=== PATIENT | male | born 1955 | race Caucasian/White ===

== ENCOUNTER 2020-05-15 10:33 | Outpatient (REF) | payer MEDICARE, SELFPAY ==
[2020-05-15 11:44] LABS: MANUAL DIFF FLAG NO
[2020-05-15 11:57] LABS: Basophils Absolute Auto 0.1 X10*3/uL (0.0-0.2); Eosinophils Absolute Auto 0.1 X10*3/uL (0.0-0.4); Hematocrit 35.2 % (42-52); Hemoglobin 11.7 g/dl (14.0-18.0); Imm Gran Abs Auto 0.04 X10*3/uL (0.00-0.03); Imm Gran Pct Auto 0.7 % (0.0-0.4); Lymphocytes Absolute Auto 1.7 X10*3/uL (1.2-4.9); Lymphocytes Percent Auto 26.9 % (20-40); Mean Corpuscular HGB Conc 33.2 g/dl (31.0-36.0); Mean Corpuscular Hemoglobin 32.1 pg (27.0-33.0); Mean Corpuscular Volume 96.4 fL (80-98); Mean Platelet Volume 11.2 fL (9.4-12.4); Monocytes Absolute Auto 0.6 X10*3/uL (0.1-1.2); Monocytes Percent Auto 10.3 % (2-11); Neutrophils Absolute Auto 3.6 X10*3/uL (2.0-8.3); Neutrophils Percent Auto 59.1 % (45-73); Platelet Count 264 X10*3/uL (160-400); Red Blood Count 3.65 X10*6/uL (4.60-5.80); Red Cell Distribution Width 11.9 % (11.0-16.0); White Blood Count 6.1 X10*3/uL (4.8-10.8)
[2020-05-15 12:06] LABS: Glucose Urine UA NEG (NEG); Leukocyte Esterase Urine NEG (NEG); Nitrite Urine NEG (NEG); PH 6.5 (5.0-8.0); Urine Blood TRACE (NEG); Urine Ketones NEG (NEG); Urine Protein 1+ MG/DL (NEG-TRACE)
[2020-05-15 12:09] LABS: Appearance Urine CLEAR; Color Urine YELLOW
[2020-05-15 12:16] LABS: Alanine Aminotransferase 24 U/L (0-40); Albumin Level 4.1 g/dL (3.5-5.0); Alkaline Phosphatase 57 U/L (39-117); Aspartate Amino Transferase 21 U/L (5-37); Bilirubin Total 0.5 mg/dL (0.0-1.0); Blood Urea Nitrogen 12 mg/dL (9-16); Calcium 8.7 mg/dL (8.4-10.2); Cholesterol 126 mg/dL; Estimated Glomerular Filt Rate > 60; Glucose Fasting 141 mg/dL (60-99); HDL Cholesterol 47 mg/dL; LDL Cholesterol Calculated 63 mg/dl; Total Protein 6.3 g/dL (6.5-8.0); Triglycerides 81 mg/dL
[2020-05-15 12:18] LABS: WBC Urine 0 /HPF (0-4)
[2020-05-15 12:19] LABS: RBC Urine 0-2 /HPF (0)
[2020-05-15 12:25] LABS: Anion Gap 12 (12-20); Carbon Dioxide 25 mmol/L (22-29); Chloride 100 mmol/L (96-108); Potassium 5.4 mmol/l (3.3-5.1); Sodium 132 mmol/L (135-145)
[2020-05-15 12:37] LABS: TSH reflex Free T4 1.19 mIU/mL (0.32-4.0)
[2020-05-15 12:45] LABS: Creatinine Urine 51.78 mg/dL; Microalbum/Creatinine Ratio Ur 843.9 ug/mg cr
[2020-05-15 12:54] LABS: Vitamin B12 281 pg/mL (200-900)
== END 2020-05-15 10:34 | disposition home or self-care (01) ==
LOC: HO.LAB 10:33
PROVIDERS: PCP Internal Medicine; Visit Provider Internal Medicine
DX: E11.42 Type 2 diabetes mellitus with diabetic polyneuropathy (principal); Z79.4 Long term (current) use of insulin; I10 Essential (primary) hypertension; R80.9 Proteinuria, unspecified; K21.9 Gastro-esophageal reflux disease without esophagitis; K50.919 Crohn's disease, unspecified, with unspecified complications; E78.00 Pure hypercholesterolemia, unspecified
CPT/HCPCS: 36415; 80053; 80061; 81001; 81003; 82043; 82607; 82746; 84443; 85025

== ENCOUNTER → 2020-05-31 13:26 | Outpatient (BNVA) | payer MEDICARE, SELFPAY | PROVIDERS: Visit Provider Internal Medicine Gastroenterology | DX: Z13.89 Encounter for screening for other disorder (principal) | CPT/HCPCS: Q3014 ==

== ENCOUNTER 2020-06-12 14:12 | Outpatient (REF) | payer MEDICARE, SELFPAY ==
--- NOTE | 2020-06-12 14:16 | XR_ITS ---
EXAMINATION: XR CHEST CLINICAL INFORMATION: Cough COMPARISON: Chest radiographs 01/21/2019, 03/30/2012 TECHNIQUE: 2 views of the chest were obtained. FINDINGS: Lungs are clear. There is no airspace consolidation or groundglass opacity. The costophrenic sulci are well-defined. There is no effusion. Heart is borderline enlarged similar to prior study. The hilar and mediastinal contours and bony structures are stable. XR/XR chest 2V IMPRESSION: Unremarkable examination.
== END 2020-06-12 14:13 | disposition home or self-care (01) ==
LOC: HO.XRAY 14:12
PROVIDERS: PCP Internal Medicine; Visit Provider Internal Medicine
DX: R05 Cough (principal)
CPT/HCPCS: 71046

== ENCOUNTER 2021-02-14 13:29 | Outpatient (REF) | payer MEDICARE, SELFPAY ==
[2021-02-14 15:45] LABS: MANUAL DIFF FLAG NO
[2021-02-14 15:50] LABS: Basophils Absolute Auto 0.1 X10*3/uL (0.0-0.2); Basophils Percent Auto 0.7 % (0-2); Eosinophils Absolute Auto 0.1 X10*3/uL (0.0-0.4); Eosinophils Percent Auto 1.4 % (0-4); Hematocrit 33.4 % (42-52); Hemoglobin 11.8 g/dl (14.0-18.0); Imm Gran Abs Auto 0.04 X10*3/uL (0.00-0.03); Imm Gran Pct Auto 0.6 % (0.0-0.4); Lymphocytes Absolute Auto 1.5 X10*3/uL (1.2-4.9); Lymphocytes Percent Auto 20.3 % (20-40); Mean Corpuscular HGB Conc 35.3 g/dl (31.0-36.0); Mean Corpuscular Hemoglobin 32.9 pg (27.0-33.0); Mean Platelet Volume 10.7 fL (9.4-12.4); Monocytes Absolute Auto 0.8 X10*3/uL (0.1-1.2); Monocytes Percent Auto 11.1 % (2-11); Neutrophils Absolute Auto 4.7 X10*3/uL (2.0-8.3); Neutrophils Percent Auto 65.9 % (45-73); Platelet Count 280 X10*3/uL (160-400); Red Blood Count 3.59 X10*6/uL (4.60-5.80); White Blood Count 7.2 X10*3/uL (4.8-10.8)
[2021-02-14 16:07] LABS: Alanine Aminotransferase 32 U/L (0-40); Albumin Level 4.3 g/dL (3.5-5.0); Alkaline Phosphatase 71 U/L (39-117); Anion Gap 13 (12-20); Aspartate Amino Transferase 23 U/L (5-37); Blood Urea Nitrogen 11 mg/dL (9-16); C Reactive Protein 0.07 mg/dL (< or = 0.50); Calcium 9.3 mg/dL (8.4-10.2); Carbon Dioxide 22 mmol/L (22-29); Chloride 97 mmol/L (96-108); Estimated Glomerular Filt Rate > 60; Glucose Random 124 mg/dL (60-115); Lipase 43 U/L (8-78); Potassium 5.5 mmol/L (3.3-5.1); Sodium 126 mmol/L (135-145); Total Protein 6.8 g/dL (6.5-8.0)
[2021-02-15 08:59] LABS: CDiff Gene PCR NEGATIVE (Negative)
[2021-02-20 22:41] LABS: Calprotectin, Fecal 19 mcg/g
== END 2021-02-14 13:30 | disposition home or self-care (01) ==
LOC: HO.LAB 13:29
PROVIDERS: PCP Physician Assistant; Referring Provider Physician Assistant; Visit Provider Internal Medicine Gastroenterology
DX: R11.2 Nausea with vomiting, unspecified (principal); K50.919 Crohn's disease, unspecified, with unspecified complications; K21.9 Gastro-esophageal reflux disease without esophagitis; E11.42 Type 2 diabetes mellitus with diabetic polyneuropathy; Z79.4 Long term (current) use of insulin; Z86.010 Personal history of colon polyps
CPT/HCPCS: 36415; 80053; 81335; 83690; 83993; 85025; 86140; 87493; 99212

== ENCOUNTER 2021-02-14 17:42 | Emergency (ER) | payer MEDICARE, SELFPAY ==
--- NOTE | 2021-02-14 | ECG_ITS ---
Test Reason : ABNORMAL LABS Blood Pressure : / mmHG Vent. Rate : 056 BPM Atrial Rate : 056 BPM P-R Int : 180 ms QRS Dur : 086 ms QT Int : 430 ms P-R-T Axes : -02 026 047 degrees QTc Int : 414 ms Sinus bradycardia Otherwise normal ECG When compared with ECG of 15-JUL-2019 10:10, No significant change was found Referred By: Generic ED Physician Electronically Signed By:UMANG THORNTON
[2021-02-14 17:58] VITALS: BP 176/74; PULSE 60; RESP 18; TEMP 36.7; O2SAT 97; BMI 31.6
--- NOTE | 2021-02-14 19:04 | PC.NURSE ---
IV established, labs obtained. Awaiting primary MD parra.
[2021-02-14 19:05] VITALS: BP 184/90; PULSE 56; RESP 20; TEMP 37.1; O2SAT 99
[2021-02-14 19:09] LABS: MANUAL DIFF FLAG NO
[2021-02-14 19:10] LABS: Basophils Absolute Auto 0.1 X10*3/uL (0.0-0.2); Basophils Percent Auto 0.7 % (0-2); Eosinophils Absolute Auto 0.1 X10*3/uL (0.0-0.4); Eosinophils Percent Auto 1.4 % (0-4); Hemoglobin 11.4 g/dl (14.0-18.0); Imm Gran Abs Auto 0.04 X10*3/uL (0.00-0.03); Imm Gran Pct Auto 0.6 % (0.0-0.4); Lymphocytes Absolute Auto 1.6 X10*3/uL (1.2-4.9); Lymphocytes Percent Auto 21.7 % (20-40); Mean Corpuscular HGB Conc 35.6 g/dl (31.0-36.0); Mean Corpuscular Volume 92.8 fL (80-98); Mean Platelet Volume 10.7 fL (9.4-12.4); Monocytes Absolute Auto 0.9 X10*3/uL (0.1-1.2); Monocytes Percent Auto 11.7 % (2-11); Neutrophils Absolute Auto 4.6 X10*3/uL (2.0-8.3); Neutrophils Percent Auto 63.9 % (45-73); Platelet Count 247 X10*3/uL (160-400); Red Blood Count 3.45 X10*6/uL (4.60-5.80); White Blood Count 7.2 X10*3/uL (4.8-10.8)
[2021-02-14 19:25] LABS: Blood Urea Nitrogen 11 mg/dL (9-16); Calcium 9.1 mg/dL (8.4-10.2); Creatinine Clr Calc Pharmacy 96.9; Estimated Glomerular Filt Rate > 60; Glucose Random 120 mg/dL (60-115)
[2021-02-14 19:30] LABS: Troponin-I High Sensitivity 9.9 ng/L (<3.5-35.0)
[2021-02-14 19:35] LABS: Anion Gap 13 (12-20); Carbon Dioxide 22 mmol/L (22-29); Chloride 96 mmol/L (96-108); Sodium 126 mmol/L (135-145)
[2021-02-14 19:51] LABS: Osmolality, Serum 273 mosm/kg (281-305)
[2021-02-14 20:00] VITALS: BP 197/80; PULSE 56; RESP 16; TEMP 37.1; O2SAT 99
[2021-02-14 20:19] LABS: Glucose Urine UA NEG (NEG); Leukocyte Esterase Urine NEG (NEG); Nitrite Urine NEG (NEG); UACC Culture Trigger NO; Urine Blood NEG (NEG); Urine Ketones NEG (NEG); Urine Protein 2+ MG/DL (NEG-TRACE)
[2021-02-14 20:20] LABS: Appearance Urine CLEAR; Color Urine YELLOW
[2021-02-14 20:26] LABS: RBC Urine 0 /HPF (0); Squamous Epithelial Cell Urine TRACE /LPF; WBC Urine 0 /HPF (0-4)
[2021-02-14 20:28] LABS: Osmolality Urine 271 mosm/kg (373-1093)
[2021-02-14] MEDS: 0.9 % Sodium Chloride 1,000 ML 999 ML IV (21:19)
--- NOTE | 2021-02-14 21:25 | ED_ITS ---
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 The patient states that he has been having diarrhea for 3-4 hours multiple times a day for the last month. He states that he had a scheduled appointment to see his auto seat cover installer today. The patient does have essential hypertension. The auto seat cover installer found that patient was hypertensive with a blood pressure of 184/84. A gastrologist also checked blood work on the patient and the patient was hyponatremic with a sodium of 126 and hyperkalemic with a potassium of 5.5. The patient was advised to go to the emergency department for evaluation. The patient states that he has been feeli ng extremely fatigued and tired for approximately 1 month. He states these had severe lethargy as well. The patient states that he has been drinking a large amount of fluid than usual. He states that he drinks anywhere from 2-312 oz bottles of water per day. He denied fever, chills, chest pain, shortness of breath, dyspnea on exertion, frequency, urgency or dysuria. The patient is a diabetic but he states that he has not been checking his glucose for the last 2- 3 months and is uncertain what his glucose levels have been. Related Data Home Medications Medication Instructions Recorded Confirmed aspirin 81 mg tablet,delayed 81 mg PO DAILY 04/10/20 02/14/21 release (Adult Low Dose Aspirin) dulaglutide 0.75 mg/0.5 mL 0.75 mg SUBCUT QWEEK 06/12/20 02/14/21 subcutaneous pen injector (Trulicity) Previous Rx's Medication Instructions Recorded pen needle, diabetic 31 gauge x See Rx Instructions .ROUTE 03/18/2010/28 (Easy Touch) .COMPLEX 30 Days #60 ea fluticasone propionate 50 1 spray INTRANASAL DAILY #16 cap 06/12/20 mcg/actuation nasal spray,suspension insulin glargine 100 unit/mL (3 60 unit SUBCUT DAILY 30 Days #15 ml 09/26/20 mL) subcutaneous pen (Lantus Solostar U-100 Insulin) cetirizine 10 mg capsule (Zyrtec) 10 mg PO DAILY PRN 90 Days #90 cap 11/27/20 atenolol 50 mg tablet 50 mg PO DAILY #30 tab 11/28/20 atorvastatin 40 mg tablet 40 mg PO DAILY #90 tab 11/28/20 metformin 1,000 mg tablet 1,000 mg PO BID #60 tab 11/28/20 nystatin 100,000 unit/gram topical 1 appl TOPICAL DAILY 15 Days #30 g 11/28/20 cream omeprazole 40 mg capsule,delayed 40 mg PO DAILY #30 cap 12/14/20 release trazodone 50 mg tablet 50 mg PO BEDTIME #30 tab 12/14/20 fluoxetine 10 mg capsule 10 mg PO QAM #30 cap 12/25/20 irbesartan 300 mg tablet 300 mg PO DAILY #90 cap 01/21/21 omeprazole 40 mg capsule,delayed 40 mg PO BID 90 Days #180 cap 02/14/21 release Allergies Allergy/AdvReac Type Severity Reaction Status Date / Time sertraline [SERTRALINE] Allergy Severe RASH, ABD Verified 02/14/21 17:58 PAIN DEHYDRATION Penicillins [PENICILLINS] Allergy Intermediate RASH Verified 02/14/21 17:58 Review of Systems Review of Systems: Yes all other systems are reviewed and are negative [facility] Past Medical History [facility] Narrative: Past surgical history: None. Social history: The patient denies tobacco use. He states that he drinks 212 packs of beer per week. He denies drug use. 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 Microalbuminuria Obesity (BMI 30-39.9) Primary osteoarthritis, left shoulder Pure hypercholesterolemia Recurrent cough Type 2 diabetes mellitus with diabetic polyneuropathy Surgical History History of esophagogastroduodenoscopy (EGD) History of umbilical hernia repair Hx of colonoscopy Family History Family History Father Diabetes Melanoma Mother Diabetes Hypertension Cancer Sister Diabetes Social History Social History Housing: Apartment Alcohol intake: current Alcohol intake frequency: a few times a week Second Hand Smoke Exposure: No Advance Directives: No Advance Directives Information Provided: No service: No Current occupational status: employed Physical Exam Vital Signs: Vital Signs: Last Vital Signs Temp 98.8 F 02/14/21 20:00 Pulse 56 02/14/21 20:00 Resp 16 02/14/21 20:00 BP 197/80 H 02/14/21 20:00 Pulse Ox 99 02/14/21 20:00 Body Mass Index 31.6 Const: General: cooperative and no acute distress Orientation/consciousness: oriented to person and oriented to place Limitations: no limitations HENMT: Head: Yes normal to inspection, Yes normocephalic and Yes atraumatic Ears: external ears normal General nose exam: Normal external nose present Face and sinus: Yes normal facial exam Mouth: Normal oral and palatal mucosa present Throat: Yes posterior oropharynx normal Eyes: General: appearance normal, both eyes and all related structures Pupils: Equal, round and reactive pupils present Neck: Neck: Yes normal visual inspection, Yes no lymphadenopathy, Yes trachea midline and Yes supple Chest: Chest palpation & inspection: normal inspection of the chest and normal palpation of entire chest wall Resp: Effort & Inspection: normal respiratory effort and able to speak in complete sentences Auscultation: clear to auscultation bilaterally Cardio: Rate: regular rate Rhythm: regular rhythm Heart sounds: S1 normal heart sound present, S2 normal heart sound present and no murmurs GI: Inspection: Yes normal to inspection Palpation (GI): Soft to palpation, nontender and no guarding Auscultation: normal bowel sounds : General: Yes no CVA tenderness Back/Spine/Pelvis: Back: no CVA tenderness Skin: General skin exam: no rashes or lesions noted Neuro: General: oriented to person and oriented to place Cranial nerves: Yes CN's II-XII intact bilaterally and Yes Equal, round and reactive pupils present Cognition (Neuro): normal cognition Motor exam (neuro): 5/5 motor strength present throughout Extrem: General: Yes normal to inspection Psych: Appearance: grossly normal Speech and movement: Normal speech and movement present Affect: normal affect Attitude: cooperative Thought process: Normal thought process present Thought content: Normal thought content present Course Course Course Narrative: 65-year-old male who was sent to the emergency department for evaluation of hypertension, hyponatremia and hyperkalemia. Patient does have a history of Crohn's disease and has had multiple episodes of loose stool per day for several months. He has also been drinking increased amounts of water over the past several months. Patient did complain of fatigue and lethargy otherwise had no other complaints. Vital signs did reveal elevated blood pressures ranging from 176/174 to 197/80 however the patient was relatively asymptomatic. His 12 EKG revealed a sinus bradycardia, but the patient is taking atenolol for his blood pressure. Repeat laboratory evaluation revealed mild anemia with an H&H of 11.4 and 32. Patient's sodium was 126 which was low but his potassium was normal at 5.0. The patient had a low serum osmolality and a low urine osmolality suggesting that is low-sodium was secondary to drinking too much water. Patient's glucose was only slightly elevated at 120. The patient was given sodium chloride 1 L IV. Patient was discharged home. He was advised to l imited his water intake to at small amounts only when he is thirsty. The patient was advised to check his blood pressure on Thursday, Thursday and Thursday in the morning for 2 weeks and discuss these blood pressure medications with his primary care provider. Patient was discharged home The patient was given verbal and printed instructions prior to discharge. The patient was advised to follow-up with his PCP in 2 days and to return to the emergency department if his symptoms get worse or if he develops any new symptoms that are concerning to him. Medical Decision Making Lab Data Result diagrams: 02/14/21 19:02/14/21 19:03 Labs: Lab Results 02/14/21 02/14/21 02/14/21 Range/Units 19:03 19:03 19:03 WBC 7.2 (4.8-10.8) X10*3/uL RBC 3.45 L (4.60-5.80) X10*6/uL Hgb 11.4 L (14.0-18.0) g/dl Hct 32.0 L (42-52) % MCV 92.8 (80-98) fL MCH 33.0 (27.0-33.0) pg MCHC 35.6 (31.0-36.0) g/dl RDW 12.0 (11.0-16.0) % Plt Count 247 (160-400) X10*3/uL MPV 10.7 (9.4-12.4) fL Immature Gran % (Auto) 0.6 H (0.0-0.4) % Neut % (Auto) 63.9 (45-73) % Lymph % (Auto) 21.7 (20-40) % [place] % (Auto) 11.7 H (2-11) % Eos % (Auto) 1.4 (0-4) % Baso % (Auto) 0.7 (0-2) % Lymph # (Auto) 1.6 (1.2-4.9) X10*3/uL [place] # (Auto) 0.9 (0.1-1.2) X10*3/uL Eos # (Auto) 0.1 (0.0-0.4) X10*3/uL Baso # (Auto) 0.1 (0.0-0.2) X10*3/uL Abs Immat Gran (auto) 0.04 H (0.00-0.03) X10*3/uL Absolute Neuts (auto) 4.6 (2.0-8.3) X10*3/uL Absolute Nucleated RBC 0.000 (0.0-0.012) X10*3/uL Nucleated RBC % (auto) 0.0 (0.0-0.2) /100WBC Sodium 126 L (135-145) mmol/L Potassium 5.0 (3.3-5.1) mmol/L Chloride 96 (96-108) mmol/L Carbon Dioxide 22 (22-29) mmol/L Anion Gap 13 (12-20) BUN 11 (9-16) mg/dL Creatinine 0.97 (0.5-1.4) mg/dL Estim Creat Clear Calc 96.9 Estimated GFR > 60 Random Glucose 120 H (60-115) mg/dL Osmolality (281-305) mosm/kg Calcium 9.1 (8.4-10.2) mg/dL Troponin I High Sens 9.9 (<3.5-35.0) ng/L Urine Color Urine Appearance Urine pH (5.0-8.0) Ur Specific [place] (1.005-1.025) Urine Protein (NEG-TRACE) MG/DL Urine Glucose (UA) (NEG) MG/DL Urine Ketones (NEG) MG/DL Urine Blood (NEG) Urine Nitrite (NEG) Ur Leukocyte Esterase (NEG) Urine RBC (0) /HPF Urine WBC (0-4) /HPF Ur Squamous Epith Cells /LPF Urine Bacteria /LPF Urine Osmolality (373-1093) mosm/kg Ur Random Sodium mmol/L 02/14/21 02/14/21 02/14/21 Range/Units 19:03 20:11 20:11 WBC (4.8-10.8) X10*3/uL RBC (4.60-5.80) X10*6/uL Hgb (14.0-18.0) g/dl Hct (42-52) % MCV (80-98) fL MCH (27.0-33.0) pg MCHC (31.0-36.0) g/dl RDW (11.0-16.0) % Plt Count (160-400) X10*3/uL MPV (9.4-12.4) fL Immature Gran % (Auto) (0.0-0.4) % Neut % (Auto) (45-73) % Lymph % (Auto) (20-40) % [place] % (Auto) (2-11) % Eos % (Auto) (0-4) % Baso % (Auto) (0-2) % Lymph # (Auto) (1.2-4.9) X10*3/uL [place] # (Auto) (0.1-1.2) X10*3/uL Eos # (Auto) (0.0-0.4) X10*3/uL Baso # (Auto) (0.0-0.2) X10*3/uL Abs Immat Gran (auto) (0.00-0.03) X10*3/uL Absolute Neuts (auto) (2.0-8.3) X10*3/uL Absolute Nucleated RBC (0.0-0.012) X10*3/uL Nucleated RBC % (auto) (0.0-0.2) /100WBC Sodium (135-145) mmol/L Potassium (3.3-5.1) mmol/L Chloride (96-108) mmol/L Carbon Dioxide (22-29) mmol/L Anion Gap (12-20) BUN (9-16) mg/dL Creatinine (0.5-1.4) mg/dL Estim Creat Clear Calc Estimated GFR Random Glucose (60-115) mg/dL Osmolality 273 L (281-305) mosm/kg Calcium (8.4-10.2) mg/dL Troponin I High Sens (<3.5-35.0) ng/L Urine Color YELLOW Urine Appearance CLEAR Urine pH 6.0 (5.0-8.0) Ur Specific [place] 1.010 (1.005-1.025) Urine Protein 2+ H (NEG-TRACE) MG/DL Urine Glucose (UA) NEG (NEG) MG/DL Urine Ketones NEG (NEG) MG/DL Urine Blood NEG (NEG) Urine Nitrite NEG (NEG) Ur Leukocyte Esterase NEG (NEG) Urine RBC 0 (0) /HPF Urine WBC 0 (0-4) /HPF Ur Squamous Epith Cells TRACE /LPF Urine Bacteria NONE /LPF Urine Osmolality 271 L (373-1093) mosm/kg Ur Random Sodium mmol/L 02/14/21 Range/Units 20:11 WBC (4.8-10.8) X10*3/uL RBC (4.60-5.80) X10*6/uL Hgb (14.0-18.0) g/dl Hct (42-52) % MCV (80-98) fL MCH (27.0-33.0) pg MCHC (31.0-36.0) g/dl RDW (11.0-16.0) % Plt Count (160-400) X10*3/uL MPV (9.4-12.4) fL Immature Gran % (Auto) (0.0-0.4) % Neut % (Auto) (45-73) % Lymph % (Auto) (20-40) % [place] % (Auto) (2-11) % Eos % (Auto) (0-4) % Baso % (Auto) (0-2) % Lymph # (Auto) (1.2-4.9) X10*3/uL [place] # (Auto) (0.1-1.2) X10*3/uL Eos # (Auto) (0.0-0.4) X10*3/uL Baso # (Auto) (0.0-0.2) X10*3/uL Abs Immat Gran (auto) (0.00-0.03) X10*3/uL Absolute Neuts (auto) (2.0-8.3) X10*3/uL Absolute Nucleated RBC (0.0-0.012) X10*3/uL Nucleated RBC % (auto) (0.0-0.2) /100WBC Sodium (135-145) mmol/L Potassium (3.3-5.1) mmol/L Chloride (96-108) mmol/L Carbon Dioxide (22-29) mmol/L Anion Gap (12-20) BUN (9-16) mg/dL Creatinine (0.5-1.4) mg/dL Estim Creat Clear Calc Estimated GFR Random Glucose (60-115) mg/dL Osmolality (281-305) mosm/kg Calcium (8.4-10.2) mg/dL Troponin I High Sens (<3.5-35.0) ng/L Urine Color Urine Appearance Urine pH (5.0-8.0) Ur Specific [place] (1.005-1.025) Urine Protein (NEG-TRACE) MG/DL Urine Glucose (UA) (NEG) MG/DL Urine Ketones (NEG) MG/DL Urine Blood (NEG) Urine Nitrite (NEG) Ur Leukocyte Esterase (NEG) Urine RBC (0) /HPF Urine WBC (0-4) /HPF Ur Squamous Epith Cells /LPF Urine Bacteria /LPF Urine Osmolality (373-1093) mosm/kg Ur Random Sodium 32.0 mmol/L ECG Data Attestation: I personally reviewed and interpreted this ECG as follows: Interpretation: 1905: Sinus bradycardia with a rate of 56, normal [place] interval, QRS duration and QTC interval, inverted T-wave in lead V1, no ST segment elevation, no ST segment depression, no PACs, no PVCs, except for the sinus bradycardia, this is a normal EKG. Discharge Plan Discharge Clinical Impression: Acute hyponatremia, Essential hypertension Patient Disposition: Home, Self-Care Instructions: Hyponatremia (ED) Additional Instructions: Your serum sodium was low but your serum was dilute and your urine was dilute as well suggesting that your drinking too much water as the cause of your low sodium. You should only drink small amounts of water when your thirsty and drink other fluids that have salt and electrolytes in it. The reason to check your blood pressure at home is to give your doctor an idea of what your blood pressure does when you are not in the doctor's office. Take your blood pressure in the morning, on Mondays, Wednesdays and Fridays and then write down these readings to discuss them with your doctor at your next visit. If you doctor decides that your blood pressure readings are high than your doctor will start you on medications. If you get started on medications, it often takes 1-2 months or longer to get your blood pressure under control. Lowering your blood pressure to rapidly or getting your blood pressure too low quickly can make you feel bad. Please return to the emergency department if you develops concerning symptoms such as severe headache, chest pain, shortness of breath, difficulty walking secondary to shortness of breath, numbness, weakness, difficulty talking. Take Tylenol (acetaminophen) 500 mg pills, 2 pills every 4 to 6 hours as needed for pain. Follow-up with your doctor to discuss your blood pressure readings. Please return to the emergency department if your symptoms get worse or if you develop any new symptoms that are concerning to you. Prescriptions: No Action pen needle, diabetic [Easy Touch] 31 gauge x 5/16 needle See Rx Instructions .ROUTE .COMPLEX 30 Days Qty: 60 RF: 3 Lantus Solostar U-100 Insulin 100 unit/mL (3 mL) insulin pen 60 unit subcut DAILY 30 Days Qty: 15 RF: 12 nystatin 100,000 unit/gram cream 1 appl topical DAILY 15 Days Qty: 30 RF: 0 atenolol 50 mg tablet 50 mg PO DAILY Qty: 30 RF: 3 metformin 1,000 mg tablet 1,000 mg PO BID Qty: 60 RF: 3 atorvastatin 40 mg tablet 40 mg PO DAILY Qty: 90 RF: 0 omeprazole 40 mg capsule,delayed release(DR/EC) 40 mg PO DAILY Qty: 30 RF: 5 trazodone 50 mg tablet 50 mg PO BEDTIME Qty: 30 RF: 5 fluoxetine 10 mg capsule 10 mg PO QAM Qty: 30 RF: 3 irbesartan 300 mg tablet 300 mg PO DAILY Qty: 90 RF: 1 omeprazole 40 mg capsule,delayed release(DR/EC) 40 mg PO BID 90 Days Qty: 180 RF: 0 aspirin [Adult Low Dose Aspirin] 81 mg tablet,delayed release (DR/EC) 81 mg PO DAILY RF: 0 Zyrtec 10 mg capsule 10 mg PO DAILY PRN (Reason: allergy symptoms) 90 Days Qty: 90 RF: 1 Trulicity 0.75 mg/0.5 mL pen injector 0.75 mg subcut QWEEK RF: 0 fluticasone propionate 50 mcg/actuation spray,suspension 1 spray intranasal DAILY Qty: 16 RF: 5
[2021-02-14 22:00] VITALS: BP 210/95; PULSE 58; RESP 16; TEMP 36.9; O2SAT 99
--- NOTE | 2021-02-14 22:00 | PC.NURSE ---
Pt ambulating to the bathroom with a steady gait. Aware of plan to finish IVF and discharge home.
--- NOTE | 2021-02-14 22:11 | PC.NURSE ---
Pt noted to be hypertensive. Pt self reports missing doses of antihypertensives, states he has not taken his PM dose as of yet.
--- NOTE | 2021-02-14 22:14 | PC.NURSE ---
MD aware of BP, per MD continue to discharge home as pt plans to take his antihypertensive once home.
== END 2021-02-14 22:24 | disposition home or self-care (01) ==
PROVIDERS: Emergency Provider Emergency Medicine Emergency Medical Services; PCP Internal Medicine
DX: E23.2 Diabetes insipidus (principal); R79.89 Other specified abnormal findings of blood chemistry; Z79.899 Other long term (current) drug therapy
CPT/HCPCS: 36415; 80048; 81001; 83930; 83935; 84300; 84484; 85025; 93005; 96360; 99284

== ENCOUNTER 2021-03-15 10:12 | Outpatient (REF) | payer MEDICARE, SELFPAY ==
[2021-03-15 10:27] LABS: MANUAL DIFF FLAG NO
[2021-03-15 10:58] LABS: Basophils Absolute Auto 0.1 X10*3/uL (0.0-0.2); Basophils Percent Auto 1.2 % (0-2); Eosinophils Absolute Auto 0.1 X10*3/uL (0.0-0.4); Eosinophils Percent Auto 1.3 % (0-4); Hematocrit 32.1 % (42-52); Hemoglobin 10.6 g/dl (14.0-18.0); Imm Gran Abs Auto 0.02 X10*3/uL (0.00-0.03); Imm Gran Pct Auto 0.3 % (0.0-0.4); Lymphocytes Absolute Auto 1.4 X10*3/uL (1.2-4.9); Lymphocytes Percent Auto 22.5 % (20-40); Mean Corpuscular Hemoglobin 31.6 pg (27.0-33.0); Mean Corpuscular Volume 95.8 fL (80-98); Mean Platelet Volume 10.9 fL (9.4-12.4); Monocytes Absolute Auto 0.6 X10*3/uL (0.1-1.2); Monocytes Percent Auto 9.2 % (2-11); Neutrophils Absolute Auto 3.9 X10*3/uL (2.0-8.3); Neutrophils Percent Auto 65.5 % (45-73); Platelet Count 337 X10*3/uL (160-400); Red Blood Count 3.35 X10*6/uL (4.60-5.80); Red Cell Distribution Width 11.8 % (11.0-16.0)
[2021-03-15 11:05] LABS: Estimated Average Glucose 126 mg/dL
[2021-03-15 11:28] LABS: Alanine Aminotransferase 33 U/L (0-40); Albumin Level 4.3 g/dL (3.5-5.0); Alkaline Phosphatase 58 U/L (39-117); Anion Gap 12 (12-20); Aspartate Amino Transferase 23 U/L (5-37); Bilirubin Total 0.6 mg/dL (0.0-1.0); Blood Urea Nitrogen 23 mg/dL (9-16); Calcium 9.7 mg/dL (8.4-10.2); Carbon Dioxide 26 mmol/L (22-29); Chloride 104 mmol/L (96-108); Cholesterol 217 mg/dL; Estimated Glomerular Filt Rate 53; Glucose Fasting 131 mg/dL (60-99); HDL Cholesterol 37 mg/dL; LDL Cholesterol Calculated 144 mg/dl; Potassium 5.5 mmol/L (3.3-5.1); Sodium 136 mmol/L (135-145); Total Protein 6.5 g/dL (6.5-8.0); Triglycerides 183 mg/dL
[2021-03-15 11:50] LABS: TSH reflex Free T4 2.27 uIU/mL (0.32-4.0); Vitamin D 25-OH Total 31.1 ng/mL (>30)
[2021-03-15 11:52] LABS: Prostate Specific Antigen Scr 0.79 ng/mL (<0.05-4.0)
[2021-03-15 12:06] LABS: Creatinine Urine 165.42 mg/dL; Microalbum/Creatinine Ratio Ur 1031.3 ug/mg cr
[2021-03-15 12:56] LABS: Appearance Urine CLEAR; Color Urine YELLOW; Glucose Urine UA NEG (NEG); Leukocyte Esterase Urine NEG (NEG); Nitrite Urine NEG (NEG); UACC Culture Trigger NO; Urine Blood NEG (NEG); Urine Ketones NEG (NEG); Urine Protein 2+ MG/DL (NEG-TRACE)
[2021-03-15 13:02] LABS: RBC Urine 0 /HPF (0); Squamous Epithelial Cell Urine TRACE /LPF; WBC Urine 0 /HPF (0-4)
[2021-03-16 15:15] LABS: Potassium 5.5 mmol/L (3.3-5.1); Sodium 135 mmol/L (135-145)
[2021-03-16 15:16] LABS: Anion Gap 11 (12-20); Carbon Dioxide 26 mmol/L (22-29); Chloride 104 mmol/L (96-108)
[2021-03-16 15:17] LABS: Blood Urea Nitrogen 23 mg/dL (9-16); Estimated Glomerular Filt Rate 52; Glucose Fasting 129 mg/dL (60-99)
[2021-03-16 15:18] LABS: Calcium 9.7 mg/dL (8.4-10.2); Cholesterol 215 mg/dL; LDL Cholesterol Calculated 142 mg/dl; Triglycerides 182 mg/dL
[2021-03-16 15:19] LABS: HDL Cholesterol 37 mg/dL
== END 2021-03-15 10:13 | disposition home or self-care (01) ==
LOC: HO.LAB 10:12
PROVIDERS: Nurse Practitioner Family; PCP Internal Medicine; Visit Provider Internal Medicine Gastroenterology
DX: Z00.00 Encounter for general adult medical examination without abnormal findings (principal); Z12.5 Encounter for screening for malignant neoplasm of prostate; K50.919 Crohn's disease, unspecified, with unspecified complications; I10 Essential (primary) hypertension; K21.9 Gastro-esophageal reflux disease without esophagitis; E78.00 Pure hypercholesterolemia, unspecified; E11.42 Type 2 diabetes mellitus with diabetic polyneuropathy; Z79.4 Long term (current) use of insulin; R80.9 Proteinuria, unspecified; E66.9 Obesity, unspecified; M19.012 Primary osteoarthritis, left shoulder
CPT/HCPCS: 36415; 80048; 80053; 80061; 81001; 81003; 82043; 82306; 82947; 83036; 84153; 84443; 85025

== ENCOUNTER 2021-04-03 10:00 | Outpatient (RCR) | payer MEDICARE, SELFPAY ==
--- NOTE | 2021-03-15 09:55 | MHC.PT.EP ---
[facility] [employer] [facility] [place] [facility] [place] Office [address] [phone] F: [phone] F: [phone] F: [phone] F: [phone] Physical Therapy Plan of Care Date of Evaluation: Date of Surgery: N/A Diagnosis: LBP pain in L leg pain in L shoulder Assessment: pt overall is vague in his responses and has difficulty describing pain and activities that reproduce it. pt presents w/ adequate strength but significantly reduced flexibility and AROM. pt presents to physical therapy with pain, decreased range of motion, decreased strength, impaired functional mobility, impaired postural awareness, and gait deviations. pt is a good candidate for skilled PT due to age, potential remediation of impairments, typical disease/condition progression and prognosis, comorbidities, and motivation. pt would benefit from tailored strengthening and stretching exercise program, functional training, gait training, postural re-training, neuromuscular re-education, modalities as needed for pain, equipment safety demonstration. Frequency and Duration: The patient will be seen 2x/wk for 6 wks Short Term Goals: pt will be I w/ HEP to promote self-management of condition. pt will demo proper sitting posture w/ lumbar roll to promote neutral spine w/ self-care activities and eating. pt will improve hamstring length by 15* to remediate gait impairments on even ground. Zinc Skimmer Goals: pt will report <1/10 L shoulder pain w/ reaching overhead to objects in cabinets. pt will lift 30# object from ground to waist height x5 reps w/ proper lifting mechanics to promote return to functional lifting. pt will report <1/10 B knee pain w/ ambulation of >2500' on even ground w/ LRAD to promote pain-free return to community ambulation. Treatment Plan: Modalities to reduce pain, spasms and effusion. Manual therapy to restore motion and function. Therapeutic exercise to improve strength and flexibility. Neuromuscular re-education for posture and balance. Therapeutic activities to return to functional activities of daily living. Electronically signed by: Sandi Meyers PT, DPT Please sign and return to therapist. Thank you for your referral.
--- NOTE | 2021-05-03 10:13 | MHC.PT.DC ---
[facility] [place] Office [place] Office [place] Office [address] 140 [facility] [phone] F: [phone] F: [phone] F: [phone] F: [phone] Physical Therapy Discharge Report Diagnosis: LBP pain in L leg pain in L shoulder Date of Surgery: N/A Date of Evaluation: 03/15/21 Date of Discharge: 05/03/21 Treatments to Date: 5 Cancellations to Date: 6 No Shows to Date: 1 Discharge Status: Visit Non-compliance Discharge Summary: The patient has not been seen in this office for approximately one month. Since it has been over 30 days since the patient was last seen he will need a new script if he wishes to return to physical therapy. He is discharged from this physical therapy plan of care in accordance with [facility] attendance policy. Electronically signed by: Sandi Meyers PT, DPT Please sign and return to therapist. Thank you for your referral.
== END 2021-05-03 10:14 | disposition home or self-care (01) ==
LOC: HO.PT 10:00
PROVIDERS: PCP Internal Medicine; Visit Provider Internal Medicine
DX: M54.50 Low back pain, unspecified (principal); M79.605 Pain in left leg; M25.512 Pain in left shoulder
CPT/HCPCS: 97110; 97162; 97530

== ENCOUNTER 2021-04-19 07:52 | Day surgery (SDC) | payer MEDICARE, SELFPAY ==
--- NOTE | 2021-04-18 10:20 | P.CONAN_ITS ---
Documented by User: Aminta Tsang NP 04/18/21 10:21 HPI - Anesthesia Eval Consult details Narrative: 65yo M for Upper Endoscopy and Colonoscopy 02/2021 - Sent to ED by GI provider for low Na (126). Found to have low serum and urine osmo. Given IV NS. Instructed to decrease water intake. Will recheck labs DOS. PMFSH Active Problems Active Problems: All Active Problems (Updated 04/09/21 @ 16:04 by Ollie Ferrari MD) Epididymitis (Acute) Diabetic retinopathy (Acute) Alcohol use disorder (Acute) Hypoglycemia (Acute) Lower back pain (Acute) Left leg pain (Acute) Left shoulder pain (Acute) Prostate cancer screening (Acute) Annual physical exam (Acute) Throat congestion (Acute) Chewing tobacco nicotine dependence (Acute) Tinea unguium (Acute) History of colon polyps (Acute) Nausea and vomiting (Acute) Recurrent cough (Acute) Obesity (BMI 30-39.9) (Acute) Depression (Acute) Anxiety (Acute) Insomnia (Acute) Primary osteoarthritis, left shoulder (Acute) Crohn's disease (Acute) GERD (gastroesophageal reflux disease) (Acute) Pure hypercholesterolemia (Acute) Benign essential hypertension (Acute) Microalbuminuria (Acute) MCFP (current) use of insulin (Acute) Type 2 diabetes mellitus with diabetic polyneuropathy (Acute) Allergic rhinitis (Acute) Past Medical History Medical History Allergic rhinitis Anxiety Benign essential hypertension Crohn's disease Depression GERD (gastroesophageal reflux disease) H/O hyperkalemia 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 Microalbuminuria Obesity (BMI 30-39.9) Primary osteoarthritis, left shoulder Prostate cancer screening Pure hypercholesterolemia Recurrent cough Type 2 diabetes mellitus with diabetic polyneuropathy Family History Family History Father Diabetes Melanoma Mother Diabetes Hypertension Cancer Sister Diabetes Surgical History Surgical History History of esophagogastroduodenoscopy (EGD) History of umbilical hernia repair Hx of colonoscopy Social History Social History Housing: Apartment Alcohol intake: current Alcohol intake frequency: former alcohol drinker Patient Tobacco Use Status: Former Tobacco user Quit Date: 3 months ago Second Hand Smoke Exposure: No Use of substances other than those prescribed or required for medical reasons: No Are you DNR?: No Advance Directives: No Advance Directives Information Provided: Yes service: No Current occupational status: employed Meds Allergies Allergy/AdvReac Type Severity Reaction Status Date / Time sertraline [SERTRALINE] Allergy Severe RASH, ABD Verified 04/19/21 08:18 PAIN DEHYDRATION Penicillins [PENICILLINS] Allergy Intermediate RASH Verified 04/19/21 08:18 Home Medications Medication Instructions Recorded Confirmed Last Taken Type aspirin 81 mg tablet,delayed 81 mg PO DAILY 04/10/20 02/21/21 04/18/21 10:00 History release (Adult Low Dose Aspirin) blood pressure test kit-wrist 02/15/21 Unknown History insulin glargine 100 unit/mL (3 60 unit SUBCUT BEDTIME 02/21/21 02/21/21 Unknown History mL) subcutaneous pen (Lantus Solostar U-100 Insulin) Exam Exam Date and Time: April 18, 2021 1020 Pertinent Lab Results Pertinent Lab Results: Laboratory Tests 03/15/21 10:25 WBC 6.0 Hgb 10.6 L Hct 32.1 L Plt Count 337 D Laboratory Tests 03/15/21 10:35 BUN 23 H Creatinine 1.38 Narrative Narrative: EKG 02/2021 Vent. Rate : 056 BPM ? ? Atrial Rate : 056 BPM ?? P-R Int : 180 ms? QRS Dur : 086 ms ? ? QT Int : 430 ms ? ? ? P-R-T Axes : -02 026 047 degrees ?? QTc Int : 414 ms ? 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 Microalbuminuria Obesity (BMI 30-39.9) Primary osteoarthritis, left shoulder Prostate cancer screening Pure hypercholesterolemia Recurrent cough Type 2 diabetes mellitus with diabetic polyneuropathy Family History Family History Father Diabetes Melanoma Mother Diabetes Hypertension Cancer Sister Diabetes Surgical History Surgical History History of esophagogastroduodenoscopy (EGD) History of umbilical hernia repair Hx of colonoscopy History of Problems with Anesthesia: No Social History Social History Housing: Apartment Alcohol intake: current Alcohol intake frequency: former alcohol drinker Patient Tobacco Use Status: Former Tobacco user Quit Date: 3 months ago Second Hand Smoke Exposure: No Use of substances other than those prescribed or required for medical reasons: No Are you DNR?: No Advance Directives: No Advance Directives Information Provided: Yes service: No Current occupational status: employed Meds Allergies Allergy/AdvReac Type Severity Reaction Status Date / Time sertraline [SERTRALINE] Allergy Severe RASH, ABD Verified 04/19/21 08:18 PAIN DEHYDRATION Penicillins [PENICILLINS] Allergy Intermediate RASH Verified 04/19/21 08:18 Home Medications Medication Instructions Recorded Confirmed Last Taken Type aspirin 81 mg tablet,delayed 81 mg PO DAILY 04/10/20 02/21/21 04/18/21 10:00 History release (Adult Low Dose Aspirin) blood pressure test kit-wrist 02/15/21 Unknown History insulin glargine 100 unit/mL (3 60 unit SUBCUT BEDTIME 02/21/21 02/21/21 Unknown History mL) subcutaneous pen (Lantus Solostar U-100 Insulin) Exam Airway Mallampati Class: III TM Dist: >3cm Neck ROM: Full Partial: Upper Loose/Missing/Broken Teeth: Yes, Upper and Lower Heart: RRR Lungs: CTA Assessment and Plan Assessment Anesthesia Assessment: Anesthesia Plan Discussed Final Anesthetic Review History of Problems with Anesthesia: No NPO: Yes ASA Class: II and III Final Preanesthetic Review: Meds/Allgs Chart Reviewed, Consent Obtained/Reviewed and Anes Risks/Benef Reviewed Patient Risk: Intermediate Procedure Risk: Intermediate Anesthetic Plan Anesthetic Plan: MAC: Disposition: Standard PACU
[2021-04-19 08:33] VITALS: BP 165/69; PULSE 48; RESP 20; TEMP 36.3; O2SAT 97; BMI 31.6
[2021-04-19 08:44] LABS: Glucose, Whole Blood 154 mg/dL (60-115)
[2021-04-19 08:46] LABS: Anion Gap 11 (12-20); Carbon Dioxide 26 mmol/L (22-29); Chloride 104 mmol/L (96-108); Potassium 4.4 mmol/L (3.3-5.1); Sodium 137 mmol/L (135-145)
[2021-04-19] MEDS: Lactated Ringers 1,000 ML 50 ML IVCONT (08:50)
--- NOTE | 2021-04-19 09:26 | MHC.SHP ---
Pre-Procedural Eval Section A Date of Service: 04/19/21 The patient is an INPATIENT: No The History & Physical has been completed within 30 days and I have reviewed it.: No Section B Chief Complaint: screening,reflux disease Details of Present Illness: GERD, decreased appetite, nausea, Crohn's disease Relevant Family History (Specify if Yes): No Relevant Social History: None Present Medications: see Short Stay Collaborative assessment Medical History: Significant History (Allergic rhinitis Anxiety Benign essential hypertension Crohn's disease Depression GERD (gastroesophageal reflux disease) Insomnia [facility] (current) use of insulin Microalbuminuria Obesity (BMI 30-39.9) Primary osteoarthritis, left shoulder Pure hypercholesterolemia Recurrent cough Type 2 diabetes) History of Previous Operations: Relevant previous surgery/procedure and date(s) (History of esophagogastroduodenoscopy (EGD) History of umbilical hernia repair Hx of colonoscopy) Allergies: Allergies Allergy/AdvReac Type Severity Reaction Status Date / Time sertraline [SERTRALINE] Allergy Severe RASH, ABD Verified 04/19/21 08:18 PAIN DEHYDRATION Penicillins [PENICILLINS] Allergy Intermediate RASH Verified 04/19/21 08:18 Review of Systems Sugical H&P ROS: Negative: Constitution, Cardiovascular and Respiratory and Yes, Specify: Gastrointestinal (diarrhea) Exam Surgical H&P Exam: Normal: Heart, Normal: Lungs, Normal: Extremities and Normal: Abdomen Plan Diagnosis/Plan: Unchanged I have reviewed the history and physical and performed a pertinent physical examination on my patient. No changes have occurred unless specified.
--- NOTE | 2021-04-19 09:36 | W.PM.OPN ---
Operative Note Operative Note Date of Service: 04/19/21 Narrative: Pre-op diagnosis:?Crohn's disease, nausea, decreased appetite, abdominal bloating Post-op diagnosis:?other (Gastritis, diverticulosis, hemorrhoids) Procedure:? FLEXIBLE TRANSORAL UPPER GASTROINTESTINAL ENDOSCOPY WITH BIOPSIES AND COLONOSCOPY TILL CECUM WITH BIOPSIES UPPER ENDOSCOPY Consent:?Indications for the procedure and potential complications of bleeding, perforation, reaction to medications and missed diagnosis were discussed with the patient and informed consent was obtained. Instrument:?Olympus GIF H 190 mid size upper endoscope Monitoring: Vital signs and clinical assessment, continuous EKG monitoring, Pulse oximetry, Carbon Dioxide monitoring and blood pressure monitoring were done throughout the procedure. Procedure:?The patient was placed in the left lateral decubitis position and pre-procedure medications were administered and a bite block was placed. The endoscope was inserted into the mouth and advanced under direct vision to the third part of duodenum. A careful inspection was made as the upper endoscope was withdrawn including a retroflexed examination of the proximal stomach; Findings and interventions are described below. Findings: Larynx:? Normal Esophagus: GE junction at 44 cms.? No esophagitis or Infante's. Stomach: Mild gastric erythema. Biopsies were obtained. Grade 2 flap valve on retroflexed examination of the cardia. Duodenum: Normal bulb and descending duodenum.? Biopsies obtained from 3rd part of duodenum to check for UGI Crohn's disease. Intervention:?Biopsies as noted above COLONOSCOPY PROCEDURE NOTE Consent:?Indications for the procedure and potential complications of bleeding, perforation, reaction to medications and missed diagnosis were discussed with the patient and informed consent was obtained. Instrument:?Olympus PCF H 190 L variable stiffness pediatric colonoscope Monitoring:?Vital signs and clinical assessment, intermittent blood pressure monitoring, continuous EKG monitoring, Pulse oximetry and Carbon Dioxide monitoring were done throughout the procedure. Colon withdrawl time was 23 minutes. Procedure:?The patient was placed in the left lateral decubitis position and pre-procedure medications were administered. After a digital rectal examination of the ano-rectum, the video colonoscope was inserted into the rectum and advanced through the colon to the cecum. The colonoscope was slowly withdrawn in a retrograde panoramic fashion and the colon mucosa was carefully examined including a retroflexed view of the rectum. Findings and interventions are described below. Procedure Difficulty:?: Without difficulty Findings: Terminal Ileum: Distal 15 to 20 cms was examined and showed normal mucosa - biopsies were obtained. Cecum:? Inactive colitis - no ulcers or erythema noted Ascending Colon:? Inactive colitis - no ulcers or erythema noted Transverse Colon:? Inactive colitis - no ulcers or erythema noted Descending Colon:? Moderate diverticulosis Sigmoid Colon:? Moderate diverticulosis Rectum:? Normal Ano-rectum:? Moderate internal hemorrhoids Colon preparation:? Good after some irrigation Impression and Post Procedure Diagnosis: Endoscopy Findings: STOMACH: Mild antral gastritis DUODENUM: Biopsies obtained from 3rd part of duodenum to check for UGI Crohn's disease. Colonoscopy Findings: No polyps were detected. Normal TI. Inactive colitis throughout the colon - no ulcers or erythema noted Random biopsies obtained from the TI, right colon, left colon and rectum. Moderate diverticulosis seen in the left colon Moderate hemorrhoids on retroflexed exam. No source found for nausea and decreased appetite. No evidence of active Crohn's disease on colonoscopy today. Of note CRP and fecal calprotectin was normal and MRE did not show evidence of small bowel disease Plan: Await pathology results Patient has an appointment on 05/13/21 in the GI Clinic with Miller Rush M.D.. Repeat Colonoscopy interval based on path results - in 5 years due to hx of Crohn's disease. Above findings were reviewed with the patient and Gastritis and diverticulosis handouts were given in the discharge area. Pt was advised to monitor his symptoms for now (since he has been off medications for Crohn's disease x past 3 months. Surgeon:?Miller Rush MD Anesthesia:?MAC (Slime Ramirez CRNA) Was an Game Breeding [employer] Manager used for this Procedure?:?No Game Breeding Farm Manager:?Sarahi Garcia Estimated blood loss (mL):?0 Pathology:?other (A. small bowel (duodenum) biopsies, R/O upper GI Crohn's? B. gastric antrum, R/O H. pylori? C. T-I biopsies, F/U of Crohn's disease? D. right colon biopsies, F/U of Crohn's disease? E. left colon biopsies) Condition:?stable Disposition:?PACU
[2021-04-19 10:30] VITALS: BP 106/55; PULSE 59; RESP 16; TEMP 36.2; O2SAT 98
[2021-04-19 10:45] VITALS: BP 146/73; PULSE 57; RESP 16; TEMP 36.2; O2SAT 97
== END 2021-04-19 11:30 ==
LOC: HO.SSS 07:52
PROVIDERS: Nurse Practitioner; PCP Internal Medicine; Visit Provider Internal Medicine Gastroenterology
PROC: (CPT 45380; principal; 2021-04-19 09:30)
DX: Z12.11 Encounter for screening for malignant neoplasm of colon (principal); Z86.010 Personal history of colon polyps; K57.30 Diverticulosis of large intestine without perforation or abscess without bleeding; K64.8 Other hemorrhoids; K50.10 Crohn's disease of large intestine without complications; K21.9 Gastro-esophageal reflux disease without esophagitis; K76.0 Fatty (change of) liver, not elsewhere classified; K29.50 Unspecified chronic gastritis without bleeding; I10 Essential (primary) hypertension; J30.9 Allergic rhinitis, unspecified; E66.9 Obesity, unspecified; Z68.33 Body mass index [BMI] 33.0-33.9, adult; E11.42 Type 2 diabetes mellitus with diabetic polyneuropathy; Z79.4 Long term (current) use of insulin; Z79.51 Long term (current) use of inhaled steroids; Z79.82 Long term (current) use of aspirin; Z79.899 Other long term (current) drug therapy; Z88.0 Allergy status to penicillin; Z88.8 Allergy status to other drugs, medicaments and biological substances; Z87.891 Personal history of nicotine dependence
CPT/HCPCS: 45380; 43239; 36415; 80051; 82947; 88305; 88342; J0330; J2405

== ENCOUNTER 2021-05-21 13:10 | Outpatient (REF) | payer MEDICARE, SELFPAY ==
--- NOTE | ~2021-05-21 | US_ITS ---
EXAMINATION: US SCROTUM CLINICAL INFORMATION: Epididymitis. COMPARISON: None TECHNIQUE: A sonogram of the scrotum was performed assessing huffman-scale appearance and color Doppler flow. Spectral Doppler analysis of the arterial and venous flow were performed in the testes bilaterally. FINDINGS: RIGHT: Right testicle measures 4.1 x 2.0 x 3.0 cm, volume 13.1 mL. No focal testicular parenchymal lesions are visualized. Spectral Doppler analysis of the arterial and venous flow is normal in the right testis. Right epididymal head is normal in size. No right hydrocele or varicocele is seen. Right epididymal Doppler flow is normal. LEFT: Left testicle measures 3.4 x 2.1 x 2.9 cm, volume 10.6 mL. No focal testicular parenchymal lesions are visualized. Spectral Doppler analysis of the arterial and venous flow is normal in the left testis. Left epididymal head is normal in size. No left hydrocele or varicocele is seen. Left epididymal Doppler flow is normal. US/US scrotum IMPRESSION: Normal scrotal ultrasound.
== END 2021-05-21 13:11 | disposition home or self-care (01) ==
LOC: HO.US 13:10
PROVIDERS: PCP Internal Medicine; Visit Provider Internal Medicine
DX: N45.1 Epididymitis (principal)
CPT/HCPCS: 76870

== ENCOUNTER 2021-10-14 15:26 | Outpatient (REF) | payer MEDICARE, SELFPAY ==
[2021-10-14 15:44] LABS: MANUAL DIFF FLAG NO
[2021-10-14 16:05] LABS: Basophils Absolute Auto 0.1 X10*3/uL (0.0-0.2); Eosinophils Absolute Auto 0.1 X10*3/uL (0.0-0.4); Eosinophils Percent Auto 1.1 % (0-4); Hematocrit 35.6 % (42.0-52.0); Hemoglobin 12.2 g/dl (14.0-18.0); Imm Gran Abs Auto 0.02 X10*3/uL (0.00-0.03); Imm Gran Pct Auto 0.3 % (0.0-0.4); Lymphocytes Absolute Auto 1.8 X10*3/uL (1.2-4.9); Mean Corpuscular HGB Conc 34.3 g/dl (31.0-36.0); Mean Corpuscular Volume 93.4 fL (80.0-98.0); Mean Platelet Volume 11.5 fL (9.4-12.4); Monocytes Absolute Auto 0.5 X10*3/uL (0.1-1.2); Monocytes Percent Auto 7.4 % (2-11); Neutrophils Absolute Auto 3.9 x10*3/uL (2.0-8.3); Neutrophils Percent Auto 62.2 % (45-73); Platelet Count 328 X10*3/uL (160-400); Red Blood Count 3.81 X10*6/uL (4.60-5.80); Red Cell Distribution Width 12.5 % (11.0-16.0); White Blood Count 6.3 X10*3/uL (4.8-10.8)
[2021-10-14 16:14] LABS: Estimated Average Glucose 131 mg/dL; Hemoglobin A1c % 6.2 %
[2021-10-14 16:25] LABS: Alanine Aminotransferase 20 U/L (0-40); Albumin Level 4.6 g/dL (3.5-5.0); Alkaline Phosphatase 77 U/L (39-117); Anion Gap 14 (12-20); Aspartate Amino Transferase 18 U/L (5-37); Bilirubin Total 1.4 mg/dL (0.0-1.0); Blood Urea Nitrogen 23 mg/dL (9-16); Carbon Dioxide 22 mmol/L (22-29); Chloride 102 mmol/L (96-108); Cholesterol 230 mg/dL; Estimated Glomerular Filt Rate 45; Glucose Fasting 154 mg/dL (60-99); HDL Cholesterol 33 mg/dL; LDL Cholesterol Calculated 139 mg/dl; Potassium 5.3 mmol/L (3.3-5.1); Sodium 133 mmol/L (135-145); Total Protein 7.3 g/dL (6.5-8.0); Triglycerides 293 mg/dL
[2021-10-14 16:34] LABS: Appearance Urine CLEAR; Color Urine YELLOW; Glucose Urine UA NEG (NEG); Leukocyte Esterase Urine NEG (NEG); Nitrite Urine NEG (NEG); PH 5.5 (5.0-8.0); Specific Gravity - Urine >= 1.030 (1.005-1.025); UACC Culture Trigger NO; Urine Blood NEG (NEG); Urine Ketones NEG (NEG); Urine Protein 2+ MG/DL (NEG-TRACE)
[2021-10-14 16:48] LABS: TSH reflex Free T4 0.81 uIU/mL (0.32-4.0); Vitamin D 25-OH Total 19.1 ng/mL (>30)
[2021-10-14 16:54] LABS: Mucus Urine 2+ /LPF; Renal Epithelial Cells Urine TRACE /LPF; Squamous Epithelial Cell Urine TRACE /LPF; WBC Urine 0-2 /HPF (0-4)
[2021-10-14 16:58] LABS: Creatinine Urine 184.26 mg/dL
[2021-10-14 17:19] LABS: Microalbum/Creatinine Ratio Ur 330.5 ug/mg cr
== END 2021-10-14 15:27 | disposition home or self-care (01) ==
LOC: HO.LAB 15:26
PROVIDERS: PCP Internal Medicine; Visit Provider Internal Medicine
DX: E11.9 Type 2 diabetes mellitus without complications (principal); E55.9 Vitamin D deficiency, unspecified; I10 Essential (primary) hypertension; E78.00 Pure hypercholesterolemia, unspecified
CPT/HCPCS: 36415; 80053; 80061; 81001; 82043; 82306; 83036; 84443; 85025

== ENCOUNTER 2021-11-04 08:18 | Outpatient (REF) | payer MEDICARE, SELFPAY ==
--- NOTE | ~2021-11-04 | CT_ITS ---
EXAMINATION: CT HEAD WITHOUT CONTRAST CLINICAL INFORMATION: Indication COMPARISON: None TECHNIQUE: Contiguous axial imaging was performed from the skull base to vertex without intravenous administration of contrast. This CT examination was performed using dose optimization techniques as appropriate, variously including the following: *Automated exposure control *Adjustment of mA and/or kV according to patient size (this includes techniques or standardized protocols for targeted exams where dose is matched to indication/reason for exam; i.e. extremities or head) *Use of iterative reconstruction technique DLP: 850 mGy-cm FINDINGS: There is no evidence of acute intracranial hemorrhage or territorial infarction. No abnormal mass effect or midline shift is seen. There is mild nonspecific periventricular white matter disease. No extra-axial fluid collections are identified. The ventricles are normal in size. There is no abnormal attenuation within the brain parenchyma. The osseous structures and soft tissues are normal. The mastoid air cells and visualized portions of the paranasal sinuses are well aerated. CT/CT head/brain wo con IMPRESSION: Unremarkable exam.
== END 2021-11-04 08:19 | disposition home or self-care (01) ==
LOC: HO.CT 08:18
PROVIDERS: Visit Provider Internal Medicine
DX: R41.3 Other amnesia (principal)
CPT/HCPCS: 70450

== ENCOUNTER → 2022-03-03 13:47 | Outpatient (REF) | payer MEDICARE, SELFPAY | LOC: HO.SL 13:47 | PROVIDERS: Visit Provider Psychiatry & Neurology Neurology | DX: G47.33 Obstructive sleep apnea (adult) (pediatric) (principal) | CPT/HCPCS: 95806 ==

== ENCOUNTER 2022-03-25 11:21 | Outpatient (REF) | payer MEDICARE, SELFPAY ==
[2022-03-25 13:50] LABS: Appearance Urine Clear; Color Urine Yellow; Glucose Urine UA 250 mg/dL (Negative); Leukocyte Esterase Urine Negative (Negative); Nitrite Urine Negative (Negative); PH 5.5 (5.0-9.0); Specific Gravity - Urine 1.015 (1.005-1.025); UMIC TRIGGER UA YES; Urine Blood Negative (Negative); Urine Ketones Negative (Negative); Urine Protein 100 (2+) mg/dL (Neg-Trace)
[2022-03-25 13:54] LABS: Hematocrit 33.1 % (42.0-52.0); Hemoglobin 11.3 g/dl (14.0-18.0); Mean Corpuscular HGB Conc 34.1 g/dl (31.0-36.0); Mean Corpuscular Hemoglobin 30.9 pg (27.0-33.0); Mean Corpuscular Volume 90.4 fL (80.0-98.0); Mean Platelet Volume 11.4 fL (9.4-12.4); Platelet Count 287 X10*3/uL (160-400); Red Blood Count 3.66 X10*6/uL (4.60-5.80); Red Cell Distribution Width 12.6 % (11.0-16.0); White Blood Count 6.2 X10*3/uL (4.8-10.8)
[2022-03-25 13:55] LABS: Bacteria Urine None Seen (None Seen); Hyaline Casts Urine 0-2 /LPF (0-2); RBC Urine 0-2 /HPF (0-2); Squamous Epithelial Cell Urine 0-2 /HPF (0-2); WBC Urine 0-5 /HPF (0-5)
[2022-03-25 14:27] LABS: Creatinine Urine 134.17 mg/dL; Microalbum/Creatinine Ratio Ur 359.9 ug/mg cr; Protein/Creatinine Ratio, Ur 0.48 (<0.2); Total Protein Urine Random 64 mg/dL (<12)
[2022-03-25 14:28] LABS: Albumin Level 4.2 g/dL (3.5-5.0); Anion Gap 16 (12-20); Blood Urea Nitrogen 22 mg/dL (9-16); Calcium 8.9 mg/dL (8.4-10.2); Carbon Dioxide 21 mmol/L (22-29); Chloride 99 mmol/L (96-108); Estimated Glomerular Filt Rate 40; Magnesium 1.8 mg/dL (1.6-2.6); Phosphorus 3.5 mg/dL (2.7-4.5); Potassium 4.8 mmol/L (3.3-5.1); Sodium 131 mmol/L (135-145)
[2022-03-26 04:48] LABS: HBS Num1 11.79 mIU/mL (0-7.99); HBc Num1 0.08 S/CO (0.00-0.79); HBsAGNum1 0.16 S/CO (0.00-0.99); Hepatitis B Core Antibody Nonreactive (Nonreactive); Hepatitis B Surface Antigen Negative (Negative); ~HepC Num1 0.05 S/CO (0.00-0.79); ~Hepatitis C Antibody Nonreactive (Nonreactive)
[2022-03-26 10:57] LABS: Complement C3 127 mg/dL (82-185)
[2022-03-26 11:32] LABS: Calcium (PTHI) 9.1 mg/dL (8.6-10.3); PTHI 91 pg/mL (16-77)
[2022-03-27 10:51] LABS: HBS Num3 12.05 mIU/mL (0-7.99); ~Hepatitis B Surface Antibody GRAYZONE (Nonreactive)
[2022-03-27 12:37] LABS: Anti Nuclear Antibody Screen NEGATIVE (NEGATIVE)
[2022-03-27 22:32] LABS: Prot Elec - Albumin 4.1 g/dL (3.8-4.8); Prot Elec - Alpha1 0.3 g/dL (0.2-0.3); Prot Elec - Alpha2 0.8 g/dL (0.5-0.9); Prot Elec - Beta 1 0.4 g/dL (0.4-0.6); Prot Elec - Beta 2 0.3 g/dL (0.2-0.5); Prot Elec - Gamma 0.7 g/dL (0.8-1.7); Prot Elec - Total Protein 6.5 g/dL (6.1-8.1)
[2022-04-02 15:07] LABS: Kappa, Serum 176 mg/dL (176-443); Kappa/Lambda Ratio, Serum 1.83 (1.29-2.55); Lambda, Serum 96 mg/dL (91-240)
== END 2022-03-25 11:22 | disposition home or self-care (01) ==
LOC: HO.10HDL 11:21
PROVIDERS: Visit Provider Internal Medicine Nephrology
DX: R80.1 Persistent proteinuria, unspecified (principal); E11.22 Type 2 diabetes mellitus with diabetic chronic kidney disease; N18.31 Chronic kidney disease, stage 3a
CPT/HCPCS: 36415; 80051; 81001; 82040; 82043; 82310; 82565; 83735; 83883; 83970; 84100; 84156; 84165; 84520; 85027; 86038; 86039; 86160; 86704; 86706; 86803; 87086; 87340

== ENCOUNTER 2022-05-02 01:38 | Emergency (ER) | payer MEDICARE, SELFPAY ==
--- NOTE | ~2022-05-02 | CT_ITS ---
EXAMINATION: CT ABDOMEN AND PELVIS WITHOUT CONTRAST CLINICAL INFORMATION: diffuse abd pain with hx of Crohn's disease COMPARISON: MRI dated 02/14/[address] dated 10/05/2009 TECHNIQUE: Multidetector volumetric imaging was performed from the superior aspect of the liver through the pubic symphysis. Sagittal and coronal reformatted images were obtained on the technologist's workstation. This CT examination was performed using dose optimization techniques as appropriate, variously including the following: *Automated exposure control *Adjustment of mA and/or kV according to patient size (this includes techniques or standardized protocols for targeted exams where dose is matched to indication/reason for exam; i.e. extremities or head) *Use of iterative reconstruction technique DLP: 835 mGy-cm FINDINGS: LUNG BASES: Small foci of calcific atherosclerosis in the coronary arteries. Lung bases are clear. LIVER, GALLBLADDER, AND BILIARY TREE: The liver is normal in size, shape, and attenuation. No focal hepatic lesion or biliary ductal dilatation is present. The gallbladder is unremarkable with no evidence of radiopaque gallstones, gallbladder wall thickening, or obvious pericholecystic inflammatory changes. PANCREAS: Unremarkable. SPLEEN: Unremarkable. ADRENAL GLANDS: Unremarkable. KIDNEYS AND URETERS: The kidneys are normal in size, shape, and attenuation. No hydronephrosis, hydroureter, or calculi seen. Bilateral perinephric stranding. BLADDER: No wall thickening or surrounding fat stranding. No calculi. GASTROINTESTINAL TRACT: Stomach, small bowel, and colon are normal in caliber. No bowel wall thickening or surrounding inflammatory changes. Appendix is normal. No intraperitoneal free fluid or free air. Moderate volume of stool throughout the colon. Mild diverticulosis. ABDOMINAL WALL: No significant hernia is appreciated. LYMPH NODES: Normal. VASCULAR: Atherosclerotic calcifications are present in the abdominal aorta and iliac arteries. No aneurysmal dilatation. PELVIC VISCERA: Prostate gland is mildly enlarged, measuring 5.2 cm transverse. OSSEOUS STRUCTURES: Diffuse idiopathic skeletal hyperostosis is evident in the thoracic spine with large bridging osteophytes. Lumbar spine appears relatively well-preserved by comparison. Mild osteoarthritis in the hips. There is ankylosis of the right SI joint. CT/CT abdomen pelvis wo IV con IMPRESSION: 1. No acute intra-abdominal or intrapelvic abnormalities. No evidence of active Crohn's disease. 2. Moderate volume of stool throughout the colon. 3. Mild colonic diverticulosis without evidence of acute diverticulitis. 4. Mild prostatomegaly. Fleischner guidelines were followed.
--- NOTE | ~2022-05-02 | XR_ITS ---
EXAMINATION: XR CHEST CLINICAL INFORMATION: Chest pain. COMPARISON: 06/12/[address] dated 10/02/2009 TECHNIQUE: Frontal view of the chest was obtained. FINDINGS: Lungs are clear. No consolidation, pneumothorax, or pleural effusion. Cardiac silhouette is borderline enlarged, unchanged. Mediastinal contour is normal. Pulmonary vasculature is unremarkable. No acute osseous findings. Osteoarthritis in the acromioclavicular and glenohumeral joints is mild. Mild degenerative spondylosis in the thoracic spine. XR/XR chest 1V IMPRESSION: No acute pulmonary findings.
[2022-05-02 01:48] VITALS: BP 192/97; BP 222/109; PULSE 74; RESP 20; O2SAT 95; BMI 31.6
--- NOTE | 2022-05-02 01:52 | ECG_ITS ---
Test Reason : HTN Blood Pressure : / mmHG Vent. Rate : 073 BPM Atrial Rate : 073 BPM P-R Int : 180 ms QRS Dur : 090 ms QT Int : 404 ms P-R-T Axes : 023 026 058 degrees QTc Int : 445 ms Normal sinus rhythm Normal ECG When compared with ECG of 14-FEB-2021 19:05, No significant change was found Referred By: Generic ED Physician Electronically Signed By:VALDEMAR LANDRY MD
[2022-05-02 02:03] LABS: MANUAL DIFF FLAG NO
[2022-05-02 02:04] LABS: Basophils Absolute Auto 0.1 X10*3/uL (0.0-0.2); Basophils Percent Auto 0.7 % (0-2); Eosinophils Absolute Auto 0.2 X10*3/uL (0.0-0.4); Eosinophils Percent Auto 2.8 % (0-4); Hematocrit 30.7 % (42.0-52.0); Hemoglobin 10.5 g/dl (14.0-18.0); Imm Gran Abs Auto 0.03 X10*3/uL (0.00-0.03); Imm Gran Pct Auto 0.4 % (0.0-0.4); Lymphocytes Absolute Auto 2.5 X10*3/uL (1.2-4.9); Lymphocytes Percent Auto 35.7 % (20-40); Mean Corpuscular HGB Conc 34.2 g/dl (31.0-36.0); Mean Corpuscular Hemoglobin 30.9 pg (27.0-33.0); Mean Corpuscular Volume 90.3 fL (80.0-98.0); Mean Platelet Volume 10.5 fL (9.4-12.4); Monocytes Absolute Auto 0.5 X10*3/uL (0.1-1.2); Monocytes Percent Auto 7.8 % (2-11); Neutrophils Absolute Auto 3.6 x10*3/uL (2.0-8.3); Neutrophils Percent Auto 52.6 % (45-73); Platelet Count 320 X10*3/uL (160-400); Red Cell Distribution Width 12.3 % (11.0-16.0); White Blood Count 6.9 X10*3/uL (4.8-10.8)
[2022-05-02 02:22] LABS: Troponin-I High Sensitivity 6.2 ng/L (<3.5-35.0)
[2022-05-02 02:26] LABS: Anion Gap 11 (12-20); Blood Urea Nitrogen 20 mg/dL (9-16); Calcium 8.9 mg/dL (8.4-10.2); Carbon Dioxide 23 mmol/L (22-29); Chloride 101 mmol/L (96-108); Creatinine Clr Calc Pharmacy 61.8; Estimated Glomerular Filt Rate 47; Glucose Random 298 mg/dL (60-115); Potassium 4.4 mmol/L (3.3-5.1); Sodium 131 mmol/L (135-145)
--- NOTE | 2022-05-02 02:37 | ED.CHESTPAIN ---
HPI - Chest Pain General Chief Complaint: Chest Pain Stated Complaint: CP/SOB/Detoxing from alcohol for 3 weeks Time Seen by Provider: 05/02/22 02:21 Source: patient Mode of arrival: EMS Limitations: no limitations History of Present Illness HPI narrative: Patient history of of obstructive sleep apnea , alcoholism detoxing for last 3 weeks, hypertension obese, Crohn's disease in remission, constipation comes here for lower mid chest pain since 01:00. Patient was trying to sleep noticed sharp pain and mid lower chest radiating to the back associated with slight shortness of breath no nausea no vomiting no diarrhea patient been constipated for some time feel abdominal bloated and diffuse discomfort no blood in the stool patient missed his atenolol for last 3 days blood pressure on arrival was 222/109. Patient feels anxious but everything started after patient had pain never had any coronary artery disease had a stress test few years ago was negative Related Data Home Medications Medication Instructions Recorded Confirmed aspirin 81 mg tablet,delayed 81 mg PO DAILY 04/10/20 03/16/22 release (Adult Low Dose Aspirin) blood pressure test kit-wrist 02/15/21 03/16/22 Previous Rx's Medication Instructions Recorded nystatin 100,000 unit/gram topical 1 appl topical DAILY 15 days #30 03/07/21 cream grams blood sugar diagnostic (OneTouch #100 ea 03/29/21 Verio test strips) atenolol 50 mg tablet 50 mg PO DAILY #30 tabs 05/19/21 omeprazole 40 mg capsule,delayed 40 mg PO BID #180 caps 02/03/22 release insulin glargine 100 unit/mL (3 60 unit (0.6 mL) subcut DAILY #15 02/10/22 mL) subcutaneous pen (Lantus mL Solostar U-100 Insulin) irbesartan 300 mg tablet 300 mg PO DAILY #90 caps 02/10/22 metformin 1,000 mg tablet 1,000 mg PO BID #60 tabs 02/10/22 pen needle, diabetic 31 gauge x 1 ea miscellaneous BID 60 30 days 02/27/22 5/16 (Easy Touch) #60 ea ciprofloxacin 0.3 %-dexamethasone 4 drp otic (ears) BID 7 days #7.5 03/04/22 0.1 % ear drops,suspension mL (Ciprodex) fluoxetine 20 mg capsule 60 mg PO DAILY 30 days #90 caps 03/14/22 levofloxacin 500 mg tablet 500 mg PO DAILY 7 days #7 tabs 03/14/22 fluoxetine 40 mg capsule 40 mg PO QAM 90 days #90 caps 04/02/22 sennosides 8.6 mg capsule (senna) 8.6 mg PO DAILY PRN constipation 04/10/22 30 days #30 caps fluticasone propionate 50 1 spray intranasal DAILY #48 grams 04/12/22 mcg/actuation nasal spray,suspension mirtazapine 15 mg tablet 15 mg PO BEDTIME 90 days #90 tabs 04/14/22 cyanocobalamin (vitamin B-12) 1,000 mcg PO DAILY 30 days #30 tabs 04/21/22 1,000 mcg tablet magnesium oxide 420 mg tablet 420 mg PO DAILY 30 days #30 tabs 04/21/22 pyridoxine (vitamin B6) 50 mg 50 mg PO DAILY 30 days #30 tabs 04/21/22 tablet thiamine HCl (vitamin B1) 100 mg 100 mg PO DAILY 30 days #30 tabs 04/21/22 tablet cetirizine 10 mg capsule (Zyrtec) 10 mg PO DAILY PRN allergy 04/23/22 symptoms 90 days #90 caps atenolol 50 mg tablet 50 mg PO DAILY #30 tabs 05/02/22 insulin lispro 100 unit/mL 1 sliding scale dose subcut 05/02/22 subcutaneous pen (Humalog KwikPen USEASDIRECTD #15 mL (U-100) Insulin) polyethylene glycol 3350 17 17 g PO DAILY #510 grams 05/02/22 gram/dose oral powder (Miralax) Allergies Allergy/AdvReac Type Severity Reaction Status Date / Time sertraline [SERTRALINE] Allergy Severe RASH, ABD Verified 03/16/22 13:52 PAIN DEHYDRATION Penicillins [PENICILLINS] Allergy Intermediate RASH Verified 03/16/22 13:52 Review of Systems Review of Systems: Yes all other systems are reviewed and are negative PMFSH Past Medical History Medical History Allergic rhinitis Anxiety Benign essential hypertension Chronic kidney disease (CKD), stage III (moderate) Crohn's disease Depression Environmental allergies GERD (gastroesophageal reflux disease) H/O hyperkalemia Insomnia [facility] (current) use of insulin Memory impairment Microalbuminuria Obesity (BMI 30-39.9) Obstructive sleep apnea Primary osteoarthritis, left shoulder Prostate cancer screening Pure hypercholesterolemia Recurrent cough Type 2 diabetes mellitus with diabetic polyneuropathy Surgical History History of esophagogastroduodenoscopy (EGD) History of umbilical hernia repair Hx of colonoscopy Family History Family History Father Diabetes Melanoma Mother Diabetes Hypertension Cancer Sister Diabetes Social History Social History Housing: Apartment Alcohol intake: former Patient Tobacco Use Status: Former Tobacco user Quit Date: 3 months ago Smoked in Last 30 Days: No Second Hand Smoke Exposure: No Use of substances other than those prescribed or required for medical reasons: No Advance Directives: No Advance Directives Information Provided: Yes service: No Current occupational status: employed Cognitive needs: No Hearing needs: No Vision needs: No Physical Exam Vital Signs: Vital Signs: Last Vital Signs Temp 97.6 F 05/02/22 06:29 Pulse 63 05/02/22 06:40 Resp 16 05/02/22 06:29 BP 171/92 H 05/02/22 06:29 Pulse Ox 96 05/02/22 06:29 O2 Del Method 05/02/22 06:29 BMI result Body Mass Index 31.6 Appearance: Alert. Oriented X3. No acute distress. Eyes: PERRLA, No Nystagmus ENT: Pharynx normal. Oral Mucosa moist Neck: Normal inspection. Neck supple. CVS: Normal heart rate and rhythm. Pulses normal. Respiratory: No respiratory distress. Equal air entry bilateral, no wheezing/rales/rhonchi Abdomen: Soft , diffuse abdominal tenderness, tenderness and epigastric area no rebound tenderness or guarding Bowel sounds are present, no mass palpable, no CVA tenderness Skin: Skin warm and dry. Normal skin color. Normal skin turgor. Extremities: No lower extremity edema. No calf tenderness Neuro: Oriented X 3. No motor deficit. No sensory deficit.No cerebellar signs , cranial nerves II-XII intact Medications Administered Discontinued Medications Generic Name Dose Route Start Last Admin Trade Name Freq PRN Reason Stop Dose Admin Famotidine 20 mg 05/02/22 02:54 05/02/22 03:15 Famotidine/Pf 20 Mg/2 Ml Vial IVPUSH 05/02/22 02:55 20 mg ONCE ONE Administration Sodium Chloride 1,000 mls @ 999 mls/hr 05/02/22 02:55 05/02/22 04:27 Ns IV 05/02/22 03:55 Infused .Q1H1M ONE Infusion Labetalol HCl 20 mg 05/02/22 03:09 05/02/22 03:15 Labetalol Hcl 100 Mg/20 Ml Vial IVPUSH 05/02/22 03:10 20 mg ONCE ONE Administration Magnesium Hydroxide 30 ml 05/02/22 06:25 05/02/22 06:40 Milk Of Magnesia 30 Ml Oral.Susp PO 05/02/22 06:26 30 ml ONCE ONE Administration Morphine Sulfate 2 mg 05/02/22 05:09 05/02/22 05:14 Morphine Sulfate 2 Mg/Ml Cartridge IVPUSH 05/02/22 05:10 2 mg ONCE ONE Administration Protocol MDM - Chest Pain MDM Narrative Medical decision making narrative: Bill atypical chest pain initial EKG negative troponin negative noticed to have slightly elevated blood pressure patient been constipated CT scan showed moderate amount of stool no acute pathology will repeat troponin plan to discharge home if 2nd troponin does not show any delta elevation for uncontrolled diabetes will start patient Humalog before meals advised to follow-up with mud worker will stop metformin 645 am delta troponin negative will discharge patient home patient is chest pain-free Differential Diagnosis Differential diagnosis: Likely atypical chest pain, chest pain and biliary colic Lab Data Attestation: I reviewed the patient's lab results. Result diagrams: 05/02/22 01:59 05/02/22 01:59 Labs: Lab Results 05/02/22 05/02/22 05/02/22 Range/Units 01:59 01:59 01:59 WBC 6.9 (4.8-10.8) X10*3/uL RBC 3.40 L (4.60-5.80) X10*6/uL Hgb 10.5 L (14.0-18.0) g/dl Hct 30.7 L (42.0-52.0) % MCV 90.3 (80.0-98.0) fL MCH 30.9 (27.0-33.0) pg MCHC 34.2 (31.0-36.0) g/dl RDW 12.3 (11.0-16.0) % Plt Count 320 (160-400) X10*3/uL MPV 10.5 (9.4-12.4) fL Immature Gran % (Auto) 0.4 (0.0-0.4) % Neut % (Auto) 52.6 (45-73) % Lymph % (Auto) 35.7 (20-40) % [place] % (Auto) 7.8 (2-11) % Eos % (Auto) 2.8 (0-4) % Baso % (Auto) 0.7 (0-2) % Lymph # (Auto) 2.5 (1.2-4.9) X10*3/uL [place] # (Auto) 0.5 (0.1-1.2) X10*3/uL Eos # (Auto) 0.2 (0.0-0.4) X10*3/uL Baso # (Auto) 0.1 (0.0-0.2) X10*3/uL Abs Immat Gran (auto) 0.03 (0.00-0.03) X10*3/uL Absolute Neuts (auto) 3.6 (2.0-8.3) x10*3/uL Absolute Nucleated RBC 0.000 (0.0-0.012) X10*3/uL Nucleated RBC % (auto) 0.0 (0.0-0.2) /100WBC Sodium 131 L (135-145) mmol/L Potassium 4.4 (3.3-5.1) mmol/L Chloride 101 (96-108) mmol/L Carbon Dioxide 23 (22-29) mmol/L Anion Gap 11 L (12-20) BUN 20 H (9-16) mg/dL Creatinine 1.50 H (0.5-1.4) mg/dL Estim Creat Clear Calc 61.8 Estimated GFR 47 POC Glucose (60-115) mg/dL Random Glucose 298 H (60-115) mg/dL Calcium 8.9 (8.4-10.2) mg/dL Total Bilirubin 0.3 (0.0-1.0) mg/dL Direct Bilirubin < 0.2 (0.0-0.5) mg/dL AST 16 (5-37) U/L ALT 19 (0-40) U/L Alkaline Phosphatase 64 (39-117) U/L Troponin I High Sens 6.2 (<3.5-35.0) ng/L Total Protein 6.2 L (6.5-8.0) g/dL Albumin 3.9 (3.5-5.0) g/dL Lipase 57 (8-78) U/L 05/02/22 05/02/22 Range/Units 06:12 06:20 WBC (4.8-10.8) X10*3/uL RBC (4.60-5.80) X10*6/uL Hgb (14.0-18.0) g/dl Hct (42.0-52.0) % MCV (80.0-98.0) fL MCH (27.0-33.0) pg MCHC (31.0-36.0) g/dl RDW (11.0-16.0) % Plt Count (160-400) X10*3/uL MPV (9.4-12.4) fL Immature Gran % (Auto) (0.0-0.4) % Neut % (Auto) (45-73) % Lymph % (Auto) (20-40) % [place] % (Auto) (2-11) % Eos % (Auto) (0-4) % Baso % (Auto) (0-2) % Lymph # (Auto) (1.2-4.9) X10*3/uL [place] # (Auto) (0.1-1.2) X10*3/uL Eos # (Auto) (0.0-0.4) X10*3/uL Baso # (Auto) (0.0-0.2) X10*3/uL Abs Immat Gran (auto) (0.00-0.03) X10*3/uL Absolute Neuts (auto) (2.0-8.3) x10*3/uL Absolute Nucleated RBC (0.0-0.012) X10*3/uL Nucleated RBC % (auto) (0.0-0.2) /100WBC Sodium (135-145) mmol/L Potassium (3.3-5.1) mmol/L Chloride (96-108) mmol/L Carbon Dioxide (22-29) mmol/L Anion Gap (12-20) BUN (9-16) mg/dL Creatinine (0.5-1.4) mg/dL Estim Creat Clear Calc Estimated GFR POC Glucose 175 H (60-115) mg/dL Random Glucose (60-115) mg/dL Calcium (8.4-10.2) mg/dL Total Bilirubin (0.0-1.0) mg/dL Direct Bilirubin (0.0-0.5) mg/dL AST (5-37) U/L ALT (0-40) U/L Alkaline Phosphatase (39-117) U/L Troponin I High Sens 6.1 (<3.5-35.0) ng/L Total Protein (6.5-8.0) g/dL Albumin (3.5-5.0) g/dL Lipase (8-78) U/L ECG Data ECG #1: Attestation: I personally reviewed and interpreted this ECG as follows: Interpretation: Normal sinus rhythm heart rate 73 beats per minute normal intervals normal axis no acute ST-T changes impression normal EKG Discharge Plan Discharge Clinical Impression: Chest pain, Constipation, Hyperglycemia due to diabetes mellitus, Hypertelorism Patient Disposition: Home, Self-Care Instructions: Chest Pain (ED), Constipation (ED), Type 2 Diabetes in the Older Adult (ED) Additional Instructions: Stop taking metformin Continue your Lantus insulin and start on Humalog insulin 3 times a day before meals according to sliding scale Blood glucose: less than 150 : 0 unit 151-200: 2 units 201-250 : 4 units 251-300; 6 units 301-351 :: 8 units above 351 : call MD or come to ED Take your blood pressure medicine daily Follow-up with mud worker Prescriptions: New polyethylene glycol 3350 [Miralax] 17 gram/dose powder 17 g PO DAILY Qty: 510 0RF insulin lispro [Humalog KwikPen Insulin] 100 unit/mL insulin pen 1 sliding scale dose subcut USEASDIRECTD Qty: 15 3RF Rx Instructions: Insulin as advised before meals 0-150: 0 unit 151-200: 2 units 201-250: 4 units 251-300: 6 units 301-350: 8 units >351 nasra atenolol 50 mg tablet 50 mg PO DAILY Qty: 30 2RF No Action (DME) blood pressure test kit-wrist Kit See Rx Instructions .Route Rx Instructions: As directed nystatin 100,000 unit/gram cream 1 appl topical DAILY 15 Days Qty: 30 0RF (DME) OneTouch Verio test strips Strip See Rx Instructions .Route Qty: 100 12RF Rx Instructions: As directed- in vitro 3 times a day atenolol 50 mg tablet 50 mg PO DAILY Qty: 30 3RF omeprazole 40 mg capsule,delayed release(DR/EC) 40 mg PO BID Qty: 180 0RF irbesartan 300 mg tablet 300 mg PO DAILY Qty: 90 1RF metformin 1,000 mg tablet 1,000 mg PO BID Qty: 60 3RF insulin glargine [Lantus Solostar U-100 Insulin] 100 unit/mL (3 mL) insulin pen 60 unit subcut DAILY Qty: 15 1RF pen needle, diabetic [Easy Touch] 31 gauge x 5/16 needle 1 ea miscellaneous BID 30 Days Qty: 60 3RF fluoxetine 40 mg capsule 40 mg PO QAM 90 Days Qty: 90 1RF senna 8.6 mg capsule 8.6 mg PO DAILY PRN (Reason: constipation) 30 Days Qty: 30 1RF fluticasone propionate 50 mcg/actuation spray,suspension 1 spray intranasal DAILY Qty: 48 0RF mirtazapine 15 mg tablet 15 mg PO BEDTIME 90 Days Qty: 90 1RF thiamine HCl (vitamin B1) 100 mg tablet 100 mg PO DAILY 30 Days Qty: 30 5RF pyridoxine (vitamin B6) 50 mg tablet 50 mg PO DAILY 30 Days Qty: 30 5RF cyanocobalamin (vitamin B-12) 1,000 mcg tablet 1,000 mcg PO DAILY 30 Days Qty: 30 5RF magnesium oxide 420 mg tablet 420 mg PO DAILY 30 Days Qty: 30 5RF Zyrtec 10 mg capsule 10 mg PO DAILY PRN (Reason: allergy symptoms) 90 Days Qty: 90 3RF aspirin [Adult Low Dose Aspirin] 81 mg tablet,delayed release (DR/EC) 81 mg PO DAILY ciprofloxacin-dexamethasone [Ciprodex] 0.3-0.1 % drops,suspension 4 drp otic (ears) BID 7 Days Qty: 7.5 0RF levofloxacin 500 mg tablet 500 mg PO DAILY 7 Days Qty: 7 0RF fluoxetine 20 mg capsule 60 mg PO DAILY 30 Days Qty: 90 3RF Referrals: Lionel Cisse MD [Physician] - 1 week
[2022-05-02 03:15] LABS: Alanine Aminotransferase 19 U/L (0-40); Albumin Level 3.9 g/dL (3.5-5.0); Alkaline Phosphatase 64 U/L (39-117); Aspartate Amino Transferase 16 U/L (5-37); Bilirubin Direct < 0.2 mg/dL (0.0-0.5); Bilirubin Total 0.3 mg/dL (0.0-1.0); Total Protein 6.2 g/dL (6.5-8.0)
[2022-05-02] MEDS: Famotidine/PF 20 MG/2 ML VIAL IVPUSH (03:15)
[2022-05-02] MEDS: Labetalol HCL 100 MG/20 ML VIAL 20 MG IVPUSH (03:15)
[2022-05-02] MEDS: 0.9 % Sodium Chloride 1,000 ML 999 ML IV (03:15)
[2022-05-02 03:17] LABS: Lipase 57 U/L (8-78)
[2022-05-02 03:19] VITALS: BP 156/76; PULSE 61; RESP 16; TEMP 36.6; O2SAT 96
--- NOTE | 2022-05-02 04:14 | PC.NURSE ---
Patient states that chest and back pain is intermittent. Back pain worsens with movement. Patient denies n/v. Pt states he has a headache.
[2022-05-02 05:05] VITALS: BP 154/89; PULSE 69; RESP 20; TEMP 36.1; O2SAT 96
[2022-05-02] MEDS: Morphine Sulfate 2 MG/ML CARTRIDGE IVPUSH (05:14)
[2022-05-02 05:17] VITALS: BP 139/85; PULSE 65; RESP 19
[2022-05-02 06:26] LABS: Glucose, Whole Blood 175 mg/dL (60-115)
[2022-05-02 06:29] VITALS: BP 171/92; PULSE 66; RESP 16; TEMP 36.4; O2SAT 96
[2022-05-02 06:36] LABS: Troponin-I High Sensitivity 6.1 ng/L (<3.5-35.0)
[2022-05-02 06:40] VITALS: PULSE 63
[2022-05-02] MEDS: Milk of Magnesia 30 ML ORAL.SUSP PO (06:40)
== END 2022-05-02 07:00 | disposition home or self-care (01) ==
PROVIDERS: Emergency Provider Internal Medicine; PCP Internal Medicine
DX: R07.89 Other chest pain (principal); R05.9 Cough, unspecified; E11.65 Type 2 diabetes mellitus with hyperglycemia; R06.02 Shortness of breath; Z79.899 Other long term (current) drug therapy; Z87.891 Personal history of nicotine dependence
CPT/HCPCS: 36415; 71045; 74176; 80048; 80076; 82947; 83690; 84484; 85025; 93005; 96361; 96374; 96375; 99285; J2270

== ENCOUNTER 2022-06-19 07:17 | Outpatient (REF) | payer MEDICARE, SELFPAY ==
--- NOTE | 2022-06-19 08:21 | ECG_ITS ---
Test Reason : bradycardia Blood Pressure : / mmHG Vent. Rate : 046 BPM Atrial Rate : 046 BPM P-R Int : 190 ms QRS Dur : 094 ms QT Int : 500 ms P-R-T Axes : 022 041 054 degrees QTc Int : 437 ms Sinus bradycardia Minimal voltage criteria for LVH, may be normal variant ( Sokolow-Dhillon ) Borderline ECG When compared with ECG of 02-MAY-2022 02:04, Vent. rate has decreased BY 27 BPM Referred By: Miller Rush Electronically Signed By:YUNIER WILLETT
[2022-06-19 08:26] LABS: MANUAL DIFF FLAG NO
[2022-06-19 09:06] LABS: Appearance Urine Clear; Color Urine Yellow; Glucose Urine UA 250 mg/dL (Negative); Leukocyte Esterase Urine Negative (Negative); Nitrite Urine Negative (Negative); PH 5.5 (5.0-9.0); Specific Gravity - Urine 1.025 (1.005-1.025); UMIC TRIGGER UACC YES; Urine Blood Negative (Negative); Urine Ketones Negative (Negative); Urine Protein 100 (2+) mg/dL (Neg-Trace)
[2022-06-19 09:06] LABS: Basophils Absolute Auto 0.1 X10*3/uL (0.0-0.2); Basophils Percent Auto 0.9 % (0-2); Eosinophils Absolute Auto 0.2 X10*3/uL (0.0-0.4); Eosinophils Percent Auto 2.6 % (0-4); Hematocrit 36.3 % (42.0-52.0); Imm Gran Abs Auto 0.04 X10*3/uL (0.00-0.03); Imm Gran Pct Auto 0.5 % (0.0-0.4); Lymphocytes Percent Auto 34.5 % (20-40); Mean Corpuscular HGB Conc 33.1 g/dl (31.0-36.0); Mean Corpuscular Hemoglobin 30.2 pg (27.0-33.0); Mean Corpuscular Volume 91.4 fL (80.0-98.0); Mean Platelet Volume 11.9 fL (9.4-12.4); Monocytes Absolute Auto 0.7 X10*3/uL (0.1-1.2); Monocytes Percent Auto 8.4 % (2-11); Neutrophils Absolute Auto 4.6 x10*3/uL (2.0-8.3); Neutrophils Percent Auto 53.1 % (45-73); Platelet Count 317 X10*3/uL (160-400); Red Blood Count 3.97 X10*6/uL (4.60-5.80); Red Cell Distribution Width 12.4 % (11.0-16.0); White Blood Count 8.6 X10*3/uL (4.8-10.8)
[2022-06-19 09:12] LABS: Bacteria Urine None Seen (None Seen); Hyaline Casts Urine 0-2 /LPF (0-2); RBC Urine 0-2 /HPF (0-2); Squamous Epithelial Cell Urine 0-2 /HPF (0-2); WBC Urine 0-5 /HPF (0-5)
[2022-06-19 09:36] LABS: Creatinine Urine 158.85 mg/dL
[2022-06-19 09:37] LABS: Estimated Glomerular Filt Rate 40
[2022-06-19 09:43] LABS: Anion Gap 13 (12-20); Blood Urea Nitrogen 31 mg/dL (9-16); Calcium 9.8 mg/dL (8.4-10.2); Carbon Dioxide 24 mmol/L (22-29); Chloride 105 mmol/L (96-108); Cholesterol 266 mg/dL; Estimated Glomerular Filt Rate 41; Glucose Random 143 mg/dL (60-115); HDL Cholesterol 29 mg/dL; Iron 62 mcg/dL (45-160); Percent Iron Saturation 21 % (15-50); Sodium 137 mmol/L (135-145); Total Iron Binding Capacity 299 mcg/dL (228-428); Triglycerides 510 mg/dL; Unsaturated Iron Binding 237 ug/dL
[2022-06-19 09:53] LABS: TSH reflex Free T4 2.89 uIU/mL (0.32-4.0)
[2022-06-19 09:58] LABS: Ferritin 75 ng/mL (20-250); Vitamin D 25-OH Total 20.5 ng/mL (>30)
[2022-06-19 10:10] LABS: Folate 6.7 ng/mL (> or = 4.0); Vitamin B12 471 pg/mL (200-900)
[2022-06-19 10:27] LABS: Estimated Average Glucose 180 mg/dL; Hemoglobin A1c % 7.9 %
[2022-06-24 12:28] LABS: Zinc 54 mcg/dL (60-130)
== END 2022-06-19 07:18 | disposition home or self-care (01) ==
LOC: HO.LAB 07:17
PROVIDERS: PCP Internal Medicine; Referring Provider Internal Medicine; Visit Provider Internal Medicine Gastroenterology
DX: K50.919 Crohn's disease, unspecified, with unspecified complications (principal); K21.9 Gastro-esophageal reflux disease without esophagitis; K59.00 Constipation, unspecified; E11.9 Type 2 diabetes mellitus without complications; E78.00 Pure hypercholesterolemia, unspecified; D64.9 Anemia, unspecified; R00.1 Bradycardia, unspecified; R11.2 Nausea with vomiting, unspecified; Z86.010 Personal history of colon polyps
CPT/HCPCS: 36415; 80048; 80061; 81001; 82043; 82306; 82565; 82607; 82728; 82746; 83036; 83540; 84443; 84630; 85025; 93005; 99212

== ENCOUNTER 2022-09-26 14:15 | Outpatient (REF) | payer MEDICARE, SELFPAY ==
--- NOTE | ~2022-09-26 | US_ITS ---
EXAMINATION: US RETROPERITONEAL LIMITED (RENAL ONLY) CLINICAL INFORMATION: Persistent proteinuria, CKD stage 3a. COMPARISON: CT abdomen and pelvis 05/02/2022. TECHNIQUE: Real-time imaging of the kidneys. FINDINGS: RIGHT KIDNEY: 11.7 x 6.1 x 4.8 cm (SAG x AP x TRV). The kidney is normal in size and echogenicity. Small nonspecific perinephric free fluid. Renal cortical thickness is normal. No calculi or focal parenchymal lesions. No hydronephrosis. LEFT KIDNEY: 11.5 x 5.5 x 4.8 cm (SAG x AP x TRV). The kidney is normal in size and echogenicity. Small nonspecific perinephric free fluid. Renal cortical thickness is normal. No calculi or focal parenchymal lesions. No hydronephrosis. US/US renal BI IMPRESSION: Small nonspecific perinephric free fluid bilaterally although similar to prior CT
== END 2022-09-26 14:16 | disposition home or self-care (01) ==
LOC: HO.US 14:15
PROVIDERS: PCP Internal Medicine; Visit Provider Internal Medicine Nephrology
DX: R80.1 Persistent proteinuria, unspecified (principal); E11.22 Type 2 diabetes mellitus with diabetic chronic kidney disease; N18.31 Chronic kidney disease, stage 3a
CPT/HCPCS: 76775

== ENCOUNTER 2022-10-01 13:18 | Outpatient (REF) | payer MEDICARE, SELFPAY ==
[2022-10-01 13:37] LABS: MANUAL DIFF FLAG NO
[2022-10-01 14:03] LABS: Basophils Absolute Auto 0.1 X10*3/uL (0.0-0.2); Basophils Percent Auto 1.2 % (0-2); Eosinophils Absolute Auto 0.1 X10*3/uL (0.0-0.4); Eosinophils Percent Auto 1.9 % (0-4); Hematocrit 34.6 % (42.0-52.0); Hemoglobin 11.6 g/dl (14.0-18.0); Imm Gran Abs Auto 0.05 X10*3/uL (0.00-0.03); Imm Gran Pct Auto 0.8 % (0.0-0.4); Lymphocytes Absolute Auto 2.1 X10*3/uL (1.2-4.9); Lymphocytes Percent Auto 32.6 % (20-40); Mean Corpuscular HGB Conc 33.5 g/dl (31.0-36.0); Mean Corpuscular Hemoglobin 30.1 pg (27.0-33.0); Mean Corpuscular Volume 89.9 fL (80.0-98.0); Mean Platelet Volume 11.9 fL (9.4-12.4); Monocytes Absolute Auto 0.5 X10*3/uL (0.1-1.2); Monocytes Percent Auto 8.3 % (2-11); Neutrophils Absolute Auto 3.6 x10*3/uL (2.0-8.3); Neutrophils Percent Auto 55.2 % (45-73); Platelet Count 295 X10*3/uL (160-400); Red Blood Count 3.85 X10*6/uL (4.60-5.80); Red Cell Distribution Width 12.8 % (11.0-16.0); White Blood Count 6.5 X10*3/uL (4.8-10.8)
[2022-10-01 14:07] LABS: Appearance Urine Clear; Color Urine Yellow; Glucose Urine UA 500 mg/dL (Negative); Leukocyte Esterase Urine Negative (Negative); Nitrite Urine Negative (Negative); Specific Gravity - Urine 1.015 (1.005-1.025); UMIC TRIGGER UACC YES; Urine Blood Negative (Negative); Urine Ketones Negative (Negative); Urine Protein 30 (1+) mg/dL (Neg-Trace)
[2022-10-01 14:10] LABS: Bacteria Urine None Seen (None Seen); Hyaline Casts Urine 0-2 /LPF (0-2); RBC Urine 0-2 /HPF (0-2); Squamous Epithelial Cell Urine 0-2 /HPF (0-2); WBC Urine 0-5 /HPF (0-5)
[2022-10-01 15:04] LABS: Creatinine Urine 114.25 mg/dL; Microalbum/Creatinine Ratio Ur 174.1 ug/mg cr
[2022-10-01 15:19] LABS: Alanine Aminotransferase 17 U/L (0-40); Albumin Level 4.1 g/dL (3.5-5.0); Alkaline Phosphatase 85 U/L (39-117); Anion Gap 13 (12-20); Aspartate Amino Transferase 17 U/L (5-37); Bilirubin Total 0.9 mg/dL (0.0-1.0); Blood Urea Nitrogen 34 mg/dL (9-16); Calcium 9.3 mg/dL (8.4-10.2); Carbon Dioxide 24 mmol/L (22-29); Chloride 103 mmol/L (96-108); Cholesterol 181 mg/dL; Estimated Glomerular Filt Rate 32; Glucose Fasting 250 mg/dL (60-99); HDL Cholesterol 25 mg/dL; LDL Cholesterol Calculated 87 mg/dl; Potassium 5.2 mmol/L (3.3-5.1); Sodium 135 mmol/L (135-145); Total Protein 6.3 g/dL (6.5-8.0); Triglycerides 346 mg/dL
[2022-10-01 15:37] LABS: Prostate Specific Antigen 0.81 ng/mL (<0.05-4.0); TSH reflex Free T4 1.95 uIU/mL (0.32-4.0); Vitamin D 25-OH Total 53.2 ng/mL (>30)
== END 2022-10-01 13:19 | disposition home or self-care (01) ==
LOC: HO.LAB 13:18
PROVIDERS: PCP Internal Medicine; Visit Provider Internal Medicine
DX: Z00.00 Encounter for general adult medical examination without abnormal findings (principal); E55.9 Vitamin D deficiency, unspecified; I10 Essential (primary) hypertension; E78.00 Pure hypercholesterolemia, unspecified; N40.0 Benign prostatic hyperplasia without lower urinary tract symptoms; E11.9 Type 2 diabetes mellitus without complications; R30.0 Dysuria; Z12.5 Encounter for screening for malignant neoplasm of prostate
CPT/HCPCS: 36415; 80053; 80061; 81001; 82043; 82306; 84153; 84443; 85025

== ENCOUNTER 2022-12-05 12:53 | Outpatient (REF) | payer MEDICARE, SELFPAY ==
--- NOTE | ~2022-12-05 | XR_ITS ---
EXAMINATION: XR CHEST CLINICAL INFORMATION: Respiratory disorder COMPARISON: Previous chest x-ray most recent April 2022 TECHNIQUE: 2 views of the chest were obtained. FINDINGS: The cardiac silhouette is upper normal in size but stable. The lungs are clear. No pleural effusion or pneumothorax. Degenerative changes of the spine. Curvature of the midthoracic spine to the right. XR/XR chest 2V IMPRESSION: No evidence for acute disease in the chest.
[2022-12-05 13:04] LABS: MANUAL DIFF FLAG NO
[2022-12-05 13:11] LABS: Basophils Absolute Auto 0.1 X10*3/uL (0.0-0.2); Basophils Percent Auto 0.9 % (0-2); Eosinophils Absolute Auto 0.6 X10*3/uL (0.0-0.4); Hematocrit 32.7 % (42.0-52.0); Imm Gran Abs Auto 0.05 X10*3/uL (0.00-0.03); Imm Gran Pct Auto 0.6 % (0.0-0.4); Lymphocytes Absolute Auto 1.9 X10*3/uL (1.2-4.9); Lymphocytes Percent Auto 21.8 % (20-40); Mean Corpuscular HGB Conc 33.6 g/dl (31.0-36.0); Mean Corpuscular Hemoglobin 29.9 pg (27.0-33.0); Mean Corpuscular Volume 88.9 fL (80.0-98.0); Monocytes Absolute Auto 0.7 X10*3/uL (0.1-1.2); Monocytes Percent Auto 7.5 % (2-11); Neutrophils Absolute Auto 5.5 x10*3/uL (2.0-8.3); Neutrophils Percent Auto 62.2 % (45-73); Platelet Count 331 X10*3/uL (160-400); Red Blood Count 3.68 X10*6/uL (4.60-5.80); Red Cell Distribution Width 12.6 % (11.0-16.0); White Blood Count 8.9 X10*3/uL (4.8-10.8)
[2022-12-05 13:32] LABS: Estimated Average Glucose 206 mg/dL; Hemoglobin A1c % 8.8 %
[2022-12-05 14:00] LABS: Appearance Urine Clear; Color Urine Yellow; Glucose Urine UA 250 mg/dL (Negative); Leukocyte Esterase Urine Negative (Negative); Nitrite Urine Negative (Negative); UMIC TRIGGER UACC YES; Urine Blood Negative (Negative); Urine Ketones Negative (Negative); Urine Protein 30 (1+) mg/dL (Neg-Trace)
[2022-12-05 14:03] LABS: Bacteria Urine None Seen (None Seen); Hyaline Casts Urine 0-2 /LPF (0-2); RBC Urine 0-2 /HPF (0-2); Squamous Epithelial Cell Urine 0-2 /HPF (0-2); WBC Urine 0-5 /HPF (0-5)
[2022-12-05 14:03] LABS: Alanine Aminotransferase 13 U/L (0-40); Albumin Level 3.9 g/dL (3.5-5.0); Alkaline Phosphatase 92 U/L (39-117); Anion Gap 13 (12-20); Aspartate Amino Transferase 13 U/L (5-37); Bilirubin Total 0.6 mg/dL (0.0-1.0); Blood Urea Nitrogen 20 mg/dL (9-16); Calcium 9.4 mg/dL (8.4-10.2); Carbon Dioxide 22 mmol/L (22-29); Chloride 103 mmol/L (96-108); Cholesterol 137 mg/dL; Estimated Glomerular Filt Rate 51; Glucose Fasting 197 mg/dL (60-99); HDL Cholesterol 26 mg/dL; LDL Cholesterol Calculated 55 mg/dl; Potassium 5.1 mmol/L (3.3-5.1); Sodium 133 mmol/L (135-145); Total Protein 6.9 g/dL (6.5-8.0); Triglycerides 282 mg/dL
[2022-12-05 14:27] LABS: Creatinine Urine 52.56 mg/dL; Microalbum/Creatinine Ratio Ur 325.3 ug/mg cr
== END 2022-12-05 12:54 | disposition home or self-care (01) ==
LOC: HO.LAB 12:53
PROVIDERS: PCP Internal Medicine; Visit Provider Internal Medicine
DX: J98.8 Other specified respiratory disorders (principal); E11.9 Type 2 diabetes mellitus without complications; I10 Essential (primary) hypertension; E78.00 Pure hypercholesterolemia, unspecified; R30.0 Dysuria
CPT/HCPCS: 36415; 71046; 80053; 80061; 81001; 82043; 83036; 85025

== ENCOUNTER 2023-01-20 14:52 | Outpatient (REF) | payer MEDICARE, SELFPAY ==
[2023-01-20 15:03] LABS: MANUAL DIFF FLAG NO
[2023-01-20 15:43] LABS: Basophils Absolute Auto 0.1 X10*3/uL (0.0-0.2); Basophils Percent Auto 1.2 % (0-2); Eosinophils Absolute Auto 0.3 X10*3/uL (0.0-0.4); Eosinophils Percent Auto 4.6 % (0-4); Hematocrit 32.7 % (42.0-52.0); Hemoglobin 10.7 g/dl (14.0-18.0); Imm Gran Abs Auto 0.04 X10*3/uL (0.00-0.03); Imm Gran Pct Auto 0.6 % (0.0-0.4); Lymphocytes Absolute Auto 2.2 X10*3/uL (1.2-4.9); Lymphocytes Percent Auto 29.7 % (20-40); Mean Corpuscular HGB Conc 32.7 g/dl (31.0-36.0); Mean Corpuscular Hemoglobin 29.3 pg (27.0-33.0); Mean Corpuscular Volume 89.6 fL (80.0-98.0); Mean Platelet Volume 11.8 fL (9.4-12.4); Monocytes Absolute Auto 0.6 X10*3/uL (0.1-1.2); Monocytes Percent Auto 7.9 % (2-11); Neutrophils Absolute Auto 4.1 x10*3/uL (2.0-8.3); Platelet Count 289 X10*3/uL (160-400); Red Blood Count 3.65 X10*6/uL (4.60-5.80); Red Cell Distribution Width 13.1 % (11.0-16.0); White Blood Count 7.2 X10*3/uL (4.8-10.8)
[2023-01-20 16:06] LABS: Appearance Urine Clear; Color Urine Yellow; Glucose Urine UA 250 mg/dL (Negative); Leukocyte Esterase Urine Negative (Negative); Nitrite Urine Negative (Negative); PH 6.5 (5.0-9.0); Specific Gravity - Urine 1.015 (1.005-1.025); UMIC TRIGGER UACC YES; Urine Blood Negative (Negative); Urine Ketones Negative (Negative); Urine Protein 30 (1+) mg/dL (Neg-Trace)
[2023-01-20 16:13] LABS: Bacteria Urine None Seen (None Seen); Hyaline Casts Urine 0-2 /LPF (0-2); RBC Urine 0-2 /HPF (0-2); Squamous Epithelial Cell Urine 0-2 /HPF (0-2); WBC Urine 0-5 /HPF (0-5)
[2023-01-20 16:25] LABS: TSH reflex Free T4 1.76 uIU/mL (0.32-4.0); Vitamin D 25-OH Total 45.7 ng/mL (>30)
[2023-01-20 17:51] LABS: Alanine Aminotransferase 15 U/L (0-40); Albumin Level 4.1 g/dL (3.5-5.0); Alkaline Phosphatase 82 U/L (39-117); Anion Gap 13 (12-20); Aspartate Amino Transferase 16 U/L (5-37); Bilirubin Total 0.6 mg/dL (0.0-1.0); Blood Urea Nitrogen 24 mg/dL (9-16); Calcium 9.5 mg/dL (8.4-10.2); Carbon Dioxide 24 mmol/L (22-29); Chloride 105 mmol/L (96-108); Cholesterol 136 mg/dL; Estimated Glomerular Filt Rate 44; Glucose Fasting 155 mg/dL (60-99); HDL Cholesterol 27 mg/dL; LDL Cholesterol Calculated 79 mg/dl; Sodium 136 mmol/L (135-145); Total Protein 6.9 g/dL (6.5-8.0); Triglycerides 150 mg/dL
[2023-01-20 22:09] LABS: Creatinine Urine 108.01 mg/dL; Microalbum/Creatinine Ratio Ur 196.2 ug/mg cr
== END 2023-01-20 14:53 | disposition home or self-care (01) ==
LOC: HO.LAB 14:52
PROVIDERS: PCP Internal Medicine; Visit Provider Internal Medicine
DX: Z00.00 Encounter for general adult medical examination without abnormal findings (principal); I10 Essential (primary) hypertension; E78.00 Pure hypercholesterolemia, unspecified; E11.9 Type 2 diabetes mellitus without complications; E55.9 Vitamin D deficiency, unspecified; R30.0 Dysuria
CPT/HCPCS: 36415; 80053; 80061; 81001; 81003; 82043; 82306; 84443; 85025

== ENCOUNTER 2023-01-21 15:18 | Outpatient (REF) | payer MEDICARE, SELFPAY ==
[2023-01-21 17:10] LABS: Potassium 5.8 mmol/L (3.3-5.1)
== END 2023-01-21 15:19 | disposition home or self-care (01) ==
LOC: HO.LAB 15:18
PROVIDERS: PCP Internal Medicine; Visit Provider Nurse Practitioner Family
DX: E87.5 Hyperkalemia (principal)
CPT/HCPCS: 36415; 84132

== ENCOUNTER 2023-01-22 11:55 | Outpatient (AMB) | payer MEDICARE, SELFPAY ==
--- NOTE | 2023-01-22 11:58 | MHC.OFFVIS ---
Intake Vital Signs 01/22/23 12:07 Height 6 ft 1 in Weight 239 lb BMI 31.5 BP 143/64 H Blood Pressure Location Lt brachial Position Sitting Pulse 54 Intake Visit Reasons: 4 month follow up Intake Note: Patient follow up for Anemia and lab results. Patient denies any GI issues. 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 Required: No Accompanied by: Self / Same As Patient Allergies sertraline [SERTRALINE] Allergy (Severe, Verified 01/22/23 12:01) RASH, ABD PAIN DEHYDRATION Penicillins [PENICILLINS] Allergy (Intermediate, Verified 01/22/23 12:01) RASH Medication List - Last Reconciled 01/22/23 by Miller Rush MD albuterol sulfate 90 mcg/actuation (Ventolin HFA) 2 puffs inhalation Q6H PRN 30 days amlodipine 5 mg PO DAILY 90 days aspirin (Adult Low Dose Aspirin) 81 mg PO DAILY atenolol 50 mg PO DAILY benzonatate 100 mg PO BID-TID PRN 30 days blood pressure test kit-wrist As directed blood sugar diagnostic (Bioscan Verio test strips) As directed- in vitro 3 times a day cholecalciferol (vitamin D3) 250 mcg PO 2XW 90 days cyanocobalamin (vitamin B-12) 1,000 mcg PO DAILY 30 days doxycycline monohydrate 100 mg PO BID 5 days fluoxetine 60 mg (3 x 20 mg) PO DAILY 30 days fluticasone propionate 50 mcg/actuation 1 spray intranasal DAILY insulin lispro (Humalog KwikPen (U-100) Insulin) Take 2 to 8 units SQ 4 times a day - with meals and at bedtime - PER SLIDING SCALE (see below for sliding scale details) Insulin as advised before meals 0-150: 0 unit 151-200: 2 units 201-250: 4 units 251-300: 6 units 301-350: 8 units >351 call irbesartan 300 mg PO DAILY lancets (Bioscan Delica Lancets) As directed Lantus Solostar U-100 Insulin (insulin glargine) 70 units (0.7 mL) subcut DAILY NS metformin 1,000 mg PO BID mirtazapine 15 mg PO BEDTIME 90 days nystatin 1 appl topical DAILY 15 days omeprazole 40 mg PO BID pen needle, diabetic (Easy Touch) 1 ea miscellaneous BID 30 days pyridoxine (vitamin B6) 50 mg PO DAILY 30 days rosuvastatin 10 mg PO DAILY 90 days sennosides (senna) 8.6 mg PO DAILY PRN 90 days sodium zirconium cyclosilicate (Lokelma) 10 grams PO ONCE thiamine HCl (vitamin B1) 100 mg PO DAILY 30 days HPI 4 month follow up HPI Details GI clinic visit for this 67-year-old male for FU of IBD (started on Lialda since Jun 2018), diverticulosis, history of colon polyps and fatty liver. ?CHRONIC ILLNESSES:?GERD, Type II diabetes-uncontrolled, Hypertension, Insomnia, Fatty liver, normal gallbladder (US 01/25), Diarrhea x 1 yr (noted 02/25), ? ? ? TUBULAR ADENOMAS 2009, ED, Epigastric abdominal pain ? Anemia, FHx: IBD, Stress at work, Hyperlipidemia LDL goal < 100 ? LABS IN [facility]: 01/04/20 H & H of 12.2 and 36.2, Plt 287, ? Na 131, K 5.1, BUN 15, Cr 1.26, normal LFTs, CRP 0.08 ? 05/2018 Vitamin B 12 279 ? November,: Negative serologies for celiac sprue. IMAGING STUDIES:? 04/[address] SCAN SHOWED: 1.? No acute intra-abdominal or intrapelvic abnormalities. No evidence of active Crohn's disease. 2.? Moderate volume of stool throughout the colon. 3.? Mild colonic diverticulosis without evidence of acute diverticulitis. 4.? Mild prostatomegaly. ENDOSCOPIC STUDIES: 04/2021 EGD AND COLON SHOWED: Endoscopy Findings: STOMACH: Mild antral gastritis DUODENUM: Biopsies obtained from 3rd part of duodenum to check for UGI Crohn's disease. Colonoscopy Findings: No polyps were detected. Normal TI. Inactive colitis throughout the colon - no ulcers or erythema noted Random biopsies obtained from the TI, right colon, left colon and rectum. Moderate diverticulosis seen in the left colon Moderate hemorrhoids on retroflexed exam. No source found for nausea and decreased appetite. No evidence of active Crohn's disease on colonoscopy today. Of note CRP and fecal calprotectin was normal and MRE did not show evidence of small bowel disease Plan:? Repeat Colonoscopy interval based on path results - in 5 years due to hx of Crohn's disease. Above findings were reviewed with the patient and Gastritis and diverticulosis handouts were given in the discharge area. Pt was advised to monitor his symptoms for now (since he has been off medications for Crohn's disease x past 3 mon Jun, 2018: Repeat colon showed: Colonoscopy Findings: ? No polyps were seen. Colitis noted on past colonoscopy has resolved. Patient had inactive colitis ? throughout the colon - random biopsies obtained from the right and left colon ? Moderate diverticulosis seen in the sigmoid colon ? Small hemorrhoids on retroflexed exam. ? Plan: Await pathology results Continue present medications (Lialda PO once daily) - patient notes resolution of diarrhea Patient has an appointment on 07/26/18 in the GI Clinic with GENNA Loera. Repeat Colonoscopy interval based on path results in 5 years due to diagnosis of IBD. ? Biopsies showed: ? A. Colon, right, biopsy: Colonic mucosa within normal limits. ? B. Colon, left, biopsy: Chronic inactive colitis. ? COMMENT: No dysplasia or granulomata are seen. IBD SUMMARY YEAR OF DIAGNOSIS: 2018 DISEASE EXTENT:? Pancolitis LAST COLONOSCOPY FINDINGS:Jun, 2018 No polyps were seen. Colitis noted on past colonoscopy has resolved. Patient had inactive colitis ?throughout the colon - random biopsies obtained from the right and left colon ?Moderate diverticulosis seen in the sigmoid colon NEXT COLON DUE: Jun, 2023 EXTRAINTESTINAL MANIFESTATIONS:? None GI SURGERY:? umbilical hernia repair 1994 PAST TREATMENTS:? Lialda CURRENT THERAPY:?Lialda Tablet Delayed Release, 1.2 GM, 2 tablets, Orally, Once a day ?TODAY'S VISIT No ETOH over the past 10 months. Denies diarrhea or constipation Has a BM 2-3 times a day with passage of soft stools without blood or mucous. Unable to recall when he stopped taking the Lialda (unable to take since not covered by his insurance). Denies recurrent symptoms of diarrhea, heartburn or dysphagia. PAST VISIT: Denies constipation and has been going regularly without a problem. Takes Senna once a day. Pt denies feeling lightheaded or dizzy. Stopped drinking 10 weeks ago and is feeling much better. Ran out of Lialda a month ago and unable to refill due to high copay. Notes bloating and increased burping. Notes cough in the am and if he coughs too much, he will throw up. Takes Omeprazole once a day for GERD. No appetite. No BM in 3 days and had a BM today - regular He had to take some immodium a few days ago He was having watery stools (5-6 in 2 hrs) a few days ago. Denies blood or mucous in the stool. Doing good. ? Crohn's acts up once in a while related to diet. ? Can have 2-3 non-bloody BM's a day. ? Once in a while he can get diarrhea - usually food related - fast food or hamburgers, ? Has not been taking spicy foods. ? Denies abdominal pain. ? Has two formed BMs a day ? Appetite is fine and weighs 233 lbs. ? Has a normal BM once a day or every other ? Denies problems with diarrhea or rectal bleeding. ? Gas has improved. ? Nausea has resolved. ? No diarrhea since he started taking the Lialda. ? Taking Lialda 2 tablets daily - co-pay is $ 50 per month [facility] Medical History Allergic rhinitis Anxiety Benign essential hypertension Chronic kidney disease (CKD), stage III (moderate) Crohn's disease Depression Environmental allergies GERD (gastroesophageal reflux disease) H/O hyperkalemia Insomnia group home (current) use of insulin Memory impairment Microalbuminuria Mixed hyperlipidemia Obesity (BMI 30-39.9) Obstructive sleep apnea Primary osteoarthritis, left shoulder Prostate cancer screening Pure hypercholesterolemia Recurrent cough Type 2 diabetes mellitus with diabetic polyneuropathy Surgical History History of esophagogastroduodenoscopy (EGD) History of umbilical hernia repair Hx of colonoscopy Family History Father Diabetes Melanoma Mother Diabetes Hypertension Cancer Sister Diabetes Social History Housing: Apartment Alcohol intake: former Patient Tobacco Use Status: Former Tobacco user Quit Date: 3 months ago e-Cigarette/Vaping Use: Never Used Second Hand Smoke Exposure: No service: No Current occupational status: employed Cognitive needs: No Hearing needs: No Vision needs: No Review of Systems Const All systems reviewed & are unremarkable except as noted in HPI and below Physical Exam Vital Signs: Last Vital Signs Pulse 54 01/22/23 12:07 BP 143/64 H 01/22/23 12:07 BMI result Body Mass Index 31.5 Const General: healthy appearing and no acute distress Nutritional Appearance: obese Orientation/consciousness: patient oriented x3 Limitations: no limitations HEENT Head: Yes normal to inspection Ears: hearing grossly normal bilaterally Eyes Sclerae: sclerae normal Pupils: Equal, round and reactive pupils present Neck Neck: Yes normal visual inspection Chest Chest palpation & inspection: normal inspection of the chest Resp Effort & Inspection: normal respiratory effort Auscultation: clear to auscultation bilaterally Cardio Palpation: normal PMI Rate: regular rate Rhythm: regular rhythm Heart sounds: S1 normal heart sound present, S2 normal heart sound present and no murmurs GI Palpation (GI): Soft to palpation, nontender and No hepatosplenomegaly present Auscultation: normal bowel sounds Rectal Exam - Male: Yes deferred Skin General skin exam: no rashes or lesions noted Neuro General: patient oriented x3, gait normal and moves all extremities Cranial nerves: Yes Equal, round and reactive pupils present Psych Appearance: grossly normal Mental Status: mental status grossly normal Assessment & Plan Assessment & Plan (1) Constipation: Code(s): K59.00 - Constipation, unspecified (2) History of colon polyps: Code(s): Z86.010 - Personal history of colonic polyps (3) Nausea and vomiting: Code(s): R11.2 - Nausea with vomiting, unspecified (4) GERD (gastroesophageal reflux disease): Code(s): K21.9 - Gastro-esophageal reflux disease without esophagitis Qualifiers: Esophagitis presence: without esophagitis Qualified Code(s): K21.9 - Gastro-esophageal reflux disease without esophagitis (5) Crohn's disease: Code(s): K50.90 - Crohn's disease, unspecified, without complications Qualifiers: Digestive disease complication type: unspecified complication Gastrointestinal tract location: unspecified location Qualified Code(s): K50.919 - Crohn's disease, unspecified, with unspecified complications (6) Crohn's disease of colon: Code(s): K50.10 - Crohn's disease of large intestine without complications Plan 67 YM with GERD, Type II diabetes-uncontrolled, Hypertension, Insomnia, Fatty liver, normal gallbladder (US 01/25), Diarrhea x 1 yr (noted 02/25), TUBULAR ADENOMAS 2008, ED, Epigastric abdominal pain Anemia, FHx: Crohn's disease, Hyperlipidemia LDL goal < 100 Pt was diagnosed with IBD in 12/2017 (likely Crohn's colitis) seen for right sided abdominal pain. 12/30 Colonoscopy showed Diffuse edema, erythema and ulcerations throughout the colon - right colon appeared more inflamed than the left - Inflammation resolved with Lialda. Repeat colonoscopy in June 2018 confirmed resolution of inflammation. Patient was advised to continue Lialda 2 tablets daily. Lab evaluation revealed persistent anemia raising concern for possible small bowel Crohn's disease. An MR enterography was normal. Pt discontinued Lialda a month ago since he ran out.? he is unable to refill it since it costs him $250 due to a high deductable 02/2021 EGD and colonoscopy was performed and results as noted above. Patient was advised to have labs and an EKG (bradycardia) checked today and schedule a FU appt with his PCP - FU with PCP scheduled on 07/01/22 Pt called with lab results (showed improvement in anemia and increase in Cr) and EKG (sinus bradycardia) results were reviewed with him Sees Dr Smith in Nephrology and advised to FU with Dr Smith and PCP Advised to go to [facility] walkin clinic if he notes any dizziness. 01/22/23 Pt has not been taking Lialda since it is not covered by his insurance. Pt denies diarrhea or bloody stools. He was advised to have his stool checked for fecal calprotectin - if normal will hold off treatment for Crohn's disease Pt advised to discuss decreasing dose of atenolol with his PCP at his FU appt on 02/02/23 (noted to have bradycardia and hyperkalemia) Message sent to PCP. FU in 4 months Orders: Orders Calprotectin, Fecal Today K50.10 - Crohn's disease of large intestine without complications C Reactive Protein Today K50.10 - Crohn's disease of large intestine without complications Medications: Discontinued sodium zirconium cyclosilicate (Lokelma) Discontinued Reason: Doctor's Order 5 grams PO ONCE 1 ea 0RF E87.5 - Hyperkalemia Coding Level of Care Code Est Pt Level 4 (38496) Diagnoses Constipation K59.00 History of colon polyps Z86.010 Nausea and vomiting R11.2 GERD (gastroesophageal reflux disease) K21.9 Esophagitis presence: without esophagitis Crohn's disease K50.919 Digestive disease complication type: unspecified complication Gastrointestinal tract location: unspecified location Crohn's disease of colon K50.10 Time Spent (min) 24
[2023-01-22 12:07] VITALS: BP 143/64; PULSE 54; BMI 31.5
== END 2023-01-22 12:39 | disposition home or self-care (01) ==
PROVIDERS: PCP Internal Medicine; Visit Provider Internal Medicine Gastroenterology
DX: K59.00 Constipation, unspecified (principal); Z86.010 Personal history of colon polyps; R11.2 Nausea with vomiting, unspecified; K21.9 Gastro-esophageal reflux disease without esophagitis; K50.919 Crohn's disease, unspecified, with unspecified complications; K50.10 Crohn's disease of large intestine without complications
CPT/HCPCS: 99214

== ENCOUNTER → 2023-01-22 11:55 | Outpatient (BNVA) | payer MEDICARE, SELFPAY | PROVIDERS: PCP Internal Medicine; Visit Provider Internal Medicine Gastroenterology | DX: K59.00 Constipation, unspecified (principal); R11.2 Nausea with vomiting, unspecified; K21.9 Gastro-esophageal reflux disease without esophagitis; K50.119 Crohn's disease of large intestine with unspecified complications; Z86.010 Personal history of colon polyps | CPT/HCPCS: 99212 ==

== ENCOUNTER 2023-02-02 13:30 | Outpatient (AMB) | payer MEDICARE, SELFPAY ==
[2023-02-02 14:01] VITALS: BP 122/80; PULSE 51; O2SAT 96; BMI 32.1
--- NOTE | 2023-02-02 14:01 | MHC.PC.OV ---
Vital Signs 02/02/23 14:01 Height 6 ft 1 in Weight 243 lb BMI 32.1 BP 122/80 Blood Pressure Location Lt brachial Position Sitting Pulse 51 Pulse Source Pulse Oximeter Pulse Oximetry (%) 96 Oxygen Delivery Method Room Air Intake Visit Reasons: 4mth f/u Shingler Required: No Accompanied by: Self / Same As Patient Allergies sertraline [SERTRALINE] Allergy (Severe, Verified 02/02/23 14:40) RASH, ABD PAIN DEHYDRATION Penicillins [PENICILLINS] Allergy (Intermediate, Verified 02/02/23 14:40) RASH Medication List - Last Reconciled 02/02/23 by Marcelo Lopez MD albuterol sulfate 90 mcg/actuation (Ventolin HFA) 2 puffs inhalation Q6H PRN 30 days amlodipine 5 mg PO DAILY 90 days aspirin (Adult Low Dose Aspirin) 81 mg PO DAILY atenolol 50 mg PO DAILY benzonatate 100 mg PO BID-TID PRN 30 days blood pressure test kit-wrist As directed blood sugar diagnostic ([employer] Verio test strips) As directed- in vitro 3 times a day cholecalciferol (vitamin D3) 250 mcg PO 2XW 90 days cyanocobalamin (vitamin B-12) 1,000 mcg PO DAILY 30 days doxycycline monohydrate 100 mg PO BID 5 days fluoxetine 60 mg (3 x 20 mg) PO DAILY 30 days fluticasone propionate 50 mcg/actuation 1 spray intranasal DAILY insulin lispro (Humalog KwikPen (U-100) Insulin) Take 2 to 8 units SQ 4 times a day - with meals and at bedtime - PER SLIDING SCALE (see below for sliding scale details) Insulin as advised before meals 0-150: 0 unit 151-200: 2 units 201-250: 4 units 251-300: 6 units 301-350: 8 units >351 call irbesartan 300 mg PO DAILY lancets ([employer] Delica Lancets) As directed Lantus Solostar U-100 Insulin (insulin glargine) 70 units (0.7 mL) subcut DAILY NS metformin 1,000 mg PO BID mirtazapine 15 mg PO BEDTIME 90 days nystatin 1 appl topical DAILY 15 days omeprazole 40 mg PO BID pen needle, diabetic (Easy Touch) 1 ea miscellaneous BID 30 days pyridoxine (vitamin B6) 50 mg PO DAILY 30 days rosuvastatin 10 mg PO DAILY 90 days sennosides (senna) 8.6 mg PO DAILY PRN 90 days sodium zirconium cyclosilicate (Lokelma) 10 grams PO ONCE thiamine HCl (vitamin B1) 100 mg PO DAILY 30 days Tobacco use date assessed: 02/02/23 Fall risk assessment: No Falls in past year Last assessed Fall Risk: 02/02/23 Dental Screening Dental Screen Date: 02/02/23 Did you have a dental visit in the last 12 months?: No Did you have a dental problem in the last 6 months where you did not have access to dental care?: No Was dental information given to patient?: Patient has dentist HPI 4mth f/u HPI Details Patient comes in today for his follow up visit States that he feels okay Has had some cough and congestion for a few days; states that his cough is non-productive and seem to occur more often at night Relates (+) mild sore throat but he denies any trouble swallowing; denies any fever He denies any headaches or dizziness Denies any chest pains, no SOB No nausea/vomiting, no abdominal pain No change in bowel habits noted Had his follow up labs done a couple of weeks ago - to discuss his results [facility] Medical History Mixed hyperlipidemia Obstructive sleep apnea Memory impairment Environmental allergies Chronic kidney disease (CKD), stage III (moderate) Prostate cancer screening H/O hyperkalemia Recurrent cough Obesity (BMI 30-39.9) Depression Anxiety Insomnia Primary osteoarthritis, left shoulder Crohn's disease GERD (gastroesophageal reflux disease) Pure hypercholesterolemia Benign essential hypertension 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 Type 2 diabetes mellitus with diabetic polyneuropathy Allergic rhinitis Surgical History History of esophagogastroduodenoscopy (EGD) Hx of colonoscopy History of umbilical hernia repair Family History Father Diabetes Melanoma Mother Diabetes Hypertension Cancer Sister Diabetes Social History Housing: Apartment Alcohol intake: former Patient Tobacco Use Status: Former Tobacco user Quit Date: 3 months ago e-Cigarette/Vaping Use: Never Used Second Hand Smoke Exposure: No service: No Current occupational status: employed Cognitive needs: No Hearing needs: No Vision needs: No Questionnaire PHQ-9 Over the last 2 weeks, how often have you been bothered by any of the following problems? 1. Little interest or pleasure in doing things: not at all 2. Feeling down, depressed, or hopeless: several days 3. Trouble falling or staying asleep, or sleeping too much: several days 4. Feeling tired or having little energy: not at all 5. Poor appetite or overeating: not at all 6. Feeling bad about yourself - or that you are a failure or have let yourself or your family down: not at all 7. Trouble concentrating on things, such as reading the newspaper or watching television: not at all 8. Moving or speaking so slowly that other people could have noticed. Or the opposite - being so fidgety or restless that you have been moving around a lot more than usual: not at all 9. Thoughts that you would be better off or of hurting yourself in some way: not at all Total score: 2 Depression Screening Interpretation: Positive Depression Screening Follow-up: Existing condition and In treatment 10241 - PHQ-9 Billing: Yes Source: Developed by Drs. Kirill Hanna, Jeimy Garcia, Bijan Milian and colleagues, with an educational rolanda from [employer]. Thrive Questionnaire Date Thrive assessed: 02/02/23 I am a: Patient What is your living situation today?: I have a steady place to live Within the past 12 months, did the food you bought not last and you didn't have the money to get more?: Never true Within the past 12 months, did you worry whether your food would run out before you got money to buy more?: Never true Do you have trouble paying for medicines?: No Do you have trouble getting transportation to medical appointments?: No Do you have trouble paying your heating and electricity bill?: No Do you have trouble taking care of your child, family member or friend?: No Do you have trouble with day-to-day activities such as bathing, preparing meals, shopping, managing finances, etc.?: No Are you currently unemployed and looking for a job?: No Are you interested in more education?: No Please select the resources that you would like help with: None Currently or been in a relationship where the following occur: no concerns reported AUDIT C Alcohol Use Questionnaire (AUDIT-C) 1. How often do you have a drink containing alcohol?: Monthly or less 2. How many drinks containing alcohol do you have on a typical day when you are drinking?: 1 or 2 3. How often do you have six or more drinks on one occasion?: Never Total Score: 1 Score Reviewed/Action Taken: Yes NOHEMY-7 AMB Questionnaire NOHEMY-7 Date NOHEMY - 7 assessed: 02/02/23 Feeling nervous, anxious, or on edge: 1 = Several days Not being able to stop or control worryin = Not at all Worrying too much about different things: 0 = Not at all Trouble relaxin = Not at all Being so restless that it is hard to sit still: 0 = Not at all Becoming easily annoyed or irritable: 0 = Not at all Feeling afraid as if something awful might happen: 0 = Not at all Total NOHEMY-7 score (0-4 normal; 5-9 mild; 10-14 moderate; 15-21 severe): 1 Source: Developed by Drs. Kirill Hanna, Jeimy Garcia, Bijan Milian and colleagues, with an educational rolanda from [employer]. NOHEMY-7 Assessment Billing NOHEMY-7 Assessment Tool: NOHEMY-7 Assessment 41776 Review of Systems Const Reports difficulty sleeping, Denies fatigue, Denies fever(s) and Denies headache(s) ENT Denies dysphagia, Denies dizziness, Denies otalgia, Denies headache(s), Reports nasal congestion, Denies neck pain, Denies odynophagia and Reports sore throat (mild) Card Denies chest pain, Denies rapid heart rate, Denies irregular heart rhythm, Denies palpitations and Denies dyspnea Resp Reports chest congestion (mild), Reports cough (on and off, non-productive), Denies dyspnea and Denies wheezing GI Denies abdominal pain, Denies constipation, Denies dysphagia, Denies heartburn, Denies diarrhea, Denies nausea, Denies odynophagia and Denies vomiting Denies difficulty urinating, Denies dysuria, Denies urinary frequency and Denies urinary urgency Musc Denies back pain, Denies arthralgias and Denies neck pain Skin/Breast Denies rash Neuro Denies dizziness, Denies headache(s) and Denies paresthesias Endo Denies fatigue and Denies palpitations Aller/Immun Denies wheezing Physical exam (Primary Care) Vital Signs: Last Vital Signs Pulse 51 02/02/23 14:01 BP 122/80 02/02/23 14:01 Pulse Ox 96 02/02/23 14:01 Oxygen Delivery Method Room Air 02/02/23 14:01 BMI result Body Mass Index 32.1 Tobacco/Smoking Status: Tobacco use Status Tobacco use date assessed 02/02/23 02/02/23 14:08 Patient Tobacco Use Status Former Tobacco user 02/02/23 14:08 e-Cigarette/Vaping Use Never Used 02/02/23 14:08 PHQ-9: PHQ-9 Score PHQ-9: Total score 2 02/02/23 14:42 Depression Screening Interpretation: Positive Depression Screening Follow-up: Existing condition and In treatment Thrive Assessment: Date of Thrive Assessment Date Thrive assessed 02/02/23 02/02/23 14:08 Currently or been in a relationship where the following occur: no concerns reported Const General: no acute distress and alert HENMT Ears: TM's normal bilaterally and EAC's normal Throat: Yes tonsils normal (no TP congestion) and Yes posterior oropharynx abnormal ((+) erythema of the posterior pharynx) Neck Neck: Yes no lymphadenopathy and Yes supple Thyroid: Thyroid normal Resp Auscultation: no crackles, no rales, rhonchi (scattered) throughout and no wheezes Cardio Rate: regular rate Rhythm: regular rhythm Heart sounds: no murmurs GI Palpation (GI): Soft to palpation and nontender Auscultation: normal bowel sounds General: Yes no CVA tenderness Back/Spine/Pelvis Back: no CVA tenderness Thoracic/Lumbar Spine: thoracic and lumbar spine normal to inspection Skin Rashes: no rashes Extrem General: Yes no clubbing, cyanosis or edema Results AMB Hemoglobin A1c AMB Hemoglobin A1c 9.7 % Last Edit by Beverly Mccarthy on 02/02/23 14:41 Results Reviewed Results Reviewed: Laboratory Last Values Hgb A1c (Clinic) 9.7 % (4.0-6.0) H 02/02/23 14:38 Laboratory Tests 12/05/22 01/20/23 01/20/23 13:03 15:02 15:02 WBC 7.2 Hgb 10.7 L Hct 32.7 L Plt Count 289 Sodium 136 Potassium Creatinine 1.56 H Estimated GFR 44 Fasting Glucose 155 H Hemoglobin A1c % 8.8 Calcium 9.5 AST 16 ALT 15 Triglycerides 150 Cholesterol 136 LDL Cholesterol, Calc 79 HDL Cholesterol 27 25-OH Vitamin D Total 45.7 TSH 1.76 Urine pH Ur Specific [place] Urine Protein Urine Glucose (UA) Urine Blood Microalb/Creat Ratio 01/20/23 01/20/23 01/21/23 15:15 15:15 15:26 WBC Hgb Hct Plt Count Sodium Potassium 5.8 H Creatinine Estimated GFR Fasting Glucose Hemoglobin A1c % Calcium AST ALT Triglycerides Cholesterol LDL Cholesterol, Calc HDL Cholesterol 25-OH Vitamin D Total TSH Urine pH 6.5 Ur Specific [place] 1.015 Urine Protein 30 (1+) H Urine Glucose (UA) 250 H Urine Blood Negative Microalb/Creat Ratio 196.2 Assessment and Plan Assessment & Plan (1) Type 2 diabetes mellitus with diabetic polyneuropathy: Code(s): E11.42 - Type 2 diabetes mellitus with diabetic polyneuropathy Qualifiers: Diabetes mellitus 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: with 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 use Qualified Code(s): E11.42 - Type 2 diabetes mellitus with diabetic polyneuropathy; 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 Plan: In-office HgbA1c done today is at 9.7% (HgbA1c was at 8.8% a few months ago in November 2022) - goal is <7.0% Reinforced diabetic diet Continue Lantus Solostar 70 units QD, Humalog 2 to 8 units 4 times a day (before meals and at bedtime) per sliding scale and Metformin 1000 mg BID Was also on Trulicity in the past but he could not afford the co-pay for the Rx Patient is cautioned that we may need to take him OFF Metformin soon as his renal function appears to have declined again over the past few months and this is most likely related to his poor diabetes control Will have him recheck his metabolic profile ISACC and we will determine our course of action depending on how his repeat GFR and serum creatinine come out Will also refer him urgently to endocrinology (patient prefers [facility]) for further evaluation and management to help us get his diabetes under control as quickly as possible (2) Chronic kidney disease (CKD), stage III (moderate): Code(s): N18.30 - Chronic kidney disease, stage 3 unspecified Qualifiers: Chronic kidney disease stage 3 subtype: stage 3b (GFR 30-44) Qualified Code(s): N18.32 - Chronic kidney disease, stage 3b Plan: Patient is cautioned that his renal function is declining and that we may need to take him OFF his Metformin soon Will have him recheck his metabolic profile today and will see if his serum creatinine has increased further - if it has, we will have to discontinue Metformin Reminded again that the best way to slow down the decline in his renal function is to get his diabetes under control and to keep his BP controlled as well as best as he can Follow up with nephrology as scheduled (3) Mixed hyperlipidemia: Code(s): E78.2 - Mixed hyperlipidemia Plan: Results of his labs done a couple of weeks ago reviewed and discussed with patient Reinforced low cholesterol diet Continue Rosuvastatin 10 mg QD; had some unrecalled problems with Atorvastatin in the past but is tolerating Rosuvastatin with no issues Will recheck his labs and fasting lipids in 3 months for follow up (4) Benign essential hypertension: Code(s): I10 - Essential (primary) hypertension Plan: Reinforced low sodium diet - goal is systolic BP of at least 120 to 130 mm or less Continue Irbesartan 300 mg QD, Amlodipine 5 mg QD and Atenolol 50 mg QD Used to also take HCTZ 12.5 mg QD in the past but this was discontinued at some point for unclear reasons; it is possible patient self-discontinued Rx inadvertently but as his BP now is reasonably controlled, will hold off on starting him back on this at present (5) Obstructive sleep apnea: Code(s): G47.33 - Obstructive sleep apnea (adult) (pediatric) Plan: Recently diagnosed and is now on CPAP therapy when he sleeps at night Follow up with Sleep Medicine as scheduled (6) Crohn's disease: Code(s): K50.90 - Crohn's disease, unspecified, without complications Qualifiers: Gastrointestinal tract location: unspecified location Digestive disease complication type: unspecified complication Qualified Code(s): K50.919 - Crohn's disease, unspecified, with unspecified complications Plan: Currently stable with no recent flare ups Was on Lialda 1.2 mg 2 tablets daily in the past but he stopped taking it a while back as he could not afford the cost of the Rx Follow up with GI (Dr. Rush) as scheduled (7) Upper respiratory tract infection: Code(s): J06.9 - Acute upper respiratory infection, unspecified Qualifiers: URI type: unspecified URI Qualified Code(s): J06.9 - Acute upper respiratory infection, unspecified Plan: Will start him again on empiric Abx Tx with Azithromycin QD x 5 days Can continue on Benzonatate PRN for his cough - states that he still has plenty of these at home Instructed to call if his symptoms do not respond to empiric Tx and they persist through the next week or so (8) Insomnia: Code(s): G47.00 - Insomnia, unspecified Qualifiers: Insomnia type: primary Qualified Code(s): F51.01 - Primary insomnia Plan: Sleep hygiene reinforced Is on Mirtazapine, which helps with his sleep at night somewhat Could not tolerate Trazodone in the past - states that he felt like a zombie the next day Has also tried 1/2 tablet of OTC Melatonin 10 mg - states that it also knocks him out but not as much as Trazodone did Advised that he can continue Melatonin if it helps and there should be no concerning long-term side effects from it, including habit-forming potential (9) Anxiety: Code(s): F41.9 - Anxiety disorder, unspecified Plan: Continue Lorazepam 0.5 mg QD PRN (10) Depression: Code(s): F32.9 - Major depressive disorder, single episode, unspecified Qualifiers: Depression Type: major depressive disorder Major depression recurrence: recurrent Active/Remission status: currently active Major depression episode severity: unspecified Qualified Code(s): F33.9 - Major depressive disorder, recurrent, unspecified Plan: Continue Fluoxetine 60 mg QD and Mirtazapine 15 mg Q HS (11) Obesity (BMI 30-39.9): Code(s): E66.9 - Obesity, unspecified Plan: Reinforced diet/exercise as tolerated/lose weight Plan Follow up in 3 months Orders: Orders Comprehensive Met. Panel 02/02/23 E87.5 - Hyperkalemia, N18.30 - Chronic kidney disease, stage 3 unspecified Comprehensive [place]. Panel Fast 3 Months E78.00 - Pure hypercholesterolemia, unspecified Lipid Panel 3 Months E78.00 - Pure hypercholesterolemia, unspecified TSH reflex Free T4 3 Months E78.00 - Pure hypercholesterolemia, unspecified UA CC w/rflx Micro + Cult 3 Months R30.0 - Dysuria Hemoglobin A1c 3 Months E11.9 - Type 2 diabetes mellitus without complications AMB Hemoglobin A1c 02/02/23 E11.42 - Type 2 diabetes mellitus with diabetic polyneuropathy Complete Blood Count Auto Diff 3 Months I10 - Essential (primary) hypertension Microalbumin, Random (w Creat) 3 Months E11.9 - Type 2 diabetes mellitus without complications Vitamin B12 and Folate 3 Months E53.8 - Deficiency of other specified B group vitamins Vitamin D 25-OH Total 3 Months E55.9 - Vitamin D deficiency, unspecified Referrals Endocrinology Referral E11.42 - Type 2 diabetes mellitus with diabetic polyneuropathy Medications: New azithromycin take 500 mg today (day 1), then 250 mg for 4 days (days 2-5) PO 6 tabs 0RF Coding Level of Care Code Est Pt Level 4 (79874) Diagnoses Type 2 diabetes mellitus with diabetic polyneuropathy, with long-term current use of insulin E11.42; Z79.4 Diabetes mellitus 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: with [facility] use Stage 3b chronic kidney disease N18.32 Chronic kidney disease stage 3 subtype: stage 3b (GFR 30-44) Mixed hyperlipidemia E78.2 Benign essential hypertension I10 Obstructive sleep apnea G47.33 Crohn's disease with complication, unspecified gastrointestinal tract location K50.919 Gastrointestinal tract location: unspecified location Digestive disease complication type: unspecified complication Upper respiratory tract infection, unspecified type J06.9 URI type: unspecified URI Primary insomnia F51.01 Insomnia type: primary Anxiety F41.9 Episode of recurrent major depressive disorder, unspecified depression episode severity F33.9 Depression Type: major depressive disorder Major depression recurrence: recurrent Active/Remission status: currently active Major depression episode severity: unspecified Obesity (BMI 30-39.9) E66.9 Additional Codes NOHEMY-7 Assessment Billing - NOHEMY-7 Assessment Tool: NOHEMY-7 Assessment [id number] ([id number])
== END 2023-02-02 15:04 | disposition home or self-care (01) ==
PROVIDERS: Visit Provider Internal Medicine
DX: E11.42 Type 2 diabetes mellitus with diabetic polyneuropathy (principal); Z79.4 Long term (current) use of insulin; I12.9 Hypertensive chronic kidney disease with stage 1 through stage 4 chronic kidney disease, or unspecified chronic kidney disease; N18.32 Chronic kidney disease, stage 3b; E78.2 Mixed hyperlipidemia; G47.33 Obstructive sleep apnea (adult) (pediatric); K50.919 Crohn's disease, unspecified, with unspecified complications; J06.9 Acute upper respiratory infection, unspecified; F51.01 Primary insomnia; F41.9 Anxiety disorder, unspecified; F33.9 Major depressive disorder, recurrent, unspecified; E66.9 Obesity, unspecified
CPT/HCPCS: 83036; 99214

== ENCOUNTER 2023-02-02 15:06 | Outpatient (REF) | payer MEDICARE, SELFPAY ==
[2023-02-02 17:45] LABS: Alanine Aminotransferase 15 U/L (0-40); Albumin Level 4.2 g/dL (3.5-5.0); Alkaline Phosphatase 89 U/L (39-117); Anion Gap 13 (12-20); Aspartate Amino Transferase 14 U/L (5-37); Bilirubin Total 0.4 mg/dL (0.0-1.0); Blood Urea Nitrogen 27 mg/dL (9-16); Calcium 9.6 mg/dL (8.4-10.2); Carbon Dioxide 23 mmol/L (22-29); Chloride 106 mmol/L (96-108); Estimated Glomerular Filt Rate 44; Glucose Random 225 mg/dL (60-115); Potassium 5.5 mmol/L (3.3-5.1); Sodium 136 mmol/L (135-145)
== END 2023-02-02 15:07 | disposition home or self-care (01) ==
LOC: HO.LAB 15:06
PROVIDERS: PCP Internal Medicine; Visit Provider Internal Medicine
DX: N18.30 Chronic kidney disease, stage 3 unspecified (principal); E87.5 Hyperkalemia
CPT/HCPCS: 36415; 80053

== ENCOUNTER 2023-04-27 15:06 | Outpatient (AMB) | payer MEDICARE, SELFPAY ==
[2023-04-27 15:08] VITALS: BP 140/82; PULSE 56; O2SAT 93; BMI 32.5
--- NOTE | 2023-04-27 15:08 | A.OFFPC_ITS ---
Vital Signs 04/27/23 15:08 Height 6 ft 1 in Weight 246 lb 6 oz BMI 32.5 BP 140/82 H Blood Pressure Location Lt brachial Position Sitting Pulse 56 Pulse Source Pulse Oximeter Pulse Oximetry (%) 93 Oxygen Delivery Method Room Air Intake Visit Reasons: PRE OP L Cataract 05/14/23 Parachute Panel Joiner Required: No Accompanied by: Self / Same As Patient Allergies sertraline [SERTRALINE] Allergy (Severe, Verified 02/17/24 14:01) RASH, ABD PAIN DEHYDRATION Penicillins [PENICILLINS] Allergy (Intermediate, Verified 02/17/24 14:01) RASH Medication List - Last Reconciled 04/27/23 by Marcelo Lopez MD albuterol sulfate 90 mcg/actuation (Ventolin HFA) 2 puffs inhalation Q6H PRN 30 days amlodipine 5 mg PO DAILY 90 days aspirin (Adult Low Dose Aspirin) 81 mg PO DAILY atenolol 50 mg PO DAILY blood pressure test kit-wrist As directed blood sugar diagnostic (Atbroxuch Verio test strips) As directed- in vitro 3 times a day cholecalciferol (vitamin D3) 250 mcg PO 2XW 90 days cyanocobalamin (vitamin B-12) 1,000 mcg PO DAILY 30 days fluoxetine 60 mg (3 x 20 mg) PO DAILY 30 days fluticasone propionate 50 mcg/actuation 1 spray intranasal DAILY insulin lispro (Humalog KwikPen (U-100) Insulin) Take 2 to 8 units SQ 4 times a day - with meals and at bedtime - PER SLIDING SCALE (see below for sliding scale details) Insulin as advised before meals 0-150: 0 unit 151-200: 2 units 201- 250: 4 units 251-300: 6 units 301-350: 8 units >351 call irbesartan 300 mg PO DAILY lancets (Atbroxuch Delica Lancets) As directed Lantus Solostar U-100 Insulin (insulin glargine) 70 units (0.7 mL) subcut DAILY NS metformin 1,000 mg PO BID mirtazapine 15 mg PO BEDTIME 90 days omeprazole 40 mg PO BID pen needle, diabetic (Easy Touch) 1 ea miscellaneous BID 30 days pyridoxine (vitamin B6) 50 mg PO DAILY 30 days rosuvastatin 10 mg PO DAILY 90 days sennosides (senna) 8.6 mg PO DAILY PRN 90 days sodium zirconium cyclosilicate (Lokelma) 10 grams PO ONCE thiamine HCl (vitamin B1) 100 mg PO DAILY 30 days Tobacco use date assessed: 04/27/23 Fall risk assessment: No Falls in past year Last assessed Fall Risk: 04/27/23 Dental Screening Dental Screen Date: 04/27/23 Did you have a dental visit in the last 12 months?: No Did you have a dental problem in the last 6 months where you did not have access to dental care?: No Was dental information given to patient?: No HPI PRE OP L Cataract 05/14/23 HPI Details Patient comes in today at the request of Dr. Mirtha Byrnes for a preoperative medical examination for clearance for surgery He is scheduled for cataract extraction/phacoemulsification with IOL of the left eye under MAC on 05/14/2023 Patient states that he feels okay although he feels slightly fatigued more than usual lately He denies any headaches or dizziness Denies any chest pains, no SOB No nausea/vomiting, no abdominal pain No change in bowel habits noted PFSH Medical History (Updated 02/22/24 @ 04:28 by Marcelo Lopez MD) Overweight (BMI 25.0-29.9) Type 2 diabetes mellitus with stage 3b chronic kidney disease, with long-term current use of insulin Mixed hyperlipidemia Obstructive sleep apnea Memory impairment Environmental allergies Chronic kidney disease (CKD), stage III (moderate) Prostate cancer screening H/O hyperkalemia Recurrent cough Obesity (BMI 30-39.9) Depression Anxiety Insomnia Primary osteoarthritis, left shoulder Crohn's disease GERD (gastroesophageal reflux disease) Pure hypercholesterolemia Benign essential hypertension Microalbuminuria group home (current) use of insulin Type 2 diabetes mellitus with diabetic polyneuropathy Allergic rhinitis Surgical History Hx of foot surgery (11/05/23) History of esophagogastroduodenoscopy (EGD) Hx of colonoscopy History of umbilical hernia repair Family History Father Diabetes Melanoma Mother Diabetes Hypertension Cancer Sister Diabetes Social History Household Members: None Housing: Apartment Do you presently have visiting nurse or other home services: No Alcohol intake: former Patient Tobacco Use Status: Former Tobacco user Tobacco use type: Cigarette e-Cigarette/Vaping Use: Never Used Second Hand Smoke Exposure: No service: No Current occupational status: employed Cognitive needs: No Hearing needs: No Vision needs: No Questionnaire PHQ-9 Over the last 2 weeks, how often have you been bothered by any of the following problems? 1. Little interest or pleasure in doing things: not at all 2. Feeling down, depressed, or hopeless: several days 3. Trouble falling or staying asleep, or sleeping too much: several days 4. Feeling tired or having little energy: not at all 5. Poor appetite or overeating: not at all 6. Feeling bad about yourself - or that you are a failure or have let yourself or your family down: not at all 7. Trouble concentrating on things, such as reading the newspaper or watching television: not at all 8. Moving or speaking so slowly that other people could have noticed. Or the opposite - being so fidgety or restless that you have been moving around a lot more than usual: not at all 9. Thoughts that you would be better off or of hurting yourself in some way: not at all Total score: 2 Depression Screening Interpretation: Positive Depression Screening Follow-up: Existing condition and In treatment Depression Screening Done: Yes 45298 - PHQ-9 Billing: Yes Source: Developed by Drs. Kirill Hanan, Jeimy Garcia, Bijan Milian and colleagues, with an educational rolanda from [employer]. Thrive Questionnaire Date Thrive assessed: 04/27/23 I am a: Patient What is your living situation today?: I have a steady place to live Within the past 12 months, did the food you bought not last and you didn't have the money to get more?: Never true Within the past 12 months, did you worry whether your food would run out before you got money to buy more?: Never true Do you have trouble paying for medicines?: No Do you have trouble getting transportation to medical appointments?: No Do you have trouble paying your heating and electricity bill?: No Do you have trouble taking care of your child, family member or friend?: No Do you have trouble with day-to-day activities such as bathing, preparing meals, shopping, managing finances, etc.?: No Are you currently unemployed and looking for a job?: No Are you interested in more education?: No Please select the resources that you would like help with: None Currently or been in a relationship where the following occur: no concerns reported AUDIT C Alcohol Use Questionnaire (AUDIT-C) 1. How often do you have a drink containing alcohol?: Monthly or less 2. How many drinks containing alcohol do you have on a typical day when you are drinking?: 1 or 2 3. How often do you have six or more drinks on one occasion?: Never Total Score: 1 Score Reviewed/Action Taken: Yes NOHEMY-7 AMB Questionnaire NOHEMY-7 Date NOHEMY - 7 assessed: 04/27/23 Feeling nervous, anxious, or on edge: 1 = Several days Not being able to stop or control worryin = Not at all Worrying too much about different things: 0 = Not at all Trouble relaxin = Not at all Being so restless that it is hard to sit still: 0 = Not at all Becoming easily annoyed or irritable: 0 = Not at all Feeling afraid as if something awful might happen: 0 = Not at all Total NOHEMY-7 score (0-4 normal; 5-9 mild; 10-14 moderate; 15-21 severe): 1 Source: Developed by Drs. Kirill Hanna, Jeimy Garcia, Bijan Milian and colleagues, with an educational rolanda from [employer]. NOHEMY-7 Assessment Billing NOHEMY-7 Assessment Tool: NOHEMY-7 Assessment 71620 Review of Systems Const Denies chills, Reports fatigue, Denies fever(s) and Denies headache(s) Eyes Reports blurry vision (especially in the left eye) ENT Denies dysphagia, Denies dizziness, Denies otalgia, Denies headache(s), Denies neck pain, Denies odynophagia and Denies sore throat Card Denies chest pain, Denies irregular heart rhythm, Denies palpitations and Denies dyspnea Resp Denies chest congestion, Denies cough and Denies dyspnea GI Denies abdominal pain, Denies constipation, Denies dysphagia, Denies heartburn, Denies diarrhea, Denies nausea, Denies odynophagia and Denies vomiting Denies difficulty urinating, Denies dysuria, Reports nocturia and Reports urinary frequency Musc Reports back pain (mild), Denies arthralgias and Denies neck pain Skin/Breast Denies rash Neuro Denies dizziness, Denies headache(s) and Denies paresthesias Endo Reports fatigue and Denies palpitations Physical exam (Primary Care) Vital Signs: Last Vital Signs Pulse 56 04/27/23 15:08 BP 140/82 H 04/27/23 15:08 Pulse Ox 93 04/27/23 15:08 Oxygen Delivery Method Room Air 04/27/23 15:08 BMI result Body Mass Index 32.5 Tobacco/Smoking Status: Tobacco use Status Tobacco use date assessed 04/27/23 04/27/23 15:11 Patient Tobacco Use Status Former Tobacco user 04/27/23 15:10 e-Cigarette/Vaping Use Never Used 04/27/23 15:10 PHQ-9: PHQ-9 Score PHQ-9: Total score 2 04/27/23 15:58 Depression Screening Interpretation: Positive Depression Screening Follow-up: Existing condition and In treatment Thrive Assessment: Date of Thrive Assessment Date Thrive assessed 04/27/23 04/27/23 15:11 Currently or been in a relationship where the following occur: no concerns reported Const General: no acute distress and alert HENMT Ears: TM's normal bilaterally and EAC's normal Throat: Yes posterior oropharynx normal and Yes tonsils normal (no TP congestion) Neck Neck: Yes no lymphadenopathy and Yes supple Thyroid: Thyroid normal Resp Auscultation: clear to auscultation bilaterally, no rales and no wheezes Cardio Rate: regular rate Rhythm: regular rhythm Heart sounds: no murmurs GI Palpation (GI): Soft to palpation and nontender Auscultation: normal bowel sounds General: Yes no CVA tenderness Back/Spine/Pelvis Back: no CVA tenderness Thoracic/Lumbar Spine: lumbar spinal tenderness (mild) Skin Rashes: no rashes Extrem General: Yes no clubbing, cyanosis or edema Results AMB Hemoglobin A1c AMB Hemoglobin A1c 11.6 % Last Edit by JASE Rojsa on 04/27/23 15:59 Results Reviewed Results Reviewed: Laboratory Last Values Hgb A1c (Clinic) 11.6 % (4.0-6.0) H 04/27/23 15:57 Assessment and Plan Assessment & Plan (1) Preoperative examination: Code(s): Z01.818 - Encounter for other preprocedural examination Plan: Patient is currently not medically optimized for cataract surgery due to his poorly-controlled diabetes Have discussed with him that going for surgery when his diabetes is poorly- controlled increases his risks for perioperative and post-op complications, including infections and poor surgical outcome I therefore cannot clear him for cataract surgery at this time and advised him that we will inform his procurement representative right away so they can go ahead and cancel his upcoming surgery for now (2) Cataract, left eye: Code(s): H26.9 - Unspecified cataract Qualifiers: Age-related cataract type: unspecified Cataract type: age-related Qualified Code(s): H25.9 - Unspecified age-related cataract Plan: He is scheduled for cataract extraction/phacoemulsification with IOL of the left eye under MAC on 05/14/[address] Mirtha Byrnes (3) Type 2 diabetes mellitus with stage 3b chronic kidney disease, with long- term current use of insulin: Code(s): E11.22 - Type 2 diabetes mellitus with diabetic chronic kidney disease; N18.32 - Chronic kidney disease, stage 3b; Z79.4 - group home (current) use of insulin Plan: His in-office HgbA1c today is at 11.6% - goal is at least <7.0% Reinforced diabetic diet Continue Lantus Solostar 70 units Q HS and Humalog Kwikpen 2 to 8 units SQ 4 times a day (with meals and at bedtime) per sliding scale and Metformin 1000 mg BID We have also started him on Trulicity in the past but he could not afford the co-pay for his Rx Have advised patient that he cannot be cleared for cataract surgery at this time due to poorly-controlled DM - have advised him that his HgbA1c has to be at least 8.2% or lower for him to be able to be cleared for surgery We have referred him to [facility] Endocr[facility]ology months ago but patient states that he was never contacted for an appointment after all this time (4) Mixed hyperlipidemia: Code(s): E78.2 - Mixed hyperlipidemia Plan: Reinforced low cholesterol diet Continue Rosuvastatin 10 mg QD; had some unrecalled problems with Atorvastatin in the past but is tolerating Rosuvastatin with no issues (5) Benign essential hypertension: Code(s): I10 - Essential (primary) hypertension Plan: Reinforced low sodium diet - goal is systolic BP of at least 120 to 130 mm or less Continue Irbesartan 300 mg QD, Amlodipine 5 mg QD and Atenolol 50 mg QD He also used to also take HCTZ 12.5 mg QD in the past but this was discontinued at some point for unclear reasons; it is possible patient self-discontinued Rx inadvertently but as his BP is reasonably controlled at present, will hold off on starting him back on this Rx Patient is reminded to monitor his blood pressure regularly (6) Obstructive sleep apnea: Code(s): G47.33 - Obstructive sleep apnea (adult) (pediatric) Plan: He was diagnosed with HERSON last year and is now on CPAP therapy when he sleeps at night Follow up with Sleep Medicine as scheduled (7) Crohn's disease: Code(s): K50.90 - Crohn's disease, unspecified, without complications Qualifiers: Gastrointestinal tract location: unspecified location Digestive disease complication type: unspecified complication Qualified Code(s): K50.919 - Crohn's disease, unspecified, with unspecified complications Plan: Currently stable with no recent flare ups He was on Lialda 1.2 mg 2 tablets daily in the past but he stopped taking it a while back as he could not afford the cost of the Rx Follow up with GI (Dr. Rush) as scheduled (8) Constipation: Code(s): K59.00 - Constipation, unspecified Qualifiers: Constipation type: unspecified constipation type Qualified Code(s): K59.00 - Constipation, unspecified Plan: Reinforced increased oral fluids and dietary fiber Continue Senna 8.6 mg 1 tablet Q HS PRN (9) Insomnia: Code(s): G47.00 - Insomnia, unspecified Qualifiers: Insomnia type: primary Qualified Code(s): F51.01 - Primary insomnia Plan: Sleep hygiene reinforced Is on Mirtazapine, which helps with his sleep at night He could not tolerate Trazodone in the past - states that he felt like a zombie the next day Has also tried 1/2 tablet of OTC Melatonin 10 mg - states that it also knocks him out but not as much as Trazodone did Advised that he can continue Melatonin if it helps and there should be no co ncerning long-term side effects from it, including habit-forming potential (10) Anxiety: Code(s): F41.9 - Anxiety disorder, unspecified Plan: Continue Lorazepam 0.5 mg QD PRN (11) Depression: Code(s): F32.9 - Major depressive disorder, single episode, unspecified Qualifiers: Depression Type: major depressive disorder Major depression recurrence: recurrent Active/Remission status: currently active Major depression episode severity: unspecified Qualified Code(s): F33.9 - Major depressive disorder, recurrent, unspecified Plan: Continue Fluoxetine 60 mg QD and Mirtazapine 15 mg Q HS Follow up with psychiatry as scheduled (12) Obesity (BMI 30-39.9): Code(s): E66.9 - Obesity, unspecified Plan: Reinforced diet/exercise as tolerated/lose weight Plan Patient is currently NOT optimized for surgery primarily due to his poorly- controlled DM and we cannot clear him for cataract surgery at this time Follow up in 2 months Orders: Orders AMB Hemoglobin A1c 04/27/23 Z13.9 - Encounter for screening, unspecified Coding Level of Care Code Est Pt Level 4 (80131) Diagnoses Preoperative examination Z01.818 Senile cataract of left eye, unspecified age-related cataract type H25.9 Age-related cataract type: unspecified Cataract type: age-related Type 2 diabetes mellitus with stage 3b chronic kidney disease, with long-term current use of insulin E11.22; N18.32; Z79.4 Mixed hyperlipidemia E78.2 Benign essential hypertension I10 Obstructive sleep apnea G47.33 Crohn's disease with complication, unspecified gastrointestinal tract location K50.919 Gastrointestinal tract location: unspecified location Digestive disease complication type: unspecified complication Constipation, unspecified constipation type K59.00 Constipation type: unspecified constipation type Primary insomnia F51.01 Insomnia type: primary Anxiety F41.9 Episode of recurrent major depressive disorder, unspecified depression episode severity F33.9 Depression Type: major depressive disorder Major depression recurrence: recurrent Active/Remission status: currently active Major depression episode severity: unspecified Obesity (BMI 30-39.9) E66.9 Additional Codes NOHEMY-7 Assessment Billing - NOHEMY-7 Assessment Tool: NOHEMY-7 Assessment [id number] ([id number])
== END 2023-04-27 16:32 | disposition home or self-care (01) ==
PROVIDERS: PCP Internal Medicine; Visit Provider Internal Medicine
DX: I12.9 Hypertensive chronic kidney disease with stage 1 through stage 4 chronic kidney disease, or unspecified chronic kidney disease (principal); E11.22 Type 2 diabetes mellitus with diabetic chronic kidney disease; N18.32 Chronic kidney disease, stage 3b; K50.919 Crohn's disease, unspecified, with unspecified complications; Z79.4 Long term (current) use of insulin; F33.9 Major depressive disorder, recurrent, unspecified; Z01.818 Encounter for other preprocedural examination; H25.9 Unspecified age-related cataract; E78.2 Mixed hyperlipidemia; G47.33 Obstructive sleep apnea (adult) (pediatric); K59.00 Constipation, unspecified; F51.01 Primary insomnia
CPT/HCPCS: 83036; 99214

== ENCOUNTER 2023-06-22 15:26 | Outpatient (AMB) | payer MEDICARE, SELFPAY ==
[2023-06-22 15:31] VITALS: BP 112/78; PULSE 49; O2SAT 95; BMI 32.1
--- NOTE | 2023-06-22 15:31 | MHC.PC.OV ---
Vital Signs 06/22/23 15:31 Height 6 ft 1 in Weight 243 lb 2 oz BMI 32.1 BP 112/78 Blood Pressure Location Lt brachial Position Sitting Pulse 49 L Pulse Source Pulse Oximeter Pulse Oximetry (%) 95 Oxygen Delivery Method Room Air Intake Visit Reasons: 2 month f/u Associate Curator Required: No Accompanied by: Self / Same As Patient Allergies sertraline [SERTRALINE] Allergy (Severe, Verified 02/17/24 14:01) RASH, ABD PAIN DEHYDRATION Penicillins [PENICILLINS] Allergy (Intermediate, Verified 02/17/24 14:01) RASH Medication List - Last Reconciled 06/23/23 by Marcelo Lopez MD albuterol sulfate 90 mcg/actuation (Ventolin HFA) 2 puffs inhalation Q6H PRN 30 days amlodipine 5 mg PO DAILY 90 days aspirin (Adult Low Dose Aspirin) 81 mg PO DAILY atenolol 50 mg PO DAILY blood pressure test kit-wrist As directed blood sugar diagnostic (VipVenta Verio test strips) As directed- in vitro 3 times a day cholecalciferol (vitamin D3) 250 mcg PO 2XW 90 days cyanocobalamin (vitamin B-12) 1,000 mcg PO DAILY 30 days fluoxetine 60 mg (3 x 20 mg) PO DAILY 30 days fluticasone propionate 50 mcg/actuation 1 spray intranasal DAILY insulin lispro (Humalog KwikPen (U-100) Insulin) Take 2 to 8 units SQ 4 times a day - with meals and at bedtime - PER SLIDING SCALE (see below for sliding scale details) Insulin as advised before meals 0-150: 0 unit 151-200: 2 units 201-250: 4 units 251-300: 6 units 301-350: 8 units >351 call irbesartan 300 mg PO DAILY lancets ([employer] Delica Lancets) As directed Lantus Solostar U-100 Insulin (insulin glargine) 70 units (0.7 mL) subcut DAILY NS metformin 1,000 mg PO BID mirtazapine 15 mg PO BEDTIME 90 days omeprazole 40 mg PO BID pen needle, diabetic (Easy Touch) 1 ea miscellaneous BID 30 days pyridoxine (vitamin B6) 50 mg PO DAILY 30 days rosuvastatin 10 mg PO DAILY 90 days sennosides (senna) 8.6 mg PO DAILY PRN 90 days sodium zirconium cyclosilicate (Lokelma) 10 grams PO ONCE thiamine HCl (vitamin B1) 100 mg PO DAILY 30 days Tobacco use date assessed: 06/22/23 Fall risk assessment: No Falls in past year Last assessed Fall Risk: 06/22/23 Dental Screening Dental Screen Date: 06/22/23 Did you have a dental visit in the last 12 months?: No Did you have a dental problem in the last 6 months where you did not have access to dental care?: No Was dental information given to patient?: No HPI 2 month f/u HPI Details Patient comes in today for his follow up visit Was last seen a couple of months ago for preop exam but he was not cleared for cataract surgery then due to his uncontrolled diabetes States that he currently feels okay and thinks that his diabetes has been under better control lately He denies any headaches or dizziness Denies any chest pains, no increased SOB No nausea/vomiting, no abdominal pain No change in bowel habits noted [facility] Medical History (Updated 02/22/24 @ 04:06 by Marcelo Lopez MD) Overweight (BMI 25.0-29.9) Type 2 diabetes mellitus with stage 3b chronic kidney disease, with long-term current use of insulin Mixed hyperlipidemia Obstructive sleep apnea Memory impairment Environmental allergies Chronic kidney disease (CKD), stage III (moderate) Prostate cancer screening H/O hyperkalemia Recurrent cough Obesity (BMI 30-39.9) Depression Anxiety Insomnia Primary osteoarthritis, left shoulder Crohn's disease GERD (gastroesophageal reflux disease) Pure hypercholesterolemia Benign essential hypertension Microalbuminuria skilled nursing (current) use of insulin Type 2 diabetes mellitus with diabetic polyneuropathy Allergic rhinitis Surgical History Hx of foot surgery (11/05/23) History of esophagogastroduodenoscopy (EGD) Hx of colonoscopy History of umbilical hernia repair Family History Father Diabetes Melanoma Mother Diabetes Hypertension Cancer Sister Diabetes Social History Household Members: None Housing: Apartment Do you presently have visiting nurse or other home services: No Alcohol intake: former Patient Tobacco Use Status: Former Tobacco user Tobacco use type: Cigarette e-Cigarette/Vaping Use: Never Used Second Hand Smoke Exposure: No service: No Current occupational status: employed Cognitive needs: No Hearing needs: No Vision needs: No Questionnaire PHQ-9 Over the last 2 weeks, how often have you been bothered by any of the following problems? 1. Little interest or pleasure in doing things: not at all 2. Feeling down, depressed, or hopeless: several days 3. Trouble falling or staying asleep, or sleeping too much: several days 4. Feeling tired or having little energy: not at all 5. Poor appetite or overeating: not at all 6. Feeling bad about yourself - or that you are a failure or have let yourself or your family down: not at all 7. Trouble concentrating on things, such as reading the newspaper or watching television: not at all 8. Moving or speaking so slowly that other people could have noticed. Or the opposite - being so fidgety or restless that you have been moving around a lot more than usual: not at all 9. Thoughts that you would be better off or of hurting yourself in some way: not at all Total score: 2 Depression Screening Interpretation: Positive Depression Screening Follow-up: Existing condition and In treatment Depression Screening Done: Yes 79024 - PHQ-9 Billing: Yes Source: Developed by Drs. Kirill Hanna, Jeimy Garcia, Bijan Milian and colleagues, with an educational rolanda from [employer]. Thrive Questionnaire Date Thrive assessed: 06/22/23 I am a: Patient What is your living situation today?: I have a steady place to live Within the past 12 months, did the food you bought not last and you didn't have the money to get more?: Never true Within the past 12 months, did you worry whether your food would run out before you got money to buy more?: Never true Do you have trouble paying for medicines?: No Do you have trouble getting transportation to medical appointments?: No Do you have trouble paying your heating and electricity bill?: No Do you have trouble taking care of your child, family member or friend?: No Do you have trouble with day-to-day activities such as bathing, preparing meals, shopping, managing finances, etc.?: No Are you currently unemployed and looking for a job?: No Are you interested in more education?: No Please select the resources that you would like help with: None Currently or been in a relationship where the following occur: no concerns reported AUDIT C Alcohol Use Questionnaire (AUDIT-C) 1. How often do you have a drink containing alcohol?: Monthly or less 2. How many drinks containing alcohol do you have on a typical day when you are drinking?: 1 or 2 3. How often do you have six or more drinks on one occasion?: Never Total Score: 1 Score Reviewed/Action Taken: Yes NOHEMY-7 AMB Questionnaire NOHEMY-7 Date NOHEMY - 7 assessed: 06/22/23 Feeling nervous, anxious, or on edge: 1 = Several days Not being able to stop or control worryin = Not at all Worrying too much about different things: 0 = Not at all Trouble relaxin = Not at all Being so restless that it is hard to sit still: 0 = Not at all Becoming easily annoyed or irritable: 0 = Not at all Feeling afraid as if something awful might happen: 0 = Not at all Total NOHEMY-7 score (0-4 normal; 5-9 mild; 10-14 moderate; 15-21 severe): 1 Source: Developed by Drs. Kirill Hanna, Jeimy Garcia, Bijan Milian and colleagues, with an educational rolanda from [employer]. NOHEMY-7 Assessment Billing NOHEMY-7 Assessment Tool: NOHEMY-7 Assessment 23040 Review of Systems Const Denies chills, Denies fatigue, Denies fever(s) and Denies headache(s) ENT Denies dysphagia, Denies dizziness, Denies otalgia, Denies headache(s), Denies neck pain, Denies odynophagia and Denies sore throat Card Denies chest pain, Denies irregular heart rhythm, Denies palpitations and Denies dyspnea Resp Denies chest congestion, Denies cough and Denies dyspnea GI Denies abdominal pain, Denies constipation, Denies dysphagia, Denies heartburn, Denies diarrhea, Denies nausea, Denies odynophagia and Denies vomiting Denies difficulty urinating, Denies dysuria, Reports nocturia and Reports urinary frequency Musc Denies back pain, Denies arthralgias and Denies neck pain Skin/Breast Denies rash Neuro Denies dizziness, Denies headache(s) and Denies paresthesias Endo Denies fatigue and Denies palpitations Physical exam (Primary Care) Vital Signs: Last Vital Signs Pulse 49 L 06/22/23 15:31 BP 112/78 06/22/23 15:31 Pulse Ox 95 06/22/23 15:31 Oxygen Delivery Method Room Air 06/22/23 15:31 BMI result Body Mass Index 32.1 Tobacco/Smoking Status: Tobacco use Status Tobacco use date assessed 06/22/23 06/22/23 15:33 Patient Tobacco Use Status Former Tobacco user 06/22/23 15:33 e-Cigarette/Vaping Use Never Used 06/22/23 15:33 PHQ-9: PHQ-9 Score PHQ-9: Total score 2 06/23/23 05:51 Depression Screening Interpretation: Positive Depression Screening Follow-up: Existing condition and In treatment Thrive Assessment: Date of Thrive Assessment Date Thrive assessed 06/22/23 06/22/23 15:33 Currently or been in a relationship where the following occur: no concerns reported Const General: no acute distress and alert HENMT Ears: TM's normal bilaterally and EAC's normal Throat: Yes posterior oropharynx normal and Yes tonsils normal (no TP congestion) Neck Neck: Yes no lymphadenopathy and Yes supple Thyroid: Thyroid normal Resp Auscultation: clear to auscultation bilaterally, no rales and no wheezes Cardio Rate: regular rate Rhythm: regular rhythm Heart sounds: no murmurs GI Palpation (GI): Soft to palpation and nontender Auscultation: normal bowel sounds General: Yes no CVA tenderness Back/Spine/Pelvis Back: no CVA tenderness Thoracic/Lumbar Spine: lumbar spinal tenderness (mild) Skin Rashes: no rashes Extrem General: Yes no clubbing, cyanosis or edema Results AMB Hemoglobin A1c AMB Hemoglobin A1c 10.9 % Last Edit by JASE Rojas on 06/22/23 16:18 Results Reviewed Results Reviewed: Laboratory Last Values Hgb A1c (Clinic) 10.9 % (4.0-6.0) H 06/22/23 16:17 Assessment and Plan Assessment & Plan (1) Type 2 diabetes mellitus with stage 3b chronic kidney disease, with long-term current use of insulin: Code(s): E11.22 - Type 2 diabetes mellitus with diabetic chronic kidney disease; N18.32 - Chronic kidney disease, stage 3b; 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 Plan: His in-office HgbA1c today is at 10.9% (was at 11.6% a couple of months ago) - goal is at least <7.0% Reinforced diabetic diet Continue Lantus Solostar 70 units Q HS and Humalog Kwikpen 2 to 8 units SQ 4 times a day (with meals and at bedtime) per sliding scale and Metformin 1000 mg BID We have also started him on Trulicity in the past but he could not afford the co-pay for his Rx He was not cleared for cataract surgery a couple of months ago due to poorly-controlled DM - have advised him that his HgbA1c has to be at least 8.2% or lower for him to be able to be cleared for surgery We have referred him to [facility] months ago but patient states that he was never contacted for an appointment after all this time (2) Mixed hyperlipidemia: Code(s): E78.2 - Mixed hyperlipidemia Plan: He was not able to get his follow up labs done recently Reinforced low cholesterol diet Continue Rosuvastatin 10 mg QD; had some unrecalled problems with Atorvastatin in the past but is tolerating Rosuvastatin with no issues Will recheck his labs and fasting lipids again in 3 months for follow up (3) Benign essential hypertension: Code(s): I10 - Essential (primary) hypertension Plan: Reinforced low sodium diet - goal is systolic BP of at least 120 to 130 mm or less Continue Irbesartan 300 mg QD, Amlodipine 5 mg QD and Atenolol 50 mg QD He also used to also take HCTZ 12.5 mg QD in the past but this was discontinued at some point for unclear reasons; it is possible patient self-discontinued Rx inadvertently but as his BP is reasonably controlled at present, will hold off on starting him back on this Rx Patient is reminded to monitor his blood pressure regularly (4) Obstructive sleep apnea: Code(s): G47.33 - Obstructive sleep apnea (adult) (pediatric) Plan: He was diagnosed with HERSON last year and is now on CPAP therapy when he sleeps at night Follow up with Sleep Medicine as scheduled (5) Crohn's disease: Code(s): K50.90 - Crohn's disease, unspecified, without complications Qualifiers: Gastrointestinal tract location: unspecified location Digestive disease complication type: unspecified complication Qualified Code(s): K50.919 - Crohn's disease, unspecified, with unspecified complications Plan: Currently stable with no recent flare ups He was on Lialda 1.2 mg 2 tablets daily in the past but he stopped taking it a while back as he could not afford the cost of the Rx Follow up with GI (Dr. Rush) as scheduled (6) Constipation: Code(s): K59.00 - Constipation, unspecified Qualifiers: Constipation type: unspecified constipation type Qualified Code(s): K59.00 - Constipation, unspecified Plan: Reinforced increased oral fluids and dietary fiber Continue Senna 8.6 mg 1 tablet Q HS PRN (7) Insomnia: Code(s): G47.00 - Insomnia, unspecified Qualifiers: Insomnia type: primary Qualified Code(s): F51.01 - Primary insomnia Plan: Sleep hygiene reinforced Is on Mirtazapine, which helps with his sleep at night He could not tolerate Trazodone in the past - states that he felt like a zombie the next day Has also tried 1/2 tablet of OTC Melatonin 10 mg - states that it also knocks him out but not as much as Trazodone did Advised that he can continue Melatonin if it helps and there should be no concerning long-term side effects from it, including habit-forming potential (8) Anxiety: Code(s): F41.9 - Anxiety disorder, unspecified Plan: Continue Lorazepam 0.5 mg QD PRN (9) Depression: Code(s): F32.9 - Major depressive disorder, single episode, unspecified Qualifiers: Depression Type: major depressive disorder Major depression recurrence: recurrent Active/Remission status: currently active Major depression episode severity: unspecified Qualified Code(s): F33.9 - Major depressive disorder, recurrent, unspecified Plan: Continue Fluoxetine 60 mg QD and Mirtazapine 15 mg Q HS Follow up with psychiatry as scheduled (10) Obesity (BMI 30-39.9): Code(s): E66.9 - Obesity, unspecified Plan: Reinforced diet/exercise as tolerated/lose weight Plan To return as scheduled in September 2023 for his annual physical examination Orders: Orders Hemoglobin A1c 3 Months E11.9 - Type 2 diabetes mellitus without complications Complete Blood Count Auto Diff 3 Months I10 - Essential (primary) hypertension Comprehensive [place]. Panel Fast 3 Months E78.00 - Pure hypercholesterolemia, unspecified UA CC w/rflx Micro + Cult 3 Months R30.0 - Dysuria Microalbumin, Random (w Creat) 3 Months E11.9 - Type 2 diabetes mellitus without complications Lipid Panel 3 Months E78.00 - Pure hypercholesterolemia, unspecified Vitamin D 25-OH Total 3 Months E55.9 - Vitamin D deficiency, unspecified AMB Hemoglobin A1c 06/22/23 Z13.9 - Encounter for screening, unspecified TSH reflex Free T4 3 Months E78.00 - Pure hypercholesterolemia, unspecified Coding Level of Care Code Est Pt Level 4 (70580) Diagnoses Type 2 diabetes mellitus with stage 3b chronic kidney disease, with long-term current use of insulin E11.22; N18.32; Z79.4 Mixed hyperlipidemia E78.2 Benign essential hypertension I10 Obstructive sleep apnea G47.33 Crohn's disease with complication, unspecified gastrointestinal tract location K50.919 Gastrointestinal tract location: unspecified location Digestive disease complication type: unspecified complication Constipation, unspecified constipation type K59.00 Constipation type: unspecified constipation type Primary insomnia F51.01 Insomnia type: primary Anxiety F41.9 Episode of recurrent major depressive disorder, unspecified depression episode severity F33.9 Depression Type: major depressive disorder Major depression recurrence: recurrent Active/Remission status: currently active Major depression episode severity: unspecified Obesity (BMI 30-39.9) E66.9 Additional Codes NOHEMY-7 Assessment Billing - ONHEMY-7 Assessment Tool: NOHEMY-7 Assessment 04544 ([id number])
== END 2023-06-22 16:39 | disposition home or self-care (01) ==
PROVIDERS: PCP Internal Medicine; Visit Provider Internal Medicine
DX: E11.22 Type 2 diabetes mellitus with diabetic chronic kidney disease (principal); N18.32 Chronic kidney disease, stage 3b; Z79.4 Long term (current) use of insulin; K50.919 Crohn's disease, unspecified, with unspecified complications; F33.9 Major depressive disorder, recurrent, unspecified; E78.2 Mixed hyperlipidemia; I10 Essential (primary) hypertension; G47.33 Obstructive sleep apnea (adult) (pediatric); K59.00 Constipation, unspecified; F51.01 Primary insomnia; F41.9 Anxiety disorder, unspecified; E66.9 Obesity, unspecified
CPT/HCPCS: 83036; 99214

== ENCOUNTER 2023-09-07 09:56 | Outpatient (REF) | payer MEDICARE, SELFPAY ==
--- NOTE | ~2023-09-07 | XR_ITS ---
EXAMINATION: XR SHOULDER, LEFT CLINICAL INFORMATION: Pain. COMPARISON: Radiograph left shoulder 06/07/2018. TECHNIQUE: Three views of the left shoulder. FINDINGS: No fracture or subluxation. Mild to moderate degenerative osteoarthritis of the acromioclavicular and glenohumeral joints. No osseous erosions. No unusual soft tissue calcifications. Visualized left-sided ribs and left lung are within normal limits. XR/XR shoulder LT min 2V IMPRESSION: 1. No acute fracture or subluxation. 2. Mild to moderate degenerative osteoarthritis of the left shoulder.
== END 2023-09-07 09:57 | disposition home or self-care (01) ==
LOC: HO.HOSX 09:56
PROVIDERS: Visit Provider Orthopaedic Surgery
DX: M75.42 Impingement syndrome of left shoulder (principal); E11.65 Type 2 diabetes mellitus with hyperglycemia; Z79.4 Long term (current) use of insulin
CPT/HCPCS: 20610; 73030; 99202; J0665; J1100

== ENCOUNTER 2023-09-07 10:32 | Outpatient (AMB) | payer MEDICARE, SELFPAY ==
--- NOTE | 2023-09-07 10:44 | A.OFFVIS_ITS ---
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 Pateint reports that he has had ongoing shoulder pain for about 4-5 months. His pain is increased with behind the back and above shoulder georges and reaching. Denies numbness and tingling. Hx of cortisone injections which has been helpful. 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 This has been ongoing shoulder pain for about 4-5 months. His pain is increased with behind the back and reaching. Denies numbness and tingling. Hx of cortisone injections which has been helpful.Denies injury. 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 Type 2 diabetes mellitus with diabetic polyneuropathy Allergic rhinitis Surgical History History of esophagogastroduodenoscopy (EGD) Hx of colonoscopy History of umbilical hernia repair Family History Father Diabetes Melanoma Mother Diabetes Hypertension Cancer Sister Diabetes Social History Housing: Apartment Alcohol intake: former Patient Tobacco Use Status: Former Tobacco user Quit Date: 3 months ago e-Cigarette/Vaping Use: Never Used Second Hand Smoke Exposure: No service: No Current occupational status: employed Cognitive needs: No Hearing needs: No Vision needs: No Physical Exam Vital Signs: BMI result Body Mass Index 32.1 Extrem Other: Left shoulder with + Hawkin's/Neer Pain in mid arc of abduction Negative emtpy can Negative lift off 45/90/130/s1 Office Procedures Joint Injection/Drain Joint Injection/Drain Details: Injected 1 mL of Decadron and 3 mL 1% lidocaine and 3 mL of 0.25% Marcaine. Site was prepped using aseptic technique. Patient tolerated the procedure well. Primary Site: left shoulder Approach Used: posterolateral Coding - Large joint Procedure code (CPT) selection complete Results Reviewed Results Reviewed: I personally reviewed relevant radiographs. 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 Injected shoulder. PT if pain persists. Orders: Orders XR shoulder LT min 2V 09/07/23 M25.519 - Pain in unspecified shoulder Coding Level of Care Code New Pt Level 4 (24286) Diagnoses Diabetes mellitus with hyperglycemia, with long-term current use of insulin E11.65; Z79.4 Impingement syndrome, shoulder, left M75.42 CPT Codes Coding - Large joint: - Large joint ([id number])
[2023-09-07 11:01] VITALS: BMI 32.1
== END 2023-09-07 11:32 | disposition home or self-care (01) ==
PROVIDERS: PCP Internal Medicine; Visit Provider Orthopaedic Surgery
DX: M75.42 Impingement syndrome of left shoulder (principal); E11.65 Type 2 diabetes mellitus with hyperglycemia; Z79.4 Long term (current) use of insulin
CPT/HCPCS: 20610; 99203

== ENCOUNTER 2023-10-06 12:49 | Outpatient (AMB) | payer MEDICARE, SELFPAY ==
[2023-10-06 13:12] VITALS: BP 126/78; PULSE 47; O2SAT 97; BMI 32.7
--- NOTE | 2023-10-06 13:12 | MHC.PC.OV ---
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 Flexible Leads Required: No Car Shunter: Not Required per policy Accompanied by: Self / Same As Patient Allergies sertraline [SERTRALINE] Allergy (Severe, Verified 10/06/23 13:56) RASH, ABD PAIN DEHYDRATION Penicillins [PENICILLINS] Allergy (Intermediate, Verified 10/06/23 13:56) RASH Medication List - Last Reconciled 10/06/23 by Marcelo Lopez MD albuterol sulfate 90 mcg/actuation (Ventolin HFA) 2 puffs inhalation Q6H PRN 30 days amlodipine 5 mg PO DAILY 90 days aspirin (Adult Low Dose Aspirin) 81 mg PO DAILY atenolol 50 mg PO DAILY blood pressure test kit-wrist As directed blood sugar diagnostic ([employer] Verio test strips) As directed- in vitro 3 times a day blood-glucose meter,continuous ([employer] G6 Advertising Production Manager) As directed blood-glucose sensor ([employer] G6 Sensor device) As directed blood-glucose transmitter ([employer] G6 Transmitter device) test blood sugars three times daily cholecalciferol (vitamin D3) 250 mcg PO 2XW 90 days colchicine 0.6 mg PO BID 3 days cyanocobalamin (vitamin B-12) 1,000 mcg PO DAILY 30 days fluoxetine 60 mg (3 x 20 mg) PO DAILY 30 days fluticasone propionate 50 mcg/actuation 1 spray intranasal DAILY insulin lispro (Humalog KwikPen (U-100) Insulin) Take 2 to 8 units SQ 4 times a day - with meals and at bedtime - PER SLIDING SCALE (see below for sliding scale details) Insulin as advised before meals 0-150: 0 unit 151-200: 2 units 201-250: 4 units 251-300: 6 units 301-350: 8 units >351 call irbesartan 300 mg PO DAILY lancets ([employer] Delica Lancets) As directed Lantus Solostar U-100 Insulin (insulin glargine) 70 units (0.7 mL) subcut DAILY NS metformin 1,000 mg PO BID mirtazapine 15 mg PO BEDTIME 90 days omeprazole 40 mg PO BID pen needle, diabetic (Easy Touch) 1 ea miscellaneous BID 30 days pyridoxine (vitamin B6) 50 mg PO DAILY 30 days rosuvastatin 10 mg PO DAILY 90 days sennosides (senna) 8.6 mg PO DAILY PRN 90 days sodium zirconium cyclosilicate (Lokelma) 10 grams PO ONCE thiamine HCl (vitamin B1) 100 mg PO DAILY 30 days Tobacco use date assessed: 06/22/23 Fall risk assessment: No Falls in past year Last assessed Fall Risk: 10/06/23 Dental Screening Dental Screen Date: 06/22/23 HPI Annual Exam HPI Details Patient comes in today for his annual physical examination States that he feels okay He denies any headaches or dizziness Denies any chest pains, no SOB No nausea/vomiting, no abdominal pain States that he has been feeling more constipated than usual lately despite his Senna Rx He denies any acute urinary symptoms He was not able to get his follow up labs done prior to coming in today - states that he has not eaten yet today and can go and get them done as soon as he leaves the office Had his screening colonoscopy last done in 04/2021 - was recommended by Dr. Rush to get a repeat colonoscopy in 5 years due to his Crohn's disease [facility] Medical History (Updated 10/06/23 @ 16:18 by Marcelo Lopez MD) Type 2 diabetes mellitus with stage 3b chronic kidney disease, with long-term current use of insulin Mixed hyperlipidemia Obstructive sleep apnea Memory impairment Environmental allergies Chronic kidney disease (CKD), stage III (moderate) Prostate cancer screening H/O hyperkalemia Recurrent cough Obesity (BMI 30-39.9) Depression Anxiety Insomnia Primary osteoarthritis, left shoulder Crohn's disease GERD (gastroesophageal reflux disease) Pure hypercholesterolemia Benign essential hypertension 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 Type 2 diabetes mellitus with diabetic polyneuropathy Allergic rhinitis Surgical History History of esophagogastroduodenoscopy (EGD) Hx of colonoscopy History of umbilical hernia repair Family History Father Diabetes Melanoma Mother Diabetes Hypertension Cancer Sister Diabetes Social History Housing: Apartment Alcohol intake: former Patient Tobacco Use Status: Former Tobacco user Quit Date: 3 months ago e-Cigarette/Vaping Use: Never Used Second Hand Smoke Exposure: No service: No Current occupational status: employed Cognitive needs: No Hearing needs: No Vision needs: No Questionnaire PHQ-9 Over the last 2 weeks, how often have you been bothered by any of the following problems? 1. Little interest or pleasure in doing things: not at all 2. Feeling down, depressed, or hopeless: several days 3. Trouble falling or staying asleep, or sleeping too much: several days 4. Feeling tired or having little energy: not at all 5. Poor appetite or overeating: not at all 6. Feeling bad about yourself - or that you are a failure or have let yourself or your family down: not at all 7. Trouble concentrating on things, such as reading the newspaper or watching television: not at all 8. Moving or speaking so slowly that other people could have noticed. Or the opposite - being so fidgety or restless that you have been moving around a lot more than usual: not at all 9. Thoughts that you would be better off or of hurting yourself in some way: not at all Total score: 2 Depression Screening Interpretation: Positive Depression Screening Follow-up: Existing condition and In treatment Depression Screening Done: Yes 87543 - PHQ-9 Billing: Yes Source: Developed by Drs. Kirill Hanna, Jeimy Garcia, Bijan Milian and colleagues, with an educational rolanda from [employer]. Thrive Questionnaire Date Thrive assessed: 10/06/23 I am a: Patient What is your living situation today?: I have a steady place to live Within the past 12 months, did the food you bought not last and you didn't have the money to get more?: Never true Within the past 12 months, did you worry whether your food would run out before you got money to buy more?: Never true Do you have trouble paying for medicines?: No Do you have trouble getting transportation to medical appointments?: No Do you have trouble paying your heating and electricity bill?: No Do you have trouble taking care of your child, family member or friend?: No Do you have trouble with day-to-day activities such as bathing, preparing meals, shopping, managing finances, etc.?: No Are you currently unemployed and looking for a job?: No Are you interested in more education?: No Please select the resources that you would like help with: None Currently or been in a relationship where the following occur: no concerns reported THRIVE Score: 0 AUDIT C Alcohol Use Questionnaire (AUDIT-C) 1. How often do you have a drink containing alcohol?: Monthly or less 2. How many drinks containing alcohol do you have on a typical day when you are drinking?: 1 or 2 3. How often do you have six or more drinks on one occasion?: Never Total Score: 1 Score Reviewed/Action Taken: Yes NOHEMY-7 AMB Questionnaire NOHEMY-7 Date NOHEMY - 7 assessed: 06/22/23 Source: Developed by Drs. Kirill Hanna, Jeimy Garcia, Bijan Milian and colleagues, with an educational rolanda from [employer]. Review of Systems Const Denies chills, Denies fatigue, Denies fever(s), Denies headache(s), Denies malaise and Denies weakness Eyes Denies blurry vision, Denies change in vision, Denies irritation and Denies itchy eyes ENT Denies dysphagia, Denies dizziness, Denies otalgia, Denies headache(s), Denies nasal congestion, Denies neck pain, Denies odynophagia and Denies sore throat Card Denies chest pain, Denies rapid heart rate, Denies irregular heart rhythm, Denies palpitations and Denies dyspnea Resp Denies chest congestion, Denies cough, Denies dyspnea and Denies wheezing GI Denies abdominal pain, Denies bloating, Denies constipation, Denies dysphagia, Denies heartburn, Denies diarrhea, Denies nausea, Denies odynophagia and Denies vomiting Denies hematuria, Denies difficulty urinating, Denies dysuria, Denies urinary frequency and Denies urinary urgency Musc Denies back pain, Denies arthralgias, Denies joint swelling, Denies muscle weakness and Denies neck pain Skin/Breast Denies change in pigmentation, Denies lesions, Denies rash and Denies unusual bruising Neuro Denies dizziness, Denies headache(s), Denies paresthesias and Denies weakness Endo Denies fatigue and Denies palpitations Aller/Immun Denies itchy eyes and Denies wheezing Physical exam (Primary Care) Vital Signs: Last Vital Signs Pulse 47 L 10/06/23 13:12 BP 126/78 10/06/23 13:12 Pulse Ox 97 10/06/23 13:12 Oxygen Delivery Method Room Air 10/06/23 13:12 BMI result Body Mass Index 32.7 Tobacco/Smoking Status: Tobacco use Status Tobacco use date assessed 06/22/23 10/06/23 13:13 Patient Tobacco Use Status Former Tobacco user 10/06/23 13:13 e-Cigarette/Vaping Use Never Used 10/06/23 13:13 Depression Screening Interpretation: Positive Depression Screening Follow-up: Existing condition and In treatment Thrive Assessment: Date of Thrive Assessment Date Thrive assessed 06/22/23 10/06/23 13:13 Currently or been in a relationship where the following occur: no concerns reported Const General: no acute distress, alert and awake Orientation/consciousness: patient oriented x3 HENMT Head: Yes normocephalic and Yes atraumatic Ears: external ears normal, TM's normal bilaterally and EAC's normal General nose exam: No nasal discharge present Face and sinus: Yes normal facial exam and Yes sinuses nontender Teeth and gingiva: dentition normal Throat: Yes posterior oropharynx normal and Yes tonsils normal (no TP congestion) Eyes Eyelids: Yes eyelids normal Conjunctivae: conjunctivae normal Pupils: Equal, round and reactive pupils present EOM: EOMs intact bilaterally Neck Neck: Yes no lymphadenopathy and Yes supple Thyroid: Thyroid normal Resp Auscultation: clear to auscultation bilaterally, no rales and no wheezes Cardio Rate: regular rate Rhythm: regular rhythm Heart sounds: no murmurs GI Palpation (GI): Soft to palpation, nontender and No hepatosplenomegaly present Auscultation: normal bowel sounds General: Yes no CVA tenderness Back/Spine/Pelvis Back: no CVA tenderness Thoracic/Lumbar Spine: thoracic and lumbar spine normal to inspection Skin Lesions: no lesions Rashes: no rashes Neuro General: patient oriented x3, moves all extremities, no focal motor deficits and CN's II-XI intact bilaterally Cranial nerves: Yes Equal, round and reactive pupils present Cognition (Neuro): normal cognition Gait exam (Neuro): Normal gait present Extrem General: Yes no clubbing, cyanosis or edema Results AMB Hemoglobin A1c AMB Hemoglobin A1c 9.6 % Last Edit by JASE Fay on 10/06/23 13:24 Results Reviewed Results Reviewed: Laboratory Last Values Hgb A1c (Clinic) 9.6 % (4.0-6.0) H 10/06/23 13:13 Assessment and Plan Assessment & Plan (1) Annual physical exam: Code(s): Z00.00 - Encounter for general adult medical examination without abnormal findings Plan: Patient is instructed to get his previously ordered labs done ISACC Will also check his serum PSA level He is currently up-to-date with his colon cancer screening - had colonoscopy last done in 2020 and will be due for repeat colonoscopy in 5 years (2025) (2) Type 2 diabetes mellitus with stage 3b chronic kidney disease, with long-term current use of insulin: Code(s): E11.22 - Type 2 diabetes mellitus with diabetic chronic kidney disease; N18.32 - Chronic kidney disease, stage 3b; Z79.4 - [facility] (current) use of insulin Plan: In-office HgbA1c done today is at 9.6% (was at 10.9% a few months ago) - goal is at least <7.0% Reinforced diabetic diet Continue Lantus Solostar 70 units Q HS and Humalog Kwikpen 2 to 8 units SQ 4 times a day (with meals and at bedtime) per sliding scale and Metformin 1000 mg BID Patient admits that he has not been quite compliant with his Humalog dosing as he is now retired and really does not follow any strict schedule daily so he often goes to bed late and wakes up late (sometimes past noon) and so he is not dosing his Humalog 4 times a day regularly as prescribed We have also started him on Trulicity in the past but he could not afford the co-pay for his Rx He was hoping for his HgbA1c to be lower to allow him to be able to proceed with his cataract surgery but have again reminded him that in order to clear him for cataract surgery, his HgbA1c has to be at least 8.2% or lower Advised that if his HgbA1c is not <8.2%, even if we were to clear him for surgery, ophthalmology will NOT agree to proceed as the risks for complications go up if his blood sugar is not properly controlled Have advised patient that depending on how his renal function and other labs come out on his lab, we may decide to start him additionally on some other medicine to help control his blood sugar better We have referred him to [facility] months ago but patient states that he was never contacted for an appointment after all this time (3) Mixed hyperlipidemia: Code(s): E78.2 - Mixed hyperlipidemia Plan: Will have him recheck his fasting lipids ISACC Reinforced low cholesterol diet Continue Rosuvastatin 10 mg QD; had some unrecalled problems with Atorvastatin in the past but is tolerating Rosuvastatin with no issues Will recheck his labs and fasting lipids again in 4 months for follow up (4) Benign essential hypertension: Code(s): I10 - Essential (primary) hypertension Plan: Reinforced low sodium diet - goal is systolic BP of at least 120 to 130 mm or less Continue Irbesartan 300 mg QD, Amlodipine 5 mg QD and Atenolol 50 mg QD Used to also take HCTZ 12.5 mg QD in the past but this was discontinued at some point for unclear reasons; it is possible patient self-discontinued Rx inadvertently but as his BP is reasonably controlled at present, will hold off on starting him back on this Rx (5) Obstructive sleep apnea: Code(s): G47.33 - Obstructive sleep apnea (adult) (pediatric) Plan: He was diagnosed with HERSON last year and is now on CPAP therapy when he sleeps at night Follow up with Sleep Medicine as scheduled (6) Crohn's disease: Code(s): K50.90 - Crohn's disease, unspecified, without complications Qualifiers: Gastrointestinal tract location: unspecified location Digestive disease complication type: unspecified complication Qualified Code(s): K50.919 - Crohn's disease, unspecified, with unspecified complications Plan: Currently stable with no recent flare ups Was on Lialda 1.2 mg 2 tablets daily in the past but he stopped taking it a while back as he could not afford the cost of the Rx Follow up with GI (Dr. Rush) as scheduled (7) Constipation: Code(s): K59.00 - Constipation, unspecified Qualifiers: Constipation type: unspecified constipation type Qualified Code(s): K59.00 - Constipation, unspecified Plan: Reinforced increased oral fluids and dietary fiber Will have him increase his Senna 8.6 mg from 1 tablet to 2 tablets Q HS PRN (8) Insomnia: Code(s): G47.00 - Insomnia, unspecified Qualifiers: Insomnia type: primary Qualified Code(s): F51.01 - Primary insomnia Plan: Sleep hygiene reinforced Is on Mirtazapine, which helps with his sleep at night somewhat Could not tolerate Trazodone in the past - states that he felt like a zombie the next day Has also tried 1/2 tablet of OTC Melatonin 10 mg - states that it also knocks him out but not as much as Trazodone did Advised that he can continue Melatonin if it helps and there should be no concerning long-term side effects from it, including habit-forming potential (9) Anxiety: Code(s): F41.9 - Anxiety disorder, unspecified Plan: Continue Lorazepam 0.5 mg QD PRN (10) Depression: Code(s): F32.9 - Major depressive disorder, single episode, unspecified Qualifiers: Depression Type: major depressive disorder Major depression recurrence: recurrent Active/Remission status: currently active Major depression episode severity: unspecified Qualified Code(s): F33.9 - Major depressive disorder, recurrent, unspecified Plan: Continue Fluoxetine 60 mg QD and Mirtazapine 15 mg Q HS Follow up with psychiatry as scheduled (11) Obesity (BMI 30-39.9): Code(s): E66.9 - Obesity, unspecified Plan: Reinforced diet/exercise as tolerated/lose weight Plan Follow up in 4 months Orders: Orders C Peptide Today E11.9 - Type 2 diabetes mellitus without complications Glutamic acid decarboxylase Ab Today E11.9 - Type 2 diabetes mellitus without complications Lipid Panel 4 Months E78.00 - Pure hypercholesterolemia, unspecified Comprehensive [place]. Panel Fast 4 Months E78.00 - Pure hypercholesterolemia, unspecified Hemoglobin A1c 4 Months E11.9 - Type 2 diabetes mellitus without complications AMB Hemoglobin A1c Today E11.65 - Type 2 diabetes mellitus with hyperglycemia, Z79.4 - [facility] (current) use of insulin Prostate Specific Antigen Today N40.0 - Benign prostatic hyperplasia without lower urinary tract symptoms, Z00.00 - Encounter for general adult medical examination without abnormal findings Complete Blood Count Auto Diff 4 Months D64.9 - Anemia, unspecified Microalbumin, Random (w Creat) 4 Months E11.9 - Type 2 diabetes mellitus without complications UA CC w/rflx Micro + Cult 4 Months R30.0 - Dysuria Medications: Changed From sennosides (senna) 8.6 mg PO DAILY 90 days PRN 90 tabs 1RF for constipation K59.00 - Constipation, unspecified To sennosides (senna) 17.2 mg (2 x 8.6 mg) PO DAILY 90 days PRN 180 tabs 1RF for constipation K59.00 - Constipation, unspecified Coding Level of Care Code Est Pt Level 4 (70363) Diagnoses Annual physical exam Z00.00 Type 2 diabetes mellitus with stage 3b chronic kidney disease, with long-term current use of insulin E11.22; N18.32; Z79.4 Mixed hyperlipidemia E78.2 Benign essential hypertension I10 Obstructive sleep apnea G47.33 Crohn's disease with complication, unspecified gastrointestinal tract location K50.919 Gastrointestinal tract location: unspecified location Digestive disease complication type: unspecified complication Constipation, unspecified constipation type K59.00 Constipation type: unspecified constipation type Primary insomnia F51.01 Insomnia type: primary Anxiety F41.9 Episode of recurrent major depressive disorder, unspecified depression episode severity F33.9 Depression Type: major depressive disorder Major depression recurrence: recurrent Active/Remission status: currently active Major depression episode severity: unspecified Obesity (BMI 30-39.9) E66.9
== END 2023-10-06 14:17 | disposition home or self-care (01) ==
PROVIDERS: PCP Internal Medicine; Visit Provider Internal Medicine
DX: E11.65 Type 2 diabetes mellitus with hyperglycemia (principal); Z79.4 Long term (current) use of insulin
CPT/HCPCS: 83036; 99397

== ENCOUNTER 2023-10-06 14:24 | Outpatient (REF) | payer MEDICARE, SELFPAY ==
[2023-10-06 14:39] LABS: MANUAL DIFF FLAG NO
[2023-10-06 15:23] LABS: Appearance Urine Clear; Color Urine Yellow; Glucose Urine UA >=1000 mg/dL (Negative); Leukocyte Esterase Urine Negative (Negative); Nitrite Urine Negative (Negative); PH 5.5 (5.0-9.0); Specific Gravity - Urine 1.025 (1.005-1.025); UMIC TRIGGER UACC YES; Urine Blood Negative (Negative); Urine Ketones Negative (Negative); Urine Protein 100 (2+) mg/dL (Neg-Trace)
[2023-10-06 15:28] LABS: Basophils Absolute Auto 0.1 X10*3/uL (0.0-0.2); Basophils Percent Auto 1.3 % (0-2); Eosinophils Absolute Auto 0.2 X10*3/uL (0.0-0.4); Eosinophils Percent Auto 2.2 % (0-4); Hematocrit 36.9 % (42.0-52.0); Hemoglobin 12.3 g/dl (14.0-18.0); Imm Gran Abs Auto 0.05 X10*3/uL (0.00-0.03); Imm Gran Pct Auto 0.7 % (0.0-0.4); Lymphocytes Absolute Auto 2.4 X10*3/uL (1.2-4.9); Lymphocytes Percent Auto 35.8 % (20-40); Mean Corpuscular HGB Conc 33.3 g/dl (31.0-36.0); Mean Corpuscular Hemoglobin 29.4 pg (27.0-33.0); Mean Corpuscular Volume 88.3 fL (80.0-98.0); Mean Platelet Volume 11.6 fL (9.4-12.4); Monocytes Absolute Auto 0.5 X10*3/uL (0.1-1.2); Monocytes Percent Auto 7.8 % (2-11); Neutrophils Absolute Auto 3.5 x10*3/uL (2.0-8.3); Neutrophils Percent Auto 52.2 % (45-73); Platelet Count 293 X10*3/uL (160-400); Red Blood Count 4.18 X10*6/uL (4.60-5.80); Red Cell Distribution Width 13.1 % (11.0-16.0); White Blood Count 6.7 X10*3/uL (4.8-10.8)
[2023-10-06 15:28] LABS: Bacteria Urine None Seen (None Seen); Hyaline Casts Urine 0-2 /LPF (0-2); RBC Urine 0-2 /HPF (0-2); Squamous Epithelial Cell Urine 0-2 /HPF (0-2); WBC Urine 0-5 /HPF (0-5)
[2023-10-06 16:12] LABS: Alanine Aminotransferase 19 U/L (0-40); Albumin Level 4.2 g/dL (3.5-5.0); Alkaline Phosphatase 90 U/L (39-117); Anion Gap 13 (12-20); Aspartate Amino Transferase 15 U/L (5-37); Bilirubin Total 0.4 mg/dL (0.0-1.0); Blood Urea Nitrogen 23 mg/dL (9-16); Calcium 9.2 mg/dL (8.4-10.2); Carbon Dioxide 24 mmol/L (22-29); Chloride 103 mmol/L (96-108); Cholesterol 175 mg/dL (<200); Estimated Glomerular Filt Rate 45; Glucose Fasting 218 mg/dL (60-99); HDL Cholesterol 31 mg/dL (>40); LDL Cholesterol Calculated 90 mg/dL (<100); Potassium 5.1 mmol/L (3.3-5.1); Sodium 135 mmol/L (135-145); Total Protein 7.1 g/dL (6.5-8.0); Triglycerides 273 mg/dL (<150)
[2023-10-06 16:20] LABS: Creatinine Urine 113.71 mg/dL; Microalbum/Creatinine Ratio Ur 526.7 ug/mg cr (<30)
[2023-10-06 16:28] LABS: TSH reflex Free T4 1.84 uIU/mL (0.32-4.0); Vitamin D 25-OH Total 30.5 ng/mL (>30)
[2023-10-06 16:39] LABS: Folate 5.9 ng/mL (> or = 4.0); Prostate Specific Antigen 0.84 ng/mL (<0.05-4.0); Vitamin B12 535 pg/mL (200-900)
[2023-10-10 22:04] LABS: Glutamic acid decarboxylase Ab <5 IU/mL (<5)
== END 2023-10-06 14:25 | disposition home or self-care (01) ==
LOC: HO.LAB 14:24
PROVIDERS: PCP Internal Medicine; Visit Provider Internal Medicine
DX: Z00.00 Encounter for general adult medical examination without abnormal findings (principal); I10 Essential (primary) hypertension; R30.0 Dysuria; N40.0 Benign prostatic hyperplasia without lower urinary tract symptoms; E11.65 Type 2 diabetes mellitus with hyperglycemia; E55.9 Vitamin D deficiency, unspecified; E78.00 Pure hypercholesterolemia, unspecified; E53.8 Deficiency of other specified B group vitamins; Z79.4 Long term (current) use of insulin; Z12.5 Encounter for screening for malignant neoplasm of prostate
CPT/HCPCS: 36415; 80053; 80061; 81001; 82043; 82306; 82570; 82607; 82746; 84153; 84443; 84681; 85025; 86341

== ENCOUNTER 2023-11-02 18:47 | Inpatient (IN) | payer MEDICARE, SELFPAY ==
--- NOTE | ~2023-11-02 | MR_ITS ---
EXAMINATION: MR FOOT WITHOUT AND WITH CONTRAST, RIGHT CLINICAL INFORMATION: Swelling/redness at the base of the right foot. COMPARISON: Radiograph dated 11/02/2023. TECHNIQUE: MRI of the right foot was performed before and after the intravenous administration of 10 mL Gadavist on a high-field scanner. FINDINGS: The skin wound at the plantar/medial aspect of the first MTP joint measures 0.8 x 1.4 cm. The underlying complex collection measures 4.3 x 1.8 x 3 cm (transverse x AP x longitudinal) and contains a mix of fluid signal intensity and foci of gas, consistent with abscess. Peripheral enhancement is noted in this region. Additional skin wounds may be present in the medial and dorsal soft tissues in this region. No additional abscess identified. There is generalized soft tissue swelling and subcutaneous edema in the forefoot and midfoot, more pronounced dorsally. Fatty atrophy is present at the intrinsic foot musculature. There is severe degenerative arthritis at the first MTP joint with marked foreshortening and fragmentation of the first metatarsal head, potentially due in part to prior surgery. No MR findings of osteomyelitis. Sesamoid bones are normal in signal intensity. No appreciable septic arthritis. [id number] multifocal osteoarthritis is present in the midfoot at the TMT joints. Lisfranc ligament is intact. MR/MR foot RT wo/w con IMPRESSION: 1. A 4.3 cm abscess at the plantar/medial aspect of the first MTP joint. No osteomyelitis. 2. 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
--- NOTE | ~2023-11-02 | XR_ITS ---
EXAMINATION: XR FOOT, RIGHT CLINICAL INFORMATION: Right great toe with cellulitis COMPARISON: 05/16/2013 TECHNIQUE: AP, lateral, and oblique views of the right foot. FINDINGS: There is marked soft tissue swelling centered at the first metatarsal phalangeal joint. There is significant heterotopic bone formation seen possibly secondary to old trauma. There is an unusual linear piece of bone seen inferolateral to the metatarsal. All of these findings are new when compared with 05/16/2013. No definite bony destructive changes are seen. MRI would be the best modality to exclude osteomyelitis. XR/XR foot RT min 3V IMPRESSION: Marked soft tissue swelling centered at the first metatarsophalangeal joint with heterotopic bone formation. No definite bony destructive changes are seen. MRI would be the best modality to exclude osteomyelitis.
[2023-11-02 19:36] VITALS: BP 178/72; PULSE 92; RESP 18; TEMP 37.6; O2SAT 96; BMI 32.5
--- NOTE | 2023-11-02 19:37 | ED.GENADULT ---
HPI - General Adult General Stated complaint: right big toe red + swollen diabetic Related Data Home Medications ?Medication ?Instructions ?Recorded ?Confirmed aspirin 81 mg tablet,delayed 81 mg PO DAILY 04/10/20 10/06/23 release (Adult Low Dose Aspirin) blood pressure test kit-wrist 02/15/21 10/06/23 Previous Rx's ?Medication ?Instructions ?Recorded cyanocobalamin (vitamin B-12) 1,000 mcg PO DAILY 30 days #30 tabs 04/21/22 1,000 mcg tablet pyridoxine (vitamin B6) 50 mg 50 mg PO DAILY 30 days #30 tabs 04/21/22 tablet thiamine HCl (vitamin B1) 100 mg 100 mg PO DAILY 30 days #30 tabs 04/21/22 tablet blood sugar [facility] Verio test strips) cholecalciferol (vitamin D3) 250 250 mcg PO 2XW 90 days #26 caps 06/19/22 mcg (10,000 unit) capsule lancets 33 gauge ([facility] 11/20/22 Lancets) amlodipine 5 mg tablet 5 mg PO DAILY 90 days #90 tabs 01/03/23 sodium zirconium cyclosilicate 10 10 g PO ONCE #1 ea 01/22/23 gram oral powder packet (Lokelma) fluticasone propionate 50 1 spray intranasal DAILY #48 grams 06/24/23 mcg/actuation nasal spray,suspension irbesartan 300 mg tablet 300 mg PO DAILY #90 caps 06/24/23 pen needle, diabetic 31 gauge x 1 ea miscellaneous BID 60 30 days 06/24/23 5/16 (Easy Touch) #60 ea colchicine 0.6 mg tablet 0.6 mg PO BID 3 days #6 tabs 08/07/23 mirtazapine 15 mg tablet 15 mg PO BEDTIME 90 days #90 tabs 08/11/23 omeprazole 40 mg capsule,delayed 40 mg PO BID #180 caps 08/14/23 release rosuvastatin 10 mg tablet 10 mg PO DAILY 90 days #90 tabs 08/14/23 albuterol sulfate 90 mcg/actuation 2 puff inhalation Q6H PRN 08/23/23 aerosol inhaler (Ventolin HFA) shortness of breath or wheezing 30 days #8.5 grams metformin 1,000 mg tablet 1,000 mg PO BID #60 tabs 09/03/23 blood-glucose meter,continuous #1 ea 09/10/23 (Dexcom G6 Reversing Mill Roller) blood-glucose sensor (Dexcom G6 #3 ea 09/10/23 Sensor device) blood-glucose transmitter (Dexcom #1 ea 09/10/23 G6 Transmitter device) fluoxetine 20 mg capsule 60 mg (3 x 20 mg) PO DAILY 30 days 09/14/23 #90 caps sennosides 8.6 mg tablet (senna) 17.2 mg (2 x 8.6 mg) PO DAILY PRN 10/06/23 for constipation 90 days #180 tabs Lantus Solostar U-100 Insulin 100 70 unit (0.7 mL) subcut DAILY #15 10/10/23 unit/mL (3 mL) subcutaneous pen mL (insulin glargine) insulin lispro 100 unit/mL See Rx Instructions .Route 10/10/23 subcutaneous pen (Humalog KwikPen .COMPLEX #15 mL (U-100) Insulin) atenolol 50 mg tablet 50 mg PO DAILY #90 tabs 10/12/23 Allergies Allergy/AdvReac Type Severity Reaction Status Date / Time sertraline [SERTRALINE] Allergy Severe RASH, ABD Verified 11/02/23 19:39 PAIN DEHYDRATION Penicillins [PENICILLINS] Allergy Intermediate RASH Verified 11/02/23 19:39 PMFSH Past Medical History Medical History (Updated 10/06/23 @ 16:18 by Marcelo Lopez MD) Type 2 diabetes mellitus with stage 3b chronic kidney disease, with long-term current use of insulin Mixed hyperlipidemia Obstructive sleep apnea Memory impairment Environmental allergies Chronic kidney disease (CKD), stage III (moderate) Prostate cancer screening H/O hyperkalemia Recurrent cough Obesity (BMI 30-39.9) Depression Anxiety Insomnia Primary osteoarthritis, left shoulder Crohn's disease GERD (gastroesophageal reflux disease) Pure hypercholesterolemia Benign essential hypertension 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 Type 2 diabetes mellitus with diabetic polyneuropathy Allergic rhinitis Surgical History History of esophagogastroduodenoscopy (EGD) Hx of colonoscopy History of umbilical hernia repair Family History Family History Father Diabetes Melanoma Mother Diabetes Hypertension Cancer Sister Diabetes Social History Social History Housing: Apartment Alcohol intake: former Patient Tobacco Use Status: Former Tobacco user Quit Date: 3 months ago e-Cigarette/Vaping Use: Never Used Second Hand Smoke Exposure: No service: No Current occupational status: employed Cognitive needs: No Hearing needs: No Vision needs: No Course Course Course Narrative: This is an RME: Additional HPI, ROS, PE not included below will be deferred to primary provider. RME assessment and note performed by: Peg Caban PA-C This is a [id number], with a hx of diabetes, HTN, crohn's disease CKD, GERD, who presents to the ER with complaints of right foot redness and pain x 2 days. R foot is erythematous and equisitely TTP, concerning for cellulitis. Has not been monitoring his blood glucose level Plan: Labs, xr, further ER evaluation needed. Discharge Plan Discharge Prescriptions: No Action (DME) blood pressure test kit-wrist Kit See Rx Instructions .Route Rx Instructions: As directed thiamine HCl (vitamin B1) 100 mg tablet 100 mg PO DAILY 30 Days Qty: 30 5RF pyridoxine (vitamin B6) 50 mg tablet 50 mg PO DAILY 30 Days Qty: 30 5RF cyanocobalamin (vitamin B-12) 1,000 mcg tablet 1,000 mcg PO DAILY 30 Days Qty: 30 5RF (DME) OneTouch Verio test strips Strip See Rx Instructions .Route Qty: 100 12RF Rx Instructions: As directed- in vitro 3 times a day cholecalciferol (vitamin D3) 250 mcg (10,000 unit) capsule 250 mcg PO 2XW 90 Days Qty: 26 1RF (DME) lancets [OneTouch Delica Lancets] 33 gauge misc See Rx Instructions .Route Qty: 100 12RF Rx Instructions: As directed amlodipine 5 mg tablet 5 mg PO DAILY 90 Days Qty: 90 1RF Lokelma 10 gram powder in packet 10 g PO ONCE Qty: 1 0RF irbesartan 300 mg tablet 300 mg PO DAILY Qty: 90 1RF pen needle, diabetic [Easy Touch] 31 gauge x 5/16 needle 1 ea miscellaneous BID 30 Days Qty: 60 3RF fluticasone propionate 50 mcg/actuation spray,suspension 1 spray intranasal DAILY Qty: 48 5RF colchicine 0.6 mg tablet 0.6 mg PO BID 3 Days Qty: 6 0RF mirtazapine 15 mg tablet 15 mg PO BEDTIME 90 Days Qty: 90 1RF rosuvastatin 10 mg tablet 10 mg PO DAILY 90 Days Qty: 90 1RF omeprazole 40 mg capsule,delayed release(DR/EC) 40 mg PO BID Qty: 180 2RF albuterol sulfate [Ventolin HFA] 90 mcg/actuation HFA aerosol inhaler 2 puff inhalation Q6H PRN (Reason: shortness of breath or wheezing) 30 Days Qty: 8.5 0RF metformin 1,000 mg tablet 1,000 mg PO BID Qty: 60 3RF (DME) Dexcom G6 Sensor Device See Rx Instructions .Route Qty: 3 5RF Rx Instructions: As directed (DME) Dexcom G6 Reversing [place] Roller Misc See Rx Instructions .ROUTE .MEDSUPPLY Qty: 1 5RF Rx Instructions: As directed (DME) Dexcom G6 Transmitter Device See Rx Instructions .Route Qty: 1 0RF Rx Instructions: test blood sugars three times daily fluoxetine 20 mg capsule 60 mg PO DAILY 30 Days Qty: 90 3RF insulin lispro [Humalog KwikPen Insulin] 100 unit/mL insulin pen See Rx Instructions .ROUTE .COMPLEX Qty: 15 3RF Rx Instructions: Take 2 to 8 units SQ 4 times a day - with meals and at bedtime - PER SLIDING SCALE (see below for sliding scale details) Insulin as advised before meals 0-150: 0 unit 151-200: 2 units 201-250: 4 units 251-300: 6 units 301-350: 8 units >351 call insulin glargine [Lantus Solostar U-100 Insulin] 100 unit/mL (3 mL) insulin pen 70 unit subcut DAILY Qty: 15 3RF atenolol 50 mg tablet 50 mg PO DAILY Qty: 90 2RF aspirin [Adult Low Dose Aspirin] 81 mg tablet,delayed release (DR/EC) 81 mg PO DAILY sennosides [senna] 8.6 mg tablet 17.2 mg PO DAILY PRN (Reason: for constipation) 90 Days Qty: 180 1RF Print Language: Slovak
[2023-11-02 20:08] LABS: MANUAL DIFF FLAG NO
[2023-11-02 20:12] LABS: Basophils Percent Auto 0.3 % (0-2); Eosinophils Percent Auto 0.1 % (0-4); Hemoglobin 11.5 g/dl (14.0-18.0); Imm Gran Abs Auto 0.09 X10*3/uL (0.00-0.03); Imm Gran Pct Auto 0.6 % (0.0-0.4); Lymphocytes Absolute Auto 0.6 X10*3/uL (1.2-4.9); Lymphocytes Percent Auto 4.2 % (20-40); Mean Corpuscular HGB Conc 33.8 g/dl (31.0-36.0); Mean Corpuscular Hemoglobin 30.3 pg (27.0-33.0); Mean Corpuscular Volume 89.7 fL (80.0-98.0); Monocytes Absolute Auto 0.8 X10*3/uL (0.1-1.2); Monocytes Percent Auto 5.2 % (2-11); Neutrophils Absolute Auto 13.6 x10*3/uL (2.0-8.3); Neutrophils Percent Auto 89.6 % (45-73); Platelet Count 287 X10*3/uL (160-400); Red Blood Count 3.79 X10*6/uL (4.60-5.80); Red Cell Distribution Width 13.1 % (11.0-16.0); White Blood Count 15.2 X10*3/uL (4.8-10.8)
[2023-11-02 20:40] LABS: Alanine Aminotransferase 15 U/L (0-40); Alkaline Phosphatase 103 U/L (39-117); Anion Gap 18 (12-20); Aspartate Amino Transferase 17 U/L (5-37); Bilirubin Direct 0.7 mg/dL (0.0-0.5); Bilirubin Total 1.8 mg/dL (0.0-1.0); Blood Urea Nitrogen 22 mg/dL (9-16); C Reactive Protein 31.38 mg/dL (< or = 0.50); Calcium 9.7 mg/dL (8.4-10.2); Carbon Dioxide 20 mmol/L (22-29); Chloride 99 mmol/L (96-108); Estimated Glomerular Filt Rate 42; Glucose Random 235 mg/dL (60-115); Potassium 4.6 mmol/L (3.3-5.1); Sodium 132 mmol/L (135-145); Total Protein 7.5 g/dL (6.5-8.0)
[2023-11-02 20:53] LABS: Erythrocyte Sedimentation Rate 96 MM/HR (0-15)
[2023-11-02 22:38] VITALS: BP 124/70; PULSE 93; RESP 18; TEMP 38.4; O2SAT 96
[2023-11-02 22:45] LABS: Glucose, Whole Blood 264 mg/dL (60-115)
[2023-11-03] VITALS (8 sets, daily range): BP systolic 109–186; BP diastolic 56–78; PULSE 62–82; RESP 16–18; TEMP 36.2–38.3; O2SAT 95–100
--- NOTE | 2023-11-03 01:33 | ED.EXTPRO ---
HPI - Extremity Problem General Chief complaint: General Medical Stated complaint: right big toe red + swollen diabetic Time Seen by Provider: 11/03/23 00:43 Source: patient Mode of arrival: ambulatory Limitations: no limitations History of Present Illness ED Provider: Dr billings HPI Narrative: Patient diabetic with peripheral neuropathy with callus at the base of right foot greater toe for last 4 days noticed little discomfort today noticed swollen increased redness patient does not feel much sensation in the feet no fever no chills blood sugar slightly on the higher side on arrival it was 264 patient otherwise feels no discomfort Related Data Home Medications ?Medication ?Instructions ?Recorded ?Confirmed aspirin 81 mg tablet,delayed 81 mg PO DAILY 04/10/20 10/06/23 release (Adult Low Dose Aspirin) blood pressure test kit-wrist 02/15/21 10/06/23 Previous Rx's ?Medication ?Instructions ?Recorded cyanocobalamin (vitamin B-12) 1,000 mcg PO DAILY 30 days #30 tabs 04/21/22 1,000 mcg tablet pyridoxine (vitamin B6) 50 mg 50 mg PO DAILY 30 days #30 tabs 04/21/22 tablet thiamine HCl (vitamin B1) 100 mg 100 mg PO DAILY 30 days #30 tabs 04/21/22 tablet blood sugar diagnostic ([facility] #100 ea 06/02/22 Verio test strips) cholecalciferol (vitamin D3) 250 250 mcg PO 2XW 90 days #26 caps 06/19/22 mcg (10,000 unit) capsule lancets 33 gauge (OneTouch Delica #100 ea 11/20/22 Lancets) amlodipine 5 mg tablet 5 mg PO DAILY 90 days #90 tabs 01/03/23 sodium zirconium cyclosilicate 10 10 g PO ONCE #1 ea 01/22/23 gram oral powder packet (kelhi) fluticasone propionate 50 1 spray intranasal DAILY #48 grams 06/24/23 mcg/actuation nasal spray,suspension irbesartan 300 mg tablet 300 mg PO DAILY #90 caps 06/24/23 pen needle, diabetic 31 gauge x 1 ea miscellaneous BID 60 30 days 06/24/23 5/16 (Easy Touch) #60 ea colchicine 0.6 mg tablet 0.6 mg PO BID 3 days #6 tabs 08/07/23 mirtazapine 15 mg tablet 15 mg PO BEDTIME 90 days #90 tabs 08/11/23 omeprazole 40 mg capsule,delayed 40 mg PO BID #180 caps 08/14/23 release rosuvastatin 10 mg tablet 10 mg PO DAILY 90 days #90 tabs 08/14/23 albuterol sulfate 90 mcg/actuation 2 puff inhalation Q6H PRN 08/23/23 aerosol inhaler (Ventolin HFA) shortness of breath or wheezing 30 days #8.5 grams metformin 1,000 mg tablet 1,000 mg PO BID #60 tabs 09/03/23 blood-glucose meter,continuous #1 ea 09/10/23 (Dexcom G6 Low Heel Builder) blood-glucose sensor (Dexcom G6 #3 ea 09/10/23 Sensor device) blood-glucose transmitter (Dexcom #1 ea 09/10/23 G6 Transmitter device) fluoxetine 20 mg capsule 60 mg (3 x 20 mg) PO DAILY 30 days 09/14/23 #90 caps sennosides 8.6 mg tablet (senna) 17.2 mg (2 x 8.6 mg) PO DAILY PRN 10/06/23 for constipation 90 days #180 tabs Lantus Solostar U-100 Insulin 100 70 unit (0.7 mL) subcut DAILY #15 10/10/23 unit/mL (3 mL) subcutaneous pen mL (insulin glargine) insulin lispro 100 unit/mL See Rx Instructions .Route 10/10/23 subcutaneous pen (Humalog KwikPen .COMPLEX #15 mL (U-100) Insulin) atenolol 50 mg tablet 50 mg PO DAILY #90 tabs 10/12/23 Allergies Allergy/AdvReac Type Severity Reaction Status Date / Time sertraline [SERTRALINE] Allergy Severe RASH, ABD Verified 11/02/23 19:39 PAIN DEHYDRATION Penicillins [PENICILLINS] Allergy Intermediate RASH Verified 11/02/23 19:39 Review of Systems Review of Systems: Yes all other systems are reviewed and are negative PMFSH Past Medical History Medical History Type 2 diabetes mellitus with stage 3b chronic kidney disease, with long-term current use of insulin Mixed hyperlipidemia Obstructive sleep apnea Memory impairment Environmental allergies Chronic kidney disease (CKD), stage III (moderate) Prostate cancer screening H/O hyperkalemia Recurrent cough Obesity (BMI 30-39.9) Depression Anxiety Insomnia Primary osteoarthritis, left shoulder Crohn's disease GERD (gastroesophageal reflux disease) Pure hypercholesterolemia 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 essential hypertension 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 Type 2 diabetes mellitus with diabetic polyneuropathy Allergic rhinitis Surgical History History of esophagogastroduodenoscopy (EGD) Hx of colonoscopy History of umbilical hernia repair Family History Family History Father Diabetes Melanoma Mother Diabetes Hypertension Cancer Sister Diabetes Social History Social History Housing: Apartment Alcohol intake: former Patient Tobacco Use Status: Former Tobacco user Quit Date: 3 months ago e-Cigarette/Vaping Use: Never Used Second Hand Smoke Exposure: No Advance Directives: No Advance Directives Information Provided: No service: No Current occupational status: employed Cognitive needs: No Hearing needs: No Vision needs: No Physical Exam Vital Signs: Vital Signs: Last Vital Signs Temp 100.7 F H 11/03/23 00:31 Pulse 82 11/03/23 00:31 Resp 16 11/03/23 00:31 BP 148/69 H 11/03/23 00:31 Pulse Ox 97 11/03/23 00:31 O2 Del Method Room Air 11/03/23 00:31 BMI result Body Mass Index 32.5 Const: Other: Appearance: Alert. Oriented X3. No acute distress. Eyes: No pallor or icterus ENT: Pharynx normal. Oral Mucosa moist Neck: Normal inspection. Neck supple. CVS: Normal heart rate and rhythm. Pulses normal. Respiratory: No respiratory distress. Equal air entry bilateral, no wheezing/rales/rhonchi Abdomen: Soft and nontender. Bowel sounds are present, no mass palpable, no CVA tenderness Skin: Skin warm and dry. Swelling of the left right base of greater toe with surrounding erythema Extremities: No lower extremity edema. No calf tenderness Neuro: Oriented X 3. No motor deficit. Decreased sensation to touch and pain in the feet.No cerebellar signs , cranial nerves II-XII intact Medical Decision Making Medical Decision Making MDM Narrative: Patient with deep wound right base of great toe with worsening of the wound and swelling clinically patient has osteomyelitis with elevated WBC count and sed rate and deep wound incision was made and wound was irrigated with saline and iodine pus sent for culture will admit patient for osteomyelitis right great toe Differential Diagnosis Differential Diagnoses: The differential diagnosis associated with the presentation includes Cellulitis/abscess/osteomyelitis Admission/Observation Consideration of admission/observation: Escalation of care including admission/observation considered Consult Healthcare Provider Management of the patient was discussed with: Hospitalist Lab Data [facility] Lab Attestation statement: I reviewed the patient's lab results. 11/02/23 19:56 11/02/23 19:56 Labs: Lab Results 11/02/23 11/02/23 Range/Units 19:56 22:41 WBC 15.2 H (4.8-10.8) X10*3/uL RBC 3.79 L (4.60-5.80) X10*6/uL Hgb 11.5 L (14.0-18.0) g/dl Hct 34.0 L (42.0-52.0) % MCV 89.7 (80.0-98.0) fL MCH 30.3 (27.0-33.0) pg MCHC 33.8 (31.0-36.0) g/dl RDW 13.1 (11.0-16.0) % Plt Count 287 (160-400) X10*3/uL MPV 11.0 (9.4-12.4) fL Immature Gran % (Auto) 0.6 H (0.0-0.4) % Neut % (Auto) 89.6 H (45-73) % Lymph % (Auto) 4.2 L (20-40) % [place] % (Auto) 5.2 (2-11) % Eos % (Auto) 0.1 (0-4) % Baso % (Auto) 0.3 (0-2) % Lymph # (Auto) 0.6 L (1.2-4.9) X10*3/uL [place] # (Auto) 0.8 (0.1-1.2) X10*3/uL Eos # (Auto) 0.0 (0.0-0.4) X10*3/uL Baso # (Auto) 0.0 (0.0-0.2) X10*3/uL Abs Immat Gran (auto) 0.09 H (0.00-0.03) X10*3/uL Absolute Neuts (auto) 13.6 H (2.0-8.3) x10*3/uL Absolute Nucleated RBC 0.000 (0.0-0.012) X10*3/uL Nucleated RBC % (auto) 0.0 (0.0-0.2) /100WBC ESR 96 H (0-15) MM/HR Sodium 132 L (135-145) mmol/L Potassium 4.6 (3.3-5.1) mmol/L Chloride 99 (96-108) mmol/L Carbon Dioxide 20 L (22-29) mmol/L Anion Gap 18 (12-20) BUN 22 H (9-16) mg/dL Creatinine 1.63 H (0.5-1.4) mg/dL Estim Creat Clear Calc 56.0 Estimated GFR 42 POC Glucose 264 H (60-115) mg/dL Random Glucose 235 H (60-115) mg/dL Lactic Acid 2.0 (0.5-2.0) mmol/L Calcium 9.7 (8.4-10.2) mg/dL Total Bilirubin 1.8 H (0.0-1.0) mg/dL Direct Bilirubin 0.7 H (0.0-0.5) mg/dL AST 17 (5-37) U/L ALT 15 (0-40) U/L Alkaline Phosphatase 103 (39-117) U/L C-Reactive Protein 31.38 H (< or = 0.50) mg/dL Total Protein 7.5 (6.5-8.0) g/dL Albumin 4.0 (3.5-5.0) g/dL Independent Interpretation I performed an independent interpretation of an: Plain X-Ray Radiology Impression Discussion of test interpretation with radiology: I have reviewed the radiologist's reading. Procedures Abscess I/D Site: foot Side (if applicable): right Local Anesthetic: lidocaine 1% Amount of anesthesia used (mL): 5 Technique: incised with blade Amount of fluid expressed (mL): 2 Sent for culture/gram staining?: Yes Irrigation: Yes Packing used?: none Discharge Plan Discharge Clinical Impression: Acute osteomyelitis of phalanx of right foot, Diabetic acidosis, type II, Peripheral neuropathy Patient Disposition: Admitted As Inpatient Print Language: [place] Island[place]
--- NOTE | 2023-11-03 01:42 | PM.IMHP ---
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 Patient states he does not have much sensation in his feet due to peripheral neuropathy. He noticed that the base of his right foot was getting bigger. Also noticed redness which was progressively worsening at the base of right foot. Does not remember trauma to the foot. Endorses chills. No chest discomfort, palpitations, shortness of breath, abdominal pain, changes in urinary or bowel habits. The emergency department, patient was found to be septic and initiated on empiric IV antibiotics Review of Systems Constitutional: Constitutional: Reports chills, Reports lethargy, Reports poor appetite and Reports weakness Cardiovascular: Cardiovascular: Reports no additional cardiovascular complaints Respiratory: Respiratory: Reports no additional respiratory complaints Gastrointestinal: Gastrointestinal: Reports no additional gastrointestinal complaints Genitourinary: Genitourinary: Reports no additional male genitourinary complaints Neurologic: Reports weakness [facility] Medical History Type 2 diabetes mellitus with stage 3b chronic kidney disease, with long-term current use of insulin Mixed hyperlipidemia Obstructive sleep apnea Memory impairment Environmental allergies Chronic kidney disease (CKD), stage III (moderate) Prostate cancer screening H/O hyperkalemia Recurrent cough Obesity (BMI 30-39.9) Depression Anxiety Insomnia Primary osteoarthritis, left shoulder Crohn's disease GERD (gastroesophageal reflux disease) Pure hypercholesterolemia Benign essential hypertension 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 Type 2 diabetes mellitus with diabetic polyneuropathy Allergic rhinitis Family History Father Diabetes Melanoma Mother Diabetes Hypertension Cancer Sister Diabetes Surgical History History of esophagogastroduodenoscopy (EGD) Hx of colonoscopy History of umbilical hernia repair Social History Housing: Apartment Alcohol intake: former Patient Tobacco Use Status: Former Tobacco user Quit Date: 3 months ago e-Cigarette/Vaping Use: Never Used Second Hand Smoke Exposure: No Advance Directives: No Advance Directives Information Provided: No service: No Current occupational status: employed Cognitive needs: No Hearing needs: No Vision needs: No Meds Allergies Allergy/AdvReac Type Severity Reaction Status Date / Time sertraline [SERTRALINE] Allergy Severe RASH, ABD Verified 11/02/23 19:39 PAIN DEHYDRATION Penicillins [PENICILLINS] Allergy Intermediate RASH Verified 11/02/23 19:39 Active Medications: Current Medications Vancomycin HCl (Vancomycin/Ns) 2,000 mg in 500 mls @ 250 mls/hr IV ONCE ONE Stop: 11/03/23 03:29 Piperacillin Sod/Tazobactam (Sod 4.5 gm/ Sodium Chloride) 100 mls @ 200 mls/hr IV ONCE ONE Stop: 11/03/23 01:59 Sodium Chloride (Ns) 1,000 mls @ 999 mls/hr IV .Q1H1M ONE Stop: 11/03/23 02:32 Home Medications ?Medication ?Instructions ?Recorded ?Confirmed ?Last Taken ?Type aspirin 81 mg tablet,delayed 81 mg PO DAILY 04/10/20 10/06/23 04/18/21 10:00 History release (Adult Low Dose Aspirin) blood pressure test kit-wrist 02/15/21 10/06/23 Unknown History Physical Exam Vital Signs and Narrative: Vital Signs: Last Vital Signs Temp 100.7 F H 11/03/23 00:31 Pulse 82 11/03/23 00:31 Resp 16 11/03/23 00:31 BP 148/69 H 11/03/23 00:31 Pulse Ox 97 11/03/23 00:31 O2 Del Method Room Air 11/03/23 00:31 BMI result Body Mass Index 32.5 Middle-aged male lying in bed in no distress Neck supple, no JVD Regular rate and rhythm, S1-S2 heard Regular breath sounds bilaterally, no wheezing or crackles appreciated Abdomen soft nontender, no guarding, no rigidity Patient is awake, alert and oriented to self, place, time and person ; no focal motor deficit Psych: Normal mood Right foot: As pictured below Extrem: Other: Results Labs 11/03/23 04:54 11/03/23 04:54 Labs: Laboratory Results - last 24 hr 11/02/23 11/02/23 19:56 22:41 MCV 89.7 MCH 30.3 MCHC 33.8 RDW 13.1 Plt Count 287 MPV 11.0 Immature Gran % (Auto) 0.6 H Neut % (Auto) 89.6 H Lymph % (Auto) 4.2 L [place] % (Auto) 5.2 Eos % (Auto) 0.1 Baso % (Auto) 0.3 Lymph # (Auto) 0.6 L [place] # (Auto) 0.8 Eos # (Auto) 0.0 Baso # (Auto) 0.0 Abs Immat Gran (auto) 0.09 H Absolute Neuts (auto) 13.6 H Absolute Nucleated RBC 0.000 Nucleated RBC % (auto) 0.0 ESR 96 H Anion Gap 18 Estim Creat Clear Calc 56.0 Estimated GFR 42 POC Glucose 264 H Random Glucose 235 H Lactic Acid 2.0 Calcium 9.7 Total Bilirubin 1.8 H Direct Bilirubin 0.7 H AST 17 ALT 15 Alkaline Phosphatase 103 C-Reactive Protein 31.38 H Total Protein 7.5 Albumin 4.0 Imaging Radiologist's Impressions: Impressions Foot X-Ray 11/02/23 19:58 IMPRESSION: Marked soft tissue swelling centered at the first metatarsophalangeal joint with heterotopic bone formation. No definite bony destructive changes are seen. MRI would be the best modality to exclude osteomyelitis. 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 #. Sepsis due to right foot diabetic foot infection with cellulitis: Resuscitated with IV crystalloids. Lactic acid and blood culture obtained. Initiating empiric IV antibiotics. Obtaining MRI for concerns of osteomyelitis #. Insulin-dependent diabetes mellitus with hyperglycemia: Initiating basal plus insulin regimen #. Mixed hyperlipidemia: On statin #. Hypertension: Continue home antihypertensives #. Mood disorder: Continue home mood stabilizers #. Chronic kidney disease stage 3: Creatinine at baseline. Continue to monitor and avoid nephrotoxins #. Gastroesophageal reflux disease: On PPI Med rec pending DVT prophylaxis: Lovenox Full Code Admit as inpatient and will require two night minimum hospital stay for IV antibiotics (as above), which is not possible in a lesser acute setting. Quality Stroke Does the patient have a stroke diagnosis?: No VTE Prior VTE?: No VTE Risk Level:: Medical - moderate - high VTE Device Contraindication: Treatment Not Indicated VTE Drug Contraindication: N/A - Med Ordered
[2023-11-03] MEDS: Piperacillin Sodium/Tazobactam 4.5 GM in 0.9 % Sodium Chloride 100 ML IV ×4 (01:45→17:53)
[2023-11-03] MEDS: 0.9 % Sodium Chloride 1,000 ML 999 ML IV (01:50)
[2023-11-03] MEDS: vancomycin/NS 2,000 MG/500 ML PLAST..BAG 250 MG IV (02:22)
[2023-11-03] MEDS: Acetaminophen 325 MG TABLET 650 MG PO (02:26)
--- NOTE | 2023-11-03 02:30 | PC.NURSE ---
Pt reports allergies to penicillins, states he got a rash as a child, provider Dr. Billings made aware and okayed to give. No reactions reported.
--- NOTE | 2023-11-03 02:30 | PC.NURSE ---
Pt resting in bed, medicated with ABX and Tylenol for pain. Hospitalist notified of elevated temp. Continue to monitor.
--- NOTE | 2023-11-03 02:40 | MHC.EDTECH ---
Patient had a tuna fish sandwich and a kd sharon for snack .
[2023-11-03 05:16] LABS: MANUAL DIFF FLAG NO
[2023-11-03 05:17] LABS: Basophils Percent Auto 0.2 % (0-2); Eosinophils Percent Auto 0.3 % (0-4); Hematocrit 28.2 % (42.0-52.0); Hemoglobin 9.3 g/dl (14.0-18.0); Imm Gran Abs Auto 0.13 X10*3/uL (0.00-0.03); Imm Gran Pct Auto 0.9 % (0.0-0.4); Lymphocytes Absolute Auto 1.2 X10*3/uL (1.2-4.9); Mean Corpuscular Hemoglobin 29.8 pg (27.0-33.0); Mean Corpuscular Volume 90.4 fL (80.0-98.0); Mean Platelet Volume 11.2 fL (9.4-12.4); Monocytes Absolute Auto 1.1 X10*3/uL (0.1-1.2); Monocytes Percent Auto 8.3 % (2-11); Neutrophils Absolute Auto 11.2 x10*3/uL (2.0-8.3); Neutrophils Percent Auto 81.3 % (45-73); Platelet Count 245 X10*3/uL (160-400); Red Blood Count 3.12 X10*6/uL (4.60-5.80); Red Cell Distribution Width 13.1 % (11.0-16.0); White Blood Count 13.8 X10*3/uL (4.8-10.8)
[2023-11-03 05:42] LABS: Anion Gap 16 (12-20); Blood Urea Nitrogen 27 mg/dL (9-16); Calcium 8.5 mg/dL (8.4-10.2); Carbon Dioxide 16 mmol/L (22-29); Chloride 103 mmol/L (96-108); Creatinine Clr Calc Pharmacy 48.5; Estimated Glomerular Filt Rate 36; Glucose Random 306 mg/dL (60-115); Potassium 4.5 mmol/L (3.3-5.1); Sodium 130 mmol/L (135-145)
--- NOTE | 2023-11-03 06:42 | PHA.PROG ---
Admission Date/Time: November 03, 2023 01:41 Indication: Sepsis Weight in k.7 kg Adjusted body weight in Kg: Henning body weight in Kg: Obesity Dosing Indication % IBW: BMI 32.5 Serum Creatinine - Last 168 Hours 11/02/23 11/03/23 19:56 04:54 Creatinine 1.63 H 1.88 H Estimated CrCl and GFR - Last 168 Hours 11/02/23 11/03/23 19:56 04:54 Estim Creat Clear Calc 56.0 48.5 Estimated GFR 42 36 Vancomycin Loading Dose: 2000 x1 Current Vancomycin Dosing Regimen: 1250 mg Q24H Vancomycin Monitoring using AUC goal of 400 - 600 range with trough as surrogate marker: 486 Date and Time for next Vancomycin Level to be drawn: 11/04 @0600 Pharmacist Comments on Vancomycin Plan: Scr elevated, dosed at 0800 for trough to be drawn @0600 on 11/04. Vancomycin dosing will take advantage of [employer] as a clinical decision support tool that uses Bayesian modeling to calculate individual patient's pharmacokinetic parameters and forecast the patient's drug concentration time course with the target goal AUC 24 range of 400 - 600 mg/L/hr.
[2023-11-03 06:43] LABS: Glucose, Whole Blood 325 mg/dL (60-115)
[2023-11-03] MEDS: Insulin Glargine,Hum.rec.anlog 100 UNIT/ML 10 ML VIAL 55 UNIT SUBCUT (07:01)
[2023-11-03] MEDS: Insulin Regular, Human 100 UNIT/ML 3 ML VIAL IVPUSH (07:02)
[2023-11-03 07:59] LABS: Glucose, Whole Blood 233 mg/dL (60-115)
[2023-11-03 08:19] LABS: Estimated Average Glucose 194 mg/dL; Hemoglobin A1c % 8.4 % (<6.0)
[2023-11-03] MEDS: Enoxaparin Sodium 40 MG/0.4 ML SYRINGE SUBCUT (08:24)
[2023-11-03] MEDS: Insulin Lispro 100 UNIT/ML 3 ML VIAL SUBCUT ×4 (08:25→21:29)
[2023-11-03] MEDS: 0.9 % Sodium Chloride Flush 3 ML SYRINGE IVFLUSH ×2 (08:25→13:27)
--- NOTE | 2023-11-03 08:49 | PHA.MEDREC ---
Addendum entered by Jorden Boston 11/03/23 09:00: Patient reports to still be taking amlodipine 5mg daily, last date filled per claim history was 01/19/2023. However, Dr. Lopez's plan in the patient's primary care visit on 10/06/2023 stated that the patient should continue amlodipine 5 mg daily along with irbesartan 300 mg daily and Atenolol 50 mg daily. Leaving Amlodipine on med rec as patient attests to still taking it. Original Note: Pharmacy Consult ? Medication Reconciliation Pharmacy has completed the medication reconciliation.
--- NOTE | 2023-11-03 10:29 | MHC.CM.PN ---
IMM DELIVERED PT LIVES ALONE. 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 PT INDEPENDENT AT BASELINE. PT USES C-PAP AT NIGHT BUT FREQUENTLY FORGETS TO USE. VENDOR IS [facility]. +HCP PCP DR. CARRANZA DP: HOME, ? [facility] [place]. PT WILL FIND OWN RIDE HOME. CM WILL CONTINUE TO FOLLOW FOR ANY CHANGE TO DC PLAN/NEEDS.
[2023-11-03 11:02] LABS: Glucose, Whole Blood 270 mg/dL (60-115)
[2023-11-03] MEDS: Morphine Sulfate 2 MG/ML CARTRIDGE IVPUSH ×3 (11:51→20:22)
[2023-11-03] MEDS: gadobutroL 10 ML VIAL IVPUSH (13:00)
--- NOTE | 2023-11-03 14:59 | PM.EVENT ---
Event Note Date of Service: 11/03/23 Event Note: Seen and evaluated this morning reporting pain in RLE Continue broad spectrum antibiotics pending blood culture MRI showing large abscess with no definite osteomyelitis. first MTP arthritis and marked fragmentation of first metatarsal head. ID and surgery consults Time Spent With Patient Time: Total time managing care of this patient today ____ minutes.
[2023-11-03 16:08] LABS: Glucose, Whole Blood 239 mg/dL (60-115)
[2023-11-03] MEDS: amLODIPine Besylate 5 MG TABLET PO (16:38)
[2023-11-03] MEDS: Mirtazapine 15 MG TABLET PO (20:22)
[2023-11-03] MEDS: Omeprazole 40 MG CAPSULE.DR PO (20:22)
[2023-11-03 20:49] LABS: Glucose, Whole Blood 236 mg/dL (60-115)
[2023-11-04] MEDS: Piperacillin Sodium/Tazobactam 4.5 GM in 0.9 % Sodium Chloride 100 ML IV ×4 (00:07→17:08)
[2023-11-04] MEDS: 0.9 % Sodium Chloride Flush 3 ML SYRINGE IVFLUSH ×3 (00:07→17:08)
[2023-11-04 03:19] VITALS: BP 147/69; PULSE 58; RESP 16; TEMP 36; O2SAT 96
[2023-11-04 06:20] LABS: Hematocrit 27.8 % (42.0-52.0); Hemoglobin 9.4 g/dl (14.0-18.0); Mean Corpuscular HGB Conc 33.8 g/dl (31.0-36.0); Mean Corpuscular Volume 88.8 fL (80.0-98.0); Mean Platelet Volume 10.9 fL (9.4-12.4); Platelet Count 264 X10*3/uL (160-400); Red Blood Count 3.13 X10*6/uL (4.60-5.80); Red Cell Distribution Width 13.1 % (11.0-16.0); White Blood Count 8.9 X10*3/uL (4.8-10.8)
[2023-11-04 06:48] LABS: Anion Gap 15 (12-20); Blood Urea Nitrogen 23 mg/dL (9-16); Calcium 8.7 mg/dL (8.4-10.2); Carbon Dioxide 18 mmol/L (22-29); Chloride 104 mmol/L (96-108); Creatinine Clr Calc Pharmacy 60.8; Estimated Glomerular Filt Rate 46; Glucose Random 188 mg/dL (60-115); Potassium 4.3 mmol/L (3.3-5.1); Sodium 133 mmol/L (135-145)
[2023-11-04 06:57] VITALS: BP 160/70; PULSE 64; RESP 17; TEMP 36.1; O2SAT 96
[2023-11-04 07:22] LABS: Glucose, Whole Blood 167 mg/dL (60-115)
[2023-11-04] MEDS: Enoxaparin Sodium 40 MG/0.4 ML SYRINGE SUBCUT (08:06)
[2023-11-04] MEDS: Insulin Lispro 100 UNIT/ML 3 ML VIAL SUBCUT ×4 (08:06→22:01)
[2023-11-04] MEDS: Atorvastatin Calcium 40 MG TABLET PO (08:06)
[2023-11-04 08:07] VITALS: BP 160/70; PULSE 76
[2023-11-04] MEDS: atenoloL 50 MG TABLET PO (08:07)
[2023-11-04] MEDS: FLUoxetine HCl 20 MG CAPSULE 60 MG PO (08:07)
[2023-11-04 08:08] VITALS: BP 160/70
[2023-11-04] MEDS: Omeprazole 40 MG CAPSULE.DR PO ×2 (08:08→22:02)
[2023-11-04] MEDS: Pyridoxine HCl (Vitamin B6) 50 MG TABLET PO (08:08)
[2023-11-04] MEDS: amLODIPine Besylate 5 MG TABLET PO (08:08)
[2023-11-04] MEDS: vancomycin HCL 1,250 MG in 0.9 % Sodium Chloride 250 ML 166.67 MG IV (08:09)
[2023-11-04] MEDS: Sennosides 8.6 MG TABLET 17.2 MG PO (08:10)
[2023-11-04] MEDS: Aspirin Enteric Coated 81 MG TABLET.DR PO (08:18)
[2023-11-04] MEDS: Insulin Glargine,Hum.rec.anlog 100 UNIT/ML 10 ML VIAL 70 UNIT SUBCUT (08:19)
[2023-11-04] MEDS: Morphine Sulfate 2 MG/ML CARTRIDGE IVPUSH ×3 (08:50→22:01)
--- NOTE | 2023-11-04 09:59 | HE.PHANOTE ---
Re: Aimeo Continue current dose of 1250mg q24h, predicted trough 12.7, AUC 411. Next trough 11/04 at 0600.
--- NOTE | 2023-11-04 10:27 | MHC.CM.PN ---
EMR reviewed. Per MD rounds patient not medically cleared for dc, awaiting ID and surg consults. CM will continue to follow along.
--- NOTE | 2023-11-04 10:44 | HO.PM.IMPN ---
Subjective Subjective Date of Service: 11/04/23 Interval History: Seen and evaluated this morning complaining of pain in his foot MRI showing abscess but no OM pending cultures Review of Systems Review of Systems: Yes all other systems are reviewed and are negative Physical Exam Vital Signs: Vital Signs: Last Vital Signs Temp 97 F 11/04/23 06:57 Pulse 76 11/04/23 08:07 Resp 17 11/04/23 06:57 BP 160/70 H 11/04/23 08:08 Pulse Ox 96 11/04/23 06:57 O2 Del Method Room Air 11/04/23 06:57 BMI result Body Mass Index 32.5 Const: Other: Constitutional : Awake, interactive, not in distress Neck : Normal inspection, Supple Cardiovascular : RRR, no JVP, no lower extremity edema Respiratory : good bilateral air entry, no crackles, wheezes or rhonchi Gastrointestinal: soft, lax, Normal bowel sounds, Non tender Skin : Warm, Dry, Swelling of the left right base of greater toe with surrounding erythema Neurological : Alert & oriented x3, No focal deficit Objective Data Active Medications Acetaminophen (Acetaminophen 325 Mg Tablet) 650 mg PO Q6H PRN PRN Reason: Pain, Mild (Pain Scale 1-3) Last Admin: 11/03/23 02:26 Dose: 650 mg Documented By: RICCARDO Albuterol Sulfate (Albuterol Sulfate 90 Mcg 8 Gm Inhaler) 2 puff INHALE RQ6H PRN PRN Reason: shortness of breath or wheezing Amlodipine Besylate (Amlodipine Besylate 5 Mg Tablet) 5 mg PO DAILY [facility]; Protocol Last Admin: 11/04/23 08:08 Dose: 5 mg Documented By: LINDA Aspirin (Aspirin Enteric Coated 81 Mg Tablet.) 81 mg PO DAILY [facility] Last Admin: 11/04/23 08:18 Dose: 81 mg Documented By: LINDA Atenolol (Atenolol 50 Mg Tablet) 50 mg PO DAILY [facility]; Protocol Last Admin: 11/04/23 08:07 Dose: 50 mg Documented By: LINDA Atorvastatin Calcium (Atorvastatin Calcium 40 Mg Tablet) 40 mg PO DAILY [facility] Last Admin: 11/04/23 08:06 Dose: 40 mg Documented By: LINDA Enoxaparin Sodium (Enoxaparin Sodium 40 Mg/0.4 Ml Syringe) 40 mg SUBCUT Q24H [facility] Last Admin: 11/04/23 08:06 Dose: 40 mg Documented By: LINDA Fluoxetine HCl (Fluoxetine Hcl 20 Mg Capsule) 60 mg PO DAILY [facility] Last Admin: 11/04/23 08:07 Dose: 60 mg Documented By: LINDA Fluticasone Propionate (Fluticasone Propionate Nasal 16 Gm [place]) 1 spray NOSTRIL-B DAILY [facility] Glucose (Glucose Gel 15 Gm Gel..Gram.) 15 gm PO Q15M PRN; Protocol PRN Reason: per Hypoglycemia Standing Ord. Dextrose (D10) 250 mls @ 750 mls/hr IV Q15M PRN; Protocol PRN Reason: per Hypoglycemia Standing Ord. Piperacillin Sod/Tazobactam (Sod 4.5 gm/ Sodium Chloride) 100 mls @ 200 mls/hr IV Q6H [facility] Last Infusion: 11/04/23 06:12 Dose: Infused Documented By: CHANTELLE Vancomycin HCl 1,250 mg/ (Sodium Chloride) 250 mls @ 166.667 mls/hr IV Q24H [facility] Last Infusion: 11/04/23 09:53 Dose: Infused Documented By: LINDA Insulin Glargine (Insulin Glargine,Hum.Rec.Anlog 100 Unit/Ml 10 Ml Vial) 55 unit SUBCUT DAILY [facility] Last Admin: 11/04/23 08:19 Dose: Not Given Documented By: LINDA Non-Admin Reason: Duplicate Order Insulin Glargine (Insulin Glargine,Hum.Rec.Anlog 100 Unit/Ml 10 Ml Vial) 70 unit SUBCUT DAILY [facility] Last Admin: 11/04/23 08:19 Dose: 70 unit Documented By: LINDA Insulin Human Lispro (Insulin Lispro 100 Unit/Ml 3 Ml Vial) 0 unit SUBCUT QIDACHS [facility]; Protocol Last Admin: 11/04/23 08:06 Dose: 2 unit Documented By: LINDA Melatonin (Melatonin 3 Mg Tablet) 6 mg PO BEDTIME PRN PRN Reason: Insomnia Mirtazapine (Mirtazapine 15 Mg Tablet) 15 mg PO BEDTIME [facility] Last Admin: 11/03/23 20:22 Dose: 15 mg Documented By: CHANTELLE Morphine Sulfate (Morphine Sulfate 2 Mg/Ml Cartridge) 2 mg IVPUSH Q4H PRN; Protocol PRN Reason: Pain, Severe (Pain Scale 7-10) Last Admin: 11/04/23 08:50 Dose: 2 mg Documented By: LINDA Omeprazole (Omeprazole 40 Mg Capsule.Dr) 40 mg PO BID [facility] Last Admin: 11/04/23 08:08 Dose: 40 mg Documented By: LINDA Ondansetron HCl (Ondansetron Hcl 4 Mg/2 Ml Vial) 4 mg IVPUSH Q8H PRN PRN Reason: Nausea and Vomiting Pharmacy Consult (Consult Rx Vancomycin Dosing) 1 each MISCELLANE DAILY PRN PRN Reason: Consult order Pyridoxine HCl (Pyridoxine Hcl (Vitamin B6) 50 Mg Tablet) 50 mg PO DAILY [facility] Last Admin: 11/04/23 08:08 Dose: 50 mg Documented By: LINDA Senna (Sennosides 8.6 Mg Tablet) 17.2 mg PO DAILY [facility] Last Admin: 11/04/23 08:10 Dose: 17.2 mg Documented By: LINDA Sodium Chloride (0.9 % Sodium Chloride Flush 3 Ml Syringe) 3 [facility] Last Admin: 11/04/23 08:08 Dose: 3 ml Documented By: LINDA Labs 11/04/23 05:52 11/04/23 05:52 Labs: Laboratory Results - last 24 hr 11/03/23 11/03/23 11/03/23 10:58 16:04 20:04 MCV MCH MCHC RDW Plt Count MPV Absolute Nucleated RBC Nucleated RBC % (auto) Anion Gap Estim Creat Clear Calc Estimated GFR POC Glucose 270 H 239 H 236 H Random Glucose Calcium 11/04/23 11/04/23 11/04/23 05:52 05:52 05:52 MCV 88.8 MCH 30.0 MCHC 33.8 RDW 13.1 Plt Count 264 MPV 10.9 Absolute Nucleated RBC 0.000 Nucleated RBC % (auto) 0.0 Anion Gap 15 Estim Creat Clear Calc 60.8 60.0 Estimated GFR 46 46 POC Glucose Random Glucose 188 H Calcium 8.7 11/04/23 07:18 MCV MCH MCHC RDW Plt Count MPV Absolute Nucleated RBC Nucleated RBC % (auto) Anion Gap Estim Creat Clear Calc Estimated GFR POC Glucose 167 H Random Glucose Calcium Microbiology Microbiology Results: Microbiology 11/03/23 02:03 Gram Stain - Final Foot Right Routine Culture - Preliminary Culture in progress. 11/03/23 00:07 Blood Culture - Preliminary Blood - Venous No growth after 24 hours. 11/02/23 19:56 Blood Culture - Preliminary Blood - Venous No growth after 24 hours. 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 # Sepsis due to right foot diabetic foot infection with abscess and cellulitis Sepsis resolved MRI showing abscess but no clear OM DC IV crystalloids pending blood culture IV Vancomycin and Zosyn Surgery for abscess tx ID consult follow Vanco trough # Insulin-dependent diabetes mellitus with hyperglycemia basal plus insulin regimen # Mixed hyperlipidemia: On statin # Hypertension: Continue home antihypertensives # Mood disorder: Continue home mood stabilizers # Chronic kidney disease stage 3: Creatinine at baseline. Continue to monitor and avoid nephrotoxins # Gastroesophageal reflux disease: On PPI DVT prophylaxis: Lovenox Full Code Needs inpatient stay overnight in hospital for IV antibiotics pending final cultures 0, which is not possible in a lesser acute setting. Quality Stroke Does the patient have a stroke diagnosis?: No VTE Prior VTE?: No VTE Risk Level:: Medical - moderate - high VTE Device Contraindication: Treatment Not Indicated VTE Drug Contraindication: N/A - Med Ordered
--- NOTE | 2023-11-04 11:12 | P.CONGS_ITS ---
History of Present Illness Consult details Consult date: 11/04/23 Requesting physician: Salvador Johnson Narrative: 68-year-old male patient presenting with pain in the right foot. Patient was found to have an area of redness and discharge which is been ongoing but increasing in severity. He previously underwent debridement of the right 1st metatarsal phalangeal joint due to previous infection. He now presents with an area of necrotic changes overlying the 1st MP joint with a surrounding area of erythema. He has been admitted to the hospitalist service for IV antibiotics. MRI reveals an abscess at the 1st MP joint. While in the emergency department this was incised and drained. Surgical consultation was requested for further management of this wound. Review of Systems 2 Review of Systems: Yes all other systems are reviewed and are negative Constitutional: Constitutional: Denies chills, Denies fever(s), Denies headache(s), Denies poor appetite and Denies weakness ENT: Denies headache(s) Cardiovascular: Cardiovascular: Denies chest pain, Denies irregular heart rhythm, Denies palpitations and Denies dyspnea Respiratory: Respiratory: Denies cough, Denies excessive phlegm production and Denies dyspnea Gastrointestinal: Gastrointestinal: Denies abdominal pain, Denies bloating, Denies change in bowel habits, Denies constipation, Denies heartburn, Denies diarrhea, Denies nausea and Denies vomiting Genitourinary: Genitourinary: Denies difficulty urinating and Denies urinary frequency Musculoskeletal: Musculoskeletal: Reports as per HPI, Denies back pain, Denies muscle weakness and Denies numbness Integumentary/Breasts: Skin/Breast: Denies changing lesions and Denies unusual bruising Neurologic: Denies headache(s), Denies numbness, Denies paresthesias and Denies weakness Psychiatric: Psychiatric: Denies anxiety and Denies depression Endocrine: Endocrine: Denies palpitations Hematologic/Lymphatic: Hematologic/Lymphatic: Denies lymphadenopathy PMFSH Past Medical History Medical History Type 2 diabetes mellitus with stage 3b chronic kidney disease, with long-term current use of insulin Mixed hyperlipidemia Obstructive sleep apnea Memory impairment Environmental allergies Chronic kidney disease (CKD), stage III (moderate) Prostate cancer screening H/O hyperkalemia Recurrent cough Obesity (BMI 30-39.9) Depression Anxiety Insomnia Primary osteoarthritis, left shoulder Crohn's disease GERD (gastroesophageal reflux disease) Pure hypercholesterolemia Benign essential hypertension Microalbuminuria USP (current) use of insulin Type 2 diabetes mellitus with diabetic polyneuropathy Allergic rhinitis Family History Family History Father Diabetes Melanoma Mother Diabetes Hypertension Cancer Sister Diabetes Surgical History Surgical History History of esophagogastroduodenoscopy (EGD) Hx of colonoscopy History of umbilical hernia repair Social History Social History Household Members: None Housing: Apartment Do you presently have visiting nurse or other home services: No Alcohol intake: former Patient Tobacco Use Status: Former Tobacco user Quit Date: 3 months ago e-Cigarette/Vaping Use: Never Used Second Hand Smoke Exposure: No service: No Current occupational status: employed Cognitive needs: No Hearing needs: No Vision needs: No Meds Allergies Allergy/AdvReac Type Severity Reaction Status Date / Time sertraline [SERTRALINE] Allergy Severe RASH, ABD Verified 11/02/23 19:39 PAIN DEHYDRATION Penicillins [PENICILLINS] Allergy Intermediate RASH Verified 11/02/23 19:39 Active Medications: Current Medications Acetaminophen (Acetaminophen 325 Mg Tablet) 650 mg PO Q6H PRN PRN Reason: Pain, Mild (Pain Scale 1-3) Last Admin: 11/03/23 02:26 Dose: 650 mg Albuterol Sulfate (Albuterol Sulfate 90 Mcg 8 Gm Inhaler) 2 puff INHALE RQ6H PRN PRN Reason: shortness of breath or wheezing Amlodipine Besylate (Amlodipine Besylate 5 Mg Tablet) 5 mg PO DAILY [facility]; Protocol Last Admin: 11/04/23 08:08 Dose: 5 mg Aspirin (Aspirin Enteric Coated 81 Mg Tablet.Dr) 81 mg PO DAILY [facility] Last Admin: 11/04/23 08:18 Dose: 81 mg Atenolol (Atenolol 50 Mg Tablet) 50 mg PO DAILY [facility]; Protocol Last Admin: 11/04/23 08:07 Dose: 50 mg Atorvastatin Calcium (Atorvastatin Calcium 40 Mg Tablet) 40 mg PO DAILY [facility] Last Admin: 11/04/23 08:06 Dose: 40 mg Enoxaparin Sodium (Enoxaparin Sodium 40 Mg/0.4 Ml Syringe) 40 mg SUBCUT Q24H [facility] Last Admin: 11/04/23 08:06 Dose: 40 mg Fluoxetine HCl (Fluoxetine Hcl 20 Mg Capsule) 60 mg PO DAILY [facility] Last Admin: 11/04/23 08:07 Dose: 60 mg Fluticasone Propionate (Fluticasone Propionate Nasal 16 Gm [employer]) 1 spray NOSTRIL-B DAILY [facility] Glucose (Glucose Gel 15 Gm Gel..Gram.) 15 gm PO Q15M PRN; Protocol PRN Reason: per Hypoglycemia Standing Ord. Dextrose (D10) 250 mls @ 750 mls/hr IV Q15M PRN; Protocol PRN Reason: per Hypoglycemia Standing Ord. Piperacillin Sod/Tazobactam (Sod 4.5 gm/ Sodium Chloride) 100 mls @ 200 mls/hr IV Q6H [facility] Last Infusion: 11/04/23 06:12 Dose: Infused Vancomycin HCl 1,250 mg/ (Sodium Chloride) 250 mls @ 166.667 mls/hr IV Q24H [facility] Last Infusion: 11/04/23 09:53 Dose: Infused Insulin Glargine (Insulin Glargine,Hum.Rec.Anlog 100 Unit/Ml 10 Ml Vial) 55 unit SUBCUT DAILY [facility] Last Admin: 11/04/23 08:19 Dose: Not Given Insulin Glargine (Insulin Glargine,Hum.Rec.Anlog 100 Unit/Ml 10 Ml Vial) 70 unit SUBCUT DAILY [facility] Last Admin: 11/04/23 08:19 Dose: 70 unit Insulin Human Lispro (Insulin Lispro 100 Unit/Ml 3 Ml Vial) 0 unit SUBCUT QIDACHS [facility]; Protocol Last Admin: 11/04/23 08:06 Dose: 2 unit Melatonin (Melatonin 3 Mg Tablet) 6 mg PO BEDTIME PRN PRN Reason: Insomnia Mirtazapine (Mirtazapine 15 Mg Tablet) 15 mg PO BEDTIME [facility] Last Admin: 11/03/23 20:22 Dose: 15 mg Morphine Sulfate (Morphine Sulfate 2 Mg/Ml Cartridge) 2 mg IVPUSH Q4H PRN; Protocol PRN Reason: Pain, Severe (Pain Scale 7-10) Last Admin: 11/04/23 08:50 Dose: 2 mg Omeprazole (Omeprazole 40 Mg Capsule.Dr) 40 mg PO BID [facility] Last Admin: 11/04/23 08:08 Dose: 40 mg Ondansetron HCl (Ondansetron Hcl 4 Mg/2 Ml Vial) 4 mg IVPUSH Q8H PRN PRN Reason: Nausea and Vomiting Pharmacy Consult (Consult Rx Vancomycin Dosing) 1 each MISCELLANE DAILY PRN PRN Reason: Consult order Pyridoxine HCl (Pyridoxine Hcl (Vitamin B6) 50 Mg Tablet) 50 mg PO DAILY [facility] Last Admin: 11/04/23 08:08 Dose: 50 mg Senna (Sennosides 8.6 Mg Tablet) 17.2 mg PO DAILY [facility] Last Admin: 11/04/23 08:10 Dose: 17.2 mg Sodium Chloride (0.9 % Sodium Chloride Flush 3 Ml Syringe) 3 ml IVFLUSH QSHIFT [facility] Last Admin: 11/04/23 08:08 Dose: 3 ml Home Medications ?Medication ?Instructions ?Recorded ?Confirmed ?Last Taken ?Type aspirin 81 mg tablet,delayed 81 mg PO DAILY 04/10/20 11/03/23 04/18/21 10:00 History release (Adult Low Dose Aspirin) blood pressure test kit-wrist 02/15/21 10/06/23 Unknown History cyanocobalamin (vitamin B-12) 1,000 mcg PO DAILY 11/03/23 11/03/23 Unknown History 1,000 mcg tablet sennosides 8.6 mg tablet (senna) 17.2 mg PO DAILY 11/03/23 11/03/23 Unknown History Physical Exam 2 Vital Signs: Vital Signs: Last Vital Signs Temp 97 F 11/04/23 06:57 Pulse 76 11/04/23 08:07 Resp 17 11/04/23 06:57 BP 160/70 H 11/04/23 08:08 Pulse Ox 96 11/04/23 06:57 O2 Del Method Room Air 11/04/23 06:57 BMI result Body Mass Index 32.5 Extrem: Other: Right foot great toe at the medial 1st MP is an area of skin necrosis with an open wound following a previous incision and drainage. A surrounding area of erythema is noted on the forefoot. Results Labs 11/04/23 05:52 11/04/23 05:52 Labs: Abnormal lab results 11/03/23 11/03/23 11/04/23 Range/Units 16:04 20:04 05:52 RBC 3.13 L (4.60-5.80) X10*6/uL Hgb 9.4 L (14.0-18.0) g/dl Hct 27.8 L (42.0-52.0) % Sodium 133 L (135-145) mmol/L Carbon Dioxide 18 L (22-29) mmol/L BUN 23 H (9-16) mg/dL Creatinine 1.50 H (0.5-1.4) mg/dL POC Glucose 239 H 236 H (60-115) mg/dL Random Glucose (60-115) mg/dL 11/04/23 11/04/23 Range/Units 05:52 07:18 RBC (4.60-5.80) X10*6/uL Hgb (14.0-18.0) g/dl Hct (42.0-52.0) % Sodium (135-145) mmol/L Carbon Dioxide (22-29) mmol/L BUN (9-16) mg/dL Creatinine 1.52 H (0.5-1.4) mg/dL POC Glucose 167 H (60-115) mg/dL Random Glucose 188 H (60-115) mg/dL Short CBC 11/04/23 Range/Units 05:52 WBC 8.9 (4.8-10.8) X10*3/uL Hgb 9.4 L (14.0-18.0) g/dl Hct 27.8 L (42.0-52.0) % Plt Count 264 (160-400) X10*3/uL BMP 11/04/23 11/04/23 05:52 05:52 Sodium 133 L Potassium 4.3 Chloride 104 Carbon Dioxide 18 L BUN 23 H Creatinine 1.50 H 1.52 H Calcium 8.7 All other labs normal. Assessment and Plan (1) Cellulitis: Qualifiers: Laterality: right Site of cellulitis: extremity Site of cellulitis of extremity: toe Qualified Code(s): L03.031 - Cellulitis of right toe Status: Acute (2) Acute osteomyelitis of phalanx of right foot: Status: Acute Plan 68-year-old male patient presenting with an abscess and necrotic changes of the right foot located at the base of the great toe as noted above. Abscess is identified on MRI which appears to be drained. Of more concern is the area of necrotic skin overlying this abscess. I recommended debridement of this infected skin, subcutaneous tissue and possible bone. He has been added onto the operative schedule for tomorrow. After discussion of the procedure, risks, and alternatives, he consents to the debridement of the right foot ulcer. Procedures Date of Service Date of Service: 11/04/23
[2023-11-04 11:15] LABS: Glucose, Whole Blood 269 mg/dL (60-115)
[2023-11-04 15:24] VITALS: BP 177/72; PULSE 54; RESP 18; TEMP 36.2; O2SAT 96
--- NOTE | 2023-11-04 15:58 | P.CNID_ITS ---
History of Present Illness Data of Consult Service Date: 11/03/23 Requesting physician: Salvador Johnson Primary Care Provider: Marcelo Lopez MD HPI Reason for consult: diabetic foot wound He presents with four days right foot discomfort. He has wound MRI show 4.3 cm abscess and no OM. No cultures available. Review of Systems 2 Review of Systems: Yes all other systems are reviewed and are negative [facility] Past Medical History Medical History Type 2 diabetes mellitus with stage 3b chronic kidney disease, with long-term current use of insulin Mixed hyperlipidemia Obstructive sleep apnea Memory impairment Environmental allergies Chronic kidney disease (CKD), stage III (moderate) Prostate cancer screening H/O hyperkalemia Recurrent cough Obesity (BMI 30-39.9) Depression Anxiety Insomnia Primary osteoarthritis, left shoulder Crohn's disease GERD (gastroesophageal reflux disease) Pure hypercholesterolemia Benign essential hypertension Microalbuminuria advice line rn (current) use of insulin Type 2 diabetes mellitus with diabetic polyneuropathy Allergic rhinitis Family History Family History Father Diabetes Melanoma Mother Diabetes Hypertension Cancer Sister Diabetes Surgical History Surgical History History of esophagogastroduodenoscopy (EGD) Hx of colonoscopy History of umbilical hernia repair Social History Social History Household Members: None Housing: Apartment Do you presently have visiting nurse or other home services: No Alcohol intake: former Patient Tobacco Use Status: Former Tobacco user Quit Date: 3 months ago e-Cigarette/Vaping Use: Never Used Second Hand Smoke Exposure: No service: No Current occupational status: employed Cognitive needs: No Hearing needs: No Vision needs: No Meds Allergies Allergy/AdvReac Type Severity Reaction Status Date / Time sertraline [SERTRALINE] Allergy Severe RASH, ABD Verified 11/02/23 19:39 PAIN DEHYDRATION Penicillins [PENICILLINS] Allergy Intermediate RASH Verified 11/02/23 19:39 Active Medications: Current Medications Acetaminophen (Acetaminophen 325 Mg Tablet) 650 mg PO Q6H PRN PRN Reason: Pain, Mild (Pain Scale 1-3) Last Admin: 11/03/23 02:26 Dose: 650 mg Albuterol Sulfate (Albuterol Sulfate 90 Mcg 8 Gm Inhaler) 2 puff INHALE RQ6H PRN PRN Reason: shortness of breath or wheezing Amlodipine Besylate (Amlodipine Besylate 5 Mg Tablet) 5 mg PO DAILY [facility]; Protocol Last Admin: 11/04/23 08:08 Dose: 5 mg Aspirin (Aspirin Enteric Coated 81 Mg Tablet.Dr) 81 mg PO DAILY [facility] Last Admin: 11/04/23 08:18 Dose: 81 mg Atenolol (Atenolol 50 Mg Tablet) 50 mg PO DAILY [facility]; Protocol Last Admin: 11/04/23 08:07 Dose: 50 mg Atorvastatin Calcium (Atorvastatin Calcium 40 Mg Tablet) 40 mg PO DAILY [facility] Last Admin: 11/04/23 08:06 Dose: 40 mg Enoxaparin Sodium (Enoxaparin Sodium 40 Mg/0.4 Ml Syringe) 40 mg SUBCUT Q24H [facility] Last Admin: 11/04/23 08:06 Dose: 40 mg Fluoxetine HCl (Fluoxetine Hcl 20 Mg Capsule) 60 mg PO DAILY [facility] Last Admin: 11/04/23 08:07 Dose: 60 mg Fluticasone Propionate (Fluticasone Propionate Nasal 16 Gm [place]) 1 spray NOSTRIL-B DAILY [facility] Last Admin: 11/04/23 11:25 Dose: Not Given Glucose (Glucose Gel 15 Gm Gel..Gram.) 15 gm PO Q15M PRN; Protocol PRN Reason: per Hypoglycemia Standing Ord. Dextrose (D10) 250 mls @ 750 mls/hr IV Q15M PRN; Protocol PRN Reason: per Hypoglycemia Standing Ord. Piperacillin Sod/Tazobactam (Sod 4.5 gm/ Sodium Chloride) 100 mls @ 200 mls/hr IV Q6H [facility] Last Infusion: 11/04/23 12:29 Dose: Infused Vancomycin HCl 1,250 mg/ (Sodium Chloride) 250 mls @ 166.667 mls/hr IV Q24H [facility] Last Infusion: 11/04/23 09:53 Dose: Infused Insulin Glargine (Insulin Glargine,Hum.Rec.Anlog 100 Unit/Ml 10 Ml Vial) 55 unit SUBCUT DAILY [facility] Last Admin: 11/04/23 08:19 Dose: Not Given Insulin Glargine (Insulin Glargine,Hum.Rec.Anlog 100 Unit/Ml 10 Ml Vial) 70 unit SUBCUT DAILY [facility] Last Admin: 11/04/23 08:19 Dose: 70 unit Insulin Human Lispro (Insulin Lispro 100 Unit/Ml 3 Ml Vial) 0 unit SUBCUT QIDACHS [facility]; Protocol Last Admin: 11/04/23 11:45 Dose: 6 unit Melatonin (Melatonin 3 Mg Tablet) 6 mg PO BEDTIME PRN PRN Reason: Insomnia Mirtazapine (Mirtazapine 15 Mg Tablet) 15 mg PO BEDTIME [facility] Last Admin: 11/03/23 20:22 Dose: 15 mg Morphine Sulfate (Morphine Sulfate 2 Mg/Ml Cartridge) 2 mg IVPUSH Q4H PRN; Protocol PRN Reason: Pain, Severe (Pain Scale 7-10) Last Admin: 11/04/23 15:49 Dose: 2 mg Omeprazole (Omeprazole 40 Mg Capsule.Dr) 40 mg PO BID [facility] Last Admin: 11/04/23 08:08 Dose: 40 mg Ondansetron HCl (Ondansetron Hcl 4 Mg/2 Ml Vial) 4 mg IVPUSH Q8H PRN PRN Reason: Nausea and Vomiting Pharmacy Consult (Consult Rx Vancomycin Dosing) 1 each MISCELLANE DAILY PRN PRN Reason: Consult order Pyridoxine HCl (Pyridoxine Hcl (Vitamin B6) 50 Mg Tablet) 50 mg PO DAILY [facility] Last Admin: 11/04/23 08:08 Dose: 50 mg Senna (Sennosides 8.6 Mg Tablet) 17.2 mg PO DAILY [facility] Last Admin: 11/04/23 08:10 Dose: 17.2 mg Sodium Chloride (0.9 % Sodium Chloride Flush 3 Ml Syringe) [address] [facility] Last Admin: 11/04/23 08:08 Dose: 3 ml Home Medications ?Medication ?Instructions ?Recorded ?Confirmed ?Last Taken ?Type aspirin 81 mg tablet,delayed 81 mg PO DAILY 04/10/20 11/03/23 04/18/21 10:00 History release (Adult Low Dose Aspirin) blood pressure test kit-wrist 02/15/21 10/06/23 Unknown History cyanocobalamin (vitamin B-12) 1,000 mcg PO DAILY 11/03/23 11/03/23 Unknown History 1,000 mcg tablet sennosides 8.6 mg tablet (senna) 17.2 mg PO DAILY 11/03/23 11/03/23 Unknown History Physical Exam 2 Vital Signs: Vital Signs: Last Vital Signs Temp 97.2 F 11/04/23 15:24 Pulse 54 11/04/23 15:24 Resp 18 11/04/23 15:24 BP 177/72 H 11/04/23 15:24 Pulse Ox 96 11/04/23 15:24 O2 Del Method Room Air 11/04/23 15:24 BMI result Body Mass Index 32.5 Const: General: cooperative HEENT: Head: Yes normal to inspection Face and sinus: Yes normal facial exam Mouth: Normal oral and palatal mucosa present Teeth and gingiva: d entition normal Eyes: General: appearance normal, both eyes and all related structures P upils: Equal, round and reactive pupils present Resp: Effort & Inspection: normal respiratory effort Cardio: Rate: regular rate Rhythm: regular rhythm GI: Palpation (GI): Soft to palpation and nontender : General: Yes no CVA tenderness Back/Spine/Pelvis: Back: no CVA tenderness Skin: General skin exam: no rashes or lesions noted Neuro: General: moves all extremities Cranial nerves: Yes Equal, round and reactive pupils present Extrem: Other: neuropathy first toe necrotic area Psych: Appearance: grossly normal Results Labs 11/04/23 05:52 11/04/23 05:52 Labs: Short CBC 11/04/23 Range/Units 05:52 WBC 8.9 (4.8-10.8) X10*3/uL Hgb 9.4 L (14.0-18.0) g/dl Hct 27.8 L (42.0-52.0) % Plt Count 264 (160-400) X10*3/uL BMP 11/04/23 11/04/23 05:52 05:52 Sodium 133 L Potassium 4.3 Chloride 104 Carbon Dioxide 18 L BUN 23 H Creatinine 1.50 H 1.52 H Calcium 8.7 Microbiology Microbiology Results: Microbiology 11/03/23 02:03 Foot Right Gram Stain - Final 11/03/23 02:03 Foot Right Routine Culture - Preliminary Culture in progress. 11/03/23 00:07 Blood - Venous Blood Culture - Preliminary No growth after 24 hours. 11/02/23 19:56 Blood - Venous Blood Culture - Preliminary No growth after 24 hours. Assessment and Plan (1) Sepsis: Status: Acute He has possible gram positive,gram negative,anerobes Would continue Vancomycin and zosyn, If no cultures revealing six weeks iv Vancomycin with weekly troughs and creatinine.
[2023-11-04 18:13] LABS: Glucose, Whole Blood 219 mg/dL (60-115)
[2023-11-04 19:06] VITALS: BP 157/69; PULSE 52; RESP 18; TEMP 36.2; O2SAT 98
[2023-11-04 20:00] LABS: Glucose, Whole Blood 224 mg/dL (60-115)
[2023-11-04] MEDS: Mirtazapine 15 MG TABLET PO (22:02)
[2023-11-04] MEDS: LORazepam 1 MG TABLET PO (22:13)
[2023-11-05] VITALS (9 sets, daily range): BP systolic 117–184; BP diastolic 56–84; PULSE 50–54; RESP 16–18; TEMP 36–36.7; O2SAT 93–99
[2023-11-05] MEDS: Piperacillin Sodium/Tazobactam 4.5 GM in 0.9 % Sodium Chloride 100 ML IV ×5 (00:42→23:55)
[2023-11-05] MEDS: 0.9 % Sodium Chloride Flush 3 ML SYRINGE IVFLUSH ×4 (00:43→21:33)
[2023-11-05 06:51] LABS: Anion Gap 14 (12-20); Blood Urea Nitrogen 24 mg/dL (9-16); Calcium 8.8 mg/dL (8.4-10.2); Carbon Dioxide 21 mmol/L (22-29); Chloride 105 mmol/L (96-108); Creatinine Clr Calc Pharmacy 57.8; Estimated Glomerular Filt Rate 44; Glucose Random 209 mg/dL (60-115); Hematocrit 28.8 % (42.0-52.0); Hemoglobin 9.3 g/dl (14.0-18.0); Mean Corpuscular HGB Conc 32.3 g/dl (31.0-36.0); Mean Corpuscular Hemoglobin 29.5 pg (27.0-33.0); Mean Corpuscular Volume 91.4 fL (80.0-98.0); Platelet Count 302 X10*3/uL (160-400); Potassium 4.7 mmol/L (3.3-5.1); Red Blood Count 3.15 X10*6/uL (4.60-5.80); Red Cell Distribution Width 13.2 % (11.0-16.0); Sodium 135 mmol/L (135-145); White Blood Count 7.4 X10*3/uL (4.8-10.8)
[2023-11-05 06:52] LABS: Creatinine Clr Calc Pharmacy 55.6; Estimated Glomerular Filt Rate 42
--- NOTE | 2023-11-05 06:56 | HE.PHANOTE ---
YAMINI Increasing dose to 1500 Q24H per random trending low. Predicted AUC 493, predicted trough 15.3. Next trough to be drawn 11/05 @0600.
[2023-11-05 07:43] LABS: Glucose, Whole Blood 185 mg/dL (60-115)
[2023-11-05] MEDS: vancomycin HCL 1,500 MG in 0.9 % Sodium Chloride 500 ML 333.33 MG IV (08:02)
[2023-11-05] MEDS: Insulin Glargine,Hum.rec.anlog 100 UNIT/ML 10 ML VIAL 35 UNIT SUBCUT (08:17)
[2023-11-05 08:49] LABS: Glucose, Whole Blood 183 mg/dL (60-115)
--- NOTE | 2023-11-05 09:17 | MHC.SHP ---
Pre-Procedural Eval Section A - 24 Hr Update-Section A only Date of Service: 11/05/23 The patient is an INPATIENT: Yes Section B - Complete if H&P > 30 days Chief Complaint: Foot Swelling Allergies: Allergies Allergy/AdvReac Type Severity Reaction Status Date / Time sertraline [SERTRALINE] Allergy Severe RASH, ABD Verified 11/02/23 19:39 PAIN DEHYDRATION Penicillins [PENICILLINS] Allergy Intermediate RASH Verified 11/02/23 19:39 Plan Diagnosis/Plan: Unchanged I have reviewed the history and physical and performed a pertinent physical examination on my patient. No changes have occurred unless specified. Time Spent With Patient Time: Total time managing care of this patient today ____ minutes.
--- NOTE | 2023-11-05 09:40 | P.CONAN_ITS ---
[facility] Active Problems Active Problems: All Active Problems Sepsis (Acute) Cellulitis (Acute) Peripheral neuropathy (Acute) Diabetic acidosis, type II (Acute) Acute osteomyelitis of phalanx of right foot (Acute) Type 2 diabetes mellitus with stage 3b chronic kidney disease, with long-term current use of insulin (Acute) Impingement syndrome, shoulder, left (Acute) Diabetes mellitus with hyperglycemia, with long-term current use of insulin (Acute) Cataract, left eye (Acute) Preoperative examination (Acute) Upper respiratory tract infection (Acute) Crohn's disease of colon (Acute) Hyperkalemia (Acute) Skin exam for malignant neoplasm (Acute) Pigmented skin lesions (Acute) Mixed hyperlipidemia (Acute) Anemia (Acute) Bradycardia (Acute) Constipation (Acute) Obstructive sleep apnea (Acute) Otitis media of both ears (Acute) Hearing loss (Acute) Memory impairment (Acute) Environmental allergies (Acute) Chronic kidney disease (CKD), stage III (moderate) (Acute) Epididymitis (Acute) Diabetic retinopathy (Acute) Alcohol use disorder (Acute) Hypoglycemia (Acute) Lower back pain (Acute) Left leg pain (Acute) Left shoulder pain (Acute) Prostate cancer screening (Acute) Annual physical exam (Acute) Throat congestion (Acute) Chewing tobacco nicotine dependence (Acute) Tinea unguium (Acute) History of colon polyps (Acute) Nausea and vomiting (Acute) Recurrent cough (Acute) Obesity (BMI 30-39.9) (Acute) Depression (Acute) Anxiety (Acute) Insomnia (Acute) Primary osteoarthritis, left shoulder (Acute) Crohn's disease (Acute) GERD (gastroesophageal reflux disease) (Acute) Pure hypercholesterolemia (Acute) Benign essential hypertension (Acute) Microalbuminuria (Acute) group home (current) use of insulin (Acute) Type 2 diabetes mellitus with diabetic polyneuropathy (Acute) Allergic rhinitis (Acute) Past Medical History Medical History Type 2 diabetes mellitus with stage 3b chronic kidney disease, with long-term current use of insulin Mixed hyperlipidemia Obstructive sleep apnea Memory impairment Environmental allergies Chronic kidney disease (CKD), stage III (moderate) Prostate cancer screening H/O hyperkalemia Recurrent cough Obesity (BMI 30-39.9) Depression Anxiety Insomnia Primary osteoarthritis, left shoulder Crohn's disease GERD (gastroesophageal reflux disease) Pure hypercholesterolemia Benign essential hypertension Microalbuminuria group home (current) use of insulin Type 2 diabetes mellitus with diabetic polyneuropathy Allergic rhinitis Family History Family History Father Diabetes Melanoma Mother Diabetes Hypertension Cancer Sister Diabetes Family history of problems with anesthesia: No Surgical History Surgical History History of esophagogastroduodenoscopy (EGD) Hx of colonoscopy History of umbilical hernia repair History of Problems with Anesthesia: No Social History Social History Household Members: None Housing: Apartment Do you presently have visiting nurse or other home services: No Alcohol intake: former Patient Tobacco Use Status: Former Tobacco user Quit Date: 3 months ago e-Cigarette/Vaping Use: Never Used Second Hand Smoke Exposure: No service: No Current occupational status: employed Cognitive needs: No Hearing needs: No Vision needs: No Meds Allergies Allergy/AdvReac Type Severity Reaction Status Date / Time sertraline [SERTRALINE] Allergy Severe RASH, ABD Verified 11/02/23 19:39 PAIN DEHYDRATION Penicillins [PENICILLINS] Allergy Intermediate RASH Verified 11/02/23 19:39 Active Medications: Current Medications Acetaminophen (Acetaminophen 325 Mg Tablet) 650 mg PO Q6H PRN PRN Reason: Pain, Mild (Pain Scale 1-3) Last Admin: 11/03/23 02:26 Dose: 650 mg Albuterol Sulfate (Albuterol Sulfate 90 Mcg 8 Gm Inhaler) 2 puff INHALE RQ6H PRN PRN Reason: shortness of breath or wheezing Amlodipine Besylate (Amlodipine Besylate 5 Mg Tablet) 5 mg PO DAILY [facility]; Protocol Last Admin: 11/04/23 08:08 Dose: 5 mg Aspirin (Aspirin Enteric Coated 81 Mg Tablet.Dr) 81 mg PO DAILY [facility] Last Admin: 11/04/23 08:18 Dose: 81 mg Atenolol (Atenolol 50 Mg Tablet) 50 mg PO DAILY [facility]; Protocol Last Admin: 11/04/23 08:07 Dose: 50 mg Atorvastatin Calcium (Atorvastatin Calcium 40 Mg Tablet) 40 mg PO DAILY [facility] Last Admin: 11/04/23 08:06 Dose: 40 mg Enoxaparin Sodium (Enoxaparin Sodium 40 Mg/0.4 Ml Syringe) 40 mg SUBCUT Q24H [facility] Last Admin: 11/04/23 08:06 Dose: 40 mg Fluoxetine HCl (Fluoxetine Hcl 20 Mg Capsule) 60 mg PO DAILY [facility] Last Admin: 11/04/23 08:07 Dose: 60 mg Fluticasone Propionate (Fluticasone Propionate Nasal 16 Gm [place]) 1 spray NOSTRIL-B DAILY [facility] Last Admin: 11/04/23 11:25 Dose: Not Given Glucose (Glucose Gel 15 Gm Gel..Gram.) 15 gm PO Q15M PRN; Protocol PRN Reason: per Hypoglycemia Standing Ord. Dextrose (D10) 250 mls @ 750 mls/hr IV Q15M PRN; Protocol PRN Reason: per Hypoglycemia Standing Ord. Piperacillin Sod/Tazobactam (Sod 4.5 gm/ Sodium Chloride) 100 mls @ 200 mls/hr IV Q6H [facility] Last Infusion: 11/05/23 06:43 Dose: Infused Vancomycin HCl 1,500 mg/ (Sodium Chloride) 500 mls @ 333.333 mls/hr IV Q24H [facility] Last Admin: 11/05/23 08:02 Dose: 333.33 mls/hr Insulin Glargine (Insulin Glargine,Hum.Rec.Anlog 100 Unit/Ml 10 Ml Vial) 35 unit SUBCUT DAILY [facility] Last Admin: 11/05/23 08:17 Dose: 35 unit Insulin Human Lispro (Insulin Lispro 100 Unit/Ml 3 Ml Vial) 0 unit SUBCUT QIDACHS [facility]; Protocol Last Admin: 11/05/23 08:11 Dose: Not Given Melatonin (Melatonin 3 Mg Tablet) 6 mg PO BEDTIME PRN PRN Reason: Insomnia Mirtazapine (Mirtazapine 15 Mg Tablet) 15 mg PO BEDTIME [facility] Last Admin: 11/04/23 22:02 Dose: 15 mg Morphine Sulfate (Morphine Sulfate 2 Mg/Ml Cartridge) 2 mg IVPUSH Q4H PRN; Protocol PRN Reason: Pain, Severe (Pain Scale 7-10) Last Admin: 11/04/23 22:01 Dose: 2 mg Omeprazole (Omeprazole 40 Mg Capsule.Dr) 40 mg PO BID [facility] Last Admin: 11/04/23 22:02 Dose: 40 mg Ondansetron HCl (Ondansetron Hcl 4 Mg/2 Ml Vial) 4 mg IVPUSH Q8H PRN PRN Reason: Nausea and Vomiting Pharmacy Consult (Consult Rx Vancomycin Dosing) 1 each MISCELLANE DAILY PRN PRN Reason: Consult order Pyridoxine HCl (Pyridoxine Hcl (Vitamin B6) 50 Mg Tablet) 50 mg PO DAILY [facility] Last Admin: 11/04/23 08:08 Dose: 50 mg Senna (Sennosides 8.6 Mg Tablet) 17.2 mg PO DAILY [facility] Last Admin: 11/04/23 08:10 Dose: 17.2 mg Sodium Chloride (0.9 % Sodium Chloride Flush 3 Ml Syringe) 3 ml IVFLUSH QSHIFT [facility] Last Admin: 11/05/23 08:06 Dose: 3 ml Home Medications ?Medication ?Instructions ?Recorded ?Confirmed ?Last Taken ?Type aspirin 81 mg tablet,delayed 81 mg PO DAILY 04/10/20 11/03/23 04/18/21 10:00 History release (Adult Low Dose Aspirin) blood pressure test kit-wrist 02/15/21 10/06/23 Unknown History cyanocobalamin (vitamin B-12) 1,000 mcg PO DAILY 11/03/23 11/03/23 Unknown History 1,000 mcg tablet sennosides 8.6 mg tablet (senna) 17.2 mg PO DAILY 11/03/23 11/03/23 Unknown History Exam Height,Weight and Vital Signs: Height 6 ft 1 in Weight 111.7 kg Last Vital Signs Temp 97.6 F 11/05/23 08:52 Pulse 53 11/05/23 08:52 Resp 18 11/05/23 08:52 BP 184/84 H 11/05/23 08:52 Pulse Ox 96 11/05/23 08:52 O2 Del Method Room Air 11/05/23 08:52 Pertinent Lab Results Pertinent Lab Results: Laboratory Tests 11/02/23 11/02/23 11/03/23 19:56 22:41 04:54 WBC 15.2 H 13.8 H RBC 3.79 L 3.12 L Hgb 11.5 L 9.3 L Hct 34.0 L 28.2 L MCV 89.7 90.4 MCH 30.3 29.8 MCHC 33.8 33.0 RDW 13.1 13.1 Plt Count 287 245 MPV 11.0 11.2 Immature Gran % (Auto) 0.6 H 0.9 H Neut % (Auto) 89.6 H 81.3 H Lymph % (Auto) 4.2 L 9.0 L Gove % (Auto) 5.2 8.3 Eos % (Auto) 0.1 0.3 Baso % (Auto) 0.3 0.2 Lymph # (Auto) 0.6 L 1.2 Gove # (Auto) 0.8 1.1 Eos # (Auto) 0.0 0.0 Baso # (Auto) 0.0 0.0 Abs Immat Gran (auto) 0.09 H 0.13 H Absolute Neuts (auto) 13.6 H 11.2 H Absolute Nucleated RBC 0.000 0.000 Nucleated RBC % (auto) 0.0 0.0 ESR 96 H Sodium 132 L 130 L Potassium 4.6 4.5 Chloride 99 103 Carbon Dioxide 20 L 16 L Anion Gap 18 16 BUN 22 H 27 H Creatinine 1.63 H 1.88 H Estim Creat Clear Calc 56.0 48.5 Estimated GFR 42 36 POC Glucose 264 H Random Glucose 235 H 306 H Estimat Average Glucose 194 Hemoglobin A1c % 8.4 H Lactic Acid 2.0 Calcium 9.7 8.5 D Total Bilirubin 1.8 H Direct Bilirubin 0.7 H AST 17 ALT 15 Alkaline Phosphatase 103 C-Reactive Protein 31.38 H Total Protein 7.5 Albumin 4.0 Random Vancomycin 11/03/23 11/03/23 11/03/23 06:38 07:56 10:58 WBC RBC Hgb Hct MCV MCH MCHC RDW Plt Count MPV Immature Gran % (Auto) Neut % (Auto) Lymph % (Auto) Gove % (Auto) Eos % (Auto) Baso % (Auto) Lymph # (Auto) Gove # (Auto) Eos # (Auto) Baso # (Auto) Abs Immat Gran (auto) Absolute Neuts (auto) Absolute Nucleated RBC Nucleated RBC % (auto) ESR Sodium Potassium Chloride Carbon Dioxide Anion Gap BUN Creatinine Estim Creat Clear Calc Estimated GFR POC Glucose 325 H 233 H 270 H Random Glucose Estimat Average Glucose Hemoglobin A1c % Lactic Acid Calcium Total Bilirubin Direct Bilirubin AST ALT Alkaline Phosphatase C-Reactive Protein Total Protein Albumin Random Vancomycin 11/03/23 11/03/23 11/04/23 16:04 20:04 05:52 WBC 8.9 RBC 3.13 L Hgb 9.4 L Hct 27.8 L MCV 88.8 MCH 30.0 MCHC 33.8 RDW 13.1 Plt Count 264 MPV 10.9 Immature Gran % (Auto) Neut % (Auto) Lymph % (Auto) Gove % (Auto) Eos % (Auto) Baso % (Auto) Lymph # (Auto) Gove # (Auto) Eos # (Auto) Baso # (Auto) Abs Immat Gran (auto) Absolute Neuts (auto) Absolute Nucleated RBC 0.000 Nucleated RBC % (auto) 0.0 ESR Sodium 133 L Potassium 4.3 Chloride 104 Carbon Dioxide 18 L Anion Gap 15 BUN 23 H Creatinine 1.50 H Estim Creat Clear Calc Estimated GFR POC Glucose 239 H 236 H Random Glucose Estimat Average Glucose Hemoglobin A1c % Lactic Acid Calcium Total Bilirubin Direct Bilirubin AST ALT Alkaline Phosphatase C-Reactive Protein Total Protein Albumin Random Vancomycin 11/04/23 11/04/23 11/04/23 05:52 05:52 05:52 WBC RBC Hgb Hct MCV MCH MCHC RDW Plt Count MPV Immature Gran % (Auto) Neut % (Auto) Lymph % (Auto) Gove % (Auto) Eos % (Auto) Baso % (Auto) Lymph # (Auto) Gove # (Auto) Eos # (Auto) Baso # (Auto) Abs Immat Gran (auto) Absolute Neuts (auto) Absolute Nucleated RBC Nucleated RBC % (auto) ESR Sodium Potassium Chloride Carbon Dioxide Anion Gap BUN Creatinine 1.52 H Estim Creat Clear Calc 60.8 60.0 Estimated GFR 46 46 POC Glucose Random Glucose 188 H Estimat Average Glucose Hemoglobin A1c % Lactic Acid Calcium 8.7 Total Bilirubin Direct Bilirubin AST ALT Alkaline Phosphatase C-Reactive Protein Total Protein Albumin Random Vancomycin 11/04/23 11/04/23 11/04/23 07:18 11:04 16:16 WBC RBC Hgb Hct MCV MCH MCHC RDW Plt Count MPV Immature Gran % (Auto) Neut % (Auto) Lymph % (Auto) Gove % (Auto) Eos % (Auto) Baso % (Auto) Lymph # (Auto) Gove # (Auto) Eos # (Auto) Baso # (Auto) Abs Immat Gran (auto) Absolute Neuts (auto) Absolute Nucleated RBC Nucleated RBC % (auto) ESR Sodium Potassium Chloride Carbon Dioxide Anion Gap BUN Creatinine Estim Creat Clear Calc Estimated GFR POC Glucose 167 H 269 H 219 H Random Glucose Estimat Average Glucose Hemoglobin A1c % Lactic Acid Calcium Total Bilirubin Direct Bilirubin AST ALT Alkaline Phosphatase C-Reactive Protein Total Protein Albumin Random Vancomycin 11/04/23 11/05/23 11/05/23 19:53 06:03 06:03 WBC 7.4 RBC 3.15 L Hgb 9.3 L Hct 28.8 L MCV 91.4 MCH 29.5 MCHC 32.3 RDW 13.2 Plt Count 302 MPV 11.0 Immature Gran % (Auto) Neut % (Auto) Lymph % (Auto) Gove % (Auto) Eos % (Auto) Baso % (Auto) Lymph # (Auto) Gove # (Auto) Eos # (Auto) Baso # (Auto) Abs Immat Gran (auto) Absolute Neuts (auto) Absolute Nucleated RBC 0.000 Nucleated RBC % (auto) 0.0 ESR Sodium 135 Potassium 4.7 Chloride 105 Carbon Dioxide 21 L Anion Gap 14 BUN 24 H Creatinine 1.64 H 1.58 H Estim Creat Clear Calc 55.6 Estimated GFR POC Glucose 224 H Random Glucose Estimat Average Glucose Hemoglobin A1c % Lactic Acid Calcium Total Bilirubin Direct Bilirubin AST ALT Alkaline Phosphatase C-Reactive Protein Total Protein Albumin Random Vancomycin 11/05/23 11/05/23 11/05/23 06:03 06:03 07:29 WBC RBC Hgb Hct MCV MCH MCHC RDW Plt Count MPV Immature Gran % (Auto) Neut % (Auto) Lymph % (Auto) Gove % (Auto) Eos % (Auto) Baso % (Auto) Lymph # (Auto) Gove # (Auto) Eos # (Auto) Baso # (Auto) Abs Immat Gran (auto) Absolute Neuts (auto) Absolute Nucleated RBC Nucleated RBC % (auto) ESR Sodium Potassium Chloride Carbon Dioxide Anion Gap BUN Creatinine Estim Creat Clear Calc 57.8 Estimated GFR 42 44 POC Glucose 185 H Random Glucose 209 H Estimat Average Glucose Hemoglobin A1c % Lactic Acid Calcium 8.8 Total Bilirubin Direct Bilirubin AST ALT Alkaline Phosphatase C-Reactive Protein Total Protein Albumin Random Vancomycin 10.0 L 11/05/23 08:46 WBC RBC Hgb Hct MCV MCH MCHC RDW Plt Count MPV Immature Gran % (Auto) Neut % (Auto) Lymph % (Auto) Gove % (Auto) Eos % (Auto) Baso % (Auto) Lymph # (Auto) Gove # (Auto) Eos # (Auto) Baso # (Auto) Abs Immat Gran (auto) Absolute Neuts (auto) Absolute Nucleated RBC Nucleated RBC % (auto) ESR Sodium Potassium Chloride Carbon Dioxide Anion Gap BUN Creatinine Estim Creat Clear Calc Estimated GFR POC Glucose 183 H Random Glucose Estimat Average Glucose Hemoglobin A1c % Lactic Acid Calcium Total Bilirubin Direct Bilirubin AST ALT Alkaline Phosphatase C-Reactive Protein Total Protein Albumin Random Vancomycin Airway Mallampati Class: III TM Dist: >3cm Neck ROM: Full Heart: RRR Lungs: CTA Assessment and Plan Assessment Anesthesia Assessment: Anesthesia Plan Discussed Final Anesthetic Review Family History of Problems with Anesthesia: No History of Problems with Anesthesia: No NPO: Yes ASA Class: III and Emergency Final Preanesthetic Review: Meds/Allgs Chart Reviewed, Consent Obtained/Reviewed and Anes Risks/Benef Reviewed Patient Risk: Intermediate Procedure Risk: Low Anesthetic Plan Anesthetic Plan: MAC: Disposition: Standard PACU
--- NOTE | 2023-11-05 10:20 | P.OP_ITS ---
Operative Note Operative Note Date of Service: 11/05/23 Narrative: Preoperative diagnosis: Right foot diabetic foot ulcer, great toe Postoperative diagnosis:same Procedure: Debridement of right foot diabetic foot ulcer great toe. Surgeon: Aravind Adame MD Teacher Assistant: Caterina Camp PA-C Anesthesia: MAC plus local block Indications for procedure:68-year-old male patient with history of diabetes mellitus in a long history of diabetic ulcer involving the right great toe now presenting with a large ulcer involving the medial surface and ventral surface of the right great toe at the MP joint. Ulcer measures 4.5 cm by 3 cm and extends into the subcutaneous tissue down to the outer surface of bone. Operative findings: 4.5 x 3 cm ulcer which was debrided of skin and subcutaneous tissue. Specimen: Right foot great toe ulcer Estimated blood loss: less than 5 mL Complications: none Procedure details: patient was brought to the OR placed in a supine position. After administering light sedation the patient's right foot was prepped with Betadine and draped in a sterile fashion. A digital block was then applied using combination of 0.5% Sensorcaine plain as well as lidocaine 1% plain. A scalpel was then used to debride the ulcer down to help the, viable tissue. This was approximately 4.5 x 3 cm. Curette was then used to debride necrotic tissue at the base of the wound. Bleeding tissue was noted at the base of the wound. An ulcer located at the dorsum of the foot was opened further with a scalpel and a communication between the 2 ulcers unroofed. This was an area of proximally 2 cm in diameter. Wounds were then irrigated with saline solution a nd suctioned dry. iodoform packing was then placed between the 2 ulcers. The large ulcer was then packed with Betadine soaked gauze followed by fluff gauze and Kerlix. The patient tolerated the procedure well. Sponge, instrument, and needle counts reported as correct. The patient was transferred to PACU in stable condition.
[2023-11-05] MEDS: atenoloL 50 MG TABLET PO (11:25)
[2023-11-05] MEDS: Atorvastatin Calcium 40 MG TABLET PO (11:26)
[2023-11-05] MEDS: amLODIPine Besylate 5 MG TABLET PO (11:26)
[2023-11-05] MEDS: Omeprazole 40 MG CAPSULE.DR PO ×2 (11:26→21:32)
[2023-11-05] MEDS: Sennosides 8.6 MG TABLET 17.2 MG PO (11:26)
[2023-11-05] MEDS: Aspirin Enteric Coated 81 MG TABLET.DR PO (11:26)
[2023-11-05] MEDS: Pyridoxine HCl (Vitamin B6) 50 MG TABLET PO (11:27)
[2023-11-05] MEDS: Enoxaparin Sodium 40 MG/0.4 ML SYRINGE SUBCUT (11:27)
[2023-11-05] MEDS: FLUoxetine HCl 20 MG CAPSULE 60 MG PO (11:27)
[2023-11-05 11:28] LABS: Glucose, Whole Blood 207 mg/dL (60-115)
[2023-11-05] MEDS: Morphine Sulfate 4 MG/ML CARTRIDGE IVPUSH ×3 (11:54→23:08)
[2023-11-05] MEDS: Insulin Lispro 100 UNIT/ML 3 ML VIAL SUBCUT ×2 (11:54→21:32)
[2023-11-05] MEDS: polyethylene glycoL 3350 17 GM POWD.PACK PO (12:16)
--- NOTE | 2023-11-05 14:01 | MHC.CM.PN ---
PER ID NOTE PATIENT MAY REQUIRE 6 WKS IV ABX ON DC. CM MET WITH PATIENT TO DISCUSS. PT FEELS HE WOULD BE ABLE TO INDEPENDENTLY MANAGE IV ABX, BUT DOES HAVE A SISTER NEARBY THAT CAN ASSIST PRN. PREFERS [facility] AND [facility]. REFERRALS IN PLACE. CM WILL CONTINUE TO FOLLOW.
--- NOTE | 2023-11-05 14:24 | P.PNIM_ITS ---
Subjective Subjective Date of Service: 11/05/23 Interval History: Drill went debridement of right foot diabetic wound/abscess, postprocedure denies pain, no nausea, no vomiting, no fever, no chills noted to have stable blood sugars, no other acute events overnight. Review of Systems All other system reviewed and negative Physical Exam 2 Vital Signs: Vital Signs: Last Vital Signs Temp 97.2 F 11/05/23 10:45 Pulse 50 11/05/23 11:25 Resp 16 11/05/23 10:45 BP 141/69 H 11/05/23 11:26 Pulse Ox 97 11/05/23 10:45 O2 Del Method Room Air 11/05/23 10:45 O2 Flow Rate 6 11/05/23 10:20 BMI result Body Mass Index 32.5 Const: Other: Constitutional : Awake, interactive, not in distress Neck : No JVD, Supple Cardiovascular : RRR, Respiratory : Clear to auscultation, no crackles, wheezes or rhonchi Gastrointestinal: soft, Normal bowel sounds, Non tender Skin : Warm, Dry, Right foot dressing in place no drainage noted /positive swelling right lower leg Neurological : Alert & oriented x3, No focal deficit Psych appropriate affect Objective Data Active Medications Acetaminophen (Acetaminophen 325 Mg Tablet) 650 mg PO Q6H PRN PRN Reason: Pain, Mild (Pain Scale 1-3) Last Admin: 11/03/23 02:26 Dose: 650 mg Documented By: RICCARDO Albuterol Sulfate (Albuterol Sulfate 90 Mcg 8 Gm Inhaler) 2 puff INHALE RQ6H PRN PRN Reason: shortness of breath or wheezing Amlodipine Besylate (Amlodipine Besylate 5 Mg Tablet) 5 mg PO DAILY [facility]; Protocol Last Admin: 11/05/23 11:26 Dose: 5 mg Documented By: LINDA Aspirin (Aspirin Enteric Coated 81 Mg Tablet.) 81 mg PO DAILY [facility] Last Admin: 11/05/23 11:26 Dose: 81 mg Documented By: LINDA Atenolol (Atenolol 50 Mg Tablet) 50 mg PO DAILY [facility]; Protocol Last Admin: 11/05/23 11:25 Dose: 50 mg Documented By: LINDA Atorvastatin Calcium (Atorvastatin Calcium 40 Mg Tablet) 40 mg PO DAILY [facility] Last Admin: 11/05/23 11:26 Dose: 40 mg Documented By: LINDA Enoxaparin Sodium (Enoxaparin Sodium 40 Mg/0.4 Ml Syringe) 40 mg SUBCUT Q24H [facility] Last Admin: 11/05/23 11:27 Dose: 40 mg Documented By: LINDA Fluoxetine HCl (Fluoxetine Hcl 20 Mg Capsule) 60 mg PO DAILY [facility] Last Admin: 11/05/23 11:27 Dose: 60 mg Documented By: LINDA Fluticasone Propionate (Fluticasone Propionate Nasal 16 Gm [place]) 1 spray NOSTRIL-B DAILY [facility] Last Admin: 11/05/23 11:28 Dose: Not Given Documented By: LINDA Non-Admin Reason: Off Unit: Surgery Glucose (Glucose Gel 15 Gm Gel..Gram.) 15 gm PO Q15M PRN; Protocol PRN Reason: per Hypoglycemia Standing Ord. Dextrose (D10) 250 mls @ 750 mls/hr IV Q15M PRN; Protocol PRN Reason: per Hypoglycemia Standing Ord. Piperacillin Sod/Tazobactam (Sod 4.5 gm/ Sodium Chloride) 100 mls @ 200 mls/hr IV Q6H [facility] Last Infusion: 11/05/23 12:02 Dose: Infused Documented By: LINDA Vancomycin HCl 1,500 mg/ (Sodium Chloride) 500 mls @ 333.333 mls/hr IV Q24H [facility] Last Infusion: 11/05/23 11:33 Dose: Infused Documented By: LINDA Insulin Glargine (Insulin Glargine,Hum.Rec.Anlog 100 Unit/Ml 10 Ml Vial) 35 unit SUBCUT DAILY [facility] Last Admin: 11/05/23 08:17 Dose: 35 unit Documented By: LINDA Insulin Human Lispro (Insulin Lispro 100 Unit/Ml 3 Ml Vial) 0 unit SUBCUT QIDACHS [facility], [facility]; Protocol Last Admin: 11/05/23 11:54 Dose: 4 unit Documented By: LINDA Melatonin (Melatonin 3 Mg Tablet) 6 mg PO BEDTIME PRN PRN Reason: Insomnia Mirtazapine (Mirtazapine 15 Mg Tablet) 15 mg PO BEDTIME [facility] Last Admin: 11/04/23 22:02 Dose: 15 mg Documented By: CHANTELLE Morphine Sulfate (Morphine Sulfate 4 Mg/Ml Cartridge) 4 mg IVPUSH Q4H PRN; Protocol PRN Reason: Pain, Severe (Pain Scale 7-10) Last Admin: 11/05/23 11:54 Dose: 4 mg Documented By: LINDA Omeprazole (Omeprazole 40 Mg Capsule.Dr) 40 mg PO BID [facility] Last Admin: 11/05/23 11:26 Dose: 40 mg Documented By: LINDA Ondansetron HCl (Ondansetron Hcl 4 Mg/2 Ml Vial) 4 mg IVPUSH Q8H PRN PRN Reason: Nausea and Vomiting Oxycodone HCl (Oxycodone Hcl Immed Release 5 Mg Tablet) 5 mg PO Q4H PRN PRN Reason: Pain, Moderate(Pain Scale 4-6) Pharmacy Consult (Consult Rx Vancomycin Dosing) 1 each MISCELLANE DAILY PRN PRN Reason: Consult order Polyethylene Glycol (Polyethylene Glycol 3350 17 Gm Powd.Pack) 17 gm PO DAILY [facility] Last Admin: 11/05/23 12:16 Dose: 17 gm Documented By: LINDA Pyridoxine HCl (Pyridoxine Hcl (Vitamin B6) 50 Mg Tablet) 50 mg PO DAILY [facility] Last Admin: 11/05/23 11:27 Dose: 50 mg Documented By: LINDA Senna (Sennosides 8.6 Mg Tablet) 17.2 mg PO DAILY [facility] Last Admin: 11/05/23 11:26 Dose: 17.2 mg Documented By: LINDA Sodium Chloride (0.9 % Sodium Chloride Flush 3 Ml Syringe) [facility] Last Admin: 11/05/23 08:06 Dose: 3 ml Documented By: LINDA Labs 11/05/23 06:03 11/05/23 06:03 Labs: Laboratory Results - last 24 hr 11/04/23 11/04/23 11/05/23 16:16 19:53 06:03 MCV 91.4 MCH 29.5 MCHC 32.3 RDW 13.2 Plt Count 302 MPV 11.0 Absolute Nucleated RBC 0.000 Nucleated RBC % (auto) 0.0 Anion Gap 14 Estim Creat Clear Calc 55.6 Estimated GFR POC Glucose 219 H 224 H Random Glucose Calcium Random Vancomycin 11/05/23 11/05/23 11/05/23 06:03 06:03 07:29 MCV MCH MCHC RDW Plt Count MPV Absolute Nucleated RBC Nucleated RBC % (auto) Anion Gap Estim Creat Clear Calc 57.8 Estimated GFR 42 44 POC Glucose 185 H Random Glucose 209 H Calcium 8.8 Random Vancomycin 10.0 L 11/05/23 11/05/23 08:46 11:18 MCV MCH MCHC RDW Plt Count MPV Absolute Nucleated RBC Nucleated RBC % (auto) Anion Gap Estim Creat Clear Calc Estimated GFR POC Glucose 183 H 207 H Random Glucose Calcium Random Vancomycin Microbiology Microbiology Results: Microbiology 11/03/23 02:03 Gram Stain - Final Foot Right Routine Culture - Final 11/03/23 00:07 Blood Culture - Preliminary Blood - Venous No growth after 48 hours. 11/02/23 19:56 Blood Culture - Preliminary Blood - Venous No growth after 48 hours. 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 # Sepsis due to right foot diabetic infection with abscess and cellulitis Sepsis resolved, WBC normalized, no fevers MRI showing abscess but no clear OM blood culture preliminary report negative times 48 hours On IV Vancomycin and Zosyn started on 11/02 Status post debridement of right foot ulcer by Dr. Adame this a.m. Seen by ID she recommend 6 weeks of IV vancomycin if blood cultures negative with weekly trough send creatinine /will order PICC line if blood cultures remain negative tomorrow. follow Vanco trough and creatinine daily # Insulin-dependent diabetes mellitus with hyperglycemia , was NPO dose of Lantus reduced to 35 units from baseline dose of 70 units, continue insulin sliding scale Will place on Lantus 60 units at a.m. # Mixed hyperlipidemia: Continue Lipitor # Hypertension: Stable blood pressure on atenolol 50 mg, nor rest 5 mg, follow BP # Mood disorder: Continue home mood stabilizers # Chronic kidney disease stage 3: Creatinine at baseline. Continue to monitor and avoid nephrotoxins # Gastroesophageal reflux disease: On PPI DVT prophylaxis: Lovenox Full Code Needs inpatient stay overnight in hospital for IV antibiotics pending final cultures , which is not possible in a lesser acute setting. Quality Stroke Does the patient have a stroke diagnosis?: No VTE Prior VTE?: No VTE Risk Level:: Medical - moderate - high VTE Device Contraindication: Treatment Not Indicated VTE Drug Contraindication: N/A - Med Ordered
[2023-11-05 16:31] LABS: Glucose, Whole Blood 147 mg/dL (60-115)
[2023-11-05 20:17] LABS: Glucose, Whole Blood 165 mg/dL (60-115)
[2023-11-05] MEDS: Mirtazapine 15 MG TABLET PO (21:32)
[2023-11-06] VITALS (7 sets, daily range): BP systolic 120–162; BP diastolic 58–80; PULSE 50–54; RESP 16–18; TEMP 36.1–36.7; O2SAT 94–100
[2023-11-06] MEDS: LORazepam 1 MG TABLET PO (00:45)
[2023-11-06] MEDS: Piperacillin Sodium/Tazobactam 4.5 GM in 0.9 % Sodium Chloride 100 ML IV (05:59)
[2023-11-06] MEDS: oxyCODONE HCl Immed Release 5 MG TABLET PO ×2 (06:48→11:38)
[2023-11-06 06:58] LABS: Vancomycin Random 12.5 mcg/mL (15-20)
[2023-11-06 07:00] LABS: Creatinine Clr Calc Pharmacy 58.9; Estimated Glomerular Filt Rate 45
[2023-11-06 07:22] LABS: Glucose, Whole Blood 239 mg/dL (60-115)
[2023-11-06] MEDS: Insulin Lispro 100 UNIT/ML 3 ML VIAL SUBCUT ×3 (08:10→21:48)
[2023-11-06] MEDS: Enoxaparin Sodium 40 MG/0.4 ML SYRINGE SUBCUT (08:10)
[2023-11-06] MEDS: Insulin Glargine,Hum.rec.anlog 100 UNIT/ML 10 ML VIAL 50 UNIT SUBCUT (08:10)
[2023-11-06] MEDS: Aspirin Enteric Coated 81 MG TABLET.DR PO (08:11)
[2023-11-06] MEDS: 0.9 % Sodium Chloride Flush 3 ML SYRINGE IVFLUSH ×3 (08:11→21:49)
[2023-11-06] MEDS: atenoloL 50 MG TABLET PO (08:11)
[2023-11-06] MEDS: FLUoxetine HCl 20 MG CAPSULE 60 MG PO (08:11)
[2023-11-06] MEDS: Sennosides 8.6 MG TABLET 17.2 MG PO (08:12)
[2023-11-06] MEDS: Omeprazole 40 MG CAPSULE.DR PO ×2 (08:12→21:48)
[2023-11-06] MEDS: amLODIPine Besylate 5 MG TABLET PO (08:12)
[2023-11-06] MEDS: polyethylene glycoL 3350 17 GM POWD.PACK PO (08:12)
[2023-11-06] MEDS: Pyridoxine HCl (Vitamin B6) 50 MG TABLET PO (08:12)
[2023-11-06] MEDS: Atorvastatin Calcium 40 MG TABLET PO (08:12)
[2023-11-06] MEDS: vancomycin HCL 750 MG in 0.9 % Sodium Chloride 250 ML 265 MG IV ×2 (08:13→19:38)
--- NOTE | 2023-11-06 08:16 | P.PNGS_ITS ---
Subjective Subjective Date of Service: 11/06/23 Interval history: POD #1 s/p debridement of right foot ulcer. He reports some pain in the right foot. Denies any new symptoms. Physical Exam 2 Vital Signs: Vital Signs: Last Vital Signs Temp 96.9 F 11/06/23 07:51 Pulse 52 11/06/23 07:51 Resp 18 11/06/23 07:51 BP 145/61 H 11/06/23 07:51 Pulse Ox 94 11/06/23 07:51 O2 Del Method Nasal Cannula 11/06/23 07:51 O2 Flow Rate 6 11/05/23 10:20 BMI result Body Mass Index 32.5 Const: General: no acute distress Nutritional Appearance: well nourished Orientation/consciousness: patient oriented x3 Resp: Effort & Inspection: normal respiratory effort Neuro: General: patient oriented x3 Extrem: Other: Dressings changed to right foot. Open wound is clean with no new necrosis or erythema. The erythema located on the anterior surface of the right foot is much improved. Clean dressings applied. Objective Data Active Medications Acetaminophen (Acetaminophen 325 Mg Tablet) 650 mg PO Q6H PRN PRN Reason: Pain, Mild (Pain Scale 1-3) Last Admin: 11/03/23 02:26 Dose: 650 mg Documented By: RICCARDO Albuterol Sulfate (Albuterol Sulfate 90 Mcg 8 Gm Inhaler) 2 puff INHALE RQ6H PRN PRN Reason: shortness of breath or wheezing Amlodipine Besylate (Amlodipine Besylate 5 Mg Tablet) 5 mg PO DAILY [facility]; Protocol Last Admin: 11/06/23 08:12 Dose: 5 mg Documented By: CHANDU Aspirin (Aspirin Enteric Coated 81 Mg Tablet.) 81 mg PO DAILY [facility] Last Admin: 11/06/23 08:11 Dose: 81 mg Documented By: CHANDU Atenolol (Atenolol 50 Mg Tablet) 50 mg PO DAILY [facility]; Protocol Last Admin: 11/06/23 08:11 Dose: 50 mg Documented By: CHANDU Atorvastatin Calcium (Atorvastatin Calcium 40 Mg Tablet) 40 mg PO DAILY [facility] Last Admin: 11/06/23 08:12 Dose: 40 mg Documented By: CHANDU Enoxaparin Sodium (Enoxaparin Sodium 40 Mg/0.4 Ml Syringe) 40 mg SUBCUT Q24H [facility] Last Admin: 11/06/23 08:10 Dose: 40 mg Documented By: CHANDU Fluoxetine HCl (Fluoxetine Hcl 20 Mg Capsule) 60 mg PO DAILY [facility] Last Admin: 11/06/23 08:11 Dose: 60 mg Documented By: CHANDU Fluticasone Propionate (Fluticasone Propionate Nasal 16 Gm [place]) 1 spray NOSTRIL-B DAILY [facility] Last Admin: 11/05/23 11:28 Dose: Not Given Documented By: LINDA Non-Admin Reason: Off Unit: Surgery Glucose (Glucose Gel 15 Gm Gel..Gram.) 15 gm PO Q15M PRN; Protocol PRN Reason: per Hypoglycemia Standing Ord. Dextrose (D10) 250 mls @ 750 mls/hr IV Q15M PRN; Protocol PRN Reason: per Hypoglycemia Standing Ord. Piperacillin Sod/Tazobactam (Sod 4.5 gm/ Sodium Chloride) 100 mls @ 200 mls/hr IV Q6H [facility] Last Infusion: 11/06/23 06:37 Dose: Infused Documented By: CHANTELLE Vancomycin HCl 750 mg/ Sodium (Chloride) 265 mls @ 265 mls/hr IV Q12H [facility] Last Admin: 11/06/23 08:13 Dose: 265 mls/hr Documented By: CHANDU Insulin Glargine (Insulin Glargine,Hum.Rec.Anlog 100 Unit/Ml 10 Ml Vial) 50 unit SUBCUT DAILY [facility] Last Admin: 11/06/23 08:10 Dose: 50 unit Documented By: CHANDU Insulin Human Lispro (Insulin Lispro 100 Unit/Ml 3 Ml Vial) 0 unit SUBCUT QIDACHS [facility]; Protocol Last Admin: 11/06/23 08:10 Dose: 4 unit Documented By: CHANDU Melatonin (Melatonin 3 Mg Tablet) 6 mg PO BEDTIME PRN PRN Reason: Insomnia Mirtazapine (Mirtazapine 15 Mg Tablet) 15 mg PO BEDTIME [facility] Last Admin: 11/05/23 21:32 Dose: 15 mg Documented By: CHANTELLE Morphine Sulfate (Morphine Sulfate 4 Mg/Ml Cartridge) 4 mg IVPUSH Q4H PRN; Protocol PRN Reason: Pain, Severe (Pain Scale 7-10) Last Admin: 11/05/23 23:08 Dose: 4 mg Documented By: HO.LYSZ Omeprazole (Omeprazole 40 Mg Capsule.) 40 mg PO BID [facility] Last Admin: 11/06/23 08:12 Dose: 40 mg Documented By: CHANDU Ondansetron HCl (Ondansetron Hcl 4 Mg/2 Ml Vial) 4 mg IVPUSH Q8H PRN PRN Reason: Nausea and Vomiting Oxycodone HCl (Oxycodone Hcl Immed Release 5 Mg Tablet) 5 mg PO Q4H PRN PRN Reason: Pain, Moderate(Pain Scale 4-6) Last Admin: 11/06/23 06:48 Dose: 5 mg Documented By: CHANDU Pharmacy Consult (Consult Rx Vancomycin Dosing) 1 each MISCELLANE DAILY PRN PRN Reason: Consult order Polyethylene Glycol (Polyethylene Glycol 3350 17 Gm Powd.Pack) 17 gm PO DAILY [facility] Last Admin: 11/06/23 08:12 Dose: 17 gm Documented By: CHANDU Pyridoxine HCl (Pyridoxine Hcl (Vitamin B6) 50 Mg Tablet) 50 mg PO DAILY [facility] Last Admin: 11/06/23 08:12 Dose: 50 mg Documented By: CHANDU Senna (Sennosides 8.6 Mg Tablet) 17.2 mg PO DAILY [facility] Last Admin: 11/06/23 08:12 Dose: 17.2 mg Documented By: CHANDU Sodium Chloride (0.9 % Sodium Chloride Flush 3 Ml Syringe) 3 ml IVFLUSH QSHIFT [facility] Last Admin: 11/06/23 08:11 Dose: 3 ml Documented By: CHANDU Labs 11/05/23 06:03 11/06/23 06:22 Labs: Laboratory Results - last 24 hr 11/05/23 11/05/23 11/05/23 08:46 11:18 16:19 Estim Creat Clear Calc Estimated GFR POC Glucose 183 H 207 H 147 H Random Vancomycin 11/05/23 11/06/23 11/06/23 20:11 06:22 07:12 Estim Creat Clear Calc 58.9 Estimated GFR 45 POC Glucose 165 H 239 H Random Vancomycin 12.5 L Microbiology Microbiology Results: Microbiology 11/03/23 02:03 Gram Stain - Final Foot Right Routine Culture - Final Procedures Date of Service Date of Service: 11/06/23 Progress Note: A&P Assessment and plan (1) Abscess of right foot: Status: Acute Plan Pod 1 following debridement of right foot ulcer with necrotic skin and abscess. Exam today reveals improvement in the cellulitis in the right foot. Continue local wound care with wet-to-dry dressings to the right foot twice daily. Will eventually switch to dura fiber Ag once increase granulation noted. Further management per hospitalist team. Time Spent With Patient Time: Total time managing care of this patient today ____ minutes. Quality Stroke Does the patient have a stroke diagnosis?: No VTE Prior VTE?: No VTE Risk Level:: Medical - moderate - high VTE Device Contraindication: Treatment Not Indicated VTE Drug Contraindication: N/A - Med Ordered
[2023-11-06] MEDS: Fluticasone Propionate Nasal 16 GM SPRAY 1 SPRAY NOSTRIL-B (08:18)
--- NOTE | 2023-11-06 10:34 | HO.POSTANES ---
Post Anesthesia Evaluation Post Anesthesia Evaluation Date of Service: 11/05/23 Vital Signs: Vital Signs Temp Pulse Resp BP Pulse Ox O2 Del Method 11/06/23 07:51 96.9 F 52 18 145/61 H 94 Nasal Cannula 11/06/23 06:36 120/58 L 11/06/23 04:03 97.5 F 54 18 160/67 H 100 Room Air Anesthesia: Monitored Mental Status: Awake Pain Control: Satisfactory Nausea/Vomiting: None Hydration: Adequate Anesthesia-Related Issues: No Anes. Related Issues
[2023-11-06 11:22] LABS: Glucose, Whole Blood 240 mg/dL (60-115)
--- NOTE | 2023-11-06 13:01 | MHC.CM.PN ---
CM MET WITH PT TO DISCUSS DC PLANS PT MADE AWARE HIS INSURANCE HAS A COPAY OF $100/WEEK FOR IV MEDS/SUPPLIES AT HOME PER DISCUSSION, PT WOULD LIKE REFERRALS MADE TO STR BETWEEN HERE AND HIS DAUGHTERS HOME IN [facility] PT WILL ALSO SPEAK WITH [facility] RN ABOUT POTENTIAL PAYMENT PLANS IF HE DOES DC HOME PT ALSO REPORTS IF HE DOES NOT GO TO A STR, HE MAY WANT TO GO STAY AT HIS DAUGHTERS HOME IN [place] UPON DC HE IS AWARE CM WOULD ATTEMPT TO ARRANGE [facility] FOR THAT AREA FOR NURSING AND PT
--- NOTE | 2023-11-06 14:22 | P.PNIM_ITS ---
Subjective Subjective Date of Service: 11/06/23 Interval History: Being followed for sepsis due to right foot diabetic infection with abscess and cellulitis, no osteomyelitis. Offers no acute complaints, good pain control at site of right foot I and D, denies fever, no chills, tolerating diet ,no nausea no vomiting, no abdominal pain. Review of Systems All other system reviewed and negative. Physical Exam 2 Vital Signs: Vital Signs: Last Vital Signs Temp 97.4 F 11/06/23 11:48 Pulse 53 11/06/23 13:05 Resp 16 11/06/23 11:48 BP 159/73 H 11/06/23 13:05 Pulse Ox 98 11/06/23 13:05 O2 Del Method Room Air 11/06/23 11:48 O2 Flow Rate 6 11/05/23 10:20 BMI result Body Mass Index 32.5 Const: Other: Constitutional : Awake, interactive, not in distress Neck : No JVD, Supple Cardiovascular : RRR, Respiratory : Clear to auscultation, no crackles, wheezes or rhonchi Gastrointestinal: soft, Normal bowel sounds, Non tender Skin : Warm, Dry, Right foot dressing in place no drainage noted /positive swelling right lower leg (as per general surgery open wound clean with no necrosis or erythema, clean dressing applied by General surgery) Neurological : Alert & oriented x3, No focal deficit Psych appropriate affect Objective Data Active Medications Acetaminophen (Acetaminophen 325 Mg Tablet) 650 mg PO Q6H PRN PRN Reason: Pain, Mild (Pain Scale 1-3) Last Admin: 11/03/23 02:26 Dose: 650 mg Documented By: RICCARDO Albuterol Sulfate (Albuterol Sulfate 90 Mcg 8 Gm Inhaler) 2 puff INHALE RQ6H PRN PRN Reason: shortness of breath or wheezing Amlodipine Besylate (Amlodipine Besylate 5 Mg Tablet) 5 mg PO DAILY [facility]; Protocol Last Admin: 11/06/23 08:12 Dose: 5 mg Documented By: CHANDU Aspirin (Aspirin Enteric Coated 81 Mg Tablet.) 81 mg PO DAILY [facility] Last Admin: 11/06/23 08:11 Dose: 81 mg Documented By: CHANDU Atenolol (Atenolol 50 Mg Tablet) 50 mg PO DAILY [facility]; Protocol Last Admin: 11/06/23 08:11 Dose: 50 mg Documented By: CHANDU Atorvastatin Calcium (Atorvastatin Calcium 40 Mg Tablet) 40 mg PO DAILY [facility] Last Admin: 11/06/23 08:12 Dose: 40 mg Documented By: CHANDU Enoxaparin Sodium (Enoxaparin Sodium 40 Mg/0.4 Ml Syringe) 40 mg SUBCUT Q24H [facility] Last Admin: 11/06/23 08:10 Dose: 40 mg Documented By: CHANDU Fluoxetine HCl (Fluoxetine Hcl 20 Mg Capsule) 60 mg PO DAILY [facility] Last Admin: 11/06/23 08:11 Dose: 60 mg Documented By: CHANDU Fluticasone Propionate (Fluticasone Propionate Nasal 16 Gm [place]) 1 spray NOSTRIL-B DAILY [facility] Last Admin: 11/06/23 08:18 Dose: 1 spray Documented By: CHANDU Glucose (Glucose Gel 15 Gm Gel..Gram.) 15 gm PO Q15M PRN; Protocol PRN Reason: per Hypoglycemia Standing Ord. Dextrose (D10) 250 mls @ 750 mls/hr IV Q15M PRN; Protocol PRN Reason: per Hypoglycemia Standing Ord. Vancomycin HCl 750 mg/ Sodium (Chloride) 265 mls @ 265 mls/hr IV Q12H [facility] Last Infusion: 11/06/23 09:43 Dose: Infused Documented By: CHANDU Insulin Glargine (Insulin Glargine,Hum.Rec.Anlog 100 Unit/Ml 10 Ml Vial) 50 unit SUBCUT DAILY [facility] Last Admin: 11/06/23 08:10 Dose: 50 unit Documented By: CHANDU Insulin Human Lispro (Insulin Lispro 100 Unit/Ml 3 Ml Vial) 0 unit SUBCUT QIDACHS [facility]; Protocol Last Admin: 11/06/23 11:25 Dose: 4 unit Documented By: RADHA-EDGAR Melatonin (Melatonin 3 Mg Tablet) 6 mg PO BEDTIME PRN PRN Reason: Insomnia Mirtazapine (Mirtazapine 15 Mg Tablet) 15 mg PO BEDTIME [facility] Last Admin: 11/05/23 21:32 Dose: 15 mg Documented By: CHANTELLE Morphine Sulfate (Morphine Sulfate 4 Mg/Ml Cartridge) 4 mg IVPUSH Q4H PRN; Protocol PRN Reason: Pain, Severe (Pain Scale 7-10) Last Admin: 11/05/23 23:08 Dose: 4 mg Documented By: CHANTELLE Omeprazole (Omeprazole 40 Mg Capsule.) 40 mg PO BID [facility] Last Admin: 11/06/23 08:12 Dose: 40 mg Documented By: CHANDU Ondansetron HCl (Ondansetron Hcl 4 Mg/2 Ml Vial) 4 mg IVPUSH Q8H PRN PRN Reason: Nausea and Vomiting Oxycodone HCl (Oxycodone Hcl Immed Release 5 Mg Tablet) 5 mg PO Q4H PRN PRN Reason: Pain, Moderate(Pain Scale 4-6) Last Admin: 11/06/23 11:38 Dose: 5 mg Documented By: TOYA Pharmacy Consult (Consult Rx Vancomycin Dosing) 1 each MISCELLANE DAILY PRN PRN Reason: Consult order Polyethylene Glycol (Polyethylene Glycol 3350 17 Gm Powd.Pack) 17 gm PO DAILY [facility] Last Admin: 11/06/23 08:12 Dose: 17 gm Documented By: CHANDU Pyridoxine HCl (Pyridoxine Hcl (Vitamin B6) 50 Mg Tablet) 50 mg PO DAILY [facility] Last Admin: 11/06/23 08:12 Dose: 50 mg Documented By: CHANDU Senna (Sennosides 8.6 Mg Tablet) 17.2 mg PO DAILY [facility] Last Admin: 11/06/23 08:12 Dose: 17.2 mg Documented By: CHANDU Sodium Chloride (0.9 % Sodium Chloride Flush 3 Ml Syringe) 3 ml IVFLUSH QSHIFT [facility] Last Admin: 11/06/23 08:11 Dose: 3 ml Documented By: CHANDU Labs 11/05/23 06:03 11/06/23 06:22 Labs: Laboratory Results - last 24 hr 11/05/23 11/05/23 11/06/23 16:19 20:11 06:22 Estim Creat Clear Calc 58.9 Estimated GFR 45 POC Glucose 147 H 165 H Random Vancomycin 12.5 L 11/06/23 11/06/23 07:12 11:16 Estim Creat Clear Calc Estimated GFR POC Glucose 239 H 240 H Random Vancomycin Assessment and Plan (1) Sepsis: Status: Acute (2) Cellulitis: Status: Acute (3) Diabetes mellitus with hyperglycemia, with long-term current use of insulin: Status: Acute Plan This is a 68-year-old male with pertinent history of 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 # Sepsis due to right foot diabetic infection with abscess and cellulitis Sepsis resolved, WBC normalized, no fevers MRI showed abscess but no clear OM blood culture negative times 48 hours On IV Vancomycin and Zosyn started on 11/02, will DC IV Zosyn Status post debridement of right foot ulcer by Dr. Adame on 11/04 he recommend local wound care with wet-to-dry dressings twice daily, he will eventually switch to do rash fiber AG once increased granulation noted. ID recommend 6 weeks of IV vancomycin PICC line ordered Order PT for discharge planning/patient agreeable to short-term rehab if recommended by PT otherwise lead case manager will arrange for home infusion. follow Vanco trough and creatinine daily # Insulin-dependent diabetes mellitus with hyperglycemia , hemoglobin A1c 8.4, Lantus baseline dose of 70 units, continue insulin sliding scale on Lantus 60 units at a.m. # Mixed hyperlipidemia: Continue Lipitor # Hypertension: Stable blood pressure on atenolol 50 mg, Norvasc 5 mg stable BP # Mood disorder: Continue home mood stabilizers # Chronic kidney disease stage 3: Creatinine at baseline. Continue to monitor and avoid nephrotoxins # Gastroesophageal reflux disease: On PPI DVT prophylaxis: Lovenox Full Code Needs inpatient stay overnight in hospital for IV antibiotics pending final cultures , which is not possible in a lesser acute setting. Quality Stroke Does the patient have a stroke diagnosis?: No VTE Prior VTE?: No VTE Risk Level:: Medical - moderate - high VTE Device Contraindication: Treatment Not Indicated VTE Drug Contraindication: N/A - Med Ordered
--- NOTE | 2023-11-06 15:43 | P.PICC_ITS ---
PICC Line Insertion NPICC Diagnosis: Right foot wound Indication: senior care antibiotics Pertinent Labs: reviewed Technique: Following informed consent including risks, benefits and alternatives and using sterile technique including cap and mask, sterile gown, glove and drape, the right arm was prepped and draped in the usual sterile fashion of full barrier technique with CHG. Following completion of Warren Protocol the skin and soft tissues were anesthetized with 1% Lidocaine plain. Using ultrasound guidance, right brachial vein access was obtained on first attempt. Over an 0.018 wire through peel-away sheath, a 4FR single lumen PASV PICC line was positioned. Catheter length is 42 CM internal length, 0 CM external length, for a total trimmed length of 42 CM. The procedure was performed in S272. Tip verification was performed by Melissa Ibarra with Patience 3CG. Tip located in SVC. Ultrasound was used to document vein patency and for needle entry. A formal ultrasound picture and cardiac rhythm strip was recorded. Vascular Remote Sensing Research Scientist has released the line for use and it is currently dressed with a StatLock, Tegaderm, and CHG disc. Verification has been performed for blood return and line patency. Arm Circumference: 34.5 CM Equipment: KXEN PowerPICC SOLO Catheter Type: 4FR Single Lumen PASV PICC Lot #: [id number]
[2023-11-06 16:31] LABS: Glucose, Whole Blood 130 mg/dL (60-115)
[2023-11-06] MEDS: Morphine Sulfate 4 MG/ML CARTRIDGE IVPUSH (19:37)
[2023-11-06] MEDS: 0.9 % Sodium Chloride Flush 10 ML SYRINGE 5 ML IVFLUSH (19:37)
[2023-11-06 20:40] LABS: Glucose, Whole Blood 244 mg/dL (60-115)
[2023-11-06] MEDS: Mirtazapine 15 MG TABLET PO (21:48)
[2023-11-07] VITALS (7 sets, daily range): BP systolic 150–174; BP diastolic 64–79; PULSE 48–65; RESP 16–18; TEMP 36.1–36.3; O2SAT 92–98
[2023-11-07 07:32] LABS: Glucose, Whole Blood 131 mg/dL (60-115)
[2023-11-07 07:51] LABS: Vancomycin Random 14.3 mcg/mL (15-20)
[2023-11-07 07:51] LABS: Creatinine Clr Calc Pharmacy 67.6; Estimated Glomerular Filt Rate 52
[2023-11-07] MEDS: Insulin Glargine,Hum.rec.anlog 100 UNIT/ML 10 ML VIAL 50 UNIT SUBCUT (08:08)
[2023-11-07] MEDS: Enoxaparin Sodium 40 MG/0.4 ML SYRINGE SUBCUT (08:09)
[2023-11-07] MEDS: amLODIPine Besylate 5 MG TABLET PO (08:10)
[2023-11-07] MEDS: Atorvastatin Calcium 40 MG TABLET PO (08:10)
[2023-11-07] MEDS: Sennosides 8.6 MG TABLET 17.2 MG PO (08:10)
[2023-11-07] MEDS: Omeprazole 40 MG CAPSULE.DR PO ×2 (08:11→19:52)
[2023-11-07] MEDS: Pyridoxine HCl (Vitamin B6) 50 MG TABLET PO (08:11)
[2023-11-07] MEDS: Aspirin Enteric Coated 81 MG TABLET.DR PO (08:11)
[2023-11-07] MEDS: atenoloL 50 MG TABLET PO (08:11)
[2023-11-07] MEDS: FLUoxetine HCl 20 MG CAPSULE 60 MG PO (08:14)
[2023-11-07] MEDS: Morphine Sulfate 4 MG/ML CARTRIDGE IVPUSH ×3 (08:24→21:12)
[2023-11-07] MEDS: vancomycin HCL 1,000 MG in 0.9 % Sodium Chloride 250 ML 270 MG IV ×2 (08:26→19:52)
[2023-11-07] MEDS: 0.9 % Sodium Chloride Flush 3 ML SYRINGE IVFLUSH ×3 (08:28→21:13)
[2023-11-07] MEDS: 0.9 % Sodium Chloride Flush 10 ML SYRINGE 5 ML IVFLUSH ×2 (09:31→14:57)
[2023-11-07] MEDS: polyethylene glycoL 3350 17 GM POWD.PACK PO (09:32)
--- NOTE | 2023-11-07 10:02 | MHC.CM.PN ---
Addendum entered by Misty Barber 11/07/23 12:31: AFTER SEVERAL DISCUSSIONS WITH PT AND DAUGHTERS, PT HAS DECIDED TO GO TO [facility] REFERRALS ARE OUT, AWAITING BED OFFER PT UNDERSTANDS HE MAY NOT BE IN THE AREA DUE TO INSURANCE CONTRACTS Original Note: CM MET WITH PT TO DISCUSS DC PLANNING, PTS DAUGHTER PARTICIPATING VIA SPEAKER PHONE PT NOW UNSURE IF HE WANTS TO GO HOME, TO HIS DAUGHTERS HOME, OR TO A SNF CM REVIEWED ALL OF THE OPTIONS, POTENTIAL BARRIERS AND TIMELINE HE WILL DISCUSS THIS WITH HIS DAUGHTER FURTHER AND PROVIDE CM WITH A DECISION
[2023-11-07] MEDS: Fluticasone Propionate Nasal 16 GM SPRAY 1 SPRAY NOSTRIL-B (10:54)
[2023-11-07 11:28] LABS: Glucose, Whole Blood 233 mg/dL (60-115)
[2023-11-07] MEDS: Insulin Lispro 100 UNIT/ML 3 ML VIAL SUBCUT (11:59)
--- NOTE | 2023-11-07 13:11 | HO.PM.IMPN ---
Subjective Subjective Date of Service: 11/07/23 Interval History: no fever R foot pain controlled no N/V Review of Systems Review of Systems: Yes all other systems are reviewed and are negative Physical Exam Vital Signs: Vital Signs: Last Vital Signs Temp 97.3 F 11/07/23 11:36 Pulse 65 11/07/23 11:36 Resp 18 11/07/23 11:36 BP 170/65 H 11/07/23 11:36 Pulse Ox 96 11/07/23 11:36 O2 Del Method Room Air 11/07/23 11:36 O2 Flow Rate 6 11/05/23 10:20 BMI result Body Mass Index 32.5 Gen: in no acute distress HEENT: sclera anicteric, moist mucus membranes Neck: supple Lungs: clear to auscultation bilaterally Heart: regular rate and rhythm, no murmurs Abd: soft, non-tender, non-distended Ext: no edema, RUE with PICC, R foot with dry dressing Skin: warm/well-perfused Neuro: alert and oriented x3, no focal findings Psych: appropriate affect Objective Data Active Medications Acetaminophen (Acetaminophen 325 Mg Tablet) 650 mg PO Q6H PRN PRN Reason: Pain, Mild (Pain Scale 1-3) Last Admin: 11/03/23 02:26 Dose: 650 mg Documented By: RICCARDO Albuterol Sulfate (Albuterol Sulfate 90 Mcg 8 Gm Inhaler) 2 puff INHALE RQ6H PRN PRN Reason: shortness of breath or wheezing Amlodipine Besylate (Amlodipine Besylate 5 Mg Tablet) 5 mg PO DAILY [facility]; Protocol Last Admin: 11/07/23 08:10 Dose: 5 mg Documented By: CHALINO Aspirin (Aspirin Enteric Coated 81 Mg Tablet.) 81 mg PO DAILY [facility] Last Admin: 11/07/23 08:11 Dose: 81 mg Documented By: CHALINO Atenolol (Atenolol 50 Mg Tablet) 50 mg PO DAILY [facility]; Protocol Last Admin: 11/07/23 08:11 Dose: 50 mg Documented By: CHALINO Atorvastatin Calcium (Atorvastatin Calcium 40 Mg Tablet) 40 mg PO DAILY [facility] Last Admin: 11/07/23 08:10 Dose: 40 mg Documented By: CHALINO Enoxaparin Sodium (Enoxaparin Sodium 40 Mg/0.4 Ml Syringe) 40 mg SUBCUT Q24H [facility] Last Admin: 11/07/23 08:09 Dose: 40 mg Documented By: CHALINO Fluoxetine HCl (Fluoxetine Hcl 20 Mg Capsule) 60 mg PO DAILY [facility] Last Admin: 11/07/23 08:14 Dose: 60 mg Documented By: CHALINO Fluticasone Propionate (Fluticasone Propionate Nasal 16 Gm [employer] Mdl) 1 spray NOSTRIL-B DAILY [facility] Last Admin: 11/07/23 10:54 Dose: 1 spray Documented By: CHALINO Glucose (Glucose Gel 15 Gm Gel..Gram.) 15 gm PO Q15M PRN; Protocol PRN Reason: per Hypoglycemia Standing Ord. Dextrose (D10) 250 mls @ 750 mls/hr IV Q15M PRN; Protocol PRN Reason: per Hypoglycemia Standing Ord. Vancomycin HCl 1,000 mg/ (Sodium Chloride) 270 mls @ 270 mls/hr IV Q12H [facility] Last Infusion: 11/07/23 09:41 Dose: Infused Documented By: CHALINO Insulin Glargine (Insulin Glargine,Hum.Rec.Anlog 100 Unit/Ml 10 Ml Vial) 50 unit SUBCUT DAILY [facility] Last Admin: 11/07/23 08:08 Dose: 50 unit Documented By: CHALINO Insulin Human Lispro (Insulin Lispro 100 Unit/Ml 3 Ml Vial) 0 unit SUBCUT QIDACHS [facility]; Protocol Last Admin: 11/07/23 11:59 Dose: 4 unit Documented By: CHALINO Melatonin (Melatonin 3 Mg Tablet) 6 mg PO BEDTIME PRN PRN Reason: Insomnia Mirtazapine (Mirtazapine 15 Mg Tablet) 15 mg PO BEDTIME [facility] Last Admin: 11/06/23 21:48 Dose: 15 mg Documented By: STEF Morphine Sulfate (Morphine Sulfate 4 Mg/Ml Cartridge) 4 mg IVPUSH Q4H PRN; Protocol PRN Reason: Pain, Severe (Pain Scale 7-10) Last Admin: 11/07/23 08:24 Dose: 4 mg Documented By: CHALINO Omeprazole (Omeprazole 40 Mg Capsule.) 40 mg PO BID [facility] Last Admin: 11/07/23 08:11 Dose: 40 mg Documented By: CHALINO Ondansetron HCl (Ondansetron Hcl 4 Mg/2 Ml Vial) 4 mg IVPUSH Q8H PRN PRN Reason: Nausea and Vomiting Oxycodone HCl (Oxycodone Hcl Immed Release 5 Mg Tablet) 5 mg PO Q4H PRN PRN Reason: Pain, Moderate(Pain Scale 4-6) Last Admin: 11/06/23 11:38 Dose: 5 mg Documented By: TOYA Pharmacy Consult (Consult Rx Vancomycin Dosing) 1 each MISCELLANE DAILY PRN PRN Reason: Consult order Polyethylene Glycol (Polyethylene Glycol 3350 17 Gm Powd.Pack) 17 gm PO DAILY [facility] Last Admin: 11/07/23 09:32 Dose: 17 gm Documented By: CHALINO Pyridoxine HCl (Pyridoxine Hcl (Vitamin B6) 50 Mg Tablet) 50 mg PO DAILY [facility] Last Admin: 11/07/23 08:11 Dose: 50 mg Documented By: CHALINO Senna (Sennosides 8.6 Mg Tablet) 17.2 mg PO DAILY [facility] Last Admin: 11/07/23 08:10 Dose: 17.2 mg Documented By: CHALINO Sodium Chloride (0.9 % Sodium Chloride Flush 3 Ml Syringe) 3 ml IVFLUSH QSHIFT [facility] Last Admin: 11/07/23 08:28 Dose: 3 ml Documented By: CHALINO Sodium Chloride (0.9 % Sodium Chloride Flush 10 Ml Syringe) 5 ml IVFLUSH TID [facility] Last Admin: 11/07/23 09:31 Dose: 5 ml Documented By: CHALINO Labs 11/05/23 06:03 11/07/23 06:05 Labs: Laboratory Results - last 24 hr 11/06/23 11/06/23 11/07/23 16:25 20:37 06:04 Estim Creat Clear Calc Estimated GFR POC Glucose 130 H 244 H Random Vancomycin 14.3 L 11/07/23 11/07/23 11/07/23 06:05 07:28 11:21 Estim Creat Clear Calc 67.6 Estimated GFR 52 POC Glucose 131 H 233 H Random Vancomycin Assessment and Plan (1) Sepsis: Status: Acute (2) Cellulitis: Status: Acute (3) Diabetes mellitus with hyperglycemia, with long-term current use of insulin: Status: Acute Plan d5 68yo M with DM2 with neuropathy, HTN, HLD, GERD, CKD3, mood disorder, gout presenting with RLE swelling/redness admittted for sepsis due to DM foot infection sepsis due to DM infection of R foot with abscess + cellulitis - 11/02- vanco + pip-dejan, pip-dejan discontinued yesterday - 11/04 R foot ulcer debridement; wound care: Wet-to-dry (lightly moistened saline 2 x 2 gauze) dressing to the right foot wound followed by fluff gauze and Kerlix. - 11/05 PICC placed - per ID 6 wk of IV vancomycin - monitor vanco trough + SCr weekly DM2 with hyperglycemia - basal-bolus insulin HLD - statin HTN - atenolol + amlodipine CKD3 - SCr at baseline, monitor periodically GERD - PPI mood disorder - continue fluoxetine+ mirtazapine VTE ppx - LMWH dispo - plan STR In my clinical judgment, the patient requires continued inpatient hospitalization for the following reasons: IV ABX + placement Total time managing care of this patient today: 40 minutes. Quality Stroke Does the patient have a stroke diagnosis?: No VTE Prior VTE?: No VTE Risk Level:: Medical - moderate - high VTE Device Contraindication: Treatment Not Indicated VTE Drug Contraindication: N/A - Med Ordered
[2023-11-07 16:47] LABS: Glucose, Whole Blood 136 mg/dL (60-115)
[2023-11-07] MEDS: Mirtazapine 15 MG TABLET PO (19:52)
[2023-11-07 20:29] LABS: Glucose, Whole Blood 146 mg/dL (60-115)
[2023-11-08 03:55] VITALS: BP 160/76; PULSE 52; RESP 18; TEMP 36.3; O2SAT 97
[2023-11-08 07:13] LABS: Vancomycin Random 16.4 mcg/mL (15-20)
[2023-11-08 07:16] LABS: Creatinine Clr Calc Pharmacy 80.8; Estimated Glomerular Filt Rate > 60
[2023-11-08 07:44] VITALS: BP 191/77; PULSE 50; RESP 17; TEMP 36.9; O2SAT 93
--- NOTE | 2023-11-08 07:53 | HE.PHANOTE ---
RE YAMINI Patients level came back this morning at 16.4. Will continue with current dose 1000 mg Q12H. Next level tomorrow 11/08 @0600.
[2023-11-08 07:54] LABS: Glucose, Whole Blood 85 mg/dL (60-115)
[2023-11-08] MEDS: Morphine Sulfate 4 MG/ML CARTRIDGE IVPUSH ×3 (08:26→20:58)
[2023-11-08] MEDS: 0.9 % Sodium Chloride Flush 3 ML SYRINGE IVFLUSH ×3 (08:27→22:07)
[2023-11-08] MEDS: Enoxaparin Sodium 40 MG/0.4 ML SYRINGE SUBCUT (08:28)
[2023-11-08] MEDS: polyethylene glycoL 3350 17 GM POWD.PACK PO (08:29)
[2023-11-08] MEDS: Pyridoxine HCl (Vitamin B6) 50 MG TABLET PO (08:30)
[2023-11-08] MEDS: Omeprazole 40 MG CAPSULE.DR PO ×2 (08:30→20:58)
[2023-11-08] MEDS: Atorvastatin Calcium 40 MG TABLET PO (08:30)
[2023-11-08] MEDS: amLODIPine Besylate 5 MG TABLET PO ×2 (08:31→11:22)
[2023-11-08] MEDS: FLUoxetine HCl 20 MG CAPSULE 60 MG PO (08:31)
[2023-11-08] MEDS: atenoloL 50 MG TABLET PO (08:31)
[2023-11-08] MEDS: Sennosides 8.6 MG TABLET 17.2 MG PO (08:31)
[2023-11-08] MEDS: Aspirin Enteric Coated 81 MG TABLET.DR PO (08:31)
[2023-11-08] MEDS: 0.9 % Sodium Chloride Flush 10 ML SYRINGE 5 ML IVFLUSH ×2 (08:34→15:27)
[2023-11-08] MEDS: vancomycin HCL 1,000 MG in 0.9 % Sodium Chloride 250 ML 270 MG IV ×2 (08:40→20:55)
[2023-11-08] MEDS: Fluticasone Propionate Nasal 16 GM SPRAY 1 SPRAY NOSTRIL-B (09:40)
[2023-11-08] MEDS: Insulin Glargine,Hum.rec.anlog 100 UNIT/ML 10 ML VIAL 50 UNIT SUBCUT (09:40)
--- NOTE | 2023-11-08 10:37 | P.PNIM_ITS ---
Subjective Subjective Date of Service: 11/08/23 Interval History: R foot pain controlled no fever BP high Review of Systems Review of Systems: Yes all other systems are reviewed and are negative Physical Exam 2 Vital Signs: Vital Signs: Last Vital Signs Temp 98.5 F 11/08/23 07:44 Pulse 50 11/08/23 07:44 Resp 17 11/08/23 07:44 BP 191/77 H 11/08/23 07:44 Pulse Ox 93 11/08/23 07:44 O2 Del Method Room Air 11/08/23 07:44 O2 Flow Rate 6 11/05/23 10:20 BMI result Body Mass Index 32.5 Gen: in no acute distress HEENT: sclera anicteric, moist mucus membranes Neck: supple Lungs: clear to auscultation bilaterally Heart: regular rate and rhythm, no murmurs Abd: soft, non-tender, non-distended Ext: no edema, RUE with PICC, R foot with dry dressing Skin: warm/well-perfused Neuro: alert and oriented x3, no focal findings Psych: appropriate affect Objective Data Active Medications Acetaminophen (Acetaminophen 325 Mg Tablet) 650 mg PO Q6H PRN PRN Reason: Pain, Mild (Pain Scale 1-3) Last Admin: 11/03/23 02:26 Dose: 650 mg Documented By: RICCARDO Albuterol Sulfate (Albuterol Sulfate 90 Mcg 8 Gm Inhaler) 2 puff INHALE RQ6H PRN PRN Reason: shortness of breath or wheezing Amlodipine Besylate (Amlodipine Besylate 5 Mg Tablet) 5 mg PO DAILY [facility]; Protocol Last Admin: 11/08/23 08:31 Dose: 5 mg Documented By: CHALINO Aspirin (Aspirin Enteric Coated 81 Mg Tablet.) 81 mg PO DAILY [facility] Last Admin: 11/08/23 08:31 Dose: 81 mg Documented By: CHALINO Atenolol (Atenolol 50 Mg Tablet) 50 mg PO DAILY [facility]; Protocol Last Admin: 11/08/23 08:31 Dose: 50 mg Documented By: CHALINO Atorvastatin Calcium (Atorvastatin Calcium 40 Mg Tablet) 40 mg PO DAILY [facility] Last Admin: 11/08/23 08:30 Dose: 40 mg Documented By: CHALINO Enoxaparin Sodium (Enoxaparin Sodium 40 Mg/0.4 Ml Syringe) 40 mg SUBCUT Q24H [facility] Last Admin: 11/08/23 08:28 Dose: 40 mg Documented By: CHALINO Fluoxetine HCl (Fluoxetine Hcl 20 Mg Capsule) 60 mg PO DAILY [facility] Last Admin: 11/08/23 08:31 Dose: 60 mg Documented By: CHALINO Fluticasone Propionate (Fluticasone Propionate Nasal 16 Gm [place]) 1 spray NOSTRIL-B DAILY [facility] Last Admin: 11/08/23 09:40 Dose: 1 spray Documented By: CHALINO Glucose (Glucose Gel 15 Gm Gel..Gram.) 15 gm PO Q15M PRN; Protocol PRN Reason: per Hypoglycemia Standing Ord. Dextrose (D10) 250 mls @ 750 mls/hr IV Q15M PRN; Protocol PRN Reason: per Hypoglycemia Standing Ord. Vancomycin HCl 1,000 mg/ (Sodium Chloride) 270 mls @ 270 mls/hr IV Q12H [facility] Last Infusion: 11/08/23 09:43 Dose: Infused Documented By: CHALINO Insulin Glargine (Insulin Glargine,Hum.Rec.Anlog 100 Unit/Ml 10 Ml Vial) 50 unit SUBCUT DAILY [facility] Last Admin: 11/08/23 09:40 Dose: 50 unit Documented By: CHALINO Insulin Human Lispro (Insulin Lispro 100 Unit/Ml 3 Ml Vial) 0 unit SUBCUT QIDACHS [facility]; Protocol Last Admin: 11/08/23 08:03 Dose: Not Given Documented By: CHALINO Non-Admin Reason: No Insulin Coverage Melatonin (Melatonin 3 Mg Tablet) 6 mg PO BEDTIME PRN PRN Reason: Insomnia Mirtazapine (Mirtazapine 15 Mg Tablet) 15 mg PO BEDTIME [facility] Last Admin: 11/07/23 19:52 Dose: 15 mg Documented By: RIP Morphine Sulfate (Morphine Sulfate 4 Mg/Ml Cartridge) 4 mg IVPUSH Q4H PRN; Protocol PRN Reason: Pain, Severe (Pain Scale 7-10) Last Admin: 11/08/23 08:26 Dose: 4 mg Documented By: CHALINO Omeprazole (Omeprazole 40 Mg Capsule.Dr) 40 mg PO BID [facility] Last Admin: 11/08/23 08:30 Dose: 40 mg Documented By: CHALINO Ondansetron HCl (Ondansetron Hcl 4 Mg/2 Ml Vial) 4 mg IVPUSH Q8H PRN PRN Reason: Nausea and Vomiting Oxycodone HCl (Oxycodone Hcl Immed Release 5 Mg Tablet) 5 mg PO Q4H PRN PRN Reason: Pain, Moderate(Pain Scale 4-6) Last Admin: 11/06/23 11:38 Dose: 5 mg Documented By: TOYA Pharmacy Consult (Consult Rx Vancomycin Dosing) 1 each MISCELLANE DAILY PRN PRN Reason: Consult order Polyethylene Glycol (Polyethylene Glycol 3350 17 Gm Powd.Pack) 17 gm PO DAILY [facility] Last Admin: 11/08/23 08:29 Dose: 17 gm Documented By: CHALINO Pyridoxine HCl (Pyridoxine Hcl (Vitamin B6) 50 Mg Tablet) 50 mg PO DAILY [facility] Last Admin: 11/08/23 08:30 Dose: 50 mg Documented By: CHALINO Senna (Sennosides 8.6 Mg Tablet) 17.2 mg PO DAILY [facility] Last Admin: 11/08/23 08:31 Dose: 17.2 mg Documented By: CHALINO Sodium Chloride (0.9 % Sodium Chloride Flush 3 Ml Syringe) 3 ml IVFLUSH QSHIFT [facility] Last Admin: 11/08/23 08:27 Dose: 3 ml Documented By: CHALINO Sodium Chloride (0.9 % Sodium Chloride Flush 10 Ml Syringe) 5 ml IVFLUSH TID [facility] Last Admin: 11/08/23 08:34 Dose: 5 ml Documented By: CHALINO Labs 11/05/23 06:03 11/08/23 06:35 Labs: Laboratory Results - last 24 hr 11/07/23 11/07/23 11/07/23 11:21 16:43 20:15 Hold Purple Top Estim Creat Clear Calc Estimated GFR POC Glucose 233 H 136 H 146 H Random Vancomycin 11/08/23 11/08/23 06:35 07:51 Hold Purple Top SEE NOTE Estim Creat Clear Calc 80.8 Estimated GFR > 60 POC Glucose 85 Random Vancomycin 16.4 Microbiology Microbiology Results: Microbiology 11/03/23 00:07 Blood Culture - Final Blood - Venous No growth after 5 days. 11/02/23 19:56 Blood Culture - Final Blood - Venous No growth after 5 days. Assessment and Plan (1) Sepsis: Status: Acute (2) Cellulitis: Status: Acute (3) Diabetes mellitus with hyperglycemia, with long-term current use of insulin: Status: Acute Plan d6 68yo M with DM2 with neuropathy, HTN, HLD, GERD, CKD3, mood disorder, gout presenting with RLE swelling/redness admitted for sepsis due to DM foot infection sepsis due to DM infection of R foot with abscess + cellulitis - 11/02- vanco + pip-dejan, pip-dejan discontinued 11/05 - 11/04 R foot ulcer debridement; wound care: Wet-to-dry (lightly moistened saline 2 x 2 gauze) dressing to the right foot wound followed by fluff gauze and Kerlix. - 11/05 PICC placed - per ID 6 wk of IV vancomycin, end date 12/15/23 - monitor vanco trough + SCr weekly - will need outpt f/u with Surgery and ID DM2 with hyperglycemia - basal-bolus insulin HLD - statin HTN, uncontrolled - atenolol + amlodipine; increase dose of amlodipine 5->10 mg/d CKD3 - SCr at baseline, monitor periodically GERD - PPI mood disorder - continue fluoxetine+ mirtazapine VTE ppx - LMWH dispo - plan STR In my clinical judgment, the patient requires continued inpatient hospitalization for the following reasons: IV ABX + placement Total time managing care of this patient today: 35 minutes. Quality Stroke Does the patient have a stroke diagnosis?: No VTE Prior VTE?: No VTE Risk Level:: Medical - moderate - high VTE Device Contraindication: Treatment Not Indicated VTE Drug Contraindication: N/A - Med Ordered
[2023-11-08 11:41] LABS: Glucose, Whole Blood 163 mg/dL (60-115)
[2023-11-08 12:00] VITALS: BP 179/77; PULSE 50; RESP 17; TEMP 36.2; O2SAT 98
[2023-11-08] MEDS: Insulin Lispro 100 UNIT/ML 3 ML VIAL SUBCUT ×3 (12:08→22:05)
[2023-11-08 15:29] VITALS: BP 192/81; PULSE 50; RESP 18; TEMP 36.3; O2SAT 94
[2023-11-08 16:37] LABS: Glucose, Whole Blood 174 mg/dL (60-115)
[2023-11-08 19:30] VITALS: BP 173/72; PULSE 52; RESP 18; TEMP 36.2; O2SAT 97
[2023-11-08 20:13] LABS: Glucose, Whole Blood 181 mg/dL (60-115)
[2023-11-08] MEDS: Mirtazapine 15 MG TABLET PO (20:58)
[2023-11-08 23:35] VITALS: BP 155/67; PULSE 50; RESP 18; TEMP 36.3; O2SAT 97
[2023-11-09 03:46] VITALS: BP 150/70; PULSE 51; RESP 18; TEMP 36.1; O2SAT 97
[2023-11-09 05:56] LABS: Estimated Glomerular Filt Rate 43
[2023-11-09 05:57] LABS: Vancomycin Random 21.7 mcg/mL (15-20)
[2023-11-09 06:13] LABS: Erythrocyte Sedimentation Rate 105 MM/HR (0-15)
--- NOTE | 2023-11-09 06:45 | HE.PHANOTE ---
Vancomycin Vancomcyin trough 21.7 this morning. Scr increased to 1.60 from 1.13 yesterday. Holding morning 0800 dose and will get a random level/scr this even before next dose is due. Changing to 1500 mg q24h for a predicted AUC of 504.
[2023-11-09 07:26] VITALS: BP 176/84; PULSE 46; RESP 17; TEMP 36.2; O2SAT 98
[2023-11-09 08:02] LABS: Glucose, Whole Blood 191 mg/dL (60-115)
[2023-11-09] MEDS: Morphine Sulfate 4 MG/ML CARTRIDGE IVPUSH ×3 (08:29→19:58)
[2023-11-09] MEDS: FLUoxetine HCl 20 MG CAPSULE 60 MG PO (08:30)
[2023-11-09] MEDS: Atorvastatin Calcium 40 MG TABLET PO (08:30)
[2023-11-09] MEDS: Aspirin Enteric Coated 81 MG TABLET.DR PO (08:30)
[2023-11-09] MEDS: Omeprazole 40 MG CAPSULE.DR PO ×2 (08:30→19:40)
[2023-11-09] MEDS: Sennosides 8.6 MG TABLET 17.2 MG PO (08:30)
[2023-11-09] MEDS: polyethylene glycoL 3350 17 GM POWD.PACK PO (08:31)
[2023-11-09] MEDS: Pyridoxine HCl (Vitamin B6) 50 MG TABLET PO (08:31)
[2023-11-09] MEDS: amLODIPine Besylate 10 MG TABLET PO (08:31)
[2023-11-09 08:32] VITALS: PULSE 50
[2023-11-09] MEDS: Insulin Glargine,Hum.rec.anlog 100 UNIT/ML 10 ML VIAL 50 UNIT SUBCUT (08:32)
[2023-11-09] MEDS: Insulin Lispro 100 UNIT/ML 3 ML VIAL SUBCUT ×4 (08:33→19:49)
[2023-11-09] MEDS: Enoxaparin Sodium 40 MG/0.4 ML SYRINGE SUBCUT (08:33)
--- NOTE | 2023-11-09 09:10 | MHC.CM.PN ---
Addendum entered by Misty Barber 11/09/23 14:26: CM MET WITH PT AND DAUGHTER, MILDRED, SHE IS CONCERNED ABOUT PT GOING TO THIS SNF SHE REQUESTS THE REFERRAL BE SENT OUT AGAIN ON Thursday TO DETERMINE IF ANYTHING ELSE HAS OPENED UP THEY ARE STILL HOPING FOR PT TO BE CLOSER TO CT, THEY DO NOT WANT TO ACCEPT THE [facility] OR [facility] BED OFF[facility] Original Note: PT ACCEPTED A BED OFFER FROM [facility] AND AUTH REQUEST WAS SUBMITTED ON THURSDAY PER LIAISON, [employer] REP CALLED YESTERDAY TO DISCUSS BARRIERS TO PT DISCHARGING HOME, WHICH WERE PROVIDED. [employer] HAS NOT YET PROVIDED A DECISION, AND THEY ARE NOW CLOSED FOR THE HOLIDAY. CM WILL FOLLOW UP TOMORROW MORNING DCP: STR AT [facility] FOR IV ABX, WOUND CARE AND PT. TRANSPORT TBD
[2023-11-09] MEDS: 0.9 % Sodium Chloride 1,000 ML 100 ML IVCONT ×2 (10:30→19:41)
[2023-11-09] MEDS: 0.9 % Sodium Chloride Flush 10 ML SYRINGE 5 ML IVFLUSH ×2 (10:31→15:15)
[2023-11-09] MEDS: Fluticasone Propionate Nasal 16 GM SPRAY 1 SPRAY NOSTRIL-B (10:36)
[2023-11-09 11:24] LABS: Glucose, Whole Blood 186 mg/dL (60-115)
[2023-11-09 11:59] VITALS: BP 184/76; PULSE 50; RESP 17; TEMP 36.2; O2SAT 94
--- NOTE | 2023-11-09 12:40 | P.PNIM_ITS ---
Subjective Subjective Date of Service: 11/09/23 Interval History: no complaints vanco level slightly high and Cr up Review of Systems Review of Systems: Yes all other systems are reviewed and are negative Physical Exam 2 Vital Signs: Vital Signs: Last Vital Signs Temp 97.2 F 11/09/23 11:59 Pulse 50 11/09/23 11:59 Resp 17 11/09/23 11:59 BP 184/76 H 11/09/23 11:59 Pulse Ox 94 11/09/23 11:59 O2 Del Method Room Air 11/09/23 11:59 O2 Flow Rate 6 11/05/23 10:20 BMI result Body Mass Index 32.5 Gen: in no acute distress HEENT: sclera anicteric, moist mucus membranes Neck: supple Lungs: clear to auscultation bilaterally Heart: regular rate and rhythm, no murmurs Abd: soft, non-tender, non-distended Ext: no edema, RUE with PICC, R foot with dry dressing Skin: warm/well-perfused Neuro: alert and oriented x3, no focal findings Psych: appropriate affect Objective Data Active Medications Acetaminophen (Acetaminophen 325 Mg Tablet) 650 mg PO Q6H PRN PRN Reason: Pain, Mild (Pain Scale 1-3) Last Admin: 11/03/23 02:26 Dose: 650 mg Documented By: RICCARDO Albuterol Sulfate (Albuterol Sulfate 90 Mcg 8 Gm Inhaler) 2 puff INHALE RQ6H PRN PRN Reason: shortness of breath or wheezing Amlodipine Besylate (Amlodipine Besylate 10 Mg Tablet) 10 mg PO DAILY [facility]; Protocol Last Admin: 11/09/23 08:31 Dose: 10 mg Documented By: AYESHA Aspirin (Aspirin Enteric Coated 81 Mg Tablet.Dr) 81 mg PO DAILY [facility] Last Admin: 11/09/23 08:30 Dose: 81 mg Documented By: AYESHA Atenolol (Atenolol 50 Mg Tablet) 50 mg PO DAILY [facility]; Protocol Last Admin: 11/09/23 08:32 Dose: Not Given Documented By: AYESHA Non-Admin Reason: Decreased Heart Rate Atorvastatin Calcium (Atorvastatin Calcium 40 Mg Tablet) 40 mg PO DAILY [facility] Last Admin: 11/09/23 08:30 Dose: 40 mg Documented By: AYESHA Enoxaparin Sodium (Enoxaparin Sodium 40 Mg/0.4 Ml Syringe) 40 mg SUBCUT Q24H [facility] Last Admin: 11/09/23 08:33 Dose: 40 mg Documented By: AYESHA Fluoxetine HCl (Fluoxetine Hcl 20 Mg Capsule) 60 mg PO DAILY [facility] Last Admin: 11/09/23 08:30 Dose: 60 mg Documented By: AYESHA Fluticasone Propionate (Fluticasone Propionate Nasal 16 Gm [place]) 1 spray NOSTRIL-B DAILY [facility] Last Admin: 11/09/23 10:36 Dose: 1 spray Documented By: AYESHA Glucose (Glucose Gel 15 Gm Gel..Gram.) 15 gm PO Q15M PRN; Protocol PRN Reason: per Hypoglycemia Standing Ord. Dextrose (D10) 250 mls @ 750 mls/hr IV Q15M PRN; Protocol PRN Reason: per Hypoglycemia Standing Ord. Vancomycin HCl 1,500 mg/ (Sodium Chloride) 500 mls @ 333.333 mls/hr IV Q24H [facility] Sodium Chloride (Ns) 1,000 mls @ 100 mls/hr IVCONT .Q10H [facility] Stop: 11/10/23 04:29 Last Admin: 11/09/23 10:30 Dose: 100 mls/hr Documented By: AYESHA Insulin Glargine (Insulin Glargine,Hum.Rec.Anlog 100 Unit/Ml 10 Ml Vial) 50 unit SUBCUT DAILY [facility] Last Admin: 11/09/23 08:32 Dose: 50 unit Documented By: AYESHA Insulin Human Lispro (Insulin Lispro 100 Unit/Ml 3 Ml Vial) 0 unit SUBCUT QIDACHS [facility]; Protocol Last Admin: 11/09/23 11:43 Dose: 2 unit Documented By: AYESHA Melatonin (Melatonin 3 Mg Tablet) 6 mg PO BEDTIME PRN PRN Reason: Insomnia Mirtazapine (Mirtazapine 15 Mg Tablet) 15 mg PO BEDTIME [facility] Last Admin: 11/08/23 20:58 Dose: 15 mg Documented By: TARSONG Morphine Sulfate (Morphine Sulfate 4 Mg/Ml Cartridge) 4 mg IVPUSH Q4H PRN; Protocol PRN Reason: Pain, Severe (Pain Scale 7-10) Last Admin: 11/09/23 08:29 Dose: 4 mg Documented By: AYESHA Omeprazole (Omeprazole 40 Mg Capsule.Dr) 40 mg PO BID [facility] Last Admin: 11/09/23 08:30 Dose: 40 mg Documented By: AYESHA Ondansetron HCl (Ondansetron Hcl 4 Mg/2 Ml Vial) 4 mg IVPUSH Q8H PRN PRN Reason: Nausea and Vomiting Oxycodone HCl (Oxycodone Hcl Immed Release 5 Mg Tablet) 5 mg PO Q4H PRN PRN Reason: Pain, Moderate(Pain Scale 4-6) Last Admin: 11/06/23 11:38 Dose: 5 mg Documented By: TOYA Pharmacy Consult (Consult Rx Vancomycin Dosing) 1 each MISCELLANE DAILY PRN PRN Reason: Consult order Polyethylene Glycol (Polyethylene Glycol 3350 17 Gm Powd.Pack) 17 gm PO DAILY [facility] Last Admin: 11/09/23 08:31 Dose: 17 gm Documented By: AYESHA Pyridoxine HCl (Pyridoxine Hcl (Vitamin B6) 50 Mg Tablet) 50 mg PO DAILY [facility] Last Admin: 11/09/23 08:31 Dose: 50 mg Documented By: AYESHA Senna (Sennosides 8.6 Mg Tablet) 17.2 mg PO DAILY [facility] Last Admin: 11/09/23 08:30 Dose: 17.2 mg Documented By: AYESHA Sodium Chloride (0.9 % Sodium Chloride Flush 3 Ml Syringe) 3 ml IVFLUSH QSHIFT [facility] Last Admin: 11/09/23 10:36 Dose: Not Given Documented By: AYESHA Non-Admin Reason: PICC flushed' Sodium Chloride (0.9 % Sodium Chloride Flush 10 Ml Syringe) 5 ml IVFLUSH TID [facility] Last Admin: 11/09/23 10:31 Dose: 5 ml Documented By: AYESHA Labs 11/05/23 06:03 11/09/23 05:25 Labs: Laboratory Results - last 24 hr 11/08/23 11/08/23 11/09/23 16:25 20:09 05:25 ESR 105 H Hold Purple Top SEE NOTE Estim Creat Clear Calc 57.0 Estimated GFR 43 POC Glucose 174 H 181 H C-Reactive Protein 2.30 H Random Vancomycin 21.7 H 11/09/23 11/09/23 07:31 11:13 ESR Hold Purple Top Estim Creat Clear Calc Estimated GFR POC Glucose 191 H 186 H C-Reactive Protein Random Vancomycin Assessment and Plan (1) Sepsis: Status: Acute (2) Cellulitis: Status: Acute (3) Diabetes mellitus with hyperglycemia, with long-term current use of insulin: Status: Acute Plan d6 68yo M with DM2 with neuropathy, HTN, HLD, GERD, CKD3, mood disorder, gout presenting with RLE swelling/redness admitted for sepsis due to DM foot infection sepsis due to DM infection of R foot with abscess + cellulitis - 11/02- vanco + pip-dejan, pip-dejan discontinued 11/05 - 11/04 R foot ulcer debridement; wound care: Wet-to-dry (lightly moistened saline 2 x 2 gauze) dressing to the right foot wound followed by fluff gauze and Kerlix. - 11/05 PICC placed - per ID 6 wk of IV vancomycin, end date 12/15/23 - monitor vanco trough + SCr weekly as outpt; next trough tonight at 19:00 - will need outpt f/u with Surgery and ID DELVIS/CKD3 - SCr up, will give 2L IV NS and recheck BMP in AM DM2 with hyperglycemia - basal-bolus insulin HLD - statin HTN, uncontrolled - atenolol + amlodipine; increased dose of amlodipine 5->10 mg/d GERD - PPI mood disorder - continue fluoxetine+ mirtazapine VTE ppx - LMWH dispo - plan STR In my clinical judgment, the patient requires continued inpatient hospitalization for the following reasons: IV ABX + placement Total time managing care of this patient today: 35 minutes. Quality Stroke Does the patient have a stroke diagnosis?: No VTE Prior VTE?: No VTE Risk Level:: Medical - moderate - high VTE Device Contraindication: Treatment Not Indicated VTE Drug Contraindication: N/A - Med Ordered
[2023-11-09 15:48] VITALS: BP 158/68; PULSE 54; RESP 18; TEMP 36.4; O2SAT 97
[2023-11-09 16:27] LABS: Glucose, Whole Blood 174 mg/dL (60-115)
[2023-11-09 19:29] VITALS: BP 171/80; PULSE 52; RESP 16; TEMP 36.1; O2SAT 97
[2023-11-09 19:31] LABS: Creatinine Clr Calc Pharmacy 54.3; Estimated Glomerular Filt Rate 41
[2023-11-09] MEDS: Mirtazapine 15 MG TABLET PO (19:40)
[2023-11-09 19:42] LABS: Vancomycin Random 12.9 mcg/mL (15-20)
[2023-11-09 20:02] LABS: Glucose, Whole Blood 187 mg/dL (60-115)
--- NOTE | 2023-11-09 20:35 | HE.PHANOTE ---
RE: VANCO DOSING Patient's sCr is still high (1.68) in the evening, trough came back as 12.9. So renal is not doing well, pt was able to clear about 9 mg/L out of system. With the indication of sepsis, we still want to treat patient and monitor renal function closely. Dose is reduced to 1000 mg q24h, starting at 2300. Next random is scheduled for 11/10/23@2100.
[2023-11-09] MEDS: vancomycin HCL 1,000 MG in 0.9 % Sodium Chloride 250 ML 270 MG IV (23:13)
[2023-11-10 04:00] VITALS: BP 140/65; PULSE 58; RESP 16; TEMP 36.1; O2SAT 96
[2023-11-10 07:22] LABS: Glucose, Whole Blood 155 mg/dL (60-115)
--- NOTE | 2023-11-10 07:36 | PM.PNGS ---
Subjective Subjective Date of Service: 11/10/23 Interval history: Denies foot pain, awaiting placement in rehab. Physical Exam Vital Signs: Vital Signs: Last Vital Signs Temp 96.9 F 11/10/23 04:00 Pulse 58 11/10/23 04:00 Resp 16 11/10/23 04:00 BP 140/65 H 11/10/23 04:00 Pulse Ox 96 11/10/23 04:00 O2 Del Method Room Air 11/10/23 04:00 O2 Flow Rate 6 11/05/23 10:20 BMI result Body Mass Index 32.5 Const: General: no acute distress Orientation/consciousness: patient oriented x3 Resp: Effort & Inspection: normal respiratory effort Neuro: General: patient oriented x3 Extrem: Other: Dressings changed to right foot. Small amount of necrotic skin debrided with scissors, 1 x 1 cm. Base with minimal granulation tissue. Wet-to-dry dressings stopped and dura fiber Ag applied followed by fluff gauze and Kerlix. Objective Data Active Medications Acetaminophen (Acetaminophen 325 Mg Tablet) 650 mg PO Q6H PRN PRN Reason: Pain, Mild (Pain Scale 1-3) Last Admin: 11/03/23 02:26 Dose: 650 mg Documented By: RICCARDO Albuterol Sulfate (Albuterol Sulfate 90 Mcg 8 Gm Inhaler) 2 puff INHALE RQ6H PRN PRN Reason: shortness of breath or wheezing Amlodipine Besylate (Amlodipine Besylate 10 Mg Tablet) 10 mg PO DAILY [facility]; Protocol Last Admin: 11/09/23 08:31 Dose: 10 mg Documented By: AYESHA Aspirin (Aspirin Enteric Coated 81 Mg Tablet.) 81 mg PO DAILY [facility] Last Admin: 11/09/23 08:30 Dose: 81 mg Documented By: AYESHA Atenolol (Atenolol 50 Mg Tablet) 50 mg PO DAILY [facility]; Protocol Last Admin: 11/09/23 08:32 Dose: Not Given Documented By: AYESHA Non-Admin Reason: Decreased Heart Rate Atorvastatin Calcium (Atorvastatin Calcium 40 Mg Tablet) 40 mg PO DAILY [facility] Last Admin: 11/09/23 08:30 Dose: 40 mg Documented By: AYESHA Enoxaparin Sodium (Enoxaparin Sodium 40 Mg/0.4 Ml Syringe) 40 mg SUBCUT Q24H [facility] Last Admin: 11/09/23 08:33 Dose: 40 mg Documented By: AYESHA Fluoxetine HCl (Fluoxetine Hcl 20 Mg Capsule) 60 mg PO DAILY [facility] Last Admin: 11/09/23 08:30 Dose: 60 mg Documented By: AYESHA Fluticasone Propionate (Fluticasone Propionate Nasal 16 Gm [place]) 1 spray NOSTRIL-B DAILY [facility] Last Admin: 11/09/23 10:36 Dose: 1 spray Documented By: AYESHA Glucose (Glucose Gel 15 Gm Gel..Gram.) 15 gm PO Q15M PRN; Protocol PRN Reason: per Hypoglycemia Standing Ord. Dextrose (D10) 250 mls @ 750 mls/hr IV Q15M PRN; Protocol PRN Reason: per Hypoglycemia Standing Ord. Vancomycin HCl 1,000 mg/ (Sodium Chloride) 270 mls @ 270 mls/hr IV Q24H [facility] Last Infusion: 11/10/23 00:19 Dose: Infused Documented By: SARATH Insulin Glargine (Insulin Glargine,Hum.Rec.Anlog 100 Unit/Ml 10 Ml Vial) 50 unit SUBCUT DAILY [facility] Last Admin: 11/09/23 08:32 Dose: 50 unit Documented By: AYESHA Insulin Human Lispro (Insulin Lispro 100 Unit/Ml 3 Ml Vial) 0 unit SUBCUT QIDACHS [facility]; Protocol Last Admin: 11/09/23 19:49 Dose: 2 unit Documented By: SARATH Melatonin (Melatonin 3 Mg Tablet) 6 mg PO BEDTIME PRN PRN Reason: Insomnia Mirtazapine (Mirtazapine 15 Mg Tablet) 15 mg PO BEDTIME [facility] Last Admin: 11/09/23 19:40 Dose: 15 mg Documented By: SARATH Morphine Sulfate (Morphine Sulfate 4 Mg/Ml Cartridge) 4 mg IVPUSH Q4H PRN; Protocol PRN Reason: Pain, Severe (Pain Scale 7-10) Last Admin: 11/09/23 19:58 Dose: 4 mg Documented By: SARATH Omeprazole (Omeprazole 40 Mg Capsule.) 40 mg PO BID [facility] Last Admin: 11/09/23 19:40 Dose: 40 mg Documented By: SARATH Ondansetron HCl (Ondansetron Hcl 4 Mg/2 Ml Vial) 4 mg IVPUSH Q8H PRN PRN Reason: Nausea and Vomiting Oxycodone HCl (Oxycodone Hcl Immed Release 5 Mg Tablet) 5 mg PO Q4H PRN PRN Reason: Pain, Moderate(Pain Scale 4-6) Last Admin: 11/06/23 11:38 Dose: 5 mg Documented By: TOYA Pharmacy Consult (Consult Rx Vancomycin Dosing) 1 each MISCELLANE DAILY PRN PRN Reason: Consult order Polyethylene Glycol (Polyethylene Glycol 3350 17 Gm Powd.Pack) 17 gm PO DAILY [facility] Last Admin: 11/09/23 08:31 Dose: 17 gm Documented By: AYESHA Pyridoxine HCl (Pyridoxine Hcl (Vitamin B6) 50 Mg Tablet) 50 mg PO DAILY [facility] Last Admin: 11/09/23 08:31 Dose: 50 mg Documented By: AYESHA Senna (Sennosides 8.6 Mg Tablet) 17.2 mg PO DAILY [facility] Last Admin: 11/09/23 08:30 Dose: 17.2 mg Documented By: AYESHA Sodium Chloride (0.9 % Sodium Chloride Flush 3 Ml Syringe) 3 ml IVFLUSH QSHIFT [facility] Last Admin: 11/09/23 19:41 Dose: Not Given Documented By: SARATH Non-Admin Reason: picc 5ml ns Sodium Chloride (0.9 % Sodium Chloride Flush 10 Ml Syringe) 5 ml IVFLUSH TID [facility] Last Admin: 11/09/23 19:41 Dose: Not Given Documented By: SARATH Non-Admin Reason: IV Running Labs 11/05/23 06:03 11/09/23 19:08 Labs: Laboratory Results - last 24 hr 11/09/23 11/09/23 11/09/23 07:31 11:13 16:17 Estim Creat Clear Calc Estimated GFR POC Glucose 191 H 186 H 174 H Random Vancomycin 11/09/23 11/09/23 11/10/23 19:08 19:42 07:09 Estim Creat Clear Calc 54.3 Estimated GFR 41 POC Glucose 187 H 155 H Random Vancomycin 12.9 L Procedures Date of Service Date of Service: 11/10/23 Progress Note: A&P Assessment and plan (1) Abscess of right foot: Status: Acute Assessment and Plan: Wounds previously debrided now with only small area of necrotic skin remaining. This was removed today as noted above. Dressings changed to dura fiber Ag followed by fluff gauze and Kerlix. This should be changed daily. If patient is discharged, should follow-up in office in approximately 2 weeks. Alternatively patient could follow-up at Wound Care. (2) Cellulitis: Status: Acute Assessment and Plan: Cellulitis now resolved. Time Spent With Patient Time: Total time managing care of this patient today ____ minutes. Quality Stroke Does the patient have a stroke diagnosis?: No VTE Prior VTE?: No VTE Risk Level:: Medical - moderate - high VTE Device Contraindication: Treatment Not Indicated VTE Drug Contraindication: N/A - Med Ordered
[2023-11-10 07:42] VITALS: BP 146/80; PULSE 55; RESP 16; TEMP 36.6; O2SAT 97
[2023-11-10] MEDS: Enoxaparin Sodium 40 MG/0.4 ML SYRINGE SUBCUT (07:51)
[2023-11-10] MEDS: polyethylene glycoL 3350 17 GM POWD.PACK PO (07:51)
[2023-11-10] MEDS: Insulin Lispro 100 UNIT/ML 3 ML VIAL SUBCUT ×3 (07:51→20:37)
[2023-11-10] MEDS: Insulin Glargine,Hum.rec.anlog 100 UNIT/ML 10 ML VIAL 50 UNIT SUBCUT (07:51)
[2023-11-10 07:52] VITALS: BP 146/80; PULSE 60
[2023-11-10] MEDS: Sennosides 8.6 MG TABLET 17.2 MG PO (07:52)
[2023-11-10] MEDS: atenoloL 50 MG TABLET PO (07:52)
[2023-11-10] MEDS: Atorvastatin Calcium 40 MG TABLET PO (07:52)
[2023-11-10] MEDS: Aspirin Enteric Coated 81 MG TABLET.DR PO (07:52)
[2023-11-10] MEDS: Omeprazole 40 MG CAPSULE.DR PO ×2 (07:52→19:57)
[2023-11-10] MEDS: amLODIPine Besylate 10 MG TABLET PO (07:52)
[2023-11-10] MEDS: FLUoxetine HCl 20 MG CAPSULE 60 MG PO (07:53)
[2023-11-10] MEDS: Pyridoxine HCl (Vitamin B6) 50 MG TABLET PO (07:53)
[2023-11-10] MEDS: 0.9 % Sodium Chloride Flush 3 ML SYRINGE IVFLUSH (07:55)
[2023-11-10] MEDS: 0.9 % Sodium Chloride Flush 10 ML SYRINGE 5 ML IVFLUSH ×3 (07:56→19:46)
[2023-11-10] MEDS: Morphine Sulfate 4 MG/ML CARTRIDGE IVPUSH (08:00)
[2023-11-10 08:33] LABS: Anion Gap 13 (12-20); Blood Urea Nitrogen 18 mg/dL (9-16); Calcium 8.9 mg/dL (8.4-10.2); Carbon Dioxide 25 mmol/L (22-29); Chloride 105 mmol/L (96-108); Creatinine Clr Calc Pharmacy 70.8; Estimated Glomerular Filt Rate 55; Glucose Random 164 mg/dL (60-115); Potassium 4.5 mmol/L (3.3-5.1); Sodium 138 mmol/L (135-145)
[2023-11-10] MEDS: Fluticasone Propionate Nasal 16 GM SPRAY 1 SPRAY NOSTRIL-B (10:09)
--- NOTE | 2023-11-10 10:10 | HO.WOUND ---
Inpatient wound consult placed for Diabetic foot wound - however foot is treated and followed by Surgical team orders currently in place. Spoke to direct care nurse and hospitalist - no concerns not sure of reason for consult. Will defer to Surgical team for their orders. Wound consult discontinued. Provider and direct care nurse notified to place new consult should inpatient wound care recommendations be needed.
[2023-11-10 10:25] VITALS: BP 146/80; PULSE 60
[2023-11-10 11:14] LABS: Glucose, Whole Blood 269 mg/dL (60-115)
--- NOTE | 2023-11-10 12:15 | HO.PM.IMPN ---
Subjective Subjective Date of Service: 11/10/23 Interval History: no new complaints Review of Systems Review of Systems: Yes all other systems are reviewed and are negative Physical Exam Vital Signs: Vital Signs: Last Vital Signs Temp 97.9 F 11/10/23 07:42 Pulse 60 11/10/23 10:25 Resp 16 11/10/23 07:42 BP 146/80 H 11/10/23 10:25 Pulse Ox 97 11/10/23 07:42 O2 Del Method Room Air 11/10/23 07:42 O2 Flow Rate 6 11/05/23 10:20 BMI result Body Mass Index 32.5 Gen: in no acute distress HEENT: sclera anicteric, moist mucus membranes Neck: supple Lungs: clear to auscultation bilaterally Heart: regular rate and rhythm, no murmurs Abd: soft, non-tender, non-distended Ext: no edema, RUE with PICC, R foot with dry dressing Skin: warm/well-perfused Neuro: alert and oriented x3, no focal findings Psych: appropriate affect Objective Data Active Medications Acetaminophen (Acetaminophen 325 Mg Tablet) 650 mg PO Q6H PRN PRN Reason: Pain, Mild (Pain Scale 1-3) Last Admin: 11/03/23 02:26 Dose: 650 mg Documented By: RICCARDO Albuterol Sulfate (Albuterol Sulfate 90 Mcg 8 Gm Inhaler) 2 puff INHALE RQ6H PRN PRN Reason: shortness of breath or wheezing Amlodipine Besylate (Amlodipine Besylate 10 Mg Tablet) 10 mg PO DAILY [facility]; Protocol Last Admin: 11/10/23 07:52 Dose: 10 mg Documented By: ASA Aspirin (Aspirin Enteric Coated 81 Mg Tablet.Dr) 81 mg PO DAILY [facility] Last Admin: 11/10/23 07:52 Dose: 81 mg Documented By: ASA Atenolol (Atenolol 50 Mg Tablet) 50 mg PO DAILY [facility]; Protocol Last Admin: 11/10/23 07:52 Dose: 50 mg Documented By: ASA Atorvastatin Calcium (Atorvastatin Calcium 40 Mg Tablet) 40 mg PO DAILY [facility] Last Admin: 11/10/23 07:52 Dose: 40 mg Documented By: ASA Enoxaparin Sodium (Enoxaparin Sodium 40 Mg/0.4 Ml Syringe) 40 mg SUBCUT Q24H [facility] Last Admin: 11/10/23 07:51 Dose: 40 mg Documented By: ASA Fluoxetine HCl (Fluoxetine Hcl 20 Mg Capsule) 60 mg PO DAILY [facility] Last Admin: 11/10/23 07:53 Dose: 60 mg Documented By: ASA Fluticasone Propionate (Fluticasone Propionate Nasal 16 Gm [place]) 1 spray NOSTRIL-B DAILY [facility] Last Admin: 11/10/23 10:09 Dose: 1 spray Documented By: ASA Glucose (Glucose Gel 15 Gm Gel..Gram.) 15 gm PO Q15M PRN; Protocol PRN Reason: per Hypoglycemia Standing Ord. Dextrose (D10) 250 mls @ 750 mls/hr IV Q15M PRN; Protocol PRN Reason: per Hypoglycemia Standing Ord. Daptomycin 893.6 mg/ Sodium (Chloride) 67.872 mls @ 100 mls/hr IV Q24H [facility] Insulin Glargine (Insulin Glargine,Hum.Rec.Anlog 100 Unit/Ml 10 Ml Vial) 50 unit SUBCUT DAILY [facility] Last Admin: 11/10/23 07:51 Dose: 50 unit Documented By: ASA Insulin Human Lispro (Insulin Lispro 100 Unit/Ml 3 Ml Vial) 0 unit SUBCUT QIDACHS [facility]; Protocol Last Admin: 11/10/23 11:49 Dose: 6 unit Documented By: ASA Melatonin (Melatonin 3 Mg Tablet) 6 mg PO BEDTIME PRN PRN Reason: Insomnia Mirtazapine (Mirtazapine 15 Mg Tablet) 15 mg PO BEDTIME [facility] Last Admin: 11/09/23 19:40 Dose: 15 mg Documented By: SARATH Omeprazole (Omeprazole 40 Mg Capsule.) 40 mg PO BID [facility] Last Admin: 11/10/23 07:52 Dose: 40 mg Documented By: ASA Ondansetron HCl (Ondansetron Hcl 4 Mg/2 Ml Vial) 4 mg IVPUSH Q8H PRN PRN Reason: Nausea and Vomiting Polyethylene Glycol (Polyethylene Glycol 3350 17 Gm Powd.Pack) 17 gm PO DAILY [facility] Last Admin: 11/10/23 07:51 Dose: 17 gm Documented By: ASA Pyridoxine HCl (Pyridoxine Hcl (Vitamin B6) 50 Mg Tablet) 50 mg PO DAILY [facility] Last Admin: 11/10/23 07:53 Dose: 50 mg Documented By: ASA Senna (Sennosides 8.6 Mg Tablet) 17.2 mg PO DAILY [facility] Last Admin: 11/10/23 07:52 Dose: 17.2 mg Documented By: ASA Sodium Chloride (0.9 % Sodium Chloride Flush 3 Ml Syringe) 3 ml IVFLUSH QSHIFT [facility] Last Admin: 11/10/23 07:55 Dose: 3 ml Documented By: ASA Sodium Chloride (0.9 % Sodium Chloride Flush 10 Ml Syringe) 5 ml IVFLUSH TID [facility] Last Admin: 11/10/23 07:56 Dose: 5 ml Documented By: ASA Labs 11/05/23 06:03 11/10/23 07:48 Labs: Laboratory Results - last 24 hr 11/09/23 11/09/23 11/09/23 16:17 19:08 19:42 Hold Purple Top Anion Gap Estim Creat Clear Calc 54.3 Estimated GFR 41 POC Glucose 174 H 187 H Random Glucose Calcium Total Creatine Kinase Random Vancomycin 12.9 L 11/10/23 11/10/23 11/10/23 07:09 07:48 11:04 Hold Purple Top SEE NOTE Anion Gap 13 Estim Creat Clear Calc 70.8 Estimated GFR 55 POC Glucose 155 H 269 H Random Glucose 164 H Calcium 8.9 Total Creatine Kinase 24 L Random Vancomycin Assessment and Plan (1) Sepsis: Status: Acute (2) Cellulitis: Status: Acute (3) Diabetes mellitus with hyperglycemia, with long-term current use of insulin: Status: Acute Plan d7 68yo M with DM2 with neuropathy, HTN, HLD, GERD, CKD3, mood disorder, gout presenting with RLE swelling/redness admitted for sepsis due to DM foot infection sepsis due to DM infection of R foot with abscess + cellulitis - 11/02- vanco + pip-dejan, pip-dejan discontinued 11/05 - 11/04 R foot ulcer debridement; wound care - 11/05 PICC placed - per ID 6 wk of IV ABX. Due to DELVIS/CKD3, will change to daptomycin 8 mg/kg today 11/09, end date 12/14 - will need outpt f/u with Surgery and ID in 2 wk - seen by surgeon today: Small amount of necrotic skin debrided with scissors, 1 x 1 cm. Base with minimal granulation tissue. Wet-to-dry dressings stopped and dura fiber Ag applied followed by fluff gauze and Kerlix. DELVIS/CKD3 - monitor Cr periodically and f/u with Dr Smith from [facility] in 2 weeks DM2 with hyperglycemia - basal-bolus insulin HLD - statin HTN, uncontrolled - atenolol + amlodipine; increased dose of amlodipine 5->10 mg/d GERD - PPI mood disorder - continue fluoxetine+ mirtazapine VTE ppx - LMWH dispo - plan STR In my clinical judgment, the patient requires continued inpatient hospitalization for the following reasons: IV ABX + placement Total time managing care of this patient today: 35 minutes. Quality Stroke Does the patient have a stroke diagnosis?: No VTE Prior VTE?: No VTE Risk Level:: Medical - moderate - high VTE Device Contraindication: Treatment Not Indicated VTE Drug Contraindication: N/A - Med Ordered
[2023-11-10] MEDS: oxyCODONE HCl Immed Release 5 MG TABLET PO ×2 (14:52→19:57)
[2023-11-10] MEDS: Acetaminophen 325 MG TABLET 650 MG PO (14:52)
--- NOTE | 2023-11-10 15:37 | MHC.CM.PN ---
[facility], [facility] G[facility] TO [facility] REGARDING PT POSSIBLY NOT BEING SKILLED ENOUGH FOR REHAB. CM AWAITING DETERMINATION. PT AWARE AND IS AGREEABLE TO LEARN IV IF NEED BE. DAUGHTER MILDRED CALLED AND IS OPPOSED TO HIM GOING HOME HIS APT.IS TOO [place] DAUGHTER UNABLE TO OFFER ANY OTHER OPTIONS. CM WILL CONTINUE TO FOLLOW.
[2023-11-10 15:56] VITALS: BP 130/64; PULSE 50; RESP 18; TEMP 36.1; O2SAT 99
[2023-11-10 16:23] LABS: Glucose, Whole Blood 117 mg/dL (60-115)
[2023-11-10 19:27] VITALS: BP 160/78; PULSE 46; RESP 18; TEMP 36.1; O2SAT 98
[2023-11-10] MEDS: Mirtazapine 15 MG TABLET PO (19:57)
[2023-11-10 20:25] LABS: Glucose, Whole Blood 173 mg/dL (60-115)
[2023-11-11 03:12] VITALS: BP 152/74; PULSE 52; RESP 18; TEMP 36.2; O2SAT 96
[2023-11-11] MEDS: oxyCODONE HCl Immed Release 5 MG TABLET PO ×4 (05:08→19:20)
[2023-11-11 07:08] LABS: Anion Gap 11 (12-20); Blood Urea Nitrogen 16 mg/dL (9-16); Calcium 8.9 mg/dL (8.4-10.2); Carbon Dioxide 25 mmol/L (22-29); Chloride 107 mmol/L (96-108); Creatinine Clr Calc Pharmacy 76.1; Estimated Glomerular Filt Rate > 60; Glucose Random 108 mg/dL (60-115); Potassium 4.1 mmol/L (3.3-5.1); Sodium 139 mmol/L (135-145)
[2023-11-11 07:57] VITALS: BP 179/80; PULSE 49; RESP 16; TEMP 36.1; O2SAT 91
[2023-11-11 08:04] LABS: Glucose, Whole Blood 125 mg/dL (60-115)
[2023-11-11 09:22] VITALS: BP 179/80; PULSE 49; O2SAT 91
[2023-11-11 09:46] VITALS: BP 179/80
[2023-11-11] MEDS: Enoxaparin Sodium 40 MG/0.4 ML SYRINGE SUBCUT (09:46)
[2023-11-11] MEDS: amLODIPine Besylate 10 MG TABLET PO (09:46)
[2023-11-11] MEDS: Atorvastatin Calcium 40 MG TABLET PO (09:46)
[2023-11-11] MEDS: Sennosides 8.6 MG TABLET 17.2 MG PO (09:46)
[2023-11-11] MEDS: FLUoxetine HCl 20 MG CAPSULE 60 MG PO (09:47)
[2023-11-11] MEDS: Aspirin Enteric Coated 81 MG TABLET.DR PO (09:47)
[2023-11-11] MEDS: Omeprazole 40 MG CAPSULE.DR PO ×2 (09:47→19:20)
[2023-11-11] MEDS: Pyridoxine HCl (Vitamin B6) 50 MG TABLET PO (09:47)
[2023-11-11] MEDS: polyethylene glycoL 3350 17 GM POWD.PACK PO (09:48)
[2023-11-11] MEDS: Insulin Glargine,Hum.rec.anlog 100 UNIT/ML 10 ML VIAL 50 UNIT SUBCUT (09:49)
[2023-11-11 09:50] VITALS: PULSE 49
[2023-11-11] MEDS: 0.9 % Sodium Chloride Flush 10 ML SYRINGE 5 ML IVFLUSH ×2 (09:57→15:20)
[2023-11-11 11:14] LABS: Glucose, Whole Blood 261 mg/dL (60-115)
[2023-11-11] MEDS: Fluticasone Propionate Nasal 16 GM SPRAY 1 SPRAY NOSTRIL-B (11:40)
[2023-11-11] MEDS: Acetaminophen 325 MG TABLET 650 MG PO (11:41)
[2023-11-11] MEDS: Insulin Lispro 100 UNIT/ML 3 ML VIAL SUBCUT ×2 (12:04→16:51)
--- NOTE | 2023-11-11 14:11 | P.PNIM_ITS ---
Subjective Subjective Date of Service: 11/11/23 Interval History: foot pain improved no fever Review of Systems Review of Systems: Yes all other systems are reviewed and are negative Physical Exam 2 Vital Signs: Vital Signs: Last Vital Signs Temp 96.9 F 11/11/23 07:57 Pulse 49 L 11/11/23 09:50 Resp 16 11/11/23 07:57 BP 179/80 H 11/11/23 09:46 Pulse Ox 91 L 11/11/23 09:22 O2 Del Method Room Air 11/11/23 07:57 O2 Flow Rate 6 11/05/23 10:20 BMI result Body Mass Index 32.5 Gen: in no acute distress HEENT: sclera anicteric, moist mucus membranes Neck: supple Lungs: clear to auscultation bilaterally Heart: regular rate and rhythm, no murmurs Abd: soft, non-tender, non-distended Ext: no edema, RUE with PICC, R foot with dry dressing Skin: warm/well-perfused Neuro: alert and oriented x3, no focal findings Psych: appropriate affect Objective Data Active Medications Acetaminophen (Acetaminophen 325 Mg Tablet) 650 mg PO Q6H PRN PRN Reason: Pain, Mild (Pain Scale 1-3) Last Admin: 11/11/23 11:41 Dose: 650 mg Documented By: DOMENICO Albuterol Sulfate (Albuterol Sulfate 90 Mcg 8 Gm Inhaler) 2 puff INHALE RQ6H PRN PRN Reason: shortness of breath or wheezing Amlodipine Besylate (Amlodipine Besylate 10 Mg Tablet) 10 mg PO DAILY [facility]; Protocol Last Admin: 11/11/23 09:46 Dose: 10 mg Documented By: LINDA Aspirin (Aspirin Enteric Coated 81 Mg Tablet.) 81 mg PO DAILY [facility] Last Admin: 11/11/23 09:47 Dose: 81 mg Documented By: LINDA Atenolol (Atenolol 50 Mg Tablet) 50 mg PO DAILY [facility]; Protocol Last Admin: 11/11/23 09:50 Dose: Not Given Documented By: LINDA Non-Admin Reason: HR 49 Atorvastatin Calcium (Atorvastatin Calcium 40 Mg Tablet) 40 mg PO DAILY [facility] Last Admin: 11/11/23 09:46 Dose: 40 mg Documented By: LINDA Enoxaparin Sodium (Enoxaparin Sodium 40 Mg/0.4 Ml Syringe) 40 mg SUBCUT Q24H [facility] Last Admin: 11/11/23 09:46 Dose: 40 mg Documented By: LINDA Fluoxetine HCl (Fluoxetine Hcl 20 Mg Capsule) 60 mg PO DAILY [facility] Last Admin: 11/11/23 09:47 Dose: 60 mg Documented By: LINDA Fluticasone Propionate (Fluticasone Propionate Nasal 16 Gm [place]) 1 spray NOSTRIL-B DAILY [facility] Last Admin: 11/11/23 11:40 Dose: 1 spray Documented By: DOMENICO Glucose (Glucose Gel 15 Gm Gel..Gram.) 15 gm PO Q15M PRN; Protocol PRN Reason: per Hypoglycemia Standing Ord. Dextrose (D10) 250 mls @ 750 mls/hr IV Q15M PRN; Protocol PRN Reason: per Hypoglycemia Standing Ord. Daptomycin 893.6 mg/ Sodium (Chloride) 67.872 mls @ 100 mls/hr IV Q24H [facility] Last Infusion: 11/11/23 12:47 Dose: Infused Documented By: DOMENICO Insulin Glargine (Insulin Glargine,Hum.Rec.Anlog 100 Unit/Ml 10 Ml Vial) 50 unit SUBCUT DAILY [facility] Last Admin: 11/11/23 09:49 Dose: 50 unit Documented By: LINDA Insulin Human Lispro (Insulin Lispro 100 Unit/Ml 3 Ml Vial) 0 unit SUBCUT QIDACHS [facility]; Protocol Last Admin: 11/11/23 12:04 Dose: 6 unit Documented By: DOMENICO Melatonin (Melatonin 3 Mg Tablet) 6 mg PO BEDTIME PRN PRN Reason: Insomnia Mirtazapine (Mirtazapine 15 Mg Tablet) 15 mg PO BEDTIME [facility] Last Admin: 11/10/23 19:57 Dose: 15 mg Documented By: SARAHI Omeprazole (Omeprazole 40 Mg Capsule.) 40 mg PO BID [facility] Last Admin: 11/11/23 09:47 Dose: 40 mg Documented By: LINDA Ondansetron HCl (Ondansetron Hcl 4 Mg/2 Ml Vial) 4 mg IVPUSH Q8H PRN PRN Reason: Nausea and Vomiting Oxycodone HCl (Oxycodone Hcl Immed Release 5 Mg Tablet) 5 mg PO Q4H PRN PRN Reason: severe pain Last Admin: 11/11/23 13:58 Dose: 5 mg Documented By: DOMENICO Polyethylene Glycol (Polyethylene Glycol 3350 17 Gm Powd.Pack) 17 gm PO DAILY [facility] Last Admin: 11/11/23 09:48 Dose: 17 gm Documented By: LINDA Pyridoxine HCl (Pyridoxine Hcl (Vitamin B6) 50 Mg Tablet) 50 mg PO DAILY [facility] Last Admin: 11/11/23 09:47 Dose: 50 mg Documented By: LINDA Senna (Sennosides 8.6 Mg Tablet) 17.2 mg PO DAILY [facility] Last Admin: 11/11/23 09:46 Dose: 17.2 mg Documented By: LINDA Sodium Chloride (0.9 % Sodium Chloride Flush 3 Ml Syringe) 3 ml IVFLUSH QSHIFT [facility] Last Admin: 11/11/23 09:57 Dose: Not Given Documented By: LINDA Non-Admin Reason: Duplicate Order Sodium Chloride (0.9 % Sodium Chloride Flush 10 Ml Syringe) 5 ml IVFLUSH TID [facility] Last Admin: 11/11/23 09:57 Dose: 5 ml Documented By: LINDA Labs 11/05/23 06:03 11/11/23 06:09 Labs: Laboratory Results - last 24 hr 11/10/23 11/10/23 11/11/23 16:16 20:20 06:09 Hold Purple Top SEE NOTE Anion Gap 11 L Estim Creat Clear Calc 76.1 Estimated GFR > 60 POC Glucose 117 H 173 H Random Glucose 108 Calcium 8.9 11/11/23 11/11/23 08:00 11:04 Hold Purple Top Anion Gap Estim Creat Clear Calc Estimated GFR POC Glucose 125 H 261 H Random Glucose Calcium Assessment and Plan (1) Sepsis: Status: Acute (2) Cellulitis: Status: Acute (3) Diabetes mellitus with hyperglycemia, with long-term current use of insulin: Status: Acute Plan d8 68yo M with DM2 with neuropathy, HTN, HLD, GERD, CKD3, mood disorder, gout presenting with RLE swelling/redness admitted for sepsis due to DM foot infection sepsis due to DM infection of R foot with abscess + cellulitis - 11/02- vanco + pip-dejan, pip-dejan discontinued 11/05 - 11/04 R foot ulcer debridement - 11/05 PICC placed - per ID 6 wk of IV ABX. Due to DELVIS/CKD3, changed to daptomycin 8 mg/kg daily on 11/09, end date 12/14 - will need outpt f/u with Surgery and ID in 2 wk - seen by surgeon 11/09: Small amount of necrotic skin debrided with scissors, 1 x 1 cm. Base with minimal granulation tissue. Wet-to-dry dressings stopped and dura fiber Ag applied followed by fluff gauze and Kerlix. DELVIS/CKD3 - DELVIS resolved, SCr back at baseline. f/u with Dr Smith from [facility] in 4 weeks DM2 with hyperglycemia - basal-bolus insulin HLD - statin HTN, uncontrolled - atenolol + amlodipine; increased dose of amlodipine 5->10 mg/d GERD - PPI mood disorder - continue fluoxetine+ mirtazapine VTE ppx - LMWH dispo - plan STR for IV ABX + wound care In my clinical judgment, the patient requires continued inpatient hospitalization for the following reasons: placement Total time managing care of this patient today: 35 minutes. Quality Stroke Does the patient have a stroke diagnosis?: No VTE Prior VTE?: No VTE Risk Level:: Medical - moderate - high VTE Device Contraindication: Treatment Not Indicated VTE Drug Contraindication: N/A - Med Ordered
--- NOTE | 2023-11-11 14:34 | P.DS_ITS ---
DS: Providers Provider Date of Service: 11/11/23 Date of admission: 11/03/23 01:41 Date of discharge: 11/11/23 Primary care physician: Marcelo Lopez MD Consults: 11/03/23 09:58 Consult to Infectious Diseases Routine Consulting Provider: [facility] [facility] Reason for consultation: Suspected OM, Hx of OM same foot. 11/03/23 15:10 Consult to General Surgery Routine Consulting Provider: [facility] [place] General Surgeons Reason for consultation: 4.3 cm abscess at the plantar/medial aspect of the first MTP joint. DS: Diagnosis Discharge Diagnosis (1) Sepsis: Status: Acute (2) Cellulitis: Status: Acute (3) Diabetes mellitus with hyperglycemia, with long-term current use of insulin: Status: Acute (4) Foot abscess: Status: Acute (5) Acute kidney injury superimposed on CKD: Status: Acute (6) Diabetes mellitus with foot ulcer and gangrene: Status: Acute DS: Summary Hospital Course Hospital Course: From the history and physical by the admitting hospitalist, Jessee Nix MD, 11/03/23: This is a 68-year-old male with pertinent history of 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 Patient states he does not have much sensation in his feet due to peripheral neuropathy. He noticed that the base of his right foot was getting bigger. Also noticed redness which was progressively worsening at the base of right foot. Does not remember trauma to the foot. Endorses chills. No chest discomfort, palpitations, shortness of breath, abdominal pain, changes in urinary or bowel habits. The emergency department, patient was found to be septic and initiated on empiric IV antibiotics 68yo M with DM2 with neuropathy, HTN, HLD, GERD, CKD3, mood disorder, and gout presenting with RLE swelling/redness and admitted for sepsis due to DM foot infection. He was started on vancomycin and piperacillin-tazobactam IV. Blood cultures were negative Infectious Disease and General Surgery consulted. On 11/05/23, he underwent debridement of what were 2 foot ulcers with extensive necrosis and communication between the ulcers. Due to the depth of infection with gangrene extending to the surgical margins, prolonged IV therapy was recommended by ID. PICC line was placed and vancomycin was continued. He had some degree of DELVIS superimposed on CKD3. DELVIS resolved with stopping vancomycin and giving IV fluids. Antibiotic therapy was changed to daptomycin. He was discharged to a SNF to continue IV daptomycin and undergo daily wound care. He should have weekly CBC, BMP, and CPK checked while on daptomycin and rosuvastatin should be held while on it. PICC can be removed after the last day of therapy, which is 12/15/23. Time Attestation Discharge Coordination Time (in mins): 45 Quality: Safe Use of Opioids Does Pt have an Active Cancer Diagnosis on the Problem List?: No Quality: Stroke Does the patient have a stroke diagnosis?: No Physical Exam Vital Signs: Vital Signs: Last Vital Signs Temp 96.9 F 11/11/23 07:57 Pulse 49 L 11/11/23 09:50 Resp 16 11/11/23 07:57 BP 179/80 H 11/11/23 09:46 Pulse Ox 91 L 11/11/23 09:22 O2 Del Method Room Air 11/11/23 07:57 O2 Flow Rate 6 11/05/23 10:20 BMI result Body Mass Index 32.5 Gen: in no acute distress HEENT: sclera anicteric, moist mucus membranes Neck: supple Lungs: clear to auscultation bilaterally Heart: regular rate and rhythm, no murmurs Abd: soft, non-tender, non-distended Ext: no edema, RUE with PICC, R foot with dry dressing Skin: warm/well-perfused Neuro: alert and oriented x3, no focal findings Psych: appropriate affect DS: Data Data Completed and Pending Completed studies during hospitalization [Text1]: Laboratory Results WBC 7.4 X10*3/uL (4.8-10.8) 11/05/23 06:03 RBC 3.15 X10*6/uL (4.60-5.80) L 11/05/23 06:03 Hgb 9.3 g/dl (14.0-18.0) L 11/05/23 06:03 Hct 28.8 % (42.0-52.0) L 11/05/23 06:03 MCV 91.4 fL (80.0-98.0) 11/05/23 06:03 MCH 29.5 pg (27.0-33.0) 11/05/23 06:03 MCHC 32.3 g/dl (31.0-36.0) 11/05/23 06:03 RDW 13.2 % (11.0-16.0) 11/05/23 06:03 Plt Count 302 X10*3/uL (160-400) 11/05/23 06:03 MPV 11.0 fL (9.4-12.4) 11/05/23 06:03 Immature Gran % (Auto) 0.9 % (0.0-0.4) H 11/03/23 04:54 Neut % (Auto) 81.3 % (45-73) H 11/03/23 04:54 Lymph % (Auto) 9.0 % (20-40) L 11/03/23 04:54 Dare % (Auto) 8.3 % (2-11) 11/03/23 04:54 Eos % (Auto) 0.3 % (0-4) 11/03/23 04:54 Baso % (Auto) 0.2 % (0-2) 11/03/23 04:54 Lymph # (Auto) 1.2 X10*3/uL (1.2-4.9) 11/03/23 04:54 Dare # (Auto) 1.1 X10*3/uL (0.1-1.2) 11/03/23 04:54 Eos # (Auto) 0.0 X10*3/uL (0.0-0.4) 11/03/23 04:54 Baso # (Auto) 0.0 X10*3/uL (0.0-0.2) 11/03/23 04:54 Abs Immat Gran (auto) 0.13 X10*3/uL (0.00-0.03) H 11/03/23 04:54 Absolute Neuts (auto) 11.2 x10*3/uL (2.0-8.3) H 11/03/23 04:54 Absolute Nucleated RBC 0.000 X10*3/uL (0.0-0.012) 11/05/23 06:03 Nucleated RBC % (auto) 0.0 /100WBC (0.0-0.2) 11/05/23 06:03 ESR 105 MM/HR (0-15) H 11/09/23 05:25 Hold Purple Top SEE NOTE 11/11/23 06:09 Sodium 139 mmol/L (135-145) 11/11/23 06:09 Potassium 4.1 mmol/L (3.3-5.1) 11/11/23 06:09 Chloride 107 mmol/L (96-108) 11/11/23 06:09 Carbon Dioxide 25 mmol/L (22-29) 11/11/23 06:09 Anion Gap 11 (12-20) L 11/11/23 06:09 BUN 16 mg/dL (9-16) 11/11/23 06:09 Creatinine 1.20 mg/dL (0.5-1.4) 11/11/23 06:09 Estim Creat Clear Calc 76.1 11/11/23 06:09 Estimated GFR > 60 11/11/23 06:09 POC Glucose 261 mg/dL (60-115) H 11/11/23 11:04 Random Glucose 108 mg/dL (60-115) 11/11/23 06:09 Estimat Average Glucose 194 mg/dL 11/03/23 04:54 Hemoglobin A1c % 8.4 % (<6.0) H 11/03/23 04:54 Lactic Acid 2.0 mmol/L (0.5-2.0) 11/02/23 19:56 Calcium 8.9 mg/dL (8.4-10.2) 11/11/23 06:09 Total Bilirubin 1.8 mg/dL (0.0-1.0) H 11/02/23 19:56 Direct Bilirubin 0.7 mg/dL (0.0-0.5) H 11/02/23 19:56 AST 17 U/L (5-37) 11/02/23 19:56 ALT 15 U/L (0-40) 11/02/23 19:56 Alkaline Phosphatase 103 U/L (39-117) 11/02/23 19:56 Total Creatine Kinase 24 U/L (38-174) L 11/10/23 07:48 C-Reactive Protein 2.30 mg/dL (< or = 0.50) H 11/09/23 05:25 Total Protein 7.5 g/dL (6.5-8.0) 11/02/23 19:56 Albumin 4.0 g/dL (3.5-5.0) 11/02/23 19:56 Random Vancomycin 12.9 mcg/mL (15-20) L 11/09/23 19:08 Impressions Foot X-Ray 11/02/23 19:58 IMPRESSION: Marked soft tissue swelling centered at the first metatarsophalangeal joint with heterotopic bone formation. No definite bony destructive changes are seen. MRI would be the best modality to exclude osteomyelitis. Foot MRI 11/03/23 13:15 IMPRESSION: 1. A 4.3 cm abscess at the plantar/medial aspect of the first MTP joint. No osteomyelitis. 2. 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 Pathology 11/05/23 Soft tissue, right foot ulcer (debridement): Soft tissue with gangrenous necrosis extending to the margins. Discharge Plan Discharge Anticipated Discharge Date/Time: 11/11/23 14:26 Patient Disposition: er [facility] Discharge Diagnosis: sepsis due to diabetic foot abscess Referrals: Marcelo Lopez MD [Primary Care Provider] - 1 Week Tish Ferrara MD [Physician] - 2 Weeks Aravind Adame MD [Physician] - 2 Weeks Nico Smith MD [Physician] - 4 Weeks Discharge Medications: New oxycodone 5 mg Tablet 5 mg PO Q4H PRN (Reason: severe pain) Qty: 18 0RF Rx Instructions: Partial Fill upon patient request. daptomycin 500 mg Recon Soln 893.6 mg IV Q24H Qty: 34 0RF Continued (DME) blood pressure test kit-wrist Kit See Rx Instructions .Route Rx Instructions: As directed pyridoxine (vitamin B6) 50 mg tablet 50 mg PO DAILY 30 Days Qty: 30 5RF (DME) OneTouch Verio test strips Strip See Rx Instructions .Route Qty: 100 12RF Rx Instructions: As directed- in vitro 3 times a day cholecalciferol (vitamin D3) 250 mcg (10,000 unit) capsule 250 mcg PO 2XW 90 Days Qty: 26 1RF (DME) lancets [OneTouch Delica Lancets] 33 gauge misc See Rx Instructions .Route Qty: 100 12RF Rx Instructions: As directed amlodipine 5 mg tablet 5 mg PO DAILY 90 Days Qty: 90 1RF irbesartan 300 mg tablet 300 mg PO DAILY Qty: 90 1RF fluticasone propionate 50 mcg/actuation spray,suspension 1 spray intranasal DAILY Qty: 48 5RF mirtazapine 15 mg tablet 15 mg PO BEDTIME 90 Days Qty: 90 1RF omeprazole 40 mg capsule,delayed release(DR/EC) 40 mg PO BID Qty: 180 2RF albuterol sulfate [Ventolin HFA] 90 mcg/actuation HFA aerosol inhaler 2 puff inhalation Q6H PRN (Reason: shortness of breath or wheezing) 30 Days Qty: 8.5 0RF metformin 1,000 mg tablet 1,000 mg PO BID Qty: 60 3RF (DME) Dexcom G6 Sensor Device See Rx Instructions .Route Qty: 3 5RF Rx Instructions: As directed (DME) Dexcom G6 Oven Technician Misc See Rx Instructions .ROUTE .MEDSUPPLY Qty: 1 5RF Rx Instructions: As directed (DME) Dexcom G6 Transmitter Device See Rx Instructions .Route Qty: 1 0RF Rx Instructions: test blood sugars three times daily fluoxetine 20 mg capsule 60 mg PO DAILY 30 Days Qty: 90 3RF insulin lispro [Humalog KwikPen Insulin] 100 unit/mL insulin pen See Rx Instructions .ROUTE .COMPLEX Qty: 15 3RF Rx Instructions: Take 2 to 8 units SQ 4 times a day - with meals and at bedtime - PER SLIDING SCALE (see below for sliding scale details) Insulin as advised before meals 0-150: 0 unit 151-200: 2 units 201-250: 4 units 251-300: 6 units 301-350: 8 units >351 call insulin glargine [Lantus Solostar U-100 Insulin] 100 unit/mL (3 mL) insulin pen 70 unit subcut DAILY Qty: 15 3RF atenolol 50 mg tablet 50 mg PO DAILY Qty: 90 2RF sennosides [senna] 8.6 mg tablet 17.2 mg PO DAILY cyanocobalamin (vitamin B-12) 1,000 mcg tablet 1,000 mcg PO DAILY aspirin [Adult Low Dose Aspirin] 81 mg tablet,delayed release (DR/EC) 81 mg PO DAILY Held rosuvastatin 10 mg tablet 10 mg PO DAILY 90 Days Qty: 90 1RF Hold Instructions: Resume on 12/16/23. Discharge Orders: Discharge Order (Routine); Ordered 11/11/23 Ordered By: Geovanna Stone Diet: Diabetic diet Activity on Discharge: As tolerated Stand Alone Forms: Patient Portal Discharge page Print Language: Divehi Care Plan Goals: cure of infection Health Concerns: sepsis due to diabetic foot abscess Plan of Treatment: daptomycin 900 mg IV daily through PICC until 12/15/23 hold rosuvatatin while on daptomycin remove PICC after 12/15/23 weekly labs while on daptomycin: CBC, BMP, CPK follow up with [address] Ferrara from [facility] Infectious Disease and Dr Adame from [facility] General Surgery follow up wiht [address] Smith from [facility] [Nephrology] wound care daily: apply dura fiber Ag followed by fluff gauze and Kerlix Please follow up with your primary care doctor within 1 week of discharge from SNF. Return to the hospital if you experience recurrent or worsening symptoms. Assessment: See Discharge Summary.
--- NOTE | 2023-11-11 14:51 | MHC.CM.PN ---
Addendum entered by Liliana Silver 11/11/23 15:15: IMM DELIVERED Original Note: DP: PT HAS BEEN MEDICALLY CLEARED FOR DC TO STR AT [facility]. DID PEER TO PEER REVIEW WITH MD FROM [facility] AND STAY AT [facility] [[email or web address]] HAS BEEN APPROVED. AWAITING CONFIRMATION FROM [facility]. DAUGHTER MILDRED UPDATED ON PLAN. RN AWARE. BLS TRANSPORT BOOKED FOR 5:30 PM VIA [facility].
[2023-11-11 15:44] VITALS: BP 136/72; PULSE 50; RESP 16; TEMP 36.2; O2SAT 97
[2023-11-11 16:15] LABS: Glucose, Whole Blood 182 mg/dL (60-115)
--- NOTE | 2023-11-11 19:11 | PC.NURSE ---
Ambulance running late, paper prescription for Oxycodone given to the oncoming Nurse.
[2023-11-11] MEDS: Mirtazapine 15 MG TABLET PO (19:20)
--- NOTE | 2023-11-19 12:58 | P.CDIM_ITS ---
PROVIDER RESPONSE TEXT: To clarify, the appropriate diagnosis supported by the clinical indicators: Diabetic acidosis has been ruled out QUERY TEXT: PHYSICIAN'S DOCUMENTATION REQUEST Date of Query: 11/16/2023 12:35 PM EDT Patient Name: Johann Irwin Admit Date: 11/03/2023 Dear Geovanna Stone, A review of the medical record indicates additional documentation may be needed. Please review below and update the documentation accordingly. The purpose of this query is not to question medical judgment, but to ensure the accuracy of the cond itions reported for your patient. The diagnosis of Diabetic acidosis is documented in the record on 11/03/23 in the ER Physician note. T here is a lack of clinical documentation besides the ER note. The Discharge Summary does not list this diagnosis Please clarify the documentation of Diabetic acidosis: Diabetic acidosis remains a known or suspected condition for this patient Diabetic acidosis has been ruled out Other (explain) Clinically unable to determine (explain) Thank you, Lenore Marion RN Use of terms such as suspected, likely, concern for, or probable (associated with a specific diagnosi s that is being evaluated, monitored, or treated as if it exists) are acceptable and can be coded in the inpatient se tting, when documented at the time of discharge. Please use your independent medical judgment in providing your response. THIS QUERY IS PART OF THE PERMANENT MEDICAL RECORD
== END 2023-11-11 19:33 | disposition skilled nursing facility (03) | DRG 623 ==
LOC: HO.ED 11-03 01:42 → HO.EDOVER 11-03 01:54 → HO.S3 11-03 07:30
PROVIDERS: Hospitalist; Physician Assistant Medical; Student in an Organized Health Care Education/Training Program; Surgery; Admitting Provider Student in an Organized Health Care Education/Training Program; Emergency Provider Internal Medicine; PCP Internal Medicine; Visit Provider Family Medicine
PROC: 0JBQ0ZZ Excision of Right Foot Subcutaneous Tissue and Fascia, Open Approach (ICD-10-PCS; principal; 2023-11-05 09:30)
DX: E11.628 Type 2 diabetes mellitus with other skin complications (principal); E11.52 Type 2 diabetes mellitus with diabetic peripheral angiopathy with gangrene; L02.611 Cutaneous abscess of right foot; E78.2 Mixed hyperlipidemia; E11.65 Type 2 diabetes mellitus with hyperglycemia; F39 Unspecified mood [affective] disorder; L03.031 Cellulitis of right toe; E11.621 Type 2 diabetes mellitus with foot ulcer; L97.519 Non-pressure chronic ulcer of other part of right foot with unspecified severity; G47.33 Obstructive sleep apnea (adult) (pediatric); K21.9 Gastro-esophageal reflux disease without esophagitis; M10.9 Gout, unspecified; N18.30 Chronic kidney disease, stage 3 unspecified; E11.22 Type 2 diabetes mellitus with diabetic chronic kidney disease; Z79.4 Long term (current) use of insulin; Z79.51 Long term (current) use of inhaled steroids; Z79.82 Long term (current) use of aspirin; Z79.84 Long term (current) use of oral hypoglycemic drugs; Z79.899 Other long term (current) drug therapy
CPT/HCPCS: 36415; 36573; 73630; 73720; 80048; 80076; 80202; 82550; 82565; 82947; 83036; 83605; 85025; 85027; 85652; 86140; 87040; 87070; 87205; 88304; 88305; 97116; 97161; 99285; A9585; C1751; J0878; J1650; J2250; J2270; J2543; J2704; J2795; J3010; J3370; J3371

== ENCOUNTER → 2023-11-03 01:41 | Outpatient (BNV) | payer MEDICARE, SELFPAY | PROVIDERS: Admitting Provider Student in an Organized Health Care Education/Training Program; Emergency Provider Internal Medicine; PCP Internal Medicine; Visit Provider Student in an Organized Health Care Education/Training Program | DX: A41.9 Sepsis, unspecified organism (principal); E11.621 Type 2 diabetes mellitus with foot ulcer; L03.031 Cellulitis of right toe; Z79.4 Long term (current) use of insulin | CPT/HCPCS: 99222; 99232; 99233; 99239; 99499 ==

== ENCOUNTER → 2023-11-03 01:41 | Outpatient (BNV) | payer MEDICARE, SELFPAY | PROVIDERS: Admitting Provider Student in an Organized Health Care Education/Training Program; Emergency Provider Internal Medicine; PCP Internal Medicine; Visit Provider Surgery | DX: L02.611 Cutaneous abscess of right foot (principal); L03.031 Cellulitis of right toe | CPT/HCPCS: 11042; 99024; 99222 ==

== ENCOUNTER → 2023-11-03 01:41 | Outpatient (BNV) | payer MEDICARE, SELFPAY | PROVIDERS: Admitting Provider Student in an Organized Health Care Education/Training Program; Emergency Provider Internal Medicine; PCP Internal Medicine; Visit Provider Internal Medicine | DX: A41.9 Sepsis, unspecified organism (principal) | CPT/HCPCS: 99222 ==

== ENCOUNTER 2023-12-02 14:28 | Outpatient (AMB) | payer MEDICARE, SELFPAY ==
--- NOTE | 2023-12-02 14:29 | MHC.OFFVIS ---
Vital Signs 12/02/23 14:43 Weight 244 lb Pulse 54 Pulse Source Pulse Oximeter Temp 98.4 F Temp Source Oral Pulse Oximetry (%) 97 Oxygen Delivery Method Room Air Intake Visit Reasons: reff c abcess foot Allergies sertraline [SERTRALINE] Allergy (Severe, Verified 12/02/23 14:44) RASH, ABD PAIN DEHYDRATION Penicillins [PENICILLINS] Allergy (Intermediate, Verified 12/02/23 14:44) RASH HPI [place] [facility] [place]: Details: He has had septic with DM foot. He has right foot infection and negative culture. He has been on Daptomycin and is done on 12/14. 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 Type 2 diabetes mellitus with diabetic polyneuropathy Allergic rhinitis Surgical History Hx of foot surgery (11/05/23) History of esophagogastroduodenoscopy (EGD) Hx of colonoscopy History of umbilical hernia repair Family History Father Diabetes Melanoma Mother Diabetes Hypertension Cancer Sister Diabetes Social History Household Members: None Housing: Apartment Do you presently have visiting nurse or other home services: No Alcohol intake: former Patient Tobacco Use Status: Former Tobacco user e-Cigarette/Vaping Use: Never Used Second Hand Smoke Exposure: No service: No Current occupational status: employed Cognitive needs: No Hearing needs: No Vision needs: No Review of Systems Const All systems reviewed & are unremarkable except as noted in HPI and below Physical Exam Vital Signs: Last Vital Signs Temp 98.4 F 12/02/23 14:43 Pulse 54 12/02/23 14:43 Pulse Ox 97 06/19/24 14:43 Oxygen Delivery Method Room Air 12/02/23 14:43 Const General: cooperative Orientation/consciousness: patient oriented x3 HEENT Head: Yes normal to inspection Mouth: Normal oral and palatal mucosa present Eyes General: appearance normal, both eyes and all related structures Pupils: Equal, round and reactive pupils present Resp Effort & Inspection: normal respiratory effort Cardio Rate: regular rate Rhythm: regular rhythm GI Palpation (GI): Soft to palpation and nontender General: Yes no CVA tenderness Back/Spine/Pelvis Back: no CVA tenderness Skin General skin exam: no rashes or lesions noted Neuro General: patient oriented x3 Cranial nerves: Yes CN's II-XII intact bilaterally and Yes Equal, round and reactive pupils present Extrem General: Yes normal to inspection Psych Appearance: grossly normal Assessment & Plan Assessment & Plan (1) Diabetes mellitus with foot ulcer and gangrene: Code(s): E11.621 - Type 2 diabetes mellitus with foot ulcer; E11.52 - Type 2 diabetes mellitus with diabetic peripheral angiopathy with gangrene; L97.509 - Non-pressure chronic ulcer of other part of unspecified foot with unspecified severity Category: Medical Plan: Doing well Foot is looking better Would continue Daptomycin (changed from Vancomycin due to DELVIS) Stop antibiotics on 12/14. Orders: Orders IR cvc remove any age 0612/02/23 E11.621 - Type 2 diabetes mellitus with foot ulcer, E11.52 - Type 2 diabetes mellitus with diabetic peripheral angiopathy with gangrene, L97.509 - Non-pressure chronic ulcer of other part of unspecified foot with unspecified severity Coding Level of Care Code Est Pt Level 3 (38087) Diagnoses Diabetes mellitus with foot ulcer and gangrene E11.621; E11.52; L97.509
[2023-12-02 14:43] VITALS: PULSE 54; TEMP 36.9; O2SAT 97
== END 2023-12-02 15:43 | disposition home or self-care (01) ==
LOC: HO.HID 14:28
PROVIDERS: PCP Internal Medicine; Visit Provider Internal Medicine
DX: E11.621 Type 2 diabetes mellitus with foot ulcer (principal); E11.52 Type 2 diabetes mellitus with diabetic peripheral angiopathy with gangrene; L97.509 Non-pressure chronic ulcer of other part of unspecified foot with unspecified severity
CPT/HCPCS: 99213

== ENCOUNTER → 2023-12-02 14:28 | Outpatient (BNVA) | payer MEDICARE, SELFPAY | PROVIDERS: PCP Internal Medicine; Visit Provider Internal Medicine | DX: E11.621 Type 2 diabetes mellitus with foot ulcer (principal); L97.509 Non-pressure chronic ulcer of other part of unspecified foot with unspecified severity; E11.52 Type 2 diabetes mellitus with diabetic peripheral angiopathy with gangrene | CPT/HCPCS: 99212 ==

== ENCOUNTER → 2023-12-11 11:06 | Outpatient (BNVA) | payer MEDICARE, SELFPAY | PROVIDERS: PCP Internal Medicine; Visit Provider Surgery | DX: E11.621 Type 2 diabetes mellitus with foot ulcer (principal); L97.509 Non-pressure chronic ulcer of other part of unspecified foot with unspecified severity; L02.619 Cutaneous abscess of unspecified foot; E11.52 Type 2 diabetes mellitus with diabetic peripheral angiopathy with gangrene; E11.22 Type 2 diabetes mellitus with diabetic chronic kidney disease; N18.9 Chronic kidney disease, unspecified; E11.69 Type 2 diabetes mellitus with other specified complication; M86.9 Osteomyelitis, unspecified; N17.9 Acute kidney failure, unspecified | CPT/HCPCS: 99211 ==

== ENCOUNTER 2023-12-15 10:08 | Outpatient (REF) | payer MEDICARE, SELFPAY ==
--- NOTE | ~2023-12-15 | MR_ITS ---
EXAMINATION: MR FOOT WITHOUT AND WITH CONTRAST, RIGHT CLINICAL INFORMATION: Diabetes, foot ulcer. COMPARISON: MRI 11/03/2023. TECHNIQUE: MRI of the right foot was performed before and after the intravenous administration of 10 mL Gadavist on a high-field scanner. FINDINGS: There is a skin wound along the plantar/medial aspect of the 1st MTP joint. There is heterogeneous increased T2 signal in the underlying soft tissues, with enhancement. This involves a segment approximately 4.6 cm transverse. There are foci of low signal and nonenhancement suggestive of a combination of air and nonenhancing tissue. Findings are concerning for phlegmonous change, abscess, or a combination of these. 0.9 cm focus of low T1/T2 compatible with air in the plantar medial soft tissue in this region. There is a mild T2 signal in the hallux sesamoids, with intermediate T1 signal changes, with mild enhancement. These findings could reflect reactive edema or early osteomyelitis. Redemonstrated is severe 1st MTP arthritis, with dysmorphic appearance of the metatarsal head and neck, similar to previous, could in part be related to prior surgery. There is a mild increased T2 signal in the proximal aspect of the proximal phalanx and the distal 1st metatarsal, with mild enhancement. This could reflect reactive edema versus early osteomyelitis. Findings appear new as compared to previous. No significant 1st MTP joint effusion is seen at this stage. Multifocal arthritis in the tarsometatarsal joints. Mild peritendinitis/tenosynovitis of the FHL. Lisfranc ligament is intact. Visualized plantar aponeurosis appears intact. Dorsal soft tissue swelling and subcutaneous edema. Edema in the intrinsic muscles of foot probably related to degeneration. MR/MR foot RT wo/w con IMPRESSION: Skin wound along the plantar/medial aspect of the 1st MTP joint. Abnormal findings in the plantar soft tissues, concerning for phlegmon, abscess or a combination of these. This involves an area approximately 4.6 cm transverse. Mild edema signal and mild enhancement in the hallux sesamoids, the distal 1st metatarsal, proximal aspect of the 1st proximal phalanx. Findings are new as compared to previous. These findings could represent reactive edema or early osteomyelitis. FHL mild peritendinitis/tenosynovitis. Additional findings and details as above. The report will be called to the ordering clinician by a [facility] Controller.
[2023-12-15] MEDS: gadobutroL 10 ML VIAL IVPUSH (11:18)
== END 2023-12-15 10:09 | disposition home or self-care (01) ==
LOC: HO.MRI 10:08
PROVIDERS: PCP Internal Medicine; Visit Provider Surgery
DX: E11.621 Type 2 diabetes mellitus with foot ulcer (principal); E11.52 Type 2 diabetes mellitus with diabetic peripheral angiopathy with gangrene; L97.509 Non-pressure chronic ulcer of other part of unspecified foot with unspecified severity; N17.9 Acute kidney failure, unspecified; N18.9 Chronic kidney disease, unspecified; M86.9 Osteomyelitis, unspecified
CPT/HCPCS: 73720; A9585

== ENCOUNTER 2023-12-18 10:43 | Outpatient (AMB) | payer MEDICARE, SELFPAY ==
--- NOTE | 2023-12-18 10:46 | A.OFFVIS_ITS ---
Vital Signs 12/18/23 10:47 Weight 244 lb Intake Visit Reasons: s/p foot surgery Intake Note: This patient presents for a follow-up assessment status post debridement of right foot, diabetic foot ulcer great toe. Patient c/o; wound check. Surgery date: 11/05/2023 Emt Driver Required: No Accompanied by: Other Relationship Allergies sertraline [SERTRALINE] Allergy (Severe, Verified 12/18/23 10:47) RASH, ABD PAIN DEHYDRATION Penicillins [PENICILLINS] Allergy (Intermediate, Verified 12/18/23 10:47) RASH HPI Comments Details: Patient was recently discharged from rehab and completed his IV antibiotics. He was not prescribed any oral antibiotic after discharge. He has not taken his medications since discharge but now his daughter is helping him with the medication. He recently underwent MRI, and results were reviewed with the patient. Overall he is much improved. 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 Type 2 diabetes mellitus with diabetic polyneuropathy Allergic rhinitis Surgical History Hx of foot surgery (11/05/23) History of esophagogastroduodenoscopy (EGD) Hx of colonoscopy History of umbilical hernia repair Family History Father Diabetes Melanoma Mother Diabetes Hypertension Cancer Sister Diabetes Social History Household Members: None Housing: Apartment Do you presently have visiting nurse or other home services: No Alcohol intake: former Patient Tobacco Use Status: Former Tobacco user e-Cigarette/Vaping Use: Never Used Second Hand Smoke Exposure: No service: No Current occupational status: employed Cognitive needs: No Hearing needs: No Vision needs: No Physical Exam Const General: comfortable Nutritional Appearance: well nourished Orientation/consciousness: patient oriented x3 Limitations: ambulation with cane Resp Effort & Inspection: normal respiratory effort Neuro General: patient oriented x3 Extrem Other: Dressings changed to the right foot. Good granulation tissue and new epithelialization is noted in the ulcer of the anterior surface of the great toe. Plantar ulcer is open and draining. This was packed with a 2 x 2 gauze. Fluff gauze was then applied overall wounds. This was followed by Vee and a surgical boot. Assessment & Plan Assessment & Plan (1) Diabetes mellitus with foot ulcer and gangrene: Code(s): E11.621 - Type 2 diabetes mellitus with foot ulcer; E11.52 - Type 2 diabetes mellitus with diabetic peripheral angiopathy with gangrene; L97.509 - Non- pressure chronic ulcer of other part of unspecified foot with unspecified severity Category: Medical Plan Patient's right foot wound continues to improve with good granulation tissue in the anterior wound. The inferior wound is open and draining with no new necrotic tissue or callus. There is some pocketing which was packed with a 2 x 2 gauze. He should continue with the current dressing changes. I will start doxycycline by mouth as well. He will return in 1 week. Medications: New doxycycline hyclate 100 mg PO BID 60 tabs 0RF Coding Level of Care Code Global (46998) Diagnoses Diabetes mellitus with foot ulcer and gangrene E11.621; E11.52; L97.509
== END 2023-12-18 11:19 | disposition home or self-care (01) ==
PROVIDERS: PCP Internal Medicine; Visit Provider Surgery
DX: E11.621 Type 2 diabetes mellitus with foot ulcer (principal); E11.52 Type 2 diabetes mellitus with diabetic peripheral angiopathy with gangrene; L97.509 Non-pressure chronic ulcer of other part of unspecified foot with unspecified severity
CPT/HCPCS: 99213

== ENCOUNTER → 2023-12-18 10:43 | Outpatient (BNVA) | payer MEDICARE, SELFPAY | PROVIDERS: PCP Internal Medicine; Visit Provider Surgery | DX: E11.621 Type 2 diabetes mellitus with foot ulcer (principal); E11.52 Type 2 diabetes mellitus with diabetic peripheral angiopathy with gangrene; L97.519 Non-pressure chronic ulcer of other part of right foot with unspecified severity | CPT/HCPCS: 99212 ==

== ENCOUNTER 2023-12-25 08:14 | Outpatient (AMB) | payer MEDICARE, SELFPAY ==
--- NOTE | 2023-12-25 08:18 | A.OFFPC_ITS ---
Vital Signs 12/25/23 08:20 Height 6 ft 1 in Weight 222 lb BMI 29.3 BP 106/58 L Blood Pressure Location Lt brachial Position Sitting Pulse 77 Pulse Source Pulse Oximeter Pulse Oximetry (%) 96 Oxygen Delivery Method Room Air Intake Visit Reasons: [facility] discharge 7.3 Allergies sertraline [SERTRALINE] Allergy (Severe, Verified 12/25/23 08:22) RASH, ABD PAIN DEHYDRATION Penicillins [PENICILLINS] Allergy (Intermediate, Verified 12/25/23 08:22) RASH Tobacco use date assessed: 06/22/23 Fall risk assessment: 1 Fall in past year Last assessed Fall Risk: 12/25/23 Dental Screening Dental Screen Date: 06/22/23 HPI HPI Comments History of Present Illness Details 68 y/o male patient who presents to the clinic for SNF discharge follow up. He was admitted at [facility] for management of Sepsis RLE due to DM foot Infection. DOS: 12/15/23 and DOD: 12/24/23. He followed with Surgeons: 12/18/23 and he will f/u with ID on 01/01/24. Pt and family member had a few concerns today: - Insomnia: Remeron was discontinued due to weight gain. He was on Trazodone in the past, but made him Groggy and drowsy . He is currently using Melatonin with no much improvement. - Anxiety/Panic attacks: He does see [facility] Therapist, but not on any medications. His Daughter worried that he has been having trouble with feeling anxious. Denies SA or SI. No other concerns. He is doing well at home with Homecare nursing and no issues with medications. 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 Type 2 diabetes mellitus with diabetic polyneuropathy Allergic rhinitis Surgical History Hx of foot surgery (11/05/23) History of esophagogastroduodenoscopy (EGD) Hx of colonoscopy History of umbilical hernia repair Family History Father Diabetes Melanoma Mother Diabetes Hypertension Cancer Sister Diabetes Social History Household Members: None Housing: Apartment Do you presently have visiting nurse or other home services: No Alcohol intake: former Patient Tobacco Use Status: Former Tobacco user Tobacco use type: Cigarette e-Cigarette/Vaping Use: Never Used Second Hand Smoke Exposure: No service: No Current occupational status: employed Cognitive needs: No Hearing needs: No Vision needs: No Questionnaire PHQ-9 Over the last 2 weeks, how often have you been bothered by any of the following problems? 1. Little interest or pleasure in doing things: not at all 2. Feeling down, depressed, or hopeless: several days 3. Trouble falling or staying asleep, or sleeping too much: several days 4. Feeling tired or having little energy: not at all 5. Poor appetite or overeating: not at all 6. Feeling bad about yourself - or that you are a failure or have let yourself or your family down: not at all 7. Trouble concentrating on things, such as reading the newspaper or watching television: not at all 8. Moving or speaking so slowly that other people could have noticed. Or the opposite - being so fidgety or restless that you have been moving around a lot more than usual: not at all 9. Thoughts that you would be better off or of hurting yourself in some way: not at all Total score: 2 Depression Screening Interpretation: Positive Depression Screening Follow-up: Existing condition and In treatment Depression Screening Done: Yes 96558 - PHQ-9 Billing: Yes Source: Developed by Drs. Kirill Hanna, Jeimy Garcia, Bijan Milian and colleagues, with an educational rolanda from [employer]. Thrive Questionnaire Date Thrive assessed: 11/03/23 AUDIT C Alcohol Use Questionnaire (AUDIT-C) 1. How often do you have a drink containing alcohol?: Monthly or less 2. How many drinks containing alcohol do you have on a typical day when you are drinking?: 1 or 2 3. How often do you have six or more drinks on one occasion?: Never Total Score: 1 Score Reviewed/Action Taken: Yes NOHEMY-7 AMB Questionnaire NOHEMY-7 Date NOHEMY - 7 assessed: 06/22/23 Source: Developed by Drs. Kirill Hanna, Jeimy Garcia, Bijan Milian and colleagues, with an educational rolanda from [employer]. Review of Systems Const All systems reviewed & are unremarkable except as noted in HPI and below Physical exam (Primary Care) Vital Signs: Last Vital Signs Pulse 77 12/25/23 08:20 BP 106/58 L 12/25/23 08:20 Pulse Ox 96 12/25/23 08:20 Oxygen Delivery Method Room Air 12/25/23 08:20 BMI result Body Mass Index 29.3 Tobacco/Smoking Status: Tobacco use Status Tobacco use date assessed 06/22/23 12/25/23 08:33 Patient Tobacco Use Status Former Tobacco user 12/25/23 08:33 Tobacco use type Cigarette 12/25/23 08:33 e-Cigarette/Vaping Use Never Used 12/25/23 08:33 PHQ-9: PHQ-9 Score PHQ-9: Total score 2 12/25/23 09:06 Depression Screening Interpretation: Positive Depression Screening Follow-up: Existing condition and In treatment Thrive Assessment: Date of Thrive Assessment Date Thrive assessed 11/03/23 12/25/23 08:33 Const General: comfortable and no acute distress Nutritional Appearance: overweight Orientation/consciousness: patient oriented x3 Resp Effort & Inspection: normal respiratory effort and able to speak in complete sentences Auscultation: clear to auscultation bilaterally, no crackles, no rales, no rhonchi and no wheezes Cardio Rate: regular rate Rhythm: regular rhythm Neuro General: patient oriented x3, gait normal and moves all extremities Extrem Right lower extremity: lower leg (Wrapped up with Desmond Bandage - visible drainage from the dressing. ) and foot (Wrapped up, wearing Ortho Boot) Left lower extremity: normal to inspection Psych Speech and movement: Normal speech and movement present Affect: normal affect Attitude: cooperative Vital Signs: Last Vital Signs Pulse 77 12/25/23 08:20 BP 106/58 L 12/25/23 08:20 Pulse Ox 96 12/25/23 08:20 Oxygen Delivery Method Room Air 12/25/23 08:20 BMI result Body Mass Index 29.3 Const General: comfortable and no acute distress Nutritional Appearance: overweight Orientation/consciousness: patient oriented x3 Resp Effort & Inspection: normal respiratory effort and able to speak in complete sentences Auscultation: clear to auscultation bilaterally, no crackles, no rales, no rhonchi and no wheezes Cardio Rate: regular rate Rhythm: regular rhythm Neuro General: patient oriented x3, gait normal and moves all extremities Extrem Other: Right foot with dressing, discharge visible from wound. Ortho Boot right foot. Right lower extremity: lower leg (Wrapped up with Desmond Bandage - visible drainage from the dressing. ) and foot (Wrapped up, wearing Ortho Boot) Left lower extremity: normal to inspection Psych Speech and movement: Normal speech and movement present Affect: normal affect Attitude: cooperative Assessment and Plan Assessment & Plan (1) Insomnia: Code(s): G47.00 - Insomnia, unspecified Qualifiers: Insomnia type: primary Qualified Code(s): F51.01 - Primary insomnia Plan: Pt has Trazodone at home 50 mg, Agreed to cut in 1/2 (for 25 mg) and take before bedtime. Advised not to take medicine late at night, to prevent waking up groggy. Advised to discuss with PCP on Insomnia Tx if Trazodone still not effective. Meanwhile advised to practice good sleep Hygiene. (2) Anxiety: Code(s): F41.9 - Anxiety disorder, unspecified Plan: He katerina receive Therapy weekly. Advised to establish care with Psych at the same facility for medication management. He is currently taking Wellbutrin. (3) Non-pressure chronic ulcer of other part of right foot with unspecified severity: Code(s): L97.519 - Non-pressure chronic ulcer of other part of right foot with unspecified severity Plan: Maintain a good control of DM and A1C Continue f/u with ID and complete Abx regiment He has Home Care Nursing services for wound care Coding Level of Care Code Est Pt Level 4 (52106) Diagnoses Primary insomnia F51.01 Insomnia type: primary Anxiety F41.9 Non-pressure chronic ulcer of other part of right foot with unspecified severity L97.519 Comment Spent 20 minutes reviewing hospital notes and labs.
[2023-12-25 08:20] VITALS: BP 106/58; PULSE 77; O2SAT 96; BMI 29.3
== END 2023-12-25 08:52 | disposition home or self-care (01) ==
PROVIDERS: PCP Internal Medicine; Visit Provider Nurse Practitioner Family
DX: F51.01 Primary insomnia (principal); F41.9 Anxiety disorder, unspecified; L97.519 Non-pressure chronic ulcer of other part of right foot with unspecified severity
CPT/HCPCS: 99214

== ENCOUNTER 2023-12-29 14:17 | Outpatient (AMB) | payer MEDICARE, SELFPAY ==
--- NOTE | 2023-12-29 14:39 | MHC.OFFVIS ---
Vital Signs 12/29/23 14:51 Height 6 ft 1 in Weight 228 lb BMI 30.1 BP 111/56 L Blood Pressure Location Lt brachial Position Sitting Pulse 54 Intake Visit Reasons: 1wk follow up s/p foot surgery Intake Note: Patient is seen in office for one week follow up visit, post debridement of right foot, diabetic foot ulcer great toe. Pt c/o: antbx ? Sleeve Fixer Required: No Accompanied by: Family/Other Allergies sertraline [SERTRALINE] Allergy (Severe, Verified 12/29/23 14:44) RASH, ABD PAIN DEHYDRATION Penicillins [PENICILLINS] Allergy (Intermediate, Verified 12/29/23 14:44) RASH Medication List - Last Reconciled 12/29/23 by Aravind Adame MD albuterol sulfate 90 mcg/actuation (Ventolin HFA) 2 puffs inhalation Q6H PRN 30 days amlodipine 5 mg PO DAILY 90 days aspirin (Adult Low Dose Aspirin) 81 mg PO DAILY atenolol 50 mg PO DAILY blood pressure test kit-wrist As directed blood sugar diagnostic ([employer] Verio test strips) As directed- in vitro 3 times a day blood-glucose meter,continuous ([employer] G6 Passenger Train Braker) As directed blood-glucose sensor ([employer] G6 Sensor device) As directed blood-glucose transmitter (Dexcom G6 Transmitter device) test blood sugars three times daily bupropion HCl XL 150 mg PO DAILY cholecalciferol (vitamin D3) 250 mcg PO 2XW 90 days cyanocobalamin (vitamin B-12) 1,000 mcg PO DAILY doxycycline hyclate 100 mg PO BID fluoxetine 60 mg (3 x 20 mg) PO DAILY 30 days fluticasone propionate 50 mcg/actuation 1 spray intranasal DAILY gabapentin 100 mg PO DAILY insulin lispro (Humalog KwikPen (U-100) Insulin) Take 2 to 8 units SQ 4 times a day - with meals and at bedtime - PER SLIDING SCALE (see below for sliding scale details) Insulin as advised before meals 0-150: 0 unit 151-200: 2 units 201-250: 4 units 251-300: 6 units 301-350: 8 units >351 call irbesartan 300 mg PO DAILY lancets (CO Everywhereuch Delica Lancets) As directed Lantus Solostar U-100 Insulin (insulin glargine) 70 units (0.7 mL) subcut DAILY NS melatonin 3 mg PO BEDTIME PRN omeprazole 40 mg PO BID oxycodone 5 mg PO Q4H PRN pyridoxine (vitamin B6) 50 mg PO DAILY 30 days rosuvastatin 10 mg PO DAILY 90 days sennosides (senna) 17.2 mg PO DAILY [shower chair As directed] HPI Comments Details: 68-year-old male patient with history of diabetes mellitus returning for wound check following debridement of an ulcer of the right great toe/metatarsal. He has VNA changing the dressings 3 times weekly with silver alginate and medical honey. He reports a significant pain from the foot with some redness. There has been a significant amount of discharge noted on the dressing. He denies fever or chills. He has been taking the doxycycline as prescribed. 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 Type 2 diabetes mellitus with diabetic polyneuropathy Allergic rhinitis Surgical History Hx of foot surgery (11/05/23) History of esophagogastroduodenoscopy (EGD) Hx of colonoscopy History of umbilical hernia repair Family History Father Diabetes Melanoma Mother Diabetes Hypertension Cancer Sister Diabetes Social History Household Members: None Housing: Apartment Do you presently have visiting nurse or other home services: No Alcohol intake: former Patient Tobacco Use Status: Former Tobacco user Tobacco use type: Cigarette e-Cigarette/Vaping Use: Never Used Second Hand Smoke Exposure: No service: No Current occupational status: employed Cognitive needs: No Hearing needs: No Vision needs: No Physical Exam Vital Signs: Last Vital Signs Pulse 54 12/29/23 14:51 BP 111/56 L 12/29/23 14:51 BMI result Body Mass Index 30.1 Const General: comfortable Nutritional Appearance: well nourished Orientation/consciousness: patient oriented x3 Limitations: ambulation with cane Resp Effort & Inspection: normal respiratory effort Neuro General: patient oriented x3 Extrem Other: Dressings changed to the right foot. Good granulation tissue and new epithelialization is noted in the ulcer of the anterior surface of the great toe. Plantar ulcer is open and draining. There is tunneling several cm circumferentially. This was packed with silver alginate followed by Fluff gauze was then applied overall wounds. This was followed by Kerlix and a surgical boot. Assessment & Plan Assessment & Plan (1) Diabetes mellitus with foot ulcer and gangrene: Code(s): E11.621 - Type 2 diabetes mellitus with foot ulcer; E11.52 - Type 2 diabetes mellitus with diabetic peripheral angiopathy with gangrene; L97.509 - Non-pressure chronic ulcer of other part of unspecified foot with unspecified severity Category: Medical Plan 68-year-old male patient with diabetes mellitus and a diabetic associated foot ulcer right foot. I recommended evaluation by wound care and a referral has been sent. He has also requested additional pain medication. He should continue the antibiotics as prescribed. He will return in 1 month for follow-up examination. Orders: Referrals Wound Care Referral E11.52 - Type 2 diabetes mellitus with diabetic peripheral angiopathy with gangrene, E11.621 - Type 2 diabetes mellitus with foot ulcer, L97.509 - Non-pressure chronic ulcer of other part of unspecified foot with unspecified severity Medications: Refilled oxycodone Partial Fill upon patient request. 5 mg PO Q4H PRN 18 tabs 0RF severe pain Coding Level of Care Code Est Pt Level 3 (07849) Diagnoses Diabetes mellitus with foot ulcer and gangrene E11.621; E11.52; L97.509
[2023-12-29 14:51] VITALS: BP 111/56; PULSE 54; BMI 30.1
== END 2023-12-29 14:59 | disposition home or self-care (01) ==
PROVIDERS: PCP Internal Medicine; Visit Provider Surgery
DX: E11.621 Type 2 diabetes mellitus with foot ulcer (principal); E11.52 Type 2 diabetes mellitus with diabetic peripheral angiopathy with gangrene; L97.509 Non-pressure chronic ulcer of other part of unspecified foot with unspecified severity
CPT/HCPCS: 99213

== ENCOUNTER → 2023-12-29 14:17 | Outpatient (BNVA) | payer MEDICARE, SELFPAY | PROVIDERS: PCP Internal Medicine; Visit Provider Surgery | DX: E11.621 Type 2 diabetes mellitus with foot ulcer (principal); E11.52 Type 2 diabetes mellitus with diabetic peripheral angiopathy with gangrene; L97.519 Non-pressure chronic ulcer of other part of right foot with unspecified severity | CPT/HCPCS: 99212 ==

== ENCOUNTER 2024-01-01 14:08 | Outpatient (AMB) | payer MEDICARE, SELFPAY ==
[2024-01-01 14:09] VITALS: PULSE 47; TEMP 36.4; O2SAT 97; BMI 29.9
--- NOTE | 2024-01-01 14:09 | A.OFFVIS_ITS ---
Vital Signs 3 01/01/24 14:09 Height 6 ft 1 in Weight 227 lb BMI 29.9 Pulse 47 L Pulse Source Pulse Oximeter Temp 97.6 F Temp Source Oral Pulse Oximetry (%) 97 Oxygen Delivery Method Room Air Intake Visit Reasons: f/u 1.month, abcess foot Allergies sertraline [SERTRALINE] Allergy (Severe, Verified 01/01/24 14:24) RASH, ABD PAIN DEHYDRATION Penicillins [PENICILLINS] Allergy (Intermediate, Verified 01/01/24 14:24) RASH HPI HPI f/u 1.month, abcess foot: Details: He still has issue with drainage [facility] Medical History Type 2 diabetes mellitus with stage 3b chronic kidney disease, with long-term current use of insulin Mixed hyperlipidemia Obstructive sleep apnea Memory impairment Environmental allergies Chronic kidney disease (CKD), stage III (moderate) Prostate cancer screening H/O hyperkalemia Recurrent cough Obesity (BMI 30-39.9) Depression Anxiety Insomnia Primary osteoarthritis, left shoulder Crohn's disease GERD (gastroesophageal reflux disease) Pure hypercholesterolemia Benign essential hypertension Microalbuminuria 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 Type 2 diabetes mellitus with diabetic polyneuropathy Allergic rhinitis Surgical History Hx of foot surgery (11/05/23) History of esophagogastroduodenoscopy (EGD) Hx of colonoscopy History of umbilical hernia repair Family History Father Diabetes Melanoma Mother Diabetes Hypertension Cancer Sister Diabetes Social History Household Members: None Housing: Apartment Do you presently have visiting nurse or other home services: No Alcohol intake: former Patient Tobacco Use Status: Former Tobacco user Tobacco use type: Cigarette e-Cigarette/Vaping Use: Never Used Second Hand Smoke Exposure: No service: No Current occupational status: employed Cognitive needs: No Hearing needs: No Vision needs: No Physical Exam Vital Signs: Last Vital Signs Temp 97.6 F 01/01/24 14:09 Pulse 47 L 01/01/24 14:09 Pulse Ox 97 01/01/24 14:09 Oxygen Delivery Method Room Air 01/01/24 14:09 BMI result Body Mass Index 29.9 Const Other: General: cooperative Orientation/consciousness: patient oriented x3 HEENT Head: Yes normal to inspection Face and sinus: Yes normal facial exam Mouth: Normal oral and palatal mucosa present Teeth and gingiva: dentition normal Eyes General: appearance normal, both eyes and all related structures Pupils: Equal, round and reactive pupils present Resp Effort & Inspection: normal respiratory effort Cardio Rate: regular rate Rhythm: regular rhythm GI Palpation (GI): Soft to palpation and nontender General: Yes no CVA tenderness Back/Spine/Pelvis Back: no CVA tenderness Skin General skin exam: no rashes or lesions noted Neuro General: patient oriented x3 Cranial nerves: Yes CN's II-XII intact bilaterally and Yes Equal, round and reactive pupils present Extrem General: Yes normal to inspection Psych Appearance: grossly normal Assessment & Plan Assessment & Plan (1) Diabetes mellitus with foot ulcer and gangrene: Code(s): E11.621 - Type 2 diabetes mellitus with foot ulcer; E11.52 - Type 2 diabetes mellitus with diabetic peripheral angiopathy with gangrene; L97.509 - Non- pressure chronic ulcer of other part of unspecified foot with unspecified severity Category: Medical Plan He says foot stil is dong poorly and s Patient Instructions: ghanshyam Coding Level of Care Code Est Pt Level 3 (78999) Diagnoses Diabetes mellitus with foot ulcer and gangrene E11.621; E11.52; L97.509
== END 2024-01-01 14:41 | disposition home or self-care (01) ==
LOC: HO.HID 14:08
PROVIDERS: PCP Internal Medicine; Visit Provider Internal Medicine
DX: E11.621 Type 2 diabetes mellitus with foot ulcer (principal); E11.52 Type 2 diabetes mellitus with diabetic peripheral angiopathy with gangrene; L97.509 Non-pressure chronic ulcer of other part of unspecified foot with unspecified severity
CPT/HCPCS: 99213

== ENCOUNTER → 2024-01-01 14:08 | Outpatient (BNVA) | payer MEDICARE, SELFPAY | PROVIDERS: PCP Internal Medicine; Visit Provider Internal Medicine | DX: E11.621 Type 2 diabetes mellitus with foot ulcer (principal); E11.52 Type 2 diabetes mellitus with diabetic peripheral angiopathy with gangrene; L97.509 Non-pressure chronic ulcer of other part of unspecified foot with unspecified severity | CPT/HCPCS: 99212 ==

== ENCOUNTER → 2024-01-05 23:59 | Outpatient (BNV) | payer MEDICARE, SELFPAY | PROVIDERS: PCP Internal Medicine; Visit Provider Internal Medicine | DX: E11.621 Type 2 diabetes mellitus with foot ulcer (principal); I12.9 Hypertensive chronic kidney disease with stage 1 through stage 4 chronic kidney disease, or unspecified chronic kidney disease; E11.22 Type 2 diabetes mellitus with diabetic chronic kidney disease; N18.30 Chronic kidney disease, stage 3 unspecified | CPT/HCPCS: G0180 ==

== ENCOUNTER 2024-01-15 12:45 | Outpatient (RCR) | payer MEDICARE, SELFPAY ==
--- NOTE | ~2024-01-15 | XR_ITS ---
EXAMINATION: XR CHEST 2 VIEWS CLINICAL INFORMATION: Nonhealing wound; pre-hyperbaric oxygen therapy. COMPARISON: Chest radiographs dated 12/05/2022. TECHNIQUE: Frontal and lateral views of the chest were obtained. FINDINGS: The heart, great vessels, pulmonary vasculature and mediastinum are normal. The lungs show no focal infiltrate, effusion or pneumothorax. There is no acute osseous abnormality. XR/XR chest 2V IMPRESSION: No active cardiopulmonary disease.
[2024-01-18 10:24] LABS: MANUAL DIFF FLAG NO
--- NOTE | 2024-01-18 10:24 | ECG_ITS ---
Test Reason : pre hbot Blood Pressure : / mmHG Vent. Rate : 071 BPM Atrial Rate : 071 BPM P-R Int : 172 ms QRS Dur : 090 ms QT Int : 398 ms P-R-T Axes : 014 036 050 degrees QTc Int : 432 ms Sinus rhythm with occasional Premature ventricular complexes Nonspecific ST abnormality Abnormal ECG When compared with ECG of 19-JUN-2022 08:30, Premature ventricular complexes are now Present Vent. rate has increased BY 25 BPM Referred By: Carolyne Claros Electronically Signed By:ASIA MOORE MD
[2024-01-18 10:54] LABS: Basophils Absolute Auto 0.1 X10*3/uL (0.0-0.2); Basophils Percent Auto 1.1 % (0-2); Eosinophils Absolute Auto 0.1 X10*3/uL (0.0-0.4); Eosinophils Percent Auto 1.2 % (0-4); Hematocrit 33.9 % (42.0-52.0); Hemoglobin 11.6 g/dl (14.0-18.0); Imm Gran Abs Auto 0.05 X10*3/uL (0.00-0.03); Imm Gran Pct Auto 0.5 % (0.0-0.4); Lymphocytes Absolute Auto 2.1 X10*3/uL (1.2-4.9); Lymphocytes Percent Auto 22.5 % (20-40); Mean Corpuscular HGB Conc 34.2 g/dl (31.0-36.0); Mean Corpuscular Hemoglobin 28.3 pg (27.0-33.0); Mean Corpuscular Volume 82.7 fL (80.0-98.0); Mean Platelet Volume 10.8 fL (9.4-12.4); Monocytes Absolute Auto 0.7 X10*3/uL (0.1-1.2); Monocytes Percent Auto 7.6 % (2-11); Neutrophils Absolute Auto 6.4 x10*3/uL (2.0-8.3); Neutrophils Percent Auto 67.1 % (45-73); Platelet Count 519 X10*3/uL (160-400); Red Cell Distribution Width 13.5 % (11.0-16.0); White Blood Count 9.5 X10*3/uL (4.8-10.8)
[2024-01-18 11:01] LABS: Estimated Average Glucose 163 mg/dL; Hemoglobin A1C 167.1108 umol/L; Hemoglobin A1c % 7.3 % (<6.0); Total Hemoglobin (HGBA1C) 2981.1099 umol/L
[2024-01-18 11:19] LABS: Anion Gap 13 (12-20); Blood Urea Nitrogen 15 mg/dL (9-16); C Reactive Protein 2.02 mg/dL (< or = 0.50); Calcium 9.9 mg/dL (8.4-10.2); Carbon Dioxide 23 mmol/L (22-29); Chloride 97 mmol/L (96-108); Estimated Glomerular Filt Rate 50; Glucose Random 192 mg/dL (60-115); Potassium 4.3 mmol/L (3.3-5.1); Sodium 129 mmol/L (135-145)
[2024-01-18 12:28] LABS: Erythrocyte Sedimentation Rate 64 MM/HR (0-15)
== END 2024-05-06 13:41 | disposition home or self-care (01) ==
LOC: HO.WCC 12:45
PROVIDERS: PCP Internal Medicine; Visit Provider Physician Assistant
DX: E11.621 Type 2 diabetes mellitus with foot ulcer (principal); L97.515 Non-pressure chronic ulcer of other part of right foot with muscle involvement without evidence of necrosis; E11.22 Type 2 diabetes mellitus with diabetic chronic kidney disease; I12.9 Hypertensive chronic kidney disease with stage 1 through stage 4 chronic kidney disease, or unspecified chronic kidney disease; N18.30 Chronic kidney disease, stage 3 unspecified; E11.69 Type 2 diabetes mellitus with other specified complication; M86.471 Chronic osteomyelitis with draining sinus, right ankle and foot; E11.40 Type 2 diabetes mellitus with diabetic neuropathy, unspecified; H72.92 Unspecified perforation of tympanic membrane, left ear
CPT/HCPCS: 11042; 11043; 36415; 71046; 80048; 83036; 84134; 85025; 85652; 86140; 93005; 99212; 99213

== ENCOUNTER → 2024-01-18 10:24 | Outpatient (BNV) | payer MEDICARE, SELFPAY | PROVIDERS: PCP Internal Medicine; Visit Provider Internal Medicine Cardiovascular Disease | DX: R94.31 Abnormal electrocardiogram [ECG] [EKG] (principal) | CPT/HCPCS: 93010 ==

== ENCOUNTER 2024-02-02 10:20 | Outpatient (AMB) | payer MEDICARE, SELFPAY ==
--- NOTE | 2024-02-02 10:23 | A.OFFVIS_ITS ---
Vital Signs 02/02/24 10:31 Height 6 ft 1 in Weight 224 lb BMI 29.6 BP 111/55 L Blood Pressure Location Lt brachial Position Sitting Pulse 67 Intake Visit Reasons: 1mth follow up s/p foot surgery Intake Note: Patient is seen in office for one month follow up visit, post debridement of right foot, diabetic foot ulcer great toe. Pt c/o: admits to swelling and redness and some what hot to the touch, wound is open Dr Morales: 01/01/24 VNA: 01/07/24 Wound Care: 01/14/24 Driver License Technician Required: No Accompanied by: Self / Same As Patient Allergies sertraline [SERTRALINE] Allergy (Severe, Verified 02/02/24 10:31) RASH, ABD PAIN DEHYDRATION Penicillins [PENICILLINS] Allergy (Intermediate, Verified 02/02/24 10:31) RASH Medication List - Last Reconciled 02/02/24 by Aravind Adame MD albuterol sulfate 90 mcg/actuation (Ventolin HFA) 2 puffs inhalation Q6H PRN 30 days amlodipine 5 mg PO DAILY 90 days aspirin (Adult Low Dose Aspirin) 81 mg PO DAILY atenolol 50 mg PO DAILY blood sugar diagnostic (Kedzoh Verio test strips) As directed- in vitro 3 times a day blood-glucose meter,continuous (Dexcom G6 Maintenance Representative) As directed blood-glucose sensor (Dexcom G6 Sensor device) As directed blood-glucose transmitter (Dexcom G6 Transmitter device) test blood sugars three times daily bupropion HCl XL 150 mg PO DAILY cholecalciferol (vitamin D3) 250 mcg PO 2XW 90 days cyanocobalamin (vitamin B-12) 1,000 mcg PO DAILY doxycycline hyclate 100 mg PO BID fluoxetine 60 mg (3 x 20 mg) PO DAILY 30 days fluticasone propionate 50 mcg/actuation 1 spray intranasal DAILY gabapentin 100 mg PO DAILY insulin lispro (Humalog KwikPen (U-100) Insulin) Take 2 to 8 units SQ 4 times a day - with meals and at bedtime - PER SLIDING SCALE (see below for sliding scale details) Insulin as advised before meals 0-150: 0 unit 151-200: 2 units 201- 250: 4 units 251-300: 6 units 301-350: 8 units >351 call irbesartan 300 mg PO DAILY lancets (OneTouch Delica Lancets) As directed Lantus Solostar U-100 Insulin (insulin glargine) 70 units (0.7 mL) subcut DAILY NS melatonin 3 mg PO BEDTIME PRN omeprazole 40 mg PO BID oxycodone 5 mg PO Q4H PRN pyridoxine (vitamin B6) 50 mg PO DAILY 30 days rosuvastatin 10 mg PO DAILY 90 days sennosides (senna) 17.2 mg PO DAILY [shower chair As directed] HPI Comments Details: 68-year-old male patient with history of diabetes mellitus returning for wound check following debridement of an ulcer of the right great toe/metatarsal. He has VNA changing the dressings 3 times weekly with silver alginate and medical honey. He reports a significant pain from the foot with some redness. [facility] He is having trouble with his offloading boot which is making ambulation difficult. His sister is a physical therapist and will be providing him with a new boot. He denies fever or chills. His daughter is concerned that he is having difficulty taking care of himself and feels he may benefit from fdc placement. 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 Type 2 diabetes mellitus with diabetic polyneuropathy Allergic rhinitis Surgical History Hx of foot surgery (11/05/23) History of esophagogastroduodenoscopy (EGD) Hx of colonoscopy History of umbilical hernia repair Family History Father Diabetes Melanoma Mother Diabetes Hypertension Cancer Sister Diabetes Social History Household Members: None Housing: Apartment Do you presently have visiting nurse or other home services: No Alcohol intake: former Patient Tobacco Use Status: Former Tobacco user Tobacco use type: Cigarette e-Cigarette/Vaping Use: Never Used Second Hand Smoke Exposure: No service: No Current occupational status: employed Cognitive needs: No Hearing needs: No Vision needs: No Review of Systems Const All systems reviewed & are unremarkable except as noted in HPI and below Physical Exam Const General: comfortable Nutritional Appearance: well nourished Orientation/consciousness: patient oriented x3 Limitations: ambulation with cane Resp Effort & Inspection: normal respiratory effort Neuro General: patient oriented x3 Extrem Other: Dressings changed to the right foot. Ulceration on the upper surface of the great toe is now nearly completely healed. He still has the plantar ulcer over the 1st metatarsal head. A small callus was noted on the great toe and excised using a scissors. The callus measured 1 cm in diameter included only the epidermis. No ulceration was noted in this location. Silver alginate was applied to the open wound followed by fluff gauze and Paul. Assessment & Plan Assessment & Plan (1) Diabetes mellitus with foot ulcer and gangrene: Code(s): E11.621 - Type 2 diabetes mellitus with foot ulcer; E11.52 - Type 2 diabetes mellitus with diabetic peripheral angiopathy with gangrene; L97.509 - Non- pressure chronic ulcer of other part of unspecified foot with unspecified severity Category: Medical Plan Overall grade healing of the ventral wound but continued open wound on the plantar surface. He will continue with wound care follow-up and return approximately 1 month, sooner p.r.n.. Coding Level of Care Code Est Pt Level 3 (81358) Diagnoses Diabetes mellitus with foot ulcer and gangrene E11.621; E11.52; L97.509
[2024-02-02 10:31] VITALS: BP 111/55; PULSE 67; BMI 29.6
== END 2024-02-02 10:48 | disposition home or self-care (01) ==
PROVIDERS: PCP Internal Medicine; Visit Provider Surgery
DX: E11.621 Type 2 diabetes mellitus with foot ulcer (principal); E11.52 Type 2 diabetes mellitus with diabetic peripheral angiopathy with gangrene; L97.511 Non-pressure chronic ulcer of other part of right foot limited to breakdown of skin
CPT/HCPCS: 99213

== ENCOUNTER → 2024-02-02 10:20 | Outpatient (BNVA) | payer MEDICARE, SELFPAY | PROVIDERS: PCP Internal Medicine; Visit Provider Surgery | DX: E11.621 Type 2 diabetes mellitus with foot ulcer (principal); L97.519 Non-pressure chronic ulcer of other part of right foot with unspecified severity; E11.52 Type 2 diabetes mellitus with diabetic peripheral angiopathy with gangrene; L84 Corns and callosities | CPT/HCPCS: 99212 ==

== ENCOUNTER 2024-02-17 13:03 | Outpatient (AMB) | payer MEDICARE, SELFPAY ==
[2024-02-17 13:09] VITALS: BP 168/92; PULSE 53; O2SAT 98; BMI 28.9
--- NOTE | 2024-02-17 13:09 | A.OFFPC_ITS ---
Vital Signs 02/17/24 13:09 Height 6 ft 1 in Weight 219 lb 6 oz BMI 28.9 BP 168/92 H Blood Pressure Location Lt brachial Position Sitting Pulse 53 Pulse Source Pulse Oximeter Pulse Oximetry (%) 98 Oxygen Delivery Method Room Air Intake Visit Reasons: DM, CKD, hyperlipidemia, HTN - see comment Fur Glazer Required: No Accompanied by: Friend Allergies sertraline [SERTRALINE] Allergy (Severe, Verified 02/17/24 14:01) RASH, ABD PAIN DEHYDRATION Penicillins [PENICILLINS] Allergy (Intermediate, Verified 02/17/24 14:01) RASH Medication List - Last Reconciled 02/17/24 by Marcelo Lopez MD albuterol sulfate 90 mcg/actuation (Ventolin HFA) 2 puffs inhalation Q6H PRN 30 days amlodipine 5 mg PO DAILY 90 days aspirin (Adult Low Dose Aspirin) 81 mg PO DAILY blood sugar diagnostic ([employer] Speech Verio test strips) As directed- in vitro 3 times a day blood-glucose meter,continuous ([employer] Network G6 [place] [employer] [place] Specialist) As directed blood-glucose sensor (Radial Network G6 Sensor device) As directed blood-glucose transmitter ([employer] Network G6 Transmitter device) test blood sugars three times daily bupropion HCl SR 200 mg PO QAM bupropion HCl XL 150 mg PO DAILY buspirone 5 mg PO BID cholecalciferol (vitamin D3) 250 mcg PO 2XW 90 days cyanocobalamin (vitamin B-12) 1,000 mcg PO DAILY fluoxetine 60 mg (3 x 20 mg) PO DAILY 30 days fluticasone propionate 50 mcg/actuation 1 spray intranasal DAILY gabapentin 100 mg PO DAILY insulin lispro (Humalog KwikPen (U-100) Insulin) Take 2 to 8 units SQ 4 times a day - with meals and at bedtime - PER SLIDING SCALE (see below for sliding scale details) Insulin as advised before meals 0-150: 0 unit 151-200: 2 units 201- 250: 4 units 251-300: 6 units 301-350: 8 units >351 call irbesartan 300 mg PO DAILY lancets ([employer] Speech Delica Lancets) As directed Lantus Solostar U-100 Insulin (insulin glargine) 70 units (0.7 mL) subcut DAILY NS melatonin 3 mg PO BEDTIME PRN metformin 1,000 mg PO BID mirtazapine 15 mg PO BEDTIME omeprazole 40 mg PO BID oxycodone 5 mg PO Q4-6H PRN pyridoxine (vitamin B6) 50 mg PO DAILY 30 days rosuvastatin 10 mg PO DAILY 90 days sennosides (senna) 17.2 mg PO DAILY [shower chair As directed] Tobacco use date assessed: 02/17/24 Fall risk assessment: 2 + Falls in past year Last assessed Fall Risk: 02/17/24 Dental Screening Dental Screen Date: 02/17/24 Did you have a dental visit in the last 12 months?: Yes Did you have a dental problem in the last 6 months where you did not have access to dental care?: No Was dental information given to patient?: Patient has dentist HPI DM, CKD, hyperlipidemia, HTN - see comment HPI Details Patient comes in today for his follow up visit States that he is now scheduled for amputation of his right big toe at [facility] next month on 03/21/24 He is currently still on oral Abx (Doxycycline) for his osteomyelitis (finished IV Abx back in early December 2023) and continues to follow up with the wound clinic regularly for wound management and debridement He is currently requesting for a refill on his Oxycodone for pain - states that he takes this only as needed and mostly just once a day to help him get some relief from the pain and allow him to sleep at night Is hoping that he will not need to continue on this once his toe infection is permanently addressed He denies any fever, headaches or dizziness Denies any chest pains, no increased SOB No nausea/vomiting, no abdominal pain No change in bowel habits noted He had some labs done with the wound clinic last month and has not gone for any other labs since He would also like to request for Rx for a Bathtub transfer bench extension legs to help address his current transfer bench issues - sttaes that this keeps falling off his bathtub when he tries to use it due to improper fit [facility] Medical History (Updated 02/22/24 @ 04:06 by Marcelo Lopez MD) Overweight (BMI 25.0-29.9) Type 2 diabetes mellitus with stage 3b chronic kidney disease, with long-term current use of insulin Mixed hyperlipidemia Obstructive sleep apnea Memory impairment Environmental allergies Chronic kidney disease (CKD), stage III (moderate) Prostate cancer screening H/O hyperkalemia Recurrent cough Obesity (BMI 30-39.9) Depression Anxiety Insomnia Primary osteoarthritis, left shoulder Crohn's disease GERD (gastroesophageal reflux disease) Pure hypercholesterolemia Benign essential hypertension Microalbuminuria nursing home (current) use of insulin Type 2 diabetes mellitus with diabetic polyneuropathy Allergic rhinitis Surgical History Hx of foot surgery (11/05/23) History of esophagogastroduodenoscopy (EGD) Hx of colonoscopy History of umbilical hernia repair Family History Father Diabetes Melanoma Mother Diabetes Hypertension Cancer Sister Diabetes Social History Household Members: None Housing: Apartment Do you presently have visiting nurse or other home services: No Alcohol intake: former Patient Tobacco Use Status: Former Tobacco user Tobacco use type: Cigarette e-Cigarette/Vaping Use: Never Used Second Hand Smoke Exposure: No service: No Current occupational status: employed Cognitive needs: No Hearing needs: No Vision needs: No Questionnaire PHQ-9 Over the last 2 weeks, how often have you been bothered by any of the following problems? 1. Little interest or pleasure in doing things: not at all 2. Feeling down, depressed, or hopeless: several days 3. Trouble falling or staying asleep, or sleeping too much: several days 4. Feeling tired or having little energy: not at all 5. Poor appetite or overeating: not at all 6. Feeling bad about yourself - or that you are a failure or have let yourself or your family down: not at all 7. Trouble concentrating on things, such as reading the newspaper or watching television: not at all 8. Moving or speaking so slowly that other people could have noticed. Or the opposite - being so fidgety or restless that you have been moving around a lot more than usual: not at all 9. Thoughts that you would be better off or of hurting yourself in some way: not at all Total score: 2 Depression Screening Interpretation: Positive Depression Screening Follow-up: Existing condition and In treatment Depression Screening Done: Yes 93835 - PHQ-9 Billing: Yes Source: Developed by Jeimy Barragan.W. Jose, Bijan Milian and colleagues, with an educational rolanda from [employer]. Thrive Questionnaire Date Thrive assessed: 02/17/24 I am a: Patient What is your living situation today?: I have a steady place to live Within the past 12 months, did the food you bought not last and you didn't have the money to get more?: Never true Within the past 12 months, did you worry whether your food would run out before you got money to buy more?: Never true Do you have trouble paying for medicines?: No Do you have trouble getting transportation to medical appointments?: No Do you have trouble paying your heating and electricity bill?: No Do you have trouble taking care of your child, family member or friend?: No Do you have trouble with day-to-day activities such as bathing, preparing meals, shopping, managing finances, etc.?: No Are you currently unemployed and looking for a job?: No Are you interested in more education?: No Please select the resources that you would like help with: None Currently or been in a relationship where the following occur: No concerns reported THRIVE Score: 0 AUDIT C Alcohol Use Questionnaire (AUDIT-C) 1. How often do you have a drink containing alcohol?: Monthly or less 2. How many drinks containing alcohol do you have on a typical day when you are drinking?: 1 or 2 3. How often do you have six or more drinks on one occasion?: Never Total Score: 1 Score Reviewed/Action Taken: Yes NOHEMY-7 AMB Questionnaire NOHEMY-7 Date NOHEMY - 7 assessed: 02/17/24 Feeling nervous, anxious, or on edge: 0 = Not at all Not being able to stop or control worryin = Not at all Worrying too much about different things: 0 = Not at all Trouble relaxin = Not at all Being so restless that it is hard to sit still: 0 = Not at all Becoming easily annoyed or irritable: 0 = Not at all Feeling afraid as if something awful might happen: 0 = Not at all Total NOHEMY-7 score (0-4 normal; 5-9 mild; 10-14 moderate; 15-21 severe): 0 Source: Developed by Drs. Kirill Hanna, Jeimy Garcia, Bijan Milian and colleagues, with an educational rolanda from [employer]. Review of Systems Const Denies chills, Denies fatigue, Denies fever(s) and Denies headache(s) ENT Denies dysphagia, Denies dizziness, Denies otalgia, Denies headache(s), Denies neck pain, Denies odynophagia and Denies sore throat Card Denies chest pain, Denies irregular heart rhythm, Denies palpitations and Denies dyspnea Resp Denies chest congestion, Denies cough and Denies dyspnea GI Denies abdominal pain, Denies constipation, Denies dysphagia, Denies heartburn, Denies diarrhea, Denies nausea, Denies odynophagia and Denies vomiting Denies difficulty urinating, Denies dysuria and Denies urinary frequency Musc Denies back pain, Denies arthralgias and Denies neck pain Skin/Breast Details: (+) chronic, open wound on the left big toe Denies rash Neuro Denies dizziness, Denies headache(s) and Denies paresthesias Endo Denies fatigue and Denies palpitations Physical exam (Primary Care) Vital Signs: Last Vital Signs Pulse 53 02/17/24 13:09 BP 168/92 H 02/17/24 13:09 Pulse Ox 98 02/17/24 13:09 Oxygen Delivery Method Room Air 02/17/24 13:09 BMI result Body Mass Index 28.9 Tobacco/Smoking Status: Tobacco use Status Tobacco use date assessed 02/17/24 02/17/24 13:12 Patient Tobacco Use Status Former Tobacco user 02/17/24 13:12 Tobacco use type Cigarette 02/17/24 13:12 e-Cigarette/Vaping Use Never Used 02/17/24 13:12 PHQ-9: PHQ-9 Score PHQ-9: Total score 2 02/17/24 13:52 Depression Screening Interpretation: Positive Depression Screening Follow-up: Existing condition and In treatment Thrive Assessment: Date of Thrive Assessment Date Thrive assessed 02/17/24 02/17/24 13:12 Currently or been in a relationship where the following occur: No concerns reported Const General: no acute distress and alert HENMT Ears: TM's normal bilaterally and EAC's normal Throat: Yes posterior oropharynx normal and Yes tonsils normal (no TP congestion) Neck Neck: Yes no lymphadenopathy and Yes supple Thyroid: Thyroid normal Resp Auscultation: clear to auscultation bilaterally, no rales and no wheezes Cardio Rate: regular rate Rhythm: regular rhythm Heart sounds: no murmurs GI Palpation (GI): Soft to palpation and nontender Auscultation: normal bowel sounds General: Yes no CVA tenderness Back/Spine/Pelvis Back: no CVA tenderness Thoracic/Lumbar Spine: lumbar spinal tenderness (mild) Skin Other: (+) chronic wound on the left big toe - toe is currently covered up in bandages Rashes: no rashes Extrem General: Yes no clubbing, cyanosis or edema Results Reviewed Results Reviewed: Laboratory Tests 01/18/24 10:23 WBC 9.5 Hgb 11.6 L D Hct 33.9 L Plt Count 519 H D Sodium 129 L Potassium 4.3 Creatinine 1.40 Estimated GFR 50 Random Glucose 192 H Hemoglobin A1c % 7.3 H Calcium 9.9 D C-Reactive Protein 2.02 H Assessment and Plan Assessment & Plan (1) Osteomyelitis of great toe of right foot: Code(s): M86.9 - Osteomyelitis, unspecified Plan: S/P IV Daptomycin in early December 2023 and is currently on chronic Abx Tx with oral Doxycyline He is now scheduled to have his right big toe amputated at [facility] on 03/21/24 Continue Oxycodone 5 mg Q 4 to 6 hours PRN for severe pain - Rx refilled per request Follow up with the Wound Clinic and with Dr. Ferrara as scheduled (2) Type 2 diabetes mellitus with stage 3b chronic kidney disease, with long- term current use of insulin: Code(s): E11.22 - Type 2 diabetes mellitus with diabetic chronic kidney disease; N18.32 - Chronic kidney disease, stage 3b; Z79.4 - nursing home (current) use of insulin Plan: His HgbA1c was at 7.3% when checked last month (his in-office HgbA1c was at 9.6% a few months ago) - goal is at least <7.0% Reinforced diabetic diet Continue Lantus Solostar 70 units Q HS, Humalog Kwikpen 2 to 8 units SQ 4 times a day (with meals and at bedtime) per sliding scale and Metformin 1000 mg BID We have also started him on Trulicity in the past but he could not afford the co-pay for his Rx He is hoping to now be able to proceed with his cataract surgery since his diabetes is much better controlled but he has to deal with his toe infection and upcoming toe amputation first and will then check back with ophthalmology regarding his cataract surgery We have referred him to [facility] Endocrinology in the past but patient was reportedly never contacted for an appointment (3) Mixed hyperlipidemia: Code(s): E78.2 - Mixed hyperlipidemia Plan: Results of his labs done last month reviewed and discussed with patient but advised that these did not include his fasting lipids and he has not had his cholesterol rechecked since last year Reinforced low cholesterol diet Continue Rosuvastatin 10 mg QD (Rx was held when he was on Daptomycin for his osteomyelitis a couple of months ago); he had some unrecalled problems with Atorvastatin in the past but is tolerating Rosuvastatin with no issues Will recheck his labs and fasting lipids in 4 months for follow up (4) Benign essential hypertension: Code(s): I10 - Essential (primary) hypertension Plan: Reinforced low sodium diet - goal is systolic BP of at least 120 to 130 mm or less Continue Irbesartan 300 mg QD and Amlodipine 5 mg QD Used to also take HCTZ 12.5 mg QD in the past but this was discontinued at some point, likely when he presented to the hospital with DELVIS a few months ago He is advised to monitor his blood pressure regularly (5) Obstructive sleep apnea: Code(s): G47.33 - Obstructive sleep apnea (adult) (pediatric) Plan: He was diagnosed with HERSON last year and is now on CPAP therapy when he sleeps at night Follow up with Sleep Medicine as scheduled (6) Crohn's disease: Code(s): K50.90 - Crohn's disease, unspecified, without complications Qualifiers: Gastrointestinal tract location: unspecified location Digestive disease complication type: unspecified complication Qualified Code(s): K50.919 - Crohn's disease, unspecified, with unspecified complications Plan: Currently stable with no recent flare ups He was on Lialda 1.2 mg 2 tablets daily in the past but he stopped taking it a while back as he could not afford the cost of the Rx Follow up with GI (Dr. Rush) as scheduled (7) Constipation: Code(s): K59.00 - Constipation, unspecified Qualifiers: Constipation type: unspecified constipation type Qualified Code(s): K59.00 - Constipation, unspecified Plan: Reinforced increased oral fluids and dietary fiber Continue Senna 8.6 mg 2 tablets Q HS PRN (8) Insomnia: Code(s): G47.00 - Insomnia, unspecified Qualifiers: Insomnia type: primary Qualified Code(s): F51.01 - Primary insomnia Plan: Sleep hygiene reinforced He is on Mirtazapine, which helps with his sleep at night He could not tolerate Trazodone in the past - states that he felt like a zombie the next day He has also tried 1/2 tablet of OTC Melatonin 10 mg - states that it also knocks him out but not as much as Trazodone did Advised that he can continue Melatonin if it helps and there should be no concerning long-term side effects from it, including habit-forming potential (9) Anxiety: Code(s): F41.9 - Anxiety disorder, unspecified Plan: Continue Lorazepam 0.5 mg QD PRN (10) Depression: Code(s): F32.9 - Major depressive disorder, single episode, unspecified Qualifiers: Depression Type: major depressive disorder Major depression recurrence: recurrent Active/Remission status: currently active Major depression episode severity: unspecified Qualified Code(s): F33.9 - Major depressive disorder, recurrent, unspecified Plan: Continue Fluoxetine 60 mg QD and Mirtazapine 15 mg Q HS Follow up with psychiatry as scheduled (11) Overweight (BMI 25.0-29.9): Code(s): E66.3 - Overweight Plan: Reinforced diet; exercise and weight loss are unrealistic at this time given patient's osteomyelitis and other physical issues Plan Follow up in 4 months Orders: Orders Vitamin D 25-OH Total 06/15/24 E55.9 - Vitamin D deficiency, unspecified TSH reflex Free T4 06/15/24 E78.00 - Pure hypercholesterolemia, unspecified Medications: New [BATHTUB TRANSFER BENCH EXTENSION LEGS] As directed 2 ea 0RF E11.42 - Type 2 diabetes mellitus with diabetic polyneuropathy, G62.9 - Polyneuropathy, unspecified, M54.5 - Low back pain, Z79.4 - nursing home (current) use of insulin Changed From oxycodone Partial Fill upon patient request. 5 mg PO Q4H PRN 18 tabs 0RF severe pain To oxycodone Take as needed only for severe pain 5 mg PO Q4-6H PRN 20 tabs 0RF severe pain Coding Level of Care Code Est Pt Level 4 (27074) Complex EM visit Add On G2211 Diagnoses Osteomyelitis of great toe of right foot M86.9 Type 2 diabetes mellitus with stage 3b chronic kidney disease, with long-term current use of insulin E11.22; N18.32; Z79.4 Mixed hyperlipidemia E78.2 Benign essential hypertension I10 Obstructive sleep apnea G47.33 Crohn's disease with complication, unspecified gastrointestinal tract location K50.919 Gastrointestinal tract location: unspecified location Digestive disease complication type: unspecified complication Constipation, unspecified constipation type K59.00 Constipation type: unspecified constipation type Primary insomnia F51.01 Insomnia type: primary Anxiety F41.9 Episode of recurrent major depressive disorder, unspecified depression episode severity F33.9 Depression Type: major depressive disorder Major depression recurrence: recurrent Active/Remission status: currently active Major depression episode severity: unspecified Overweight (BMI 25.0-29.9) E66.3
== END 2024-02-17 14:27 | disposition home or self-care (01) ==
PROVIDERS: PCP Internal Medicine; Visit Provider Internal Medicine
DX: M86.671 Other chronic osteomyelitis, right ankle and foot (principal); E11.22 Type 2 diabetes mellitus with diabetic chronic kidney disease; N18.32 Chronic kidney disease, stage 3b; Z79.4 Long term (current) use of insulin; E78.2 Mixed hyperlipidemia; I10 Essential (primary) hypertension; G47.33 Obstructive sleep apnea (adult) (pediatric); K59.00 Constipation, unspecified; F51.01 Primary insomnia; F41.9 Anxiety disorder, unspecified
CPT/HCPCS: 99214; G2211

== ENCOUNTER 2024-04-19 13:08 | Outpatient (AMB) | payer MEDICARE, SELFPAY ==
[2024-04-19 13:16] VITALS: BP 154/70; PULSE 78; O2SAT 98; BMI 29.7
--- NOTE | 2024-04-19 13:16 | MHC.PC.OV ---
Vital Signs 04/19/24 13:16 Height 6 ft 1 in Weight 225 lb BMI 29.7 BP 154/70 H Blood Pressure Location Lt brachial Position Sitting Pulse 78 Pulse Source Pulse Oximeter Pulse Oximetry (%) 98 Oxygen Delivery Method Room Air Intake Visit Reasons: [facility] 04/14 Intake Note: Patient is here for hospital discharge follow up. Patient was discharged from [facility] on 04/14/24 Allergies sertraline [SERTRALINE] Allergy (Severe, Verified 04/19/24 13:25) RASH, ABD PAIN DEHYDRATION Penicillins [PENICILLINS] Allergy (Intermediate, Verified 04/19/24 13:25) RASH Tobacco use date assessed: 02/17/24 Fall risk assessment: No Falls in past year Last assessed Fall Risk: 04/19/24 Dental Screening Dental Screen Date: 02/17/24 HPI HPI Comments History of Present Illness Details 68 y/o male patient who presents to the clinic for SNF discharge f/u. He was admitted on 03/25/24 at [facility] after he had surgery on his right foot - had right great Toe Amputated. He was discharged from Rehab 04/14/24. He follows with wound care for dressing changes. His Wound care Nurse cancelled the appointment for today - P asking to have dress change today. Pt has an upcoming surgery scheduled for 05/19 - Cataract, and he will be coming in tomorrow for pre-op clearance with PCP. Pt asking to have A1C checked today. [facility] Medical History (Updated 02/22/24 @ 04:28 by Marcelo Lopez MD) Overweight (BMI 25.0-29.9) Type 2 diabetes mellitus with stage 3b chronic kidney disease, with long-term current use of insulin Mixed hyperlipidemia Obstructive sleep apnea Memory impairment Environmental allergies Chronic kidney disease (CKD), stage III (moderate) Prostate cancer screening H/O hyperkalemia Recurrent cough Obesity (BMI 30-39.9) Depression Anxiety Insomnia Primary osteoarthritis, left shoulder Crohn's disease GERD (gastroesophageal reflux disease) Pure hypercholesterolemia Benign essential hypertension Microalbuminuria residential (current) use of insulin Type 2 diabetes mellitus with diabetic polyneuropathy Allergic rhinitis Surgical History Hx of foot surgery (11/05/23) History of esophagogastroduodenoscopy (EGD) Hx of colonoscopy History of umbilical hernia repair Family History Father Diabetes Melanoma Mother Diabetes Hypertension Cancer Sister Diabetes Social History Household Members: None Housing: Apartment Do you presently have visiting nurse or other home services: No Alcohol intake: former Patient Tobacco Use Status: Former Tobacco user Tobacco use type: Cigarette e-Cigarette/Vaping Use: Never Used Second Hand Smoke Exposure: No service: No Current occupational status: employed Cognitive needs: No Hearing needs: No Vision needs: No Questionnaire Thrive Questionnaire Date Thrive assessed: 02/17/24 AUDIT C Alcohol Use Questionnaire (AUDIT-C) 1. How often do you have a drink containing alcohol?: Monthly or less 2. How many drinks containing alcohol do you have on a typical day when you are drinking?: 1 or 2 3. How often do you have six or more drinks on one occasion?: Never Total Score: 1 Score Reviewed/Action Taken: Yes NOHEMY-7 AMB Questionnaire NOHEMY-7 Date NOHEMY - 7 assessed: 02/17/24 Source: Developed by Drs. Kirill Hanna, Jeimy Garcia, Bijan Milian and colleagues, with an educational rolanda from [employer]. Review of Systems Const All systems reviewed & are unremarkable except as noted in HPI and below Physical exam (Primary Care) Vital Signs: Last Vital Signs Pulse 78 04/19/24 13:16 BP 154/70 H 04/19/24 13:16 Pulse Ox 98 04/19/24 13:16 Oxygen Delivery Method Room Air 04/19/24 13:16 BMI result Body Mass Index 29.7 Tobacco/Smoking Status: Tobacco use Status Tobacco use date assessed 02/17/24 04/19/24 13:17 Patient Tobacco Use Status Former Tobacco user 04/19/24 13:17 Tobacco use type Cigarette 04/19/24 13:17 e-Cigarette/Vaping Use Never Used 04/19/24 13:17 Thrive Assessment: Date of Thrive Assessment Date Thrive assessed 02/17/24 04/19/24 13:17 Const General: cooperative and no acute distress Orientation/consciousness: patient oriented x3 HENMT Head: Yes normocephalic Resp Effort & Inspection: normal respiratory effort Auscultation: clear to auscultation bilaterally Cardio Heart sounds: S1 normal heart sound present and S2 normal heart sound present Skin Wounds: amputation site (Right foot, surgical wound healing well, wrapped. Foot on Ortho Boot) Neuro General: patient oriented x3, gait normal and moves all extremities Extrem Right lower extremity: foot (right great toe surgically missing. ) Details: edema Location: of the dorsal foot; no tenderness Psych Speech and movement: Normal speech and movement present Results AMB Hemoglobin A1c AMB Hemoglobin A1c 7.5 % Last Edit by JASE Rojas on 04/19/24 14:07 Coding Level of Care Code Est Pt Level 4 (19827) Diagnoses Osteomyelitis of great toe of right foot M86.9 Time Spent (min) 20 Assessment & Plan Assessment & Plan (1) Osteomyelitis of great toe of right foot: Code(s): M86.9 - Osteomyelitis, unspecified Category: Medical Plan: Changed dressing today Wound healing well. Mild swelling distal foot. Pt wears compression stockings.
== END 2024-04-19 14:08 | disposition home or self-care (01) ==
LOC: HO.HMCH 13:08
PROVIDERS: PCP Internal Medicine; Visit Provider Nurse Practitioner Family
DX: Z13.9 Encounter for screening, unspecified (principal); M86.9 Osteomyelitis, unspecified

== ENCOUNTER → 2024-04-19 13:08 | Outpatient (BNVA) | payer MEDICARE, SELFPAY | PROVIDERS: PCP Internal Medicine; Visit Provider Nurse Practitioner Family | DX: M86.9 Osteomyelitis, unspecified (principal); E11.9 Type 2 diabetes mellitus without complications | CPT/HCPCS: 83036; 99212 ==

== ENCOUNTER 2024-04-20 13:38 | Outpatient (AMB) | payer MEDICARE, SELFPAY ==
[2024-04-20 13:39] VITALS: BP 144/76; PULSE 60; O2SAT 97; BMI 28.9
--- NOTE | 2024-04-20 13:39 | MHC.PC.OV ---
Vital Signs 04/20/24 13:39 Height 6 ft 1 in Weight 219 lb BMI 28.9 BP 144/76 H Blood Pressure Location Lt brachial Position Sitting Pulse 60 Pulse Source Pulse Oximeter Pulse Oximetry (%) 97 Oxygen Delivery Method Room Air Intake Visit Reasons: cataract surgery on 05/19/24 Intake Note: Dr[facility]) Account Management Assistant Required: No Accompanied by: Self / Same As Patient Allergies sertraline [SERTRALINE] Allergy (Severe, Verified 04/20/24 14:03) RASH, ABD PAIN DEHYDRATION Penicillins [PENICILLINS] Allergy (Intermediate, Verified 04/20/24 14:03) RASH Medication List - Last Reconciled 04/20/24 by Marcelo Lopez MD albuterol sulfate 90 mcg/actuation (Ventolin HFA) 2 puffs inhalation Q6H PRN 30 days amlodipine 5 mg PO DAILY 90 days aspirin (Adult Low Dose Aspirin) 81 mg PO DAILY [BATHTUB TRANSFER BENCH EXTENSION LEGS As directed] blood sugar diagnostic (Digital [employer] Verio test strips) As directed- in vitro 3 times a day blood-glucose meter,continuous ([employer] G6 Furniture Removalist) As directed blood-glucose sensor ([employer] G6 Sensor device) As directed blood-glucose transmitter ([employer] G6 Transmitter device) test blood sugars three times daily bupropion HCl SR 200 mg PO QAM bupropion HCl XL 150 mg PO DAILY buspirone 5 mg PO BID cholecalciferol (vitamin D3) 250 mcg PO 2XW 90 days cyanocobalamin (vitamin B-12) 1,000 mcg PO DAILY fluoxetine 60 mg (3 x 20 mg) PO DAILY 30 days fluticasone propionate 50 mcg/actuation 1 spray intranasal DAILY gabapentin 100 mg PO DAILY 90 days insulin lispro (Humalog KwikPen (U-100) Insulin) Take 2 to 8 units SQ 4 times a day - with meals and at bedtime - PER SLIDING SCALE (see below for sliding scale details) Insulin as advised before meals 0-150: 0 unit 151-200: 2 units 201-250: 4 units 251-300: 6 units 301-350: 8 units >351 call irbesartan 300 mg PO DAILY lancets (Digital Trowel Delica Lancets) As directed Lantus Solostar U-100 Insulin (insulin glargine) 70 units (0.7 mL) subcut DAILY NS melatonin 3 mg PO BEDTIME PRN metformin 1,000 mg PO BID mirtazapine 15 mg PO BEDTIME omeprazole 40 mg PO BID oxycodone 5 mg PO Q4-6H PRN pyridoxine (vitamin B6) 50 mg PO DAILY 30 days rosuvastatin 10 mg PO DAILY 90 days sennosides (senna) 17.2 mg PO DAILY [shower chair As directed] Tobacco use date assessed: 04/20/24 Fall risk assessment: 2 + Falls in past year Last assessed Fall Risk: 04/20/24 Dental Screening Dental Screen Date: 04/20/24 Did you have a dental visit in the last 12 months?: Yes Did you have a dental problem in the last 6 months where you did not have access to dental care?: No Was dental information given to patient?: Patient has dentist HPI cataract surgery on 05/19/24 HPI Details Patient comes in today at the request of Dr. Mirtha Byrnes of the [facility] for a preoperative medical examination for clearance for surgery He is scheduled for cataract extraction/phacoemulsification with IOL under MAC of the left eye on 05/19/2024 Patient states that he currently feels okay He denies any headaches or dizziness Denies any chest pains, no SOB No nausea/vomiting, no abdominal pain No change in bowel habits noted PFSH Medical History Overweight (BMI 25.0-29.9) Type 2 diabetes mellitus with stage 3b chronic kidney disease, with long-term current use of insulin Mixed hyperlipidemia Obstructive sleep apnea Memory impairment Environmental allergies Chronic kidney disease (CKD), stage III (moderate) Prostate cancer screening H/O hyperkalemia Recurrent cough Obesity (BMI 30-39.9) Depression Anxiety Insomnia Primary osteoarthritis, left shoulder Crohn's disease GERD (gastroesophageal reflux disease) Pure hypercholesterolemia Benign essential hypertension Microalbuminuria intermediate manager (current) use of insulin Type 2 diabetes mellitus with diabetic polyneuropathy Allergic rhinitis Surgical History Hx of foot surgery (11/05/23) History of esophagogastroduodenoscopy (EGD) Hx of colonoscopy History of umbilical hernia repair Family History Father Diabetes Melanoma Mother Diabetes Hypertension Cancer Sister Diabetes Social History Household Members: None Housing: Apartment Do you presently have visiting nurse or other home services: No Alcohol intake: former Patient Tobacco Use Status: Former Tobacco user Tobacco use type: Cigarette e-Cigarette/Vaping Use: Never Used Second Hand Smoke Exposure: No service: No Current occupational status: employed Cognitive needs: No Hearing needs: No Vision needs: No Questionnaire PHQ-9 Over the last 2 weeks, how often have you been bothered by any of the following problems? 1. Little interest or pleasure in doing things: not at all 2. Feeling down, depressed, or hopeless: several days 3. Trouble falling or staying asleep, or sleeping too much: several days 4. Feeling tired or having little energy: not at all 5. Poor appetite or overeating: not at all 6. Feeling bad about yourself - or that you are a failure or have let yourself or your family down: not at all 7. Trouble concentrating on things, such as reading the newspaper or watching television: not at all 8. Moving or speaking so slowly that other people could have noticed. Or the opposite - being so fidgety or restless that you have been moving around a lot more than usual: not at all 9. Thoughts that you would be better off or of hurting yourself in some way: not at all Total score: 2 Depression Screening Interpretation: Positive Depression Screening Follow-up: Existing condition and In treatment Depression Screening Done: Yes 02085 - PHQ-9 Billing: Yes Source: Developed by Drs. Kirill Hanna, Jeimy Garcia, Bijan Milian and colleagues, with an educational rolanda from [employer]. Thrive Questionnaire Date Thrive assessed: 04/20/24 I am a: Patient What is your living situation today?: I have a steady place to live Within the past 12 months, did the food you bought not last and you didn't have the money to get more?: Never true Within the past 12 months, did you worry whether your food would run out before you got money to buy more?: Never true Do you have trouble paying for medicines?: No Do you have trouble getting transportation to medical appointments?: No Do you have trouble paying your heating and electricity bill?: No Do you have trouble taking care of your child, family member or friend?: No Do you have trouble with day-to-day activities such as bathing, preparing meals, shopping, managing finances, etc.?: No Are you currently unemployed and looking for a job?: No Are you interested in more education?: No Please select the resources that you would like help with: None Currently or been in a relationship where the following occur: No concerns reported THRIVE Score: 0 AUDIT C Alcohol Use Questionnaire (AUDIT-C) 1. How often do you have a drink containing alcohol?: Monthly or less 2. How many drinks containing alcohol do you have on a typical day when you are drinking?: 1 or 2 3. How often do you have six or more drinks on one occasion?: Never Total Score: 1 Score Reviewed/Action Taken: Yes NOHEMY-7 AMB Questionnaire NOHEMY-7 Date NOHEMY - 7 assessed: 04/20/24 Feeling nervous, anxious, or on edge: 0 = Not at all Not being able to stop or control worryin = Not at all Worrying too much about different things: 0 = Not at all Trouble relaxin = Not at all Being so restless that it is hard to sit still: 0 = Not at all Becoming easily annoyed or irritable: 0 = Not at all Feeling afraid as if something awful might happen: 0 = Not at all Total NOHEMY-7 score (0-4 normal; 5-9 mild; 10-14 moderate; 15-21 severe): 0 Source: Developed by Drs. Kirill Hanna, Jeimy Garcia, Bijan Milian and colleagues, with an educational rolanda from [employer]. Review of Systems Const Denies chills, Denies fatigue, Denies fever(s) and Denies headache(s) Eyes Reports blurry vision (in both eyes) ENT Denies dysphagia, Denies dizziness, Denies otalgia, Denies headache(s), Denies neck pain, Denies odynophagia and Denies sore throat Card Denies chest pain, Denies irregular heart rhythm, Denies palpitations and Denies dyspnea Resp Denies chest congestion, Denies cough and Denies dyspnea GI Denies abdominal pain, Denies constipation, Denies dysphagia, Denies heartburn, Denies diarrhea, Denies nausea, Denies odynophagia and Denies vomiting Denies difficulty urinating, Denies dysuria and Denies urinary frequency Musc Denies back pain, Denies arthralgias and Denies neck pain Skin/Breast Denies rash Neuro Denies dizziness, Denies headache(s) and Denies paresthesias Endo Denies fatigue and Denies palpitations Physical exam (Primary Care) Vital Signs: Last Vital Signs Pulse 60 04/20/24 13:39 BP 144/76 H 04/20/24 13:39 Pulse Ox 97 04/20/24 13:39 Oxygen Delivery Method Room Air 04/20/24 13:39 BMI result Body Mass Index 28.9 Tobacco/Smoking Status: Tobacco use Status Tobacco use date assessed 04/20/24 04/20/24 13:47 Patient Tobacco Use Status Former Tobacco user 04/20/24 13:47 Tobacco use type Cigarette 04/20/24 13:47 e-Cigarette/Vaping Use Never Used 04/20/24 13:47 PHQ-9: PHQ-9 Score PHQ-9: Total score 2 04/20/24 13:47 Depression Screening Interpretation: Positive Depression Screening Follow-up: Existing condition and In treatment Thrive Assessment: Date of Thrive Assessment Date Thrive assessed 04/20/24 04/20/24 13:47 Currently or been in a relationship where the following occur: No concerns reported Const General: no acute distress and alert HENMT Ears: TM's normal bilaterally and EAC's normal Throat: Yes posterior oropharynx normal and Yes tonsils normal (no TP congestion) Neck Neck: Yes no lymphadenopathy and Yes supple Thyroid: Thyroid normal Resp Auscultation: clear to auscultation bilaterally, no rales and no wheezes Cardio Rate: regular rate Rhythm: regular rhythm Heart sounds: no murmurs GI Palpation (GI): Soft to palpation and nontender Auscultation: normal bowel sounds General: Yes no CVA tenderness Back/Spine/Pelvis Back: no CVA tenderness Thoracic/Lumbar Spine: lumbar spinal tenderness (mild) Skin Rashes: no rashes Extrem General: Yes no clubbing, cyanosis or edema Results Reviewed Results Reviewed: Laboratory Tests 04/19/24 13:57 Hgb A1c (Clinic) 7.5 H Coding Level of Care Code Est Pt Level 4 (94684) Diagnoses Preoperative examination Z01.818 Senile cataract of left eye, unspecified age-related cataract type H25.9 Cataract type: age-related Age-related cataract type: unspecified Type 2 diabetes mellitus with stage 3b chronic kidney disease, with long-term current use of insulin E11.22; N18.32; Z79.4 Stage 3a chronic kidney disease N18.31 Chronic kidney disease stage 3 subtype: stage 3a (GFR 45-59) Mixed hyperlipidemia E78.2 Benign essential hypertension I10 Obstructive sleep apnea G47.33 Crohn's disease with complication, unspecified gastrointestinal tract location K50.919 Gastrointestinal tract location: unspecified location Digestive disease complication type: unspecified complication Constipation, unspecified constipation type K59.00 Constipation type: unspecified constipation type Primary insomnia F51.01 Insomnia type: primary Anxiety F41.9 Episode of recurrent major depressive disorder, unspecified depression episode severity F33.9 Depression Type: major depressive disorder Major depression recurrence: recurrent Active/Remission status: currently active Major depression episode severity: unspecified Overweight (BMI 25.0-29.9) E66.3 Additional Codes PHQ-9 - 21004 - PHQ-9 Billing: Yes ([id number]) Assessment & Plan Assessment & Plan (1) Preoperative examination: Code(s): Z01.818 - Encounter for other preprocedural examination Category: Medical Plan: Patient presents with acceptable risks for planned low cardiac risk procedure (2) Cataract, left eye: Code(s): H26.9 - Unspecified cataract Category: Medical Qualifiers: Cataract type: age-related Age-related cataract type: unspecified Qualified Code(s): H25.9 - Unspecified age-related cataract Plan: He is scheduled for cataract extraction/phacoemulsification with IOL under MAC of the left eye on 05/19/[address] Mirtha Byrnes of the [facility] (3) Type 2 diabetes mellitus with stage 3b chronic kidney disease, with long-term current use of insulin: Code(s): E11.22 - Type 2 diabetes mellitus with diabetic chronic kidney disease; N18.32 - Chronic kidney disease, stage 3b; Z79.4 - half-way (current) use of insulin Category: Medical Plan: His in-office HgbA1c was at 7.5% when checked yesterday (HgbA1c was previously at 7.3% back in January 2024) - goal is at least <7.0% Reinforced diabetic diet Continue Lantus Solostar 70 units Q HS, Humalog Kwikpen 2 to 8 units SQ 4 times a day (with meals and at bedtime) per sliding scale and Metformin 1000 mg BID We tried starting him on Trulicity in the past but he could not afford the co-pay for his Rx His cataract surgery had to be delayed as he was dealing with a toe infection/osteomyelitis a couple of months ago and had to undergo toe amputation first and get the infection cleared up before he can be scheduled for surgery We have also referred him to [facility] End[facility] in the past for his diabetes and he will now be seeing Dr. Burnham for his diabetes (4) Chronic kidney disease (CKD), stage III (moderate): Code(s): N18.30 - Chronic kidney disease, stage 3 unspecified Category: Medical Qualifiers: Chronic kidney disease stage 3 subtype: stage 3a (GFR 45-59) Qualified Code(s): N18.31 - Chronic kidney disease, stage 3a Plan: His renal function appears to have stabilized lately Will continue to monitor his renal function regularly (5) Mixed hyperlipidemia: Code(s): E78.2 - Mixed hyperlipidemia Category: Medical Plan: Reinforced low cholesterol diet Continue Rosuvastatin 10 mg QD (Rx was held when he was on Daptomycin for his osteomyelitis a few months ago); he had some unrecalled problems with Atorvastatin in the past but is tolerating Rosuvastatin with no issues Will recheck his labs and fasting lipids as scheduled in a couple of months for follow up (6) Benign essential hypertension: Code(s): I10 - Essential (primary) hypertension Category: Medical Plan: Reinforced low sodium diet - goal is systolic BP of at least 120 to 130 mm or less Continue Irbesartan 300 mg QD and Amlodipine 5 mg QD He used to also take HCTZ 12.5 mg QD in the past but this was discontinued at some point, likely when he presented to the hospital with DELVIS a few months ago He is reminded to continue monitoring his blood pressure regularly (7) Obstructive sleep apnea: Code(s): G47.33 - Obstructive sleep apnea (adult) (pediatric) Category: Medical Plan: He was diagnosed with HERSON last year and is now on CPAP therapy when he sleeps at night Follow up with Sleep Medicine as scheduled (8) Crohn's disease: Code(s): K50.90 - Crohn's disease, unspecified, without complications Category: Medical Qualifiers: Gastrointestinal tract location: unspecified location Digestive disease complication type: unspecified complication Qualified Code(s): K50.919 - Crohn's disease, unspecified, with unspecified complications Plan: Currently stable with no recent flare ups He was on Lialda 1.2 mg 2 tablets daily in the past but he stopped taking it a while back as he could not afford the cost of the Rx Follow up with GI (Dr. Rush) as scheduled (9) Constipation: Code(s): K59.00 - Constipation, unspecified Category: Medical Qualifiers: Constipation type: unspecified constipation type Qualified Code(s): K59.00 - Constipation, unspecified Plan: Reinforced increased oral fluids and dietary fiber Continue Senna 8.6 mg 2 tablets Q HS PRN (10) Insomnia: Code(s): G47.00 - Insomnia, unspecified Category: Medical Qualifiers: Insomnia type: primary Qualified Code(s): F51.01 - Primary insomnia Plan: Sleep hygiene reinforced He is on Mirtazapine, which helps with his sleep at night He could not tolerate Trazodone in the past - states that he felt like a zombie the next day He has also tried 1/2 tablet of OTC Melatonin 10 mg - states that it also knocks him out but not as much as Trazodone did Advised that he can continue Melatonin if it helps and there should be no concerning long-term side effects from it, including any habit-forming potential (11) Anxiety: Code(s): F41.9 - Anxiety disorder, unspecified Category: Medical Plan: Continue Lorazepam 0.5 mg QD PRN (12) Depression: Code(s): F32.9 - Major depressive disorder, single episode, unspecified Category: Medical Qualifiers: Depression Type: major depressive disorder Major depression recurrence: recurrent Active/Remission status: currently active Major depression episode severity: unspecified Qualified Code(s): F33.9 - Major depressive disorder, recurrent, unspecified Plan: Continue Fluoxetine 60 mg QD and Mirtazapine 15 mg Q HS Follow up with psychiatry as scheduled (13) Overweight (BMI 25.0-29.9): Code(s): E66.3 - Overweight Category: Medical Plan: Reinforced diet; exercise and weight loss are unrealistic at this time given patient's recent osteomyelitis, lurdes amputation and other physical issues Plan Patient is currently MEDICALLY OPTIMIZED and has NO CONTRAINDICATIONS to undergo planned cataract surgery on the left eye with Dr. Byrnes in a few weeks on 05/19/2024 - is CLEARED for surgery Follow up as scheduled in June 2024
== END 2024-04-20 14:13 | disposition home or self-care (01) ==
LOC: HO.HMCH 13:38
PROVIDERS: PCP Internal Medicine; Visit Provider Internal Medicine
DX: E11.22 Type 2 diabetes mellitus with diabetic chronic kidney disease (principal); N18.32 Chronic kidney disease, stage 3b; Z79.4 Long term (current) use of insulin; K50.919 Crohn's disease, unspecified, with unspecified complications; F33.9 Major depressive disorder, recurrent, unspecified; Z01.818 Encounter for other preprocedural examination; H25.9 Unspecified age-related cataract; E78.2 Mixed hyperlipidemia; I10 Essential (primary) hypertension; G47.33 Obstructive sleep apnea (adult) (pediatric); K59.00 Constipation, unspecified; F51.01 Primary insomnia

== ENCOUNTER → 2024-04-20 13:38 | Outpatient (BNVA) | payer MEDICARE, SELFPAY | PROVIDERS: PCP Internal Medicine; Visit Provider Internal Medicine | DX: Z01.818 Encounter for other preprocedural examination (principal); H25.9 Unspecified age-related cataract; I12.9 Hypertensive chronic kidney disease with stage 1 through stage 4 chronic kidney disease, or unspecified chronic kidney disease; E11.22 Type 2 diabetes mellitus with diabetic chronic kidney disease; N18.32 Chronic kidney disease, stage 3b; E78.2 Mixed hyperlipidemia; G47.33 Obstructive sleep apnea (adult) (pediatric); K50.919 Crohn's disease, unspecified, with unspecified complications; K59.00 Constipation, unspecified; F51.01 Primary insomnia; F41.9 Anxiety disorder, unspecified; Z79.4 Long term (current) use of insulin | CPT/HCPCS: 96127; 99212 ==

== ENCOUNTER 2024-06-16 11:35 | Outpatient (REF) | payer MEDICARE, SELFPAY ==
[2024-06-16 12:00] LABS: MANUAL DIFF FLAG NO
--- OUTSIDE RECORDS SUMMARY | 2024-06-16 12:47 | XMS_ITS ---
Author Name [facility] Organization Unknown Results Test Name/Text Value Interpretation Date Range Source POC Glucose 92mg/dL Normal [id number] 65 - 99 [facility] Vancomycin SerPl-mCnc 18mg/L Normal [id number] [facility] POC Glucose 172mg/dL Above high normal [id number] 65 - 99 [facility] Time of last dose Normal [id number] [facility] POC Glucose 163mg/dL Above high normal [id number] 65 - 99 [facility] POC Glucose 71mg/dL Normal [id number] 65 - 99 [facility] POC Glucose 96mg/dL Normal [id number] 65 - 99 [facility] Calcium SerPl-mCnc 9.1mg/dL Normal [id number] 8.7 - 10 .5 [facility] BUN SerPl-mCnc 27mg/dL Above high normal [id number] 8 - 21 [facility] Creat SerPl-mCnc 1.3mg/dL Normal [id number] 0.5 - 1.3 [facility] GFR/BSA.pred SerPlBld [id number] 59 Below low normal [id number] 59 - [facility] Chloride SerPl-sCnc 102mmol/L Normal [id number] 98 - 10 7 [facility] BUN/Creat SerPl 21Ratio Normal [id number] 10 - 25 H [facility] CO2 SerPl-sCnc 23mmol/L Normal [id number] 22 - 33 HH CCT Anion Gap Bld-sCnc 10 Normal [id number] 7 - 17 [facility] Potassium SerPl-sCnc 5.3mmol/L Normal [id number] 3.4 - 5.3 [facility] Glucose SerPl-mCnc 197mg/dL Above high normal [id number] 65 - 99 [facility] Sodium SerPl-sCnc 135mmol/L Below low normal [id number] 13 6 - 145 [facility] RBC num Bld Auto 3.16Mil/uL Below low normal [id number] 4. 5 - 6.2 [facility] RDW RBC Auto-Rto 14.9% Above high normal [id number] 11 .5 - 14.5 [facility] PMV Bld Auto 10fL Normal [id number] 7.5 - 12.[address] MCH RBC Qn Auto 27.2pg Normal [id number] 27 - 31 H [facility] WBC num Bld Auto 5.7Thou/uL Normal [id number] 4 - 11 [facility] Platelet num Bld Auto 414Thou/uL Normal [id number] 150 - 450 [facility] MCHC RBC Auto-mCnc 31.3g/dL Normal [id number] 30 - 36 [facility] Hct VFr Bld Auto 27.5% Below low normal [id number] 39 - 54 [facility] MCV RBC Auto 87fL Normal [id number] 80 - 100 [facility] T Hgb Bld-mCnc 8.6g/dL Below low normal [id number] 13 - 17 .7 [facility] POC Glucose 150mg/dL Above high normal [id number] 65 - 99 [facility] POC Glucose 170mg/dL Above high normal [id number] 65 - 99 [facility] POC Glucose 168mg/dL Above high normal [id number] 65 - 99 [facility] POC Glucose 119mg/dL Above high normal [id number] 65 - 99 [facility] POC Glucose 121mg/dL Above high normal [id number] 65 - 99 [facility] Calcium SerPl-mCnc 9.3mg/dL Normal [id number] 8.7 - 10 .5 [facility] BUN SerPl-mCnc 28mg/dL Above high normal [id number] 8 - 21 [facility] Creat SerPl-mCnc 1.1mg/dL Normal [id number] 0.5 - 1.3 [facility] GFR/BSA.pred SerPlBld GJS-VRY-LlXXrp 73 Normal [id number] 59 - [facility] Chloride SerPl-sCnc 101mmol/L Normal [id number] 98 - 10 7 [facility] BUN/Creat SerPl 25Ratio Normal [id number] 10 - 25 H [facility] CO2 SerPl-sCnc 20mmol/L Below low normal [id number] 22 - 33 [facility] Anion Gap Bld-sCnc 10 Normal [id number] 7 - 17 [facility] Potassium SerPl-sCnc 5mmol/L Normal 3.4 - 5.3 [facility] Glucose SerPl-mCnc 171mg/dL Above high normal [id number] 65 - 99 [facility] Sodium SerPl-sCnc 131mmol/L Below low normal [id number] 13 6 - 145 [facility] POC Glucose 156mg/dL Above high normal [id number] 65 - 99 [facility] Vancomycin SerPl-mCnc 18mg/L Normal [id number] [facility] POC Glucose 103mg/dL Above high normal [id number] 65 - 99 [facility] Time of last dose Normal [id number] [facility] POC Glucose 151mg/dL Above high normal [id number] 65 - [facility] POC Glucose 154mg/dL Above high normal [id number] 65 - 99 [facility] POC Glucose 170mg/dL Above high normal [id number] [facility] POC Glucose 235mg/dL Above high normal [id number] 65 - 99 [facility] POC Glucose 257mg/dL Above high normal [id number] 65 - 99 [facility] Calcium SerPl-mCnc 8.2mg/dL Below low normal [id number] 8 .7 - 10.5 [facility] BUN SerPl-mCnc 32mg/dL Above high normal [id number] 8 - 21 [facility] Creat SerPl-mCnc 1.5mg/dL Above high normal [id number] 0. 5 - 1.3 [facility] GFR/BSA.pred SerPlBld [id number] 50 Below low normal [id number] 59 - [facility] Chloride SerPl-sCnc 99mmol/L Normal [id number] 98 - 10 7 [facility] BUN/Creat SerPl 21Ratio Normal [id number] 10 - 25 H [facility] CO2 SerPl-sCnc 20mmol/L Below low normal [id number] 22 - 33 [facility] Anion Gap Bld-sCnc 9 Normal [id number] 7 - 17 [facility] Potassium SerPl-sCnc 5mmol/L Normal [id number] 3.4 - 5.3 [facility] Glucose SerPl-mCnc 216mg/dL Above high normal [id number] 65 - 99 [facility] Sodium SerPl-sCnc 128mmol/L Below low normal [id number] 13 6 - 145 [facility] POC Glucose 177mg/dL Above high normal [id number] 65 - 99 [facility] POC Glucose 170mg/dL Above high normal [id number] 65 - 99 [facility] POC Glucose 159mg/dL Above high normal [id number] - 99 [facility] Creat SerPl-mCnc 1.6mg/dL Above high normal 0. 5 - 1.3 [facility] GFR/BSA.pred SerPlBld QMQ-SUO-FkUXtj 46 Below low normal [id number] 59 - [facility] POC Glucose 138mg/dL Above high normal [id number] - 99 [facility] POC Glucose 221mg/dL Above high normal [id number] - [facility]CT POC Glucose 238mg/dL Above high normal [id number] - 99 [facility] POC Glucose 223mg/dL Above high normal [id number] 65 - 99 [facility] Hgb A1c MFr Bld 7.9% Above high normal [id number] - 5 .7 [facility] Est. average glucose Bld gHb Est-mCnc 180mg/dL Normal [id number] CCT Result Normal [id number] - [facility] Calcium SerPl-mCnc 9.4mg/dL Normal [id number] 8.7 - 10 .5 [facility] BUN SerPl-mCnc 24mg/dL Above high normal [id number] 8 - 21 [facility] Creat SerPl-mCnc 1.5mg/dL Above high normal [id number] 0. 5 - 1.3 [facility] GFR/BSA.pred SerPlBld ASB-CBQ-ZiYJbz 50 Below low normal [id number] 59 - [facility]CT Chloride SerPl-sCnc 98mmol/L Normal [id number] 98 - 10 7 [facility] BUN/Creat SerPl 16Ratio Normal [id number] 10 - 25 H [facility] CO2 SerPl-sCnc 22mmol/L Normal [id number] 22 - 33 HH CCT Anion Gap Bld-sCnc 13 Normal [id number] 7 - 17 [facility] Potassium SerPl-sCnc 5.4mmol/L Above high normal [id number] 1 3.4 - 5.3 [facility] Glucose SerPl-mCnc 170mg/dL Above high normal [id number] 65 - 99 [facility] Sodium SerPl-sCnc 133mmol/L Below low normal [id number] 13 6 - 145 [facility] Transferrin SerPl-mCnc 217mg/dL Normal [id number] 200 - 360 [facility] Prealb SerPl-mCnc 24mg/dL Normal [id number] 20 - 40 [facility] Neutrophils num Bld Auto 7.74Thou/uL Above high normal [id number] 2 - 7.5 [facility] Monocytes num Bld Auto 0.74Thou/uL Normal [id number] 0. 2 - 1.5 [facility] Eosinophil num Bld Auto 0.12Thou/uL Normal [id number] 0 - 0.7 [facility] WBC num Bld Auto 10.7Thou/uL Normal [id number] 4 - 11 [facility] MCHC RBC Auto-mCnc 31.9g/dL Normal [id number] 30 - 36 [facility] Monocytes/leuk NFr Bld Auto 6.9% Normal [id number] [facility] Hct VFr Bld Auto 37.3% Below low normal [id number] 39 - 54 [facility] RBC num Bld Auto 4.33Mil/uL Below low normal [id number] 4. 5 - 6.2 [facility] RDW RBC Auto-Rto 14.3% Normal [id number] 11.5 - 14. 5 [facility] PMV Bld Auto 10.2fL Normal [id number] 7.5 - 12.[address] Eosinophil/leuk NFr Bld Auto 1.1% Normal [id number] [facility] MCH RBC Qn Auto 27.5pg Normal [id number] 27 - 31 H [facility] Basophils/leuk NFr Bld Auto 0.7% Normal [id number] [facility] Basophils num Bld Auto 0.08Thou/uL Normal [id number] 0 - 0.2 [facility] Platelet num Bld Auto 555Thou/uL Above high normal [id number] 150 - 450 [facility] Neutrophils/leuk NFr Bld Auto 72.5% Normal [id number] [facility] MCV RBC Auto 86fL Normal [id number] 80 - 100 [facility] T Lymphocytes/leuk NFr Bld Auto 18.4% Normal [id number] [facility] Lymphocytes num Bld Auto 1.97Thou/uL Normal [id number] 1.5 - 4.5 [facility] Imm Granulocytes/leuk NFr Bld Auto 0.4% Normal [id number] [facility] Hgb Bld-mCnc 11.9g/dL Below low normal [id number] 13 - 17 .7 [facility] Imm Granulocytes num Bld Auto 0.04Thou/uL Normal [id number] 0 - 0.1 [facility] History of Medication Use Medication Directions Dispensed Refills Start Date End Date Stat Lantus SoloStar 100 UNIT/ML prefilled pen injection Inject 38 Units under the skin daily. 04/20/2024 06/14/9999 active gabapentin (NEURONTIN) 300 MG capsule Take 1 capsule (300 mg total) by mouth 3 (three) times a day. 04/20/2024 06/14/9999 active acetaminophen (TYLENOL) 325 MG tablet Take 3 tablets (975 mg total) by mouth every 6 (six) hours around the clock. 04/20/2024 06/14/9999 active metFORMIN (GLUCOPHAGE) 1000 MG tablet 1 tablet (1,000 mg total) by Mouth/Oral Cavity route every 12 hours. 04/20/2024 06/14/9999 active oxyCODONE (ROXICODONE) 5 MG immediate release tablet Take 1-2 tablets (5-10 mg total) by mouth every 4 (four) hours as needed for moderate pain or severe pain. Max Daily Amount: 60 mg 04/20/2024 06/14/9999 active polyethylene glycol (miraLAx) 17 g packet Take 1 packet (17 g total) by mouth daily. 04/20/2024 06/14/9999 active OMEprazole (PriLOSEC) 40 MG capsule 1 capsule (40 mg total) by Mouth/Oral Cavity route every 12 hours. 04/20/2024 06/14/9999 active senna-docusate (SENNA-S) 8.6-50 MG Take 1 tablet by mouth daily. 04/20/2024 06/14/9999 active irbesartan (AVAPRO) 300 MG tablet 04/20/2024 06/14/9999 active methocarbamol (ROBAXIN) 750 MG tablet Take 1 tablet (750 mg total) by mouth 4 (four) times a day as needed for muscle spasms. 04/20/2024 06/14/9999 active Cholecalciferol 250 MCG (57273 UT) Cap Take 50,000 Units by mouth once a week. 03/04/2024 active senna (Senna-Time) 8.6 MG Tab tablet Take 2 tablets by mouth daily as needed. 03/04/2024 active FLUoxetine (PROzac) 20 MG capsule Take 3 capsules (60 mg total) by mouth every morning. 03/04/2024 active aspirin enteric coated (ECOTRIN LOW STRENGTH) 81 MG EC tablet Take 1 tablet (81 mg total) by mouth every morning. 03/03/2024 active acetaminophen (TYLENOL) 500 MG tablet Take 1 tablet (500 mg total) by mouth 4 times daily (every 6 hours) as needed for mild pain. 03/04/2024 active albuterol (PROVENTIL HFA; VENTOLIN HFA) 108 (90 Base) MCG/ACT inhaler Inhale 2 puffs every 4 (four) hours as needed. 03/03/2024 active ibuprofen (MOTRIN) 200 MG tablet Take 1 tablet (200 mg total) by mouth 4 times daily (every 6 hours) as needed for mild pain. 03/04/2024 aborted Continuous Glucose Transmitter ([employer] G6 Transmitter) Misc 3 (three) times a day. USE TO TEST BLOOD SUGAR THREE TIMES DAILY 03/04/2024 active Lantus SoloStar 100 UNIT/ML prefilled pen injection Inject 45 Units under the skin daily. 03/04/2024 active oxyCODONE (ROXICODONE) 5 MG immediate release tablet Take 1 tablet (5 mg total) by mouth every 4 (four) hours as needed. 03/04/2024 active busPIRone (BUSPAR) 5 MG tablet Take 1 tablet (5 mg total) by mouth 2 (two) times a day. 03/04/2024 active atenolol (TENORMIN) 50 MG tablet Take 1 tablet (50 mg total) by mouth every morning. 03/04/2024 active amLODIPine (NORVASC) 5 MG tablet Take 1 tablet (5 mg total) by mouth every morning. 03/04/2024 active gabapentin (NEURONTIN) 100 MG capsule Take 1 capsule (100 mg total) by mouth 2 times a day. 03/04/2024 active Vitamin B6 50 MG tablet Take 1 tablet (50 mg total) by mouth every morning. 03/04/2024 active buPROPion (WELLBUTRIN XL) 150 MG 24 hr tablet Take 1 tablet (150 mg total) by mouth every morning. 03/04/2024 active cyanocobalamin (VITAMIN B-12) 1000 MCG tablet Take 1 tablet (1,000 mcg total) by mouth daily. 03/03/2024 active fluticasone (Flonase Allergy Relief) 50 mcg/spray nasal spray 2 sprays into each nostril daily as needed. 03/04/2024 active Problems Problem Status Onset Date Problem Type Date of Resolution Source Depression active 2024-03-23 ProblemAct [facility] HERSON (obstructive sleep apnea) active 2024-02-24 ProblemAct [facility] Osteomyelitis of ankle or foot, right, acute active 2024-02-24 ProblemAct [facility] Gastroesophageal reflux disease active 2024-02-24 ProblemAct [facility] CKD (chronic kidney disease) active 2024-03-23 ProblemAct [facility] Type 2 diabetes mellitus, with long-term current use of insulin active 2024-02-24 ProblemAct [facility] Diabetic polyneuropathy associated with type 2 diabetes mellitus active 2024-02-24 ProblemAct [facility] Anemia active 2024-03-24 ProblemAct [facility] Osteomyelitis active 2024-03-21 ProblemAct [facility] T Pain in right ankle and joints of right foot active EncounterDiagnosisAct [facility]CT Benign prostatic hyperplasia with nocturia active 2024-02-24 ProblemAct [facility] Pure hypercholesterolemia active 2024-02-24 ProblemAct [facility] Hyponatremia active 2024-03-23 ProblemAct [facility] HTN (hypertension) active 2024-02-24 ProblemAct [facility] Stage 3b chronic kidney disease active 2024-02-24 ProblemAct [facility]
[2024-06-16 13:13] LABS: Basophils Absolute Auto 0.1 X10*3/uL (0.0-0.2); Basophils Percent Auto 1.2 % (0-2); Eosinophils Absolute Auto 0.2 X10*3/uL (0.0-0.4); Eosinophils Percent Auto 2.5 % (0-4); Hematocrit 35.6 % (42.0-52.0); Hemoglobin 11.7 g/dl (14.0-18.0); Imm Gran Abs Auto 0.03 X10*3/uL (0.00-0.03); Imm Gran Pct Auto 0.4 % (0.0-0.4); Lymphocytes Absolute Auto 1.9 X10*3/uL (1.2-4.9); Mean Corpuscular HGB Conc 32.9 g/dl (31.0-36.0); Mean Corpuscular Volume 88.3 fL (80.0-98.0); Mean Platelet Volume 11.8 fL (9.4-12.4); Monocytes Absolute Auto 0.6 X10*3/uL (0.1-1.2); Monocytes Percent Auto 8.8 % (2-11); Neutrophils Absolute Auto 3.9 x10*3/uL (2.0-8.3); Neutrophils Percent Auto 59.1 % (45-73); Platelet Count 328 X10*3/uL (160-400); Red Blood Count 4.03 X10*6/uL (4.60-5.80); Red Cell Distribution Width 13.2 % (11.0-16.0); White Blood Count 6.7 X10*3/uL (4.8-10.8)
[2024-06-16 13:23] LABS: Appearance Urine Clear; Color Urine Yellow; Glucose Urine UA >=1000 mg/dL (Negative); Leukocyte Esterase Urine Negative (Negative); Nitrite Urine Negative (Negative); UMIC TRIGGER UACC YES; Urine Blood Negative (Negative); Urine Ketones Negative (Negative); Urine Protein 300 (3+) mg/dL (Neg-Trace)
[2024-06-16 13:24] LABS: Estimated Average Glucose 235 mg/dL; Hemoglobin A1C 253.2646 umol/L; Hemoglobin A1c % 9.8 % (<6.0)
[2024-06-16 13:28] LABS: Bacteria Urine None Seen (None Seen); Hyaline Casts Urine 0-2 /LPF (0-2); RBC Urine 0-2 /HPF (0-2); Squamous Epithelial Cell Urine 0-2 /HPF (0-2); WBC Urine 0-5 /HPF (0-5)
[2024-06-16 13:43] LABS: Alanine Aminotransferase 24 U/L (0-40); Albumin Level 4.1 g/dL (3.5-5.0); Alkaline Phosphatase 122 U/L (39-117); Anion Gap 12 (12-20); Aspartate Amino Transferase 19 U/L (5-37); Bilirubin Total 0.4 mg/dL (0.0-1.0); Blood Urea Nitrogen 24 mg/dL (9-16); Calcium 9.2 mg/dL (8.4-10.2); Carbon Dioxide 23 mmol/L (22-29); Chloride 106 mmol/L (96-108); Cholesterol 227 mg/dL (<200); Estimated Glomerular Filt Rate 46; Glucose Fasting 242 mg/dL (60-99); HDL Cholesterol 30 mg/dL (>40); LDL Cholesterol Calculated 167 mg/dL (<100); Sodium 136 mmol/L (135-145); Total Protein 7.6 g/dL (6.5-8.0); Triglycerides 154 mg/dL (<150)
[2024-06-16 13:46] LABS: TSH reflex Free T4 1.27 uIU/mL (0.32-4.0); Vitamin D 25-OH Total 59.3 ng/mL (>30)
[2024-06-16 13:49] LABS: Creatinine Urine 126.38 mg/dL
[2024-06-16 13:57] LABS: Microalbum/Creatinine Ratio Ur 1465.4 ug/mg cr (<30)
== END 2024-06-16 11:36 | disposition home or self-care (01) ==
LOC: HO.LAB 11:35
PROVIDERS: PCP Internal Medicine; Visit Provider Internal Medicine
DX: D64.9 Anemia, unspecified (principal); E78.00 Pure hypercholesterolemia, unspecified; E11.9 Type 2 diabetes mellitus without complications; E55.9 Vitamin D deficiency, unspecified
CPT/HCPCS: 36415; 80053; 80061; 81001; 82043; 82306; 82570; 83036; 84443; 85025

== ENCOUNTER 2024-06-20 14:41 | Outpatient (AMB) | payer MEDICARE, SELFPAY ==
--- NOTE | 2024-06-20 14:42 | A.OFFPC_ITS ---
Intake Visit Reasons: DM, hyperlipidemia, HTN, osteomyelitis Public Relations Writer Required: No Accompanied by: Self / Same As Patient Allergies sertraline [SERTRALINE] Allergy (Severe, Verified 06/20/24 16:52) RASH, ABD PAIN DEHYDRATION Penicillins [PENICILLINS] Allergy (Intermediate, Verified 06/20/24 16:52) RASH Medication List - Last Reconciled 06/20/24 by Marcelo Lopez MD albuterol sulfate 90 mcg/actuation (Ventolin HFA) 2 puffs inhalation Q6H PRN 30 days amlodipine 5 mg PO DAILY 90 days aspirin (Adult Low Dose Aspirin) 81 mg PO DAILY [BATHTUB TRANSFER BENCH EXTENSION LEGS As directed] blood sugar diagnostic ([employer] Verio test strips) As directed- in vitro 3 times a day blood-glucose meter,continuous ([employer] 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) As directed blood-glucose sensor ([employer] G6 Sensor device) As directed blood-glucose transmitter ([employer] G6 Transmitter device) USE TO TEST BLOOD SUGAR THREE TIMES DAILY bupropion HCl SR 200 mg PO QAM bupropion HCl XL 150 mg PO DAILY buspirone 5 mg PO BID cholecalciferol (vitamin D3) 250 mcg PO 2XW 90 days cyanocobalamin (vitamin B-12) 1,000 mcg PO DAILY fluoxetine 60 mg (3 x 20 mg) PO DAILY 30 days fluticasone propionate 50 mcg/actuation 1 spray intranasal DAILY gabapentin 100 mg PO DAILY 90 days insulin lispro (Humalog KwikPen (U-100) Insulin) Take 2 to 8 units SQ 4 times a day - with meals and at bedtime - PER SLIDING SCALE (see below for sliding scale details) Insulin as advised before meals 0-150: 0 unit 151-200: 2 units 201- 250: 4 units 251-300: 6 units 301-350: 8 units >351 call irbesartan 300 mg PO DAILY lancets ([employer] Delica Lancets) As directed Lantus Solostar U-100 Insulin (insulin glargine) 70 units (0.7 mL) subcut DAILY NS melatonin 3 mg PO BEDTIME PRN metformin 1,000 mg PO BID mirtazapine 15 mg PO BEDTIME omeprazole 40 mg PO BID oxycodone 5 mg PO Q4-6H PRN pen needle, diabetic (Easy Touch) 1 ea miscellaneous BID 30 days pyridoxine (vitamin B6) 50 mg PO DAILY 30 days rosuvastatin 10 mg PO DAILY 90 days sennosides (senna) 17.2 mg PO DAILY [shower chair As directed] Tobacco use date assessed: 06/20/24 Fall risk assessment: 2 + Falls in past year Last assessed Fall Risk: 06/20/24 Dental Screening Dental Screen Date: 06/20/24 Did you have a dental visit in the last 12 months?: Yes Did you have a dental problem in the last 6 months where you did not have access to dental care?: No Was dental information given to patient?: Patient has dentist HPI DM, hyperlipidemia, HTN, osteomyelitis HPI Details Patient's follow-up visit / consultation today is done over the phone - this is a Telehealth visit Patient's current medications have been reviewed and verified with patient and / or caregiver / proxy and have been updated accordingly in the medication list Patient states that he is still having problems controlling his blood sugar - states that he is taking all of his meds as prescribed He will be seeing endocrinology at [facility] tomorrow for his diabetes follow up He also continues to experience increased pain in his right foot and states that he will need his Oxycodone Rx refilled today States that he just got back from his eye doctor appointment and was reportedly advised that his eye exam came out okay Notes that his vision has improved a lot since his cataract surgery last month He denies any headaches or dizziness Denies any chest pains, no shortness of breath No nausea/vomiting, no abdominal pain No change in bowel habits noted He had his follow-up labs done a few days ago - to discuss his results [facility] Medical History Overweight (BMI 25.0-29.9) Type 2 diabetes mellitus with stage 3b chronic kidney disease, with long-term current use of insulin Mixed hyperlipidemia Obstructive sleep apnea Memory impairment Environmental allergies Chronic kidney disease (CKD), stage III (moderate) Prostate cancer screening H/O hyperkalemia Recurrent cough Obesity (BMI 30-39.9) Depression Anxiety Insomnia Primary osteoarthritis, left shoulder Crohn's disease GERD (gastroesophageal reflux disease) Pure hypercholesterolemia Benign essential hypertension 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 Type 2 diabetes mellitus with diabetic polyneuropathy Allergic rhinitis Surgical History Hx of foot surgery (11/05/23) History of esophagogastroduodenoscopy (EGD) Hx of colonoscopy History of umbilical hernia repair Family History Father Diabetes Melanoma Mother Diabetes Hypertension Cancer Sister Diabetes Social History Household Members: None Housing: Apartment Do you presently have visiting nurse or other home services: No Alcohol intake: former Patient Tobacco Use Status: Former Tobacco user Tobacco use type: Cigarette e-Cigarette/Vaping Use: Never Used Second Hand Smoke Exposure: No service: No Current occupational status: employed Cognitive needs: No Hearing needs: No Vision needs: No Questionnaire PHQ-9 Over the last 2 weeks, how often have you been bothered by any of the following problems? 1. Little interest or pleasure in doing things: not at all 2. Feeling down, depressed, or hopeless: several days 3. Trouble falling or staying asleep, or sleeping too much: several days 4. Feeling tired or having little energy: not at all 5. Poor appetite or overeating: not at all 6. Feeling bad about yourself - or that you are a failure or have let yourself or your family down: not at all 7. Trouble concentrating on things, such as reading the newspaper or watching television: not at all 8. Moving or speaking so slowly that other people could have noticed. Or the opposite - being so fidgety or restless that you have been moving around a lot more than usual: not at all 9. Thoughts that you would be better off or of hurting yourself in some way: not at all Total score: 2 Depression Screening Interpretation: Positive Depression Screening Follow-up: Existing condition and In treatment Depression Screening Done: Yes 18403 - PHQ-9 Billing: Yes Source: Developed by Drs. Kirill Hanna, Jeimy Garcia, Bijan Milian and colleagues, with an educational rolanda from [employer]. Thrive Questionnaire Date Thrive assessed: 06/20/24 I am a: Patient What is your living situation today?: I have a steady place to live Within the past 12 months, did the food you bought not last and you didn't have the money to get more?: Never true Within the past 12 months, did you worry whether your food would run out before you got money to buy more?: Never true Do you have trouble paying for medicines?: No Do you have trouble getting transportation to medical appointments?: No Do you have trouble paying your heating and electricity bill?: No Do you have trouble taking care of your child, family member or friend?: No Do you have trouble with day-to-day activities such as bathing, preparing meals, shopping, managing finances, etc.?: No Are you currently unemployed and looking for a job?: No Are you interested in more education?: No Please select the resources that you would like help with: None Currently or been in a relationship where the following occur: No concerns reported THRIVE Score: 0 AUDIT C Alcohol Use Questionnaire (AUDIT-C) 1. How often do you have a drink containing alcohol?: Monthly or less 2. How many drinks containing alcohol do you have on a typical day when you are drinking?: 1 or 2 3. How often do you have six or more drinks on one occasion?: Never Total Score: 1 Score Reviewed/Action Taken: Yes NOHEMY-7 AMB Questionnaire NOHEMY-7 Date NOHEMY - 7 assessed: 06/20/24 Feeling nervous, anxious, or on edge: 0 = Not at all Not being able to stop or control worryin = Not at all Worrying too much about different things: 0 = Not at all Trouble relaxin = Not at all Being so restless that it is hard to sit still: 0 = Not at all Becoming easily annoyed or irritable: 0 = Not at all Feeling afraid as if something awful might happen: 0 = Not at all Total NOHEMY-7 score (0-4 normal; 5-9 mild; 10-14 moderate; 15-21 severe): 0 Source: Developed by Drs. Kirill Hanna, Jeimy Garcia, Bijan Milian and colleagues, with an educational rolanda from [employer]. Review of Systems Const Denies chills, Reports fatigue, Denies fever(s) and Denies headache(s) ENT Denies dysphagia, Denies dizziness, Denies otalgia, Denies headache(s), Denies neck pain, Denies odynophagia and Denies sore throat Card Denies chest pain, Denies irregular heart rhythm, Denies palpitations and Denies dyspnea Resp Denies chest congestion, Denies cough and Denies dyspnea GI Denies abdominal pain, Denies constipation, Denies dysphagia, Denies heartburn, Denies diarrhea, Denies nausea, Denies odynophagia and Denies vomiting Denies difficulty urinating, Denies dysuria and Denies urinary frequency Musc Details: increased pain in his right foot Denies back pain, Denies arthralgias and Denies neck pain Skin/Breast Denies rash Neuro Denies dizziness, Denies headache(s) and Denies paresthesias Endo Reports fatigue and Denies palpitations Physical exam (Primary Care) Vital Signs: Physical examination is not performed as visit / consultation today is done over the phone - Telehealth visit All physical findings indicated here, if present, are as per patient's and / or caregivers / proxy's report Tobacco/Smoking Status: Tobacco use Status Tobacco use date assessed 06/20/24 06/20/24 14:44 Patient Tobacco Use Status Former Tobacco user 06/20/24 14:44 Tobacco use type Cigarette 06/20/24 14:44 e-Cigarette/Vaping Use Never Used 06/20/24 14:44 PHQ-9: PHQ-9 Score PHQ-9: Total score 2 06/20/24 16:53 Depression Screening Interpretation: Positive Depression Screening Follow-up: Existing condition and In treatment Thrive Assessment: Date of Thrive Assessment Date Thrive assessed 06/20/24 06/20/24 14:44 Currently or been in a relationship where the following occur: No concerns reported Telehealth Telehealth Telehealth Platform: Telephone Location of provider rendering services: practice address Location of patient: address on file Patient Identification confirmed using: Name, : Yes Telehealth method: voice only Patient verbally consented to treatment: Yes Patient verbally consented to billing insurance company: Yes Patient informed of any privacy concerns related to visit: Yes Minutes spent on Phone/Video with Pt.: 22 Results Reviewed Results Reviewed: Laboratory Tests 06/16/24 06/16/24 11:54 11:58 WBC 6.7 Hgb 11.7 L Hct 35.6 L Plt Count 328 D Sodium 136 Potassium 5.0 Creatinine 1.50 H Estimated GFR 46 Fasting Glucose 242 H Hemoglobin A1c % 9.8 H Calcium 9.2 D AST 19 ALT 24 Triglycerides 154 H Cholesterol 227 H LDL Cholesterol, Calc 167 H HDL Cholesterol 30 L 25-OH Vitamin D Total 59.3 TSH 1.27 Ur Specific [place] 1.020 Urine Protein 300 (3+) H Urine Glucose (UA) >=1000 H Urine Blood Negative Urine Nitrite Negative Ur Leukocyte Esterase Negative Microalb/Creat Ratio 1465.4 H Coding Level of Care Code Tele Est Pt Level 4 (76358) Diagnoses Type 2 diabetes mellitus with stage 3b chronic kidney disease, with long-term current use of insulin E11.22; N18.32; Z79.4 Stage 3a chronic kidney disease N18.31 Chronic kidney disease stage 3 subtype: stage 3a (GFR 45-59) Neuropathy G62.9 Mixed hyperlipidemia E78.2 Benign essential hypertension I10 Obstructive sleep apnea G47.33 Crohn's disease with complication, unspecified gastrointestinal tract location K50.919 Gastrointestinal tract location: unspecified location Digestive disease complication type: unspecified complication Constipation, unspecified constipation type K59.00 Constipation type: unspecified constipation type Primary insomnia F51.01 Insomnia type: primary Anxiety F41.9 Episode of recurrent major depressive disorder, unspecified depression episode severity F33.9 Depression Type: major depressive disorder Major depression recurrence: recurrent Active/Remission status: currently active Major depression episode severity: unspecified Overweight (BMI 25.0-29.9) E66.3 Additional Codes PHQ-9 - 45598 - PHQ-9 Billing: Yes ([id number]) Assessment & Plan Assessment & Plan (1) Type 2 diabetes mellitus with stage 3b chronic kidney disease, with long- term current use of insulin: Code(s): E11.22 - Type 2 diabetes mellitus with diabetic chronic kidney disease; N18.32 - Chronic kidney disease, stage 3b; Z79.4 - snf (current) use of insulin Category: Medical Plan: His HgbA1c is now at 9.8% on his labs done a few days ago (in-office HgbA1c was previously at 7.5% back in early April 2024) - goal is at least <7.0% Reinforced diabetic diet Continue Lantus Solostar 70 units Q HS, Humalog Kwikpen 2 to 8 units SQ 4 times a day (with meals and at bedtime) per sliding scale and Metformin 1000 mg BID We tried starting him on Trulicity in the past but he could not afford the co- pay for his Rx We have referred him to [facility] Endocrinology in the past for his diabetes and he will be seeing Dr. Burnham tomorrow for initial consultation (2) Chronic kidney disease (CKD), stage III (moderate): Code(s): N18.30 - Chronic kidney disease, stage 3 unspecified Category: Medical Qualifiers: Chronic kidney disease stage 3 subtype: stage 3a (GFR 45-59) Qualified Code(s): N18.31 - Chronic kidney disease, stage 3a Plan: His renal function appears to br gradually progressing again lately, likely due to his poor glycemic control Will continue to monitor his renal function regularly/closely (3) Neuropathy: Code(s): G62.9 - Polyneuropathy, unspecified Category: Medical Plan: Continue Oxycodone 5 mg Q 4 to 6 hours PRN only for severe pain - Rx refilled (4) Mixed hyperlipidemia: Code(s): E78.2 - Mixed hyperlipidemia Category: Medical Plan: Results of his labs done a few days ago reviewed and discussed with patient - his cholesterol levels have increased significantly from previous Reinforced low cholesterol diet He was on Rosuvastatin 10 mg QD in the past but Rx was held when he was on Daptomycin for his osteomyelitis a few months ago (he had some unrecalled problems with Atorvastatin in the past but is tolerating Rosuvastatin with no issues) Will now have him resume his Rosuvastatin 10 mg QD Will recheck his labs and fasting lipids in 3 months for follow up (5) Benign essential hypertension: Code(s): I10 - Essential (primary) hypertension Category: Medical Plan: Reinforced low sodium diet - goal is systolic BP of at least 120 to 130 mm or less Continue Irbesartan 300 mg QD and Amlodipine 5 mg QD He used to also take HCTZ 12.5 mg QD in the past but this was discontinued at some point, likely when he presented to the hospital with DELVIS a few months ago He is reminded to continue monitoring his blood pressure regularly (6) Obstructive sleep apnea: Code(s): G47.33 - Obstructive sleep apnea (adult) (pediatric) Category: Medical Plan: He was diagnosed with HERSON last year and is now on CPAP therapy when he sleeps at night Follow up with Sleep Medicine as scheduled (7) Crohn's disease: Code(s): K50.90 - Crohn's disease, unspecified, without complications Category: Medical Qualifiers: Gastrointestinal tract location: unspecified location Digestive disease complication type: unspecified complication Qualified Code(s): K50.919 - Crohn's disease, unspecified, with unspecified complications Plan: Currently stable with no recent flare ups He was on Lialda 1.2 mg 2 tablets daily in the past but he stopped taking it a while back as he could not afford the cost of the Rx Follow up with GI (Dr. Rush) as scheduled (8) Constipation: Code(s): K59.00 - Constipation, unspecified Category: Medical Qualifiers: Constipation type: unspecified constipation type Qualified Code(s): K59.00 - Constipation, unspecified Plan: Reinforced increased oral fluids and dietary fiber Continue Senna 8.6 mg 2 tablets Q HS PRN (9) Insomnia: Code(s): G47.00 - Insomnia, unspecified Category: Medical Qualifiers: Insomnia type: primary Qualified Code(s): F51.01 - Primary insomnia Plan: Sleep hygiene reinforced He is on Mirtazapine, which helps with his sleep at night He could not tolerate Trazodone in the past - states that he felt like a zombie the next day He has also tried 1/2 tablet of OTC Melatonin 10 mg - states that it also knocks him out but not as much as Trazodone did Advised that he can continue Melatonin if it helps and there should be no concerning long-term side effects from it, including any habit-forming potential (10) Anxiety: Code(s): F41.9 - Anxiety disorder, unspecified Category: Medical Plan: Continue Lorazepam 0.5 mg QD PRN (11) Depression: Code(s): F32.9 - Major depressive disorder, single episode, unspecified Category: Medical Qualifiers: Depression Type: major depressive disorder Major depression recurrence: recurrent Active/Remission status: currently active Major depression episode severity: unspecified Qualified Code(s): F33.9 - Major depressive disorder, recurrent, unspecified Plan: Continue Fluoxetine 60 mg QD and Mirtazapine 15 mg Q HS Follow up with psychiatry as scheduled (12) Overweight (BMI 25.0-29.9): Code(s): E66.3 - Overweight Category: Medical Plan: Reinforced diet; exercise and weight loss are unrealistic at this time given patient's recent osteomyelitis, toe amputation and other physical issues Plan Follow up in 3 months Orders: Orders Hemoglobin A1c 3 Months E11.9 - Type 2 diabetes mellitus without complications TSH reflex Free T4 3 Months E78.00 - Pure hypercholesterolemia, unspecified Vitamin B12 and Folate 3 Months E53.8 - Deficiency of other specified B group vitamins Complete Blood Count Auto Diff 3 Months D64.9 - Anemia, unspecified Lipid Panel 3 Months E78.00 - Pure hypercholesterolemia, unspecified Comprehensive [place]. Panel Fast 3 Months E78.00 - Pure hypercholesterolemia, unspecified Microalbumin, Random (w Creat) 3 Months E11.9 - Type 2 diabetes mellitus without complications UA CC w/rflx Micro + Cult 3 Months R30.0 - Dysuria Vitamin D 25-OH Total 3 Months E55.9 - Vitamin D deficiency, unspecified Medications: Refilled oxycodone Take as needed only for severe pain 5 mg PO Q4-6H PRN 20 tabs 0RF severe pain
== END 2024-06-20 17:36 | disposition home or self-care (01) ==
LOC: HO.HMCH 14:41
PROVIDERS: PCP Internal Medicine; Visit Provider Internal Medicine
DX: I12.9 Hypertensive chronic kidney disease with stage 1 through stage 4 chronic kidney disease, or unspecified chronic kidney disease (principal); E11.22 Type 2 diabetes mellitus with diabetic chronic kidney disease; N18.32 Chronic kidney disease, stage 3b; Z79.4 Long term (current) use of insulin; K50.919 Crohn's disease, unspecified, with unspecified complications; F33.9 Major depressive disorder, recurrent, unspecified; G62.9 Polyneuropathy, unspecified; E78.2 Mixed hyperlipidemia; G47.33 Obstructive sleep apnea (adult) (pediatric); K59.00 Constipation, unspecified; F51.01 Primary insomnia; F41.9 Anxiety disorder, unspecified

== ENCOUNTER → 2024-06-20 14:41 | Outpatient (BNVA) | payer MEDICARE, SELFPAY | PROVIDERS: PCP Internal Medicine; Visit Provider Internal Medicine | DX: E11.22 Type 2 diabetes mellitus with diabetic chronic kidney disease (principal); E11.40 Type 2 diabetes mellitus with diabetic neuropathy, unspecified; I12.9 Hypertensive chronic kidney disease with stage 1 through stage 4 chronic kidney disease, or unspecified chronic kidney disease; N18.30 Chronic kidney disease, stage 3 unspecified; E78.2 Mixed hyperlipidemia; G47.33 Obstructive sleep apnea (adult) (pediatric); K50.919 Crohn's disease, unspecified, with unspecified complications; K59.00 Constipation, unspecified; F51.01 Primary insomnia; F41.9 Anxiety disorder, unspecified; F33.9 Major depressive disorder, recurrent, unspecified; E66.3 Overweight; Z79.4 Long term (current) use of insulin | CPT/HCPCS: 96127 ==

== ENCOUNTER 2024-08-24 12:55 | Outpatient (REF) | payer MEDICARE, MEDICAID, SELFPAY ==
[2024-08-24 14:16] LABS: MANUAL DIFF FLAG NO
[2024-08-24 14:54] LABS: Basophils Absolute Auto 0.1 X10*3/uL (0.0-0.2); Basophils Percent Auto 0.7 % (0-2); Eosinophils Absolute Auto 0.1 X10*3/uL (0.0-0.4); Eosinophils Percent Auto 1.2 % (0-4); Hematocrit 34.1 % (42.0-52.0); Hemoglobin 11.7 g/dl (14.0-18.0); Imm Gran Abs Auto 0.04 X10*3/uL (0.00-0.03); Imm Gran Pct Auto 0.5 % (0.0-0.4); Lymphocytes Absolute Auto 1.8 X10*3/uL (1.2-4.9); Lymphocytes Percent Auto 21.9 % (20-40); Mean Corpuscular HGB Conc 34.3 g/dl (31.0-36.0); Mean Corpuscular Hemoglobin 29.5 pg (27.0-33.0); Mean Corpuscular Volume 86.1 fL (80.0-98.0); Mean Platelet Volume 12.1 fL (9.4-12.4); Monocytes Absolute Auto 0.7 X10*3/uL (0.1-1.2); Neutrophils Absolute Auto 5.6 x10*3/uL (2.0-8.3); Neutrophils Percent Auto 67.7 % (45-73); Platelet Count 304 X10*3/uL (160-400); Red Blood Count 3.96 X10*6/uL (4.60-5.80); White Blood Count 8.2 X10*3/uL (4.8-10.8)
[2024-08-24 15:06] LABS: Appearance Urine Clear; Color Urine Yellow; Glucose Urine UA 100 mg/dL (Negative); Leukocyte Esterase Urine Negative (Negative); Nitrite Urine Negative (Negative); Specific Gravity - Urine 1.025 (1.005-1.025); UMIC TRIGGER UACC YES; Urine Blood Negative (Negative); Urine Ketones Negative (Negative); Urine Protein 100 (2+) mg/dL (Neg-Trace)
[2024-08-24 15:13] LABS: Estimated Average Glucose 209 mg/dL; Hemoglobin A1c % 8.9 % (<6.0)
[2024-08-24 15:26] LABS: Bacteria Urine Trace (None Seen); Hyaline Casts Urine 0-2 /LPF (0-2); RBC Urine 0-2 /HPF (0-2); Squamous Epithelial Cell Urine 0-2 /HPF (0-2); WBC Urine 0-5 /HPF (0-5)
[2024-08-24 15:37] LABS: Creatinine Urine 200.75 mg/dL
[2024-08-24 15:40] LABS: Prostate Specific Antigen 1.37 ng/mL (<0.05-4.0)
[2024-08-24 15:45] LABS: Microalbum/Creatinine Ratio Ur 536.9 ug/mg cr (<30)
--- OUTSIDE RECORDS SUMMARY | 2024-08-24 16:28 | XMS_ITS | Encounter Summary ---
Author Organization [facility] Address [address] [place] [address] Care Team Providers Care Directory Compiler Name Role Phone Santi Castaneda MD Unavailable Marcelo Lopez MD Primary Care Provider [phone] Nico Smith MD Unavailable [phone] System, Provider Not In Unavailable Unavaila ble System, Provider Not In Unavailable Unavaila ble System, Provider Not In Unavailable Unavaila ble Encounter Details Date Type Department Care Team (Late st Contact Info) Description 08/02/2024 Refill [facility] [place] [address] Santi Castaneda MD [address] [place] [address] Chronic pain of left ankle (Primary Dx) [...] Primary documented in this encounter Care Teams Directory Compiler Relationship Specialty Start Date End Date Marcelo Lopez MD [address] [place] [address] [address] [place] [address] PCP - General Internal Medicine 02/22/24 Santi Castaneda MD [address] [place] [address] Surgery, Orthopedic 02/22/24 Nico Smith MD [address] [place] [address] Physician Nephrology 02/22/24 System, Provider Not In 02/25/24 System, Provider Not In Infectious Disease 02/25/24 System, Provider Not In Neurology 02/25/24 documented as of this encounter
--- OUTSIDE RECORDS SUMMARY | 2024-08-24 16:28 | XMS_ITS | Encounter Summary ---
Author Organization [facility] [place] [facility] Address [address] [place] [address] Care Team Providers Care Engine Mechanic Name Role Phone Santi Castaneda MD Unavailable [phone] Marcelo Lopez MD Primary Care Provider [phone] Nico Smith MD Unavailable [phone] System, Provider Not In Unavailable Unavaila ble System, Provider Not In Unavailable Unavaila ble System, Provider Not In Unavailable Unavaila ble Reason for Visit * Reason Comments Medication Refill Encounter Details Date Type Department Care Team (Late st Contact Info) Description 08/02/2024 Refill [facility] [place] [address] Santi Castaneda MD [address] [place] [address] Chronic pain of left ankle Social History [...] ankle documented in this encounter Care Teams Engine Mechanic Relationship Specialty Start Date End Date Marcelo Lopez MD [address] [place] [address] [address] [place] [address] PCP - General Internal Medicine 02/22/24 Santi Castaneda MD [address] [place] [address] Surgery, Orthopedic 02/22/24 Nico Smith MD [address] [facility] [address] [place] [address] Physician Nephrology 02/22/24 System, Provider Not In 02/25/24 System, Provider Not In Infectious Disease 02/25/24 System, Provider Not In Neurology 02/25/24 documented as of this encounter
--- OUTSIDE RECORDS SUMMARY | 2024-08-24 16:28 | XMS_ITS | Encounter Summary ---
Author Organization [facility] Address [address] [place] [address] Care Team Providers Care Disease Case Manager Rn Name Role Phone Santi Castaneda MD Unavailable [phone] Marcelo Lopez MD Primary Care Provider [phone] Nico Smith MD Unavailable [phone] System, Provider Not In Unavailable Unavaila ble System, Provider Not In Unavailable Unavaila ble System, Provider Not In Unavailable Unavaila ble Encounter Details Date Type Department Care Team (Late st Contact Info) Description 04/12/2024 Scanned Document [facility] [address] [place] [address] [place] [address] [facility] [address] [place] [address] Social History Tobacco Use Types Packs/Day Years [...] on filedocumented in this encounter Care Teams Disease Case Manager Rn Relationship Specialty Start Date End Date Marcelo Lopez MD [address] [place] [address] [address] [place] [address] PCP - General Internal Medicine 02/22/24 Santi Castaneda MD [address] [place] [address] Surgery, Orthopedic 02/22/24 Nico Smith MD [address] [facility] [address] [place] [address] Physician Nephrology 02/22/24 System, Provider Not In 02/25/24 System, Provider Not In Infectious Disease 02/25/24 System, Provider Not In Neurology 02/25/24 documented as of this encounter
--- OUTSIDE RECORDS SUMMARY | 2024-08-24 16:28 | XMS_ITS | Encounter Summary ---
Author Organization [facility] Address [address] [place] [address] Care Team Providers Care Senior Client Advisor Name Role Phone Santi Castaneda MD Unavailable Marcelo Lopez MD Primary Care Provider [phone] Nico Smith MD Unavailable System, Provider Not In Unavailable Unavaila ble System, Provider Not In Unavailable Unavaila ble System, Provider Not In Unavailable Unavaila ble Encounter Details Date Type Department Care Team (Late st Contact Info) Description 04/25/2024 Scanned Document [facility] [address] [place] [address] [place] [address] [facility] [address] [place] [address] Social History Tobacco Use Types Packs/Day Years [...] on filedocumented in this encounter Care Teams Senior Client Advisor Relationship Specialty Start Date End Date Marcelo Lopez MD [address] [place] [address] [address] [place] [address] PCP - General Internal Medicine 02/22/24 Santi Castaneda MD [address] [place] [id number] Surgery, Orthopedic 02/22/24 Nico Smith MD [address] [facility] [address] [place] [address] Physician Nephrology 02/22/24 System, Provider Not In 02/25/24 System, Provider Not In Infectious Disease 02/25/24 System, Provider Not In Neurology 02/25/24 documented as of this encounter
--- OUTSIDE RECORDS SUMMARY | 2024-08-24 16:29 | XMS_ITS | Clinical Summary ---
Author Organization [facility] Address [address] [place] [address] Care Team Providers Care [employer] Officer Name Role Phone Santi Castaneda MD Unavailable Marcelo Lopez MD Primary Care Provider [phone]- [phone] Nico Smith MD Unavailable [phone] System, Provider Not In Unavailable Unavaila [...] by mouth daily. 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, [address] [place] [address] 1 each 05/03/2024 Active SUPPLY DME MISCIndications:Pa in in right ankle and joints of right foot RIGHT FOOT CUSTOM NIGHT SPLINT DX: PLANTAR FASCIITIS [facility]: [address] [place] [address] 1 each 07/22/2024 Active celeCOXIB (CeleBREX) 200 [...] Date Type Department Care Team Description 08/02/2024 [facility] [address] [address] Santi Castaneda MD Chronic pain of left ankle 08/02/2024 [facility] [address] [address] Santi Castaneda MD Chronic pain of left ankle (Primary Dx) 07/22/2024 Orders Only [facility] [place] [phone] Santi Castaneda MD Pain in right ankle and joints of right foot (Primary Dx) 07/12/2024 1:45 PM EST Office Visit [facility] [place] [phone] Santi Castaneda MD Pain in right ankle and joints of right foot (Primary Dx) 05/31/2024 2:30 PM EST Office [place] [address] Ifrah Israel APRN Pain in right ankle [...] this topic Medical Devices Implanted Type Area State Auditor Device Identifier Shelf Expiration Date Model / Serial / Lot 620-005 Filler Bone Void 5cc 12.5cc Calcium Slf Stimulan Rpd Cure - [id number] Implanted:Qty : 1 on 03/21/2024 by Santi Castaneda MD at [facility] Void Filler Right: Foot [employer] [id number] 11/12/2025 620-005 / / [id number] Procedures Procedure Name Priority Date/Time Associated Diagnosis [...] 65 - 99 mg/dL 03/24/2024 9:50 AM [facility] Comment:Fasting: <100 mg/dL, Non-Fasting: <200 mg/dL (ADA 2004) Blood Urea Nitrogen (BUN) 27(H) 8 - 21 mg/dL 03/24/2024 9:50 AM [facility] Creatinine 1.3 0.5 - 1.3 mg/dL 03/24/2024 9:50 AM [facility] eGFR 59(L) >59 03/24/2024 9:50 AM [facility] Comment:CKD-EPI (2020) in mL /min/1.73 sq meters. Sodium 135(L) 136 - 145 mmol/L 03/24/2024 9:50 AM [facility] Potassium 5.3 3.4 - 5.3 mmol/L 03/24/2024 9:50 AM [facility] Chloride 102 98 - 107 mmol/L 03/24/2024 9:50 AM [facility] CO2 23 22 - 33 mmol/L 03/24/2024 9:50 AM [facility] Anion Gap 10 7 - 17 03/24/2024 9:50 AM [facility] Calcium 9.1 8.7 - 10.5 mg/dL 03/24/2024 9:50 AM [facility] BUN/Creatinine Ratio 21 10.0 - 25.0 Ratio 03/24/2024 9:50 AM [facility] Blood (Plasma/Serum) 03/24/2024 9:02 AM EDT 03/24/2024 9:22 AM EDT [facility] LAB BLOOD ORDERABLES Performing Organization Address City/[facility]/[place] [address], [place] [address] * (ABNORMAL) Hemoglobin A1c with Estimated Average Glucose (03/01/2024 3:23 PM EDT) Hemoglobin A1C 7.9(H) <5.7 % 03/02/2024 12:58 AM EDT [facility] Comment: A1c% ? Interpretation 5.7 - 6.0 ?Increase risk of diabetes 6.1 - 6.4 ?Higher risk of diabetes > or = 6.5 ?? 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 Expl anation Advance Directive-Scan 03/23/2024 Dang Melina Muro [employer] PROXY FORM / / 03/23/2024 * Full Code (Latest Code Status on File) Date Activated Date Inactivated Comments 03/21/2024 1:41 PM * Full Code Date Activated Date Inactivated Comments 03/21/2024 8:35 AM 03/21/2024 1:41 PM Care Teams [employer] Relationship Specialty Start Date End Date Marcelo Lopez MD [address] [place] [address] [address] [place] [address] PCP - General Internal Medicine 02/22/24 Santi Castaneda MD [address] [place] [address] Surgery, Orthopedic 02/22/24 Nico Smith MD [facility] [address] [place] [address] Physician Nephrology 02/22/24 System, Provider Not In 02/25/24 System, Provider Not In Infectious Disease 02/25/24 System, Provider Not In Neurology 02/25/24
--- OUTSIDE RECORDS SUMMARY | 2024-08-24 16:29 | XMS_ITS | Clinical Summary ---
Author Organization [facility] Address [address] [place] [address] Phone Care Team Providers Care Carpenter Supervisor Name Role Phone Marcelo Lopez MD Primary Care Provider [phone] Allergies Active Allergy Reactions Criticality Noted Date [...] 10.0 8.7 - 10.7 mg/dL eGFR Non-Afr Filipino 45 Hemoglobin A1C 6.2(A) 4.0 - 6.0 Triglycerides 293 Cholesterol, Total 230 10/14/2021 us Historical Provider LAB BLOOD ORDERABLES Mariluz l Result from Last 3 Months or Most Recently Relevant to Health Maintenance Insurance [facility] ([id number]) [place] [address] [facility] ([id number]) [place] [address] Care Teams Carpenter Supervisor Relationship Specialty Start Date End Date Marcelo Lopez MD [address] [place] [address] PCP - General Internal Medicine 11/07/21
[2024-08-24 17:12] LABS: Alanine Aminotransferase 17 U/L (0-40); Albumin Level 4.1 g/dL (3.5-5.0); Alkaline Phosphatase 107 U/L (39-117); Anion Gap 11 (12-20); Aspartate Amino Transferase 16 U/L (5-37); Bilirubin Total 0.6 mg/dL (0.0-1.0); Blood Urea Nitrogen 37 mg/dL (9-16); Calcium 9.2 mg/dL (8.4-10.2); Carbon Dioxide 21 mmol/L (22-29); Chloride 110 mmol/L (96-108); Cholesterol 200 mg/dL (<200); Estimated Glomerular Filt Rate 45; Glucose Fasting 207 mg/dL (60-99); HDL Cholesterol 26 mg/dL (>40); LDL Cholesterol Calculated 123 mg/dL (<100); Potassium 5.2 mmol/L (3.3-5.1); Sodium 137 mmol/L (135-145); Total Protein 7.7 g/dL (6.5-8.0); Triglycerides 258 mg/dL (<150)
[2024-08-24 17:32] LABS: TSH reflex Free T4 1.07 uIU/mL (0.32-4.0); Vitamin D 25-OH Total 41.3 ng/mL (>30)
[2024-08-24 23:53] LABS: Folate 6.1 ng/mL (> or = 4.0); Vitamin B12 1449 pg/mL (200-900)
== END 2024-08-24 12:56 | disposition home or self-care (01) ==
LOC: HO.LAB 12:55
PROVIDERS: Absent Provider Internal Medicine; PCP Internal Medicine; Visit Provider Nurse Practitioner Family
DX: R33.9 Retention of urine, unspecified (principal); R39.9 Unspecified symptoms and signs involving the genitourinary system; R35.1 Nocturia; E11.9 Type 2 diabetes mellitus without complications; E53.8 Deficiency of other specified B group vitamins; E78.00 Pure hypercholesterolemia, unspecified; D64.9 Anemia, unspecified; E55.9 Vitamin D deficiency, unspecified; Z12.5 Encounter for screening for malignant neoplasm of prostate; R80.9 Proteinuria, unspecified
CPT/HCPCS: 36415; 51798; 80053; 80061; 81001; 81003; 82043; 82306; 82570; 82607; 82746; 83036; 84153; 84443; 85025; 99202

== ENCOUNTER 2024-08-24 12:55 | Outpatient (AMB) | payer MEDICARE, SELFPAY ==
--- NOTE | 2024-08-24 13:00 | MHC.OFFVIS ---
Intake Visit Reasons: urinary retention Intake Note: Patient is present for urinary retention Urology Medication:vitamin b12,vitamin b6,sildenafil Antibiotic Allergy:penicillin Blood Thinner:aspirin TODAY'S PVR:54ML'S Geological E Logger Required: No Allergies sertraline [SERTRALINE] Allergy (Severe, Verified 08/24/24 13:42) RASH, ABD PAIN DEHYDRATION Penicillins [PENICILLINS] Allergy (Intermediate, Verified 08/24/24 13:42) RASH Medication List - Last Reconciled 08/24/24 by ROMMEL Hernandez albuterol sulfate 90 mcg/actuation (Ventolin HFA) 2 puffs inhalation Q6H PRN 30 days amlodipine 5 mg PO DAILY 90 days aspirin (Adult Low Dose Aspirin) 81 mg PO DAILY [BATHTUB TRANSFER BENCH EXTENSION LEGS As directed] blood sugar diagnostic (In[employer]ly Verio test strips) As directed- in vitro 3 times a day blood-glucose meter,continuous ([employer] G6 Service Counter Cashier) As directed blood-glucose sensor ([employer] G6 Sensor device) As directed blood-glucose transmitter ([employer] G6 Transmitter device) USE TO TEST BLOOD SUGAR THREE TIMES DAILY bupropion HCl SR 200 mg PO QAM bupropion HCl XL 150 mg PO DAILY buspirone 5 mg PO BID cholecalciferol (vitamin D3) 250 mcg PO 2XW 90 days cyanocobalamin (vitamin B-12) 1,000 mcg PO DAILY fluoxetine 60 mg (3 x 20 mg) PO DAILY 30 days fluticasone propionate 50 mcg/actuation 1 spray intranasal DAILY gabapentin 100 mg PO DAILY 90 days insulin lispro (Humalog KwikPen (U-100) Insulin) Take 2 to 8 units SQ 4 times a day - with meals and at bedtime - PER SLIDING SCALE (see below for sliding scale details) Insulin as advised before meals 0-150: 0 unit 151-200: 2 units 201-250: 4 units 251-300: 6 units 301-350: 8 units >351 call irbesartan 300 mg PO DAILY lancets (Induct[employer] Delica Lancets) As directed Lantus Solostar U-100 Insulin (insulin glargine) 70 units (0.7 mL) subcut DAILY NS melatonin 3 mg PO BEDTIME PRN metformin 1,000 mg PO BID mirtazapine 15 mg PO BEDTIME omeprazole 40 mg PO BID oxycodone 5 mg PO Q4-6H PRN pen needle, diabetic (Easy Touch) 1 ea miscellaneous BID 30 days pyridoxine (vitamin B6) 50 mg PO DAILY 30 days rosuvastatin 10 mg PO DAILY 90 days sennosides (senna) 17.2 mg PO DAILY [shower chair As directed] sildenafil 50 mg PO DAILY PRN trazodone 100 mg PO BEDTIME PRN 90 days HPI Comments Details: Johann is a very pleasant 69-year-old male patient of Dr. Lopez. He has a past medical history of type 2 diabetes, hyperlipidemia, obstructive sleep apnea, allergies, chronic kidney disease stage [address] Smith, obesity, depression, anxiety, insomnia, osteoarthritis, Crohn's disease, GERD, hypercholesteremia, and hypertension. In discussion with the patient today he reports a longstanding history of urinary issues for many years however feels they are worsening. He reports following up with his PCP at which time recommendations were made for urology referral for further assessment evaluation. Reports noting nocturia 5-6 times per night as well as feelings of incomplete bladder emptying. He reports episodes of urinary urgency and frequency. In office urinalysis results reviewed with the patient today negative leukocytes negative nitrates 3+ protein and 1+ glucose. He does report to be following up with Dr. Smith and has a longstanding history of kidney disease. PVR 54 mL. We discussed potential causes of lower urinary tract symptoms patient was experiencing as well as further workup and interventions and risks and benefits of these interventions. He otherwise denies hematuria, dysuria, foul smelling urine, flank pain, fever, and or chills. In review of patient's chart it appears PSAs are as follows 04/04 0.8, 10/05 0.8, 10/06 0.8. A1c 05/08 7.5. We discussed healthy bathroom behaviors as well as bladder triggers/irritants. Discussed obtaining retroperitoneal ultrasound and PSA for further assessment evaluation. CATHLEEN offered however deferred. [facility] Medical History Overweight (BMI 25.0-29.9) Type 2 diabetes mellitus with stage 3b chronic kidney disease, with long-term current use of insulin Mixed hyperlipidemia Obstructive sleep apnea Memory impairment Environmental allergies Chronic kidney disease (CKD), stage III (moderate) Prostate cancer screening H/O hyperkalemia Recurrent cough Obesity (BMI 30-39.9) Depression Anxiety Insomnia Primary osteoarthritis, left shoulder Crohn's disease GERD (gastroesophageal reflux disease) Pure hypercholesterolemia Benign essential hypertension Microalbuminuria residential (current) use of insulin Type 2 diabetes mellitus with diabetic polyneuropathy Allergic rhinitis Surgical History Hx of foot surgery (11/05/23) History of esophagogastroduodenoscopy (EGD) Hx of colonoscopy History of umbilical hernia repair Family History Father Diabetes Melanoma Mother Diabetes Hypertension Cancer Sister Diabetes Social History Household Members: None Housing: Apartment Do you presently have visiting nurse or other home services: No Alcohol intake: former Patient Tobacco Use Status: Former Tobacco user Tobacco use type: Cigarette e-Cigarette/Vaping Use: Never Used Second Hand Smoke Exposure: No service: No Current occupational status: employed Cognitive needs: No Hearing needs: No Vision needs: No Review of Systems Const Reports no additional complaints Eyes Reports no additional complaints Card Reports as per HPI Resp Reports as per HPI GI Reports no additional complaints Reports as per HPI Musc Reports as per HPI Neuro Reports no additional complaints Psych Reports as per HPI Endo Reports as per HPI Physical Exam Const General: cooperative, healthy appearing, comfortable, no acute distress, well developed, alert and awake Nutritional Appearance: overweight Orientation/consciousness: patient oriented x3 Limitations: ambulation with cane HEENT Head: Yes normal to inspection, Yes normocephalic and Yes atraumatic Ears: hearing grossly normal bilaterally Eyes General: appearance normal, both eyes and all related structures Neck Neck: Yes normal visual inspection and Yes trachea midline Chest Chest palpation & inspection: normal inspection of the chest Resp Effort & Inspection: normal respiratory effort and able to speak in complete sentences Cardio Rate: regular rate GI Inspection: Yes normal to inspection General: Yes no CVA tenderness Back/Spine/Pelvis Back: no CVA tenderness Skin General skin exam: no rashes or lesions noted Neuro General: patient oriented x3 Extrem General: Yes normal to inspection Psych Appearance: grossly normal and well kempt Mental Status: mental status grossly normal Speech and movement: Normal speech and movement present and Clear speech present Affect: normal affect Attitude: cooperative Thought process: Normal thought process present Thought content: Normal thought content present Insight: Fair insight present (Psych) Judgement: Fair judgement present (Psych) Office Procedures Post Void Residual Post Residual Void Post Void Residual (PVR): 54 [id number] Void Residual by ultrasound Results AMB Urinalysis, Automated UA Leukoctes 0 Juan F/uL Last Edit by TRACY Hyatt on 08/24/24 13:20 UA Nitrite Negative Last Edit by Rhonda Zepeda CCM on 08/24/24 13:20 UA Urobilinogen 3.5 mg/dL Last Edit by Rhonda Zepeda CCM on 08/24/24 13:20 UA Protein 3 mg/dL Last Edit by TRACY Hyatt on 08/24/24 13:20 UA pH 6.0 Last Edit by Rhonda Zepeda CCM on 08/24/24 13:20 UA Blood 0 Stevie/uL Last Edit by Rhonda Zepeda [facility] on 08/24/24 13:20 UA Specific [place] 1.020 Last Edit by Rhonda Zepeda CCM on 08/24/24 13:20 UA Ketone Negative Last Edit by TRACY Hyatt on 08/24/24 13:20 UA Bilirubin 0 mg/dL Last Edit by Rhonda Zepeda [facility] on 08/24/24 13:20 UA Glucose 15 mg/dL Last Edit by Rhonda Zepeda [facility] on 08/24/24 13:20 Results Reviewed Results Reviewed: Laboratory Last Values Urine pH (Auto) 6.0 08/24/24 13:19 Specific [place] (Auto) 1.020 08/24/24 13:19 Urine Protein (Auto) 3 mg/dL 08/24/24 13:19 Glucose (UA)(Auto) 15 mg/dL 08/24/24 13:19 Urine Ketones (Auto) Negative 08/24/24 13:19 Urine Blood (Auto) 0 Stevie/uL 08/24/24 13:19 Urine Nitrite (Auto) Negative 08/24/24 13:19 Urine Bilirubin (Auto) 0 mg/dL 08/24/24 13:19 Urine Urobilinogen (Auto) 3.5 mg/dL 08/24/24 13:19 Leukocyte Esterase (Auto) 0 Juan F/uL 08/24/24 13:19 Assessment & Plan Assessment & Plan (1) Proteinuria: Code(s): R80.9 - Proteinuria, unspecified Category: Medical (2) Lower urinary tract symptoms: Code(s): R39.9 - Unspecified symptoms and signs involving the genitourinary system Category: Medical (3) Nocturia: Code(s): R35.1 - Nocturia Category: Medical (4) Incomplete bladder emptying: Code(s): R33.9 - Retention of urine, unspecified Category: Medical Plan In office urinalysis results reviewed with the patient today; as noted above. PVR 54 mL. We discussed bladder triggers/irritants. We discussed healthy bathroom behaviors. Continue to follow-up with nephrology as planned. We discussed potential causes of lower urinary tract symptoms patient was experiencing as well as further treatment options and risks and benefits of these treatment options. We discussed importance of compliance with CPAP for improvement in lower urinary tract symptoms as well as overall health and well-being. We also discussed importance of management and diabetes for improvement in lower urinary tract symptoms as well as overall health and well-being. CATHLEEN offered however deferred. Will obtain PSA for further assessment evaluation. Will obtain retroperitoneal ultrasound for further assessment evaluation. Follow-up in 1-3 months with imaging and labs; or sooner with any issues, concerns, and or questions. Orders: Orders AMB Urinalysis Automated Today Z13.9 - Encounter for screening, unspecified US retroperitoneal comp Today R33.9 - Retention of urine, unspecified, R35.1 - Nocturia, R39.9 - Unspecified symptoms and signs involving the genitourinary system, R80.9 - Proteinuria, unspecified Prostate Specific Antigen Today R33.9 - Retention of urine, unspecified, R35.1 - Nocturia, R39.9 - Unspecified symptoms and signs involving the genitourinary system Patient Instructions: The patient had an opportunity to ask questions regarding the treatment plan. All questions were answered. Physical exam, labs, and imaging were discussed and reviewed in detail. As well as risks, benefits, and discussion of treatment choices. No major barriers to understanding were identified. The patient expressed understanding and agreement with the above treatment plan. The patient was made aware they should contact our office by phone for worsening of their current condition, the appearance of new symptoms, or with any questions or concerns. Compliance is encouraged with any medications and follow up testing that is ordered. It is a privilege to be allowed the opportunity to participate in? your urological care.? Again, if you have any questions or concerns If you have any questions or concerns please do not hesitate to contact me. The office is [phone]. This note is constructed using voice recognition software. While every effort has been made to ensure accuracy director of workforce development errors may have been included. Yours sincerely, RONNIE Hernandez- Coding Level of Care Code New Pt Level 3 (17011) Diagnoses Proteinuria R80.9 Lower urinary tract symptoms R39.9 Nocturia R35.1 Incomplete bladder emptying R33.9 CPT Codes Post Residual Void - PVR CPT Code: 89064-[id number] Void Residual by ultrasound ([id number])
--- OUTSIDE RECORDS SUMMARY | 2024-08-24 15:03 | XMS_ITS | Encounter Summary ---
Author Organization Formerly [facility] Address [address] [place] [address] Care Team Providers Care Iron Launder Operator Name Role Phone Santi Castaneda MD Unavailable Marcelo Lopez MD Primary Care Provider [phone] Nico Smith MD Unavailable [phone] System, Provider Not In Unavailable Unavaila ble System, Provider Not In Unavailable Unavaila ble System, Provider Not In Unavailable Unavaila ble Encounter Details Date Type Department Care Team (Late st Contact Info) Description 04/12/2024 Scanned Document [facility] [address] [place] [address] [place] [address] [facility] [address] [place] [address] Social History Tobacco Use Types Packs/Day Years Used Date Smoking Tobacco: Never Smokeless Tobacco: Never Alcohol Use Standard Drinks/Week Comments Not Currently 0 (1 standard drink = 0.6 oz pur e alcohol) recovery for 19 months AUDIT-C Answer Date Recorded Q1: How often do you have a drink containing alcohol? Never 02/25/2024 Q2: How many drinks containi ng alcohol do you have on a typical day when you are drinking? Patient does not drink Q3: How often do you have si x or more drinks on one occasion? Never 02/25/2024 Sex and Gender Information Value Date Recorded Sex Assigned at Male 02/03/2024 10:35 AM EDT Gender Identity Male 02/03/2024 10:35 AM EDT Sexual Orientation Other 02/03/2024 10 :35 AM EDT documented as of this encounter Plan of Treatment Not on file documented as of this encounter Visit Diagnoses Not on filedocumented in this encounter Care Teams Iron Launder Operator Relationship Specialty Start Date End Date Marcelo Lopez MD [address] [place] [address] [address] [place] [address] PCP - General Internal Medicine 02/22/24 Santi Castaneda MD [address] [place] [address] Surgery, Orthopedic 02/22/24 Nico Smith MD [address] [facility] [address] [place] [address] Physician Nephrology 02/22/24 System, Provider Not In 02/25/24 System, Provider Not In Infectious Disease 02/25/24 System, Provider Not In Neurology 02/25/24 documented as of this encounter
--- OUTSIDE RECORDS SUMMARY | 2024-08-24 15:03 | XMS_ITS ---
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 Generated for Printi leighann/Fracisco/eTransmitting on:?08/24/2024 03:03 PM EDT
--- OUTSIDE RECORDS SUMMARY | 2024-08-24 15:03 | XMS_ITS | Encounter Summary ---
Author Organization [facility] Address [address] [place] [address] Care Team Providers Care Brush Or Broom Cutter Name Role Phone Santi Castaneda MD Unavailable [phone] Marcelo Lopez MD Primary Care Provider [phone] Nico Smith MD Unavailable [phone] System, Provider Not In Unavailable Unavaila ble System, Provider Not In Unavailable Unavaila ble System, Provider Not In Unavailable Unavaila ble Encounter Details Date Type Department Care Team (Late st Contact Info) Description 08/02/2024 Refill [facility] [address] Santi Castaneda MD [address] [place] [address] Chronic pain of left ankle (Primary Dx) Social History Tobacco Use Types Packs/Day Years [...] documented as of this encounter Visit Diagnoses Diagnosis Chronic pain of left ankle- Primary documented in this encounter Care Teams Brush Or Broom Cutter Relationship Specialty Start Date End Date Marcelo Lopez MD [address] [place] [address] [address] [place] [address] PCP - General Internal Medicine 02/22/24 Santi Castaneda MD [address] [place] [address] Surgery, Orthopedic 02/22/24 Nico Smith MD [address] [place] [address] Physician Nephrology 02/22/24 System, Provider Not In 02/25/24 System, Provider Not In Infectious Disease 02/25/24 System, Provider Not In Neurology 02/25/24 documented as of this encounter
--- OUTSIDE RECORDS SUMMARY | 2024-08-24 15:03 | XMS_ITS | Encounter Summary ---
Author Organization [facility] Address [address] [place] [address] Care Team Providers Care Mfts Name Role Phone Santi Castaneda MD Unavailable Marcelo Lopez MD Primary Care Provider [phone] Nico Smith MD Unavailable [phone] System, Provider Not In Unavailable Unavaila ble System, Provider Not In Unavailable Unavaila ble System, Provider Not In Unavailable Unavaila ble Reason for Visit * Reason Comments Medication Refill Encounter Details Date Type Department Care Team (Late st Contact Info) Description 08/02/2024 Refill [facility] [place] [address] Santi Castaneda MD [address] [place] [address] Chronic pain of left ankle Social History Tobacco Use Types Packs/Day Years [...] Visit Diagnoses Diagnosis Chronic pain of left ankle documented in this encounter Care Teams Mfts Relationship Specialty Start Date End Date Marcelo Lopez MD [address] [place] [address] [address] [place] [address] PCP - General Internal Medicine 02/22/24 Santi Castaneda MD [address] [place] [address] Surgery, Orthopedic 02/22/24 Nico Smith MD [address] [facility] [address] [place] [address] Physician Nephrology 02/22/24 System, Provider Not In 02/25/24 System, Provider Not In Infectious Disease 02/25/24 System, Provider Not In Neurology 02/25/24 documented as of this encounter
--- OUTSIDE RECORDS SUMMARY | 2024-08-24 15:03 | XMS_ITS | Data Portability ---
Author Organization [place] - [facility], Allergy Address [address] [place] [id number] Care Team Providers Care Wine Pasteurizer Name Role Phone BALDEV CARRANZA Primary Care Provider MARLEEN MATTHEW Referring Provider Assessment Encounter Date Assessment Date Assessment LastModified by Organization Details LastModified Time 02/02/2024 02/02/2024 68-year-old male presents today for ear evaluation prior to hyperbaric therapy for nonhealing foot wound. He has a history of sudden sensorineural hearing loss which was treated with intratympanic injections in 2021, but unfortunately did not have any meaningful recovery of hearing in the left ear. He had an MRI which was negative for any retrocochlear mass. On exam, there is anterior diameter from previous intratympanic injection. There is no evidence of effusion or retraction. No contraindication to hyperbaric therapy based on exam today. We did discuss that hyperbaric treatment can sometimes cause ear pressure. If that is affecting his ability to tolerate the dives, he can come back for reassessment. [email or web address] Not available 02/06/2024 05:57:28 Plan of Treatment Reminders Order Date Submit Date Provider Last Modified By Organization Details Last Modified Time Details Appointments None recorded. Lab None recorded. Referral None recorded. Procedures None recorded. Surgeries None recorded. Imaging None recorded. Medication Orders Flonase Allergy Relief 50 mcg/actua tion nasal spray,ananda pension 024 024 [id number], [address] [place] [address], [phone], 14:28:43 Patient TargetsNo targets recorded. Patient InstructionsNo instructions recorded. Reason for Referral None Reported. Results Created Date Observation Date Name Description Value Unit Range Abnormal Flag Note LastModifiedBy Organization Detail LastModifiedTime 02/03/20 24 10/04/2018 imagi ng/di agnos tic resul t No observ ation record ed. [email or web address] Not Available 02:14:37 02/03/20 24 04/01/2022 imagi ng/di agnos tic resul t No observ ation record ed. [email or web address] Not Available 02:15:03 02/03/2004/01/2022 imagi ng/di agnos tic resul t No observ ation record ed. [email or web address] Not Available 02:15:05 02/03/20 24 04/28/2022 imagi ng/di agnos tic resul t No observ ation record ed. [email or web address] Not Available 02:15:18 02/03/20 24 04/29/2022 imagi ng/di agnos tic resul t No observ ation record ed. [email or web address] Not Available 02:15:19 02/03/20 24 05/21/2022 imagi ng/di agnos tic resul t No observ ation record ed. [email or web address] Not Available 02:15:22 02/03/20 24 05/21/2022 audio gram No observ ation record ed. [email or web address] Not Available 02:15:23 02/03/20 24 05/21/2022 audio gram No observ ation record ed. [email or web address] Not Available 02:15:28 02/03/20 24 08/15/2022 audio gram No observ ation record ed. [email or web address] Not Available 02:15:32 Result Notes None recorded. 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 Procedures Surgical History None recorded. Imaging Results Imaging Date Name Status LastModified by [facility] Details LastModified Time 10/04/2018 imaging/diagno stic result completed Information not available 02/03/2024 02:14:37 04/01/2022 imaging/diagno stic result completed Information not available 02/03/2024 02:15:03 04/01/2022 imaging/diagno stic result completed Information not available 02/03/2024 02:15:05 04/28/2022 imaging/diagno stic result completed Information not available 02/03/2024 02:15:18 04/29/2022 imaging/diagno stic result completed Information not available 02/03/2024 02:15:19 05/21/2022 imaging/diagno stic result completed [email or web address] Information not available 02/03/2024 02:15:22 05/21/2022 audiogram completed [email or web address] Information not available 02/03/2024 02:15:23 05/21/2022 audiogram completed [email or web address]. Information not available 02/03/2024 02:15:28 08/15/2022 audiogram completed [email or web address]. Information not available 02/03/2024 02:15:32 Procedure Notes None recorded. Medical Equipment None Reported. Allergies Allergen ID Allergen Name Allergen Category Reaction Reaction Severity Criticality Documentation Date Start Date Code Code System Note Provider Name and Address Organization Details Recorded Time 92775 Product containin g penicilli n (product) medicatio n other Not available Not available 10/27/2023 91203 8001 SNOMED React ion: unkno wn, unspe cifie d;; Not Available [facility] 00:51:45 Medications Name Sig Start Date Stop Date Status Note LastModified by Organization Details LastModified Time atorvasta tin 40 mg tablet 02/01 completed Medicati on ID: [id number] B rand Name: atorvast atin Sen d Method: E-Prescr ibed Sub s Allowed: subs OK Medic ationGen ericName : atorvast atin Not Available Not Available Not Available buspirone 5 mg tablet TAKE 1 TABLET BY MOUTH TWICE DAILY. START 01/31/24 active Not Available Not Available No t Available azithromy antonia 250 mg tablet TAKE 2 TABLETS BY MOUTH FOR 1 DAY THEN TAKE 1 TABLET BY MOUTH DAILY FOR 4 DAYS 02/01 completed Not Available Not Available Not Available hydrocodo ne 5 mg-acetam inophen 325 mg tablet TAKE 1-2 TABLET BY MOUTH EVERY 6 HOURS NEEDED FOR PAIN active Not Available Not Available No t Available senna 8.6 mg tablet TAKE 2 TABLETS BY MOUTH DAILY NEEDED FOR CONSTIPA TION active Not Available Not Available No t Available atenolol 25 mg tablet 02/01 completed Medicati on ID: [id number] B rand Name: atenolol Send Method: E-Prescr ibed Sub s Allowed: subs OK Medic ationGen ericName : atenolol Not Available Not Available Not Available Lantus U-100 Insulin 100 unit/mL subcutane ous solution 2017 active Medicati on ID: [id number] B rand Name: Lantus U-100 Insulin Send Method: E-Prescr ibed Sub s Allowed: subs OK Medic ationGen ericName : Lantus U-100 Insulin Not Available Not Available Not Available clindamyc in HCl 150 mg capsule TAKE 1 CAPSULE BY MOUTH EVERY 6 HOURS UNTIL DONE 02/01 completed Not Available Not Available Not Available cyanocoba pili (vit B-12) 1,000 mcg tablet TAKE 1 TABLET BY MOUTH EVERY DAY active Not Available Not Available No t Available thiamine HCl (vitamin B1) 100 mg tablet TAKE 1 TABLET BY MOUTH EVERY DAY active Not Available Not Available No t Available amlodipin e 5 mg tablet TAKE 1 TABLET BY MOUTH DAILY active Not Available Not Available No t Available omeprazol e 40 mg capsule,d elayed release TAKE 1 CAPSULE BY MOUTH TWICE DAILY active Not Available Not Available No t Available aspirin 81 mg tablet,de layed release 2017 active Medicati on ID: [id number] B rand Name: aspirin Send Method: E-Prescr ibed Sub s Allowed: subs OK Medic ationGen ericName : aspirin Not Available Not Available Not Available metformin 1,000 mg tablet TAKE 1 TABLET BY MOUTH TWICE DAILY active Not Available Not Available No t Available pyridoxin e (vitamin B6) 50 mg tablet TAKE 1 TABLET BY MOUTH DAILY active Not Available Not Available No t Available hydrochlo rothiazid e 25 mg tablet 02/01 completed Medicati on ID: [id number] B rand Name: hydrochl orothiaz fabrizio Send Method: E-Prescr ibed Sub s Allowed: subs OK Medic ationGen ericName : hydrochl orothiaz fabrizio Not Available Not Available Not Available mirtazapi ne 15 mg tablet TAKE 1 TABLET BY MOUTH AT BEDTIME active Not Available Not Available No t Available gabapenti n 100 mg capsule TAKE 1 CAPSULE BY MOUTH EVERY NIGHT active Not Available Not Available No t Available albuterol sulfate HFA 90 mcg/actua tion aerosol inhaler INHALE 2 PUFFS BY MOUTH EVERY 6 HOURS NEEDED FOR SHORTNES S OF BREATH OR WHEEZING active Not Available Not Available No t Available colchicin e 0.6 mg tablet TAKE 1 TABLET BY MOUTH TWICE DAILY FOR 3 DAYS 02/01 completed Not Available Not Available Not Available fluoxetin e 20 mg capsule TAKE 3 CAPSULES BY MOUTH DAILY WITH MEALS active Not Available Not Available No t Available doxycycli ne hyclate 100 mg tablet TAKE 1 TABLET BY MOUTH TWICE DAILY 02/01 completed Not Available Not Available Not Available atenolol 50 mg tablet TAKE 1 TABLET BY MOUTH DAILY active Not Available Not Available No t Available ipratropi um bromide 21 mcg (0.03 %) nasal spray 2 spray into both nostrils 02/01 completed Medicati on ID: [id number] D uration Value: 30 Prescri bed By Name: Joe Saunders nd Name: ipratrop ium bromide Send Method: E-Prescr ibed Sub s Allowed: subs OK Medic ationGen ericName : ipratrop ium bromide Not Available Not Available Not Available irbesarta n 300 mg tablet TAKE 1 TABLET BY MOUTH DAILY active Not Available Not Available No t Available oxycodone 5 mg tablet TAKE 1 TABLET BY MOUTH EVERY 4 TO 6 HOURS NEEDED FOR SEVERE PAIN active Not Available Not Available No t Available bupropion HCl SR 200 mg tablet,12 hr sustained -release TAKE 1 TABLET BY MOUTH EVERY MORNING active Not Available Not Available No t Available insulin lispro (U-100) 100 unit/mL subcutane ous pen active Not Available Not Available Not Available rosuvasta tin 10 mg tablet TAKE 1 TABLET BY MOUTH DAILY active Not Available Not Available No t Available bupropion HCl XL 150 mg 24 hr tablet, extended release TAKE 1 TABLET BY MOUTH DAILY active Not Available Not Available No t Available Lantus Solostar U-100 Insulin 100 unit/mL (3 mL) subcutane ous pen ADMINIST ER 70 UNITS UNDER THE SKIN DAILY active Not Available Not Available No t Available omeprazol e 20 mg tablet,de layed release 2017 active Medicati on ID: [id number] D uration Value: 30 Brand Name: omeprazo le Send Method: E-Prescr ibed Sub s Allowed: subs OK Speci al Instruct ion: Take 1 tablet by mouth every day before a meal Med icationG enericNa me: omeprazo le Not Available Not Available Not Available Easy Touch 31 gauge x 5/16 needle USE DIRECTED TWICE DAILY active Not Available Not Available No t Available Flonase Allergy Relief 50 mcg/actua tion nasal spray,ananda pension 2 puff into both nostrils 2023 active Not Available Not Available Not Avai lable Dexcom G6 Sensor device USE DIRECTED active Not Available Not Available No t Available Dexcom G6 Product Applications Scientist USE DIRECTED active Not Available Not Available No t Available Dexcom G6 Transmitt er device USE TO TEST BLOOD SUGAR THREE TIMES DAILY active Not Available Not Available No t Available Vitals Date Recorded Body height Body mass index (BMI) Body weight Provider Name and Address Organization Details Last Updated DateTime 02/02/2024 185.42 cm 29.4 kg/m2 973731.1 g Dorothea Ogden [place] - [facility] 02/02/2024 13:59:38 Social History None recorded. Functional Status None recorded. Mental Status None recorded. Family History Nothing Reported Notes:Cancer: Unspecified ty pe of cancer - father. Cardiovascular: Heart disease in a female, diagnosed at unknown age - mother and sister(s). Endocrine: Diabetes, age at onset unspecified - father, mother, and sister(s). Medical History Condition Response Diabetes Y Hypertension Y Past Encounters Encounter ID Performer Location Encounter Start Date Encounter Closed Date Diagnosis/Indication Diagnosis SNOMED-CT Code Diagnosis ICD10 Code Diagnosis Note [id number] VAN CASTILLO MD [facility] [address] [place] [address] 02/02/2024 13:49:07 02/02/2024 14:30:44 Posterior rhinorrhea 16445574 R09.82 I recommende d fluticason e for postnasal drip, follow-up if no improvemen t. Sudden idi opathic hearing loss 456645067 H91.22 Health Concerns Section Related Observation LastModified by Organization Detai ls LastModified Time None Recorded Concern Status LastModified by Organization Details LastModified Time None Recorded Advance Directives Directive None Recorded Payers Encounter Date Sequence Insurance Name Policy Number Policy Cesar Covered Member ID Cesar Member ID Guarantor Name 02/02/2024 1 [facility] (MEDICARE REPLACEMENT/A DVANTAGE - PPO) [id number] Johann Irwin [id number] Johann Irwin Notes Date Note Type Note Provider Name and Address Organization Details Recorded Time 02/02/2024 text/html 68-year-old male presents today for ear evaluation prior to hyperbaric therapy for nonhealing foot wound.He has a history of sudden sensorineural hearing loss which was treated with intratympanic injections in 2021, but unfortunately did not have any meaningful recovery of hearing in the left ear. He had an MRI which was negative for any retrocochlear mass.He does note some postnasal drip. VAN CASTILLO MD [address] [place] [address], [phone], [facility] - [facility] 02/06/2024 05:58:16
--- OUTSIDE RECORDS SUMMARY | 2024-08-24 15:03 | XMS_ITS | Encounter Summary ---
Author Organization [facility] Address [address] [place] [address] Care Team Providers Care Check Out Cashier Name Role Phone Santi Castaneda MD Unavailable Marcelo Lopez MD Primary Care Provider [phone] Nico Smith MD Unavailable [phone] System, Provider Not In Unavailable Unavaila ble System, Provider Not In Unavailable Unavaila ble System, Provider Not In Unavailable Unavaila ble Encounter Details Date Type Department Care Team (Late st Contact Info) Description 04/25/2024 Scanned Document [facility] [address] [place] [address] [place] [address] [facility] [address] [place] [address] Social History Tobacco Use Types Packs/Day Years [...] on filedocumented in this encounter Care Teams Check Out Cashier Relationship Specialty Start Date End Date Marcelo Lopez MD [address] [place] [address] [address] [place] [address] PCP - General Internal Medicine 02/22/24 Santi Castaneda MD [address] [place] [id number] Surgery, Orthopedic 02/22/24 Nico Smith MD [address] [facility] [address] [place] [address] Physician Nephrology 02/22/24 System, Provider Not In 02/25/24 System, Provider Not In Infectious Disease 02/25/24 System, Provider Not In Neurology 02/25/24 documented as of this encounter
--- OUTSIDE RECORDS SUMMARY | 2024-08-24 15:03 | XMS_ITS | Clinical Summary ---
Author Organization [facility] Address [address] [place] [address] Care Team Providers Care Slat Basket Maker Helper Machine Name Role Phone Santi Castaneda MD Unavailable [phone] Marcelo Lopez MD Primary Care Provider [phone] Nico Smith MD Unavailable [phone] System, Provider Not In Unavailable Unavaila ble System, Provider Not In Unavailable Unavaila ble System, Provider Not In Unavailable Unavaila ble Allergies Active Allergy Reactions Criticality Noted Date Comments Amoxicillin Rash/Dermatitis Low 02/09/2024 NAUSEA, VOMITING. Medications Medication Sig Dispensed Refills Start Date End Date Status albuterol (PROVENTIL HFA; VENTOLIN HFA) 108 (90 Base) MCG/ACT inhaler Inhale 2 puffs every 4 (four) hours as needed. Active amLODIPine (NORVASC) 5 MG tablet Take 1 tablet (5 mg total) by mouth every morning. Active buPROPion (WELLBUTRIN XL) 150 MG 24 hr tablet Take 1 tablet (150 mg total) by mouth every morning. Active Continuous Glucose Transmitter (Dexcom G6 Transmitter) Misc 3 (three) times a day. USE TO TEST BLOOD SUGAR THREE TIMES DAILY 12/23/2023 Active FLUoxetine (PROzac) 20 MG capsule Take 3 capsules (60 mg total) by mouth every morning. Active fluticasone (Flonase Allergy Relief) 50 mcg/spray nasal spray 2 sprays into each nostril daily as needed. 02/02/2024 Active senna (Senna-Time) 8.6 MG Tab tablet Take 2 tablets by mouth daily as needed. Active busPIRone (BUSPAR) 5 MG tablet Take 1 tablet (5 mg total) by mouth 2 (two) times a day. Active Vitamin B6 50 MG tablet Take 1 tablet (50 mg total) by mouth every morning. 01/25/2024 Active cyanocobalamin (VITAMIN B-12) 1000 MCG tablet Take 1 tablet (1,000 mcg total) by mouth daily. Active Cholecalciferol 250 MCG (35392 UT) Cap Take 50,000 Units by mouth once a week. Active irbesartan (AVAPRO) 300 MG tablet 03/10/2024 Active metFORMIN (GLUCOPHAGE) 1000 MG tablet 1 tablet (1,000 mg total) by Mouth/Oral Cavity route every 12 hours. 02/11/2024 Active OMEprazole (PriLOSEC) 40 MG capsule 1 capsule (40 mg total) by Mouth/Oral Cavity route every 12 hours. 03/01/2024 Active aspirin enteric coated (ECOTRIN LOW STRENGTH) 81 MG EC tabletIndications: Osteomyelitis of ankle or foot, right, acute (HCC) Take 1 tablet (81 mg total) by mouth 2 times a day. 03/24/2024 Active senna-docusate (SENNA-S) 8.6-50 MGIndications:Oste omyelitis of ankle or foot, right, acute (HCC) Take 1 tablet by mouth daily. 03/24/2024 Active polyethylene glycol (miraLAx) 17 g packetIndications: Osteomyelitis of ankle or foot, right, acute (HCC) Take 1 packet (17 g total) by mouth daily. 03/24/2024 Active methocarbamol (ROBAXIN) 750 MG tabletIndications: Osteomyelitis of ankle or foot, right, acute (HCC) Take 1 tablet (750 mg total) by mouth 4 (four) times a day as needed for muscle spasms. 03/24/2024 Active gabapentin (NEURONTIN) 300 MG capsuleIndications :Osteomyelitis of ankle or foot, right, acute (HCC) Take 1 capsule (300 mg total) by mouth 3 (three) times a day. 03/24/2024 Active oxyCODONE (ROXICODONE) 5 MG immediate release tabletIndications: Osteomyelitis of ankle or foot, right, acute (HCC) Take 1-2 tablets (5-10 mg total) by mouth every 4 (four) hours as needed for moderate pain or severe pain. Max Daily Amount: 60 mg 03/24/2024 Active acetaminophen (TYLENOL) 325 MG tabletIndications: Osteomyelitis of ankle or foot, right, acute (HCC) Take 3 tablets (975 mg total) by mouth every 6 (six) hours around the clock. 03/24/2024 Active Lantus SoloStar 100 UNIT/ML prefilled pen injectionIndicatio ns:Osteomyelitis of ankle or foot, right, acute (HCC) Inject 38 Units under the skin daily. 03/25/2024 Active SUPPLY DME MISCIndications:Os teomyelitis of foot, right, acute (HCC) Eval & Treat: Medial shoe filler custom orthotic s/p RT foot 1st Ray resection, partial amputation [facility]: Located in: [facility] Address: [facility], [address] [place] [address] 1 each 05/03/2024 Active SUPPLY DME MISCIndications:Pa in in right ankle and joints of right foot RIGHT FOOT CUSTOM NIGHT SPLINT DX: PLANTAR FASCIITIS [facility]: [address] [place] [address] 1 each 07/22/2024 Active celeCOXIB (CeleBREX) 200 MG capsuleIndications :Chronic pain of left ankle Take 1 capsule (200 mg total) by mouth 2 (two) times a day. 42 capsule 1 08/02/2024 Active Active Problems Problem Noted Date Diagnosed Date Anemia 03/24/2024 Hyponatremia 03/23/2024 CKD (chronic kidney disease) 03/23/2024 Depression 03/23/2024 Osteomyelitis 03/21/2024 Osteomyelitis of ankle or foot, right, acute 04/2024 Assessment & Plan (02/25/2024 2:10 PM EDT): Plan 03/21/24 first Metatarsal Ray resection. Partial Foot Amputation right. Surgeon is Dr Sergio Castaneda. HERSON (obstructive sleep apnea) 02/24/2024 Assessment & Plan (02/28/2024 6:58 PM EDT): Cpap: non compliant Monitor per HERSON perioperative guidelines. Type 2 diabetes mellitus, wi th long-term current use of insulin 02/24/2024 Assessment & Plan (02/28/2024 6:57 PM EDT): Preop A1C He has a Dexacom unit. Follows with Endocrinology. 45 units each morning. Patient directed to take 50% of usual dose or 22.5 units the day of surgery. Novolog? HTN (hypertension) 02/24/2024 Assessment & Plan (02/25/2024 2:21 PM EDT): Blood pressure in PREPARE> Managed with Amlodipine and Atenolol. Pure hypercholesterolemia 02/24/2024 Assessment & Plan (02/25/2024 2:22 PM EDT): Managed with Diabetic polyneuropathy asso ciated with type 2 diabetes mellitus 02/24/2024 Assessment & Plan (02/25/2024 2:24 PM EDT): Managed with Gabapentin Stage 3b chronic kidney disease 02/24/2024 Assessment & Plan (02/25/2024 2:23 PM EDT): Preop GRF Preop BUN/Creatinine: Avoid Nephrotoxic medications Gastroesophageal reflux disease 02/24/2024 Assessment & Plan (02/25/2024 2:22 PM EDT): Managed with Benign prostatic hyperplasia with nocturia 02/23 Assessment & Plan (02/28/2024 6:59 PM EDT): Symptoms: Managed with Depression 02/24/2024 Assessment & Plan (02/25/2024 2:24 PM EDT): Managed with Bupropion, Buspirone and Fluoxetine. Encounters Date Type Department Care Team Description 08/02/2024 [facility] [address] [address] Santi Castaneda MD Chronic pain of left ankle 08/02/2024 [facility] [address] [address] Santi Castaneda MD Chronic pain of left ankle (Primary Dx) 07/22/2024 Orders Only [facility] [phone] Santi Csataneda MD Pain in right ankle and joints of right foot (Primary Dx) 07/12/2024 1:45 PM EST Office Visit [facility] [phone] Santi Casatneda MD Pain in right ankle and joints of right foot (Primary Dx) 05/31/2024 2:30 PM EST Office [place] [facility] [place] [address] Ifrah Israel APRN Pain in right ankle and joints of right foot (Primary Dx) from Last 3 Months Family History Medical History Relation Name Comments Pulmonary embolism Daughter provoked after surgery Relation Name Status Comments Daughter Social History Tobacco Use Types Packs/Day Years [...] Orientation Other 02/03/2024 10 :35 AM EDT Last Filed Vital Signs Vital Sign Reading Time Taken Comments Blood Pressure 145/63 03/25/2024 8:31 AM EDT Pulse 56 03/25/2024 6:38 AM EDT Temperature 36.1 ??C (97 ??F) 03/25/2024 6:38 AM EDT Respiratory Rate 18 03/25/2024 6:38 AM EDT Oxygen Saturation 100% 03/25/2024 6:38 AM EDT Inhaled Oxygen Concentration - - Weight 109 kg (241 lb) 03/24/2024 7:00 AM EDT Height 185.4 cm (6' 1 ) 03/01/2024 2:15 PM EDT Body Mass Index 31.8 03/01/2024 2:15 PM EDT Plan of Treatment Health Maintenance Due Date Last Done Comments Hepatitis C Virus Screening 1954 Foot Exam 1964 Lipid Panel 1964 Ophthalmology Exam 1964 Microalbumin/Creatinine Ratio Urine 1972 DTaP/Tdap/Td Vaccines (1 - Tdap) 1973 Pneumococcal Vaccines 50+ (1 of 2 - PCV) 1973 Colonoscopy 1999 Zoster (Shingles) Vaccine (1 of 2) 2004 RSV Vaccine 60 years and older and Patients (1 - Risk 60-74 years 1-dose series) 2014 Influenza Vaccine 01/14/2024 03/20/2020, , 04/25/2019, Additional history exists COVID-19 Vaccine ( season) 2024 07/10/2020, 06/19/2020 Hemoglobin A1C 08/29/2024 03/01/2024 Creatinine with GFR 03/24/2025 03/24/2024, 03/23/2024, 03/22/2024, Additional history exists Hepatitis B Vaccines Aged Out No long er eligible based on patient's age to complete this topic Medical Devices Implanted Type Area Salesperson Men'S Hats Device Identifier Shelf Expiration Date Model / Serial / Lot 620-005 Filler Bone Void 5cc 12.5cc Calcium Slf Stimulan Rpd Cure - [id number] Implanted:Qty : 1 on 03/21/2024 by Santi Castaneda MD at [facility] Void Filler Right: Foot [employer] [id number] 11/12/2025 620-005 / / [id number] Procedures Procedure Name Priority Date/Time Associated Diagnosis Comments BASIC METABOLIC PANEL Routine 03/24/2024 9:02 AM EDT HEMOGLOBIN A1C WITH ESTIMATED AVERAGE GLUCOSE Routine 03/01/2024 3:23 PM EDT Osteomyelitis of ankle or foot, right, acute (HCC) HERSON (obstructive sleep apnea) Type 2 diabetes mellitus with other specified complication, without long-term current use of insulin (HCC) Essential hypertension Pure hypercholesterolemia Gastroesophageal reflux disease, unspecified whether esophagitis present Stage 3a chronic kidney disease (HCC) Depression, unspecified depression type Diabetic polyneuropathy associated with type 2 diabetes mellitus (HCC) Benign prostatic hyperplasia with nocturia from Last 3 Months or Most Recently Relevant to Health Maintenance Results * (ABNORMAL) Basic Metabolic Panel (AM) (03/24/2024 9:02 AM EDT) Glucose 197(H) 65 - 99 mg/dL 03/24/2024 9:50 AM [facility] Comment:Fasting: <100 mg/dL, Non-Fasting: <200 mg/dL (ADA 2004) Blood Urea Nitrogen (BUN) 27(H) 8 - 21 mg/dL 03/24/2024 9:50 AM [facility] Creatinine 1.3 0.5 - 1.3 mg/dL 03/24/2024 9:50 AM [facility] eGFR 59(L) >59 03/24/2024 9:50 AM [facility] Comment:CKD-EPI (2020) in mL /min/1.73 sq meters. Sodium 135(L) 136 - 145 mmol/L 03/24/2024 9:50 AM [facility] Potassium 5.3 3.4 - 5.3 mmol/L 03/24/2024 9:50 AM [facility] Chloride 102 98 - 107 mmol/L 03/24/2024 9:50 AM [facility] CO2 23 22 - 33 mmol/L 03/24/2024 9:50 AM [facility] Anion Gap 10 7 - 17 03/24/2024 9:50 AM [facility] Calcium 9.1 8.7 - 10.5 mg/dL 03/24/2024 9:50 AM [facility] BUN/Creatinine Ratio 21 10.0 - 25.0 Ratio 03/24/2024 9:50 AM [facility] Blood (Plasma/Serum) 03/24/2024 9:02 AM EDT 03/24/2024 9:22 AM EDT Gissell [facility] LAB BLOOD ORDERABLES Performing Organization Address City/[facility]/[place] [address], [place] [address] * (ABNORMAL) Hemoglobin A1c with Estimated Average Glucose (03/01/2024 3:23 PM EDT) Hemoglobin A1C 7.9(H) <5.7 % 03/02/2024 12:58 AM EDT [facility] Comment: A1c% ? Interpretation 5.7 - 6.0 ?Increase risk of diabetes 6.1 - 6.4 ?Higher risk of diabetes > or = 6.5 ?? Consistent with diabetes Diabetes Care, 33(Supp 1):S1-S61, 2010 Estimated Average Glucose 180 mg/dL 03/02/2024 12:58 AM EDT [facility] Blood Blood specimen / Unknown 03/01/2024 3:23 PM EDT 03/01/2024 9:36 PM EDT Sheridan Hahnjuneefrain [facility] LAB BLOOD ORDERABLES Performing Organization Address City/[facility] [place] [address], [place] [address] from Last 3 Months or Most Recently Relevant to Health Maintenance Advance Directives Documents on File Type Date Recorded Patient Budget Counselor Expl anation Advance Directive-Scan 03/23/2024 Dang Melina Muro [employer] PROXY FORM / / 03/23/2024 * Full Code (Latest Code Status on File) Date Activated Date Inactivated Comments 03/21/2024 1:41 PM * Full Code Date Activated Date Inactivated Comments 03/21/2024 8:35 AM 03/21/2024 1:41 PM Care Teams Slat Basket Maker Helper Machine Relationship Specialty Start Date End Date Marcelo Lopez MD [address] [place] [address] [address] [place] [address] PCP - General Internal Medicine 02/22/24 Santi Castaneda MD [address] [place] [address] Surgery, Orthopedic 02/22/24 Nico Smith MD [address] [facility] [address] [place] [address] Physician Nephrology 02/22/24 System, Provider Not In 02/25/24 System, Provider Not In Infectious Disease 02/25/24 System, Provider Not In Neurology 02/25/24
--- OUTSIDE RECORDS SUMMARY | 2024-08-24 15:03 | XMS_ITS | Clinical Summary ---
Author Organization [facility] Address [address] [place] [address] Phone Care Team Providers Care Parts Picker Name Role Phone Marcelo Lopez MD Primary Care Provider [phone] Allergies Active Allergy Reactions Criticality Noted Date Comments Penicillins 02/21/2022 Medications aspirin (ST SWETA) 81 MG EC tablet Take 81 mg by mouth 1 (one) time each day Active atenolol (TENORMIN) 50 MG tablet Take 50 mg by mouth 1 (one) time each day Active cetirizine (ZyrTEC) 10 MG tablet Take 10 mg by mouth 1 (one) time each day Active FLUoxetine (PROzac) 40 MG capsule Take 40 mg by mouth 1 (one) time each day Active irbesartan (AVAPRO) 300 MG tablet Take 300 mg by mouth every night Active metFORMIN (GLUCOPHAGE) 1000 MG tablet Take 1,000 mg by mouth in the morning and 1,000 mg in the evening. Take with meals. Active omeprazole (PriLOSEC) [address] capsule Take 40 mg by mouth 1 (one) time each day Do not crush or chew. Active traZODone (DESYREL) 100 MG tablet Take 100 mg by mouth every night Active tamsulosin (FLOMAX) 0.4 MG 24 hr capsule Take 1 capsule (0.4 mg total) by mouth 1 (one) time each day 30 capsule 3 03/25/2022 Active Dapagliflozin Propanediol (Farxiga) 10 MG tablet Take 10 mg by mouth 1 (one) time each day 90 tablet 3 05/05/2022 Active Active Problems Problem Noted Date Diagnosed Date Disorder of nervous system due to type 2 diabete s mellitus 11/05/2022 Renal osteodystrophy 05/05/2022 Stage 3a chronic kidney disease 03/25/2022 Type 2 diabetes mellitus wit h diabetic chronic kidney disease 03/25/2022 Gastroesophageal reflux disease 02/21/2022 Stage 3b chronic kidney disease 02/21/2022 Hyperkalemia 02/21/2022 Type 2 diabetes mellitus 03/09/2014 Proteinuria 02/28/2014 Hypertension 02/28/2014 Mononeuritis 08/18/2013 Resolved Problems Problem Noted Date Diagnosed Date Resolved Date Hypertensive heart and chron ic kidney disease without heart failure, with stage 1 through stage 4 chronic kidney disease, or unspecified chronic kidney disease 02/21/202202/21 Immunizations Name Administration Dates Next Due Influenza Split High Dose Preservative Free IM 1 06/25/2018 Influenza, MDCK, PF, Quadrivalent 03/13/2018 Influenza, Quadrivalent, Preservative Free 03/16 Influenza, Quadrivalent, With Preservative 03/09,04/22/2016 Influenza, Unspecified 03/20/2020,03/15/2015 Pfizer SARS-COV-2 07/10/2020,06/19/2020 Pneumococcal Polysaccharide 05/26/2016 Zoster 12/31/2015 Family History Medical History Relation Comments Diabetes Father Cancer Mother Diabetes Mother Hypertension Mother Diabetes Sister Relation Status Comments Father Mother Sister Social History Tobacco Use Types Packs/Day Years Used Date Smoking Tobacco: Former Cigarettes Smokeless Tobacco: Never Tobacco Cessation:Counseling Given: Not Answered Alcohol Use Standard Drinks/Week Comments Not Currently 0 (1 standard drink = 0.6 oz pur e alcohol) Sex and Gender Information Value Date Recorded Sex Assigned at Not on file Legal Sex Male 5:19 PM EST Gender Identity Not on file Sexual Orientation Not on file Last Filed Vital Signs Vital Sign Reading Time Taken Comments Blood Pressure 126/65 12/11/2022 12:37 PM EDT Pulse 54 12/11/2022 12:37 PM EDT Temperature - - Respiratory Rate - - Oxygen Saturation 95% 12/11/2022 12:37 PM EDT Inhaled Oxygen Concentration - - Weight 109 kg (239 lb 6.4 oz) 12/11/2022 12:37 P M EDT Height - - Body Mass Index - - Plan of Treatment Health Maintenance Due Date Last Done Comments Colorectal Cancer Screening: Annual FOBT 2003 Colorectal Cancer Screening: Colonoscopy 2003 Colorectal Cancer Screening: Sigmoidoscopy 2003 Pneumococcal Vaccine: 65+ Years (2 of 2 - PCV) 05/26/2017 05/26/2016 Diabetes: Ophthalmology Exam 02/21/2022 Diabetes: Pedal Pulse Checked 02/21/2022 Diabetes: Sensory Foot Exam 02/21/2022 Diabetes: Visual Foot Exam 02/21/2022 Influenza Vaccine (#1) 2024 0, 04/25/2019, 03/16/2019, Additional history exists Diabetes: Hemoglobin A1C 05/31/2024 03/01/2024, 05/0 07/2021 Hepatitis B Vaccine Aged Out No longe r eligible based on patient's age to complete this topic Procedures Procedure Name Priority Date/Time Associated Diagnosis Comments EXT RESULT ENTRY Routine 10/14/2021 from Last 3 Months or Most Recently Relevant to Health Maintenance Results * (ABNORMAL) EXT RESULT ENTRY (10/14/2021) WBC 6.3 3.3 - 10.0 10*3/ML Hemoglobin 12.2(A) 13.5 - 17.5 Hematocrit 35.6(A) 41.0 - 53.0 Platelets 328 150 - 399 10*3/UL Sodium 133(A) 137 - 147 Potassium 5.3 3.4 - 5.5 Creatinine 1.55(A) 0.60 - 1.30 mg/dL Calcium 10.0 8.7 - 10.7 mg/dL eGFR Non-Afr Russian 45 Hemoglobin A1C 6.2(A) 4.0 - 6.0 Triglycerides 293 Cholesterol, Total 230 10/14/2021 us Historical Provider LAB BLOOD ORDERABLES Mariluz l Result from Last 3 Months or Most Recently Relevant to Health Maintenance Insurance [facility] CHOICE ([id number]) [facility] CHOICE ([id number]) Care Teams Parts Picker Relationship Specialty Start Date End Date Marcelo Lopez MD [address] [place] [address] PCP - General Internal Medicine 11/07/21
--- OUTSIDE RECORDS SUMMARY | 2024-08-24 15:04 | XMS_ITS | Patient Health Record ---
Author Organization [facility] Address [address] [place] [address] Care Team Providers Care General Operations Agent Name Role Phone John PETERSEN Marcelo Primary Care Provider Tito Linarse Unavailable [phone] Allergies Allergen (clinical drug ingredient) Drug/Non Drug Allergy documented on EMR Reaction Allergy Type Onset Date Status Penicillin rash Drug Allergy Active Reason For Referral No Information Social History Tobacco Use: Social History Observation Description Date Details (start date - stop date) Never Smoker NA - NA Tobacco use other than smoking: Question Answer Notes Are you an other tobacco user? No Tobacco Control (Standard) Question Answer Notes Tobacco use: Nonsmoker Additional Findings: Tobacco non-user Current no nsmoker AUDIT-C (Standard) Question Answer Notes Did you have a drink containing alcohol in the p ast year? No Points 0 Interpretation Negative Encounters Encounter Location Date Provider Diagnosis [facility] [address] [place] [address] 07/08/2024 Tito Cain Plan Of Treatment Next Appt Details Provider Name:Tito Cain , 10/17/2024 01:00:00 PM, [address] [facility], [address], [place], [address], Insurance Providers Payer Name Payer Address Payer Phone Subscriber Number Group Number Insured Name Patient Relationship to Insured Coverage Start Date Coverage End Date [facility] Medicare Complete [address] [address] [place] [address] [id number] Johann Irwin Self - patient is the insured Medical (General) History Medical History History ICD Code Anxiety Arthritis CAD (Cholesterol) Cataracts covid-19 Crohns disease Depression Diabetic Hiatal hernia High Blood Pressure Numbness Poor circulation Reflux ( GERD) Surgical History Surgery Date(Month/Year) right great toe amputation 03/21/24
== END 2024-08-24 13:46 | disposition home or self-care (01) ==
LOC: HO.HUSH 12:56
PROVIDERS: PCP Internal Medicine; Visit Provider Nurse Practitioner Family
DX: R80.9 Proteinuria, unspecified (principal); R39.9 Unspecified symptoms and signs involving the genitourinary system; R35.1 Nocturia; R33.9 Retention of urine, unspecified; Z13.9 Encounter for screening, unspecified
CPT/HCPCS: 99203

== ENCOUNTER 2024-09-26 13:08 | Outpatient (AMB) | payer MEDICARE, MEDICAID, SELFPAY ==
[2024-09-26 13:20] VITALS: BP 100/62; PULSE 47; O2SAT 97; BMI 30.3
--- NOTE | 2024-09-26 13:20 | MHC.PC.OV ---
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 Apprentice Required: No Accompanied by: Self / Same As Patient Allergies sertraline [SERTRALINE] Allergy (Severe, Verified 09/26/24 13:49) RASH, ABD PAIN DEHYDRATION Penicillins [PENICILLINS] Allergy (Intermediate, Verified 09/26/24 13:49) RASH Medication List - Last Reconciled 09/26/24 by Marcelo Lopez MD albuterol sulfate 90 mcg/actuation (Ventolin HFA) 2 puffs inhalation Q6H PRN 30 days amlodipine 5 mg PO DAILY 90 days aspirin (Adult Low Dose Aspirin) 81 mg PO DAILY [BATHTUB TRANSFER BENCH EXTENSION LEGS As directed] blood sugar diagnostic ([employer] Verio test strips) As directed- in vitro 3 times a day blood-glucose sensor ([employer] G6 Sensor device) As directed blood-glucose transmitter ([employer] G6 Transmitter device) USE TO TEST BLOOD SUGAR THREE TIMES DAILY blood-glucose,marketing lead,cont ([email or web address] G6 Animal Control Officer) As directed bupropion HCl SR 200 mg PO QAM bupropion HCl XL 150 mg PO DAILY buspirone 5 mg PO BID cholecalciferol (vitamin D3) 250 mcg PO 2XW 90 days cyanocobalamin (vitamin B-12) 1,000 mcg PO DAILY fluoxetine 60 mg (3 x 20 mg) PO DAILY 30 days fluticasone propionate 50 mcg/actuation 1 spray intranasal DAILY gabapentin 100 mg PO DAILY 90 days insulin lispro (Humalog KwikPen (U-100) Insulin) Take 2 to 8 units SQ 4 times a day - with meals and at bedtime - PER SLIDING SCALE (see below for sliding scale details) Insulin as advised before meals 0-150: 0 unit 151-200: 2 units 201-250: 4 units 251-300: 6 units 301-350: 8 units >351 call irbesartan 300 mg PO DAILY lancets ([employer] Delica Lancets) As directed Lantus Solostar U-100 Insulin (insulin glargine) 70 units (0.7 mL) subcut DAILY NS melatonin 3 mg PO BEDTIME PRN metformin 1,000 mg PO BID mirtazapine 15 mg PO BEDTIME omeprazole 40 mg PO BID oxycodone 5 mg PO Q4-6H PRN pen needle, diabetic (Easy Touch) 1 ea miscellaneous BID 30 days pyridoxine (vitamin B6) 50 mg PO DAILY 30 days rosuvastatin 10 mg PO DAILY 90 days sennosides (senna) 17.2 mg PO DAILY [shower chair As directed] sildenafil 50 mg PO DAILY PRN trazodone 100 mg PO BEDTIME PRN 90 days Tobacco use date assessed: 09/26/24 Fall risk assessment: 2 + Falls in past year Last assessed Fall Risk: 09/26/24 Dental Screening Dental Screen Date: 09/26/24 Did you have a dental visit in the last 12 months?: No Did you have a dental problem in the last 6 months where you did not have access to dental care?: No Was dental information given to patient?: No HPI 4 month f/u HPI Details Patient comes in today for his follow-up visit States that he feels okay He denies any headaches or dizziness Denies any chest pains, no increased shortness of breath No nausea/vomiting, no abdominal pain No change in bowel habits noted He had his follow-up labs done last month - to discuss his results [facility] Medical History Overweight (BMI 25.0-29.9) Type 2 diabetes mellitus with stage 3b chronic kidney disease, with long-term current use of insulin Mixed hyperlipidemia Obstructive sleep apnea Memory impairment Environmental allergies Chronic kidney disease (CKD), stage III (moderate) Prostate cancer screening H/O hyperkalemia Recurrent cough Obesity (BMI 30-39.9) Depression Anxiety Insomnia Primary osteoarthritis, left shoulder Crohn's disease GERD (gastroesophageal reflux disease) Pure hypercholesterolemia Benign essential hypertension Microalbuminuria nursing home (current) use of insulin Type 2 diabetes mellitus with diabetic polyneuropathy Allergic rhinitis Surgical History Hx of foot surgery (11/05/23) History of esophagogastroduodenoscopy (EGD) Hx of colonoscopy History of umbilical hernia repair Family History Father Diabetes Melanoma Mother Diabetes Hypertension Cancer Sister Diabetes Social History Household Members: None Housing: Apartment Do you presently have visiting nurse or other home services: No Alcohol intake: former Patient Tobacco Use Status: Former Tobacco user Tobacco use type: Cigarette e-Cigarette/Vaping Use: Never Used Second Hand Smoke Exposure: No service: No Current occupational status: employed Cognitive needs: No Hearing needs: No Vision needs: No Questionnaire PHQ-9 Over the last 2 weeks, how often have you been bothered by any of the following problems? 1. Little interest or pleasure in doing things: not at all 2. Feeling down, depressed, or hopeless: several days 3. Trouble falling or staying asleep, or sleeping too much: several days 4. Feeling tired or having little energy: not at all 5. Poor appetite or overeating: not at all 6. Feeling bad about yourself - or that you are a failure or have let yourself or your family down: not at all 7. Trouble concentrating on things, such as reading the newspaper or watching television: not at all 8. Moving or speaking so slowly that other people could have noticed. Or the opposite - being so fidgety or restless that you have been moving around a lot more than usual: not at all 9. Thoughts that you would be better off or of hurting yourself in some way: not at all Total score: 2 Depression Screening Interpretation: Positive Depression Screening Follow-up: Existing condition and In treatment Depression Screening Done: Yes 05457 - PHQ-9 Billing: Yes Source: Developed by Drs. Kirill Hanna, Jeimy Garcia, Bijan Milian and colleagues, with an educational rolanda from [employer]. Thrive Questionnaire Date Thrive assessed: 09/26/24 I am a: Patient What is your living situation today?: I have a steady place to live Within the past 12 months, did the food you bought not last and you didn't have the money to get more?: Never true Within the past 12 months, did you worry whether your food would run out before you got money to buy more?: Never true Do you have trouble paying for medicines?: No Do you have trouble getting transportation to medical appointments?: No Do you have trouble paying your heating and electricity bill?: No Do you have trouble taking care of your child, family member or friend?: No Do you have trouble with day-to-day activities such as bathing, preparing meals, shopping, managing finances, etc.?: No Are you currently unemployed and looking for a job?: No Are you interested in more education?: No Please select the resources that you would like help with: None Currently or been in a relationship where the following occur: No concerns reported THRIVE Score: 0 AUDIT C Alcohol Use Questionnaire (AUDIT-C) 1. How often do you have a drink containing alcohol?: Monthly or less 2. How many drinks containing alcohol do you have on a typical day when you are drinking?: 1 or 2 3. How often do you have six or more drinks on one occasion?: Weekly Total Score: 4 Score Reviewed/Action Taken: Yes NOHEMY-7 AMB Questionnaire NOHEMY-7 Date NOHEMY - 7 assessed: 09/26/24 Feeling nervous, anxious, or on edge: 0 = Not at all Not being able to stop or control worryin = Not at all Worrying too much about different things: 0 = Not at all Trouble relaxin = Not at all Being so restless that it is hard to sit still: 0 = Not at all Becoming easily annoyed or irritable: 0 = Not at all Feeling afraid as if something awful might happen: 0 = Not at all Total NOHEMY-7 score (0-4 normal; 5-9 mild; 10-14 moderate; 15-21 severe): 0 Source: Developed by Drs. Kirill Hanna, Jeimy Garcia, Bijan Milian and colleagues, with an educational rolanda from [employer]. Review of Systems Const Denies chills, Reports fatigue, Denies fever(s) and Denies headache(s) ENT Denies dysphagia, Denies dizziness, Denies otalgia, Denies headache(s), Denies neck pain, Denies odynophagia and Denies sore throat Card Denies chest pain, Denies irregular heart rhythm, Denies palpitations and Denies dyspnea Resp Denies chest congestion, Denies cough and Denies dyspnea GI Denies abdominal pain, Denies constipation, Denies dysphagia, Denies heartburn, Denies diarrhea, Denies nausea, Denies odynophagia and Denies vomiting Denies difficulty urinating, Denies dysuria and Denies urinary frequency Musc Details: increased pain in his right foot Denies back pain, Denies arthralgias and Denies neck pain Skin/Breast Denies rash Neuro Denies dizziness, Denies headache(s) and Denies paresthesias Endo Reports fatigue and Denies palpitations Physical exam (Primary Care) Vital Signs: Last Vital Signs Pulse 47 L 09/26/24 13:20 BP 100/62 09/26/24 13:20 Pulse Ox 97 09/26/24 13:20 Oxygen Delivery Method Room Air 09/26/24 13:20 BMI result Body Mass Index 30.3 Tobacco/Smoking Status: Tobacco use Status Tobacco use date assessed 09/26/24 09/26/24 13:29 Patient Tobacco Use Status Former Tobacco user 09/26/24 13:29 Tobacco use type Cigarette 09/26/24 13:29 e-Cigarette/Vaping Use Never Used 09/26/24 13:29 PHQ-9: PHQ-9 Score PHQ-9: Total score 2 09/26/24 13:54 Depression Screening Interpretation: Positive Depression Screening Follow-up: Existing condition and In treatment Thrive Assessment: Date of Thrive Assessment Date Thrive assessed 09/26/24 09/26/24 13:29 Currently or been in a relationship where the following occur: No concerns reported Const General: no acute distress and alert HENMT Ears: TM's normal bilaterally and EAC's normal Throat: Yes posterior oropharynx normal and Yes tonsils normal (no TP congestion) Neck Neck: Yes no lymphadenopathy and Yes supple Thyroid: Thyroid normal Resp Auscultation: clear to auscultation bilaterally, no rales and no wheezes Cardio Rate: regular rate Rhythm: regular rhythm Heart sounds: no murmurs GI Palpation (GI): Soft to palpation and nontender Auscultation: normal bowel sounds General: Yes no CVA tenderness Back/Spine/Pelvis Back: no CVA tenderness Thoracic/Lumbar Spine: lumbar spinal tenderness (mild) Skin Rashes: no rashes Extrem General: Yes no clubbing, cyanosis or edema Results Reviewed Results Reviewed: Laboratory Tests 08/24/24 08/24/24 14:06 14:15 WBC 8.2 Hgb 11.7 L Hct 34.1 L Plt Count 304 Sodium 137 Potassium 5.2 H Creatinine 1.55 H Estimated GFR 45 Fasting Glucose 207 H Hemoglobin A1c % 8.9 H Calcium 9.2 AST 16 ALT 17 Triglycerides 258 H Cholesterol 200 H LDL Cholesterol, Calc 123 H HDL Cholesterol 26 L Prostate Specific Ag 1.37 Vitamin B12 1449 H 25-OH Vitamin D Total 41.3 TSH 1.07 Ur Specific [place] 1.025 Urine Protein 100 (2+) H Urine Glucose (UA) 100 H Urine Blood Negative Urine Nitrite Negative Ur Leukocyte Esterase Negative Microalb/Creat Ratio 536.9 H Coding Level of Care Code Est Pt Level 4 (13247) Complex EM visit Add On G2211 Diagnoses Type 2 diabetes mellitus with stage 3b chronic kidney disease, with long-term current use of insulin E11.22; N18.32; Z79.4 Stage 3a chronic kidney disease N18.31 Chronic kidney disease stage 3 subtype: stage 3a (GFR 45-59) Neuropathy G62.9 Mixed hyperlipidemia E78.2 Benign essential hypertension I10 Obstructive sleep apnea G47.33 Crohn's disease with complication, unspecified gastrointestinal tract location K50.919 Digestive disease complication type: unspecified complication Gastrointestinal tract location: unspecified location Constipation, unspecified constipation type K59.00 Constipation type: unspecified constipation type Primary insomnia F51.01 Insomnia type: primary Anxiety F41.9 Episode of recurrent major depressive disorder, unspecified depression episode severity F33.9 Active/Remission status: currently active Depression Type: major depressive disorder Major depression episode severity: unspecified Major depression recurrence: recurrent Overweight (BMI 25.0-29.9) E66.3 Additional Codes PHQ-9 - 85938 - PHQ-9 Billing: Yes ([id number]) Assessment & Plan Assessment & Plan (1) Type 2 diabetes mellitus with stage 3b chronic kidney disease, with long-term current use of insulin: Code(s): E11.22 - Type 2 diabetes mellitus with diabetic chronic kidney disease; N18.32 - Chronic kidney disease, stage 3b; 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 Burnham for his diabetes management (2) Chronic kidney disease (CKD), stage III (moderate): Code(s): N18.30 - Chronic kidney disease, stage 3 unspecified Category: Medical Qualifiers: Chronic kidney disease stage 3 subtype: stage 3a (GFR 45-59) Qualified Code(s): N18.31 - Chronic kidney disease, stage 3a Plan: His renal function appears to be gradually progressing again lately, likely due to his poor glycemic control Will continue to monitor his renal function regularly/closely (3) Neuropathy: Code(s): G62.9 - Polyneuropathy, unspecified Category: Medical Plan: Continue Oxycodone 5 mg Q 4 to 6 hours PRN only for severe pain - Rx refilled (4) Mixed hyperlipidemia: Code(s): E78.2 - Mixed hyperlipidemia Category: Medical Plan: Results of his labs done last month reviewed and discussed with patient - his cholesterol levels have improved slightly from previous but are not yet at goal Reinforced low cholesterol diet He was on Rosuvastatin 10 mg QD in the past but Rx was held when he was on Daptomycin for his osteomyelitis a few months ago (he had some unrecalled problems with Atorvastatin in the past but is tolerating Rosuvastatin with no issues) He has since resumed taking his Rosuvastatin 10 mg QD Will recheck his labs and fasting lipids in 3 months for follow up (5) Benign essential hypertension: Code(s): I10 - Essential (primary) hypertension Category: Medical Plan: Reinforced low sodium diet - goal is systolic BP of at least 120 to 130 mm or less Continue Irbesartan 300 mg QD and Amlodipine 5 mg QD He used to also take HCTZ 12.5 mg QD in the past but this was discontinued at some point, likely when he presented to the hospital with DELVIS a few months ago He is reminded to continue monitoring his blood pressure regularly (6) Obstructive sleep apnea: Code(s): G47.33 - Obstructive sleep apnea (adult) (pediatric) Category: Medical Plan: He was diagnosed with HERSON last year and is now on CPAP therapy when he sleeps at night Follow up with Sleep Medicine as scheduled (7) Crohn's disease: Code(s): K50.90 - Crohn's disease, unspecified, without complications Category: Medical Qualifiers: Digestive disease complication type: unspecified complication Gastrointestinal tract location: unspecified location Qualified Code(s): K50.919 - Crohn's disease, unspecified, with unspecified complications Plan: Currently stable with no recent flare ups He was on Lialda 1.2 mg 2 tablets daily in the past but he stopped taking it a while back as he could not afford the cost of the Rx Follow up with GI (Dr. Rush) as scheduled (8) Constipation: Code(s): K59.00 - Constipation, unspecified Category: Medical Qualifiers: Constipation type: unspecified constipation type Qualified Code(s): K59.00 - Constipation, unspecified Plan: Reinforced increased oral fluids and dietary fiber Continue Senna 8.6 mg 2 tablets Q HS PRN (9) Insomnia: Code(s): G47.00 - Insomnia, unspecified Category: Medical Qualifiers: Insomnia type: primary Qualified Code(s): F51.01 - Primary insomnia Plan: Sleep hygiene reinforced He is on Mirtazapine, which helps with his sleep at night He could not tolerate Trazodone in the past - states that he felt like a zombie the next day He has also tried 1/2 tablet of OTC Melatonin 10 mg - states that it also knocks him out but not as much as Trazodone did Advised that he can continue Melatonin if it helps and there should be no concerning long-term side effects from it, including any habit-forming potential (10) Anxiety: Code(s): F41.9 - Anxiety disorder, unspecified Category: Medical Plan: Continue Lorazepam 0.5 mg QD PRN (11) Depression: Code(s): F32.9 - Major depressive disorder, single episode, unspecified Category: Medical Qualifiers: Active/Remission status: currently active Depression Type: major depressive disorder Major depression episode severity: unspecified Major depression recurrence: recurrent Qualified Code(s): F33.9 - Major depressive disorder, recurrent, unspecified Plan: Continue Fluoxetine 60 mg QD and Mirtazapine 15 mg Q HS Follow up with psychiatry as scheduled (12) Overweight (BMI 25.0-29.9): Code(s): E66.3 - Overweight Category: Medical Plan: Reinforced diet; exercise and weight loss are unrealistic at this time given patient's recent osteomyelitis, toe amputation and other physical issues Plan Follow up in 3 months Orders: Orders Lipid Panel 3 Months E78.00 - Pure hypercholesterolemia, unspecified Comprehensive [place]. Panel Fast 3 Months E78.00 - Pure hypercholesterolemia, unspecified Hemoglobin A1c 3 Months E11.9 - Type 2 diabetes mellitus without complications UA CC w/rflx Micro + Cult 3 Months R30.0 - Dysuria Vitamin D 25-OH Total 3 Months E55.9 - Vitamin D deficiency, unspecified Vitamin B12 and Folate 3 Months E53.8 - Deficiency of other specified B group vitamins Complete Blood Count Auto Diff 3 Months D64.9 - Anemia, unspecified Microalbumin, Random (w Creat) 3 Months E11.9 - Type 2 diabetes mellitus without complications TSH reflex Free T4 3 Months E78.00 - Pure hypercholesterolemia, unspecified Medications: Resumed rosuvastatin 10 mg PO DAILY 90 days 90 tabs 1RF
--- OUTSIDE RECORDS SUMMARY | 2024-09-26 15:02 | XMS_ITS | Encounter Summary ---
Author Organization [facility] Address [address] [place] [address] Care Team Providers Care Artist And Repertoire Manager Name Role Phone Santi Castaneda MD Unavailable [phone] Marcelo Lopez MD Primary Care Provider [phone] Nico Smith MD Unavailable [phone] System, Provider Not In Unavailable Unavaila ble System, Provider Not In Unavailable Unavaila ble System, Provider Not In Unavailable Unavaila ble Encounter Details Date Type Department Care Team (Late st Contact Info) Description 04/25/2024 Scanned Document [facility] [address] [place] [address] [place] [address] [facility] [address] [place] [address] Social History Tobacco Use Types Packs/Day Years [...] on filedocumented in this encounter Care Teams Artist And Repertoire Manager Relationship Specialty Start Date End Date Marcelo Lopez MD [address] [place] [address] [address] [place] [address] PCP - General Internal Medicine 02/22/24 Santi Castaneda MD [address] [place] [id number] Surgery, Orthopedic 02/22/24 Nico Smith MD [address] [facility] [address] [place] [address] Physician Nephrology 02/22/24 System, Provider Not In 02/25/24 System, Provider Not In Infectious Disease 02/25/24 System, Provider Not In Neurology 02/25/24 documented as of this encounter
--- OUTSIDE RECORDS SUMMARY | 2024-09-26 15:03 | XMS_ITS | Encounter Summary ---
Author Organization [facility] Address [address] [place] [address] Care Team Providers Care Biometrician Name Role Phone Santi Castaneda MD Unavailable Marcelo Lopez MD Primary Care Provider [phone] Nico Smith MD Unavailable [phone] System, Provider Not In Unavailable Unavaila ble System, Provider Not In Unavailable Unavaila ble System, Provider Not In Unavailable Unavaila ble Encounter Details Date Type Department Care Team (Late st Contact Info) Description 04/12/2024 Scanned Document [facility] [address] [place] [address] [place] [address] [facility] [address] [place] [address] Social History Tobacco Use Types Packs/Day Years [...] on filedocumented in this encounter Care Teams Biometrician Relationship Specialty Start Date End Date Marcelo Lopez MD [address] [place] [address] [address] [place] [address] PCP - General Internal Medicine 02/22/24 Santi Castaneda MD [address] [place] [id number] Surgery, Orthopedic 02/22/24 Nico Smith MD [facility] [address] [place] [address] Physician Nephrology 02/22/24 System, Provider Not In 02/25/24 System, Provider Not In Infectious Disease 02/25/24 System, Provider Not In Neurology 02/25/24 documented as of this encounter
--- OUTSIDE RECORDS SUMMARY | 2024-09-26 15:03 | XMS_ITS | Clinical Summary ---
Author Organization [facility] Address [address] [place] [address] Care Team Providers Care Retail Loan Officer Name Role Phone Santi Castaneda MD Unavailable [phone] Marcelo Lopez MD Primary Care Provider [phone] Nico Smith MD Unavailable [phone] System, Provider Not In Unavailable Unavaila [...] by mouth daily. 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, partial amputation [facility]: Located in: [facility] Address: [facility], [address] [place] [address] 1 each 05/03/2024 Active SUPPLY DME MISCIndications:Pa in in right ankle and joints of right foot RIGHT FOOT CUSTOM NIGHT SPLINT DX: PLANTAR FASCIITIS [facility]: [address] [place] [address] 1 each 07/22/2024 Active celeCOXIB (CeleBREX) 200 [...] Date Type Department Care Team Description 08/02/2024 [facility] [address] [address] Santi Castaneda MD Chronic pain of left ankle 08/02/2024 [facility] [address] [address] Santi Castaneda MD Chronic pain of left ankle (Primary Dx) 07/22/2024 Orders Only [facility] [place] [address] Santi Castaneda MD Pain in right ankle and joints of right foot (Primary Dx) 07/12/2024 1:45 PM EST Office Visit [facility] [place] [address] Santi Castaneda MD Pain in right ankle [...] this topic Medical Devices Implanted Type Area [employer] Information Clerk Device Identifier Shelf Expiration Date Model / Serial / Lot 620-005 Filler Bone Void 5cc 12.5cc Calcium Slf Stimulan Rpd Cure - [id number] Implanted:Qty : 1 on 03/21/2024 by Santi Castaneda MD at [facility] Void Filler Right: Foot [employer] [id number] 11/12/2025 620-005 / / [id number] Procedures Procedure Name Priority Date/Time Associated Diagnosis [...] 65 - 99 mg/dL 03/24/2024 9:50 AM [facility] Comment:Fasting: <100 mg/dL, Non-Fasting: <200 mg/dL (ADA 2005) Blood Urea Nitrogen (BUN) 27(H) 8 - 21 mg/dL 03/24/2024 9:50 AM [facility] Creatinine 1.3 0.5 - 1.3 mg/dL 03/24/2024 9:50 AM [facility] eGFR 59(L) >59 03/24/2024 9:50 AM [facility] Comment:CKD-EPI (2020) in mL /min/1.73 sq meters. Sodium 135(L) 136 - 145 mmol/L 03/24/2024 9:50 AM [facility] Potassium 5.3 3.4 - 5.3 mmol/L 03/24/2024 9:50 AM [facility] Chloride 102 98 - 107 mmol/L 03/24/2024 9:50 AM [facility] CO2 23 22 - 33 mmol/L 03/24/2024 9:50 AM [facility] Anion Gap 10 7 - 17 03/24/2024 9:50 AM [facility] Calcium 9.1 8.7 - 10.5 mg/dL 03/24/2024 9:50 AM [facility] BUN/Creatinine Ratio 21 10.0 - 25.0 Ratio 03/24/2024 9:50 AM [facility] Blood (Plasma/Serum) 03/24/2024 9:02 AM EDT 03/24/2024 9:22 AM EDT [facility] LAB BLOOD ORDERABLES [address] [address], [address] [address] * (ABNORMAL) Hemoglobin A1c with Estimated Average Glucose (03/01/2024 3:23 PM EDT) Hemoglobin A1C 7.9(H) <5.7 % 03/02/2024 12:58 AM EDT [facility] Comment: A1c% ? Interpretation 5.7 - 6.0 ?Increase risk of diabetes 6.1 - 6.4 ?Higher risk of diabetes > or = 6.5 ?? Consistent with diabetes Diabetes Care, 33(Supp 1):S1-S61, 2010 Estimated Average Glucose 180 mg/dL 03/02/2024 12:58 AM EDT [facility] Blood Blood specimen / Unknown 03/01/2024 3:23 PM EDT 03/01/2024 9:36 PM EDT [facility] LAB BLOOD ORDERABLES Performing Organization Address City/State/[facility] Co de Phone Number [address] [address], [address] [address] from Last 3 Months or Most Recently Relevant to Health Maintenance Advance Directives Documents on File Type Date Recorded Patient Conveyor Attendant Expl anation Advance Directive-Scan 03/23/2024 [employer]ang [employer] PROXY FORM / / 03/23/2024 * Full Code (Latest Code Status on File) Date Activated Date Inactivated Comments 03/21/2024 1:41 PM * Full Code Date Activated Date Inactivated Comments 03/21/2024 8:35 AM 03/21/2024 1:41 PM Care Teams Retail Loan Officer Relationship Specialty Start Date End Date Marcelo Lopez MD [address] [place] [address] [address] [place] [address] PCP - General Internal Medicine 02/22/24 Santi Castaneda MD [address] [place] [address] Surgery, Orthopedic 02/22/24 Nico Smith MD [address] [facility] [address] [place] [address] Physician Nephrology 02/22/24 System, Provider Not In 02/25/24 System, Provider Not In Infectious Disease 02/25/24 System, Provider Not In Neurology 02/25/24
--- OUTSIDE RECORDS SUMMARY | 2024-09-26 15:03 | XMS_ITS | Data Portability ---
Author Organization [place] - [facility], Allergy Address [address] [place] [phone] Care Team Providers Care Prosthetic Dentist Name Role Phone BALDEV CARRANZA Primary Care Provider MARLEEN MATTHEW Referring Provider [phone] Assessment Encounter Date Assessment Date Assessment LastModified [...] mcg/actua tion nasal spray,ananda pension 024 024 DEBBIE Not available 14:28:43 Patient TargetsNo targets recorded. Patient InstructionsNo instructions recorded. Reason for Referral None Reported. Results Created Date Observation Date Name Description Value Unit Range Abnormal Flag Note LastModifiedBy Organization Detail LastModifiedTime 02/03/2010/04/2018 imagi ng/di agnos tic resul t No observ ation record ed. [email or web address] Not Available 02:14:37 02/03/20 24 04/01/2022 imagi ng/di agnos tic resul t No observ ation record ed. [email or web address] Not Available 02:15:03 02/03/20 24 04/01/2022 imagi ng/di agnos tic resul t No observ ation record ed. 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 23655776279 07 Active 2020 Leukoplak ia of oral mucosa, including tongue; Note: Date Diagnosed : 12/11/2020 1:41 PM (K13.21) Not Available [facility] 4 02:17:36 Allergic rhinitis caused by pollen 36735289 Active 2020 Allergic rhinitis due to pollen; Note: Date Diagnosed : 12/11/2020 1:41 PM (J30.1) Not Available [facility] 4 02:16:47 Sudden idiopathi c hearing loss 218800180 Active 2021 Sudden idiopathi c hearing loss, left ear; Note: Date Diagnosed : 2 12:36 PM (H91.22) Not Available [facility] 4 02:17:43 Problem Notes None recorded. Procedures Surgical History None recorded. Imaging Results Imaging Date Name Status [facility] Details LastModified Time 10/04/2018 imaging/diagno stic result completed Information not available 02/03/2024 02:14:37 04/01/2022 imaging/diagno stic result completed Information not available 02/03/2024 02:15:03 04/01/2022 imaging/diagno stic result completed Information not available 02/03/2024 02:15:05 04/28/2022 imaging/diagno stic result completed Information not available 02/03/2024 02:15:18 04/29/2022 imaging/diagno stic result completed Information not available 02/03/2024 02:15:19 05/21/2022 imaging/diagno stic result completed Information not available 02/03/2024 02:15:22 05/21/2022 audiogram completed Information not available 02/03/2024 02:15:23 05/21/2022 audiogram completed Information not available 02/03/2024 02:15:28 08/15/2022 audiogram completed Information not available 02/03/2024 02:15:32 Procedure Notes None recorded. Medical Equipment None Reported. Allergies Allergen ID Allergen Name Allergen Category Reaction Reaction Severity Criticality Documentation Date Start Date Code Code System Note Provider Name and Address Organization Details Recorded Time 33462 Product containin g penicilli n (product) medicatio n other Not available Not available 10/27/2023 73907 8001 SNOMED React ion: unkno wn, unspe cifie d;; Not Available [facility] 00:51:45 Medications Name Sig Start Date Stop Date Status Note LastModified by Organization Details LastModified Time atorvasta tin 40 mg tablet 02/01 completed Medicati on ID: [id number] B rand Name: atorvast atin Sen d [...] mg tablet 02/01 completed Medicati on ID: 513800 B rand Name: atenolol Send Method: E-Prescr ibed Sub s Allowed: subs OK Medic ationGen ericName : atenolol Not Available Not Available Not Available Lantus U-100 Insulin 100 unit/mL subcutane ous solution 2017 active Medicati on ID: 783517 B rand Name: Lantus U-100 Insulin Send Method: E-Prescr ibed Sub s Allowed: subs [place] [facility] L[facility]us U-100 Insulin Not Available [...] layed release 2017 active Medicati on ID: 974011 B rand Name: aspirin Send Method: E-Prescr ibed Sub s Allowed: subs [place] [facility] aspirin Not Available Not Available Not Available metformin 1,000 mg tablet TAKE 1 TABLET BY MOUTH TWICE DAILY active Not Available Not Available No t Available pyridoxin e (vitamin B6) 50 mg tablet TAKE 1 TABLET BY MOUTH DAILY active Not Available Not Available No t Available hydrochlo rothiazid e 25 mg tablet 02/01 completed Medicati on ID: 906420 B rand Name: hydrochl orothiaz fabrizio Send Method: E-Prescr ibed Sub s Allowed: subs [place] [facility] : hydrochl orothiaz fabrizio Not Available [...] both nostrils 02/01 completed Medicati on ID: 567178 D uration Value: 30 Prescri bed By [...] layed release 2017 active Medicati on ID: [id number] D uration Value: 30 Brand Name: omeprazo [...] Not Available No t Available Dexcom G6 Telephone Lineman USE DIRECTED active Not Available Not Available No t Available Dexcom G6 Transmitt er device USE TO TEST BLOOD SUGAR THREE TIMES DAILY active Not Available Not Available No t Available Vitals Date Recorded Body height Body mass index (BMI) Body weight Provider Name and Address Organization Details Last Updated DateTime 02/02/2024 185.42 cm 29.4 kg/m2 481477.1 g Dorothea Ogden [place] - [facility] 02/02/2024 13:59:38 Social History None recorded. [...] SNOMED-CT Code Diagnosis ICD10 Code Diagnosis Note [id number] VAN CASTILLO MD [facility] on [address] [place] [phone] 02/02/2024 13:49:07 02/02/2024 14:30:44 Posterior rhinorrhea 41108786 R09.82 I recommende d fluticason e for postnasal drip, follow-up if no improvemen t. Sudden idi opathic hearing loss 198090893 H91.22 Health Concerns Section Related Observation LastModified by Organization Detai ls LastModified Time None Recorded Concern Status LastModified by Organization Details LastModified Time None Recorded Advance Directives Directive None Recorded Payers Encounter Date Sequence Insurance Name Policy Number Policy Cesar Covered Member ID Cesar Member ID Guarantor Name 02/02/2024 1 [facility] (MEDICARE REPLACEMENT/A DVANTAGE - PPO) [id number] Johann Irwin [id number] Johann Irwin Notes Date Note Type Note [...] note some postnasal drip. VAN CASTILLO MD [address] [place] [address], [phone], [facility] - [facility] 02/06/2024 05:58:16
--- OUTSIDE RECORDS SUMMARY | 2024-09-26 15:03 | XMS_ITS | Clinical Summary ---
Author Organization [facility] Address [address] [place] [address] Phone Care Team Providers Care Fund Accountant Name Role Phone Marcelo Lopez MD Primary Care Provider [phone] Allergies Active Allergy Reactions Criticality Noted Date [...] or unspecified chronic kidney disease 02/21/202202/21 Immunizations Immunization Administration Dates Next Due Influenza Split High [...] Colorectal Cancer Screening: Sigmoidoscopy 2003 Pneumococcal Vaccine: 50+ Years (2 of 2 - PCV) 05/26/2017 05/26/2016 Diabetes: Ophthalmology Exam 02/21/2022 Diabetes: Pedal Pulse Checked 02/21/2022 Diabetes: Sensory Foot Exam 02/21/2022 Diabetes: Visual Foot Exam 02/21/2022 Diabetes: Hemoglobin A1C 05/31/2024 03/01/2024, 05/0 07/2021 Influenza Vaccine (Season Ended) 2025 03/20/2020, 04/25/2019, 03/16/2019, Additional history exists Pneumococcal Vaccine: Peds (0 to 5 Years) and At-Risk Patients (6 to 49 Years) Discontinued 05/26/2016 Hepatitis B Vaccine Aged Out No longe [...] 10.0 8.7 - 10.7 mg/dL eGFR Non-Afr Gambian 45 Hemoglobin A1C 6.2(A) 4.0 - 6.0 Triglycerides 293 Cholesterol, Total 230 10/14/2021 us Historical Provider LAB BLOOD ORDERABLES Mariluz l Result from Last 3 Months or Most Recently Relevant to Health Maintenance Insurance [facility] Choice ([id number]) [facility] Choice ([id number]) Care Teams Fund Accountant Relationship Specialty Start Date End Date Marcelo Lopez MD [address] [place] [address] PCP - General Internal Medicine 11/07/21
== END 2024-09-26 14:02 | disposition home or self-care (01) ==
LOC: HO.HMCH 13:08
PROVIDERS: PCP Internal Medicine; Visit Provider Internal Medicine
DX: I12.9 Hypertensive chronic kidney disease with stage 1 through stage 4 chronic kidney disease, or unspecified chronic kidney disease (principal); E11.22 Type 2 diabetes mellitus with diabetic chronic kidney disease; N18.32 Chronic kidney disease, stage 3b; Z79.4 Long term (current) use of insulin; N18.31 Chronic kidney disease, stage 3a; K50.919 Crohn's disease, unspecified, with unspecified complications; F33.9 Major depressive disorder, recurrent, unspecified; G62.9 Polyneuropathy, unspecified; E78.2 Mixed hyperlipidemia; G47.33 Obstructive sleep apnea (adult) (pediatric); K59.00 Constipation, unspecified; F51.01 Primary insomnia

== ENCOUNTER → 2024-09-26 13:08 | Outpatient (BNVA) | payer MEDICARE, MEDICAID, SELFPAY | PROVIDERS: PCP Internal Medicine; Visit Provider Internal Medicine | DX: E11.22 Type 2 diabetes mellitus with diabetic chronic kidney disease (principal); I12.9 Hypertensive chronic kidney disease with stage 1 through stage 4 chronic kidney disease, or unspecified chronic kidney disease; N18.30 Chronic kidney disease, stage 3 unspecified; G62.9 Polyneuropathy, unspecified; E78.2 Mixed hyperlipidemia; G47.33 Obstructive sleep apnea (adult) (pediatric); K50.919 Crohn's disease, unspecified, with unspecified complications; K59.00 Constipation, unspecified; F51.01 Primary insomnia; F41.9 Anxiety disorder, unspecified; F33.9 Major depressive disorder, recurrent, unspecified; E66.3 Overweight; E78.00 Pure hypercholesterolemia, unspecified; R30.0 Dysuria; E55.9 Vitamin D deficiency, unspecified; E53.8 Deficiency of other specified B group vitamins; D63.1 Anemia in chronic kidney disease; Z79.4 Long term (current) use of insulin; Z68.30 Body mass index [BMI] 30.0-30.9, adult | CPT/HCPCS: 96127; 99212 ==

== ENCOUNTER 2024-11-10 09:44 | Outpatient (REF) | payer MEDICARE, MEDICAID, SELFPAY ==
--- NOTE | ~2024-11-10 | US_ITS ---
CLINICAL HISTORY: R35.1 - Nocturia US Renal Comparison: 09/26/2022 02:37 PM EDT: [place]: US RENAL BI Findings: Right kidney normal size and echotexture, 11.3 cm length. Left kidney normal size and echotexture, 11.8 cm length. No hydronephrosis of either kidney. Normal color Doppler. Urinary bladder is unremarkable. Prevoid volume 148 mL. Postvoid volume 40 mL. Right ureteral jet is visualized. Left ureteral jet is not visualized during the exam. The prostate measures 4.7 x 4.6 x 4.3 cm. IMPRESSION: 1. No acute findings This document has been electronically signed by: Jose Pathak MD on 11/11/2024 08:45:42
--- OUTSIDE RECORDS SUMMARY | 2024-11-10 10:04 | XMS_ITS | Encounter Summary ---
Author Organization [facility] Address [address] [place] [address] Care Team Providers Care Buffing Machine Operator Semiautomatic Name Role Phone Santi Castaneda MD Unavailable Marcelo Lopez MD Primary Care Provider [phone] Nico Smith MD Unavailable [phone] System, Provider Not In Unavailable Unavaila ble System, Provider Not In Unavailable Unavaila ble System, Provider Not In Unavailable Unavaila ble Encounter Details Date Type Department Care Team (Late st Contact Info) Description 04/25/2024 Scanned Document [facility] [address] [place] [address] [place] [address] [facility] [address] [place] [address] Social History Tobacco Use Types Packs/Day Years [...] Assigned at Male 02/03/2024 10:35 AM EDT Legal Sex Male 6:20 PM EST Gender Identity Male 02/03/2024 10:35 AM EDT Sexual Orientation Other 02/03/2024 10 :35 AM EDT documented as of this encounter Plan of Treatment Not on file documented as of this encounter Visit Diagnoses Not on filedocumented in this encounter Care Teams Buffing Machine Operator Semiautomatic Relationship Specialty Start Date End Date Marcelo Lopez MD [address] [place] [address] [address] [place] [address] PCP - General Internal Medicine 02/22/24 Santi Castaneda MD [address] [place] [address] Surgery, Orthopedic 02/22/24 Nico Smith MD [address] [facility] [address] [place] [address] Physician Nephrology 02/22/24 System, Provider Not In 02/25/24 System, Provider Not In Infectious Disease 02/25/24 System, Provider Not In Neurology 02/25/24 documented as of this encounter
== END 2024-11-10 09:45 | disposition home or self-care (01) ==
LOC: HO.US 09:44
PROVIDERS: PCP Internal Medicine; Visit Provider Nurse Practitioner Family
DX: R35.1 Nocturia (principal); R80.9 Proteinuria, unspecified; R39.9 Unspecified symptoms and signs involving the genitourinary system; R33.9 Retention of urine, unspecified
CPT/HCPCS: 76770

== ENCOUNTER → 2024-11-10 09:47 | Outpatient (BNV) | payer MEDICARE, MEDICAID, SELFPAY | PROVIDERS: PCP Internal Medicine; Visit Provider Specialist | DX: R35.1 Nocturia (principal) | CPT/HCPCS: 76770 ==

== ENCOUNTER 2024-11-23 13:03 | Outpatient (REF) | payer MEDICARE, SELFPAY ==
[2024-11-23 17:05] LABS: Urine Cytology See Pathology rpt
== END 2024-11-23 13:04 | disposition home or self-care (01) ==
LOC: HO.LAB 13:03
PROVIDERS: PCP Internal Medicine; Visit Provider Nurse Practitioner Family
DX: R31.29 Other microscopic hematuria (principal)
CPT/HCPCS: 81003; 88112; 99212

== ENCOUNTER 2024-11-23 13:03 | Outpatient (AMB) | payer MEDICARE, SELFPAY ==
--- NOTE | 2024-11-23 13:14 | A.OFFVIS_ITS ---
Intake Visit Reasons: 3m/US/PSA Intake Note: Patient is present for 3m follow up/PSA/US * Imagig 11/10/24 * PSA:1.37 Urology Medication:vitamin b12,vitamin b6,sildenafil Antibiotic Allergy:penicillin Blood Thinner:aspirin PVR:0ml Bead Forming Machine Set Up Operator Required: No Allergies sertraline [SERTRALINE] Allergy (Severe, Verified 11/23/24 14:04) RASH, ABD PAIN DEHYDRATION Penicillins [PENICILLINS] Allergy (Intermediate, Verified 11/23/24 14:04) RASH Medication List - Last Reconciled 11/23/24 by ROMMEL Hernandez albuterol sulfate 90 mcg/actuation (Ventolin HFA) 2 puffs inhalation Q6H PRN 30 days amlodipine 5 mg PO DAILY 90 days aspirin (Adult Low Dose Aspirin) 81 mg PO DAILY [BATHTUB TRANSFER BENCH EXTENSION LEGS As directed] blood sugar diagnostic (Therabiol Verio test strips) As directed- in vitro 3 times a day blood-glucose sensor ([employer] G6 Sensor device) As directed blood-glucose transmitter ([employer] G6 Transmitter device) USE TO TEST BLOOD SUGAR THREE TIMES DAILY blood-glucose,box covering machine operator,cont ([employer] G6 Beater Out Leveling Machine) As directed bupropion HCl SR 200 mg PO QAM bupropion HCl XL 150 mg PO DAILY buspirone 5 mg PO BID cholecalciferol (vitamin D3) 250 mcg PO 2XW 90 days cyanocobalamin (vitamin B-12) 1,000 mcg PO DAILY fluoxetine 60 mg (3 x 20 mg) PO DAILY 30 days fluticasone propionate 50 mcg/actuation 1 spray intranasal DAILY insulin lispro (Humalog KwikPen (U-100) Insulin) Take 2 to 8 units SQ 4 times a day - with meals and at bedtime - PER SLIDING SCALE (see below for sliding scale details) Insulin as advised before meals 0-150: 0 unit 151-200: 2 units 201- 250: 4 units 251-300: 6 units 301-350: 8 units >351 call irbesartan 300 mg PO DAILY lancets (Therabiol Delica Lancets) As directed Lantus Solostar U-100 Insulin (insulin glargine) 70 units (0.7 mL) subcut DAILY NS melatonin 3 mg PO BEDTIME PRN mirtazapine 15 mg PO BEDTIME omeprazole 40 mg PO BID oxycodone 5 mg PO Q4-6H PRN pen needle, diabetic (Easy Touch) 1 ea miscellaneous BID 30 days pyridoxine (vitamin B6) 50 mg PO DAILY 30 days rosuvastatin 10 mg PO DAILY 90 days sennosides (senna) 17.2 mg PO DAILY [shower chair As directed] sildenafil 50 mg PO DAILY PRN trazodone 100 mg PO BEDTIME PRN 90 days HPI Comments Details: Johann is a very pleasant 69-year-old male patient of Dr. Lopez. He has a past medical history of type 2 diabetes, hyperlipidemia, obstructive sleep apnea, allergies, chronic kidney disease stage [address] Smith, obesity, depression, anxiety, insomnia, osteoarthritis, Crohn's disease, GERD, hypercholesteremia, and hypertension. He presents to the office today for follow-up. Of note, patient was seen approximately 3 months ago as a new patient for ongoing lower urinary tract symptoms he had been experiencing at which time a retroperitoneal ultrasound and PSA were ordered for further assessment evaluation. These results were reviewed and communicated with the patient today. 11/06 bilateral kidneys with no calculi or hydronephrosis. The urinary bladder is unremarkable. Prostate measures approximately 48 mLs. PSAs are as follows: PSA: 04/04 0.8, 10/05 0.8, 10/06 0.8, 09/06 1.4 He reports feeling episodes of nocturia have somewhat decreased as he has been attempting to limit fluids 2-3 hours prior to bed as discussed during last office visit. We discussed potential causes for lower urinary tract symptoms patient is experiencing as well as further treatment options and risks and benefits of these treatment options. Patient reports that although he has been experiencing these lower urinary tract symptoms he does feel they are manageable at this time and would like to continue with surveillance monitoring. We discussed importance of continuing to follow-up with provider engagement executive Dr. Smith for proteinuria. In office urinalysis results reviewed with the patient today. PVR 0 mL. He denies hematuria, dysuria, foul smelling urine, flank pain, fever, and or chills. We discussed healthy bathroom behaviors as well as bladder triggers/irritants. [facility] Medical History Overweight (BMI 25.0-29.9) Type 2 diabetes mellitus with stage 3b chronic kidney disease, with long-term current use of insulin Mixed hyperlipidemia Obstructive sleep apnea Memory impairment Environmental allergies Chronic kidney disease (CKD), stage III (moderate) Prostate cancer screening H/O hyperkalemia Recurrent cough Obesity (BMI 30-39.9) Depression Anxiety Insomnia Primary osteoarthritis, left shoulder Crohn's disease GERD (gastroesophageal reflux disease) Pure hypercholesterolemia Benign essential hypertension Microalbuminuria intermediate (current) use of insulin Type 2 diabetes mellitus with diabetic polyneuropathy Allergic rhinitis Surgical History Hx of foot surgery (11/05/23) History of esophagogastroduodenoscopy (EGD) Hx of colonoscopy History of umbilical hernia repair Family History Father Diabetes Melanoma Mother Diabetes Hypertension Cancer Sister Diabetes Social History Household Members: None Housing: Apartment Do you presently have visiting nurse or other home services: No Alcohol intake: former Patient Tobacco Use Status: Former Tobacco user Tobacco use type: Cigarette e-Cigarette/Vaping Use: Never Used Second Hand Smoke Exposure: No service: No Current occupational status: employed Cognitive needs: No Hearing needs: No Vision needs: No Review of Systems Const Reports no additional complaints Eyes Reports no additional complaints Card Reports as per HPI Resp Reports as per HPI GI Reports no additional complaints Reports as per HPI Musc Reports as per HPI Neuro Reports no additional complaints Psych Reports as per HPI Endo Reports as per HPI Physical Exam Const General: cooperative, healthy appearing, comfortable, no acute distress, well developed, alert and awake Nutritional Appearance: overweight Orientation/consciousness: patient oriented x3 Limitations: ambulation with cane HEENT Head: Yes normal to inspection, Yes normocephalic and Yes atraumatic Ears: hearing grossly normal bilaterally Eyes General: appearance normal, both eyes and all related structures Neck Neck: Yes normal visual inspection and Yes trachea midline Chest Chest palpation & inspection: normal inspection of the chest Resp Effort & Inspection: normal respiratory effort and able to speak in complete sentences Cardio Rate: regular rate GI Inspection: Yes normal to inspection General: Yes no CVA tenderness Back/Spine/Pelvis Back: no CVA tenderness Skin General skin exam: no rashes or lesions noted Neuro General: patient oriented x3 Extrem General: Yes normal to inspection Psych Appearance: grossly normal and well kempt Mental Status: mental status grossly normal Speech and movement: Normal speech and movement present and Clear speech present Affect: normal affect Attitude: cooperative Thought process: Normal thought process present Thought content: Normal thought content present Insight: Fair insight present (Psych) Judgement: Fair judgement present (Psych) Results AMB Urinalysis, Automated UA Leukoctes 0 Juan F/uL Last Edit by Lida Choi on 11/23/24 13:31 UA Nitrite Negative Last Edit by Lida Choi on 11/23/24 13:31 UA Urobilinogen 3.5 mg/dL Last Edit by Lida Choi on 11/23/24 13:31 UA Protein 3.0 mg/dL Last Edit by Lida Choi on 11/23/24 13:31 UA pH 6.0 Last Edit by Lida Choi on 11/23/24 13:31 UA Blood 10 Stevie/uL Last Edit by Lida Choi on 11/23/24 13:31 UA Specific [place] 1.015 Last Edit by Lida Choi on 11/23/24 13:31 UA Ketone Negative Last Edit by Lida Choi on 11/23/24 13:31 UA Bilirubin 0 mg/dL Last Edit by Lida Choi on 11/23/24 13:31 UA Glucose 60 mg/dL Last Edit by Lida Choi on 11/23/24 13:31 Results Reviewed Results Reviewed: Laboratory Last Values Urine pH (Auto) 6.0 11/23/24 08:22 Specific [place] (Auto) 1.015 11/23/24 08:22 Urine Protein (Auto) 3.0 mg/dL 11/23/24 08:22 Glucose (UA)(Auto) 60 mg/dL 11/23/24 08:22 Urine Ketones (Auto) Negative 11/23/24 08:22 Urine Blood (Auto) 10 Stevie/uL 11/23/24 08:22 Urine Nitrite (Auto) Negative 11/23/24 08:22 Urine Bilirubin (Auto) 0 mg/dL 11/23/24 08:22 Urine Urobilinogen (Auto) 3.5 mg/dL 11/23/24 08:22 Leukocyte Esterase (Auto) 0 Juan F/uL 11/23/24 08:22 Date of Service: 11/10/24 Procedure(s): US retroperitoneal comp Findings: Right kidney normal size and echotexture, 11.3 cm length. Left kidney normal size and echotexture, 11.8 cm length. No hydronephrosis of either kidney. Normal color Doppler. Urinary bladder is unremarkable. Prevoid volume 148 mL. Postvoid volume 40 mL. Right ureteral jet is visualized. Left ureteral jet is not visualized during the exam. The prostate measures 4.7 x 4.6 x 4.3 cm. IMPRESSION: 1. No acute findings Assessment & Plan Assessment & Plan (1) Microhematuria: Code(s): R31.29 - Other microscopic hematuria Category: Medical Plan In office urinalysis results reviewed with the patient today; as noted above. PVR 0 mL We discussed follow-up with Dr. Smith his provider engagement executive for ongoing proteinuria and his chronic kidney disease We discussed the importance of management and diabetes for improvement in lower urinary tract symptoms as well as overall health and well-being. Continue limiting fluids 2-3 hours prior to bed to decrease episodes of nocturia. Will continue with surveillance monitoring. Recent retroperitoneal ultrasound results reviewed with the patient today; as noted above. Recent PSA results reviewed with the patient today; as noted above. We discussed importance of compliance with CPAP Follow-up in 6 months with PVR; or sooner with any issues, concerns, and or questions. Orders: Orders AMB Urinalysis Automated Today Z13.9 - Encounter for screening, unspecified Urine Cytology Today R31.29 - Other microscopic hematuria Patient Instructions: The patient had an opportunity to ask questions regarding the treatment plan. All questions were answered. Physical exam, labs, and imaging were discussed and reviewed in detail. As well as risks, benefits, and discussion of treatment choices. No major barriers to understanding were identified. The patient expressed understanding and agreement with the above treatment plan. The patient was made aware they should contact our office by phone for worsening of their current condition, the appearance of new symptoms, or with any questions or concerns. Compliance is encouraged with any medications and follow up testing that is ordered. It is a privilege to be allowed the opportunity to participate in? your urological care.? Again, if you have any questions or concerns If you have any questions or concerns please do not hesitate to contact me. The office is [phone]. This note is constructed using voice recognition software. While every effort has been made to ensure accuracy drugless physician errors may have been included. Yours sincerely, Hailee Mills, RONNIE-BC Coding Level of Care Code Est Pt Level 3 (77787) Complex EM visit Add On G2211 Diagnoses Microhematuria R31.29
--- OUTSIDE RECORDS SUMMARY | 2024-11-23 14:39 | XMS_ITS | Encounter Summary ---
Author Organization [facility] Address [address] [place] [address] Care Team Providers Care Business Process Architect Name Role Phone Santi Castaneda MD Unavailable Marcelo Lopez MD Primary Care Provider [phone] Nico Smith MD Unavailable [phone] System, Provider Not In Unavailable Unavaila ble System, Provider Not In Unavailable Unavaila ble System, Provider Not In Unavailable Unavaila ble Encounter Details Date Type Department Care Team (Late st Contact Info) Description 04/25/2024 Scanned Document [facility] [address] [place] [address] [place] [address] [facility] [address] [place] [address] Social History Tobacco Use Types Packs/Day Years [...] on filedocumented in this encounter Care Teams Business Process Architect Relationship Specialty Start Date End Date Marcelo Lopez MD [address] [place] [address] [address] [place] [address] PCP - General Internal Medicine 02/22/24 Santi Castaneda MD [address] [place] [id number] Surgery, Orthopedic 02/22/24 Nico Smith MD [address] [facility] [address] [place] [address] Physician Nephrology 02/22/24 System, Provider Not In 02/25/24 System, Provider Not In Infectious Disease 02/25/24 System, Provider Not In Neurology 02/25/24 documented as of this encounter
== END 2024-11-23 14:00 | disposition home or self-care (01) ==
LOC: HO.HUSH 13:04
PROVIDERS: PCP Internal Medicine; Visit Provider Nurse Practitioner Family
DX: R31.29 Other microscopic hematuria (principal); Z13.9 Encounter for screening, unspecified
CPT/HCPCS: 99213; G2211

== ENCOUNTER → 2024-12-09 10:00 | Outpatient (BNVA) | payer MEDICARE, SELFPAY | PROVIDERS: PCP Internal Medicine | DX: Z13.89 Encounter for screening for other disorder (principal) ==

== ENCOUNTER 2025-01-19 11:07 | Outpatient (AMB) | payer MEDICARE, MEDICAID, SELFPAY ==
--- NOTE | 2025-01-19 11:11 | A.OFFVIS_ITS ---
Vital Signs 01/19/25 11:13 Height 6 ft 1 in Weight 231 lb 7.766 oz BMI 30.5 BP 127/69 Blood Pressure Location Lt brachial Position Sitting Pulse 76 Intake Visit Reasons: Anemia Intake Note: Johann presents in the office as a follow up for Anemia. CC: States that he is not having any concerns and no known active bleeding. 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 Allergies sertraline (SERTRALINE) Allergy (Severe, Verified 01/19/25 11:13) RASH, ABD PAIN DEHYDRATION Penicillins (PENICILLINS) Allergy (Intermediate, Verified 01/19/25 11:13) RASH Medication List - Last Reconciled 01/19/25 by Miller Rush MD albuterol sulfate 90 mcg/actuation (Ventolin HFA) 2 puffs inhalation Q6H PRN 30 days amlodipine 5 mg PO DAILY 90 days aspirin (Adult Low Dose Aspirin) 81 mg PO DAILY atenolol 50 mg PO DAILY [BATHTUB TRANSFER BENCH EXTENSION LEGS As directed] blood sugar diagnostic ([employer] Verio test strips) As directed- in vitro 3 times a day blood-glucose sensor ([employer] G6 Sensor device) As directed blood-glucose transmitter ([employer] G6 Transmitter device) USE TO TEST BLOOD SUGAR THREE TIMES DAILY blood-glucose,occupational therapist assistants,cont ([employer] G6 Bar Tacker Sewing Machine) As directed bupropion HCl XL 150 mg PO DAILY buspirone 5 mg PO BID celecoxib mg PO BID cholecalciferol (vitamin D3) 250 mcg PO 2XW 90 days cyanocobalamin (vitamin B-12) 1,000 mcg PO DAILY fluoxetine 60 mg (3 x 20 mg) PO DAILY 30 days fluticasone propionate 50 mcg/actuation 1 spray intranasal DAILY insulin lispro (Humalog KwikPen (U-100) Insulin) Take 2 to 8 units SQ 4 times a day - with meals and at bedtime - PER SLIDING SCALE (see below for sliding scale details) Insulin as advised before meals 0-150: 0 unit 151-200: 2 units 201- 250: 4 units 251-300: 6 units 301-350: 8 units >351 call lancets ([employer]ollito[employer]gles Lancets) As directed Lantus Solostar U-100 Insulin (insulin glargine) 70 units (0.7 mL) subcut DAILY NS melatonin 3 mg PO BEDTIME PRN mirtazapine 15 mg PO BEDTIME omeprazole 40 mg PO BID oxycodone 5 mg PO Q4-6H PRN pen needle, diabetic (Easy Touch) 1 ea miscellaneous BID 30 days pyridoxine (vitamin B6) 50 mg PO DAILY 30 days rosuvastatin 10 mg PO DAILY 90 days sennosides (senna) 17.2 mg (2 x 8.6 mg) PO DAILY PRN 90 days [shower chair As directed] sildenafil 50 mg PO DAILY PRN trazodone 100 mg PO BEDTIME PRN 90 days HPI HPI Anemia: Details: GI clinic visit for this 69-year-old male for FU of IBD (started on Lialda since Jun 2018), diverticulosis, history of colon polyps and fatty liver. CHRONIC ILLNESSES:?GERD, Type II diabetes-uncontrolled, Hypertension, Insomnia, Fatty liver, normal gallbladder (US 01/25), Diarrhea x 1 yr (noted 02/25), ? ? ? TUBULAR ADENOMAS 2009, ED, Epigastric abdominal pain, anemia, FHx: IBD, Stress at work, Hyperlipidemia LDL goal < 100 TODAY'S VISIT Had a toe amputation last year Can have abd pain once in a while - usually diet related and resolves in a day Has a BM once a day with intermittent straining and hard stools, no blood Can have diarrhea once in a great while Takes senna daily No ETOH over the past 3 years and 9 months PAST VISIT: Has a BM 2-3 times a day with passage of soft stools without blood or mucous. Unable to recall when he stopped taking the Lialda (unable to take since not covered by his insurance). Denies recurrent symptoms of diarrhea, heartburn or dysphagia. Denies constipation and has been going regularly without a problem. Takes Senna once a day. Pt denies feeling lightheaded or dizzy. Stopped drinking 10 weeks ago and is feeling much better. Ran out of Lialda a month ago and unable to refill due to high copay. Notes bloating and increased burping. Notes cough in the am and if he coughs too much, he will throw up. Takes Omeprazole once a day for GERD. No appetite. No BM in 3 days and had a BM today - regular He had to take some immodium a few days ago He was having watery stools (5-6 in 2 hrs) a few days ago. Denies blood or mucous in the stool. Doing good. ? Crohn's acts up once in a while related to diet. ? Can have 2-3 non-bloody BM's a day. ? Once in a while he can get diarrhea - usually food related - fast food or hamburgers, ? Has not been taking spicy foods. ? Denies abdominal pain. ? Has two formed BMs a day ? Appetite is fine and weighs 233 lbs. ? Has a normal BM once a day or every other ? Denies problems with diarrhea or rectal bleeding. ? Gas has improved. ? Nausea has resolved. ? No diarrhea since he started taking the Lialda. ? Taking Lialda 2 tablets daily - co-pay is $ 50 per jhontaan ? LABS IN [facility]: 01/04/20 H & H of 12.2 and 36.2, Plt 287, ? Na 131, K 5.1, BUN 15, Cr 1.26, normal LFTs, CRP 0.08 ? 05/2018 Vitamin B 12 279 ? November,: Negative serologies for celiac sprue. IMAGING STUDIES:? 04/[address] SCAN SHOWED: 1.? No acute intra-abdominal or intrapelvic abnormalities. No evidence of active Crohn's disease. 2.? Moderate volume of stool throughout the colon. 3.? Mild colonic diverticulosis without evidence of acute diverticulitis. 4.? Mild prostatomegaly. ENDOSCOPIC STUDIES: 04/2021 EGD AND COLON SHOWED: Endoscopy Findings: STOMACH: Mild antral gastritis DUODENUM: Biopsies obtained from 3rd part of duodenum to check for UGI Crohn's disease. Colonoscopy Findings: No polyps were detected. Normal TI. Inactive colitis throughout the colon - no ulcers or erythema noted Random biopsies obtained from the TI, right colon, left colon and rectum. Moderate diverticulosis seen in the left colon Moderate hemorrhoids on retroflexed exam. No source found for nausea and decreased appetite. No evidence of active Crohn's disease on colonoscopy today. Of note CRP and fecal calprotectin was normal and MRE did not show evidence of small bowel disease Plan:? Repeat Colonoscopy interval based on path results - in 5 years due to hx of Crohn's disease. Above findings were reviewed with the patient and Gastritis and diverticulosis handouts were given in the discharge area. Pt was advised to monitor his symptoms for now (since he has been off medications for Crohn's disease x past 3 mon Jun, 2018: Repeat colon showed: Colonoscopy Findings: ? No polyps were seen. Colitis noted on past colonoscopy has resolved. Patient had inactive colitis ? throughout the colon - random biopsies obtained from the right and left colon ? Moderate diverticulosis seen in the sigmoid colon ? Small hemorrhoids on retroflexed exam. ? Plan: Await pathology results Continue present medications (Lialda PO once daily) - patient notes resolution of diarrhea Patient has an appointment on 07/26/18 in the GI Clinic with GENNA Loera. Repeat Colonoscopy interval based on path results in 5 years due to diagnosis of IBD. ? Biopsies showed: ? A. Colon, right, biopsy: Colonic mucosa within normal limits. ? B. Colon, left, biopsy: Chronic inactive colitis. ? COMMENT: No dysplasia or granulomata are seen. IBD SUMMARY YEAR OF DIAGNOSIS: 2018 DISEASE EXTENT:? Pancolitis LAST COLONOSCOPY FINDINGS:Jun, 2018 No polyps were seen. Colitis noted on past colonoscopy has resolved. Patient had inactive colitis ?throughout the colon - random biopsies obtained from the right and left colon ?Moderate diverticulosis seen in the sigmoid colon NEXT COLON DUE: Jun, 2023 EXTRAINTESTINAL MANIFESTATIONS:? None GI SURGERY:? umbilical hernia repair 1994 PAST TREATMENTS:? Lialda CURRENT THERAPY:?Lialda Tablet Delayed Release, 1.2 GM, 2 tablets, Orally, Once a day PFSH Medical History Overweight (BMI 25.0-29.9) Type 2 diabetes mellitus with stage 3b chronic kidney disease, with long-term current use of insulin Mixed hyperlipidemia Obstructive sleep apnea Memory impairment Environmental allergies Chronic kidney disease (CKD), stage III (moderate) Prostate cancer screening H/O hyperkalemia Recurrent cough Obesity (BMI 30-39.9) Depression Anxiety Insomnia Primary osteoarthritis, left shoulder Crohn's disease GERD (gastroesophageal reflux disease) Pure hypercholesterolemia Benign essential hypertension Microalbuminuria USP (current) use of insulin Type 2 diabetes mellitus with diabetic polyneuropathy Allergic rhinitis Surgical History Hx of foot surgery (11/05/23) History of esophagogastroduodenoscopy (EGD) Hx of colonoscopy History of umbilical hernia repair Family History Father Diabetes Melanoma Mother Diabetes Hypertension Cancer Sister Diabetes Social History Household Members: None Housing: Apartment Do you presently have visiting nurse or other home services: No Alcohol intake: former Patient Tobacco Use Status: Former Tobacco user Tobacco use type: Cigarette e-Cigarette/Vaping Use: Never Used Second Hand Smoke Exposure: No service: No Current occupational status: employed Cognitive needs: No Hearing needs: No Vision needs: No Review of Systems Const All systems reviewed & are unremarkable except as noted in HPI and below Physical Exam Vital Signs: Last Vital Signs Pulse 76 01/19/25 11:13 BP 127/69 01/19/25 11:13 BMI result Body Mass Index 30.5 Const General: no acute distress Nutritional Appearance: obese Orientation/consciousness: patient oriented x3 Limitations: ambulation with cane HEENT Head: Yes normal to inspection Ears: hearing grossly normal bilaterally Eyes Sclerae: sclerae normal Pupils: Equal, round and reactive pupils present Neck Neck: Yes normal visual inspection Chest Chest palpation & inspection: normal inspection of the chest Resp Effort & Inspection: normal respiratory effort Auscultation: clear to auscultation bilaterally Cardio Palpation: normal PMI Rate: regular rate Rhythm: regular rhythm Heart sounds: S1 normal heart sound present, S2 normal heart sound present and no murmurs GI Palpation (GI): Soft to palpation, nontender and No hepatosplenomegaly present Auscultation: normal bowel sounds Rectal Exam - Male: Yes deferred Skin General skin exam: no rashes or lesions noted Neuro General: patient oriented x3, gait normal and moves all extremities Cranial nerves: Yes Equal, round and reactive pupils present Psych Appearance: grossly normal Mental Status: mental status grossly normal Assessment & Plan Assessment & Plan (1) Crohn's disease: Code(s): K50.90 - Crohn's disease, unspecified, without complications Category: Medical Qualifiers: Gastrointestinal tract location: unspecified location Digestive disease complication type: unspecified complication Qualified Code(s): K50.919 - Crohn's disease, unspecified, with unspecified complications Plan 69 YM with GERD, Type II diabetes-uncontrolled, Hypertension, Insomnia, Fatty liver, normal gallbladder (US 01/25), Diarrhea x 1 yr (noted 02/25), tubular adenomas 2008, anemia, FHx: Crohn's disease, Hyperlipidemia LDL goal < 100 IBD SUMMARY YEAR OF DIAGNOSIS: 2018 DISEASE EXTENT:? Pancolitis LAST COLONOSCOPY:2020 NEXT COLON DUE: 04/2026 EXTRAINTESTINAL MANIFESTATIONS:? None GI SURGERY:? umbilical hernia repair 1994 PAST TREATMENTS:? Lialda CURRENT THERAPY:?Lialda Tablet Delayed Release, 1.2 GM, 2 tablets, Orally, Once a day Pt was diagnosed with IBD in 12/2017 (likely Crohn's colitis) seen for right sided abdominal pain. 12/30 Colonoscopy showed Diffuse edema, erythema and ulcerations throughout the colon - right colon appeared more inflamed than the left - Inflammation resolved with Lialda. Repeat colonoscopy in June 2018 confirmed resolution of inflammation. Patient was advised to continue Lialda 2 tablets daily. Lab evaluation revealed persistent anemia raising concern for possible small bowel Crohn's disease. An MR enterography was normal. Pt discontinued Lialda a month ago since he ran out.? he is unable to refill it since it costs him $250 due to a high deductable 02/2021 EGD and colonoscopy was performed and results as noted above. Patient was advised to have labs and an EKG (bradycardia) checked today and schedule a FU appt with his PCP - FU with PCP scheduled on 07/01/22 Pt called with lab results (showed improvement in anemia and increase in Cr) and EKG (sinus bradycardia) results were reviewed with him Sees Dr Smith in Nephrology and advised to FU with Dr Smith and PCP Advised to go to [facility] walkin clinic if he notes any dizziness. 01/22/23 Pt has not been taking Lialda since it is not covered by his insurance. Pt denies diarrhea or bloody stools. He was advised to have his stool checked for fecal calprotectin - if normal will hold off treatment for Crohn's disease Pt advised to discuss decreasing dose of atenolol with his PCP at his FU appt on 02/02/23 (noted to have bradycardia and hyperkalemia) Message sent to PCP. 01/19/25 Can have abd pain once in a while - usually diet related and resolves in a day Has a BM once a day with intermittent straining and hard stools, no blood Can have diarrhea once in a great while Advised to continue Omeprazole 40 mg twice daily for GERD and senna 2 tab daily for constipation FU in 6 months Orders: Orders Calprotectin, Fecal Today K50.919 - Crohn's disease, unspecified, with unspecified complications IRON PROFILE Today K50.919 - Crohn's disease, unspecified, with unspecified complications C Reactive Protein Today K50.919 - Crohn's disease, unspecified, with unspecified complications Complete Blood Count no Diff Today K50.919 - Crohn's disease, unspecified, with unspecified complications Ferritin Today K50.919 - Crohn's disease, unspecified, with unspecified complications Coding Level of Care Code Est Pt Level 4 (36472) Diagnoses Crohn's disease with complication, unspecified gastrointestinal tract location K50.919 Gastrointestinal tract location: unspecified location Digestive disease complication type: unspecified complication Time Spent (min) 23
[2025-01-19 11:13] VITALS: BP 127/69; PULSE 76; BMI 30.5
--- OUTSIDE RECORDS SUMMARY | 2025-01-19 11:44 | XMS_ITS | Encounter Summary ---
Author Organization [facility] Address [address] [place] [address] Phone Care Team Providers Care Supervisor Wall Mirror Department Name Role Phone Marcelo Lopez MD Primary Care Provider [phone] Reason for Visit * Reason Comments Medication Refill Encounter Details Date Type Department Care Team (Late st Contact Info) Description 01/17/2025 Refill [facility] [address] [place] [address] [place] [address] Aravind Brunham, DO [address] [place] [phone] [email or web address] Medication Refill Social History Tobacco Use Types Packs/Day Years [...] on file documented as of this encounter Progress Notes * Rocio Russell MA - 01/17/2025 12:49 PM EDT Rx Care Gap Status - Instructions for Clinical Staff (prescriber discretion applies): > Mismatch review guide > At least one request does not meet full criteria. Specifics below. > Labs due: Please remind patient. > Orders needed: Click OPA and Accept to open SmartSet. A1c BMP - Needs order * Lipid panel Visit Info Last visit: 09/29/2024 Aravind Burnham DO - Endocrinology [facility] > Requested f/u: Return in about 3 months (around 12/29/2024) for Diabetes. Upcoming visit: 02/10/2025 Aravind Burnham DO - Endocrinology [facility] ACTIONS TAKEN BY Rocio Russell MA - Labs needed - Teed up orders and/or reminded pt. Diabetes Rx Protocol (on Diabetes Registry) - insulin glargine,hum.rec.anlog Criteria not met; renew for up to 3 months. Visit in the past 14 months: Yes Clinical criteria: - BMP within past year: No - A1c within past 6 months: None (has active order) - Lipid panel within past year: None (has active order) (No prior value) - Urine microalbumin within past year or on YUKO/ARB: Yes Lab Results Component Value Date SODIUM 123 (L) 12/18/2018 POTASSIUM 5.3 (H) 12/18/2018 CHLORIDE 90 (L) 12/18/2018 CO2 24 12/18/2018 BUN 16 12/18/2018 CREATININE 1.10 12/18/2018 EGFR 71 12/18/2018 Lab Results Component Value Date HEMOGLOBIN A1C 7.9 (H) 03/01/2024 Health Maintenance Labs Due / Due Soon Topic Date Due POTASSIUM LEVEL 12/19/2019 HEMOGLOBIN A1C 08/29/2024 documented in this encounter Plan of Treatment Upcoming Encounters Date Type Department Care Team (Late st Contact Info) Description 02/10/2025 9:10 AM EDT Office Visit [facility] [address] [place] [phone] Aravind Burnham DO [address] [place] [phone] [email or web address] documented as of this encounter Visit Diagnoses Diagnosis Type 2 diabetes mellitus with diabetic polyneuropathy, with long-term current use of insulin 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, with long-term current use of insulin Type 2 diabetes mellitus with hyperglycemia, with long-term current use of insulin Type 2 diabetes mellitus with diabetic microalbuminuria, with long-term current use of insulin documented in this encounter Care Teams Supervisor Wall Mirror Department Relationship Specialty Start Date End Date Marcelo Lopez MD [address] [place] [address] [place] [address] PCP - General Internal Medicine 12/18/18 documented as of this encounter Additional Source Comments The information contained in this document represents components of the legal health record. It is not the complete legal health record.[facility]
== END 2025-01-19 12:06 | disposition home or self-care (01) ==
LOC: HO.HGI 11:08
PROVIDERS: PCP Internal Medicine; Visit Provider Internal Medicine Gastroenterology
DX: K50.919 Crohn's disease, unspecified, with unspecified complications (principal)
CPT/HCPCS: 99214

== ENCOUNTER → 2025-01-19 11:07 | Outpatient (BNVA) | payer MEDICARE, MEDICAID, SELFPAY | PROVIDERS: PCP Internal Medicine; Visit Provider Internal Medicine Gastroenterology | DX: K50.919 Crohn's disease, unspecified, with unspecified complications (principal); D64.9 Anemia, unspecified; E11.9 Type 2 diabetes mellitus without complications; Z79.82 Long term (current) use of aspirin; Z79.4 Long term (current) use of insulin; Z79.891 Long term (current) use of opiate analgesic; Z79.899 Other long term (current) drug therapy | CPT/HCPCS: 99212 ==

== ENCOUNTER 2025-02-02 09:13 | Outpatient (AMB) | payer MEDICARE, MEDICAID, SELFPAY ==
--- OUTSIDE RECORDS SUMMARY | 2022-11-05 08:35 | XMS_ITS | Encounter Summary ---
Author Organization [facility] Address [address] [facility] [address] [place] [phone] Phone Care Team Providers Care Molybdenum Steamer Operator Name Role Phone Marcelo Lopez MD Primary Care Provider [phone] Encounter Details Date Type Department Care Team (Late Contact Info) Description 11/05/2022 8:35 AM EDT Hospital Encounter [facility] [address] [place] [address] Berenice Haider, CLIN NURSE SPEC [address] [place] [phone] [email or web address] Social History Tobacco Use Types Packs/Day Years [...] as of this encounter Plan of Treatment Upcoming Encounters Date Type Department Care Team (Late st Contact Info) Description 02/10/2025 9:10 AM EDT Office Visit [facility] [address] [place] [phone] Aravind Burnham DO [address] [place] [phone] [email or web address] documented as of this encounter Procedures Procedure [...] or pulmonary edema. 2. Mild cardiomegaly. ATTESTATION: I, Hawa Parks as teaching physician, have reviewed the images [...] or pulmonary edema. 2. Mild cardiomegaly. ATTESTATION: I, Hawa Parks as teaching physician, have reviewed theimages for this case and if necessary edited the report originally createdby Vandana Knott. Berenice Haider CLIN NURSE SPEC IMG XR CHEST Final Resul t documented in this encounter Visit Diagnoses Not on filedocumented in this encounter Care Teams Molybdenum Steamer Operator Relationship Specialty Start Date End Date Marcelo Lopez MD [address] [place] [address] Dr [address] [place] [phone] PCP - General Internal Medicine 12/18/18 documented as of this encounter Additional Source Comments The information contained in this document represents components of the legal health record. It is not the complete legal health record.[facility]
--- NOTE | 2025-02-02 09:17 | MHC.PC.OV ---
Vital Signs 02/02/25 09:18 Height 6 ft 1 in Weight 232 lb 2 oz BMI 30.6 BP 120/60 Blood Pressure Location Lt brachial Position Sitting Pulse 65 Pulse Source Pulse Oximeter Temp 97.1 F Temp Source Temporal Artery Scan Pulse Oximetry (%) 96 Oxygen Delivery Method Room Air Intake Visit Reasons: DM, CKD Intake Note: Patient is here to follow up on DM, CKD. Metal Off Bearer Required: No Animal Handler: Not Required per policy Accompanied by: Self / Same As Patient Allergies sertraline (SERTRALINE) Allergy (Severe, Verified 02/02/25 09:48) RASH, ABD PAIN DEHYDRATION Penicillins (PENICILLINS) Allergy (Intermediate, Verified 02/02/25 09:48) RASH Medication List - Last Reconciled 02/02/25 by Marcelo Lopez MD albuterol sulfate 90 mcg/actuation (Ventolin HFA) 2 puffs inhalation Q6H PRN 30 days amlodipine 5 mg PO DAILY 90 days aspirin (Adult Low Dose Aspirin) 81 mg PO DAILY atenolol 50 mg PO DAILY [BATHTUB TRANSFER BENCH EXTENSION LEGS As directed] bisacodyl (Dulcolax (bisacodyl)) 10 mg (2 x 5 mg) PO ONCE 1 day blood sugar diagnostic ([employer] Verio test strips) As directed- in vitro 3 times a day blood-glucose sensor ([employer] G6 Sensor device) As directed blood-glucose transmitter ([employer] G6 Transmitter device) USE TO TEST BLOOD SUGAR THREE TIMES DAILY blood-glucose,fruit dryer,cont (XMS [employer] G6 Experimental Flight Test Mechanic) As directed bupropion HCl XL 150 mg PO DAILY buspirone 5 mg PO BID celecoxib mg PO BID cholecalciferol (vitamin D3) 250 mcg PO 2XW 90 days cyanocobalamin (vitamin B-12) 1,000 mcg PO DAILY fluoxetine 60 mg (3 x 20 mg) PO DAILY 30 days fluticasone propionate 50 mcg/actuation 1 spray intranasal DAILY insulin lispro (Humalog KwikPen (U-100) Insulin) Take 2 to 8 units SQ 4 times a day - with meals and at bedtime - PER SLIDING SCALE (see below for sliding scale details) Insulin as advised before meals 0-150: 0 unit 151-200: 2 units 201-250: 4 units 251-300: 6 units 301-350: 8 units >351 call lancets (OneTouch Delica Lancets) As directed Lantus Solostar U-100 Insulin (insulin glargine) 70 units (0.7 mL) subcut DAILY NS melatonin 3 mg PO BEDTIME PRN mirtazapine 15 mg PO BEDTIME omeprazole 40 mg PO BID oxycodone 5 mg PO Q4-6H PRN pen needle, diabetic (Easy Touch) 1 ea miscellaneous BID 30 days polyethylene glycol 3350 (Miralax) 17 grams PO BID 30 days pyridoxine (vitamin B6) 50 mg PO DAILY 30 days rosuvastatin 10 mg PO DAILY 90 days sennosides (senna) 17.2 mg (2 x 8.6 mg) PO DAILY PRN 90 days [shower chair As directed] sildenafil 50 mg PO DAILY PRN trazodone 100 mg PO BEDTIME PRN 90 days Tobacco use date assessed: 02/02/25 Fall risk assessment: No Falls in past year Last assessed Fall Risk: 02/02/25 Dental Screening Dental Screen Date: 09/26/24 HPI DM, CKD HPI Details Patient comes in today for his follow up visit States that he feels okay Had some congestion in his chest and sinuses last week - thinks that he had some type of respiratory bug but is starting to feel better now He denies any fever or sore throat; denies any SOB Denies any headaches or dizziness Denies any exertional chest pains No nausea/vomiting, no abdominal pain No change in bowel habits noted - still struggles with chronic constipation and occasionally has loose stools/diarrhea and he is now being seen and managed by GI (Dr. Rush) for this issue He was not able to get his follow up labs done prior to coming in for his appointment today [facility] Medical History Overweight (BMI 25.0-29.9) Type 2 diabetes mellitus with stage 3b chronic kidney disease, with long-term current use of insulin Mixed hyperlipidemia Obstructive sleep apnea Memory impairment Environmental allergies Chronic kidney disease (CKD), stage III (moderate) Prostate cancer screening H/O hyperkalemia Recurrent cough Obesity (BMI 30-39.9) Depression Anxiety Insomnia Primary osteoarthritis, left shoulder Crohn's disease GERD (gastroesophageal reflux disease) Pure hypercholesterolemia Benign essential hypertension Microalbuminuria intermediate (current) use of insulin Type 2 diabetes mellitus with diabetic polyneuropathy Allergic rhinitis Surgical History Hx of foot surgery (11/05/23) History of esophagogastroduodenoscopy (EGD) Hx of colonoscopy History of umbilical hernia repair Family History Father Diabetes Melanoma Mother Diabetes Hypertension Cancer Sister Diabetes Social History Household Members: None Housing: Apartment Do you presently have visiting nurse or other home services: No Alcohol intake: former Patient Tobacco Use Status: Former Tobacco user Tobacco use type: Cigarette e-Cigarette/Vaping Use: Never Used Second Hand Smoke Exposure: Yes service: No Current occupational status: employed Cognitive needs: No Hearing needs: No Vision needs: No Questionnaire PHQ-9 Over the last 2 weeks, how often have you been bothered by any of the following problems? 1. Little interest or pleasure in doing things: not at all 2. Feeling down, depressed, or hopeless: not at all 3. Trouble falling or staying asleep, or sleeping too much: not at all 4. Feeling tired or having little energy: several days 5. Poor appetite or overeating: several days 6. Feeling bad about yourself - or that you are a failure or have let yourself or your family down: not at all 7. Trouble concentrating on things, such as reading the newspaper or watching television: several days 8. Moving or speaking so slowly that other people could have noticed. Or the opposite - being so fidgety or restless that you have been moving around a lot more than usual: not at all 9. Thoughts that you would be better off or of hurting yourself in some way: not at all Total score: 3 Depression Screening Interpretation: Positive Depression Screening Follow-up: Existing condition and In treatment Depression Screening Done: Yes 16411 - PHQ-9 Billing: Yes Source: Developed by Drs. Kirill Hanna, Jeimy Garcia, Bijan Milian and colleagues, with an educational rolanda from [employer]. Thrive Questionnaire Date Thrive assessed: 09/26/24 I am a: Patient What is your living situation today?: I have a steady place to live Within the past 12 months, did the food you bought not last and you didn't have the money to get more?: Never true Within the past 12 months, did you worry whether your food would run out before you got money to buy more?: Never true Do you have trouble paying for medicines?: No Do you have trouble getting transportation to medical appointments?: Yes Do you have trouble paying your heating and electricity bill?: No Do you have trouble taking care of your child, family member or friend?: No Do you have trouble with day-to-day activities such as bathing, preparing meals, shopping, managing finances, etc.?: No Are you currently unemployed and looking for a job?: No Are you interested in more education?: No Please select the resources that you would like help with: None Currently or been in a relationship where the following occur: No concerns reported THRIVE Score: 1 AUDIT C Alcohol Use Questionnaire (AUDIT-C) 1. How often do you have a drink containing alcohol?: Never Total Score: 0 Score Reviewed/Action Taken: Yes NOHEMY-7 AMB Questionnaire NOHEMY-7 Date NOHEMY - 7 assessed: 09/26/24 Feeling nervous, anxious, or on edge: 1 = Several days Not being able to stop or control worryin = Not at all Worrying too much about different things: 0 = Not at all Trouble relaxin = Not at all Being so restless that it is hard to sit still: 0 = Not at all Becoming easily annoyed or irritable: 0 = Not at all Feeling afraid as if something awful might happen: 0 = Not at all Total NOHEMY-7 score (0-4 normal; 5-9 mild; 10-14 moderate; 15-21 severe): 1 Source: Developed by Drs. Kirill Hanna, Jeimy Garcia, Bijan Milian and colleagues, with an educational rolanda from [employer]. Review of Systems Const Denies chills, Reports fatigue, Denies fever(s) and Denies headache(s) ENT Denies dysphagia, Denies dizziness, Denies otalgia, Denies headache(s), Denies neck pain, Denies odynophagia and Denies sore throat Card Denies chest pain, Denies irregular heart rhythm, Denies palpitations and Denies dyspnea Resp Reports chest congestion (mild - improving), Denies cough, Denies dyspnea and Denies wheezing GI Denies abdominal pain, Reports constipation (chronic), Denies dysphagia, Denies heartburn, Reports diarrhea (occasionally), Denies nausea, Denies odynophagia and Denies vomiting Denies difficulty urinating, Denies dysuria, Reports nocturia and Reports urinary frequency Musc Details: increased pain in his right foot Reports back pain (over the lower back - chronic), Denies arthralgias and Denies neck pain Skin/Breast Denies rash Neuro Details: (+) sensation of deep pain in both legs and feet Denies dizziness, Denies headache(s) and Denies paresthesias Psych Reports depression (Rx helping) Endo Reports fatigue and Denies palpitations Aller/Immun Denies wheezing Physical exam (Primary Care) Vital Signs: Last Vital Signs Temp 97.1 F 02/02/25 09:18 Pulse 65 02/02/25 09:18 BP 120/60 02/02/25 09:18 Pulse Ox 96 02/02/25 09:18 Oxygen Delivery Method Room Air 02/02/25 09:18 BMI result Body Mass Index 30.6 Tobacco/Smoking Status: Tobacco use Status Tobacco use date assessed 02/02/25 02/02/25 09:24 Patient Tobacco Use Status Former Tobacco user 02/02/25 09:24 Tobacco use type Cigarette 02/02/25 09:24 e-Cigarette/Vaping Use Never Used 02/02/25 09:24 PHQ-9: PHQ-9 Score PHQ-9: Total score 3 02/02/25 09:24 Depression Screening Interpretation: Positive Depression Screening Follow-up: Existing condition and In treatment Thrive Assessment: Date of Thrive Assessment Date Thrive assessed 09/26/24 02/02/25 09:24 Currently or been in a relationship where the following occur: No concerns reported Const General: no acute distress and alert HENMT Ears: TM's normal bilaterally and EAC's normal Throat: Yes posterior oropharynx normal and Yes tonsils normal (no TP congestion) Neck Neck: Yes supple and No lymphadenopathy Thyroid: Thyroid normal Resp Auscultation: clear to auscultation bilaterally, no rales and no wheezes Cardio Rate: regular rate Rhythm: regular rhythm Heart sounds: no murmurs GI Palpation (GI): Soft to palpation and nontender Auscultation: normal bowel sounds General: Yes no CVA tenderness Back/Spine/Pelvis Back: no CVA tenderness Thoracic/Lumbar Spine: lumbar spinal tenderness (mild) Skin Rashes: no rashes Extrem General: Yes no clubbing, cyanosis or edema Results AMB Hemoglobin A1c AMB Hemoglobin A1c 11.6 % Last Edit by JASE Pinedo on 02/02/25 09:29 Results Reviewed Results Reviewed: Laboratory Last Values Hgb A1c (Clinic) 11.6 % (4.0-6.0) H 02/02/25 09:16 Coding Level of Care Code Est Pt Level 4 (71204) Diagnoses Type 2 diabetes mellitus with stage 3b chronic kidney disease, with long-term current use of insulin E11.22; N18.32; Z79.4 Stage 3a chronic kidney disease N18.31 Chronic kidney disease stage 3 subtype: stage 3a (GFR 45-59) Neuropathy G62.9 Mixed hyperlipidemia E78.2 Benign essential hypertension I10 Obstructive sleep apnea G47.33 Crohn's disease with complication, unspecified gastrointestinal tract location K50.919 Gastrointestinal tract location: unspecified location Digestive disease complication type: unspecified complication Constipation, unspecified constipation type K59.00 Constipation type: unspecified constipation type Primary insomnia F51.01 Insomnia type: primary Anxiety F41.9 Episode of recurrent major depressive disorder, unspecified depression episode severity F33.9 Depression Type: major depressive disorder Major depression recurrence: recurrent Active/Remission status: currently active Major depression episode severity: unspecified Obesity (BMI 30-39.9) E66.9 Additional Codes PHQ-9 - 34433 - PHQ-9 Billing: Yes ([id number]) Assessment & Plan Assessment & Plan (1) Type 2 diabetes mellitus with stage 3b chronic kidney disease, with long-term current use of insulin: Code(s): E11.22 - Type 2 diabetes mellitus with diabetic chronic kidney disease; N18.32 - Chronic kidney disease, stage 3b; Z79.4 - keno terminal operator (current) use of insulin Category: Medical Plan: His in-office HgbA1c today is at 11.6% (HgbA1c was previously at 8.9% a few months ago and in-office HgbA1c was at 7.5% back in early April 2024) - goal is at least <7.0% Reinforced diabetic diet Continue Lantus Solostar 70 units Q HS, Humalog Kwikpen 2 to 8 units SQ 4 times a day (with meals and at bedtime) per sliding scale and Metformin 1000 mg BID We tried starting him on Trulicity in the past but he could not afford the co-pay for his Rx He is seeing Dr. Burnham at [facility] for his diabetes management and states that he has a follow up appointment coming up in a few weeks and have advised him NOT TO MISS that appointment as Dr. Huggins will likely have to modify/adjust his Rx again (2) Chronic kidney disease (CKD), stage III (moderate): Code(s): N18.30 - Chronic kidney disease, stage 3 unspecified Category: Medical Qualifiers: Chronic kidney disease stage 3 subtype: stage 3a (GFR 45-59) Qualified Code(s): N18.31 - Chronic kidney disease, stage 3a Plan: His renal function appears to be gradually progressing again lately, likely due to his poor glycemic control Will continue to monitor his renal function regularly/closely - have advised patient to go and get his follow up labs done today as soon as he checks out of the office (3) Neuropathy: Code(s): G62.9 - Polyneuropathy, unspecified Category: Medical Plan: Continue Oxycodone 5 mg Q 4 to 6 hours PRN only for severe pain (4) Mixed hyperlipidemia: Code(s): E78.2 - Mixed hyperlipidemia Category: Medical Plan: He was not able to get his follow up labs done prior to coming in for his appt today and have advised him to go and get them done as soon as he is done with his office visit today We will also send a copy of these labs to Dr. Burnham's office for his review Reinforced low cholesterol diet Continue Rosuvastatin 10 mg QD - Rx was held when he was on Daptomycin for his osteomyelitis earlier this year (he had some unrecalled problems with Atorvastatin in the past but is tolerating Rosuvastatin with no issues) Will recheck his labs and fasting lipids in 3 months for follow up (5) Benign essential hypertension: Code(s): I10 - Essential (primary) hypertension Category: Medical Plan: Reinforced low sodium diet - goal is systolic BP of at least 120 to 130 mm or less Continue Irbesartan 300 mg QD and Amlodipine 5 mg QD He used to also take HCTZ 12.5 mg QD in the past but this was discontinued at some point, likely when he presented to the hospital with DELVIS a few months ago He is reminded to continue monitoring his blood pressure regularly (6) Obstructive sleep apnea: Code(s): G47.33 - Obstructive sleep apnea (adult) (pediatric) Category: Medical Plan: He was diagnosed with HERSON last year and is now on CPAP therapy when he sleeps at night Follow up with Sleep Medicine as scheduled (7) Crohn's disease: Code(s): K50.90 - Crohn's disease, unspecified, without complications Category: Medical Qualifiers: Gastrointestinal tract location: unspecified location Digestive disease complication type: unspecified complication Qualified Code(s): K50.919 - Crohn's disease, unspecified, with unspecified complications Plan: Currently stable with no recent flare ups He was on Lialda 1.2 mg 2 tablets daily in the past but he stopped taking it a while back as he could not afford the cost of the Rx Follow up with GI (Dr. Rush) as scheduled (8) Constipation: Code(s): K59.00 - Constipation, unspecified Category: Medical Qualifiers: Constipation type: unspecified constipation type Qualified Code(s): K59.00 - Constipation, unspecified Plan: Reinforced increased oral fluids and dietary fiber Continue Senna 8.6 mg 2 tablets Q HS PRN Follow up with GI (Dr. Rush) as scheduled (9) Insomnia: Code(s): G47.00 - Insomnia, unspecified Category: Medical Qualifiers: Insomnia type: primary Qualified Code(s): F51.01 - Primary insomnia Plan: Sleep hygiene reinforced He is on Mirtazapine, which helps with his sleep at night He could not tolerate Trazodone in the past - states that he felt like a zombie the next day He has also tried 1/2 tablet of OTC Melatonin 10 mg - states that it also knocks him out but not as much as Trazodone did Advised that he can continue Melatonin if it helps and there should be no concerning long-term side effects from it, including any habit-forming potential (10) Anxiety: Code(s): F41.9 - Anxiety disorder, unspecified Category: Medical Plan: Continue Lorazepam 0.5 mg QD PRN (11) Depression: Code(s): F32.9 - Major depressive disorder, single episode, unspecified Category: Medical Qualifiers: Depression Type: major depressive disorder Major depression recurrence: recurrent Active/Remission status: currently active Major depression episode severity: unspecified Qualified Code(s): F33.9 - Major depressive disorder, recurrent, unspecified Plan: Continue Fluoxetine 60 mg QD and Mirtazapine 15 mg Q HS Follow up with psychiatry as scheduled (12) Obesity (BMI 30-39.9): Code(s): E66.9 - Obesity, unspecified Category: Medical Plan: Reinforced diet; exercise and weight loss are unrealistic at this time given patient's recent osteomyelitis, toe amputation and other physical issues Plan Follow up in 3 months Orders: Orders AMB Hemoglobin A1c Today E11.42 - Type 2 diabetes mellitus with diabetic polyneuropathy, Z79.4 - intermediate (current) use of insulin Lipid Panel 3 Months E78.00 - Pure hypercholesterolemia, unspecified Microalbumin, Random (w Creat) 3 Months E11.9 - Type 2 diabetes mellitus without complications Complete Blood Count Auto Diff 3 Months D64.9 - Anemia, unspecified UA CC w/rflx Micro + Cult 3 Months R30.0 - Dysuria TSH reflex Free T4 3 Months E78.00 - Pure hypercholesterolemia, unspecified Comprehensive [place]. Panel Fast 3 Months E78.00 - Pure hypercholesterolemia, unspecified Hemoglobin A1c 3 Months E11.9 - Type 2 diabetes mellitus without complications
[2025-02-02 09:18] VITALS: BP 120/60; PULSE 65; TEMP 36.2; O2SAT 96; BMI 30.6
== END 2025-02-02 09:53 | disposition home or self-care (01) ==
LOC: HO.HMCH 09:14
PROVIDERS: PCP Internal Medicine; Visit Provider Internal Medicine
DX: E11.22 Type 2 diabetes mellitus with diabetic chronic kidney disease (principal); N18.32 Chronic kidney disease, stage 3b; Z79.4 Long term (current) use of insulin; K50.919 Crohn's disease, unspecified, with unspecified complications; E11.42 Type 2 diabetes mellitus with diabetic polyneuropathy; G62.9 Polyneuropathy, unspecified; E78.2 Mixed hyperlipidemia; I10 Essential (primary) hypertension; G47.33 Obstructive sleep apnea (adult) (pediatric); K59.00 Constipation, unspecified; F51.01 Primary insomnia; F41.9 Anxiety disorder, unspecified

== ENCOUNTER 2025-02-02 09:13 | Outpatient (REF) | payer MEDICARE, MEDICAID, SELFPAY ==
[2025-02-02 10:39] LABS: MANUAL DIFF FLAG NO
[2025-02-02 10:57] LABS: Hematocrit 37.7 % (42.0-52.0); Hematocrit 38.7 % (42.0-52.0); Hemoglobin 12.8 g/dl (14.0-18.0); Hemoglobin 12.9 g/dl (14.0-18.0); Imm Gran Abs Auto 0.06 X10*3/uL (0.00-0.03); Imm Gran Pct Auto 0.8 % (0.0-0.4); Lymphocytes Absolute Auto 2.4 X10*3/uL (1.2-4.9); Mean Corpuscular HGB Conc 33.1 g/dl (31.0-36.0); Mean Corpuscular HGB Conc 34.2 g/dl (31.0-36.0); Mean Corpuscular Hemoglobin 29.0 pg (27.0-33.0); Mean Corpuscular Hemoglobin 29.6 pg (27.0-33.0); Mean Corpuscular Volume 86.5 fL (80.0-98.0); Mean Corpuscular Volume 87.6 fL (80.0-98.0); NRBC Abs Auto 0.000 X10*3/uL (0.0-0.012); NRBC Pct Auto 0.0 /100WBC (0.0-0.2); Platelet Count 325 X10*3/uL (160-400); Platelet Count 335 X10*3/uL (160-400); Red Blood Count 4.36 X10*6/uL (4.60-5.80); Red Blood Count 4.42 X10*6/uL (4.60-5.80); White Blood Count 7.2 X10*3/uL (4.8-10.8)
[2025-02-02 11:02] LABS: Hemoglobin A1C 373.3147 umol/L; Total Hemoglobin (HGBA1C) 3423.2478 umol/L
[2025-02-02 11:29] LABS: Appearance Urine Clear; Glucose Urine UA >=1000 mg/dL (Negative); PH 5.5 (5.0-9.0); Specific Gravity - Urine >= 1.030 (1.005-1.025); UMIC TRIGGER UACC YES
[2025-02-02 11:52] LABS: Iron 68 mcg/dL (45-160); Percent Iron Saturation 22 % (15-50); Total Iron Binding Capacity 315 mcg/dL (228-428); Unsaturated Iron Binding 247 ug/dL
[2025-02-02 11:57] LABS: Alanine Aminotransferase 21 U/L (0-40); Albumin Level 4.4 g/dL (3.5-5.0); Alkaline Phosphatase 128 U/L (39-117); Anion Gap 12 (12-20); Aspartate Amino Transferase 28 U/L (5-37); Blood Urea Nitrogen 31 mg/dL (9-16); Calcium 9.1 mg/dL (8.4-10.2); Carbon Dioxide 25 mmol/L (22-29); Chloride 104 mmol/L (96-108); Cholesterol 214 mg/dL (<200); Estimated Glomerular Filt Rate 38; HDL Cholesterol 24 mg/dL (>40); Potassium 4.7 mmol/L (3.3-5.1); Sodium 136 mmol/L (135-145); Total Protein 7.4 g/dL (6.5-8.0); Triglycerides 719 mg/dL (<150)
[2025-02-02 12:00] LABS: Ferritin 30 ng/mL (20-250)
[2025-02-02 12:09] LABS: Folate 5.5 ng/mL (> or = 4.0); Vitamin B12 1495 pg/mL (200-900)
[2025-02-02 12:13] LABS: Microalbum/Creatinine Ratio Ur 226.9 ug/mg cr (<30)
[2025-02-09 02:24] LABS: Calprotectin, Fecal 223 mcg/g
== END 2025-02-02 09:14 | disposition home or self-care (01) ==
LOC: HO.LAB 09:13
PROVIDERS: Absent Provider Internal Medicine Gastroenterology; PCP Internal Medicine; Visit Provider Internal Medicine
DX: I12.9 Hypertensive chronic kidney disease with stage 1 through stage 4 chronic kidney disease, or unspecified chronic kidney disease (principal); E11.22 Type 2 diabetes mellitus with diabetic chronic kidney disease; N18.32 Chronic kidney disease, stage 3b; Z79.4 Long term (current) use of insulin; G62.9 Polyneuropathy, unspecified; E78.2 Mixed hyperlipidemia; G47.33 Obstructive sleep apnea (adult) (pediatric); K50.919 Crohn's disease, unspecified, with unspecified complications; F41.9 Anxiety disorder, unspecified; F51.01 Primary insomnia; F33.9 Major depressive disorder, recurrent, unspecified; E66.9 Obesity, unspecified; Z68.30 Body mass index [BMI] 30.0-30.9, adult; Z71.3 Dietary counseling and surveillance; E78.00 Pure hypercholesterolemia, unspecified; E55.9 Vitamin D deficiency, unspecified; E53.8 Deficiency of other specified B group vitamins; D64.9 Anemia, unspecified
CPT/HCPCS: 36415; 80053; 80061; 81001; 82043; 82306; 82570; 82607; 82728; 82746; 83036; 83540; 83993; 84443; 85025; 85027; 86140; 96127; 99212

== ENCOUNTER 2025-02-23 15:08 | Outpatient (AMB) | payer MEDICARE, MEDICAID, SELFPAY ==
--- OUTSIDE RECORDS SUMMARY | 2022-11-05 08:35 | XMS_ITS | Encounter Summary ---
Author Organization [facility] Address [address] [place] [phone] Phone Care Team Providers Care Anthropology Professor Name Role Phone Marcelo Lopez MD Primary Care Provider [phone] Encounter Details Date Type Department Care Team (Late st Contact Info) Description 11/05/2022 8:35 AM EDT Hospital Encounter [facility] [address] [place] [id number] Berenice Haider, EMERGENCY ROOM TECHNICIAN [address] [place] [phone] [email or web address] Social History Tobacco Use Types Packs/Day Years Used Date Smoking Tobacco: Never Smokeless Tobacco: Never Alcohol Use Standard Drinks/Week Comments Yes 0 (1 standard drink = 0.6 oz pur e alcohol) Education Answer Date Recorded Are you interested in more education? Not on ailyn e 10/10/2022 Are you concerned about learning? Not on file 10/10/2022 No 10/10/2022 No 10/10/2022 Digital Access Answer Date Recorded No 11/05/2022 No 11/05/2022 Reliable internet access at home? Not on file 11/05/2022 Device with a working camera? Not on file Sex and Gender Information Value Date Recorded Sex Assigned at Male 12/18/2018 1:55 PM EDT Legal Sex Male 10:36 PM EDT Gender Identity Male 12/18/2018 1:55 PM EDT Sexual Orientation Not on file documented as of this encounter Plan of Treatment Not on file documented as of this encounter Procedures Procedure Name Priority Date/Time Associated Diagnosis Comments XR CHEST PA AND LATERAL 2 VIEWS Urgent/patient waiting 11/05/2022 8:43 AM EDT Shortness of breath documented in this encounter Results * XR CHEST PA AND LATERAL 2 VIEWS (11/05/2022 8:43 AM EDT) Anatomical Region Laterality Modality Chest Computed Radiogr aphy 11/05/2022 8:52 AM EDT Impressions 11/05/2022 9:09 AM EDT 1. No focal consolidation or pulmonary edema. 2. Mild cardiomegaly. ATTESTATION: Hawa Stokes as teaching physician, have reviewed the images for this case and if necessary edited the report originally created by Vandana Knott. Narrative 11/05/2022 9:09 AM EDT XR CHEST PA AND LATERAL 2 VIEWS COMPARISON: None FINDINGS: Devices/Tubes/Lines: None. Lungs: The lungs are clear. No focal consolidation or pulmonary edema. Pleura: No pleural effusion or pneumothorax. Heart/Mediastinum: Increased cardiomediastinal silhouette suggesting mild cardiomegaly. Bones/Soft Tissues: Multilevel degenerative changes in the thoracic spine. Procedure Note Hawa Parks MD - 11/05/2022 XR CHEST PA AND LATERAL 2 VIEWS COMPARISON: None FINDINGS: Devices/Tubes/Lines: None. Lungs: The lungs are clear. No focal consolidation or pulmonary edema. Pleura: No pleural effusion or pneumothorax. Heart/Mediastinum: Increased cardiomediastinal silhouette suggesting mildcardiomegaly. Bones/Soft Tissues: Multilevel degenerative changes in the thoracicspine. IMPRESSION: 1. No focal consolidation or pulmonary edema. 2. Mild cardiomegaly. ATTESTATION: Hawa Stokes as teaching physician, have reviewed theimages for this case and if necessary edited the report originally createdby Vandana Knott. Berenice Haider EMERGENCY ROOM TECHNICIAN IMG XR CHEST Final Resul t documented in this encounter Visit Diagnoses Not on filedocumented in this encounter Care Teams Anthropology Professor Relationship Specialty Start Date End Date Marcelo Lopez MD [address] [place] [address] [place] [address] PCP - General Internal Medicine 12/18/18 documented as of this encounter Additional Source Comments The information contained in this document represents components of the legal health record. It is not the complete legal health record.[facility]
[2025-02-23 15:09] VITALS: BP 120/62; PULSE 65; RESP 18; TEMP 35.9; O2SAT 95; BMI 31.2
--- NOTE | 2025-02-23 15:09 | A.OFFPC_ITS ---
Vital Signs 02/23/25 15:09 Height 6 ft 1 in Weight 236 lb 6 oz BMI 31.2 BP 120/62 Blood Pressure Location Lt brachial Position Sitting Respiration 18 Pulse 65 Pulse Source Pulse Oximeter Temp 96.6 F L Temp Source Temporal Artery Scan Pulse Oximetry (%) 95 Oxygen Delivery Method Room Air Intake Visit Reasons: [place] [facility] Manager Vitrectomy 03/15 Hplc Chemist Required: No Accompanied by: Self / Same As Patient Allergies sertraline (SERTRALINE) Allergy (Severe, Verified 02/23/25 15:25) RASH, ABD PAIN DEHYDRATION Penicillins (PENICILLINS) Allergy (Intermediate, Verified 02/23/25 15:25) RASH Medication List - Last Reconciled 02/23/25 by JESUS Farr albuterol sulfate 90 mcg/actuation (Ventolin HFA) 2 puffs inhalation Q6H PRN 30 days amlodipine 5 mg PO DAILY 90 days aspirin (Adult Low Dose Aspirin) 81 mg PO DAILY atenolol 50 mg PO DAILY [BATHTUB TRANSFER BENCH EXTENSION LEGS As directed] bisacodyl (Dulcolax (bisacodyl)) 10 mg (2 x 5 mg) PO ONCE 1 day blood sugar diagnostic ([employer] Verio test strips) As directed- in vitro 3 times a day blood-glucose sensor (Transpera G6 Sensor device) As directed blood-glucose transmitter (Transpera G6 Transmitter device) USE TO TEST BLOOD SUGAR THREE TIMES DAILY blood-glucose,boatswains mate,cont ([employer] G6 Mechanical Engineering Advisor) As directed bupropion HCl XL 150 mg PO DAILY buspirone 5 mg PO BID celecoxib mg PO BID cholecalciferol (vitamin D3) 250 mcg PO 2XW 90 days cyanocobalamin (vitamin B-12) 1,000 mcg PO DAILY fluoxetine 60 mg (3 x 20 mg) PO DAILY 30 days fluticasone propionate 50 mcg/actuation 1 spray intranasal DAILY insulin lispro (Humalog KwikPen (U-100) Insulin) Take 2 to 8 units SQ 4 times a day - with meals and at bedtime - PER SLIDING SCALE (see below for sliding scale details) Insulin as advised before meals 0-150: 0 unit 151-200: 2 units 201- 250: 4 units 251-300: 6 units 301-350: 8 units >351 call irbesartan 300 mg PO DAILY lancets ([employer] Delica Lancets) As directed Lantus Solostar U-100 Insulin (insulin glargine) 70 units (0.7 mL) subcut DAILY NS melatonin 3 mg PO BEDTIME PRN metformin 1,000 mg PO BID mirtazapine 15 mg PO BEDTIME omeprazole 40 mg PO BID oxycodone 5 mg PO Q4-6H PRN pen needle, diabetic (Easy Touch) 1 ea miscellaneous BID 30 days polyethylene glycol 3350 (Miralax) 17 grams PO BID 30 days pyridoxine (vitamin B6) 50 mg PO DAILY 30 days rosuvastatin 10 mg PO DAILY 90 days sennosides (senna) 17.2 mg (2 x 8.6 mg) PO DAILY PRN 90 days [shower chair As directed] trazodone 100 mg PO BEDTIME PRN 90 days Tobacco use date assessed: 02/23/25 Fall risk assessment: No Falls in past year Last assessed Fall Risk: 02/23/25 Dental Screening Dental Screen Date: 02/23/25 Did you have a dental visit in the last 12 months?: No Did you have a dental problem in the last 6 months where you did not have access to dental care?: No Was dental information given to patient?: No HPI [place] [facility] Vitrectomy 03/15 HPI Details The patient is a 69-year-old male presenting with concerns regarding his upcoming vitrectomy surgery and management of diabetes mellitus. The patient has a history of diabetes mellitus diagnosed in 2006, which has been challenging to manage due to dietary habits, including excessive consumption of sweets. His hemoglobin A1c has decreased from 12.1% to 10.7%, progressing the right direction but still raising concerns about surgical healing. Similarly, the patient had to cancelled a cataract surgery in the past until he was able to get this under control for surgical clearance. Encouraged the patient to working get his A1c below 8.5%, per patient he was told by his surgeon that anything on the 9% they will work with. The patient reports a history of cataracts and has undergone cataract surgery in the past. He is scheduled for a vitrectomy due to vitreous opacity, which affects his vision, causing significant blurriness and difficulty seeing at a distance. The patient also has neuropathy, which has resulted in decreased sensation in his feet, making him unaware of injuries unless visually observed. 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 Additionally, the patient suffers from plantar fasciitis, for which he has been prescribed Celebrex, providing significant pain relief. Surgeon/location: Dr. Jose Melgar at [facility] or [facility] Surgery Date: 03/15/2025 Phone number: [phone] option 3 Patient reports having similar surgery in the past without any issues. He denies any post surgery hypothermia or clotting disorder and he is not on any blood thinners. Discussed with the patient that he should stop this celecoxib 3 days before surgery, hold metformin the night before surgery, and only take half of the Lantus the day of surgery. Hold fast acting insulin the day of surgery, may take other medication with sips of water. Denies chest pain, shortness of breath, heart palpitation or dizziness Denies abdominal pain or change in bowel habits; patient has a history of Crohn's disease in his bowel habits fluctuates normally. [facility] Medical History Overweight (BMI 25.0-29.9) Type 2 diabetes mellitus with stage 3b chronic kidney disease, with long-term current use of insulin Mixed hyperlipidemia Obstructive sleep apnea Memory impairment Environmental allergies Chronic kidney disease (CKD), stage III (moderate) Prostate cancer screening H/O hyperkalemia Recurrent cough Obesity (BMI 30-39.9) Depression Anxiety Insomnia Primary osteoarthritis, left shoulder Crohn's disease GERD (gastroesophageal reflux disease) Pure hypercholesterolemia Benign essential hypertension Microalbuminuria FDC (current) use of insulin Type 2 diabetes mellitus with diabetic polyneuropathy Allergic rhinitis Surgical History Hx of foot surgery (11/05/23) History of esophagogastroduodenoscopy (EGD) Hx of colonoscopy History of umbilical hernia repair Family History Father Diabetes Melanoma Mother Diabetes Hypertension Cancer Sister Diabetes Social History Household Members: None Housing: Apartment Do you presently have visiting nurse or other home services: No Alcohol intake: former Patient Tobacco Use Status: Former Tobacco user Tobacco use type: Cigarette e-Cigarette/Vaping Use: Never Used Second Hand Smoke Exposure: Yes service: No Current occupational status: employed Cognitive needs: No Hearing needs: No Vision needs: No Questionnaire PHQ-9 Over the last 2 weeks, how often have you been bothered by any of the following problems? 1. Little interest or pleasure in doing things: not at all 2. Feeling down, depressed, or hopeless: not at all 3. Trouble falling or staying asleep, or sleeping too much: not at all 4. Feeling tired or having little energy: several days 5. Poor appetite or overeating: several days 6. Feeling bad about yourself - or that you are a failure or have let yourself or your family down: not at all 7. Trouble concentrating on things, such as reading the newspaper or watching television: several days 8. Moving or speaking so slowly that other people could have noticed. Or the opposite - being so fidgety or restless that you have been moving around a lot more than usual: not at all 9. Thoughts that you would be better off or of hurting yourself in some way: not at all Total score: 3 Depression Screening Interpretation: Positive Depression Screening Follow-up: Existing condition and In treatment Depression Screening Done: Yes Source: Developed by Drs. Kirill Hanna, Jeimy Garcia, Bijan Milian and colleagues, with an educational rolanda from [employer]. Thrive Questionnaire Date Thrive assessed: 02/23/25 I am a: Patient What is your living situation today?: I have a steady place to live Within the past 12 months, did the food you bought not last and you didn't have the money to get more?: Never true Within the past 12 months, did you worry whether your food would run out before you got money to buy more?: Never true Do you have trouble paying for medicines?: No Do you have trouble getting transportation to medical appointments?: Yes Do you have trouble paying your heating and electricity bill?: No Do you have trouble taking care of your child, family member or friend?: No Do you have trouble with day-to-day activities such as bathing, preparing meals, shopping, managing finances, etc.?: No Are you currently unemployed and looking for a job?: No Are you interested in more education?: No Please select the resources that you would like help with: None Currently or been in a relationship where the following occur: No concerns reported THRIVE Score: 1 AUDIT C Alcohol Use Questionnaire (AUDIT-C) 1. How often do you have a drink containing alcohol?: Never Total Score: 0 Score Reviewed/Action Taken: Yes NOHEMY-7 AMB Questionnaire NOHEMY-7 Date NOHEMY - 7 assessed: 02/23/25 Feeling nervous, anxious, or on edge: 1 = Several days Not being able to stop or control worryin = Not at all Worrying too much about different things: 0 = Not at all Trouble relaxin = Not at all Being so restless that it is hard to sit still: 0 = Not at all Becoming easily annoyed or irritable: 0 = Not at all Feeling afraid as if something awful might happen: 0 = Not at all Total NOHEMY-7 score (0-4 normal; 5-9 mild; 10-14 moderate; 15-21 severe): 1 Source: Developed by Drs. Kirill Hanna, Jeimy Garcia, Bijan Milian and colleagues, with an educational rolanda from [employer]. Review of Systems Const Denies headache(s) Eyes Reports blurry vision and Denies loss of vision ENT Denies vertigo, Denies dizziness, Denies headache(s) and Denies sore throat Card Denies chest pain, Denies leg edema and Denies lightheadedness Resp Denies cough, Denies hemoptysis and Denies wheezing GI Denies abdominal pain, Denies melena, Denies constipation, Denies diarrhea and Denies vomiting Denies dysuria, Denies urinary frequency and Denies urinary urgency Musc Denies arthralgias, Denies joint swelling, Denies numbness, Denies tingling and Reports other (Decreased sensation in extremities) Neuro Denies Abnormal speech present, Denies behavioral changes, Denies vertigo, Denies dizziness, Denies headache(s), Denies loss of vision, Denies memory loss, Denies numbness and Denies tingling Psych Denies anxiety, Denies behavioral changes, Denies depression, Denies memory loss and Denies panic attacks Son/Lymph Denies easy bleeding and Denies easy bruising Aller/Immun Denies wheezing Physical exam (Primary Care) Vital Signs: Last Vital Signs Temp 96.6 F L 02/23/25 15:09 Pulse 65 02/23/25 15:09 Resp 18 02/23/25 15:09 BP 120/62 02/23/25 15:09 Pulse Ox 95 02/23/25 15:09 Oxygen Delivery Method Room Air 02/23/25 15:09 BMI result Body Mass Index 31.2 Tobacco/Smoking Status: Tobacco use Status Tobacco use date assessed 02/23/25 02/23/25 15:18 Patient Tobacco Use Status Former Tobacco user 02/23/25 15:18 Tobacco use type Cigarette 02/23/25 15:18 e-Cigarette/Vaping Use Never Used 02/23/25 15:18 PHQ-9: PHQ-9 Score PHQ-9: Total score 3 02/23/25 15:57 Depression Screening Interpretation: Positive Depression Screening Follow-up: Existing condition and In treatment Thrive Assessment: Date of Thrive Assessment Date Thrive assessed 02/23/25 02/23/25 15:18 Currently or been in a relationship where the following occur: No concerns reported Const General: healthy appearing, no acute distress, alert and awake Nutritional Appearance: well nourished Orientation/consciousness: oriented to person, oriented to place and oriented to time HENMT Ears: TM's normal bilaterally General nose exam: Normal nasal mucous membranes and turbinates present Eyes Conjunctivae: conjunctivae normal Sclerae: sclerae normal Pupils: Equal, round and reactive pupils present Neck Neck: Yes no lymphadenopathy and Yes no JVD Thyroid: Thyroid normal Carotids: no bruits Resp Effort & Inspection: normal respiratory effort and not tachypneic Auscultation: no crackles, no rales, no rhonchi and no wheezes Cardio Rate: regular rate Rhythm: regular rhythm Heart sounds: no murmurs and normal S1 and S2 GI Palpation (GI): Soft to palpation, nontender, no hepatomegaly and no splenomegaly Auscultation: normal bowel sounds Skin General skin exam: no rashes or lesions noted and dry skin Neuro General: oriented to person, oriented to place and oriented to time Cranial nerves: Yes Equal, round and reactive pupils present Speech: No Abnormal speech present Gait exam (Neuro): Normal gait present Motor exam (neuro): no tremor noted Extrem Right upper extremity: full ROM Left upper extremity: full ROM Right lower extremity: full ROM; no edema Left lower extremity: full ROM; no edema Psych Mental Status: mental status grossly normal Speech and movement: Normal speech and movement present Affect: normal affect Attitude: cooperative Thought process: Normal thought process present Results AMB Hemoglobin A1c AMB Hemoglobin A1c 10.7 % Last Edit by Jania Tan MA on 02/23/25 15:58 Results Reviewed Results Reviewed: Laboratory Last Values Hgb A1c (Clinic) 10.7 % (4.0-6.0) H 02/23/25 15:47 Laboratory Tests 02/02/25 02/02/25 02/23/25 10:30 10:37 15:47 WBC 7.2 RBC 4.36 L Hgb 12.9 L Hct 37.7 L MCV 86.5 MCH 29.6 MCHC 34.2 RDW 12.7 Plt Count 325 Sodium 136 Potassium 4.7 Chloride 104 Carbon Dioxide 25 Anion Gap 12 BUN 31 H Creatinine 1.79 H Estim Creat Clear Calc Not Reportable Estimated GFR 38 Hgb A1c (Clinic) 10.7 H Calcium 9.1 Iron 68 TIBC 315 % Saturation 22 Unsat Iron Binding 247 Ferritin 30 Total Bilirubin 0.4 AST 28 ALT 21 Alkaline Phosphatase 128 H C-Reactive Protein 0.39 Total Protein 7.4 Albumin 4.4 Triglycerides 719 H Cholesterol 214 H HDL Cholesterol 24 L Vitamin B12 1495 H 25-OH Vitamin D Total 36.9 Folate 5.5 TSH 2.84 Urine Color Yellow Urine Appearance Clear Urine pH 5.5 Ur Specific [place] >= 1.030 H Urine Protein Trace Urine Glucose (UA) >=1000 H Urine Ketones Negative Urine Blood Negative Urine Nitrite Negative Ur Leukocyte Esterase Negative Urine RBC 0-2 Urine WBC 0-5 Ur Squamous Epith Cells 0-2 Urine Bacteria None Seen Hyaline Casts 0-2 Urine Creatinine 45.39 Urine Microalbumin 103.0 Microalb/Creat Ratio 226.9 H Coding Level of Care Code Est Pt Level 4 (76911) Diagnoses Preoperative clearance Z01.818 Benign essential hypertension I10 Mixed hyperlipidemia E78.2 Type 2 diabetes mellitus with diabetic polyneuropathy, with long-term current use of insulin E11.42; Z79.4 Diabetes mellitus terminal block assembler insulin use: with terminal block assembler use Obesity (BMI 30-39.9) E66.9 Gastroesophageal reflux disease without esophagitis K21.9 Esophagitis presence: without esophagitis Crohn's disease with complication, unspecified gastrointestinal tract location K50.919 Gastrointestinal tract location: unspecified location Digestive disease complication type: unspecified complication Stage 3a chronic kidney disease N18.31 Chronic kidney disease stage 3 subtype: stage 3a (GFR 45-59) Obstructive sleep apnea G47.33 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 Reviewed with the patient that no surgery is completely free of risk and that this examination is to assist the surgeon in reviewing informed consent. (2) Benign essential hypertension: Code(s): I10 - Essential (primary) hypertension Category: Medical Plan: Blood pressure within goal Reinforced low-salt diet Continue irbesartan 300 mg daily, atenolol 50 mg daily (3) Mixed hyperlipidemia: Code(s): E78.2 - Mixed hyperlipidemia Category: Medical Plan: Triglycerides 117, total cholesterol 214, HDL 24-unable to calculate LDL due to elevated triglycerides on 02/02/2025 Discussed lifestyle modifications including dietary changes and physical activity Continue rosuvastatin 20 mg daily Explained to the patient that if his glucose is better controlled his triglycerides will follow (4) Type 2 diabetes mellitus with diabetic polyneuropathy: Code(s): E11.42 - Type 2 diabetes mellitus with diabetic polyneuropathy Category: Medical Qualifiers: Diabetes mellitus terminal block assembler insulin use: with terminal block assembler use Qualified Code(s): E11.42 - Type 2 diabetes mellitus with diabetic polyneuropathy; Z79.4 - intermission coordinator (current) use of insulin Plan: The patient's diabetes mellitus is poorly controlled, with a recent hemoglobin A1c of 10.7%. He has been advised to modify his diet to reduce his A1c to below 8.5% to ensure surgical clearance for his upcoming vitrectomy. The patient reports that he has been eating a lot of ice cream and did not want to make any changes to his medications. Medications such as metformin and insulin require adjustment around the time of surgery, with specific instructions to hold metformin the night before and morning of the procedure and to take half the usual dose of Lantus insulin. (5) Obesity (BMI 30-39.9): Code(s): E66.9 - Obesity, unspecified Category: Medical Plan: Discussed lifestyle modifications including dietary changes and physical activity (6) GERD (gastroesophageal reflux disease): Code(s): K21.9 - Gastro-esophageal reflux disease without esophagitis Category: Medical Qualifiers: Esophagitis presence: without esophagitis Qualified Code(s): K21.9 - Gastro-esophageal reflux disease without esophagitis Plan: Reinforced dietary restriction Continue omeprazole 40 mg b.i.d. (7) Crohn's disease: Code(s): K50.90 - Crohn's disease, unspecified, without complications Category: Medical Qualifiers: Gastrointestinal tract location: unspecified location Digestive disease complication type: unspecified complication Qualified Code(s): K50.919 - Crohn's disease, unspecified, with unspecified complications Plan: Currently stable with no recent flare ups He was on Lialda 1.2 mg 2 tablets daily in the past but he stopped taking it a while back as he could not afford the cost of the Rx (8) Chronic kidney disease (CKD), stage III (moderate): Code(s): N18.30 - Chronic kidney disease, stage 3 unspecified Category: Medical Qualifiers: Chronic kidney disease stage 3 subtype: stage 3a (GFR 45-59) Qualified Code(s): N18.31 - Chronic kidney disease, stage 3a Plan: The patient kidney function as noted to decrease some attributed to poor glucose control. The patient is motivated to cut back on sweets in order to get his A1c down for surgery. We will continue to monitor (9) Obstructive sleep apnea: Code(s): G47.33 - Obstructive sleep apnea (adult) (pediatric) Category: Medical Plan: Continue CPAP (10) Diabetic retinopathy: Code(s): E11.319 - Type 2 diabetes mellitus with unspecified diabetic retinopathy without macular edema Category: Medical Qualifiers: Diabetes mellitus type: type 2 Diabetic retinopathy severity: with unspecified retinopathy severity Diabetes mellitus macular edema: without macular edema Laterality: bilateral Qualified Code(s): E11.319 - Type 2 diabetes mellitus with unspecified diabetic retinopathy without macular edema Plan: Patient reports blurry vision. He has a plan vitrectomy in his presenting for clearance today. Clearance is unable to be granted given the patient elevated A1c at 10.7%. Discussed with the patient that this may complicates his healing process. Orders: Orders AMB Hemoglobin A1c 02/23/25 Z13.9 - Encounter for screening, unspecified
--- OUTSIDE RECORDS SUMMARY | 2025-02-23 18:33 | XMS_ITS | Encounter Summary ---
Author Organization [facility] Address [address] [place] [address] Care Team Providers Care Wallpaper Scraper Name Role Phone Santi Castaneda MD Unavailable [phone] Marcelo Lopez MD Primary Care Provider [phone] Nico Smith MD Unavailable [phone] System, Provider Not In Unavailable Unavaila ble System, Provider Not In Unavailable Unavaila ble System, Provider Not In Unavailable Unavaila ble Encounter Details Date Type Department Care Team (Late st Contact Info) Description 04/12/2024 Scanned Document [facility] [address] [place] [address] [place] [address] [facility] [address] [place] [address] Social History Tobacco Use Types Packs/Day Years [...] on filedocumented in this encounter Care Teams Wallpaper Scraper Relationship Specialty Start Date End Date Marcelo Lopez MD [address] [place] [address] [address] [place] [address] PCP - General Internal Medicine 02/22/24 Santi Castaneda MD [address] [place] [id number] Surgery, Orthopedic 02/22/24 Nico Smith MD [address] [facility] [address] [place] [address] Physician Nephrology 02/22/24 System, Provider Not In 02/25/24 System, Provider Not In Infectious Disease 02/25/24 System, Provider Not In Neurology 02/25/24 documented as of this encounter
--- OUTSIDE RECORDS SUMMARY | 2025-02-23 18:33 | XMS_ITS ---
Author Name [facility] Organization Unknown Results Test Name/Text Value Interpretation Date Range Source POC Glucose 92.0 mg/dL Normal 03/25/2024 65 - 99 H[facility] Vancomycin SerPl-mCnc 18.0 mg/L Normal 03/25/2024 [facility] Time of last dose Information not given Normal 03/25/2024 [facility] POC Glucose 172.0 mg/dL Above high normal 03/25/2024 65 - 99 [facility] POC Glucose 163.0 mg/dL Above high normal 03/25/2024 65 - 99 [facility] POC Glucose 71.0 mg/dL Normal 03/24/2024 65 - 99 [facility] POC Glucose 96.0 mg/dL Normal 03/24/2024 65 - 99 [facility] BUN/Creat SerPl 21.0 Ratio Normal 03/24/2024 10 - 25 HH CCT Chloride SerPl-sCnc 102.0 mmol/L Normal 03/24/2024 98 - 1 07 HHCCT Calcium SerPl-mCnc 9.1 mg/dL Normal 03/24/2024 8.7 - 10.5 HHCCT Sodium SerPl-sCnc 135.0 mmol/L Below low normal 03/24/2024 1 36 - 145 HHCCT Anion Gap Bld-sCnc 10.0 Normal 03/24/2024 7 - 17 HHCCT GFR/BSA.pred SerPlBld [id number] 59.0 Below low normal 03/24/2024 59 - HHCCT CO2 SerPl-sCnc 23.0 mmol/L Normal 03/24/2024 22 - 33 HH CCT Creat SerPl-mCnc 1.3 mg/dL Normal 03/24/2024 0.5 - 1.3 HH CCT Potassium SerPl-sCnc 5.3 mmol/L Normal 03/24/2024 3.4 - 5.3 HHCCT BUN SerPl-mCnc 27.0 mg/dL Above high normal 03/24/2024 8 - 2 1 HHCCT Glucose SerPl-mCnc 197.0 mg/dL Above high normal 03/24/2024 65 - 99 HHCCT MCHC RBC Auto-mCnc 31.3 g/dL Normal 03/24/2024 30 - 36 HHCCT MCH RBC Qn Auto 27.2 pg Normal 03/24/2024 27 - [address] RBC num Bld Auto 3.16 Mil/uL Below low normal 03/24/2024 4.5 - 6.2 HHCCT WBC num Bld Auto 5.7 Thou/uL Normal 03/24/2024 4 - 11 H[facility] Platelet num Bld Auto 414.0 Thou/uL Normal 03/24/2024 150 - 450 H[facility]CT PMV Bld Auto 10.0 fL Normal 03/24/2024 7.5 - 12.5 HHCCT MCV RBC Auto 87.0 fL Normal 03/24/2024 80 - 100 HHCCT Hct VFr Bld Auto 27.5 % Below low normal 03/24/2024 39 - 54 HHCCT Hgb Bld-mCnc 8.6 g/dL Below low normal 03/24/2024 13 - 17.7 HHCCT RDW RBC Auto-Rto 14.9 % Above high normal 03/24/2024 11.5 - 14.5 HHCCT POC Glucose 150.0 mg/dL Above high normal 03/24/2024 65 - 99 HHCCT POC Glucose 170.0 mg/dL Above high normal 03/24/2024 65 - 99 HHCCT POC Glucose 168.0 mg/dL Above high normal 03/24/2024 65 - 99 HHCCT POC Glucose 119.0 mg/dL Above high normal 03/23/2024 65 - 99 HHCCT POC Glucose 121.0 mg/dL Above high normal 03/23/2024 65 - 99 HHCCT Sodium SerPl-sCnc 131.0 mmol/L Below low normal 03/23/2024 1 36 - 145 HHCCT Potassium SerPl-sCnc 5.0 mmol/L Normal 03/23/2024 3.4 - 5.3 HHCCT Glucose SerPl-mCnc 171.0 mg/dL Above high normal 03/23/2024 65 - 99 HHCCT GFR/BSA.pred SerPlBld [id number] 73.0 Normal 03/23/2024 59 - HHCCT BUN SerPl-mCnc 28.0 mg/dL Above high normal 03/23/2024 8 - 2 1 HHCCT Calcium SerPl-mCnc 9.3 mg/dL Normal 03/23/2024 8.7 - 10.5 HHCCT CO2 SerPl-sCnc 20.0 mmol/L Below low normal 03/23/2024 22 - 33 HHCCT Anion Gap Bld-sCnc 10.0 Normal 03/23/2024 7 - 17 HHCCT BUN/Creat SerPl 25.0 Ratio Normal 03/23/2024 10 - 25 HH CCT Creat SerPl-mCnc 1.1 mg/dL Normal 03/23/2024 0.5 - 1.3 HH CCT Chloride SerPl-sCnc 101.0 mmol/L Normal 03/23/2024 98 - 1 07 HHCCT POC Glucose 156.0 mg/dL Above high normal 03/23/2024 65 - 99 HHCCT Vancomycin SerPl-mCnc 18.0 mg/L Normal 03/23/2024 HHCCT Time of last dose Information not given Normal 03/23/2024 HHCCT POC Glucose 103.0 mg/dL Above high normal 03/23/2024 65 - 99 HHCCT POC Glucose 151.0 mg/dL Above high normal 03/23/2024 65 - 99 HHCCT POC Glucose 154.0 mg/dL Above high normal 03/22/2024 65 - 99 HHCCT POC Glucose 170.0 mg/dL Above high normal 03/22/2024 65 - 99 HHCCT POC Glucose 235.0 mg/dL Above high normal 03/22/2024 65 - 99 HHCCT POC Glucose 257.0 mg/dL Above high normal 03/22/2024 65 - 99 HHCCT Calcium SerPl-mCnc 8.2 mg/dL Below low normal 03/22/2024 8.7 - 10.5 HHCCT Potassium SerPl-sCnc 5.0 mmol/L Normal 03/22/2024 3.4 - 5.3 HHCCT GFR/BSA.pred SerPlBld [id number] 50.0 Below low normal 03/22/2024 59 - HHCCT Creat SerPl-mCnc 1.5 mg/dL Above high normal 03/22/2024 0.5 - 1.3 HHCCT Anion Gap Bld-sCnc 9.0 Normal 03/22/2024 7 - 17 HHCCT BUN SerPl-mCnc 32.0 mg/dL Above high normal 03/22/2024 8 - 2 1 HHCCT Sodium SerPl-sCnc 128.0 mmol/L Below low normal 03/22/2024 1 36 - 145 HHCCT Chloride SerPl-sCnc 99.0 mmol/L Normal 03/22/2024 98 - 10 7 HHCCT Glucose SerPl-mCnc 216.0 mg/dL Above high normal 03/22/2024 65 - 99 HHCCT CO2 SerPl-sCnc 20.0 mmol/L Below low normal 03/22/2024 22 - 33 HHCCT BUN/Creat SerPl 21.0 Ratio Normal 03/22/2024 10 - 25 HH CCT POC Glucose 177.0 mg/dL Above high normal 03/22/2024 65 - 99 HHCCT POC Glucose 170.0 mg/dL Above high normal 03/22/2024 65 - 99 HHCCT POC Glucose 159.0 mg/dL Above high normal 03/21/2024 65 - 99 HHCCT Creat SerPl-mCnc 1.6 mg/dL Above high normal 03/21/2024 0.5 - 1.3 HHCCT GFR/BSA.pred SerPlBld [id number]-ImGLqc 46.0 Below low normal 03/21/2024 59 - HHCCT POC Glucose 138.0 mg/dL Above high normal 03/21/2024 65 - 99 HHCCT POC Glucose 221.0 mg/dL Above high normal 03/21/2024 65 - 99 HHCCT POC Glucose 238.0 mg/dL Above high normal 03/21/2024 65 - 99 HHCCT POC Glucose 223.0 mg/dL Above high normal 03/21/2024 65 - 99 HHCCT Est. average glucose Bld gHb Est-mCnc 180.0 mg/dL Normal 03/02/2024 HHCCT Hgb A1c MFr Bld 7.9 % Above high normal 03/02/2024 - 5.7 HHCCT Result Not Detected Normal 03/02/2024 - HHCCT Prealb SerPl-mCnc 24.0 mg/dL Normal 03/02/2024 20 - 40 HHCCT Glucose SerPl-mCnc 170.0 mg/dL Above high normal 03/02/2024 65 - 99 HHCCT Creat SerPl-mCnc 1.5 mg/dL Above high normal 03/02/2024 0.5 - 1.3 HHCCT CO2 SerPl-sCnc 22.0 mmol/L Normal 03/02/2024 22 - 33 HH CCT BUN SerPl-mCnc 24.0 mg/dL Above high normal 03/02/2024 8 - 2 1 HHCCT Sodium SerPl-sCnc 133.0 mmol/L Below low normal 03/02/2024 1 36 - 145 HHCCT Potassium SerPl-sCnc 5.4 mmol/L Above high normal 03/02/2024 3.4 - 5.3 HHCCT Chloride SerPl-sCnc 98.0 mmol/L Normal 03/02/2024 98 - 10 7 HHCCT BUN/Creat SerPl 16.0 Ratio Normal 03/02/2024 10 - 25 HH CCT Anion Gap Bld-sCnc 13.0 Normal 03/02/2024 7 - 17 HHCCT GFR/BSA.pred SerPlBld [id number] 50.0 Below low normal 03/02/2024 59 - HHCCT Calcium SerPl-mCnc 9.4 mg/dL Normal 03/02/2024 8.7 - 10.5 HHCCT Transferrin SerPl-mCnc 217.0 mg/dL Normal 03/02/2024 200 - 360 [facility] Platelet num Bld Auto 555.0 Thou/uL Above high normal 03/02/2024 150 - 450 H[facility]CT Neutrophils num Bld Auto 7.74 Thou/uL Above high normal 03/02/2024 2 - 7.5 HHCCT PMV Bld Auto 10.2 fL Normal 03/02/2024 7.5 - 12.5 HHCCT Eosinophil/leuk NFr Bld Auto 1.1 % Normal 03/02/2024 HHCCT Hgb Bld-mCnc 11.9 g/dL Below low normal 03/02/2024 13 - 17.7 HHCCT Lymphocytes num Bld Auto 1.97 Thou/uL Normal 03/02/2024 1.5 - 4.5 HHCCT Eosinophil num Bld Auto 0.12 Thou/uL Normal 03/02/2024 0 - 0.7 HHCCT Monocytes num Bld Auto 0.74 Thou/uL Normal 03/02/2024 0.2 - 1.5 HHCCT Neutrophils/leuk NFr Bld Auto 72.5 % Normal 03/02/2024 HHCCT Hct VFr Bld Auto 37.3 % Below low normal 03/02/2024 39 - 54 HHCCT MCV RBC Auto 86.0 fL Normal 03/02/2024 80 - 100 H[facility]CT WBC num Bld Auto 10.7 Thou/uL Normal 03/02/2024 4 - 11 HHCCT MCH RBC Qn Auto 27.5 pg Normal 03/02/2024 27 - [address] RBC num Bld Auto 4.33 Mil/uL Below low normal 03/02/2024 4.5 - 6.2 HHCCT Basophils/leuk NFr Bld Auto 0.7 % Normal 03/02/2024 HHCCT Monocytes/leuk NFr Bld Auto 6.9 % Normal 03/02/2024 HHCCT RDW RBC Auto-Rto 14.3 % Normal 03/02/2024 11.5 - 14.5 HHCCT MCHC RBC Auto-mCnc 31.9 g/dL Normal 03/02/2024 30 - 36 HHCCT Basophils num Bld Auto 0.08 Thou/uL Normal 03/02/2024 0 - 0.2 HHCCT Lymphocytes/leuk NFr Bld Auto 18.4 % Normal 03/02/2024 HHCCT Imm Granulocytes/leuk NFr Bld Auto 0.4 % Normal 03/02/2024 HHCCT Imm Granulocytes num Bld Auto 0.04 Thou/uL Normal 03/02/2024 0 - 0.1 HHCCT History of Medication Use Medication Directions Dispensed Refills Start Date End Date Stat celeCOXIB (CeleBREX) 200 MG capsule Take 1 capsule (200 mg total) by mouth 2 (two) times a day. 08/02/2024 active Lantus SoloStar 100 UNIT/ML prefilled pen injection Inject 38 Units under the skin daily. 03/25/2024 active methocarbamol (ROBAXIN) 750 MG tablet Take 1 tablet (750 mg total) by mouth 4 (four) times a day as needed for muscle spasms. 03/24/2024 04/24/2024 active polyethylene glycol (miraLAx) 17 g packet Take 1 packet (17 g total) by mouth daily. 03/24/2024 04/24/2024 active gabapentin (NEURONTIN) 300 MG capsule Take 1 capsule (300 mg total) by mouth 3 (three) times a day. 03/24/2024 active oxyCODONE (ROXICODONE) 5 MG immediate release tablet Take 1-2 tablets (5-10 mg total) by mouth every 4 (four) hours as needed for moderate pain or severe pain. Max Daily Amount: 60 mg 03/24/2024 active metFORMIN (GLUCOPHAGE) 1000 MG tablet 1 tablet (1,000 mg total) by Mouth/Oral Cavity route every 12 hours. 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 active atenolol (TENORMIN) 50 MG tablet Take 1 tablet (50 mg total) by mouth every morning. active Cholecalciferol 250 MCG (71876 UT) Cap Take 50,000 Units by mouth once a week. active FLUoxetine (PROzac) 20 MG capsule Take 3 capsules (60 mg total) by mouth every morning. active oxyCODONE (ROXICODONE) 5 MG immediate release tablet Take 1 tablet (5 mg total) by mouth every 4 (four) hours as needed. active Allergies Allergen Reaction Severity Comment Documented Date Source Statu s AMOXICILLIN RASH/DERMATITIS NAUSEA, VOMITING. 02/09/2024 CCT active Problems Problem Status Onset Date Problem Type Date of Resolution Source Stage 3b chronic kidney disease active 2024-02-24 ProblemAct H[facility] Gastroesophageal reflux disease active 2024-02-24 ProblemAct [facility] Chronic pain of left ankle active EncounterDiagnosisAct HHCCT Pure hypercholesterolemia active 2024-02-24 ProblemAct H[facility] Osteomyelitis active 2024-03-21 ProblemAct [facility] T Osteomyelitis of ankle or foot, right, acute active 2024-02-24 ProblemAct H[facility] HERSON (obstructive sleep apnea) active 2024-02-24 ProblemAct [facility] Anemia active 2024-03-24 ProblemAct [facility] Diabetic polyneuropathy associated with type 2 diabetes mellitus active 2024-02-24 ProblemAct H[facility] Benign prostatic hyperplasia with nocturia active 2024-02-24 ProblemAct HH CCT HTN (hypertension) active 2024-02-24 ProblemAct [facility] Hyponatremia active 2024-03-23 ProblemAct [facility] Depression active 2024-03-23 ProblemAct [facility] Type 2 diabetes mellitus, with long-term current use of insulin active 2024-02-24 ProblemAct [facility] CKD (chronic kidney disease) active 2024-03-23 ProblemAct [facility] Encounters Encounter Type Encounter Reason Primary Diagnosis Location Date Ambulatory Pain in right ankle and joints of right foot Pain in right ankle and joints of right foot [facility] 07/12/2024 Ambulatory Pain in right ankle and joints of right foot Pain in right ankle and joints of right foot [facility] 05/31/2024 [facility] 05/03/2024 Ambulatory Other acute osteomyelitis, right ankle and foot Other acute osteomyelitis, right ankle and foot [facility] 05/03/2024 [facility] 04/12/2024 Ambulatory Other acute osteomyelitis, right ankle and foot Other acute osteomyelitis, right ankle and foot [facility] 04/12/2024 [place] 03/29/2024 [facility] 03/29/2024 Ambulatory Other acute osteomyelitis, right ankle and foot Other acute osteomyelitis, right ankle and foot [facility] 03/29/2024 Ambulatory Other acute osteomyelitis, right ankle and foot Other acute osteomyelitis, right ankle and foot [facility] 03/21/2024 Ambulatory Other acute osteomyelitis, right ankle and foot Other acute osteomyelitis, right ankle and foot [facility] 03/01/2024 [facility] 02/09/2024 Ambulatory Pain in right ankle and joints of right foot Pain in right ankle and joints of right foot [facility] 02/09/2024 Care Team Organization Name Specialty Phone Email Start Date End Da stacy [facility] 02/09/2024 08/31/2024 [facility] Primary [facility] 02/09/2024 [facility] 02/03/2024
--- OUTSIDE RECORDS SUMMARY | 2025-02-23 18:33 | XMS_ITS | Encounter Summary ---
Author Organization [facility] Address [address] [place] [address] Care Team Providers Care Movie Extra Name Role Phone Santi Castaneda MD Unavailable Marcelo Lopez MD Primary Care Provider [phone] Nico Smith MD Unavailable [phone] System, Provider Not In Unavailable Unavaila ble System, Provider Not In Unavailable Unavaila ble System, Provider Not In Unavailable Unavaila ble Encounter Details Date Type Department Care Team (Late st Contact Info) Description 04/25/2024 Scanned Document [facility] [address] [place] [address] [place] [address] [facility] [address] [place] [address] Social History Tobacco Use Types Packs/Day Years [...] on filedocumented in this encounter Care Teams Movie Extra Relationship Specialty Start Date End Date Marcelo Lopez MD [address] [place] [address] [address] [place] [address] PCP - General Internal Medicine 02/22/24 Santi Castaneda MD [address] [place] [id number] Surgery, Orthopedic 02/22/24 Nico Smith MD [address] [facility] [address] [place] [address] Physician Nephrology 02/22/24 System, Provider Not In 02/25/24 System, Provider Not In Infectious Disease 02/25/24 System, Provider Not In Neurology 02/25/24 documented as of this encounter
--- OUTSIDE RECORDS SUMMARY | 2025-02-23 18:34 | XMS_ITS | Clinical Summary ---
Author Organization [facility] Address [address] [place] [address] Phone Care Team Providers Care Die Sizer Name Role Phone Marcelo Lopez MD Primary Care Provider [phone] Allergies Active Allergy Reactions Criticality Noted Date [...] each day 90 tablet 3 05/05/2022 Active Empagliflozin (Jardiance) 10 MG tablet Take 10 mg by mouth 1 (one) time each day in the morning 90 tablet 3 01/23/2025 04/23/20 25 Active Active Problems Problem Noted Date Diagnosed Date Hyperlipidemia 09/29/2024 Anemia 03/24/2024 Hyponatremia 03/23/2024 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 03/16/2024 Depressive disorder 02/24/2024 Polyneuropathy due to type 2 diabetes mellitus 0 02/24/2024 Disorder of nervous system due to type [...] disease, or unspecified chronic kidney disease 02/21/202202/21 Encounters Date Type Department Care Team Description 01/23/2025 4:15 PM EDT Office Visit [facility] [address] [place], [place] [address] Nico Smith MD Stage 3a chronic kidney disease (HCC) (Primary Dx); Type 2 diabetes mellitus with diabetic chronic kidney disease (HCC); Persistent proteinuria from Last 3 Months Immunizations Immunization Administration Dates Next Due Influenza [...] Sign Reading Time Taken Comments Blood Pressure 142/79 01/23/2025 4:09 PM EDT Pulse 74 01/23/2025 4:09 PM EDT Temperature - - Respiratory Rate - - Oxygen Saturation 92% 01/23/2025 4:09 PM EDT Inhaled Oxygen Concentration - - Weight 109 kg (240 lb 3.2 oz) 01/23/2025 4:09 PM EDT Height - - Body Mass Index - - Plan of Treatment Upcoming Encounters Date Type Department Care Team (Late st Contact Info) Description 07/17/2025 2:00 PM EST Office Visit [facility] [address] [place] [address] Nico Smith MD [address] [facility] [address] [place] [phone] Health Maintenance Due Date Last Done Comments Colorectal Cancer Screening: Annual FOBT 2003 Colorectal Cancer Screening: Colonoscopy 2003 Colorectal Cancer Screening: Sigmoidoscopy 2003 Pneumococcal Vaccine: 50+ Years (2 of 2 - PCV) 05/26/2017 05/26/2016 Diabetes: Ophthalmology Exam 02/21/2022 Diabetes: Pedal Pulse Checked 02/21/2022 Diabetes: Sensory Foot Exam 02/21/2022 Diabetes: Visual Foot Exam 02/21/2022 Diabetes: Hemoglobin A1C 05/31/2024 03/01/2024, 05/0 07/2021 Influenza Vaccine (#1) 2025 0, 04/25/2019, 03/16/2019, Additional history exists Pneumococcal Vaccine: [...] 10.0 8.7 - 10.7 mg/dL eGFR Non-Afr Palestinian 45 Hemoglobin A1C 6.2(A) 4.0 - 6.0 Triglycerides 293 Cholesterol, Total 230 10/14/2021 Historical Provider LAB BLOOD ORDERABLES Mariluz l Result from Last 3 Months or Most Recently Relevant to Health Maintenance Insurance [facility] Choice ([id number]) [facility] Choice ([id number]) Care Teams Die Sizer Relationship Specialty Start Date End Date Marcelo Lopez MD [address] [place] [address] PCP - General Internal Medicine 11/07/21
--- OUTSIDE RECORDS SUMMARY | 2025-02-23 18:34 | XMS_ITS | Clinical Summary ---
Author Organization [facility] Address [address] [facility] [place] [address] Care Team Providers Care Special Police Name Role Phone Santi Castaneda MD Unavailable [phone] Marcelo Lopez MD Primary Care Provider [phone] Nico Smith MD Unavailable [phone] System, Provider Not In Unavailable Unavaila ble System, Provider Not In Unavailable Unavaila ble System, Provider Not In Unavailable Unavaila ble Allergies Active Allergy Reactions Criticality Noted Date Comments Amoxicillin Rash/Dermatitis Low 02/09/2024 NAUSEA, VOMITING. Medications albuterol (PROVENTIL HFA; VENTOLIN HFA) 108 (90 [...] TO TEST BLOOD SUGAR THREE TIMES DAILY 4 Active FLUoxetine (PROzac) 20 MG capsule Take 3 capsules (60 mg total) by mouth every morning. Active fluticasone (Flonase Allergy Relief) 50 mcg/spray nasal spray 2 sprays into each nostril daily as needed. 4 Active senna (Senna-Time) 8.6 MG Tab tablet Take 2 tablets by mouth daily as needed. Active busPIRone (BUSPAR) 5 MG tablet Take 1 tablet (5 mg total) by mouth 2 (two) times a day. Active Vitamin B6 50 MG tablet Take 1 tablet (50 mg total) by mouth every morning. 4 Active cyanocobalamin (VITAMIN B-12) 1000 MCG tablet Take 1 tablet (1,000 mcg total) by mouth daily. Active Cholecalciferol 250 MCG (54362 UT) Cap Take 50,000 Units by mouth once a week. Active irbesartan (AVAPRO) 300 MG tablet 4 Active metFORMIN (GLUCOPHAGE) 1000 MG tablet 1 tablet (1,000 mg total) by Mouth/Oral Cavity route every 12 hours. 4 Active OMEprazole (PriLOSEC) 40 MG capsule 1 capsule (40 mg total) by Mouth/Oral Cavity route every 12 hours. 4 Active aspirin enteric coated (ECOTRIN LOW STRENGTH) 81 MG EC tabletIndicatio ns:Osteomyeliti s of ankle or foot, right, acute (HCC) Take 1 tablet (81 mg total) by mouth 2 times a day. 4 Active senna-docusate (SENNA-S) 8.6-50 MGIndications:O steomyelitis of ankle or foot, right, acute (HCC) Take 1 tablet by mouth daily. 4 Active polyethylene glycol (miraLAx) 17 g packetIndicatio ns:Osteomyeliti s of ankle or foot, right, acute (HCC) Take 1 packet (17 g total) by mouth daily. 4 Active methocarbamol (ROBAXIN) 750 MG tabletIndicatio ns:Osteomyeliti s of ankle or foot, right, acute (HCC) Take 1 tablet (750 mg total) by mouth 4 (four) times a day as needed for muscle spasms. 4 Active gabapentin (NEURONTIN) 300 MG capsuleIndicati ons:Osteomyelit is of ankle or foot, right, acute (HCC) Take 1 capsule (300 mg total) by mouth 3 (three) times a day. 4 Active oxyCODONE (ROXICODONE) 5 MG immediate release tabletIndicatio ns:Osteomyeliti s of ankle or foot, right, acute (HCC) Take 1-2 tablets (5-10 mg total) by mouth every 4 (four) hours as needed for moderate pain or severe pain. Max Daily Amount: 60 mg 4 Active acetaminophen (TYLENOL) 325 MG tabletIndicatio ns:Osteomyeliti s of ankle or foot, right, acute (HCC) Take 3 tablets (975 mg total) by mouth every 6 (six) hours around the clock. 4 Active Lantus SoloStar 100 UNIT/ML prefilled pen injectionIndica tions:Osteomyel itis of ankle or foot, right, acute (HCC) Inject 38 Units under the skin daily. 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 Clinic: Located in: [facility] Address: [facility], [address] [place] [address] 1 each 4 Active SUPPLY DME MISCIndications :Pain in right ankle and joints of right foot RIGHT FOOT CUSTOM NIGHT SPLINT DX: PLANTAR FASCIITIS [facility] Clinic: [address] [place] [address] 1 each 5 Active celeCOXIB (CeleBREX) 200 MG capsuleIndicati ons:Chronic pain of left ankle TAKE 1 CAPSULE(200 MG) BY MOUTH TWICE DAILY 180 capsule 1 5 Active Active Problems Problem Noted Date Diagnosed [...] EDT): Managed with Bupropion, Buspirone and Fluoxetine. Family History Medical History Relation Name Comments [...] 56 03/25/2024 6:38 AM EDT Temperature 36.1 C (97 F) 03/25/2024 6:38 AM EDT Respiratory Rate 18 [...] - Risk 60-74 years 1-dose series) 2014 Hemoglobin A1C 08/29/2024 03/01/2024 Influenza Vaccine 01/13/2025 03/20/2020, , 04/25/2019, Additional history exists COVID-19 Vaccine ( season) 2025 07/10/2020, 06/19/2020 Creatinine with GFR 03/24/2025 03/24/2024, 03/23/2024, 03/22/2024, Additional history exists Advance Care Planning Completed 03/23/2024 Hepatitis B Vaccines Aged Out No long er eligible based on patient's age to complete this topic Medical Devices Implanted Type Area Acid Remover Device Identifier Shelf Expiration Date Model / Serial / Lot 620-005 Filler Bone Void 5cc 12.5cc Calcium Slf Stimulan Rpd Cure - [id number] Implanted:Qty : 1 on 03/21/2024 by Santi Castaneda MD at [facility] Void Filler Right: Foot [employer] - A BTG INT [id number] 11/12/2025 620-005 / / [id number] Procedures Procedure Name Priority Date/Time Associated Diagnosis [...] 65 - 99 mg/dL 03/24/2024 9:50 AM EDT [facility] Comment:Fasting: <100 mg/dL, Non-Fasting: <200 mg/dL (ADA 2005) Blood Urea Nitrogen (BUN) 27(H) 8 - 21 mg/dL 03/24/2024 9:50 AM EDT [facility] Creatinine 1.3 0.5 - 1.3 mg/dL 03/24/2024 9:50 AM [facility] eGFR 59(L) >59 03/24/2024 9:50 AM [facility] Comment:CKD-EPI (2020) in mL /min/1.73 sq meters. Sodium 135(L) 136 - 145 mmol/L 03/24/2024 9:50 AM [facility] Potassium 5.3 3.4 - 5.3 mmol/L 03/24/2024 9:50 AM [facility] Chloride 102 98 - 107 mmol/L 03/24/2024 9:50 AM [facility] CO2 23 22 - 33 mmol/L 03/24/2024 9:50 AM [facility] Anion Gap 10 7 - 17 03/24/2024 9:50 AM [facility] Calcium 9.1 8.7 - 10.5 mg/dL 03/24/2024 9:50 AM [facility] BUN/Creatinine Ratio 21 10.0 - 25.0 Ratio 03/24/2024 9:50 AM [facility] Blood (Plasma/Serum) 03/24/2024 9:02 AM EDT 03/24/2024 9:22 AM EDT us Gissell VAIL LAB BLOOD [place] [address], [place] [address] * (ABNORMAL) Hemoglobin A1c with Estimated Average Glucose (03/01/2024 3:23 PM EDT) Hemoglobin A1C 7.9(H) <5.7 % 03/02/2024 12:58 AM [facility] Comment: A1c% Interpretation 5.7 - 6.0 Increase risk of diabetes 6.1 - 6.4 Higher risk of diabetes > or = 6.5 Consistent with diabetes Diabetes Care, 33(Supp 1):S1-S61, 2009 Estimated Average Glucose 180 mg/dL 03/02/2024 12:58 AM [facility] Blood Blood specimen / Unknown 03/01/2024 3:23 PM EDT 03/01/2024 9:36 PM EDT Sheridan Archer APRN LAB BLOOD ORDERABLES Final R esult [address] [address], [facility] [address] [place] [address] from Last 3 Months or Most Recently Relevant to Health Maintenance Insurance [facility] MEDICARE [facility] MEDICARE [facility] MEDICARE Advance Directives Documents on File Type Date Recorded 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 Advance Directive-Scan 03/23/2024 aDng [employer] PROXY FORM / / 03/23/2024 * Full Code (Latest Code Status on File) Date Activated Date Inactivated Comments 03/21/2024 1:41 PM * Full Code Date Activated Date Inactivated Comments 03/21/2024 8:35 AM 03/21/2024 1:41 PM Care Teams Special Police Relationship Specialty Start Date End Date Marcelo Lopez MD [address] [place] [address] [address] [place] [address] PCP - General Internal Medicine 02/22/24 Santi Castaneda MD [address] [place] [address] Surgery, Orthopedic 02/22/24 Nico Smith MD [address] [facility] [address] [place] [address] Physician Nephrology 02/22/24 System, Provider Not In 02/25/24 System, Provider Not In Infectious Disease 02/25/24 System, Provider Not In Neurology 02/25/24
--- OUTSIDE RECORDS SUMMARY | 2025-02-23 18:34 | XMS_ITS | Clinical Summary ---
Author Organization [facility] Address [address] [facility] [address] [place] [address] Phone Care Team Providers Care Nutritional Assistant Name Role Phone Marcelo Lopez MD Primary Care Provider [phone] Allergies Active Allergy Reactions Criticality Noted Date Comments Penicillins 12/18/2018 Medications aspirin 81 MG EC tablet 1 tablet Active atenolol (TENORMIN) 50 mg tablet Take 50 mg by mouth daily. 11/30/19 21 Active FLUoxetine (PROZAC) 10 MG capsule Take 10 mg by mouth 3 (three) times a day. 11/24/19 21 Active fluticasone propionate (FLONASE) 50 mcg/actuation nasal spray USE 1 SPRAY IN EACH NOSTRIL DAILY 11/04/19 21 Active traZODone (DESYREL) 50 MG tablet Take 50 mg by mouth nightly at bedtime. at bedtime. 11/05/19 21 Active omeprazole (PRILOSEC) 40 MG capsule TAKE 1 CAPSULE BY MOUTH EVERY AM 11/04/19 21 Active BD INSULIN PEN NEEDLE UF SHORT 31 gauge x /16 Ndle USE 1 TO 2 DIRECTED 11/28/19 21 Active irbesartan (AVAPRO) 300 MG tablet Take 300 mg by mouth daily. 10/23/19 21 Active amLODIPine (NORVASC) 5 MG tablet Take 1 tablet by mouth every morning. 10/08/19 23 Active cyanocobalamin, vitamin B-12, 1000 MCG tablet Take 1 tablet by mouth every morning. 08/26/19 23 Active mirtazapine (REMERON) 15 MG tablet Take 15 mg by mouth nightly at bedtime. at bedtime. 10/22/19 23 Active SENNA 8.6 mg tablet TAKE 1 TABLET BY MOUTH EVERY DAY NEEDED FOR CONSTIPATION 07/31/19 23 Active tamsulosin (FLOMAX) 0.4 mg Cap Take 0.4 mg by mouth. 03/25/20 22 Active thiamine (VITAMIN B-1) 100 MG tablet Take 1 tablet by mouth every morning. 08/26/19 23 Active doxycycline monohydrate (MONODOX) 100 MG capsule Take 1 capsule (100 mg total) by mouth 2 (two) times a day. 20 capsule 11/06/19 23 Active albuterol 90 mcg/actuation inhaler INHALE 2 PUFFS BY MOUTH EVERY 6 HOURS NEEDED FOR SHORTNESS OF BREATH OR WHEEZING Active DEXCOM G6 SENSOR Andressa as directed. 08/02/19 Active celecoxib (CELEBREX) 200 MG capsule Take 200 mg by mouth 2 (two) times a day. 08/02/19 Active cholecalciferol, vitamin D3, (VITAMIN D3) 250 mcg (10,000 unit) capsule Take 50,000 Units by mouth once a week. Active oxyCODONE 5 MG immediate release tablet TAKE 1 TABLET BY MOUTH EVERY 4 TO 6 HOURS NEEDED. TAKE ONLY NEEDED FOR SEVERE PAIN Active pyridoxine, vitamin B6, (B-6) 50 MG tablet Take 1 tablet by mouth daily. 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 His LDL was 167 mg/dL and HDL was 30 show his cardiac risk ratio is elevated. He is taking rosuvastatin 10 I will increase it to 40 mg. He should repeat a lipid panel prior to the follow-up visit. Type 2 diabetes mellitus wit h hyperglycemia, with long-term current use of insulin 09/29/2024 Type 2 diabetes mellitus wit h diabetic microalbuminuria, with long-term current use of insulin 09/29/2024 Type 2 diabetes mellitus wit h diabetic polyneuropathy, with long-term current use of insulin 03/16/2024 Assessment & Plan (09/29/2024 11:23 AM EDT): Uncontrolled. Hemoglobin A1c is 8.9% when checked on 09/26/2024. He has been off the CGM for 1 month and has not been using Humalog. He is concerned about using metformin so I told him to just stop it. We can always adjust the insulin. In fact I asked him to increase the Lantus to 60 units. He should continue his Humalog correction scale so he needs to work on getting the sensors from the pharmacy. Apparently he has been having problems attaching the sensor and activating it and he informing that he is going to work with the pharmacist to have it implanted so he can know what to do. I would like to add other medications such as pioglitazone since he does not want to use metformin. Informs me that he does not have congestive heart failure and pioglitazone is an insulin cutter operator it will help to insulin worked better. He cannot afford GLP-1 agonist. SGLT2 inhibitors may be too expensive as well and furthermore I do not want to prescribe this because his glucose levels are too high and if I were to give him this then he would most likely urinate too much. SGLT2 inhibitor should be used when the hemoglobin A1c drops below 8% in order to prevent polyuria. So I would not prescribe this. He states that he does not need the Humalog and usually this is prescribed through Dr. Lopez. Type 2 diabetes mellitus wit h stable proliferative retinopathy of both eyes, with long-term current use of insulin 03/16/2024 Assessment & Plan (06/21/2024 10:34 AM EST): Uncontrolled. The CGM shows average glucose of 265 this correlates with a hemoglobin A1c of 10.9% previously he was at 7.9 so he appears that he is doing worse. I asked him to increase the Lantus up to 50 units. I gave him a Humalog correction scale starting at 70-100 = 8 units increasing by 2 units. Also added metformin 500 mg 1 tablet twice a day with food. He wanted to know what to if his Dexcom CGM continues to be how much insulin he should administer. I told him that he should administer Humalog with the meal 3 times a day. If his glucose remains above 252 hours after eating then he can do another bolus based on a correction of 70-100 = 1 unit increasing by 1 unit every 50 mg/dL. He will get both correction scale when he schedules his follow-up visit. He informs me that his primary care physician already sent a prescription for Humalog so I only renew the Lantus and metformin. He will follow in 3 months time. The only issue is that I do not have his lab work that he did at [facility]. I will ask medical administrator to request this. I did need to see his lipid panel urine microalbumin and of course we need to monitor the hemoglobin A1c. Assessment & Plan (03/16/2024 11:50 AM EDT): Uncontrolled. Hemoglobin A1c 7.9%. Presently he is only using Lantus 45 units states that his fasting glucose are in the 130s to 140 mg/dL. He is possibly having postprandial hyperglycemia. He was prescribed Humalog and was on a correction scale but has not used it in the last 3 months. I think that the best option would be to continue Humalog correction scale postsurgically. This is what they will use in the hospital. Today I touched on using GLP-1 agonist which are weekly injectable medications. He has no contraindications to GLP-1 agonist such as pancreatitis or medullary thyroid carcinoma and it may be easier for him to use a GLP-1 agonist weekly as opposed to Humalog administration 3 times a day. He will not be allowed to use GLP-1 agonist in the hospital. They are not going to allow him to use metformin either because of the upcoming surgery. So for now we will continue his current administration of Lantus. He informs me that he may not be able to afford GLP-1 agonist. Asked him to return for follow-up in 3 months and to obtain lab work fasting prior to the follow-up visit. Disorder of nervous system due to type 2 diabete s mellitus 11/05/2022 11/05/2022 Renal osteodystrophy 05/05/2022 11/05/2022 Type 2 diabetes mellitus wit h diabetic chronic kidney disease 03/25/2022 11/05/2022 Hyperkalemia 02/21/2022 11/05/2022 Gastroesophageal reflux disease 02/21/2022 11/05/2022 Proteinuria 02/28/2014 11/05/2022 Hypertension 02/28/2014 11/05/2022 Mononeuritis 08/18/2013 11/05/2022 Encounters Date Type Department Care Team Description 01/17/2025 Refill [facility] [address] [place] [address] Aravind Burnham, Medication Refill from Last 3 Months Immunizations Immunization Administration Dates Next Due COVID-19 (Pre-04/06) Pfizer Vaccine, mRNA, PF ,06/19/2020 INFLUENZA, SPLIT VIRUS, TRIVALENT W/ PRESERVATIV E IM 03/15/2015 Influenza High-Dose Quadrivalent Preservative Fr ee IM 03/20/2020 Influenza High-Dose Trivalent Preservative Free IM 04/25/2019 Influenza Quadrivalent MDCK Preservative Free IM 03/13/2018 Influenza Quadrivalent Preservative Free IM 07/2018 Influenza Quadrivalent w/ Preservative IM 2016,04/22/2016 Pneumococcal polysaccharide PPSV23 05/26/2016 Zoster live 12/31/2015 Family History Medical History Relation Comments Pulmonary embolism Father Diabetes Mother Hypertension Mother Relation Status Comments Father Mother Social History Tobacco Use Types Packs/Day Years Used Date Smoking Tobacco: Never Smokeless Tobacco: Never Tobacco Cessation:Counseling Given: Not Answered Alcohol Use Standard Drinks/Week Comments Yes 0 [...] PM EDT Sexual Orientation Not on file Last Filed Vital Signs Vital Sign Reading Time Taken Comments Blood Pressure 120/60 09/29/2024 11:00 AM EDT Pulse 60 09/29/2024 11:00 AM EDT Temperature 36.7 C (98 F) 11/05/2022 8:16 AM EDT Respiratory Rate 20 11/05/2022 8:16 AM EDT Oxygen Saturation 97% 09/29/2024 11: 00 AM EDT Inhaled Oxygen Concentration - - Weight 105.1 kg (231 lb 12.8 oz) 2024 11:00 AM EDT Height 186.1 cm (6' 1.27 ) 06/21/2024 9:54 AM ES T Body Mass Index 30.36 06/21/2024 9:54 AM EST Plan of Treatment Health Maintenance Due Date Last Done Comments Adult Td,Tdap Booster 1954 DEPRESSION SCREENING 1966 HEPATITIS C SCREENING 1972 COLOGUARD 1999 COLONOSCOPY 1999 COLORECTAL CANCER SCREENING 1999 FIT TEST 1999 FOBT 1999 SIGMOIDOSCOPY 1999 VIRTUAL COLONOSCOPY 1999 RSV VACCINE (1 - Risk 60-74 years 1-dose series) 2014 ZOSTER VACCINES (2 of 3) 02/25/2016 12/31/2015 PNEUMOCOCCAL VACCINES (50+ years) (2 of 2 - PCV) 05/26/2017 05/26/2016 POTASSIUM LEVEL 12/19/2019 12/18/2018, 12/18/2018 DIABETIC EYE EXAM 11/05/2022 HEMOGLOBIN A1C 08/29/2024 03/01/2024, 03/01/2024 INFLUENZA VACCINE (#1) 2025 2, 03/11/2021, 03/20/2020, Additional history exists COVID-19 VACCINE (2024- season) 2025 04/23/2022, 04/26/2021, 07/10/2020, Additional history exists BLOOD PRESSURE 03/31/2025 09/29/2024 CREATININE LEVEL 06/16/2025 06/16/2024, 12/2023, 12/18/2018, Additional history exists SMOKING STATUS SCREENING (Once After 26 Yrs) Completed 09/29/2024 HEPATITIS A VACCINES Aged Out No long er eligible based on patient's age to complete this topic HIB VACCINES Aged Out No longer eligi ble based on patient's age to complete this topic MENINGOCOCCAL VACCINES (ACWY) Aged Out No longer eligible based on patient's age to complete this topic MENINGOCOCCAL VACCINES (B) Aged Out N o longer eligible based on patient's age to complete this topic Medical Devices Not on file Procedures Procedure Name Priority Date/Time Associated Diagnosis Comments COMPREHENSIVE METABOLIC PANEL Routine 06/16/2024 9:08 AM EST BASIC METABOLIC PANEL STAT 12/18/2018 2:09 PM EDT from Last 3 Months or Most Recently Relevant to Health Maintenance Results * Comprehensive metabolic panel (06/16/2024 9:08 AM EST) us Historical Provider LAB BLOOD ORDERABLES Mariluz l Result * (ABNORMAL) Basic metabolic panel (12/18/2018 2:09 PM EDT) SODIUM 124(L) 133 - 146 mmol/L [facility] CHLORIDE 87(L) 96 - 108 mmol/L [facility] POTASSIUM 5.4(H) 3.3 - 5.1 mmol/L [facility] CO2 27 21 - 35 mmol/L [facility] BUN 16 6 - 19 mg/dL [facility] CREATININE 1.10 0.5 - 1.5 mg/dL [facility] GLUCOSE 106(H) 70 - 99 mg/dL [facility] CALCIUM 9.4 8.4 - 10.3 mg/dL [facility] EGFR 71 >59 mL/min/1.7 3m2 [facility] Comment:If patient is black, multiply result by 1.159. Estimated glomerular filtration rate calculated using the CKD-EPI equation. ANION GAP 15 10 - 20 mmol/L [facility] Blood 12/18/2018 2:09 PM EDT 12/18/2018 2:19 PM EDT Maria Guadalupe Rodriguez MD, PhD LAB BLOOD ORDERABLE S Final Result [facility] [address] [place] [address] from Last 3 Months or Most Recently Relevant to Health Maintenance Insurance [facility] NON NSPG PCP [employer] [facility] [address] MEDIC[address] REPLACEMENT Member Subscriber Plan / Payer (Ef fective 2023-Present) Name:Johann Irwin Relation to Subscriber:Self Name:Johann Irwin Payer ID:[id number] (NAIC) Type:Medicare Address: [place] [id number] [place] [id number] [facility] NON NSPG PCP [employer] Member Subscriber Plan / Payer (Ef fective 2018-Present) Name:Johann Irwin Relation to Subscriber:Self Name:Johann Irwin Payer ID:[id number] Type:Transportation Group Address: [address] MEDICARE REPLACEMENT [facility] NON NSPG PCP [place] [employer] Member Subscriber Plan / Payer (Ef fective 2018-Present) Name:Johann Irwin Relation to Subscriber:Self Name:Johann Irwin Payer ID:[id number] Type:O Address: [address] MEDICARE [place] [address] NON NSPG PCP [employer] [place] [address] [facility] NON NSPG PCP [employer] [address] MEDICARE REPLACEMENT [place] [id number] [facility] NON NSPG PCP [employer] [facility] Address: [facility] [address] MEDICARE REPLACEMENT [place] [id number] [facility] NON NSPG PCP [employer] [facility] Address: [address] MEDICARE REPLACEMENT [employer] NON NSPG PCP [employer] Member Subscriber Plan / Payer (Ef fective 2018-Present) Name:Johann Irwin Relation to Subscriber:Self Name:Johann Irwin Payer ID:[id number] Type:O Address: [address] MEDICARE REPLACEMENT [employer] NON NSPG PCP [employer] [facility] AARP MEDICARE REPLACEMENT Care Teams Nutritional Assistant Relationship Specialty Start Date End Date Marcelo Lopez MD [address] [place] [address] [place] [address] PCP - General Internal Medicine 12/18/18 Additional Source Comments The information contained in this document represents components of the legal health record. It is not the complete legal health record.[facility]
== END 2025-02-23 15:59 | disposition home or self-care (01) ==
LOC: HO.HMCH 15:09
PROVIDERS: PCP Internal Medicine
DX: Z13.9 Encounter for screening, unspecified (principal)

== ENCOUNTER → 2025-02-23 15:08 | Outpatient (BNVA) | payer MEDICARE, MEDICAID, SELFPAY | PROVIDERS: PCP Internal Medicine | DX: Z01.818 Encounter for other preprocedural examination (principal); E11.42 Type 2 diabetes mellitus with diabetic polyneuropathy; E11.319 Type 2 diabetes mellitus with unspecified diabetic retinopathy without macular edema; M72.2 Plantar fascial fibromatosis; I10 Essential (primary) hypertension; E78.2 Mixed hyperlipidemia; E66.9 Obesity, unspecified; K21.9 Gastro-esophageal reflux disease without esophagitis; K50.919 Crohn's disease, unspecified, with unspecified complications; N18.31 Chronic kidney disease, stage 3a; G47.33 Obstructive sleep apnea (adult) (pediatric); Z79.4 Long term (current) use of insulin; Z68.31 Body mass index [BMI] 31.0-31.9, adult | CPT/HCPCS: 83036; 96127; 99212 ==

== ENCOUNTER 2025-03-22 11:49 | Outpatient (REF) | payer MEDICARE, MEDICAID, SELFPAY | END 2025-03-22 11:50 | disposition home or self-care (01) | LOC: HO.LAB 11:49 | PROVIDERS: PCP Internal Medicine | DX: E11.10 Type 2 diabetes mellitus with ketoacidosis without coma (principal); Z01.818 Encounter for other preprocedural examination | CPT/HCPCS: 36415; 83036 ==

== ENCOUNTER 2025-04-04 11:42 | Outpatient (AMB) | payer MEDICARE, MEDICAID, SELFPAY ==
[2025-04-04 11:51] VITALS: BP 118/60; PULSE 62; RESP 18; TEMP 36.3; O2SAT 96; BMI 31.8
--- NOTE | 2025-04-04 11:51 | MHC.PC.OV ---
Vital Signs 04/04/25 11:51 Height 6 ft 1 in Weight 241 lb BMI 31.8 BP 118/60 Blood Pressure Location Lt brachial Position Sitting Respiration 18 Pulse 62 Pulse Source Pulse Oximeter Temp 97.3 F Temp Source Temporal Artery Scan Pulse Oximetry (%) 96 Oxygen Delivery Method Room Air Intake Visit Reasons: [place] [employer] Vitrectomy 04/19 lt eye Manager Statistical Required: No Accompanied by: Self / Same As Patient Allergies sertraline (SERTRALINE) Allergy (Severe, Verified 04/04/25 12:03) RASH, ABD PAIN DEHYDRATION Penicillins (PENICILLINS) Allergy (Intermediate, Verified 04/04/25 12:03) RASH Medication List - Last Reconciled 04/04/25 by JESUS Farr albuterol sulfate 90 mcg/actuation (Ventolin HFA) 2 puffs inhalation Q6H PRN 30 days amlodipine 5 mg PO DAILY 90 days aspirin (Adult Low Dose Aspirin) 81 mg PO DAILY atenolol 50 mg PO DAILY [BATHTUB TRANSFER BENCH EXTENSION LEGS As directed] bisacodyl (Dulcolax (bisacodyl)) 10 mg (2 x 5 mg) PO ONCE 1 day blood sugar diagnostic ([employer] Verio test strips) As directed- in vitro 3 times a day blood-glucose sensor ([employer] G6 Sensor device) As directed blood-glucose transmitter ([employer] G6 Transmitter device) USE TO TEST BLOOD SUGAR THREE TIMES DAILY blood-glucose,color receiver,cont ([employer] G6 Matrix Bath Attendant) As directed bupropion HCl XL 150 mg PO DAILY buspirone 5 mg PO BID celecoxib mg PO BID cholecalciferol (vitamin D3) 250 mcg PO 2XW 90 days cyanocobalamin (vitamin B-12) 1,000 mcg PO DAILY fluoxetine 60 mg (3 x 20 mg) PO DAILY 30 days fluticasone propionate 50 mcg/actuation 1 spray intranasal DAILY insulin lispro (Humalog KwikPen (U-100) Insulin) Take 2 to 8 units SQ 4 times a day - with meals and at bedtime - PER SLIDING SCALE (see below for sliding scale details) Insulin as advised before meals 0-150: 0 unit 151-200: 2 units 201-250: 4 units 251-300: 6 units 301-350: 8 units >351 call irbesartan 300 mg PO DAILY lancets (Cemp[employer] Delica Lancets) As directed Lantus Solostar U-100 Insulin (insulin glargine) 70 units (0.7 mL) subcut DAILY NS melatonin 3 mg PO BEDTIME PRN metformin 1,000 mg PO BID mirtazapine 15 mg PO BEDTIME omeprazole 40 mg PO BID oxycodone 5 mg PO Q4-6H PRN pen needle, diabetic (Easy Touch) 1 ea miscellaneous BID 30 days polyethylene glycol 3350 (Miralax) 17 grams PO BID 30 days pyridoxine (vitamin B6) 50 mg PO DAILY 30 days rosuvastatin 10 mg PO DAILY 90 days sennosides (senna) 17.2 mg (2 x 8.6 mg) PO DAILY PRN 90 days [shower chair As directed] trazodone 100 mg PO BEDTIME PRN 90 days Tobacco use date assessed: 04/04/25 Fall risk assessment: No Falls in past year Last assessed Fall Risk: 04/04/25 Dental Screening Dental Screen Date: 04/04/25 Did you have a dental visit in the last 12 months?: No Did you have a dental problem in the last 6 months where you did not have access to dental care?: No Was dental information given to patient?: No HPI [place] [employer] Vitrectomy 04/19 eye HPI Details The patient is a 69-year-old male who was presenting for preop clearance. Patient of Dr. Lopez, was seen on 02/23/2025 in office for clearance for the same procedure. The patient is scheduled to have a vitrectomy of the left eye on April 19 2025. There is no absolute contraindications to prevent the patient from going under MAC anesthesia. However, he is at high risk for post operative complications due to his elevated A1c at 10.3%, like delayed healing, etc. The patient has a history of diabetes mellitus diagnosed in 2006, which has been challenging to manage due to dietary habits, including excessive consumption of sweets. His hemoglobin A1c has decreased from 12.1% to 10.7%, now at 10.3% progressing the right direction but still raising concerns about surgical healing. Similarly, the patient had to cancelled a cataract surgery in the past until he was able to get this under control for surgical clearance. Encouraged the patient to working get his A1c below 8.5%, per patient he was told by his surgeon that if he gets his A1C between 9-10% they will work with. The patient reports a history of cataracts and has undergone cataract surgery in the past. He is scheduled for a vitrectomy due to vitreous opacity, which affects his vision, causing significant blurriness and difficulty seeing at a distance. The patient also has neuropathy, which has resulted in decreased sensation in his feet, making him unaware of injuries unless visually observed. 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 Additionally, the patient suffers from plantar fasciitis, for which he has been prescribed Celebrex, providing significant pain relief. Surgeon/location: Dr. Jose Melgar at [facility] or [facility] [place] Surgery Date: 04/19/25 Phone number: [phone] option 3 Patient reports having similar surgery in the past without any issues. He denies any post surgery hypothermia or clotting disorder and he is not on any blood thinners. Discussed with the patient that he should stop this celecoxib 3 days before surgery, hold metformin the night before surgery, and only take half of the Lantus the day of surgery. Hold fast acting insulin the day of surgery, may take other medication with sips of water. The patient reports that he is currently not taking his fast acting insulin because he lost his glucometer and the insurance won't pay for a new so soon. Denies chest pain, shortness of breath, heart palpitation or dizziness Denies abdominal pain or change in bowel habits; patient has a history of Crohn's disease in his bowel habits fluctuates normally. [facility] Medical History Overweight (BMI 25.0-29.9) Type 2 diabetes mellitus with stage 3b chronic kidney disease, with long-term current use of insulin Mixed hyperlipidemia Obstructive sleep apnea Memory impairment Environmental allergies Chronic kidney disease (CKD), stage III (moderate) Prostate cancer screening H/O hyperkalemia Recurrent cough Obesity (BMI 30-39.9) Depression Anxiety Insomnia Primary osteoarthritis, left shoulder Crohn's disease GERD (gastroesophageal reflux disease) Pure hypercholesterolemia Benign essential hypertension Microalbuminuria correction (current) use of insulin Type 2 diabetes mellitus with diabetic polyneuropathy Allergic rhinitis Surgical History Hx of foot surgery (11/05/23) History of esophagogastroduodenoscopy (EGD) Hx of colonoscopy History of umbilical hernia repair Family History Father Diabetes Melanoma Mother Diabetes Hypertension Cancer Sister Diabetes Social History Household Members: None Housing: Apartment Do you presently have visiting nurse or other home services: No Alcohol intake: former Patient Tobacco Use Status: Former Tobacco user Tobacco use type: Cigarette e-Cigarette/Vaping Use: Never Used Second Hand Smoke Exposure: Yes service: No Current occupational status: employed Cognitive needs: No Hearing needs: No Vision needs: No Questionnaire Thrive Questionnaire Date Thrive assessed: 02/02/25 I am a: Patient What is your living situation today?: I have a steady place to live Within the past 12 months, did the food you bought not last and you didn't have the money to get more?: Never true Within the past 12 months, did you worry whether your food would run out before you got money to buy more?: Never true Do you have trouble paying for medicines?: No Do you have trouble getting transportation to medical appointments?: Yes Do you have trouble paying your heating and electricity bill?: No Do you have trouble taking care of your child, family member or friend?: No Do you have trouble with day-to-day activities such as bathing, preparing meals, shopping, managing finances, etc.?: No Are you currently unemployed and looking for a job?: No Are you interested in more education?: No Please select the resources that you would like help with: None Currently or been in a relationship where the following occur: No concerns reported THRIVE Score: 1 NOHEMY-7 AMB Questionnaire NOHEMY-7 Date NOHEMY - 7 assessed: 02/23/25 Source: Developed by Drs. Kirill Hanna, Jeimy Garcia, Bijan Milian and colleagues, with an educational rolanda from [email or web address]. Review of Systems Const Denies headache(s) Eyes Reports blurry vision and Denies loss of vision ENT Denies vertigo, Denies dizziness, Denies headache(s) and Denies sore throat Card Denies chest pain, Denies leg edema and Denies lightheadedness Resp Denies cough, Denies hemoptysis and Denies wheezing GI Denies abdominal pain, Denies melena, Denies constipation, Denies diarrhea and Denies vomiting Denies dysuria, Denies urinary frequency and Denies urinary urgency Musc Denies arthralgias, Denies joint swelling, Reports numbness (decreased sensation in lower extremities) and Denies tingling Neuro Denies Abnormal speech present, Denies behavioral changes, Denies vertigo, Denies dizziness, Denies headache(s), Denies loss of vision, Denies memory loss, Reports numbness (decreased sensation in lower extremities) and Denies tingling Psych Denies anxiety, Denies behavioral changes, Denies depression, Denies memory loss and Denies panic attacks Son/Lymph Denies easy bleeding and Denies easy bruising Aller/Immun Denies wheezing Physical exam (Primary Care) Vital Signs: Last Vital Signs Temp 97.3 F 04/04/25 11:51 Pulse 62 04/04/25 11:51 Resp 18 04/04/25 11:51 BP 118/60 04/04/25 11:51 Pulse Ox 96 04/04/25 11:51 Oxygen Delivery Method Room Air 04/04/25 11:51 BMI result Body Mass Index 31.8 Tobacco/Smoking Status: Tobacco use Status Tobacco use date assessed 04/04/25 04/04/25 11:55 Patient Tobacco Use Status Former Tobacco user 04/04/25 11:55 Tobacco use type Cigarette 04/04/25 11:55 e-Cigarette/Vaping Use Never Used 04/04/25 11:55 Thrive Assessment: Date of Thrive Assessment Date Thrive assessed 02/02/25 04/04/25 11:55 Currently or been in a relationship where the following occur: No concerns reported Const General: healthy appearing, no acute distress, alert and awake Nutritional Appearance: well nourished Orientation/consciousness: oriented to person, oriented to place and oriented to time HENMT Ears: TM's normal bilaterally General nose exam: Normal nasal mucous membranes and turbinates present Eyes Conjunctivae: conjunctivae normal Sclerae: sclerae normal Pupils: Equal, round and reactive pupils present Neck Neck: Yes no lymphadenopathy and Yes no JVD Thyroid: Thyroid normal Carotids: no bruits Resp Effort & Inspection: normal respiratory effort and not tachypneic Auscultation: no crackles, no rales, no rhonchi and no wheezes Cardio Rate: regular rate Rhythm: regular rhythm Heart sounds: no murmurs and normal S1 and S2 GI Palpation (GI): Soft to palpation, nontender, no hepatomegaly and no splenomegaly Auscultation: normal bowel sounds Skin General skin exam: no rashes or lesions noted and dry skin Neuro General: oriented to person, oriented to place and oriented to time Cranial nerves: Yes Equal, round and reactive pupils present Speech: No Abnormal speech present Gait exam (Neuro): Normal gait present Motor exam (neuro): no tremor noted Extrem Right upper extremity: full ROM Left upper extremity: full ROM Right lower extremity: full ROM; no edema Left lower extremity: full ROM; no edema Psych Mental Status: mental status grossly normal Speech and movement: Normal speech and movement present Affect: normal affect Attitude: cooperative Thought process: Normal thought process present Results Reviewed Results Reviewed: Laboratory Tests 02/02/25 02/02/25 03/22/25 10:30 10:37 11:53 WBC 7.2 RBC 4.36 L Hgb 12.9 L Hct 37.7 L MCV 86.5 MCH 29.6 MCHC 34.2 RDW 12.7 Plt Count 325 MPV 12.0 Sodium 136 Potassium 4.7 Chloride 104 Carbon Dioxide 25 Anion Gap 12 BUN 31 H Creatinine 1.79 H Estimated GFR 38 Estimat Average Glucose 249 Hemoglobin A1c % 10.3 H Calcium 9.1 Iron 68 TIBC 315 % Saturation 22 Unsat Iron Binding 247 Ferritin 30 Total Bilirubin 0.4 AST 28 ALT 21 Alkaline Phosphatase 128 H C-Reactive Protein 0.39 Total Protein 7.4 Albumin 4.4 Triglycerides 719 H Cholesterol 214 H HDL Cholesterol 24 L Vitamin B12 1495 H 25-OH Vitamin D Total 36.9 Folate 5.5 TSH 2.84 Urine Color Yellow Urine Appearance Clear Urine pH 5.5 Ur Specific [place] >= 1.030 H Urine Protein Trace Urine Glucose (UA) >=1000 H Urine Ketones Negative Urine Blood Negative Urine Nitrite Negative Ur Leukocyte Esterase Negative Urine RBC 0-2 Urine WBC 0-5 Ur Squamous Epith Cells 0-2 Hyaline Casts 0-2 Urine Creatinine 45.39 Urine Microalbumin 103.0 Microalb/Creat Ratio 226.9 H Coding Level of Care Code Est Pt Level 4 (24219) Diagnoses Preoperative clearance Z01.818 Benign essential hypertension I10 Mixed hyperlipidemia E78.2 Type 2 diabetes mellitus with diabetic polyneuropathy, with long-term current use of insulin E11.42; Z79.4 Diabetes mellitus penitentiary insulin use: with 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 Obesity (BMI 30-39.9) E66.9 Gastroesophageal reflux disease without esophagitis K21.9 Esophagitis presence: without esophagitis Crohn's disease with complication, unspecified gastrointestinal tract location K50.919 Gastrointestinal tract location: unspecified location Digestive disease complication type: unspecified complication Stage 3a chronic kidney disease N18.31 Chronic kidney disease stage 3 subtype: stage 3a (GFR 45-59) Obstructive sleep apnea G47.33 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 However, he is at high risk for post operative complications due to his elevated A1c at 10.3%, like delayed healing, etc. (2) Benign essential hypertension: Code(s): I10 - Essential (primary) hypertension Category: Medical Plan: Blood pressure within goal Reinforced low-salt diet Continue irbesartan 300 mg daily, atenolol 50 mg daily (3) Mixed hyperlipidemia: Code(s): E78.2 - Mixed hyperlipidemia Category: Medical Plan: Triglycerides 117, total cholesterol 214, HDL 24-unable to calculate LDL due to elevated triglycerides on 02/02/2025 Discussed lifestyle modifications including dietary changes and physical activity Continue rosuvastatin 20 mg daily Explained to the patient that if his glucose is better controlled his triglycerides will follow (4) Type 2 diabetes mellitus with diabetic polyneuropathy: Code(s): E11.42 - Type 2 diabetes mellitus with diabetic polyneuropathy Category: Medical Qualifiers: Diabetes mellitus dedicated intermodal truck driver insulin use: with 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 Qualified Code(s): E11.42 - Type 2 diabetes mellitus with diabetic polyneuropathy; Z79.4 - correction (current) use of insulin Plan: The patient's diabetes mellitus is poorly controlled, with a recent hemoglobin A1c of 10.3%. He has been advised to modify his diet to reduce his A1c to below 8.5% to ensure surgical clearance for his upcoming vitrectomy. The patient reports that he has been eating a lot of ice cream and did not want to make any changes to his medications. Medications such as metformin and insulin require adjustment around the time of surgery, with specific instructions to hold metformin the night before and morning of the procedure and to take half the usual dose of Lantus insulin. (5) Obesity (BMI 30-39.9): Code(s): E66.9 - Obesity, unspecified Category: Medical Plan: Discussed lifestyle modifications including dietary changes and physical activity (6) GERD (gastroesophageal reflux disease): Code(s): K21.9 - Gastro-esophageal reflux disease without esophagitis Category: Medical Qualifiers: Esophagitis presence: without esophagitis Qualified Code(s): K21.9 - Gastro-esophageal reflux disease without esophagitis Plan: Reinforced dietary restriction Continue omeprazole 40 mg b.i.d. (7) Crohn's disease: Code(s): K50.90 - Crohn's disease, unspecified, without complications Category: Medical Qualifiers: Gastrointestinal tract location: unspecified location Digestive disease complication type: unspecified complication Qualified Code(s): K50.919 - Crohn's disease, unspecified, with unspecified complications Plan: Currently stable with no recent flare ups He was on Lialda 1.2 mg 2 tablets daily in the past but he stopped taking it a while back as he could not afford the cost of the Rx (8) Chronic kidney disease (CKD), stage III (moderate): Code(s): N18.30 - Chronic kidney disease, stage 3 unspecified Category: Medical Qualifiers: Chronic kidney disease stage 3 subtype: stage 3a (GFR 45-59) Qualified Code(s): N18.31 - Chronic kidney disease, stage 3a Plan: The patient kidney function as noted to decrease some attributed to poor glucose control. The patient is motivated to cut back on sweets in order to get his A1c down for surgery. We will continue to monitor (9) Obstructive sleep apnea: Code(s): G47.33 - Obstructive sleep apnea (adult) (pediatric) Category: Medical Plan: Continue CPAP (10) Diabetic retinopathy: Code(s): E11.319 - Type 2 diabetes mellitus with unspecified diabetic retinopathy without macular edema Category: Medical Qualifiers: Diabetes mellitus type: type 2 Diabetic retinopathy severity: with unspecified retinopathy severity Diabetes mellitus macular edema: without macular edema Laterality: bilateral Qualified Code(s): E11.319 - Type 2 diabetes mellitus with unspecified diabetic retinopathy without macular edema Plan: Patient reports blurry vision. He has a plan vitrectomy in his presenting for clearance today. Clearance is unable to be granted given the patient elevated A1c at 10.3%. Discussed with the patient that this may complicates his healing process.
== END 2025-04-04 12:24 | disposition home or self-care (01) ==
PROVIDERS: PCP Internal Medicine
DX: I12.9 Hypertensive chronic kidney disease with stage 1 through stage 4 chronic kidney disease, or unspecified chronic kidney disease (principal); E11.42 Type 2 diabetes mellitus with diabetic polyneuropathy; Z79.4 Long term (current) use of insulin; N18.31 Chronic kidney disease, stage 3a; K50.919 Crohn's disease, unspecified, with unspecified complications; E11.319 Type 2 diabetes mellitus with unspecified diabetic retinopathy without macular edema; Z01.818 Encounter for other preprocedural examination; E66.9 Obesity, unspecified; E78.2 Mixed hyperlipidemia; K21.9 Gastro-esophageal reflux disease without esophagitis; G47.33 Obstructive sleep apnea (adult) (pediatric)

== ENCOUNTER → 2025-04-04 11:42 | Outpatient (BNVA) | payer MEDICARE, MEDICAID, SELFPAY | PROVIDERS: PCP Internal Medicine | DX: Z01.818 Encounter for other preprocedural examination (principal); E11.42 Type 2 diabetes mellitus with diabetic polyneuropathy; E11.319 Type 2 diabetes mellitus with unspecified diabetic retinopathy without macular edema; M72.2 Plantar fascial fibromatosis; I10 Essential (primary) hypertension; E78.2 Mixed hyperlipidemia; E66.9 Obesity, unspecified; K21.9 Gastro-esophageal reflux disease without esophagitis; K50.919 Crohn's disease, unspecified, with unspecified complications; N18.31 Chronic kidney disease, stage 3a; G47.33 Obstructive sleep apnea (adult) (pediatric); Z79.4 Long term (current) use of insulin; Z68.31 Body mass index [BMI] 31.0-31.9, adult | CPT/HCPCS: 99212 ==

== ENCOUNTER 2025-05-24 09:23 | Outpatient (AMB) | payer MEDICARE, MEDICAID, SELFPAY ==
--- NOTE | 2025-05-24 09:29 | MHC.PC.OV ---
Vital Signs 05/24/25 09:30 Height 6 ft 1 in Weight 243 lb 2 oz BMI 32.1 BP 130/70 Blood Pressure Location Lt brachial Position Sitting Pulse 62 Pulse Source Pulse Oximeter Pulse Oximetry (%) 96 Oxygen Delivery Method Room Air Intake Visit Reasons: Annual PE - see comments Fiction And Nonfiction Author Required: No Accompanied by: Self / Same As Patient Allergies sertraline (SERTRALINE) Allergy (Severe, Verified 05/24/25 09:46) RASH, ABD PAIN DEHYDRATION Penicillins (PENICILLINS) Allergy (Intermediate, Verified 05/24/25 09:46) RASH Medication List - Last Reconciled 05/24/25 by Marcelo Lopez MD albuterol sulfate 90 mcg/actuation (Ventolin HFA) 2 puffs inhalation Q6H PRN 30 days amlodipine 5 mg PO DAILY 90 days aspirin (Adult Low Dose Aspirin) 81 mg PO DAILY atenolol 50 mg PO DAILY [BATHTUB TRANSFER BENCH EXTENSION LEGS As directed] bisacodyl (Dulcolax (bisacodyl)) 10 mg (2 x 5 mg) PO ONCE 1 day blood sugar diagnostic ([employer] Verio test strips) As directed- in vitro 3 times a day blood-glucose sensor ([employer] G6 Sensor device) As directed blood-glucose transmitter ([employer] G6 Transmitter device) USE TO TEST BLOOD SUGAR THREE TIMES DAILY blood-glucose,companion caregiver,cont ([employer] G6 Regional Hr Manager) As directed bupropion HCl XL 150 mg PO DAILY buspirone 5 mg PO BID celecoxib mg PO BID cholecalciferol (vitamin D3) 250 mcg PO 2XW 90 days cyanocobalamin (vitamin B-12) 1,000 mcg PO DAILY fluoxetine 60 mg (3 x 20 mg) PO DAILY 30 days fluticasone propionate 50 mcg/actuation 1 spray intranasal DAILY insulin lispro (Humalog KwikPen (U-100) Insulin) Take 2 to 8 units SQ 4 times a day - with meals and at bedtime - PER SLIDING SCALE (see below for sliding scale details) Insulin as advised before meals 0-150: 0 unit 151-200: 2 units 201-250: 4 units 251-300: 6 units 301-350: 8 units >351 call irbesartan 300 mg PO DAILY lancets ([employer]ica Lancets) As directed Lantus Solostar U-100 Insulin (insulin glargine) 70 units (0.7 mL) subcut DAILY NS melatonin 3 mg PO BEDTIME PRN metformin 1,000 mg PO BID mirtazapine 15 mg PO BEDTIME omeprazole 40 mg PO BID oxycodone 5 mg PO Q4-6H PRN pen needle, diabetic (Easy Touch) 1 ea miscellaneous BID 30 days polyethylene glycol 3350 (Miralax) 17 grams PO BID 30 days pyridoxine (vitamin B6) 50 mg PO DAILY 30 days rosuvastatin 10 mg PO DAILY 90 days sennosides (senna) 17.2 mg (2 x 8.6 mg) PO DAILY PRN 90 days [shower chair As directed] trazodone 100 mg PO BEDTIME PRN 90 days Tobacco use date assessed: 05/24/25 Fall risk assessment: No Falls in past year Last assessed Fall Risk: 05/24/25 Dental Screening Dental Screen Date: 05/24/25 Did you have a dental visit in the last 12 months?: No Did you have a dental problem in the last 6 months where you did not have access to dental care?: No Was dental information given to patient?: No HPI Annual PE - see comments HPI Details Patient comes in today for his annual physical examination States that he feels okay but continues to experience increased pain in his right foot - this is the foot that had osteomyelitis and amputation on earlier this year States that he continues to follow up with Dr. Bass for this and he has an appointment coming up with him right after [place] He denies any headaches or dizziness Denies any chest pains, no SOB No nausea/vomiting, no abdominal pain No change in bowel habits noted He denies any acute urinary symptoms Adds that his depression is currently adequately managed on his current Rx States that he still has not been able to get his eye surgery done yet as his eye doctor is supposedly waiting for his medical clearance from us He was not able to get his previously ordered labs done so he has no follow up labs done in the past 3 months or so He had his screening colonoscopy last done with Dr. Rush in 04/2021 and was recommended for repeat colonoscopy in 5 years due to his Hx of Crohn's disease [facility] Medical History Overweight (BMI 25.0-29.9) Type 2 diabetes mellitus with stage 3b chronic kidney disease, with long-term current use of insulin Mixed hyperlipidemia Obstructive sleep apnea Memory impairment Environmental allergies Chronic kidney disease (CKD), stage III (moderate) Prostate cancer screening H/O hyperkalemia Recurrent cough Obesity (BMI 30-39.9) Depression Anxiety Insomnia Primary osteoarthritis, left shoulder Crohn's disease GERD (gastroesophageal reflux disease) Pure hypercholesterolemia Benign essential hypertension Microalbuminuria FDC (current) use of insulin Type 2 diabetes mellitus with diabetic polyneuropathy Allergic rhinitis Surgical History (Updated 05/24/25 @ 09:51 by Marcelo Lopez MD) Hx of foot surgery (11/05/23) History of esophagogastroduodenoscopy (EGD) Hx of colonoscopy History of umbilical hernia repair Family History Father Diabetes Melanoma Mother Diabetes Hypertension Cancer Sister Diabetes Social History Household Members: None Housing: Apartment Do you presently have visiting nurse or other home services: No Alcohol intake: former Patient Tobacco Use Status: Former Tobacco user Tobacco use type: Cigarette e-Cigarette/Vaping Use: Never Used Second Hand Smoke Exposure: Yes service: No Current occupational status: employed Cognitive needs: No Hearing needs: No Vision needs: No Questionnaire PHQ-9 Over the last 2 weeks, how often have you been bothered by any of the following problems? 1. Little interest or pleasure in doing things: not at all 2. Feeling down, depressed, or hopeless: not at all 3. Trouble falling or staying asleep, or sleeping too much: not at all 4. Feeling tired or having little energy: several days 5. Poor appetite or overeating: several days 6. Feeling bad about yourself - or that you are a failure or have let yourself or your family down: not at all 7. Trouble concentrating on things, such as reading the newspaper or watching television: several days 8. Moving or speaking so slowly that other people could have noticed. Or the opposite - being so fidgety or restless that you have been moving around a lot more than usual: not at all 9. Thoughts that you would be better off or of hurting yourself in some way: not at all Total score: 3 Depression Screening Interpretation: Positive Depression Screening Follow-up: Existing condition and In treatment Depression Screening Done: Yes 23860 - PHQ-9 Billing: Yes Source: Developed by Drs. Kirill Hanna, Jeimy Garcia, Bijan Milian and colleagues, with an educational rolanda from [employer] Thrive Questionnaire Date Thrive assessed: 05/24/25 I am a: Patient What is your living situation today?: I have a steady place to live Within the past 12 months, did the food you bought not last and you didn't have the money to get more?: Never true Within the past 12 months, did you worry whether your food would run out before you got money to buy more?: Never true Do you have trouble paying for medicines?: No Do you have trouble getting transportation to medical appointments?: Yes Do you have trouble paying your heating and electricity bill?: No Do you have trouble taking care of your child, family member or friend?: No Do you have trouble with day-to-day activities such as bathing, preparing meals, shopping, managing finances, etc.?: No Are you currently unemployed and looking for a job?: No Are you interested in more education?: No Please select the resources that you would like help with: None Currently or been in a relationship where the following occur: No concerns reported THRIVE Score: 1 AUDIT C Alcohol Use Questionnaire (AUDIT-C) 1. How often do you have a drink containing alcohol?: Never 3. How often do you have six or more drinks on one occasion?: Never Total Score: 0 Score Reviewed/Action Taken: Yes NOHEMY-7 AMB Questionnaire NOHEMY-7 Date NOHEMY - 7 assessed: 05/24/25 Feeling nervous, anxious, or on edge: 0 = Not at all Not being able to stop or control worryin = Not at all Worrying too much about different things: 0 = Not at all Trouble relaxin = Not at all Being so restless that it is hard to sit still: 0 = Not at all Becoming easily annoyed or irritable: 0 = Not at all Feeling afraid as if something awful might happen: 0 = Not at all Total NOHEMY-7 score (0-4 normal; 5-9 mild; 10-14 moderate; 15-21 severe): 0 Source: Developed by Drs. Kirill Hanna, Jeimy Garcia, Bijan Milian and colleagues, with an educational rolanda from [employer]. Review of Systems Const Denies chills, Denies fatigue, Denies fever(s), Denies headache(s), Denies malaise and Denies weakness Eyes Denies blurry vision, Denies change in vision, Denies irritation and Denies itchy eyes ENT Denies dysphagia, Denies dizziness, Denies otalgia, Denies headache(s), Denies nasal congestion, Denies neck pain, Denies odynophagia and Denies sore throat Card Denies rapid heart rate, Denies irregular heart rhythm, Denies palpitations and Denies dyspnea Resp Denies chest congestion, Denies cough, Denies dyspnea and Denies wheezing GI Denies abdominal pain, Denies bloating, Denies constipation, Denies dysphagia, Denies heartburn, Denies diarrhea, Denies nausea, Denies odynophagia and Denies vomiting Denies hematuria, Denies difficulty urinating, Denies dysuria, Denies urinary frequency and Denies urinary urgency Musc Denies back pain, Denies arthralgias, Denies joint swelling, Denies muscle weakness and Denies neck pain Skin/Breast Denies change in pigmentation, Denies lesions, Denies rash and Denies unusual bruising Neuro Details: increased pain (chronic) in his right foot Denies dizziness, Denies headache(s), Denies paresthesias and Denies weakness Endo Denies fatigue and Denies palpitations Aller/Immun Denies itchy eyes and Denies wheezing Physical exam (Primary Care) Vital Signs: Last Vital Signs Pulse 62 05/24/25 09:30 BP 130/70 05/24/25 09:30 Pulse Ox 96 05/24/25 09:30 Oxygen Delivery Method Room Air 05/24/25 09:30 BMI result Body Mass Index 32.1 Tobacco/Smoking Status: Tobacco use Status Tobacco use date assessed 05/24/25 05/24/25 09:35 Patient Tobacco Use Status Former Tobacco user 05/24/25 09:35 Tobacco use type Cigarette 05/24/25 09:35 e-Cigarette/Vaping Use Never Used 05/24/25 09:35 PHQ-9: PHQ-9 Score PHQ-9: Total score 3 05/24/25 09:52 Depression Screening Interpretation: Positive Depression Screening Follow-up: Existing condition and In treatment Thrive Assessment: Date of Thrive Assessment Date Thrive assessed 05/24/25 05/24/25 09:35 Currently or been in a relationship where the following occur: No concerns reported Const General: no acute distress, alert and awake Orientation/consciousness: patient oriented x3 HENMT Head: Yes normocephalic and Yes atraumatic Ears: external ears normal, TM's normal bilaterally and EAC's normal General nose exam: No nasal discharge present Face and sinus: Yes normal facial exam and Yes sinuses nontender Teeth and gingiva: dentition normal Throat: Yes posterior oropharynx normal and Yes tonsils normal (no TP congestion) Eyes Eyelids: Yes eyelids normal Conjunctivae: conjunctivae normal Pupils: Equal, round and reactive pupils present EOM: EOMs intact bilaterally Neck Neck: Yes no lymphadenopathy and Yes supple Thyroid: Thyroid normal Resp Auscultation: clear to auscultation bilaterally, no rales and no wheezes Cardio Rate: regular rate Rhythm: regular rhythm Heart sounds: no murmurs GI Palpation (GI): Soft to palpation, nontender and No hepatosplenomegaly present Auscultation: normal bowel sounds General: Yes no CVA tenderness Back/Spine/Pelvis Back: no CVA tenderness Thoracic/Lumbar Spine: thoracic and lumbar spine normal to inspection Skin Lesions: no lesions Rashes: no rashes Neuro General: patient oriented x3, moves all extremities, no focal motor deficits and CN's II-XI intact bilaterally Cranial nerves: Yes Equal, round and reactive pupils present Cognition (Neuro): normal cognition Gait exam (Neuro): Normal gait present Extrem General: Yes no clubbing, cyanosis or edema Results AMB Hemoglobin A1c AMB Hemoglobin A1c 8.8 % Last Edit by JASE Rojas on 05/24/25 10:05 Coding Level of Care Code Est Pt Prev Care >65y(88438) Diagnoses Annual physical exam Z00.00 Type 2 diabetes mellitus with stage 3b chronic kidney disease, with long-term current use of insulin E11.22; N18.32; Z79.4 Stage 3a chronic kidney disease N18.31 Chronic kidney disease stage 3 subtype: stage 3a (GFR 45-59) Mixed hyperlipidemia E78.2 Neuropathy G62.9 Benign essential hypertension I10 Obstructive sleep apnea G47.33 Crohn's disease with complication, unspecified gastrointestinal tract location K50.919 Gastrointestinal tract location: unspecified location Digestive disease complication type: unspecified complication Constipation, unspecified constipation type K59.00 Constipation type: unspecified constipation type Primary insomnia F51.01 Insomnia type: primary Anxiety F41.9 Episode of recurrent major depressive disorder, unspecified depression episode severity F33.9 Depression Type: major depressive disorder Major depression recurrence: recurrent Active/Remission status: currently active Major depression episode severity: unspecified Obesity (BMI 30-39.9) E66.9 Additional Codes PHQ-9 - 04555 - PHQ-9 Billing: Yes ([id number]) Assessment & Plan Assessment & Plan (1) Annual physical exam: Code(s): Z00.00 - Encounter for general adult medical examination without abnormal findings Category: Medical Plan: Check labs ISACC to complete his annual exam today - his labs have been ordered previously and updated today and patient is advised to get and get these done ISACC as he is still fasting at this time He had his screening colonoscopy last done with Dr. Rush in 04/2021 and was recommended for repeat colonoscopy in 5 years (2025) due to his Hx of Crohn's disease (2) Type 2 diabetes mellitus with stage 3b chronic kidney disease, with long-term current use of insulin: Code(s): E11.22 - Type 2 diabetes mellitus with diabetic chronic kidney disease; N18.32 - Chronic kidney disease, stage 3b; Z79.4 - intermediate project manager (current) use of insulin Category: Medical Plan: His in-office HgbA1c today is at 8.8% (his HgbA1c was at 10.3% a couple of months ago in March 2025) - goal is at least <7.0% Reinforced diabetic diet - he has been advised that with the recent improvement in his glycemic control, he needs to be more attentive to his diet over the holidays so as not to have his diabetes control regress again Continue Lantus Solostar 70 units Q HS, Humalog Kwikpen 2 to 8 units SQ 4 times a day (with meals and at bedtime) per sliding scale and Metformin 1000 mg BID We tried starting him on Trulicity in the past but he could not afford the co-pay for his Rx He was seeing Dr. Burnham at [facility] for his diabetes management but he has not been seen by Dr. Burnham in a while now Will try to have him see endocrinology here at [facility] instead for better coordination of care - referral placed (3) Chronic kidney disease (CKD), stage III (moderate): Code(s): N18.30 - Chronic kidney disease, stage 3 unspecified Category: Medical Qualifiers: Chronic kidney disease stage 3 subtype: stage 3a (GFR 45-59) Qualified Code(s): N18.31 - Chronic kidney disease, stage 3a Plan: His renal function has been gradually progressing lately, likely due to his poor glycemic control earlier this year Will continue to monitor his renal function regularly/closely - have advised patient to go and get his follow up labs done today as soon as he checks out of the office (4) Mixed hyperlipidemia: Code(s): E78.2 - Mixed hyperlipidemia Category: Medical Plan: He was not able to get his follow up labs done prior to coming in for his appt today and have advised him to go and get them done as soon as he is done with his office visit today Reinforced low cholesterol diet Continue Rosuvastatin 10 mg QD - Rx was held when he was on Daptomycin for his osteomyelitis earlier this year (he had some unrecalled problems with Atorvastatin in the past but is tolerating Rosuvastatin with no issues) Will recheck his labs and fasting lipids again in 3 months for follow up (5) Neuropathy: Code(s): G62.9 - Polyneuropathy, unspecified Category: Medical Plan: Continue Oxycodone 5 mg Q 4 to 6 hours PRN only for severe pain (6) Benign essential hypertension: Code(s): I10 - Essential (primary) hypertension Category: Medical Plan: Reinforced low sodium diet - goal is systolic BP of at least 120 to 130 mm or less Continue Irbesartan 300 mg QD and Amlodipine 5 mg QD He used to also take HCTZ 12.5 mg QD in the past but this was discontinued at some point, likely when he presented to the hospital with DELVIS earlier this year He is reminded to continue monitoring his blood pressure regularly (7) Obstructive sleep apnea: Code(s): G47.33 - Obstructive sleep apnea (adult) (pediatric) Category: Medical Plan: He was diagnosed with HERSON last year and is now on CPAP therapy when he sleeps at night Follow up with Sleep Medicine as scheduled (8) Crohn's disease: Code(s): K50.90 - Crohn's disease, unspecified, without complications Category: Medical Qualifiers: Gastrointestinal tract location: unspecified location Digestive disease complication type: unspecified complication Qualified Code(s): K50.919 - Crohn's disease, unspecified, with unspecified complications Plan: Currently stable with no recent flare ups He was on Lialda 1.2 mg 2 tablets daily in the past but he stopped taking it a while back as he could not afford the cost of the Rx Follow up with GI (Dr. Rush) as scheduled - he will be due for repeat colonoscopy late next year (9) Constipation: Code(s): K59.00 - Constipation, unspecified Category: Medical Qualifiers: Constipation type: unspecified constipation type Qualified Code(s): K59.00 - Constipation, unspecified Plan: Reinforced increased oral fluids and dietary fiber intake Continue Senna 8.6 mg 2 tablets Q HS PRN Follow up with GI (Dr. Rush) as scheduled (10) Insomnia: Code(s): G47.00 - Insomnia, unspecified Category: Medical Qualifiers: Insomnia type: primary Qualified Code(s): F51.01 - Primary insomnia Plan: Sleep hygiene reinforced He is on Mirtazapine, which helps with his sleep at night He could not tolerate Trazodone in the past - states that he felt like a zombie the next day He has also tried 1/2 tablet of OTC Melatonin 10 mg - states that it also knocks him out but not as much as Trazodone did Advised that he can continue Melatonin if it helps and there should be no concerning long-term side effects from it, including any habit-forming potential (11) Anxiety: Code(s): F41.9 - Anxiety disorder, unspecified Category: Medical Plan: Continue Lorazepam 0.5 mg QD PRN (12) Depression: Code(s): F32.9 - Major depressive disorder, single episode, unspecified Category: Medical Qualifiers: Depression Type: major depressive disorder Major depression recurrence: recurrent Active/Remission status: currently active Major depression episode severity: unspecified Qualified Code(s): F33.9 - Major depressive disorder, recurrent, unspecified Plan: Continue Fluoxetine 60 mg QD and Mirtazapine 15 mg Q HS Follow up with psychiatry as scheduled (13) Obesity (BMI 30-39.9): Code(s): E66.9 - Obesity, unspecified Category: Medical Plan: Reinforced diet; exercise and weight loss are unrealistic at this time given patient's recent osteomyelitis, toe amputation and other physical issues Plan Follow up in 3 months Have advised patient that at this time, with his improving glycemic control and his HgbA1c currently being at 8.8% today, he should be okay and medically stable enough to proceed with his left eye vitrectomy and membrane peel that was previously planned and that I will send a message to his retina specialist, Dr. Melgar, that he should be okay to be scheduled for and to proceed with his eye surgery ISACC Orders: Orders Vitamin D 25-OH Total Today E55.9 - Vitamin D deficiency, unspecified, Z00.00 - Encounter for general adult medical examination without abnormal findings Lipid Panel 3 Months E78.00 - Pure hypercholesterolemia, unspecified Microalbumin, Random (w Creat) 3 Months E11.9 - Type 2 diabetes mellitus without complications Vitamin B12 and Folate Today E53.8 - Deficiency of other specified B group vitamins, Z00.00 - Encounter for general adult medical examination without abnormal findings Glutamic acid decarboxylase Ab Today E11.9 - Type 2 diabetes mellitus without complications, Z00.00 - Encounter for general adult medical examination without abnormal findings C Peptide Today E11.9 - Type 2 diabetes mellitus without complications, Z00.00 - Encounter for general adult medical examination without abnormal findings AMB Hemoglobin A1c Today Z13.9 - Encounter for screening, unspecified Hemoglobin A1c 3 Months E11.9 - Type 2 diabetes mellitus without complications Complete Blood Count Auto Diff 3 Months D64.9 - Anemia, unspecified Comprehensive Dinosaur. Panel Fast 3 Months E78.00 - Pure hypercholesterolemia, unspecified UA CC w/rflx Micro + Cult 3 Months R30.0 - Dysuria Vitamin D 25-OH Total 3 Months E55.9 - Vitamin D deficiency, unspecified Referrals Endocrinology Referral E11.65 - Type 2 diabetes mellitus with hyperglycemia, Z79.4 - FDC (current) use of insulin
[2025-05-24 09:30] VITALS: BP 130/70; PULSE 62; O2SAT 96; BMI 32.1
== END 2025-05-24 10:07 | disposition home or self-care (01) ==
LOC: HO.HMCH 09:24
PROVIDERS: PCP Internal Medicine; Visit Provider Internal Medicine
DX: Z00.00 Encounter for general adult medical examination without abnormal findings (principal); I12.9 Hypertensive chronic kidney disease with stage 1 through stage 4 chronic kidney disease, or unspecified chronic kidney disease; E11.22 Type 2 diabetes mellitus with diabetic chronic kidney disease; N18.32 Chronic kidney disease, stage 3b; Z79.4 Long term (current) use of insulin; N18.31 Chronic kidney disease, stage 3a; K50.919 Crohn's disease, unspecified, with unspecified complications; E78.2 Mixed hyperlipidemia; G62.9 Polyneuropathy, unspecified; G47.33 Obstructive sleep apnea (adult) (pediatric); K59.00 Constipation, unspecified; F51.01 Primary insomnia; F41.9 Anxiety disorder, unspecified; F33.9 Major depressive disorder, recurrent, unspecified

== ENCOUNTER 2025-05-24 09:23 | Outpatient (REF) | payer MEDICARE, MEDICAID, SELFPAY ==
[2025-05-24 10:34] LABS: MANUAL DIFF FLAG NO
[2025-05-24 11:06] LABS: Hematocrit 39.9 % (42.0-52.0); Hemoglobin 13.3 g/dl (14.0-18.0); Imm Gran Abs Auto 0.05 X10*3/uL (0.00-0.03); Imm Gran Pct Auto 0.6 % (0.0-0.4); Lymphocytes Absolute Auto 2.3 X10*3/uL (1.2-4.9); Mean Corpuscular HGB Conc 33.3 g/dl (31.0-36.0); Mean Corpuscular Hemoglobin 29.0 pg (27.0-33.0); Mean Corpuscular Volume 87.1 fL (80.0-98.0); NRBC Abs Auto 0.000 X10*3/uL (0.0-0.012); NRBC Pct Auto 0.0 /100WBC (0.0-0.2); Platelet Count 388 X10*3/uL (160-400); Red Blood Count 4.58 X10*6/uL (4.60-5.80); White Blood Count 8.5 X10*3/uL (4.8-10.8)
[2025-05-24 11:24] LABS: Appearance Urine Clear; Glucose Urine UA >=1000 mg/dL (Negative); PH 5.5 (5.0-9.0); Specific Gravity - Urine 1.020 (1.005-1.025); UMIC TRIGGER UACC YES
[2025-05-24 11:47] LABS: Alanine Aminotransferase 27 U/L (0-40); Albumin Level 4.7 g/dL (3.5-5.0); Alkaline Phosphatase 94 U/L (39-117); Anion Gap 11 (12-20); Aspartate Amino Transferase 24 U/L (5-37); Blood Urea Nitrogen 28 mg/dL (9-16); Calcium 9.2 mg/dL (8.4-10.2); Carbon Dioxide 24 mmol/L (22-29); Chloride 105 mmol/L (96-108); Cholesterol 144 mg/dL (<200); Estimated Glomerular Filt Rate 38; HDL Cholesterol 31 mg/dL (>40); Potassium 4.6 mmol/L (3.3-5.1); Sodium 135 mmol/L (135-145); Total Protein 7.4 g/dL (6.5-8.0); Triglycerides 164 mg/dL (<150)
[2025-05-24 12:08] LABS: Folate 6.3 ng/mL (> or = 4.0); Vitamin B12 1534 pg/mL (200-900)
[2025-05-24 12:54] LABS: Microalbum/Creatinine Ratio Ur 399.4 ug/mg cr (<30)
== END 2025-05-24 09:24 | disposition home or self-care (01) ==
LOC: HO.LAB 09:23
PROVIDERS: PCP Internal Medicine; Visit Provider Internal Medicine
DX: Z00.00 Encounter for general adult medical examination without abnormal findings (principal); E55.9 Vitamin D deficiency, unspecified; D64.9 Anemia, unspecified; E53.8 Deficiency of other specified B group vitamins; E78.00 Pure hypercholesterolemia, unspecified; E11.22 Type 2 diabetes mellitus with diabetic chronic kidney disease; G47.33 Obstructive sleep apnea (adult) (pediatric); F41.9 Anxiety disorder, unspecified; E66.9 Obesity, unspecified; N18.31 Chronic kidney disease, stage 3a; Z94.4 Liver transplant status; K50.919 Crohn's disease, unspecified, with unspecified complications; K59.00 Constipation, unspecified; F51.01 Primary insomnia; Z13.39 Encounter for screening examination for other mental health and behavioral disorders; Z13.31 Encounter for screening for depression
CPT/HCPCS: 36415; 80053; 80061; 81001; 82043; 82306; 82570; 82607; 82746; 83036; 84443; 84681; 85025; 86341; 96127; 99397